=== PATIENT | male | born 1980 | race Asian ===

== ENCOUNTER 2024-08-03 21:37 | Inpatient (IN) | payer MEDICAID, SELFPAY ==
[2024-08-03] VITALS (10 sets, daily range): BP systolic 80–124; BP diastolic 43–69; PULSE 100–130; RESP 16–32; TEMP 37.1; O2SAT 98–100; BMI 24.3
--- NOTE | 2024-08-03 21:47 | EKG_ITS ---
[facility] Test Date: 2024-08-03 Pat Name: LORNA PATINO Department: Room: - Gender: Male Patents Examiner: : 1980 Requested By: Raymundo Steven Order Number: [id number] Reading MD: Raymundo Steven Measurements Intervals [place] Rate: 108 P: 2 NC: 132 QRS: 37 QRSD: 94 T: 29 QT: 362 QTc: 487 Interpretive Statements SINUS TACHYCARDIA NONSPECIFIC T-WAVE ABNORMALITY ABNORMAL RHYTHM ECG No previous ECG available for comparison /store/S0/[id number].pdf
[2024-08-03] MEDS: OCTREOTIDE ACET INJ 1,000 MCG in SODIUM CHLORIDE 0.9% 100 ML 5.1 MCG IV (22:01)
[2024-08-03] MEDS: PANTOPRAZOLE/NS 80MG IV PREMIX 80 MG/100 ML BAG 400 MG IV (22:02)
[2024-08-03] MEDS: OCTREOTIDE ACET INJ 50 mCg/ML VIAL IV (22:02)
[2024-08-03] MEDS: PANTOPRAZOLE/NS 80MG IV PREMIX 80 MG/100 ML BAG 10 MG IV (22:03)
[2024-08-03 22:14] LABS: Basophils # (Auto) 0.1 Thou/mm3 (0.0-0.2); Basophils % (Auto) 1 % (0-2.5); Eosinophils # (Auto) 0.1 Thou/mm3 (0.0-0.5); Eosinophils % (Auto) 1 % (0-10); Immature Granulocytes % (Auto) 0 % (0-0); Immature Granulocytes Auto 0.04 Thou/mm3 (0.00-0.00); Lymphocytes % (Auto) 12 % (10-50); Mean Corpuscular HGB Conc 27.1 g/dl (31.0-37.0); Mean Corpuscular Volume 67 fL (80-100); Monocytes # (Auto) 1.3 Thou/mm3 (0.0-0.8); Monocytes % (Auto) 15 % (0-12); Neutrophils # (Auto) 6.3 Thou/mm3 (1.8-7.7); Neutrophils % (Auto) 71 % (37-80); Nucleated Red Blood Cell # 0.09 Thou/mm3 (0.00-0.00); Nucleated Red Blood Cell % 1 /100 WBC (0); RDW Standard Deviation 63.8 fL (35.1-43.9); Red Blood Count 2.55 Miln/mm3 (4.50-5.90); White Blood Count 8.9 Thou/mm3 (3.8-10.6)
--- NOTE | 2024-08-03 22:15 | PC.NURSE ---
[address]mL vomitted dr bautista aware
[2024-08-03 22:18] LABS: Platelet Count 78 Thou/mm3 (140-440)
[2024-08-03 22:19] LABS: Hemoglobin 4.6 g/dL (13.5-16.0)
[2024-08-03 22:20] LABS: Partial Thromboplastin Time 34.2 Seconds (22.0-36.0); Slide Review Platelets confirmed
[2024-08-03 22:21] LABS: Path Review Blood Smear Sent to Pathologist
[2024-08-03 22:26] LABS: Alanine Aminotransferase 19 U/L (10-49); Albumin, Serum 2.1 gm/dL (3.5-5.0); Albumin/Globulin Ratio 0.4 (1.2-2.2); Alkaline Phosphatase 152 U/L (46-116); Anion Gap 10 (7-16); Aspartate Amino Transferase 74 U/L (0-34); BUN/Creatinine Ratio 11 Ratio (12-20); Bilirubin,Total 9.5 mg/dL (0.3-1.2); Blood Urea Nitrogen 8 mg/dL (9-23); Calcium (Corrected) 8.3 mg/dL (8.5-10.1); Carbon Dioxide 17.5 mMol/L (20.0-31.0); Chloride 103 mMol/L (98-107); Creatinine (Component) 0.7 mg/dL (0.6-1.3); Estimated Creatinine Clearance 124.6 mL/min (>60); Globulin 5.1 gm/dL (2.3-3.5); Glucose 120 mg/dL (74-106); Osmolality,Calculated 260 (275-295); Potassium 3.4 mMol/L (3.4-5.1); Sodium 130 mMol/L (136-145); Total Protein 7.2 gm/dL (5.7-8.2); Troponin I < 0.002 ng/mL (0.0-0.045); eGFR > 60 See Note
[2024-08-03 22:33] LABS: Calcium 6.8 mg/dL (8.3-10.6)
[2024-08-03] MEDS: PHYTONADIONE INJ 10 MG/ML AMP IM (23:06)
--- NOTE | 2024-08-03 23:08 | PD.EDADULT ---
ED General RME/HPI General Chief complaint: GI Bleed Stated complaint: VOMITING BLOOD Time Seen by Provider: 08/03/24 21:42 Source: patient and EMS Arrival date/time: 08/03/24 21:37 Mode of arrival: EMS Limitations: no limitations RME / HPI RME / HPI narrative: Dr. Steven?s Main ED Evaluation: 44-year-old male with a history of alcohol cirrhosis, esophageal varices (last banding 2 years ago) continued alcohol consumption, who presents to the emergency department approximately 2 to 3 days of black tarry stools and now multiple episodes of emesis with bright red blood. He denies chest pain or weakness. Related Data Previous Rx's ?Medication ?Instructions ?Recorded ferrous sulfate 325 mg (65 mg 325 mg PO QDAY 30 days #30 tabs 10/13/22 iron) tablet pantoprazole 40 mg tablet,delayed 40 mg PO QDAY 30 days #30 tabs 10/13/22 release (Protonix) propranolol 10 mg tablet 20 mg (2 x 10 mg) PO BID 30 days 10/13/22 #120 tabs Allergies Allergy/AdvReac Type Severity Reaction Status Date / Time No Known Allergies Allergy Verified 10/13/22 13:45 Review of Systems Review of Systems Systems Reviewed: All systems reviewed, normal except as documented Past Medical History Past Medical History NEUROLOGIC: Negative Neurological Disorders or Seizures CARDIAC: Negative Cardiac Disorders or Congestive Heart Failure RESPIRATORY: Negative Chronic Obstructive Pulmonary Disease (COPD) GASTROINTESTINAL: Positive Cirrhosis, Gastrointestinal Bleed and Esophageal Varices; Negative Gastrointestinal Disorders or Hepatitis GENITOURINARY: Negative Genitourinary Disorders or Renal Disease MUSCULOSKELETAL: Negative Musculoskeletal Disorders ENDOCRINE: Negative Endocrine Disorders, Diabetes Mellitus Type 1 or Diabetes Mellitus Type 2 HEMATOLOGIC: Negative Blood Disorders OTHER HISTORY: Positive Blood Transfusions and Chicken Pox; Negative Hospitalization, Autoimmune Disease, Down Syndrome, Developmental Delay, Falls, Blood Transfusion Reaction, Anesthesia Reactions, MRSA, VRSA, Vancomycin-Resistant Enterococci, Human Immunodeficiency Virus (HIV), Measles, Mumps, Rubella ([place] Measles), Pertussis, Clostridium Difficile or Cancer Family History FAMILY HISTORY: Positive Family Respiratory Disorders and Family Cancer; Negative Family Psychiatric Problems, Family Cardiac Disorders, Family Gastrointestinal Problems, Family Surgery or Family Anesthesia Reaction Surgical History SURGICAL: Positive Abdominal Surgery (banded varices) Social History SMOKING STATUS: Light (< 1 pack/day) ED Exam Narrative Physical exam: GENERAL APPEARANCE: AxOx4, chronically ill-appearing, pale, full body jaundice HEENT: NC, AT. MMM. EOMI, scleral icterus, pallor NECK: Supple without lymphadenopathy. No stiffness or restricted ROM. HEART: Normal rate and regular rhythm, normal S1/S1, no m/r/g LUNGS: CTAB, moving air well. No crackles or wheezes are heard. ABDOMEN: Soft, distended with fluid wave with good bowel sounds heard. BACK: No midline C/T/L spine pain or deformity, No CVAT, no obvious deformity. EXTREMITIES: Without cyanosis, clubbing or edema. MUSCULOSKELETAL: FROM of all major joints, no chest tenderness NEUROLOGICAL: Grossly nonfocal. Alert and oriented, moving all 4 extremities. CN not formally tested but appear grossly intact. Observed to ambulate with normal gait. Skin: Warm and dry without any rash. General Limitations: Present no limitations Course Quality Measures none Orders Category Date Time Status EKG (ED ONLY) *Do not use* NOW Care 08/03/24 21:47 Completed Insert IV NOW Care 08/03/24 21:47 Active Insert NG / OG tube NOW Care 08/03/24 23:23 Active NG / OG Tube to LIS NOW Care 08/03/24 23:23 Active Transfuse,blood/blood products NOW Care 08/03/24 22:41 Active EKG (ED Only) Stat Exams 08/03/24 21:47 Draft CBC Stat Lab 08/03/24 21:57 Completed CMP [Comprehensive Metabolic Panel] Stat Lab 08/03/24 21:57 Completed FFP [Fresh Frozen Plasma] Stat Lab 08/03/24 21:57 Results Partial Thromboplastin Time Stat Lab 08/03/24 21:57 Completed Path Review Blood Smear Stat Lab 08/03/24 21:57 Completed Prothrombin Time with INR Stat Lab 08/03/24 21:57 Completed Troponin I Stat Lab 08/03/24 21:57 Completed Type and Screen Stat Lab 08/03/24 21:57 Results prbc [Red Blood Cells] Stat Lab 08/03/24 21:57 Results Octreotide Acet Inj [SandoSTATIN Inj] Med 08/03/24 21:45 Discontinued 50 mcg IV X1 ONE Pantoprazole/Ns 80Mg IV Premix [Protonix/NS 80mg IV Med 08/03/24 21:46 Active Premix] 80 mg in 100 ml IV X1 Pantoprazole/Ns 80Mg IV Premix [Protonix/NS 80mg IV Med 08/03/24 21:46 Discontinued Premix] 80 mg in 100 ml IV X1 Phytonadione Inj [Vitamin K Inj] Med 08/03/24 22:53 Discontinued 10 mg IM X1 ONE Sodium Chloride 0.9% [Ns] 100 ml Med 08/03/24 21:47 Active Octreotide Acet Inj [SandoSTATIN Inj] 1,000 mcg IV 50 mcg/hr Vital Signs Vital signs: Vital Signs Temperature 98.7 F 08/03/24 21:38 Pulse Rate 118 H 08/03/24 21:38 Respiratory Rate 19 08/03/24 21:38 Blood Pressure 105/63 08/03/24 21:38 Pulse Oximetry (%) 99 08/03/24 21:38 Oxygen Delivery Method Room Air 08/03/24 21:38 SpO2 99% on room air, patient is not hypoxic MDM Patient data External records reviewed:: [facility] previous records and EMS form Clinical information provided by:: patient and spouse Social determinants that could affect healthcare access:: alcohol use Patient has the following chronic illnesses:: Cirrhosis How is presenting disease/condition affected by chronic disease/condition?: caused by Evaluation data The following diagnostics were reviewed and interpreted by me:: lab results, radiology exam(s) and EKG tracing(s) Lab and/or radiology exams considered but not ordered:: None Interpretation Summary: As per narrative Medications Medications considered but not ordered:: None Medication administrations:: Medication Administration History Pantoprazole Sodium (Protonix/Ns 80mg Iv Premix) 80 mg in 100 mls @ 10 mls/hr IV X1 ONE Stop: 08/04/24 07:45 Last Admin: 08/03/24 22:03 Dose: 10 mls/hr Documented By: EF Octreotide Acetate 1,000 mcg/ (Sodium Chloride) 102 mls @ 5.1 mls/hr IV .Q20H ONE; Protocol Stop: 08/04/24 17:46 Last Admin: 08/03/24 22:01 Dose: 50 mcg/hr, 5.1 mls/hr Documented By: EF Discontinued Medications Pantoprazole Sodium (Protonix/Ns 80mg Iv Premix) 80 mg in 100 mls @ 400 mls/hr IV X1 ONE Stop: 08/03/24 22:00 Last Infusion: 08/03/24 22:31 Dose: Infused Documented By: Admin: 08/03/24 22:02 Dose: 400 mls/hr Documented By: EF Octreotide Acetate (Octreotide Acet Inj 50 Mcg/Ml Vial) 50 mcg IV X1 ONE Stop: 08/03/24 21:46 Last Admin: 08/03/24 22:02 Dose: 50 mcg Documented By: EF Phytonadione (Phytonadione Inj 10 Mg/Ml Amp) 10 mg IM X1 ONE Stop: 08/03/24 22:54 Last Admin: 08/03/24 23:06 Dose: 10 mg Documented By: EF Above Consultations Consultation(s) initiated? (list below): Yes Consultation #1 (Physician, Specialty, Details): Gastroenterology, Dr. Orozco, we discussed case at length and agrees with starting IV pantoprazole, octreotide, PRBCs, FFP, and vitamin K. He is requesting NG tube placed on LIS. Plan for EGD tomorrow and possible banding of esophageal varices.. Time: 23:15 Diagnosis Differential Diagnosis ED Complaint MDM: Upper GI bleed, lower GI bleed, cirrhosis Most likely diagnosis given after review of the tests above:: See below Admission Indicated Admission indicated?: indicated Explain why admission is indicated or not indicated:: As per narrative Admission Request Was there a request for admission?: Yes Admission Attestation Admission request attestation: Discussed case with [Dr. Maciel] from Hospitalist service regarding admission. Discussed patients ED course, exam findings, labs, and radiology results. The Hospitalist [agrees] to accept the patient for admission. Disposition Plan Disposition Plan: Admit Medical Decision Making MDM Narrative MDM Narrative: Mr. Moore is a pleasant, [place]isian speaking Laotian gentleman, with a history of cirrhosis and continued alcohol use who presents to the emergency department symptoms consistent with a brisk upper GI bleed. He is at risk for esophageal varices and bleeding from varices as exam is consistent with cirrhosis suggestive of portal hypertension. As a result he was started immediately on arrival on intravenous Protonix and Sandostatin. Vital signs were stable and laboratory testing revealed a critically low hemoglobin at 4.6, thrombocytopenia at 76, and a coagulopathy with an INR of 2.0. He also has an elevation of his bilirubin to 9 (baseline 4-5) with a critically low calcium of 6.4. Given his severe anemia and coagulopathy, he will be transfused packed red blood cells, fresh frozen plasma, and given an IM dose of vitamin K. Case was discussed at length with GI specialist on, Dr. Orozco, and agrees with current management with request for NG tube for intermittent suction and plan for EGD tomorrow morning. I reviewed the case with the hospitalist on and agrees to admit and will monitor NG tube blood output, if significant and volume possibly admit to ICU overnight. Patient is very ill, in guarded condition. Differential Diagnosis Differential Diagnosis: Upper GI bleed, lower GI bleed, cirrhosis Medical Records Medical records reviewed: Yes I reviewed the patient's medical records. Lab Data Lab results reviewed: Yes I reviewed the patient's lab results. 08/03/24 21:57 08/03/24 21:57 Labs: Lab Results 08/03/24 Range/Units 21:57 WBC 8.9 (3.8-10.6) Thou/mm3 RBC 2.55 L (4.50-5.90) Miln/mm3 Hgb 4.6 L* (13.5-16.0) g/dL Hct 17.0 L* (41.0-53.0) % MCV 67 L (80-100) fL MCH 18.0 L (25.0-35.0) pg MCHC 27.1 L (31.0-37.0) g/dl RDW Std Deviation 63.8 H (35.1-43.9) fL Plt Count 78 L (140-440) Thou/mm3 Neut % (Auto) 71 (37-80) % Lymph % (Auto) 12 (10-50) % Isabella % (Auto) 15 H (0-12) % Eos % (Auto) 1 (0-10) % Baso % (Auto) 1 (0-2.5) % Neut # (Auto) 6.3 (1.8-7.7) Thou/mm3 Lymph # (Auto) 1.0 (1.0-4.8) Thou/mm3 Isabella # (Auto) 1.3 H (0.0-0.8) Thou/mm3 Eos # (Auto) 0.1 (0.0-0.5) Thou/mm3 Baso # (Auto) 0.1 (0.0-0.2) Thou/mm3 Immature Gran # (Auto) 0.04 H (0.00-0.00) Thou/mm3 Absolute Nucleated RBC 0.09 H (0.00-0.00) Thou/mm3 Immature Gran % 0 (0-0) % Nucleated RBC % 1 H (0) /100 WBC Smear Path Review Sent to Pathologist PT 21.0 H (9.0-12.2) Seconds INR 2.0 H (0.9-1.3) APTT 34.2 (22.0-36.0) Seconds Sodium 130 L (136-145) mMol/L Potassium 3.4 (3.4-5.1) mMol/L Chloride 103 (98-107) mMol/L Carbon Dioxide 17.5 L (20.0-31.0) mMol/L Anion Gap 10 (7-16) BUN 8 L (9-23) mg/dL Creatinine 0.7 (0.6-1.3) mg/dL Estim Creat Clear Calc 124.6 (>60) mL/min eGFR > 60 (60 - ) See Note BUN/Creatinine Ratio 11 L (12-20) Ratio Glucose 120 H (74-106) mg/dL Calculated Osmolality 260 L (275-295) Calcium 6.8 L* (8.3-10.6) mg/dL Corrected Calcium 8.3 L (8.5-10.1) mg/dL Total Bilirubin 9.5 H (0.3-1.2) mg/dL AST 74 H (0-34) U/L ALT 19 (10-49) U/L Alkaline Phosphatase 152 H (46-116) U/L Troponin I < 0.002 (0.0-0.045) ng/mL Total Protein 7.2 (5.7-8.2) gm/dL Albumin 2.1 L (3.5-5.0) gm/dL Globulin 5.1 H (2.3-3.5) gm/dL Albumin/Globulin Ratio 0.4 L (1.2-2.2) Misc Test Result Platelets confirmed Crossmatch See Detail Blood Bank Wristband ID Yes Critical Care Time Critical Care Time Critical Care Time: Yes Total Critical Care Time (min.): 36 Attestation: Excluding billable procedures for the rep response, analysis, management, deliberation with specialist, treatment, and documentation of at the very possible risk of cardiovascular decompensation and or Discharge Plan Plan Patient Disposition: Admit Acute Care w/in Hospital Prescriptions/Referrals Prescriptions/Med Rec: No Action propranolol 10 mg tablet 20 mg PO BID 30 Days Qty: 120 1RF pantoprazole [Protonix] 40 mg tablet,delayed release (DR/EC) 40 mg PO QDAY 30 Days Qty: 30 3RF ferrous sulfate 325 mg (65 mg iron) tablet 325 mg PO QDAY 30 Days Qty: 30 1RF Referrals: No Primary/Family,Physician [Primary Care Provider] - In 1 week Problem List Clinical Impression: Gastrointestinal bleeding, Cirrhosis, alcoholic, Severe anemia, Thrombocytopenia Patient/Caregiver Discharge Instructions Print Language: Tunisian Stand Alone Forms: [employer]a Award Info., Patient Portal Info Letter
[2024-08-04] VITALS (107 sets, daily range): BP systolic 76–122; BP diastolic 40–79; PULSE 79–118; RESP 12–28; TEMP 36.9–38; O2SAT 17–100; BMI 26.2
--- NOTE | 2024-08-04 00:22 | XR_ITS ---
Examination: CT abdomen and pelvis without contrast. Coronal 3-D reconstructions. Sagittal 2-D reconstructions. Date and time of exam:August 04, 2024 0059 hrs. Indications: Abdominal pain one week, vomiting blood today CTDI: vol (mGy): 7.90 DLP: (mGycm): 440 Technique: Axial images of the abdomen have been obtained, 3 mm slice thickness Intravenous contrast material has not been administered. Low dose protocols were performed. One or more of the following dose reduction techniques were used; automated exposure control, adjustment of the mA and/or KV according to patient size, use of iterative reconstruction technique. Findings: Cirrhosis, liver irregular in contour, hepatomegaly 20 cm Splenomegaly 16 cm Suspicious for esophageal varices Mild ascites Contracted gallbladder, gallbladder wall is thickened, however, again the patient has ascites No pancreatic or adrenal mass Atrophic significantly scarred left kidney, no hydronephrosis Inflamed appendix is not depicted No bowel obstruction Diffuse wall thickening involving the colon and rectum No significant prostatomegaly Urinary bladder wall thickening up to 6 mm Moderate osteopenia Impression: Cirrhosis Hepatosplenomegaly Suspicious for esophageal varices Gallbladder wall is thickened and edematous, however the patient has ascites Atrophic significantly scarred left kidney Hepatic colopathy, proctitis pattern Cystitis pattern
--- NOTE | 2024-08-04 00:54 | PC.NURSE ---
patient taken to CT
--- NOTE | 2024-08-04 01:21 | ESHP_ITS ---
Documentation for date of: 08/04/24 [facility] History of Present Illness History of present illness: Mr. Bakari Moore is a 44 year old gentleman with a past medical history of EtOH abuse, alcoholic cirrhosis, status post variceal banding from a GI bleed (09-21-2022) who presented to the ED of 08/03/2024 with a chief complaint of abdominal pain and hematemesis. The patient states the abdominal pain started approximately 1 week prior to presentation. He describes his abdominal pain as a constant, diffuse, non-radiating, squeezing type pain. He notes the pain is worsened by PO intake, even in small quantities. He did endorse sonsuming 400 mg of Advil twice a day for the last 4-5 days. He also noted associated symptoms of progressive generalized weakness and fatigue. He noted on the morning of presentation, he began to experience hematemesis which was described as dark red blood. He also noted he had been having black stools for some time now although upon review of the patient's home medication's, ferrous sulfate is prescribed. Due to his symptoms not resolving, he presented to the ED. ED course: The patient's vitals on arrival were initially within normal limits except for a heart rate of 118. The patient reportedly vomited approximately 600 cc of bright red blood in the ED. The patient was immediately started on IV Protonix drip and octreotide drip, due to concern for variceal bleeding. Lab studies revealed a low hemoglobin/hematocrit of 4.6/17% respectively, a platelet count of 76 and a coagulopathy with an INR of 2.0. LFTs were notable for a elevated AST of 74 and alkaline phosphatase of 152 and a T. bili of 8.8. Patient was transfused with 2 units of PRBCs, 2 units FFP and a intramuscular dose of vitamin K. GI services were consulted who recommended the patient be admitted and requested an NG tube be placed on LIS with EGD planned in the morning. During this time, the patient became hypotensive with a MAP fluctating below and above 65. Due to the patient's critical status the patient was subsequently admitted to the ICU for continued management and the possible need for pressor support. Review of Systems Review of Systems Systems Reviewed: All systems reviewed, normal except as documented Past Medical History Past Medical History Comments PMH COMMENT: Past Medical History: f EtOH abuse, alcoholic cirrhosis, status post variceal banding from a GI bleed (09-21-2022) Past Surgical History: None Home Medications: None Allergies: NKDA Family History: Father Social History: EtOH usage: Longstanding history of EtOH consumption, states he drank 12 pack of berr and half bottle of cognac per da for many years. Last drink 6 days prior. Smoking History: 1.5 PPD x 33 years = 49.5 pack years Illicit drug usage: Denies any history of illicit drug consumption Exam Vital Signs Temp Pulse Resp BP Pulse Ox O2 Del Method 98.7 F 107 H 21 H 95/45 L 100 Room Air 08/03/24 21:38 08/04/24 00:00 08/04/24 00:00 08/04/24 00:00 08/04/24 00:00 08/04/24 00:00 Narrative Exam General: jaundiced, well nourished, sick appearing, alert and interactive HEENT: NC/AT, B/L scleral icterus, conjunctival pallor present, Lungs: Normal respiratory effort, no wheezing rhonchi or rales, CTAB CVS: Tachycardic, S1, loud S2, No murmurs, rubs or gallops ABD: non-distended, soft, diffuse tenderness to palpation most prominent in the LLQ EXT: No LE edema, radial pulses 2+, dorsalis pedis pulses 2+, warm well perfused, Neuro: GCS 15, alert and oriented, no gross focal neurological deficits Lines: None PIV: Salazar: NO Drips: Octreotide Pantoprazole Results: Labs 08/03/24 21:57 08/04/24 00:50 Labs: Short CBC 08/03/24 Range/Units 21:57 WBC 8.9 (3.8-10.6) Thou/mm3 Hgb 4.6 L* (13.5-16.0) g/dL Hct 17.0 L* (41.0-53.0) % Plt Count 78 L (140-440) Thou/mm3 BMP 08/03/24 21:57 Sodium 130 L Potassium 3.4 Chloride 103 Carbon Dioxide 17.5 L BUN 8 L Creatinine 0.7 Glucose 120 H Calcium 6.8 L* Cardiac Enzymes 08/03/24 Range/Units 21:57 Troponin I < 0.002 (0.0-0.045) ng/mL Liver Function 08/03/24 Range/Units 21:57 Total Bilirubin 9.5 H (0.3-1.2) mg/dL AST 74 H (0-34) U/L ALT 19 (10-49) U/L Alkaline Phosphatase 152 H (46-116) U/L Albumin 2.1 L (3.5-5.0) gm/dL Quality Measures Quality Measures none Medications Home Medications and Allergies Home Medications ?Medication ?Instructions ?Recorded ?Confirmed ?Type No Known Home Medications 08/04/24 08/04/24 History Allergies Allergy/AdvReac Type Severity Reaction Status Date / Time No Known Allergies Allergy Verified 10/13/22 13:45 Visit Medications Acetaminophen (Acetaminophen 325 Mg Tablet) 650 mg PO Q6H PRN PRN Reason: FEVER >101 Stop: 09/03/24 00:24 Acetaminophen (Acetaminophen 325 Mg Tablet) 650 mg PO Q6H PRN PRN Reason: PAIN SCALE 1-3 (mild Stop: 09/03/24 00:24 Pantoprazole Sodium (Protonix/Ns 80mg Iv Premix) 80 mg in 100 mls @ 10 mls/hr IV X1 ONE Stop: 08/04/24 07:45 Last Admin: 08/03/24 22:03 Dose: 10 mls/hr Octreotide Acetate 1,000 mcg/ (Sodium Chloride) 102 mls @ 5.1 mls/hr IV .Q20H ONE; Protocol Stop: 08/04/24 17:46 Last Admin: 08/03/24 22:01 Dose: 50 mcg/hr, 5.1 mls/hr Ceftriaxone Sodium/Dextrose (Rocephin/D5w 1gm Iv Premix) 50 mls @ 100 mls/hr IV DAILY@2100 [facility] Stop: 08/11/24 01:04 Sodium Chloride (Ns) 1,000 mls @ 75 mls/hr IV .[id number] [facility] Stop: 08/05/24 03:48 Ondansetron HCl (Ondansetron Inj 2 Mg/Ml Inj 2 Ml) 4 mg IV Q6H PRN; Protocol PRN Reason: NAUSEA OR VOMITING Stop: 09/03/24 00:24 Pharmacy Consult (Pharmacy Renal Dose Adjustment 1 Ea) 1 each XX QDAY [facility] Stop: 09/03/24 08:59 Discontinued Medications Pantoprazole Sodium (Protonix/Ns 80mg Iv Premix) 80 mg in 100 mls @ 400 mls/hr IV X1 ONE Stop: 08/03/24 22:00 Last Infusion: 08/03/24 22:31 Dose: Infused Octreotide Acetate (Octreotide Acet Inj 50 Mcg/Ml Vial) 50 mcg IV X1 ONE Stop: 08/03/24 21:46 Last Admin: 08/03/24 22:02 Dose: 50 mcg Phytonadione (Phytonadione Inj 10 Mg/Ml Amp) 10 mg IM X1 ONE Stop: 08/03/24 22:54 Last Admin: 08/03/24 23:06 Dose: 10 mg Assessment & Plan Plan Assessment & Plan Neurological No active issues, Alert and oriented to person, place, time and situation. Cardiology Currently the patient is hemodynamically stable with a MAP > 65. However due to borderline blood pressure in the setting of active bleeding and possible impending hemorrhagic shock, will admit to ICU for the possible need for pressor support. Pulmonary No active issues, saturating appropriately in ambient air. Gastrointestinal #GI bleed Patient endorsed multiple episodes of melena and acute onset hematemesis with bright red blood prior to presentation. The patient does have a prior history of bleeding with endoscopy revealing variceal bleeding which was subsequently banded in 2022. Patient is known ti have a long history of EtOH substance abuse with the development of cirrhosis and variceal bleeding. The source of the patient current bleeding is most likely to be variceal in etiology. Patient also endorse NSAID intake over the last several days. Hg/HCT: 4.6/17.0% on admission Differential diagnoses include but are not limited to: peptic ulcer disease (H.Pylori vs NSAID), erosive gastritis, variceal bleeding, Nelida Forde tear, AVM, malignancy. Finesse-Blatchford = 12 points indicating a High Risk GI bleed that is likely to require medical intervention transfusion, endoscopy, or surgery. A higher GBS also correlated with a higher likelihood of needing intervention (scores greater than or equal to 6 are associated with >50% risk of needing intervention) Managment: -GI consulted: Recommends to insert NG tube with request for NG tube for intermittent suction and plan for EGD 08/04/2024 -Patient started on IV pantoprazole drip -Patient started on octreotide gtt -IV fluid resuscitation: NS at 75 cc/h; maintain MAP greater than 65 -Hold NSAIDs, steroids, ASA, chemical DVT PXP -NPO pending EGD -SBO PXP: Ceftriaxone 1 gram QDAY -2 units PRBC's -2 units FFP -2 units Platelets -Continue to trend H/H #Cirrhosis 2/2 chronic EtOH substance use disorder, decompensated #Transaminitis #Ascites Patient with known history of longstanding EtOH substance abuse with cirrhosis as evidenced on CT-A/P. Physical exam notable for jaundice and scleral icterus. LFT: AST 49, ALT 14, Alkaline Phos. 138 - MELD-Na: 27 points - Last EGD 10/04/2022: Normal esophageal mucosa in mid and upper esophagus. Grade 1 esophageal varices in lower third of esophagus. There is an evidence of post banding ulcers in the lower third of esophagus with no evidence of recent bleeding and completely clean-based. Diffuse portal gastropathy. - No evidence of Hepatic Encephalopathy on exam - Ascites as evidenced on CT A/P, however only a small amount - SBP PXP: ceftriaxone 1 gram QD - Esphageal Varices: octreotide gtt, Pantoprazle gtt - Albumin for volume re-expansion Renal/Genitourinary Stable, BUN & Creatinine 11 and 0.9 respectively #Lactic Acidosis Lactic Acid: 4.0 IVF resusitation: NS at 75 cc/hr Endocrine Stable, no active issues, TSH within reference range Hemetology #Acute blood loss anemia #Acute on chronic microcytic anemia #Thrombocytopenia #Coagulopathy H/H on admission: 4.6/17.0%; MCV: 67, Platelets: 78 PT/INR: 21.0/ 2.0 DDX: acute blood loss, hemolysis, chronic inflammation leading to bone marrow supression in setting of chronic EtOH substance abuse Likely acute on chronic due to longstanding EtOH substance use disorder and acute GI bleed EGD 10/04/2022: Normal esophageal mucosa in mid and upper esophagus. Grade 1 esophageal varices in lower third of esophagus. There is an evidence of post banding ulcers in the lower third of esophagus with no evidence of recent bleeding and completely clean-based. Diffuse portal gastropathy. Infectious Disease No signs of active infection. Antibiotic regimen: Ceftiaxone 1 gram QD for SBP PXP Skin #Jaundice -In the setting of liver cirrhosis Fluids Electrolytes Nutrition: NPO, NS at 75 cc/hr Analgesia: N/A Sedation: N/A Thromboprophylaxis: SCD's, no chemical pxp in setting of active GI bleed Head up position: Ulcer prophylaxis: Pantoprazole GTT Glycemic control: N/A Spontaneous breathing trial: N/A Bowel regimen: None Indwelling catheter: N/A CODE STATUS: FULL CODE Disposition: Patient requires admission to ICU for close monitoring for possible need for vasopressors in the setting of active GI bleeding. LPatient's case was discussed with supervising attending physician Dr. Janell Mayfield M.D. Internal Medicine PGY-3 Attending Provider Attestation/Addendum I have examined the patient, reviewed labs and imaging findings, discussed the case with the resident(s), and reviewed entered orders. I agree with the plan of care as outlined in this note, with these additional summaries/recommendations: Patient is a 44-year-old male with a medical history of cirrhosis, esophageal varices, TK and alcohol use disorder who presented to [facility] emergency department on 08/03/2024 with chief complaints of black tarry stools for 2 to 3 days and now severe hematemesis and thus hospitalist team consulted for continuation of care. #GI Bleed (upper) # Symptomatic anemia #Hypotension Previous history of GI bleeds secondary to esophageal varices which were banded approximately 2 years ago. Difficult to determine amount of blood loss at this point but apparently had 600 cc bloody emesis Symptoms include hematemesis and melena with borderline hemodynamic instability Most likely secondary to esophageal varices versus less likely PUD, gastritis, Nelida-Forde tear, AVM GI consulted for endoscopic intervention, recommendations appreciated Finesse-Blatchford Bleeding Score: 11 points indicating high risk GI bleed that is likely to require medical intervention with transfusion, endoscopic, or surgery. N.p.o. 2 large-bore IVs (18-gauge or greater) IVF resuscitation to maintain MAP greater than 65, will start low-dose Levophed if needed Type and screen Transfuse for hemoglobin less than 7, platelet less than 50, INR greater than 1.5 Pantoprazole gtt. Hold NSAIDs, steroids, aspirin Octreotide 50 mcg x 1 then octreotide gtt. Rocephin 1 g daily x 7 days (Cirrhosis) Plan: 2 units PRBCs, 2 units FFP, and vitamin K 10 mg IM x 1 ordered. 2 units platelets ordered from [place] to be placed on hold. Gastroenterology consulted, recommendations appreciated. While evaluating patient in the ED he endorsed lightheadedness, MAP was noted to trend between 63 and 65, and given the severity of hematemesis we will admit patient to the ICU. If needed we will start low-dose Levophed. # Decompensated cirrhosis Secondary to chronic alcohol use with evidence of synthetic liver dysfunction with coagulopathy, hypoalbuminemia, thrombocytopenia, and hyperbilirubinemia MELD NA score: 27 points indicating 27-32% estimated 90-day mortality Child-Hale Score: 10 points-child class C, life expectancy 1 to 3 years, abdominal surgery perioperative mortality rate of approximately 82% Daily LFT, platelet, INR, sodium Volume Management: Will receive blood products and maintenance fluid Ascites: Pending CT abdomen Hepatic encephalopathy: Not present and monitor for now Variceal ppx: Please refer to GI bleed section No more than 2 g Tylenol per day Low-sodium diet #Lactic Acidosis Most likely type A secondary to symptomatic anemia On admission LA 4.0 Plan: Start Blood products and IV fluids. Trend lactic acid #Electrolyte Abnormalities -Plan: Continue to replace as needed #Alcohol Use Disorder Plan: Monitor for now, reports last drink was [address] Maciel
[2024-08-04 01:37] LABS: Alanine Aminotransferase 14 U/L (10-49); Albumin/Globulin Ratio 0.4 (1.2-2.2); Alkaline Phosphatase 138 U/L (46-116); Anion Gap 9 (7-16); Aspartate Amino Transferase 49 U/L (0-34); BUN/Creatinine Ratio 12 Ratio (12-20); Bilirubin,Total 8.8 mg/dL (0.3-1.2); Blood Urea Nitrogen 11 mg/dL (9-23); Calcium (Corrected) 8.4 mg/dL (8.5-10.1); Carbon Dioxide 17.6 mMol/L (20.0-31.0); Chloride 104 mMol/L (98-107); Cholesterol 106 mg/dL (132-200); Creatinine (Component) 0.9 mg/dL (0.6-1.3); Estimated Creatinine Clearance 96.9 mL/min (>60); Globulin 4.6 gm/dL (2.3-3.5); Glucose 111 mg/dL (74-106); HDL Cholesterol < 5 mg/dL (40-60); LDL Cholesterol,Calculated 74 mg/dL (0-130); Magnesium 1.3 mg/dL (1.6-2.6); Osmolality,Calculated 263 (275-295); Potassium 3.8 mMol/L (3.4-5.1); Sodium 131 mMol/L (136-145); Thyroid Stimulating Hormone 1.54 uIU/mL (0.55-4.78); Total Protein 6.6 gm/dL (5.7-8.2); Triglycerides 135 mg/dL (30-150); eGFR > 60 See Note
[2024-08-04 01:45] LABS: Calcium 6.8 mg/dL (8.3-10.6)
[2024-08-04] MEDS: SODIUM CHLORIDE 0.9% 1000 ML 1,000 ML 75 ML IV (01:49)
--- NOTE | 2024-08-04 01:49 | PRELIM_ITS ---
CT scan of the abdomen and pelvis without intravenous contrast (axial sections with sagittal and bry nal reformats) August 04, 2024 at 0046 hoursClinical History: Abdominal pain.Comparison: None.Findin gs:The lung bases are clear.The pancreas, kidneys and adrenals are unremarkable on this noncontrast s tudy.Edematous gallbladder wall.Irregular liver margins.Small ascites.Splenomegaly with anteroposteri or diameter of 16.2 cm.No evidence of bowel obstruction. No evidence of appendicitis. There is no mes enteric or retroperitoneal adenopathy.The urinary bladder is unremarkable. There is no free air.The osseous structures are unremarkable.Impression:1. Cirrhosis associated with ascites and splenomegaly. 2. Edematous gallbladder wall, possibly due to cirrhosis or possibly due to acute cholecystitis. If a cute cholecystitis is clinically suspected consider correlation with right upper quadrant ultrasound. Report Electronically Signed By: Ryan Frey 08/04/2024 1:49:07 AM [EST]
[2024-08-04] MEDS: cefTRIAXone/D5w 1gm IV premix 50 ML IV ×2 (02:08→20:57)
[2024-08-04 04:03] LABS: Reflex Lactate? Y
--- NOTE | 2024-08-04 04:27 | PC.NURSE ---
MD singh stated to hold NG/OG insertion for now and to administer 2nd unit of PRBC and check h&h first
[2024-08-04] MEDS: ALBUMIN HUMAN 5% IVPB 12.5 GM/250 ML BTL IV ×2 (04:34→08:02)
[2024-08-04] MEDS: POTASSIUM CHL 10 mEq IVPB 10 MEQ/100 ML BAG 100 MEQ IV (04:45)
[2024-08-04] MEDS: Magnesium Sulfate 2 GM Ivpb 2 GM/50 ML BAG IV (04:55)
[2024-08-04 06:20] LABS: Lactate (Lactic Acid) 1.5 mMol/L (0.4-2.0)
[2024-08-04 06:33] LABS: Basophils # (Auto) 0.1 Thou/mm3 (0.0-0.2); Basophils % (Auto) 1 % (0-2.5); Eosinophils # (Auto) 0.1 Thou/mm3 (0.0-0.5); Eosinophils % (Auto) 2 % (0-10); Immature Granulocytes % (Auto) 0 % (0-0); Immature Granulocytes Auto 0.03 Thou/mm3 (0.00-0.00); Lymphocytes % (Auto) 14 % (10-50); Mean Corpuscular HGB Conc 30.7 g/dl (31.0-37.0); Mean Corpuscular Volume 72 fL (80-100); Monocytes % (Auto) 14 % (0-12); Neutrophils % (Auto) 69 % (37-80); Nucleated Red Blood Cell # 0.05 Thou/mm3 (0.00-0.00); Nucleated Red Blood Cell % 1 /100 WBC (0); RDW Standard Deviation 69.9 fL (35.1-43.9); Red Blood Count 2.46 Miln/mm3 (4.50-5.90); White Blood Count 7.2 Thou/mm3 (3.8-10.6)
[2024-08-04 06:34] LABS: Platelet Count 61 Thou/mm3 (140-440)
[2024-08-04 06:36] LABS: Hematocrit 17.6 % (41.0-53.0); Hemoglobin 5.4 g/dL (13.5-16.0)
[2024-08-04 06:38] LABS: Slide Review Platelets confirmed
[2024-08-04] MEDS: POTASSIUM CHL 10 mEq IVPB 10 MEQ/100 ML BAG 50 MEQ IV (06:41)
[2024-08-04 06:53] LABS: Alanine Aminotransferase 16 U/L (10-49); Albumin, Serum 2.1 gm/dL (3.5-5.0); Albumin/Globulin Ratio 0.5 (1.2-2.2); Alkaline Phosphatase 119 U/L (46-116); Anion Gap 9 (7-16); Aspartate Amino Transferase 53 U/L (0-34); BUN/Creatinine Ratio 13 Ratio (12-20); Bilirubin,Total 10.8 mg/dL (0.3-1.2); Blood Urea Nitrogen 12 mg/dL (9-23); Calcium (Corrected) 8.3 mg/dL (8.5-10.1); Carbon Dioxide 18.9 mMol/L (20.0-31.0); Chloride 104 mMol/L (98-107); Cholesterol 106 mg/dL (132-200); Creatinine (Component) 0.9 mg/dL (0.6-1.3); Estimated Creatinine Clearance 96.9 mL/min (>60); Globulin 4.1 gm/dL (2.3-3.5); Glucose 117 mg/dL (74-106); HDL Cholesterol < 5 mg/dL (40-60); LDL Cholesterol,Calculated 76 mg/dL (0-130); Magnesium 1.6 mg/dL (1.6-2.6); Osmolality,Calculated 265 (275-295); Potassium 3.5 mMol/L (3.4-5.1); Sodium 132 mMol/L (136-145); Thyroid Stimulating Hormone 0.84 uIU/mL (0.55-4.78); Total Protein 6.2 gm/dL (5.7-8.2); Triglycerides 126 mg/dL (30-150); eGFR > 60 See Note
[2024-08-04 06:54] LABS: Calcium 6.8 mg/dL (8.3-10.6)
[2024-08-04 07:00] LABS: INR 1.9 (0.9-1.3); Prothrombin Time 20.3 Seconds (9.0-12.2)
[2024-08-04] MEDS: PANTOPRAZOLE/NS 80MG IV PREMIX 80 MG/100 ML BAG 10 MG IV ×2 (07:50→17:41)
--- NOTE | 2024-08-04 09:11 | PD.IMCONS ---
HPI Data of Consult Requesting Physician: Suresh Maciel MD Primary Care Provider: Physician No Primary/Family Consult Narrative Reason for consult: Melena, hematemesis, H/H 4.6/17.0 History of present illness: 44-year-old male who has alcohol induced liver disease who continues to drink esophageal band ligation 2 years ago presents with hematemesis and melanotic stools for 2 to 3 days He was somewhat tachycardic but not hypotensive Presenting hemoglobin hematocrit 4.6 and 17.0 Patient was started on octreotide Protonix and given blood transfusion and moved to the ICU cc:: cc: Suresh Maciel MD Review of Systems Review of Systems Systems Reviewed: All systems reviewed, normal except as documented Past Medical History Surgical History OTHER SURGICAL HX: As in the history of present illness Meds Home Medications and Allergies Home Medications ?Medication ?Instructions ?Recorded ?Confirmed ?Type No Known Home Medications 08/04/24 08/04/24 History Allergies Allergy/AdvReac Type Severity Reaction Status Date / Time No Known Allergies Allergy Verified 10/13/22 13:45 Exam Vital Signs Temp Pulse Resp BP Pulse Ox O2 Del Method 99.7 F 94 18 96/64 100 Room Air 08/04/24 07:44 08/04/24 07:44 08/04/24 07:44 08/04/24 07:44 08/04/24 07:30 08/04/24 02:00 Constitutional Comments: Alert oriented Routine Respiratory Exam Comments: Normal to auscultation Routine Abdominal Exam Comments: Soft nontender Results Labs 08/04/24 10:53 08/04/24 06:15 Labs: Short CBC 08/03/24 08/04/24 08/04/24 Range/Units 21:57 00:50 06:15 WBC 8.9 7.2 (3.8-10.6) Thou/mm3 Hgb 4.6 L* Cancelled 5.4 L* (13.5-16.0) g/dL Hct 17.0 L* Cancelled 17.6 L* (41.0-53.0) % Plt Count 78 L 61 L D (140-440) Thou/mm3 BMP 08/03/24 08/04/24 08/04/24 21:57 00:50 06:15 Sodium 130 L 131 L 132 L Potassium 3.4 3.8 3.5 Chloride 103 104 104 Carbon Dioxide 17.5 L 17.6 L 18.9 L BUN 8 L 11 12 Creatinine 0.7 0.9 0.9 Glucose 120 H 111 H 117 H Calcium 6.8 L* 6.8 L* 6.8 L* Cardiac Enzymes 08/03/24 Range/Units 21:57 Troponin I < 0.002 (0.0-0.045) ng/mL Liver Function 08/03/24 08/04/24 08/04/24 Range/Units 21:57 00:50 06:15 Total Bilirubin 9.5 H 8.8 H D 10.8 H D (0.3-1.2) mg/dL AST 74 H 49 H 53 H (0-34) U/L ALT 19 14 16 (10-49) U/L Alkaline Phosphatase 152 H 138 H 119 H (46-116) U/L Albumin 2.1 L 2.0 L 2.1 L (3.5-5.0) gm/dL Assessment and Plan Additional Assessment & Plan Additional Plan: # Melena # Hematemesis in the setting of cirrhotic liver disease due to alcohol most likely source of bleeding is esophageal variceal bleed or hypertensive portal gastropathy leading to mucosal oozing of blood # Thrombocytopenia # Coagulopathy Plan Agree with the current management with octreotide infusion as well as IV Protonix and blood transfusion Serial CBC N.p.o. Consent obtained for fiberoptic esophagogastroduodenoscopy with possible therapeutic intervention under intravenous moderate sedation Thank you once again for the opportunity to participate in the care of this patient
--- NOTE | 2024-08-04 10:02 | ESPR_ITS ---
<Statement entered by Wilfred Wyatt MD - 08/06/24 10:14> TOTAL CC TIME: 45 MIN I saw and evaluated the patient. I reviewed the resident?s note and agree with findings and plan as documented in the resident?s note. Upon my evaluation, this patient had a high probability of imminent or life- threatening deterioration due to acute blood loss anemia, hypotension in setting of cirrhosis and history of esophageal varices, which required my direct attention, intervention, and personal management. This time is exclusive of time spent on procedures, which are documented separately if performed. post transfusions bp improved no current bleeding EGD confirmed E. varices s/p banding cont octreotide/high dose protonix cont ctx keep in ICU until tomorrow and if no complications can transfer to med/surg unfortunately pt continues to drink alcohol -he endorsed drinking beer the day he developed UGIB <Statement entered by Alexys Martinez MD - 08/04/24 21:12> Senior Resident Attestation: I supervised/discussed management plan with internal audit consultant physician Dr. Parks, and was involved in the care of this patient. I personally saw and examined the patient and discussed the assessment and plan with the entire medicine team, including my attending. I agree with the assessment and plan as documented. Patient's care was discussed with attending physician, Dr. Wyatt. Alexys Martinez MD PGY-2. Documentation for date of: 08/04/24 Subjective Subjective Interval history: Mr. Bakari Moore is a 44 year old gentleman with a past medical history of EtOH abuse, alcoholic cirrhosis, status post variceal banding from a GI bleed (09-21-2022) who presented to the ED of 08/03/2024 with a chief complaint of abdominal pain and hematemesis. The patient states the abdominal pain started approximately 1 week prior to presentation. He describes his abdominal pain as a constant, diffuse, non-radiating, squeezing type pain. He notes the pain is worsened by PO intake, even in small quantities. He did endorse sonsuming 400 mg of Advil twice a day for the last 4-5 days. He also noted associated symptoms of progressive generalized weakness and fatigue. He noted on the morning of presentation, he began to experience hematemesis which was described as dark red blood. He also noted he had been having black stools for some time now although upon review of the patient's home medication's, ferrous sulfate is prescribed. Due to his symptoms not resolving, he presented to the ED. ED course: The patient's vitals on arrival were initially within normal limits except for a heart rate of 118. The patient reportedly vomited approximately 600 cc of bright red blood in the ED. The patient was immediately started on IV Protonix drip and octreotide drip, due to concern for variceal bleeding. Lab studies revealed a low hemoglobin/hematocrit of 4.6/17% respectively, a platelet count of 76 and a coagulopathy with an INR of 2.0. LFTs were notable for a elevated AST of 74 and alkaline phosphatase of 152 and a T. bili of 8.8. Patient was transfused with 2 units of PRBCs, 2 units FFP and a intramuscular dose of vitamin K. GI services were consulted who recommended the patient be admitted and requested an NG tube be placed on LIS with EGD planned in the morning. During this time, the patient became hypotensive with a MAP fluctating below and above 65. Due to the patient's critical status the patient was subsequently admitted to the ICU for continued management and the possible need for pressor support. 08/04/24: Patient seen and examined at bedside, has no current complaints, currently being transfused blood. NG tube was not placed, discussed with GI, no NG tube inserted this morning as patient was scheduled for EGD. Hemoglobin 5.7, will transfuse another unit of blood, platelets are more than 50, will not transfuse platelets. Hyperbilirubinemia noted, AST 53/ALT 16, discussed with patient hazards of alcohol use, patient verbalized understanding, currently no symptoms of withdrawal noted. Patient does report drinking beer on a daily basis. Patient got EGD later in the day, had findings of grade II esophageal varices noted in lower third of esophagus, 2 bands successfully placed, gastritis with hemorrhage noted, hemoglobin stable, 7.2. Otherwise will continue to monitor for withdrawal symptoms, otherwise scheduled for EGD today. Hemodynamically stable, mildly hypertensive, otherwise no complaints noted. Will continue to monitor patient's H&H every 12 hours and monitor patient closely. Exam Vital Signs Temp Pulse Resp BP Pulse Ox O2 Del Method 99.7 F 94 18 96/64 100 Room Air 08/04/24 07:44 08/04/24 07:44 08/04/24 07:44 08/04/24 07:44 08/04/24 07:30 08/04/24 02:00 Narrative Exam General: jaundiced, well nourished, sick appearing, alert and interactive HEENT: NC/AT, B/L scleral icterus, conjunctival pallor present, Lungs: Normal respiratory effort, no wheezing rhonchi or rales, CTAB CVS: Tachycardic, S1, loud S2, No murmurs, rubs or gallops ABD: non-distended, soft, diffuse tenderness to palpation most prominent in the LLQ EXT: No LE edema, radial pulses 2+, dorsalis pedis pulses 2+, warm well perfused, Neuro: GCS 15, alert and oriented, no gross focal neurological deficits Objective Labs 08/04/24 10:53 08/04/24 06:15 Labs: Laboratory Results - last 24 hr 08/03/24 08/04/24 08/04/24 21:57 00:50 06:15 WBC 8.9 7.2 RBC 2.55 L 2.46 L Hgb 4.6 L* Cancelled 5.4 L* Hct 17.0 L* Cancelled 17.6 L* MCV 67 L 72 L MCH 18.0 L 22.0 L MCHC 27.1 L 30.7 L RDW Std Deviation 63.8 H 69.9 H Plt Count 78 L 61 L D Neut % (Auto) 71 69 Lymph % (Auto) 12 14 Mcclain % (Auto) 15 H 14 H Eos % (Auto) 1 2 Baso % (Auto) 1 1 Neut # (Auto) 6.3 5.0 Lymph # (Auto) 1.0 1.0 Mcclain # (Auto) 1.3 H 1.0 H Eos # (Auto) 0.1 0.1 Baso # (Auto) 0.1 0.1 Immature Gran # (Auto) 0.04 H 0.03 H Absolute Nucleated RBC 0.09 H 0.05 H Immature Gran % 0 0 Nucleated RBC % 1 H 1 H Smear Path Review Sent to Pathologist PT 21.0 H 20.3 H INR 2.0 H 1.9 H APTT 34.2 40.0 H Sodium 130 L 131 L 132 L Potassium 3.4 3.8 3.5 Chloride 103 104 104 Carbon Dioxide 17.5 L 17.6 L 18.9 L Anion Gap 10 9 9 BUN 8 L 11 12 Creatinine 0.7 0.9 0.9 Estim Creat Clear Calc 124.6 96.9 96.9 eGFR > 60 > 60 > 60 BUN/Creatinine Ratio 11 L 12 13 Glucose 120 H 111 H 117 H Calculated Osmolality 260 L 263 L 265 L Lactic Acid 4.0 H 1.5 Calcium 6.8 L* 6.8 L* 6.8 L* Corrected Calcium 8.3 L 8.4 L 8.3 L Magnesium 1.3 L 1.6 Total Bilirubin 9.5 H 8.8 H D 10.8 H D AST 74 H 49 H 53 H ALT 19 14 16 Alkaline Phosphatase 152 H 138 H 119 H Troponin I < 0.002 Total Protein 7.2 6.6 6.2 Albumin 2.1 L 2.0 L 2.1 L Globulin 5.1 H 4.6 H 4.1 H Albumin/Globulin Ratio 0.4 L 0.4 L 0.5 L Triglycerides 135 126 Cholesterol 106 L 106 L LDL Cholesterol, Calc 74 76 HDL Cholesterol < 5 L < 5 L Cholesterol/HDL Ratio 21.0 H 21.0 H TSH 1.54 0.84 Misc Test Result Platelets confirmed Platelets confirmed Blood Type A Positive Antibody Screen NEGATIVE Crossmatch See Detail Blood Bank Wristband ID Yes Blood Bank Comment PLATP Ready Quality Measures Quality Measures none Assessment & Plan Assessment Current Active Medications: Generic Name Dose Route Start Last Admin Trade Name Freq PRN Reason Stop Dose Admin Octreotide Acetate 1,000 mcg/ 102 mls @ 5.1 mls/hr 08/03/24 21:47 08/03/24 22:01 Sodium Chloride IV 08/04/24 17:46 50 mcg/hr .Q20H ONE 5.1 mls/hr Administration Protocol 50 MCG/HR Ceftriaxone Sodium/Dextrose 50 mls @ 100 mls/hr 08/04/24 01:05 08/04/24 02:43 Rocephin/D5w 1gm Iv Premix IV 08/11/24 01:04 Infused DAILY@2100 CATHY Infusion Pantoprazole Sodium 80 mg in 100 mls @ 10 mls/hr 08/04/24 07:35 08/04/24 07:50 Protonix/Ns 80mg Iv Premix IV 08/07/24 05:34 10 mls/hr Q10H CATHY Administration Octreotide Acetate 1,000 mcg/ 102 mls @ 5.1 mls/hr 08/04/24 17:00 Sodium Chloride IV 08/09/24 16:59 .Q20H CATHY Protocol 50 MCG/HR Ondansetron HCl 4 mg 08/04/24 00:25 Ondansetron Inj 2 Mg/Ml Inj 2 Ml IV 09/03/24 00:24 Q6H PRN NAUSEA OR VOMITING Protocol Pharmacy Consult 1 each 08/04/24 09:00 Pharmacy Renal Dose Adjustment 1 Ea XX 09/03/24 08:59 QDAY PRN protocol Plan Assessment & Plan Neurological No active issues, Alert and oriented to person, place, time and situation. # Alcohol dependence Patient reports drinking alcohol on a daily basis, last drink on 08/03 night. Will continue to monitor for symptoms of withdrawal Plan: -CIWA protocol -Ativan as needed per CIWA protocol -Oral thiamine and folic acid -Referral to pediatric social worker Cardiology Currently the patient is hemodynamically stable with a MAP > 65. However due to borderline blood pressure in the setting of active bleeding and possible impending hemorrhagic shock, patient was admitted to ICU for possible need of pressor support. Pulmonary No active issues, saturating appropriately in ambient air. Gastrointestinal # Upper GI bleed secondary to # Esophageal varices status post banding # Status post EGD 08/04 Patient endorsed multiple episodes of melena and acute onset hematemesis with bright red blood prior to presentation. The patient does have a prior history of bleeding with endoscopy revealing variceal bleeding which was subsequently banded in 2022. Patient is known to have a long history of EtOH substance abuse with the development of cirrhosis and variceal bleeding. The source of the patient current bleeding is most likely to be variceal in etiology. Patient also endorse NSAID intake over the last several days. Hg/HCT: 4.6/17.0% on admission [place] = 12 points indicating a High Risk GI bleed that is likely to require medical intervention transfusion, endoscopy, or surgery. A higher GBS also correlated with a higher likelihood of needing intervention (scores greater than or equal to 6 are associated with >50% risk of needing intervention) Managment: -Status post EGD, two bands placed -Continue IV pantoprazole drip -Continue on octreotide gtt -Hold NSAIDs, steroids, ASA, chemical DVT PXP -Clear liquid diet, low-sodium will advance as tolerated in a.m. -Monitor H&H, transfuse PRBC if hemoglobin less than 7 #Cirrhosis 2/2 chronic EtOH substance use disorder, decompensated #Transaminitis #Ascites Patient with known history of longstanding EtOH substance abuse with cirrhosis as evidenced on CT-A/P. Physical exam notable for jaundice and scleral icterus. LFT: AST 49, ALT 14, Alkaline Phos. 138 - MELD-Na: 27 points - No evidence of Hepatic Encephalopathy on exam - Ascites as evidenced on CT A/P, however only a small amount - SBP PXP: ceftriaxone 1 gram QD - Esphageal Varices: octreotide gtt, Pantoprazle gtt Renal/Genitourinary Stable, BUN & Creatinine 11 and 0.9 respectively #Lactic Acidosis, resolved Lactic Acid: 4.0 IVF resusitation: NS at 75 cc/hr Endocrine Stable, no active issues, TSH within reference range Hemetology #Acute blood loss anemia #Acute on chronic microcytic anemia #Thrombocytopenia #Coagulopathy H/H on admission: 4.6/17.0%; MCV: 67, Platelets: 78 PT/INR: 21.0/ 2.0 DDX: acute blood loss, hemolysis, chronic inflammation leading to bone marrow supression in setting of chronic EtOH substance abuse Likely acute on chronic due to longstanding EtOH substance use disorder and acute GI bleed EGD 10/04/2022: Normal esophageal mucosa in mid and upper esophagus. Grade 1 esophageal varices in lower third of esophagus. There is an evidence of post banding ulcers in the lower third of esophagus with no evidence of recent bleeding and completely clean-based. Diffuse portal gastropathy. Infectious Disease No signs of active infection. Antibiotic regimen: Ceftiaxone 1 gram QD for SBP PXP Skin #Jaundice -In the setting of liver cirrhosis Fluids Electrolytes Nutrition: Clear liquid diet Analgesia: N/A Sedation: N/A Thromboprophylaxis: SCD's, no chemical pxp in setting of active GI bleed Head up position: N/A Ulcer prophylaxis: Pantoprazole GTT Glycemic control: N/A Spontaneous breathing trial: N/A Bowel regimen: None Indwelling catheter: N/A CODE STATUS: FULL CODE Disposition: Patient requires admission to ICU for close monitoring for possible rebleeding, will monitor and H&H. Case discussed with Attending Dr. Wyatt and Dr. Martinez PGY2. Ben Parks PGY1 Disclaimer: This note was dictated by speech recognition. Minor errors in derrickman helper may be present due to voice recognition software.
[2024-08-04 11:17] LABS: Basophils # (Auto) 0.1 Thou/mm3 (0.0-0.2); Basophils % (Auto) 2 % (0-2.5); Eosinophils # (Auto) 0.2 Thou/mm3 (0.0-0.5); Eosinophils % (Auto) 3 % (0-10); Hematocrit 22.8 % (41.0-53.0); Immature Granulocytes % (Auto) 1 % (0-0); Immature Granulocytes Auto 0.05 Thou/mm3 (0.00-0.00); Lymphocytes % (Auto) 15 % (10-50); Mean Corpuscular HGB Conc 31.6 g/dl (31.0-37.0); Mean Corpuscular Hemoglobin 23.4 pg (25.0-35.0); Mean Corpuscular Volume 74 fL (80-100); Monocytes # (Auto) 1.2 Thou/mm3 (0.0-0.8); Monocytes % (Auto) 17 % (0-12); Neutrophils # (Auto) 4.4 Thou/mm3 (1.8-7.7); Neutrophils % (Auto) 64 % (37-80); Nucleated Red Blood Cell # 0.07 Thou/mm3 (0.00-0.00); Nucleated Red Blood Cell % 1 /100 WBC (0); RDW Standard Deviation 65.5 fL (35.1-43.9); Red Blood Count 3.08 Miln/mm3 (4.50-5.90); White Blood Count 6.9 Thou/mm3 (3.8-10.6)
[2024-08-04 11:21] LABS: Hemoglobin 7.2 g/dL (13.5-16.0)
[2024-08-04 11:22] LABS: Platelet Count 67 Thou/mm3 (140-440)
[2024-08-04 11:46] LABS: Slide Review Platelets confirmed
[2024-08-04] MEDS: OCTREOTIDE ACET INJ 1,000 MCG in SODIUM CHLORIDE 0.9% 100 ML 5.1 MCG IV (17:41)
[2024-08-04 17:45] LABS: Basophils % (Auto) 1 % (0-2.5); Eosinophils # (Auto) 0.2 Thou/mm3 (0.0-0.5); Eosinophils % (Auto) 4 % (0-10); Immature Granulocytes % (Auto) 1 % (0-0); Immature Granulocytes Auto 0.03 Thou/mm3 (0.00-0.00); Lymphocytes # (Auto) 0.7 Thou/mm3 (1.0-4.8); Lymphocytes % (Auto) 11 % (10-50); Mean Corpuscular HGB Conc 31.8 g/dl (31.0-37.0); Mean Corpuscular Volume 72 fL (80-100); Monocytes # (Auto) 0.8 Thou/mm3 (0.0-0.8); Monocytes % (Auto) 14 % (0-12); Neutrophils # (Auto) 4.2 Thou/mm3 (1.8-7.7); Neutrophils % (Auto) 70 % (37-80); Nucleated Red Blood Cell # 0.06 Thou/mm3 (0.00-0.00); Nucleated Red Blood Cell % 1 /100 WBC (0); White Blood Count 5.9 Thou/mm3 (3.8-10.6)
[2024-08-04 17:49] LABS: Hematocrit 19.8 % (41.0-53.0)
[2024-08-04 18:10] LABS: Ammonia 85 uMol/L (11-32)
[2024-08-04 18:20] LABS: Hemoglobin 6.3 g/dL (13.5-16.0); Platelet Count 65 Thou/mm3 (140-440); Slide Review Platelets confirmed
[2024-08-04 18:21] LABS: Red Blood Count 2.74 Miln/mm3 (4.50-5.90)
[2024-08-04 22:02] LABS: Hematocrit 24.8 % (41.0-53.0)
[2024-08-04 22:03] LABS: Hemoglobin 7.8 g/dL (13.5-16.0)
[2024-08-05] VITALS (13 sets, daily range): BP systolic 99–118; BP diastolic 56–79; PULSE 77–99; RESP 15–23; TEMP 36.7–37.1; O2SAT 96–99; BMI 25.8
[2024-08-05] MEDS: PANTOPRAZOLE/NS 80MG IV PREMIX 80 MG/100 ML BAG 10 MG IV (03:43)
[2024-08-05 06:06] LABS: Basophils # (Auto) 0.1 Thou/mm3 (0.0-0.2); Basophils % (Auto) 2 % (0-2.5); Eosinophils # (Auto) 0.2 Thou/mm3 (0.0-0.5); Eosinophils % (Auto) 4 % (0-10); Immature Granulocytes % (Auto) 1 % (0-0); Immature Granulocytes Auto 0.03 Thou/mm3 (0.00-0.00); Lymphocytes # (Auto) 0.7 Thou/mm3 (1.0-4.8); Lymphocytes % (Auto) 13 % (10-50); Mean Corpuscular HGB Conc 32.1 g/dl (31.0-37.0); Mean Corpuscular Hemoglobin 23.8 pg (25.0-35.0); Mean Corpuscular Volume 74 fL (80-100); Monocytes # (Auto) 0.8 Thou/mm3 (0.0-0.8); Monocytes % (Auto) 15 % (0-12); Neutrophils # (Auto) 3.4 Thou/mm3 (1.8-7.7); Neutrophils % (Auto) 65 % (37-80); Nucleated Red Blood Cell # 0.05 Thou/mm3 (0.00-0.00); Nucleated Red Blood Cell % 1 /100 WBC (0); Platelet Count 74 Thou/mm3 (140-440); RDW Standard Deviation 61.6 fL (35.1-43.9); Red Blood Count 3.23 Miln/mm3 (4.50-5.90); White Blood Count 5.2 Thou/mm3 (3.8-10.6)
[2024-08-05 06:07] LABS: Hemoglobin 7.7 g/dL (13.5-16.0); Slide Review Platelets confirmed
[2024-08-05 06:18] LABS: INR 1.7 (0.9-1.3); Partial Thromboplastin Time 37.4 Seconds (22.0-36.0); Prothrombin Time 18.4 Seconds (9.0-12.2)
[2024-08-05 06:32] LABS: Alanine Aminotransferase 16 U/L (10-49); Albumin, Serum 2.1 gm/dL (3.5-5.0); Albumin/Globulin Ratio 0.5 (1.2-2.2); Alkaline Phosphatase 111 U/L (46-116); Anion Gap 8 (7-16); Aspartate Amino Transferase 72 U/L (0-34); BUN/Creatinine Ratio 11 Ratio (12-20); Bilirubin,Total 12.8 mg/dL (0.3-1.2); Blood Urea Nitrogen 9 mg/dL (9-23); Calcium 7.2 mg/dL (8.3-10.6); Calcium (Corrected) 8.7 mg/dL (8.5-10.1); Carbon Dioxide 20.4 mMol/L (20.0-31.0); Chloride 106 mMol/L (98-107); Creatinine (Component) 0.8 mg/dL (0.6-1.3); Globulin 4.2 gm/dL (2.3-3.5); Glucose 76 mg/dL (74-106); Magnesium 1.7 mg/dL (1.6-2.6); Osmolality,Calculated 265 (275-295); Phosphorous 1.8 mg/dL (2.4-5.1); Potassium 3.6 mMol/L (3.4-5.1); Sodium 134 mMol/L (136-145); Total Protein 6.3 gm/dL (5.7-8.2); eGFR > 60 See Note
[2024-08-05] MEDS: THIAMINE 100 MG TABLET PO ×2 (08:02→20:13)
[2024-08-05] MEDS: FOLIC ACID 1 MG TABLET PO ×2 (08:02→20:13)
--- NOTE | 2024-08-05 11:28 | ESPR_ITS ---
<Statement entered by Payton Alan DO - 08/05/24 20:34> Senior attestation: Patient was examined and case was reviewed with team including attending physician. Note reviewed, I agree with most of its contents and agree with the patient's care. Patient examined bedside, no overnight events reported, no signs of active alcohol withdrawal or GI bleed at this time. EGD has been completed, 5-day octreotide course advised by GI Dr. Orozco. Patient in stable condition for downgrade to medical floors for 08/06. Payton Alan DO PGY-3 Documentation for date of: 08/05/24 Subjective Subjective Interval history: Mr. Bakari Moore is a 44 year old gentleman with a past medical history of EtOH abuse, alcoholic cirrhosis, status post variceal banding from a GI bleed (09-21-2022) who presented to the ED of 08/03/2024 with a chief complaint of abdominal pain and hematemesis. The patient states the abdominal pain started approximately 1 week prior to presentation. He describes his abdominal pain as a constant, diffuse, non-radiating, squeezing type pain. He notes the pain is worsened by PO intake, even in small quantities. He did endorse sonsuming 400 mg of Advil twice a day for the last 4-5 days. He also noted associated symptoms of progressive generalized weakness and fatigue. He noted on the morning of presentation, he began to experience hematemesis which was described as dark red blood. He also noted he had been having black stools for some time now although upon review of the patient's home medication's, ferrous sulfate is prescribed. Due to his symptoms not resolving, he presented to the ED. ED course: The patient's vitals on arrival were initially within normal limits except for a heart rate of 118. The patient reportedly vomited approximately 600 cc of bright red blood in the ED. The patient was immediately started on IV Protonix drip and octreotide drip, due to concern for variceal bleeding. Lab studies revealed a low hemoglobin/hematocrit of 4.6/17% respectively, a platelet count of 76 and a coagulopathy with an INR of 2.0. LFTs were notable for a elevated AST of 74 and alkaline phosphatase of 152 and a T. bili of 8.8. Patient was transfused with 2 units of PRBCs, 2 units FFP and a intramuscular dose of vitamin K. GI services were consulted who recommended the patient be admitted and requested an NG tube be placed on LIS with EGD planned in the morning. During this time, the patient became hypotensive with a MAP fluctating below and above 65. Due to the patient's critical status the patient was subsequently admitted to the ICU for continued management and the possible need for pressor support. 08/04/24: Patient seen and examined at bedside, has no current complaints, currently being transfused blood. NG tube was not placed, discussed with GI, no NG tube inserted this morning as patient was scheduled for EGD. Hemoglobin 5.7, will transfuse another unit of blood, platelets are more than 50, will not transfuse platelets. Hyperbilirubinemia noted, AST 53/ALT 16, discussed with patient hazards of alcohol use, patient verbalized understanding, currently no symptoms of withdrawal noted. Patient does report drinking beer on a daily basis. Patient got EGD later in the day, had findings of grade II esophageal varices noted in lower third of esophagus, 2 bands successfully placed, gastritis with hemorrhage noted, hemoglobin stable, 7.2. Otherwise will continue to monitor for withdrawal symptoms, otherwise scheduled for EGD today. Hemodynamically stable, mildly hypertensive, otherwise no complaints noted. Will continue to monitor patient's H&H every 12 hours and monitor patient closely. 08/05/24: Patient seen and examined at bedside, no overnight events and no signs of alcohol withdrawal, H&H has been stable, no signs of active bleeding, platelets stable, we will continue to treat patient with IV octreotide and IV Protonix for 5 days, patient stable to be downgraded to floors starting tomorrow to complete octreotide and Protonix treatment. Hospitalist team will resume care in a.m. Consider discharging patient on lactulose p.o., Lasix/spironolactone for ascites, and if patient tolerates propranolol for GI bleeding prophylaxis, recommend low-sodium diet outpatient. Complete SBP prophylaxis with antibiotic therapy for 7 days, consider p.o. antibiotic on discharge. Exam Vital Signs Temp Pulse Resp BP Pulse Ox O2 Del Method O2 Flow Rate 98.8 F 77 16 108/77 99 Room Air 3 08/05/24 04:00 08/05/24 09:00 08/05/24 09:00 08/05/24 09:00 08/05/24 09:00 08/05/24 09:00 08/04/24 11:40 Narrative Exam General: jaundiced, well nourished, sick appearing, alert and interactive HEENT: NC/AT, B/L scleral icterus, conjunctival pallor present, Lungs: Normal respiratory effort, no wheezing rhonchi or rales, CTAB CVS: Tachycardic, S1, loud S2, No murmurs, rubs or gallops ABD: non-distended, soft, diffuse tenderness to palpation most prominent in the LLQ EXT: No LE edema, radial pulses 2+, dorsalis pedis pulses 2+, warm well perfused, Neuro: GCS 15, alert and oriented, no gross focal neurological deficits Objective Labs 08/05/24 05:09 08/05/24 05:09 Labs: Laboratory Results - last 24 hr 08/03/24 08/04/24 08/04/24 21:57 10:53 17:33 WBC 5.9 RBC 2.74 L Hgb 6.3 L* Hct 19.8 L* MCV 72 L MCH 23.0 L MCHC 31.8 RDW Std Deviation 64.0 H Plt Count 65 L Neut % (Auto) 70 Lymph % (Auto) 11 [place] % (Auto) 14 H Eos % (Auto) 4 Baso % (Auto) 1 Neut # (Auto) 4.2 Lymph # (Auto) 0.7 L [place] # (Auto) 0.8 Eos # (Auto) 0.2 Baso # (Auto) 0.0 Immature Gran # (Auto) 0.03 H Absolute Nucleated RBC 0.06 H Immature Gran % 1 H Nucleated RBC % 1 H PT INR APTT Sodium Potassium Chloride Carbon Dioxide Anion Gap BUN Creatinine Estim Creat Clear Calc eGFR BUN/Creatinine Ratio Glucose Calculated Osmolality Calcium Corrected Calcium Phosphorus Magnesium Total Bilirubin AST ALT Alkaline Phosphatase Ammonia 85 H* Total Protein Albumin Globulin Albumin/Globulin Ratio Misc Test Result Platelets confirmed Platelets confirmed Blood Type A Positive Antibody Screen NEGATIVE Crossmatch See Detail Blood Bank Wristband ID Yes Blood Bank Comment PLATP Ready 08/04/24 08/05/24 21:05 05:09 WBC 5.2 RBC 3.23 L Hgb 7.8 L D 7.7 L Hct 24.8 L 24.0 L MCV 74 L MCH 23.8 L MCHC 32.1 RDW Std Deviation 61.6 H Plt Count 74 L Neut % (Auto) 65 Lymph % (Auto) 13 [place] % (Auto) 15 H Eos % (Auto) 4 Baso % (Auto) 2 Neut # (Auto) 3.4 Lymph # (Auto) 0.7 L [place] # (Auto) 0.8 Eos # (Auto) 0.2 Baso # (Auto) 0.1 Immature Gran # (Auto) 0.03 H Absolute Nucleated RBC 0.05 H Immature Gran % 1 H Nucleated RBC % 1 H PT 18.4 H INR 1.7 H APTT 37.4 H Sodium 134 L Potassium 3.6 Chloride 106 Carbon Dioxide 20.4 Anion Gap 8 BUN 9 Creatinine 0.8 Estim Creat Clear Calc 109.0 eGFR > 60 BUN/Creatinine Ratio 11 L Glucose 76 Calculated Osmolality 265 L Calcium 7.2 L Corrected Calcium 8.7 Phosphorus 1.8 L Magnesium 1.7 Total Bilirubin 12.8 H D AST 72 H ALT 16 Alkaline Phosphatase 111 Ammonia Total Protein 6.3 Albumin 2.1 L Globulin 4.2 H Albumin/Globulin Ratio 0.5 L Misc Test Result Platelets confirmed Blood Type Antibody Screen Crossmatch Blood Bank Wristband ID Blood Bank Comment Quality Measures Quality Measures none Assessment & Plan Assessment Current Active Medications: Generic Name Dose Route Start Last Admin Trade Name Freq PRN Reason Stop Dose Admin Folic Acid 1 mg 08/05/24 09:00 08/05/24 08:02 Folic Acid 1 Mg Tablet PO 08/10/24 08:59 1 mg BID CATHY Administration Ceftriaxone Sodium/Dextrose 50 mls @ 100 mls/hr 08/04/24 01:05 08/04/24 21:27 Rocephin/D5w 1gm Iv Premix IV 08/11/24 01:04 Infused DAILY@2100 CATHY Infusion Octreotide Acetate 1,000 mcg/ 102 mls @ 5.1 mls/hr 08/04/24 17:00 08/04/24 17:41 Sodium Chloride IV 08/09/24 16:59 50 mcg/hr .Q20H CATHY 5.1 mls/hr Administration Protocol 50 MCG/HR Lorazepam 0.5 mg 08/04/24 15:23 Lorazepam 0.5 Mg Tablet PO 08/09/24 15:22 Q4HR PRN CIWA Score 2-6 Lorazepam 1 mg 08/04/24 15:23 Lorazepam 0.5 Mg Tablet PO 08/09/24 15:22 Q4HR PRN CIWA SCORE 7-11 Lorazepam 2 mg 08/04/24 15:23 Lorazepam 0.5 Mg Tablet PO 08/09/24 15:22 Q4HR PRN CIWA SCORE 12-15 Lorazepam 1 mg 08/04/24 15:23 Lorazepam 2 Mg/Ml Vial IV X1 PRN Breakthrough Agitation Ondansetron HCl 4 mg 08/04/24 00:25 Ondansetron Inj 2 Mg/Ml Inj 2 Ml IV 09/03/24 00:24 Q6H PRN NAUSEA OR VOMITING Protocol Pharmacy Consult 1 each 08/04/24 09:00 Pharmacy Renal Dose Adjustment 1 Ea XX 09/03/24 08:59 QDAY PRN protocol Thiamine HCl 100 mg 08/05/24 09:00 08/05/24 08:02 Thiamine 100 Mg Tablet PO 08/10/24 08:59 100 mg BID CATHY Administration Plan Assessment & Plan Neurological No active issues, Alert and oriented to person, place, time and situation. # Alcohol dependence Patient reports drinking alcohol on a daily basis, last drink on 08/03 night. Will continue to monitor for symptoms of withdrawal Plan: -CIWA protocol -Ativan as needed per [facility] protocol -Oral thiamine and folic acid -Referral to foster care social worker -Recommend following with Alcoholics Anonymous on discharge, avoid alcohol use. -Follow-up with PCP for possibly obtaining pharmacological options to stain from alcohol Cardiology Currently the patient is hemodynamically stable with a MAP > 65. However due to borderline blood pressure in the setting of active bleeding and possible impending hemorrhagic shock, patient was admitted to ICU for possible need of pressor support. Pulmonary No active issues, saturating appropriately in ambient air. Gastrointestinal # Upper GI bleed secondary to # Esophageal varices status post banding # Status post EGD 08/04 Patient endorsed multiple episodes of melena and acute onset hematemesis with bright red blood prior to presentation. The patient does have a prior history of bleeding with endoscopy revealing variceal bleeding which was subsequently banded in 2022. Patient is known to have a long history of EtOH substance abuse with the development of cirrhosis and variceal bleeding. The source of the patient current bleeding is most likely to be variceal in etiology. Patient also endorse NSAID intake over the last several days. Hg/HCT: 4.6/17.0% on admission Finesse-[place] = 12 points indicating a High Risk GI bleed that is likely to require medical intervention transfusion, endoscopy, or surgery. A higher GBS also correlated with a higher likelihood of needing intervention (scores greater than or equal to 6 are associated with >50% risk of needing intervention) Managment: -Status post EGD, two bands placed -Continue IV pantoprazole -Continue on octreotide gtt -Hold NSAIDs, steroids, ASA, chemical DVT PXP -Clear liquid diet, low-sodium will advance as tolerated in a.m. -Monitor H&H, transfuse PRBC if hemoglobin less than 7 #Cirrhosis 2/2 chronic EtOH substance use disorder, decompensated #Transaminitis #Ascites Patient with known history of longstanding EtOH substance abuse with cirrhosis as evidenced on CT-A/P. Physical exam notable for jaundice and scleral icterus. LFT: AST 49, ALT 14, Alkaline Phos. 138 - MELD-Na: 27 points - No evidence of Hepatic Encephalopathy on exam - Ascites as evidenced on CT A/P, however only a small amount - SBP PXP: ceftriaxone 1 gram QD - Esophageal Varices: octreotide gtt, Pantoprazle gtt Renal/Genitourinary Stable, BUN & Creatinine 11 and 0.9 respectively #Lactic Acidosis, resolved Lactic Acid: 4.0 IVF resusitation: NS at 75 cc/hr Endocrine Stable, no active issues, TSH within reference range Hemetology #Acute blood loss anemia #Acute on chronic microcytic anemia #Thrombocytopenia #Coagulopathy H/H on admission: 4.6/17.0%; MCV: 67, Platelets: 78 PT/INR: 21.0/ 2.0 DDX: acute blood loss, hemolysis, chronic inflammation leading to bone marrow supression in setting of chronic EtOH substance abuse Likely acute on chronic due to longstanding EtOH substance use disorder and acute GI bleed EGD 10/04/2022: Normal esophageal mucosa in mid and upper esophagus. Grade 1 esophageal varices in lower third of esophagus. There is an evidence of post banding ulcers in the lower third of esophagus with no evidence of recent bleeding and completely clean-based. Diffuse portal gastropathy. Infectious Disease No signs of active infection. Antibiotic regimen: Ceftiaxone 1 gram QD for SBP PXP Skin #Jaundice -In the setting of liver cirrhosis Fluids Electrolytes Nutrition: Clear liquid diet, low-sodium Analgesia: N/A Sedation: N/A Thromboprophylaxis: SCD's, no chemical pxp in setting of active GI bleed Head up position: N/A Ulcer prophylaxis: IV Protonix Glycemic control: N/A Spontaneous breathing trial: N/A Bowel regimen: None Indwelling catheter: N/A CODE STATUS: FULL CODE Disposition: Patient requires admission to ICU for close monitoring for possible rebleeding, will monitor and H&H. Case discussed with Attending Dr. Chairez and Dr. Alan PGY3. Ben Parks PGY1 Disclaimer: This note was dictated by speech recognition. Minor errors in structural fitter may be present due to voice recognition software. Attending Provider Attestation/Addendum Patient seen and examined with resident. Agree with above. In brief this is a 44-year-old gentleman with a history of alcohol abuse and cirrhosis who presented to the ER with a GI bleed. He underwent an EGD with banding of varices. He was transfused PRBCs. He is currently hemodynamically stable. He is awake alert and oriented. He is participating with physical exam. He is tolerating a p.o. diet. He appears stable for downgrade Case discussed with ICU team Labs, imaging and records reviewed Approximately 35 minutes required for eval, exam, review, intervention, discussion and formulation of plan of care for this acutely ill patient with GI bleed.
--- NOTE | 2024-08-05 11:36 | PD.RESEVENT ---
Documentation for date of: 08/05/24 Event Note Event Note: Signout received from ICU team In summary this is a 44-year-old male with past medical history of alcohol abuse, alcoholic cirrhosis, status post variceal banding from a GI bleed (09-21-2022) who presented to the ED of 08/03/2024 with a chief complaint of abdominal pain and hematemesis. As patient was actively bleeding and requiring transfusions was admitted to the ICU for concern of shock and possible need of pressors. During ICU stay patient did not require pressors however did require multiple transfusions. GI was consulted had EGD done was found to have esophageal varices grade 2 which were banded, gastritis with hemorrhage. At this time GI recommended completing octreotide drip for 5 days. At this time patient is downgraded to the floors. Hospitalist team made aware and will resume care 08/06/2024. Case discussed with my attending Dr. Martínez Sheets MD PGY-1
[2024-08-05] MEDS: OCTREOTIDE ACET INJ 1,000 MCG in SODIUM CHLORIDE 0.9% 100 ML 5.1 MCG IV (12:00)
--- NOTE | 2024-08-05 20:03 | ESPR_ITS ---
Documentation for date of: 08/05/24 Subjective Subjective Interval history: Patient evaluated hemoglobin hematocrit 7.7 and 24.0 Patient had undergone upper endoscopy with banding of the esophageal varices 2 bands were put on Exam Vital Signs Temp Pulse Resp BP Pulse Ox O2 Del Method O2 Flow Rate 98.4 F 78 17 103/70 98 Room Air 3 08/05/24 16:00 08/05/24 16:00 08/05/24 16:00 08/05/24 16:00 08/05/24 16:00 08/05/24 16:00 08/04/24 11:40 Objective Labs 08/05/24 05:09 08/05/24 05:09 Labs: Laboratory Results - last 24 hr 08/03/24 08/04/24 08/05/24 21:57 21:05 05:09 WBC 5.2 RBC 3.23 L Hgb 7.8 L D 7.7 L Hct 24.8 L 24.0 L MCV 74 L MCH 23.8 L MCHC 32.1 RDW Std Deviation 61.6 H Plt Count 74 L Neut % (Auto) 65 Lymph % (Auto) 13 [place] % (Auto) 15 H Eos % (Auto) 4 Baso % (Auto) 2 Neut # (Auto) 3.4 Lymph # (Auto) 0.7 L [place] # (Auto) 0.8 Eos # (Auto) 0.2 Baso # (Auto) 0.1 Immature Gran # (Auto) 0.03 H Absolute Nucleated RBC 0.05 H Immature Gran % 1 H Nucleated RBC % 1 H PT 18.4 H INR 1.7 H APTT 37.4 H Sodium 134 L Potassium 3.6 Chloride 106 Carbon Dioxide 20.4 Anion Gap 8 BUN 9 Creatinine 0.8 Estim Creat Clear Calc 109.0 eGFR > 60 BUN/Creatinine Ratio 11 L Glucose 76 Calculated Osmolality 265 L Calcium 7.2 L Corrected Calcium 8.7 Phosphorus 1.8 L Magnesium 1.7 Total Bilirubin 12.8 H D AST 72 H ALT 16 Alkaline Phosphatase 111 Total Protein 6.3 Albumin 2.1 L Globulin 4.2 H Albumin/Globulin Ratio 0.5 L Misc Test Result Platelets confirmed Blood Type A Positive Antibody Screen NEGATIVE Crossmatch See Detail Blood Bank Wristband ID Yes Blood Bank Comment PLATP Ready Impressions Impression: # Chronic liver disease secondary to alcohol # esophageal varices requiring band ligation Continue current management Assessment & Plan A&P Narrative # Melena # Hematemesis in the setting of cirrhotic liver disease due to alcohol most likely source of bleeding is esophageal variceal bleed or hypertensive portal gastropathy leading to mucosal oozing of blood # Thrombocytopenia # Coagulopathy Plan Agree with the current management with octreotide infusion as well as IV Protonix and blood transfusion Serial CBC N.p.o. Consent obtained for fiberoptic esophagogastroduodenoscopy with possible therapeutic intervention under intravenous moderate sedation Thank you once again for the opportunity to participate in the care of this patient Time Spent With Patient Time: Total time spent is greater than 50% in coordination of care (as documented) at patient's floor/unit and/or counseling patient:
[2024-08-05] MEDS: PANTOPRAZOLE INJ 40 MG VIAL IVP (20:13)
[2024-08-05] MEDS: cefTRIAXone/D5w 1gm IV premix 50 ML IV (20:13)
[2024-08-06] VITALS (17 sets, daily range): BP systolic 91–109; BP diastolic 58–73; PULSE 78–94; RESP 13–20; TEMP 35.7–36.9; O2SAT 96–100; BMI 26.2; BMI 26.3
[2024-08-06 06:12] LABS: Basophils # (Auto) 0.1 Thou/mm3 (0.0-0.2); Basophils % (Auto) 1 % (0-2.5); Eosinophils # (Auto) 0.2 Thou/mm3 (0.0-0.5); Eosinophils % (Auto) 3 % (0-10); Immature Granulocytes % (Auto) 1 % (0-0); Immature Granulocytes Auto 0.05 Thou/mm3 (0.00-0.00); Lymphocytes # (Auto) 0.9 Thou/mm3 (1.0-4.8); Lymphocytes % (Auto) 14 % (10-50); Mean Corpuscular HGB Conc 31.1 g/dl (31.0-37.0); Mean Corpuscular Hemoglobin 23.4 pg (25.0-35.0); Mean Corpuscular Volume 75 fL (80-100); Monocytes # (Auto) 1.1 Thou/mm3 (0.0-0.8); Monocytes % (Auto) 17 % (0-12); Neutrophils % (Auto) 64 % (37-80); Nucleated Red Blood Cell # 0.02 Thou/mm3 (0.00-0.00); Nucleated Red Blood Cell % 0 /100 WBC (0); Platelet Count 76 Thou/mm3 (140-440); RDW Standard Deviation 65.9 fL (35.1-43.9); Red Blood Count 2.14 Miln/mm3 (4.50-5.90); White Blood Count 6.2 Thou/mm3 (3.8-10.6)
[2024-08-06 06:22] LABS: Hematocrit 16.1 % (41.0-53.0)
[2024-08-06 06:29] LABS: INR 2.1 (0.9-1.3); Partial Thromboplastin Time 39.9 Seconds (22.0-36.0); Prothrombin Time 21.4 Seconds (9.0-12.2)
[2024-08-06 06:30] LABS: Slide Review Platelets confirmed
[2024-08-06 06:57] LABS: Alanine Aminotransferase 16 U/L (10-49); Albumin, Serum 1.7 gm/dL (3.5-5.0); Albumin/Globulin Ratio 0.5 (1.2-2.2); Alkaline Phosphatase 88 U/L (46-116); Anion Gap 6 (7-16); Aspartate Amino Transferase 58 U/L (0-34); BUN/Creatinine Ratio 17 Ratio (12-20); Bilirubin,Total 12.1 mg/dL (0.3-1.2); Blood Urea Nitrogen 12 mg/dL (9-23); Calcium (Corrected) 8.6 mg/dL (8.5-10.1); Carbon Dioxide 21.5 mMol/L (20.0-31.0); Chloride 105 mMol/L (98-107); Creatinine (Component) 0.7 mg/dL (0.6-1.3); Estimated Creatinine Clearance 124.6 mL/min (>60); Globulin 3.5 gm/dL (2.3-3.5); Glucose 110 mg/dL (74-106); Magnesium 1.4 mg/dL (1.6-2.6); Osmolality,Calculated 265 (275-295); Phosphorous 1.8 mg/dL (2.4-5.1); Potassium 4.6 mMol/L (3.4-5.1); Sodium 132 mMol/L (136-145); Total Protein 5.2 gm/dL (5.7-8.2); eGFR > 60 See Note
[2024-08-06 07:11] LABS: Calcium 6.8 mg/dL (8.3-10.6)
[2024-08-06 07:56] LABS: Hematocrit 17.7 % (41.0-53.0); Hemoglobin 5.4 g/dL (13.5-16.0)
[2024-08-06] MEDS: OCTREOTIDE ACET INJ 1,000 MCG in SODIUM CHLORIDE 0.9% 100 ML 5.1 MCG IV (08:20)
[2024-08-06] MEDS: Magnesium Sulfate 4 GM Ivpb 4 GM/50 ML BAG IV (08:23)
[2024-08-06] MEDS: NAPH,KPH MBDB 1 PACKET (1.5 GM) PO (08:24)
[2024-08-06] MEDS: FOLIC ACID 1 MG TABLET PO ×2 (08:24→20:09)
[2024-08-06] MEDS: THIAMINE 100 MG TABLET PO ×2 (08:24→20:09)
[2024-08-06] MEDS: PANTOPRAZOLE INJ 40 MG VIAL IVP ×2 (08:25→20:09)
[2024-08-06] MEDS: LACTULOSE SYRUP 20 GM/30 ML UDC PO (11:21)
--- NOTE | 2024-08-06 12:14 | PD.RESPRO ---
Documentation for date of: 08/06/24 Senior resident attestation: Patient is a 44-year-old male with a past medical history of cirrhosis secondary to alcohol abuse, who presented with hematemesis and abdominal pain, gastroenterology was consulted, Dr. Orozco performed EGD, GI bleed likely variceal status post EV BL of grade 2 varices during this hospitalization. #Esophageal variceal bleed s/p banding?on octreotide gtt. and pantoprazole 40 mg twice daily, status post EGD, Blatchford score 12 points, hemoglobin 4.6 on admission received blood transfusions, repeat hemoglobin more than 7, noted acute drop in hemoglobin This a.m., hemoglobin 5.4, ordered 2 PRBC, 1 FFP transfusion, 2 RBC on hold. Unfortunately we had no gastroenterology coverage today, will attempt to reach elderly caregiver tomorrow if continued downtrend in hemoglobin for possible repeat EGD, concern for band slippage. #Decompensated alcoholic cirrhosis #Acute alcoholic hepatitis?Maddrey's discriminant function score 50, INR more than 2, bilirubin more than 12, will start patient on IV methylprednisone 40 mg daily, as patient is already on GI prophylaxis and EGD showed no gastric ulcers. #Alcohol abuse disorder?on CIWA protocol, received oral thiamine and folic acid. #Acute blood loss anemia?in the setting of variceal bleed, blood transfusions as required keep hemoglobin more than 7. #Thrombocytopenia Patient evaluated and examined at the bedside, plan of care discussed with rest of the team including my attending physician, except as noted. Quresh PGY2 Subjective Subjective Interval history: Patient seen today at the bedside fine awake, alert, oriented x 3. No overnight events reported. Hemodynamically stable at this time. Labs significant for hemoglobin of 5 for which will transfuse 2 PRBCs, 1 FFP. Ordered an additional 2 PRBCs and 1 platelets, will follow-up posttransfusion H&H. Patient has not had a bowel movement since August 04 started patient on lactulose 20 mg 3 times daily. After which patient had 2 episodes of black stools. IV Solu-Medrol ordered. GI specialist Dr. Orozco consulted, appreciate recommendations. Exam Vital Signs Temp Pulse Resp BP Pulse Ox O2 Del Method O2 Flow Rate 98.4 F 88 17 104/62 97 Room Air 3 08/06/24 11:50 08/06/24 11:50 08/06/24 11:50 08/06/24 11:50 08/06/24 11:50 08/06/24 08:00 08/04/24 11:40 Narrative Exam Physical Exam GENERAL: NAD, AAOx3, whole-body jaundice HEENT: Moist mucosa. Scleral icterus CARDIO: Heart RRR, no obvious murmurs PULM: No noted coughing/dyspnea CTA B/L, no R/W/R GI: Abdomen soft, distended, no pain on palpation. BSx4 SKIN/MSK/EXT: no pain on palpation. Pedal pulses present B/L NEURO: AAOx3, no focal neuro deficits, able to move all 4 extremities Objective Labs 08/07/24 05:32 08/07/24 05:32 Labs: Laboratory Results - last 24 hr 08/03/24 08/06/24 08/06/24 21:57 05:07 07:32 WBC 6.2 RBC 2.14 L Hgb 5.0 L* D 5.4 L* Hct 16.1 L* 17.7 L* MCV 75 L MCH 23.4 L MCHC 31.1 RDW Std Deviation 65.9 H Plt Count 76 L Neut % (Auto) 64 Lymph % (Auto) 14 Garrard % (Auto) 17 H Eos % (Auto) 3 Baso % (Auto) 1 Neut # (Auto) 4.0 Lymph # (Auto) 0.9 L Garrard # (Auto) 1.1 H Eos # (Auto) 0.2 Baso # (Auto) 0.1 Immature Gran # (Auto) 0.05 H Absolute Nucleated RBC 0.02 H Immature Gran % 1 H Nucleated RBC % 0 PT 21.4 H D INR 2.1 H APTT 39.9 H Sodium 132 L Potassium 4.6 D Chloride 105 Carbon Dioxide 21.5 Anion Gap 6 L BUN 12 Creatinine 0.7 Estim Creat Clear Calc 124.6 eGFR > 60 BUN/Creatinine Ratio 17 Glucose 110 H Calculated Osmolality 265 L Calcium 6.8 L* Corrected Calcium 8.6 Phosphorus 1.8 L Magnesium 1.4 L Total Bilirubin 12.1 H D AST 58 H ALT 16 Alkaline Phosphatase 88 D Total Protein 5.2 L Albumin 1.7 L Globulin 3.5 Albumin/Globulin Ratio 0.5 L Misc Test Result Platelets confirmed Blood Type A Positive A Positive Antibody Screen NEGATIVE NEGATIVE Crossmatch See Detail See Detail Blood Bank Wristband ID Yes Yes Blood Bank Comment PLATP Ready FFP Ready Quality Measures Quality Measures none Assessment & Plan Assessment Current Active Medications: Generic Name Dose Route Start Last Admin Trade Name Cathleen PRN Reason Stop Dose Admin Folic Acid 1 mg 08/05/24 09:00 08/06/24 08:24 Folic Acid 1 Mg Tablet PO 08/10/24 08:59 1 mg BID CATHY Administration Ceftriaxone Sodium/Dextrose 50 mls @ 100 mls/hr 08/04/24 01:05 08/05/24 20:13 Rocephin/D5w 1gm Iv Premix IV 08/11/24 01:04 100 mls/hr DAILY@2100 CATHY Administration Octreotide Acetate 1,000 mcg/ 102 mls @ 5.1 mls/hr 08/04/24 17:00 08/06/24 08:20 Sodium Chloride IV 08/09/24 16:59 50 mcg/hr .Q20H CATHY 5.1 mls/hr Administration Protocol 50 MCG/HR Magnesium Sulfate 2 gm in 50 mls @ 25 mls/hr 08/06/24 12:00 Magnesium Sulfate Ivpb IV 08/06/24 13:59 X1 ONE Lactulose 20 gm 08/06/24 09:30 08/06/24 11:21 Lactulose Syrup 20 Gm/30 Ml Udc PO 09/05/24 09:29 20 gm TID CATHY Administration Protocol Lorazepam 0.5 mg 08/04/24 15:23 Lorazepam 0.5 Mg Tablet PO 08/09/24 15:22 Q4HR PRN CIWA Score 2-6 Lorazepam 1 mg 08/04/24 15:23 Lorazepam 0.5 Mg Tablet PO 08/09/24 15:22 Q4HR PRN CIWA SCORE 7-11 Lorazepam 2 mg 08/04/24 15:23 Lorazepam 0.5 Mg Tablet PO 08/09/24 15:22 Q4HR PRN CIWA SCORE 12-15 Lorazepam 1 mg 08/04/24 15:23 Lorazepam 2 Mg/Ml Vial IV X1 PRN Breakthrough Agitation Methylprednisolone Sodium Succinate 40 mg 08/06/24 10:15 08/06/24 12:07 Methylprednisolone Sod Succ 40 Mg Vial IVP 08/13/24 10:14 40 mg QDAY CATHY Administration Ondansetron HCl 4 mg 08/04/24 00:25 Ondansetron Inj 2 Mg/Ml Inj 2 Ml IV 09/03/24 00:24 Q6H PRN NAUSEA OR VOMITING Protocol Pantoprazole Sodium 40 mg 08/05/24 21:00 08/06/24 08:25 Pantoprazole Inj 40 Mg Vial IVP 09/04/24 20:59 40 mg BID CATHY Administration Pharmacy Consult 1 each 08/04/24 09:00 Pharmacy Renal Dose Adjustment 1 Ea XX 09/03/24 08:59 QDAY PRN protocol Thiamine HCl 100 mg 08/05/24 09:00 08/06/24 08:24 Thiamine 100 Mg Tablet PO 08/10/24 08:59 100 mg BID CATHY Administration Plan 44-year-old male with past medical history of alcohol abuse, alcoholic cirrhosis, status post variceal banding from a GI bleed (09-21-2022) who presented to the ED of 08/03/2024 with a chief complaint of abdominal pain and hematemesis. As patient was actively bleeding and requiring transfusions was admitted to the ICU for concern of shock and possible need of pressors. During ICU stay patient did not require pressors however did require multiple transfusions. GI was consulted had EGD done was found to have esophageal varices grade 2 which were banded, gastritis with hemorrhage. At this time GI recommended completing octreotide drip for 5 days. At this time patient is downgraded to the floors. # Upper GI bleed secondary to # Esophageal varices status post banding # Status post EGD 08/04 with banding Patient endorsed multiple episodes of melena and acute onset hematemesis with bright red blood prior to presentation. The patient does have a prior history of bleeding with endoscopy revealing variceal bleeding which was subsequently banded in 2022. Patient is known to have a long history of EtOH substance abuse with the development of cirrhosis and variceal bleeding. The source of the patient current bleeding is most likely to be variceal in etiology. Patient also endorse NSAID intake over the last several days. Hg/HCT: 4.6/17.0% on admission Jackson-Blatchford = 12 points indicating a High Risk GI bleed that is likely to require medical intervention transfusion, endoscopy, or surgery. A higher GBS also correlated with a higher likelihood of needing intervention (scores greater than or equal to 6 are associated with >50% risk of needing intervention) Current hemoglobin of 5, will transfuse 2 PRBCs 1 FFP at this time ordered more units in case of further need of transfusion Patient today had 2 black stools -Transfused 2 PRBCs, 1 FFP -Ordered 2 more PRBCs, will transfuse if needed -Continue IV pantoprazole 40 mg twice daily -Continue on octreotide drip -On IV methylprednisolone 40 mg daily -Monitor H&H, transfuse PRBC if hemoglobin less than 7 - GI, Dr. Orozco consulted, appreciate recommendations #Cirrhosis secondary to chronic decompensated alcohol use disorder #Transaminitis #Ascites #Jaundice/scleral icterus Patient with known history of longstanding EtOH substance abuse with cirrhosis as evidenced on CT-A/P. Physical exam notable for jaundice and scleral icterus. LFT: AST 49, ALT 14, Alkaline Phos. 138 MELD-score: 27 points No evidence of Hepatic Encephalopathy on exam Ascites as evidenced on CT A/P, however only a small amount - on ceftriaxone for SBP prophylaxis -Lactulose 20 mg 3 times daily # Alcohol dependence Patient reports drinking alcohol on a daily basis, last drink on 08/03 night. Will continue to monitor for symptoms of withdrawal Patient drinks beer and about a bottle of liquor every day, last drink August 03 -[facility] protocol -Ativan as needed per [facility] protocol -Oral thiamine and folic acid -Referral to director of social media marketing -Recommend following with Alcoholics Anonymous on discharge, avoid alcohol use. -Follow-up with PCP for possibly obtaining pharmacological options to stain from alcohol #Acute blood loss anemia #Acute on chronic microcytic anemia #Thrombocytopenia #Coagulopathy H/H on admission: 4.6/17.0%; MCV: 67, Platelets: 78 PT/INR: 21.0/ 2.0 DDX: acute blood loss, hemolysis, chronic inflammation leading to bone marrow supression in setting of chronic EtOH substance abuse Likely acute on chronic due to longstanding EtOH substance use disorder and acute GI bleed EGD 10/04/2022: Normal esophageal mucosa in mid and upper esophagus. Grade 1 esophageal varices in lower third of esophagus. There is an evidence of post banding ulcers in the lower third of esophagus with no evidence of recent bleeding and completely clean-based. Diffuse portal gastropathy. #Lactic Acidosis-resolved Case discussed with my senior Dr. Conrad PGY-[address] Martínez Sheets MD PGY-1 Disposition: Telemetry Fluids: None Feeding: N.p.o. Thrombo prophylaxis: SCDs Gastric Ulcer prophylaxis: Pantoprazole 40 mg IV twice daily CODE STATUS: Full code Attending Provider Attestation/Addendum Netta Root DO, attest that I was physically present for the cisneros portions of the service and evaluated the patient with the resident and I reviewed and discussed the case with the resident and agree with the resident's findings and plans of care as documented above Patient seen and evaluated this AM. Patient downgraded from ICU for GIB. Hgb of 5.0 this morning, repeat 5.4. Patient states he drinks beer and half a bottle of hard liquor daily. He has had withdrawals in the past, but denies convulsions.INR 2.1, will transfuse one unit of FFP and 2 units of pRBCs, will f/u with posttransfusion H/h. Patient underwent endoscopy on 08/04 and found to have grade II esophageal varices that were banded. Will recall GI. Continue with protonix and octreotide. He endorses 2 episodes of melena this morning.
[2024-08-06] MEDS: Magnesium Sulfate 2 GM Ivpb 2 GM/50 ML BAG IV (13:38)
[2024-08-06 17:52] LABS: Hematocrit 23.5 % (41.0-53.0)
[2024-08-06 18:33] LABS: Hemoglobin 7.5 g/dL (13.5-16.0)
--- NOTE | 2024-08-06 19:45 | PC.NURSE ---
notified Dr. Ronquillo of hg 7.4, no new orders at this time.
[2024-08-06] MEDS: cefTRIAXone/D5w 1gm IV premix 50 ML IV (20:10)
--- NOTE | 2024-08-06 20:16 | PD.IMPROG ---
Documentation for date of: 08/06/24 Subjective Subjective Interval history: Patient evaluated hemoglobin hematocrit dropped to 5.4 and 17.7 requiring blood transfusion is back up to 7.5 and 23.5 No signs of any active bleeding Repeat endoscopy in a.m. n.p.o. midnight tonight Exam Vital Signs Temp Pulse Resp BP Pulse Ox O2 Del Method O2 Flow Rate 96.3 F L 84 16 109/63 99 Room Air 3 08/06/24 17:03 08/06/24 17:03 08/06/24 17:03 08/06/24 17:03 08/06/24 17:03 08/06/24 16:00 08/04/24 11:40 Constitutional Comments: Alert oriented Routine Respiratory Exam Comments: Normal to auscultation Objective Labs 08/09/24 18:09 08/09/24 05:31 Labs: Laboratory Results - last 24 hr 08/03/24 08/06/24 08/06/24 21:57 05:07 07:32 WBC 6.2 RBC 2.14 L Hgb 5.0 L* D 5.4 L* Hct 16.1 L* 17.7 L* MCV 75 L MCH 23.4 L MCHC 31.1 RDW Std Deviation 65.9 H Plt Count 76 L Neut % (Auto) 64 Lymph % (Auto) 14 Marion % (Auto) 17 H Eos % (Auto) 3 Baso % (Auto) 1 Neut # (Auto) 4.0 Lymph # (Auto) 0.9 L Marion # (Auto) 1.1 H Eos # (Auto) 0.2 Baso # (Auto) 0.1 Immature Gran # (Auto) 0.05 H Absolute Nucleated RBC 0.02 H Immature Gran % 1 H Nucleated RBC % 0 PT 21.4 H D INR 2.1 H APTT 39.9 H Sodium 132 L Potassium 4.6 D Chloride 105 Carbon Dioxide 21.5 Anion Gap 6 L BUN 12 Creatinine 0.7 Estim Creat Clear Calc 124.6 eGFR > 60 BUN/Creatinine Ratio 17 Glucose 110 H Calculated Osmolality 265 L Calcium 6.8 L* Corrected Calcium 8.6 Phosphorus 1.8 L Magnesium 1.4 L Total Bilirubin 12.1 H D AST 58 H ALT 16 Alkaline Phosphatase 88 D Total Protein 5.2 L Albumin 1.7 L Globulin 3.5 Albumin/Globulin Ratio 0.5 L Misc Test Result Platelets confirmed Blood Type A Positive A Positive Antibody Screen NEGATIVE NEGATIVE Crossmatch See Detail See Detail Blood Bank Wristband ID Yes Yes Blood Bank Comment PLATP Ready PLATP Ready 08/06/24 17:28 WBC RBC Hgb 7.5 L D Hct 23.5 L MCV MCH MCHC RDW Std Deviation Plt Count Neut % (Auto) Lymph % (Auto) Marion % (Auto) Eos % (Auto) Baso % (Auto) Neut # (Auto) Lymph # (Auto) Marion # (Auto) Eos # (Auto) Baso # (Auto) Immature Gran # (Auto) Absolute Nucleated RBC Immature Gran % Nucleated RBC % PT INR APTT Sodium Potassium Chloride Carbon Dioxide Anion Gap BUN Creatinine Estim Creat Clear Calc eGFR BUN/Creatinine Ratio Glucose Calculated Osmolality Calcium Corrected Calcium Phosphorus Magnesium Total Bilirubin AST ALT Alkaline Phosphatase Total Protein Albumin Globulin Albumin/Globulin Ratio Misc Test Result Blood Type Antibody Screen Crossmatch Blood Bank Wristband ID Blood Bank Comment Impressions Impression: # Ongoing GI bleed with posthemorrhagic anemia Agree with the blood transfusion repeat endoscopy Assessment & Plan A&P Narrative # Melena # Hematemesis in the setting of cirrhotic liver disease due to alcohol most likely source of bleeding is esophageal variceal bleed or hypertensive portal gastropathy leading to mucosal oozing of blood # Thrombocytopenia # Coagulopathy Plan Agree with the current management with octreotide infusion as well as IV Protonix and blood transfusion Serial CBC N.p.o. Consent obtained for fiberoptic esophagogastroduodenoscopy with possible therapeutic intervention under intravenous moderate sedation Thank you once again for the opportunity to participate in the care of this patient Time Spent With Patient Time: Total time spent is greater than 50% in coordination of care (as documented) at patient's floor/unit and/or counseling patient:
[2024-08-07] VITALS (20 sets, daily range): BP systolic 108–123; BP diastolic 64–80; PULSE 65–94; RESP 13–19; TEMP 36–36.9; O2SAT 96–100; BMI 26.0
[2024-08-07] MEDS: LACTULOSE SYRUP 20 GM/30 ML UDC PO ×3 (05:10→21:58)
[2024-08-07 06:16] LABS: Basophils % (Auto) 0 % (0-2.5); Eosinophils % (Auto) 0 % (0-10); Hematocrit 21.8 % (41.0-53.0); Immature Granulocytes % (Auto) 1 % (0-0); Immature Granulocytes Auto 0.05 Thou/mm3 (0.00-0.00); Lymphocytes # (Auto) 0.6 Thou/mm3 (1.0-4.8); Lymphocytes % (Auto) 11 % (10-50); Mean Corpuscular HGB Conc 32.1 g/dl (31.0-37.0); Mean Corpuscular Hemoglobin 24.9 pg (25.0-35.0); Mean Corpuscular Volume 78 fL (80-100); Monocytes # (Auto) 0.3 Thou/mm3 (0.0-0.8); Monocytes % (Auto) 5 % (0-12); Neutrophils # (Auto) 4.5 Thou/mm3 (1.8-7.7); Neutrophils % (Auto) 83 % (37-80); Nucleated Red Blood Cell % 0 /100 WBC (0); Platelet Count 83 Thou/mm3 (140-440); RDW Standard Deviation 61.8 fL (35.1-43.9); Red Blood Count 2.81 Miln/mm3 (4.50-5.90); White Blood Count 5.5 Thou/mm3 (3.8-10.6)
[2024-08-07 06:18] LABS: INR 1.7 (0.9-1.3); Partial Thromboplastin Time 33.2 Seconds (22.0-36.0); Prothrombin Time 17.7 Seconds (9.0-12.2)
[2024-08-07 06:51] LABS: Alanine Aminotransferase 18 U/L (10-49); Albumin, Serum 2.3 gm/dL (3.5-5.0); Albumin/Globulin Ratio 0.6 (1.2-2.2); Alkaline Phosphatase 97 U/L (46-116); Anion Gap 7 (7-16); Aspartate Amino Transferase 26 U/L (0-34); BUN/Creatinine Ratio 19 Ratio (12-20); Bilirubin,Total 15.4 mg/dL (0.3-1.2); Blood Urea Nitrogen 13 mg/dL (9-23); Calcium 7.5 mg/dL (8.3-10.6); Calcium (Corrected) 8.9 mg/dL (8.5-10.1); Carbon Dioxide 19.1 mMol/L (20.0-31.0); Chloride 107 mMol/L (98-107); Creatinine (Component) 0.7 mg/dL (0.6-1.3); Estimated Creatinine Clearance 120.3 mL/min (>60); Globulin 4.1 gm/dL (2.3-3.5); Glucose 126 mg/dL (74-106); Magnesium 2.1 mg/dL (1.6-2.6); Osmolality,Calculated 268 (275-295); Sodium 133 mMol/L (136-145); Total Protein 6.4 gm/dL (5.7-8.2); eGFR > 60 See Note
--- NOTE | 2024-08-07 09:13 | PC.SS ---
Follow up note: EGD today with Dr. Orozco. Pt will return home upon dc.
[2024-08-07] MEDS: FOLIC ACID 1 MG TABLET PO ×2 (10:20→21:58)
[2024-08-07] MEDS: OCTREOTIDE ACET INJ 1,000 MCG in SODIUM CHLORIDE 0.9% 100 ML 5.1 MCG IV (10:20)
[2024-08-07] MEDS: THIAMINE 100 MG TABLET PO ×2 (10:20→21:58)
[2024-08-07] MEDS: PANTOPRAZOLE INJ 40 MG VIAL IVP ×2 (10:20→21:58)
--- NOTE | 2024-08-07 10:27 | PC.SS ---
Late note 08-06-24: SS met with patient regarding his d/c plan. Pt is alert/oriented. Pt was admitted for GI Bleed, Hypotension. Pt confirmed demographic and contact information is correct on facesheet. Pt resides with mom. Pt ambulates independently without assistance or DME. Pt is ok with all ADLs. Patient?s pharmacy of choice is. Pt named his friend, Marianna Ball medical decision maker if he is unable. Patient?s choice is to return home upon d/c. Pt states not diabetic and is not on dialysis. SS offered pt community resources and information for AA meetings. Pt declined community resources. Pt states he has been to many AA meetings in the past (15 years ago). Pt states he has been drinking for 25 years and drinks beer everyday. Pt does not have PCP. SS provided verbal options for PCP and pt is agreeable to the [facility]. D/C plan: Return home Next of Kin: Marianna Ball, friend, phone# [phone] PCP: Establish at the [facility] Address: Correct on facesheet
--- NOTE | 2024-08-07 10:28 | PC.SS ---
SS attempted to setup appointment with the [facility] but they did not answer. SS left voicemail.
--- NOTE | 2024-08-07 12:40 | ESPR_ITS ---
Documentation for date of: 08/07/24 Senior resident attestation: Patient is a 44-year-old male with a past medical history of cirrhosis secondary to alcohol abuse, who presented with hematemesis and abdominal pain, gastroenterology was consulted, Dr. Orozco performed EGD, GI bleed likely variceal status post EV BL of grade 2 varices during this hospitalization. #Esophageal variceal bleed s/p banding?on octreotide gtt. and pantoprazole 40 mg twice daily, status post EGD, Blatch[place] score 12 points, hemoglobin 4.6 on admission , Hemoglobin improved to 8.3, patient has received 7 PRBC transfusion and 2 FFP's till now. repeat EGD showed grade 1 esophageal varices and evidence of previous band ligation, gastritis and erythema, no fresh blood seen in upper GI tract. Patient on GoLytely prep for colonoscopy. #Decompensated alcoholic cirrhosis #Acute alcoholic hepatitis?Maddrey's discriminant function score 50, INR more than 2, bilirubin more than 12, will start patient on IV methylprednisone 40 mg daily, as patient is already on GI prophylaxis and EGD showed no gastric ulcers. #Alcohol abuse disorder?on CIWA protocol, received oral thiamine and folic acid. #Acute blood loss anemia?in the setting of variceal bleed, blood transfusions as required keep hemoglobin more than 7. #Thrombocytopenia Patient evaluated and examined at the bedside, plan of care discussed with rest of the team including my attending physician, except as noted. Quresh PGY2 Subjective Subjective Interval history: Patient seen today at the bedside found awake, alert, orientedx3. No overnight events reported. States continued episodes of black stools, however abdominal distention has improved. Vital signs stable at this time. Labs significant for decreasing Hg, 1 unit of pRBCs ordered. GI plans to do endoscopy to reevaluate variceal banding. Exam Vital Signs Temp Pulse Resp BP Pulse Ox O2 Del Method O2 Flow Rate 97.0 F 78 16 108/66 99 Room Air 3 08/07/24 11:01 08/07/24 11:08/07/24 11:01 08/07/24 11:01 08/07/24 11:08/07/24 08:00 08/04/24 11:40 Narrative Exam Physical Exam GENERAL: NAD, AAOx3, whole-body jaundice HEENT: Moist mucosa. Scleral icterus CARDIO: Heart RRR, no obvious murmurs PULM: No noted coughing/dyspnea CTA B/L, no R/W/R GI: Abdomen soft, distended, no pain on palpation. BSx4 SKIN/MSK/EXT: no pain on palpation. Pedal pulses present B/L NEURO: AAOx3, no focal neuro deficits, able to move all 4 extremities Objective Labs 08/08/24 04:35 08/08/24 04:35 Labs: Laboratory Results - last 24 hr 08/03/24 08/06/24 08/06/24 21:57 07:32 17:28 WBC RBC Hgb 7.5 L D Hct 23.5 L MCV MCH MCHC RDW Std Deviation Plt Count Neut % (Auto) Lymph % (Auto) [place] % (Auto) Eos % (Auto) Baso % (Auto) Neut # (Auto) Lymph # (Auto) [place] # (Auto) Eos # (Auto) Baso # (Auto) Immature Gran # (Auto) Absolute Nucleated RBC Immature Gran % Nucleated RBC % PT INR APTT Sodium Potassium Chloride Carbon Dioxide Anion Gap BUN Creatinine Estim Creat Clear Calc eGFR BUN/Creatinine Ratio Glucose Calculated Osmolality Calcium Corrected Calcium Phosphorus Magnesium Total Bilirubin AST ALT Alkaline Phosphatase Total Protein Albumin Globulin Albumin/Globulin Ratio Blood Type A Positive Antibody Screen NEGATIVE Crossmatch See Detail See Detail Blood Bank Wristband ID Yes Blood Bank Comment PLATP Ready 08/07/24 05:32 WBC 5.5 RBC 2.81 L Hgb 7.0 L Hct 21.8 L* MCV 78 L MCH 24.9 L MCHC 32.1 RDW Std Deviation 61.8 H Plt Count 83 L Neut % (Auto) 83 H Lymph % (Auto) 11 [place] % (Auto) 5 Eos % (Auto) 0 Baso % (Auto) 0 Neut # (Auto) 4.5 Lymph # (Auto) 0.6 L [place] # (Auto) 0.3 Eos # (Auto) 0.0 Baso # (Auto) 0.0 Immature Gran # (Auto) 0.05 H Absolute Nucleated RBC 0.00 Immature Gran % 1 H Nucleated RBC % 0 PT 17.7 H D INR 1.7 H APTT 33.2 Sodium 133 L Potassium 4.0 D Chloride 107 Carbon Dioxide 19.1 L Anion Gap 7 BUN 13 Creatinine 0.7 Estim Creat Clear Calc 120.3 eGFR > 60 BUN/Creatinine Ratio 19 Glucose 126 H Calculated Osmolality 268 L Calcium 7.5 L Corrected Calcium 8.9 Phosphorus 2.0 L Magnesium 2.1 Total Bilirubin 15.4 H D AST 26 ALT 18 Alkaline Phosphatase 97 Total Protein 6.4 Albumin 2.3 L D Globulin 4.1 H Albumin/Globulin Ratio 0.6 L Blood Type Antibody Screen Crossmatch Blood Bank Wristband ID Blood Bank Comment Quality Measures Quality Measures none Assessment & Plan Assessment Current Active Medications: Generic Name Dose Route Start Last Admin Trade Name Freq PRN Reason Stop Dose Admin Folic Acid 1 mg 08/05/24 09:00 08/07/24 10:20 Folic Acid 1 Mg Tablet PO 08/10/24 08:59 1 mg BID CATHY Administration Ceftriaxone Sodium/Dextrose 50 mls @ 100 mls/hr 08/04/24 01:05 08/06/24 21:53 Rocephin/D5w 1gm Iv Premix IV 08/11/24 01:04 Infused DAILY@2100 CATHY Infusion Octreotide Acetate 1,000 mcg/ 102 mls @ 5.1 mls/hr 08/07/24 09:00 08/07/24 10:20 Sodium Chloride IV 08/09/24 16:59 50 mcg/hr .Q20H CATHY 5.1 mls/hr Administration Protocol 50 MCG/HR Lactulose 20 gm 08/06/24 09:30 08/07/24 05:10 Lactulose Syrup 20 Gm/30 Ml Udc PO 09/05/24 09:29 20 gm TID CATHY Administration Protocol Lorazepam 0.5 mg 08/04/24 15:23 Lorazepam 0.5 Mg Tablet PO 08/09/24 15:22 Q4HR PRN CIWA Score 2-6 Lorazepam 1 mg 08/04/24 15:23 Lorazepam 0.5 Mg Tablet PO 08/09/24 15:22 Q4HR PRN CIWA SCORE 7-11 Lorazepam 2 mg 08/04/24 15:23 Lorazepam 0.5 Mg Tablet PO 08/09/24 15:22 Q4HR PRN CIWA SCORE 12-15 Lorazepam 1 mg 08/04/24 15:23 Lorazepam 2 Mg/Ml Vial IV X1 PRN Breakthrough Agitation Methylprednisolone Sodium Succinate 40 mg 08/06/24 10:15 08/06/24 12:07 Methylprednisolone Sod Succ 40 Mg Vial IVP 08/13/24 10:14 40 mg QDAY CATHY Administration Ondansetron HCl 4 mg 08/04/24 00:25 Ondansetron Inj 2 Mg/Ml Inj 2 Ml IV 09/03/24 00:24 Q6H PRN NAUSEA OR VOMITING Protocol Pantoprazole Sodium 40 mg 08/05/24 21:00 08/07/24 10:20 Pantoprazole Inj 40 Mg Vial IVP 09/04/24 20:59 40 mg BID CATHY Administration Pharmacy Consult 1 each 08/04/24 09:00 Pharmacy Renal Dose Adjustment 1 Ea XX 09/03/24 08:59 QDAY PRN protocol Thiamine HCl 100 mg 08/05/24 09:00 08/07/24 10:20 Thiamine 100 Mg Tablet PO 08/10/24 08:59 100 mg BID CATHY Administration Plan 44-year-old male with past medical history of alcohol abuse, alcoholic cirrhosis, status post variceal banding from a GI bleed (09-21-2022) who presented to the ED of 08/03/2024 with a chief complaint of abdominal pain and hematemesis. As patient was actively bleeding and requiring transfusions was admitted to the ICU for concern of shock and possible need of pressors. During ICU stay patient did not require pressors however did require multiple transfusions. GI was consulted had EGD done was found to have esophageal varices grade 2 which were banded, gastritis with hemorrhage. At this time GI recommended completing octreotide drip for 5 days. At this time patient is downgraded to the floors. # Upper GI bleed secondary to # Esophageal varices status post banding # Status post EGD 08/04 with banding Patient endorsed multiple episodes of melena and acute onset hematemesis with bright red blood prior to presentation. The patient does have a prior history of bleeding with endoscopy revealing variceal bleeding which was subsequently banded in 2022. Patient is known to have a long history of EtOH substance abuse with the development of cirrhosis and variceal bleeding. The source of the patient current bleeding is most likely to be variceal in etiology. Patient also endorse NSAID intake over the last several days. Hg/HCT: 4.6/17.0% on admission [place] = 12 points indicating a High Risk GI bleed that is likely to require medical intervention transfusion, endoscopy, or surgery. A higher GBS also correlated with a higher likelihood of needing intervention (scores greater than or equal to 6 are associated with >50% risk of needing intervention) Current hemoglobin of 5, will transfuse 2 PRBCs 1 FFP at this time ordered more units in case of further need of transfusion Patient today had 2 black stools -Transfused 1 pRBCs -EGD today by Dr. Orozco -Continue IV pantoprazole 40 mg twice daily -Continue on octreotide drip -On IV methylprednisolone 40 mg daily -Monitor H&H, transfuse PRBC if hemoglobin less than 7 - GI, Dr. Orozco consulted, appreciate recommendations #Cirrhosis secondary to chronic decompensated alcohol use disorder #Transaminitis #Ascites #Jaundice/scleral icterus Patient with known history of longstanding EtOH substance abuse with cirrhosis as evidenced on CT-A/P. Physical exam notable for jaundice and scleral icterus. LFT: AST 49, ALT 14, Alkaline Phos. 138 MELD-score: 27 points No evidence of Hepatic Encephalopathy on exam Ascites as evidenced on CT A/P, however only a small amount - on ceftriaxone for SBP prophylaxis -Lactulose 20 mg 3 times daily # Alcohol dependence Patient reports drinking alcohol on a daily basis, last drink on 08/03 night. Will continue to monitor for symptoms of withdrawal Patient drinks beer and about a bottle of liquor every day, last drink August 03 -CIWA protocol -Ativan as needed per CIWA protocol -Oral thiamine and folic acid -Referral to social media coordinator -Recommend following with Alcoholics Anonymous on discharge, avoid alcohol use. -Follow-up with PCP for possibly obtaining pharmacological options to stain from alcohol #Acute blood loss anemia #Acute on chronic microcytic anemia #Thrombocytopenia #Coagulopathy H/H on admission: 4.6/17.0%; MCV: 67, Platelets: 78 PT/INR: 21.0/ 2.0 DDX: acute blood loss, hemolysis, chronic inflammation leading to bone marrow supression in setting of chronic EtOH substance abuse Likely acute on chronic due to longstanding EtOH substance use disorder and acute GI bleed EGD 10/04/2022: Normal esophageal mucosa in mid and upper esophagus. Grade 1 esophageal varices in lower third of esophagus. There is an evidence of post banding ulcers in the lower third of esophagus with no evidence of recent bleeding and completely clean-based. Diffuse portal gastropathy. #Lactic Acidosis-resolved Case discussed with my senior Dr. Conrad PGY-[address] Martínez Sheets MD PGY-1 Disposition: Telemetry Fluids: None Feeding: N.p.o. Thrombo prophylaxis: SCDs Gastric Ulcer prophylaxis: Pantoprazole 40 mg IV twice daily CODE STATUS: Full code Attending Provider Attestation/Addendum Netta Root DO, attest that I was physically present for the cisneros portions of the service and evaluated the patient with the resident and I reviewed and discussed the case with the resident and agree with the resident's findings and plans of care as documented above Patient seen and evaluated this AM. Patient reports feeling improved today and abdomen is softer and less distended. Patient continues to have dark stools. Planned for EGD this evening. 1 unit of PRBCs to be given. INR 1.7. Patient denies shortness of breath. Will f/u on EGD results
[2024-08-07 14:23] LABS: Hematocrit 24.6 % (41.0-53.0)
[2024-08-07 15:14] LABS: Hemoglobin 7.9 g/dL (13.5-16.0)
--- NOTE | 2024-08-07 15:41 | PC.SS ---
Follow up note: Pt is on 5 day course of octreotide drip and he is on his 2nd day. SS has called the [facility] and scheduled pt follow up visit with Dr. Huff for Monday08-16-24 at 9:30am. SS has met with pt and provided him with appointment time, date, address, phone#, and Dr. Huff business card.
--- NOTE | 2024-08-07 20:35 | SUR.PHASEI ---
received pt to [facility] . report from nurse yannick. vss. breathing even and unlabored. denies pain and nausea.
--- NOTE | 2024-08-07 21:05 | SUR.PHASEI ---
report called to paige on tele. vss. breathing even and unlabored. denies pain and nausea. transported to room via gurney.
[2024-08-07 21:41] LABS: Hematocrit 26.1 % (41.0-53.0)
[2024-08-07 21:47] LABS: Hemoglobin 8.3 g/dL (13.5-16.0)
[2024-08-07] MEDS: cefTRIAXone/D5w 1gm IV premix 50 ML IV (21:57)
[2024-08-07] MEDS: NA SU/NAHCO3/KC/PEG (Golytely) 4,000 ML BTL 4000 ML PO (21:58)
[2024-08-08] VITALS (15 sets, daily range): BP systolic 102–156; BP diastolic 64–94; PULSE 67–93; RESP 12–28; TEMP 36.4–36.8; O2SAT 92–100; BMI 29.0
[2024-08-08] MEDS: LACTULOSE SYRUP 20 GM/30 ML UDC PO ×3 (06:06→21:16)
[2024-08-08 06:07] LABS: Basophils # (Auto) 0.1 Thou/mm3 (0.0-0.2); Basophils % (Auto) 2 % (0-2.5); Eosinophils # (Auto) 0.1 Thou/mm3 (0.0-0.5); Eosinophils % (Auto) 2 % (0-10); Hematocrit 23.7 % (41.0-53.0); Immature Granulocytes % (Auto) 1 % (0-0); Immature Granulocytes Auto 0.05 Thou/mm3 (0.00-0.00); Lymphocytes # (Auto) 0.8 Thou/mm3 (1.0-4.8); Lymphocytes % (Auto) 15 % (10-50); Mean Corpuscular HGB Conc 31.6 g/dl (31.0-37.0); Mean Corpuscular Hemoglobin 24.8 pg (25.0-35.0); Mean Corpuscular Volume 79 fL (80-100); Monocytes # (Auto) 0.7 Thou/mm3 (0.0-0.8); Monocytes % (Auto) 12 % (0-12); Neutrophils % (Auto) 69 % (37-80); Nucleated Red Blood Cell % 0 /100 WBC (0); Platelet Count 85 Thou/mm3 (140-440); RDW Standard Deviation 62.1 fL (35.1-43.9); Red Blood Count 3.02 Miln/mm3 (4.50-5.90); White Blood Count 5.8 Thou/mm3 (3.8-10.6)
[2024-08-08 06:09] LABS: Hemoglobin 7.5 g/dL (13.5-16.0)
[2024-08-08 06:19] LABS: INR 1.7 (0.9-1.3); Partial Thromboplastin Time 33.6 Seconds (22.0-36.0); Prothrombin Time 18.2 Seconds (9.0-12.2)
[2024-08-08 06:50] LABS: Alanine Aminotransferase 22 U/L (10-49); Albumin, Serum 2.1 gm/dL (3.5-5.0); Albumin/Globulin Ratio 0.6 (1.2-2.2); Alkaline Phosphatase 90 U/L (46-116); Anion Gap 8 (7-16); Aspartate Amino Transferase 67 U/L (0-34); BUN/Creatinine Ratio 17 Ratio (12-20); Bilirubin,Total 13.2 mg/dL (0.3-1.2); Blood Urea Nitrogen 12 mg/dL (9-23); Calcium 7.2 mg/dL (8.3-10.6); Calcium (Corrected) 8.7 mg/dL (8.5-10.1); Carbon Dioxide 20.2 mMol/L (20.0-31.0); Chloride 109 mMol/L (98-107); Creatinine (Component) 0.7 mg/dL (0.6-1.3); Estimated Creatinine Clearance 135.3 mL/min (>60); Globulin 3.7 gm/dL (2.3-3.5); Glucose 65 mg/dL (74-106); Magnesium 1.8 mg/dL (1.6-2.6); Osmolality,Calculated 271 (275-295); Phosphorous 2.9 mg/dL (2.4-5.1); Potassium 3.8 mMol/L (3.4-5.1); Sodium 137 mMol/L (136-145); Total Protein 5.8 gm/dL (5.7-8.2); eGFR > 60 See Note
[2024-08-08] MEDS: FOLIC ACID 1 MG TABLET PO ×2 (08:51→21:15)
[2024-08-08] MEDS: THIAMINE 100 MG TABLET PO ×2 (08:51→21:15)
[2024-08-08] MEDS: PANTOPRAZOLE INJ 40 MG VIAL IVP ×2 (08:51→21:15)
[2024-08-08] MEDS: OCTREOTIDE ACET INJ 1,000 MCG in SODIUM CHLORIDE 0.9% 100 ML 5.1 MCG IV (11:33)
--- NOTE | 2024-08-08 12:04 | PD.RESPRO ---
Documentation for date of: 08/08/24 Senior resident attestation: Patient is a 44-year-old male with a past medical history of cirrhosis secondary to alcohol abuse, who presented with hematemesis and abdominal pain, gastroenterology was consulted, Dr. Orozco performed EGD, GI bleed likely variceal status post EV BL of grade 2 varices during this hospitalization. #Esophageal variceal bleed s/p banding?on octreotide gtt. and pantoprazole 40 mg twice daily, status post EGD, Blatch[place] score 12 points, hemoglobin 4.6 on admission , Hemoglobin improved to 8.3, patient has received 7 PRBC transfusion and 2 FFP's till now. repeat EGD showed grade 1 esophageal varices and evidence of previous band ligation, gastritis and erythema, no fresh blood seen in upper GI tract. Patient on GoLytely prep for colonoscopy. #Decompensated alcoholic cirrhosis #Acute alcoholic hepatitis?Maddrey's discriminant function score 50, INR more than 2, bilirubin more than 12, will start patient on IV methylprednisone 40 mg daily, as patient is already on GI prophylaxis and EGD showed no gastric ulcers. #Alcohol abuse disorder?on CIWA protocol, received oral thiamine and folic acid. #Acute blood loss anemia?in the setting of variceal bleed, blood transfusions as required keep hemoglobin more than 7. #Thrombocytopenia Patient evaluated and examined at the bedside, plan of care discussed with rest of the team including my attending physician, except as noted. Quresh PGY2 Subjective Subjective Interval history: Patient seen today at the bedside fine awake, alert, oriented x 3. No overnight events reported. Vital signs stable at this time. Labs significant for downtrending hemoglobin. EGD was done yesterday esophageal banding, remains intact however this morning patient reports having bright red blood blood per rectum. Currently undergoing GoLytely prep for possible colonoscopy today. Exam Vital Signs Temp Pulse Resp BP Pulse Ox O2 Del Method O2 Flow Rate 98.0 F 79 12 110/67 98 Room Air 3 08/08/24 08:00 08/08/24 08:00 08/08/24 08:00 08/08/24 08:00 08/08/24 08:00 08/08/24 08:00 08/07/24 20:30 Narrative Exam Physical Exam GENERAL: NAD, AAOx3, whole-body jaundice HEENT: Moist mucosa. Scleral icterus CARDIO: Heart RRR, no obvious murmurs PULM: No noted coughing/dyspnea CTA B/L, no R/W/R GI: Abdomen soft, distended, no pain on palpation. BSx4 SKIN/MSK/EXT: no pain on palpation. Pedal pulses present B/L NEURO: AAOx3, no focal neuro deficits, able to move all 4 extremities Objective Labs 08/09/24 05:31 08/09/24 05:31 Labs: Laboratory Results - last 24 hr 08/06/24 08/07/24 08/07/24 07:32 14:01 21:06 WBC RBC Hgb 7.9 L 8.3 L Hct 24.6 L 26.1 L MCV MCH MCHC RDW Std Deviation Plt Count Neut % (Auto) Lymph % (Auto) [place] % (Auto) Eos % (Auto) Baso % (Auto) Neut # (Auto) Lymph # (Auto) [place] # (Auto) Eos # (Auto) Baso # (Auto) Immature Gran # (Auto) Absolute Nucleated RBC Immature Gran % Nucleated RBC % PT INR APTT Sodium Potassium Chloride Carbon Dioxide Anion Gap BUN Creatinine Estim Creat Clear Calc eGFR BUN/Creatinine Ratio Glucose Calculated Osmolality Calcium Corrected Calcium Phosphorus Magnesium Total Bilirubin AST ALT Alkaline Phosphatase Total Protein Albumin Globulin Albumin/Globulin Ratio Blood Type A Positive Antibody Screen NEGATIVE Crossmatch See Detail Blood Bank Wristband ID Yes Blood Bank Comment PLATP Ready 08/08/24 04:35 WBC 5.8 RBC 3.02 L Hgb 7.5 L Hct 23.7 L MCV 79 L MCH 24.8 L MCHC 31.6 RDW Std Deviation 62.1 H Plt Count 85 L Neut % (Auto) 69 Lymph % (Auto) 15 [place] % (Auto) 12 Eos % (Auto) 2 Baso % (Auto) 2 Neut # (Auto) 4.0 Lymph # (Auto) 0.8 L [place] # (Auto) 0.7 Eos # (Auto) 0.1 Baso # (Auto) 0.1 Immature Gran # (Auto) 0.05 H Absolute Nucleated RBC 0.00 Immature Gran % 1 H Nucleated RBC % 0 PT 18.2 H INR 1.7 H APTT 33.6 Sodium 137 Potassium 3.8 Chloride 109 H Carbon Dioxide 20.2 Anion Gap 8 BUN 12 Creatinine 0.7 Estim Creat Clear Calc 135.3 eGFR > 60 BUN/Creatinine Ratio 17 Glucose 65 L D Calculated Osmolality 271 L Calcium 7.2 L Corrected Calcium 8.7 Phosphorus 2.9 Magnesium 1.8 Total Bilirubin 13.2 H D AST 67 H ALT 22 Alkaline Phosphatase 90 Total Protein 5.8 Albumin 2.1 L Globulin 3.7 H Albumin/Globulin Ratio 0.6 L Blood Type Antibody Screen Crossmatch Blood Bank Wristband ID Blood Bank Comment Quality Measures Quality Measures none Assessment & Plan Assessment Current Active Medications: Generic Name Dose Route Start Last Admin Trade Name Freq PRN Reason Stop Dose Admin Folic Acid 1 mg 08/05/24 09:00 08/08/24 08:51 Folic Acid 1 Mg Tablet PO 08/10/24 08:59 1 mg BID CATHY Administration Ceftriaxone Sodium/Dextrose 50 mls @ 100 mls/hr 08/04/24 01:05 08/07/24 21:57 Rocephin/D5w 1gm Iv Premix IV 08/11/24 01:04 100 mls/hr DAILY@2100 CATHY Administration Octreotide Acetate 1,000 mcg/ 102 mls @ 5.1 mls/hr 08/07/24 09:00 08/08/24 11:33 Sodium Chloride IV 08/09/24 16:59 50 mcg/hr .Q20H CATHY 5.1 mls/hr Administration Protocol 50 MCG/HR Lactulose 20 gm 08/06/24 09:30 08/08/24 06:06 Lactulose Syrup 20 Gm/30 Ml Udc PO 09/05/24 09:29 20 gm TID CATHY Administration Protocol Methylprednisolone Sodium Succinate 40 mg 08/06/24 10:15 08/08/24 08:51 Methylprednisolone Sod Succ 40 Mg Vial IVP 08/13/24 10:14 40 mg QDAY CATHY Administration Ondansetron HCl 4 mg 08/04/24 00:25 Ondansetron Inj 2 Mg/Ml Inj 2 Ml IV 09/03/24 00:24 Q6H PRN NAUSEA OR VOMITING Protocol Pantoprazole Sodium 40 mg 08/05/24 21:00 08/08/24 08:51 Pantoprazole Inj 40 Mg Vial IVP 09/04/24 20:59 40 mg BID CATHY Administration Pharmacy Consult 1 each 08/04/24 09:00 Pharmacy Renal Dose Adjustment 1 Ea XX 09/03/24 08:59 QDAY PRN protocol Thiamine HCl 100 mg 08/05/24 09:00 08/08/24 08:51 Thiamine 100 Mg Tablet PO 08/10/24 08:59 100 mg BID CATHY Administration Plan 44-year-old male with past medical history of alcohol abuse, alcoholic cirrhosis, status post variceal banding from a GI bleed (09-21-2022) who presented to the ED of 08/03/2024 with a chief complaint of abdominal pain and hematemesis. As patient was actively bleeding and requiring transfusions was admitted to the ICU for concern of shock and possible need of pressors. During ICU stay patient did not require pressors however did require multiple transfusions. GI was consulted had EGD done was found to have esophageal varices grade 2 which were banded, gastritis with hemorrhage. At this time GI recommended completing octreotide drip for 5 days. At this time patient is downgraded to the floors. # Upper GI bleed secondary to # Esophageal varices status post banding # Status post EGD 08/04 with banding #Bright red blood per rectum Patient endorsed multiple episodes of melena and acute onset hematemesis with bright red blood prior to presentation. The patient does have a prior history of bleeding with endoscopy revealing variceal bleeding which was subsequently banded in 2022. Patient is known to have a long history of EtOH substance abuse with the development of cirrhosis and variceal bleeding. The source of the patient current bleeding is most likely to be variceal in etiology. Patient also endorse NSAID intake over the last several days. Hg/HCT: 4.6/17.0% on admission [place]-Blatch[place] = 12 points indicating a High Risk GI bleed that is likely to require medical intervention transfusion, endoscopy, or surgery. A higher GBS also correlated with a higher likelihood of needing intervention (scores greater than or equal to 6 are associated with >50% risk of needing intervention) Current hemoglobin of 5, will transfuse 2 PRBCs 1 FFP at this time ordered more units in case of further need of transfusion Patient today had 2 black stools EGD showed pain to and esophageal banding Patient will undergo GoLytely prep for colonoscopy today as patient is stating bright red blood per rectum -Pending colonoscopy -Continue IV pantoprazole 40 mg twice daily -Continue on octreotide drip -On IV methylprednisolone 40 mg daily -Monitor H&H, transfuse PRBC if hemoglobin less than 7 - GI, Dr. Orozco consulted, appreciate recommendations #Cirrhosis secondary to chronic decompensated alcohol use disorder #Transaminitis #Ascites #Jaundice/scleral icterus Patient with known history of longstanding EtOH substance abuse with cirrhosis as evidenced on CT-A/P. Physical exam notable for jaundice and scleral icterus. LFT: AST 49, ALT 14, Alkaline Phos. 138 MELD-score: 27 points No evidence of Hepatic Encephalopathy on exam Ascites as evidenced on CT A/P, however only a small amount - on ceftriaxone for SBP prophylaxis -Lactulose 20 mg 3 times daily # Alcohol dependence Patient reports drinking alcohol on a daily basis, last drink on 08/03 night. Will continue to monitor for symptoms of withdrawal Patient drinks beer and about a bottle of liquor every day, last drink August 03 -[facility] protocol -Ativan as needed per [facility] protocol -Oral thiamine and folic acid -Referral to hospital social worker -Recommend following with Alcoholics Anonymous on discharge, avoid alcohol use. -Follow-up with PCP for possibly obtaining pharmacological options to abstain from alcohol #Acute blood loss anemia #Acute on chronic microcytic anemia #Thrombocytopenia #Coagulopathy H/H on admission: 4.6/17.0%; MCV: 67, Platelets: 78 PT/INR: 21.0/ 2.0 DDX: acute blood loss, hemolysis, chronic inflammation leading to bone marrow supression in setting of chronic EtOH substance abuse Likely acute on chronic due to longstanding EtOH substance use disorder and acute GI bleed EGD 10/04/2022: Normal esophageal mucosa in mid and upper esophagus. Grade 1 esophageal varices in lower third of esophagus. There is an evidence of post banding ulcers in the lower third of esophagus with no evidence of recent bleeding and completely clean-based. Diffuse portal gastropathy. #Lactic Acidosis-resolved Case discussed with my senior Dr. Conrad PGY-[address] Martínez Sheets MD PGY-1 Disposition: Telemetry Fluids: None Feeding: N.p.o. Thrombo prophylaxis: SCDs Gastric Ulcer prophylaxis: Pantoprazole 40 mg IV twice daily CODE STATUS: Full code Attending Provider Attestation/Addendum Netta Root DO, attest that I was physically present for the cisneros portions of the service and evaluated the patient with the resident and I reviewed and discussed the case with the resident and agree with the resident's findings and plans of care as documented above Patient seen and evaluated this AM. Patient is resting comfortably. He reported bright red blood per rectum, suspect hemorrhoids. H/H stable and patient remains hemodynamically stable. EGD yesterday showed variceal bands in place, no evidence of bleeing found. Patient is scheduled for colonoscopy this evening. Will f/u with results. Bilirubin downtrending.
[2024-08-08 14:16] LABS: Hematocrit 23.2 % (41.0-53.0)
[2024-08-08 14:54] LABS: Hemoglobin 7.4 g/dL (13.5-16.0)
--- NOTE | 2024-08-08 18:57 | SUR.PHASEI ---
Pt. arrived to recovery via [facility] [place], no c/o pain or nausea at this time, responds to verbal commands, pt. is resting with eyes closed, report received from Ernestina CONWAY.
--- NOTE | 2024-08-08 19:25 | SUR.PHASEI ---
Called and gave report on pt. s/p procedure to Iza CONWAY on telemetry.
--- NOTE | 2024-08-08 19:30 | SUR.PHASEI ---
Pt. transferred to room 278 via tian, pt. AAOx3, no c/o pain or nausea at this time, Iza ALFONSO RN assumed care of pt.
[2024-08-08] MEDS: cefTRIAXone/D5w 1gm IV premix 50 ML IV (21:15)
[2024-08-09] VITALS (11 sets, daily range): BP systolic 115–146; BP diastolic 70–89; PULSE 70–87; RESP 16–23; TEMP 36–36.9; O2SAT 96–100; BMI 26.0
[2024-08-09] MEDS: LACTULOSE SYRUP 20 GM/30 ML UDC PO ×3 (05:12→20:46)
[2024-08-09 06:11] LABS: INR 1.8 (0.9-1.3); Partial Thromboplastin Time 34.2 Seconds (22.0-36.0); Prothrombin Time 19.2 Seconds (9.0-12.2)
[2024-08-09 06:35] LABS: Phosphorous 2.7 mg/dL (2.4-5.1)
[2024-08-09] MEDS: THIAMINE 100 MG TABLET PO ×2 (08:20→20:45)
[2024-08-09] MEDS: PANTOPRAZOLE INJ 40 MG VIAL IVP ×2 (08:20→20:45)
[2024-08-09] MEDS: FOLIC ACID 1 MG TABLET PO ×2 (08:20→20:45)
[2024-08-09 08:31] LABS: Basophils % (Auto) 0 % (0-2.5); Eosinophils % (Auto) 0 % (0-10); Hematocrit 20.3 % (41.0-53.0); Immature Granulocytes % (Auto) 1 % (0-0); Immature Granulocytes Auto 0.03 Thou/mm3 (0.00-0.00); Lymphocytes # (Auto) 0.7 Thou/mm3 (1.0-4.8); Lymphocytes % (Auto) 11 % (10-50); Mean Corpuscular Hemoglobin 25.4 pg (25.0-35.0); Mean Corpuscular Volume 79 fL (80-100); Monocytes # (Auto) 0.5 Thou/mm3 (0.0-0.8); Monocytes % (Auto) 9 % (0-12); Neutrophils # (Auto) 4.8 Thou/mm3 (1.8-7.7); Neutrophils % (Auto) 80 % (37-80); Nucleated Red Blood Cell % 0 /100 WBC (0); Platelet Count 79 Thou/mm3 (140-440); RDW Standard Deviation 63.4 fL (35.1-43.9); Red Blood Count 2.56 Miln/mm3 (4.50-5.90)
[2024-08-09 08:37] LABS: Hemoglobin 6.5 g/dL (13.5-16.0)
--- NOTE | 2024-08-09 08:39 | XR_ITS ---
Examination: AP chest single view Technique one AP portable sitting chest single view Exam date and time: August 09, 2024 at 0854 hours INDICATIONS: Shortness of breath today FINDINGS: Normal heart size Lungs are clear Lungs are well expanded The osseous structures are intact Stable pulmonary nodule right lower lobe compared with September 30, 2022 IMPRESSION: No pneumonia or pulmonary edema Negative for pneumothorax
--- NOTE | 2024-08-09 08:52 | PC.SS ---
Follow up note: Will complete octreotide drip today. Waiting for Dr. Orozco to give ok to dc. Pt will return home upon d.c.
[2024-08-09 09:19] LABS: Alanine Aminotransferase 28 U/L (10-49); Albumin, Serum 2.1 gm/dL (3.5-5.0); Albumin/Globulin Ratio 0.6 (1.2-2.2); Alkaline Phosphatase 88 U/L (46-116); Anion Gap 8 (7-16); Aspartate Amino Transferase 46 U/L (0-34); BUN/Creatinine Ratio 17 Ratio (12-20); Bilirubin,Total 11.4 mg/dL (0.3-1.2); Blood Urea Nitrogen 12 mg/dL (9-23); Calcium 7.1 mg/dL (8.3-10.6); Calcium (Corrected) 8.6 mg/dL (8.5-10.1); Carbon Dioxide 20.2 mMol/L (20.0-31.0); Chloride 107 mMol/L (98-107); Creatinine (Component) 0.7 mg/dL (0.6-1.3); Estimated Creatinine Clearance 120.3 mL/min (>60); Globulin 3.5 gm/dL (2.3-3.5); Glucose 135 mg/dL (74-106); Osmolality,Calculated 271 (275-295); Sodium 135 mMol/L (136-145); Total Protein 5.6 gm/dL (5.7-8.2); eGFR > 60 See Note
[2024-08-09 09:32] LABS: Slide Review Platelets confirmed
--- NOTE | 2024-08-09 11:44 | XR_ITS ---
Examination: CTA abdomen, with intravenous contrast. CTA pelvis, with intravenous contrast. 2-D sagittal and coronal reconstructions. 3-D reconstructions. Date and time of exam: August 09, 2024 1241 hours INDICATIONS: Gastrointestinal bleeding today, alcohol abuse history, abdominal pain 5 days CTDI vol (mgy) 8.16 DLP (MGycm) 545 Technique: Multiple CTA images, 2.0 mm slice thickness, obtained abdomen, pelvis, with the high-resolution 64 slice scanner. 100 cc Isovue-370 is administered intravenously. Sagittal and coronal 2-D reconstructions are obtained. 3-D reconstructions, angiographic images are obtained. 3-D postprocessing, including vascular maximum intensity projections. Low dose protocols were performed. One or more of the following dose reduction techniques were used; automated exposure control, adjustment of the mA and/or KV according to patient size, use of iterative reconstruction technique. Findings: Cirrhosis, liver irregular in contour, no focal liver lesions The gallbladder wall is thickened but the patient has mild ascites Massive splenomegaly Portosystemic collateral vessels medial to the spleen Mucosal thickening diffusely in the stomach No pancreatic mass Aorta normal size Atrophic significantly scarred left kidney Wall thickening diffusely involving the colon, wall thickening involving small bowel There is contrast accumulation in the right colon, axial image 146 No significant prostatomegaly No bladder mass IMPRESSION: Cirrhosis Massive splenomegaly Portosystemic collateral vessels medial to the spleen Thickened and hyperemic gastric mucosa, consider significant gastritis Suspicious for gastrointestinal bleeding in the right colon, coronal image 49 Hepatic colopathy, hepatic enteropathy,
--- NOTE | 2024-08-09 14:06 | PD.RESPRO ---
Documentation for date of: 08/09/24 Subjective Subjective Interval history: Patient seen today at the bedside and awake, alert, oriented x 3. No overnight events reported. Vital signs stable at this time. Lab significant for continued downtrending hemoglobin 1 PRBC was ordered for transfusion. CTA abdomen pelvis ordered found suspicious bleeding in the right colon. Transfer process has started for IR embolization. Exam Vital Signs Temp Pulse Resp BP Pulse Ox O2 Del Method O2 Flow Rate 98.1 F 74 16 128/82 98 Room Air 2 08/09/24 12:00 08/09/24 12:00 08/09/24 12:00 08/09/24 12:08/09/24 12:00 08/09/24 12:00 08/08/24 19:24 Narrative Exam Physical Exam GENERAL: NAD, AAOx3, whole-body jaundice HEENT: Moist mucosa. Scleral icterus CARDIO: Heart RRR, no obvious murmurs PULM: No noted coughing/dyspnea CTA B/L, no R/W/R GI: Abdomen soft, distended, no pain on palpation. BSx4 SKIN/MSK/EXT: no pain on palpation. Pedal pulses present B/L NEURO: AAOx3, no focal neuro deficits, able to move all 4 extremities Objective Labs 08/09/24 05:31 08/09/24 05:31 Labs: Laboratory Results - last 24 hr 08/06/24 08/08/24 08/09/24 07:32 13:50 05:31 WBC 6.0 RBC 2.56 L Hgb 7.4 L 6.5 L* Hct 23.2 L 20.3 L* MCV 79 L MCH 25.4 MCHC 32.0 RDW Std Deviation 63.4 H Plt Count 79 L Neut % (Auto) 80 Lymph % (Auto) 11 Waldo % (Auto) 9 Eos % (Auto) 0 Baso % (Auto) 0 Neut # (Auto) 4.8 Lymph # (Auto) 0.7 L Waldo # (Auto) 0.5 Eos # (Auto) 0.0 Baso # (Auto) 0.0 Immature Gran # (Auto) 0.03 H Absolute Nucleated RBC 0.00 Immature Gran % 1 H Nucleated RBC % 0 PT 19.2 H INR 1.8 H APTT 34.2 Sodium 135 L Potassium 4.0 Chloride 107 Carbon Dioxide 20.2 Anion Gap 8 BUN 12 Creatinine 0.7 Estim Creat Clear Calc 120.3 eGFR > 60 BUN/Creatinine Ratio 17 Glucose 135 H D Calculated Osmolality 271 L Calcium 7.1 L Corrected Calcium 8.6 Phosphorus 2.7 Total Bilirubin 11.4 H D AST 46 H ALT 28 Alkaline Phosphatase 88 Total Protein 5.6 L Albumin 2.1 L Globulin 3.5 Albumin/Globulin Ratio 0.6 L Misc Test Result Platelets confirmed Blood Type Antibody Screen Crossmatch See Detail Blood Bank Wristband ID 08/09/24 11:20 WBC RBC Hgb Hct MCV MCH MCHC RDW Std Deviation Plt Count Neut % (Auto) Lymph % (Auto) Waldo % (Auto) Eos % (Auto) Baso % (Auto) Neut # (Auto) Lymph # (Auto) Waldo # (Auto) Eos # (Auto) Baso # (Auto) Immature Gran # (Auto) Absolute Nucleated RBC Immature Gran % Nucleated RBC % PT INR APTT Sodium Potassium Chloride Carbon Dioxide Anion Gap BUN Creatinine Estim Creat Clear Calc eGFR BUN/Creatinine Ratio Glucose Calculated Osmolality Calcium Corrected Calcium Phosphorus Total Bilirubin AST ALT Alkaline Phosphatase Total Protein Albumin Globulin Albumin/Globulin Ratio Misc Test Result Blood Type A Positive Antibody Screen NEGATIVE Crossmatch See Detail Blood Bank Wristband ID Yes Quality Measures Quality Measures none Assessment & Plan Assessment Current Active Medications: Generic Name Dose Route Start Last Admin Trade Name Cathleen PRN Reason Stop Dose Admin Folic Acid 1 mg 08/05/24 09:00 08/09/24 08:20 Folic Acid 1 Mg Tablet PO 08/10/24 08:59 1 mg BID CATHY Administration Ceftriaxone Sodium/Dextrose 50 mls @ 100 mls/hr 08/04/24 01:05 08/08/24 21:15 Rocephin/D5w 1gm Iv Premix IV 08/11/24 01:04 100 mls/hr DAILY@2100 CATHY Administration Octreotide Acetate 1,000 mcg/ 102 mls @ 5.1 mls/hr 08/07/24 09:00 08/08/24 11:33 Sodium Chloride IV 08/09/24 16:59 50 mcg/hr .Q20H CATHY 5.1 mls/hr Administration Protocol 50 MCG/HR Lactulose 20 gm 08/06/24 09:30 08/09/24 05:12 Lactulose Syrup 20 Gm/30 Ml Udc PO 09/05/24 09:29 20 gm TID CATHY Administration Protocol Methylprednisolone Sodium Succinate 40 mg 08/06/24 10:15 08/09/24 08:20 Methylprednisolone Sod Succ 40 Mg Vial IVP 08/13/24 10:14 40 mg QDAY CATHY Administration Ondansetron HCl 4 mg 08/04/24 00:25 Ondansetron Inj 2 Mg/Ml Inj 2 Ml IV 09/03/24 00:24 Q6H PRN NAUSEA OR VOMITING Protocol Pantoprazole Sodium 40 mg 08/05/24 21:00 08/09/24 08:20 Pantoprazole Inj 40 Mg Vial IVP 09/04/24 20:59 40 mg BID CATHY Administration Pharmacy Consult 1 each 08/04/24 09:00 Pharmacy Renal Dose Adjustment 1 Ea XX 09/03/24 08:59 QDAY PRN protocol Thiamine HCl 100 mg 08/05/24 09:00 08/09/24 08:20 Thiamine 100 Mg Tablet PO 08/10/24 08:59 100 mg BID CATHY Administration Plan 44-year-old male with past medical history of alcohol abuse, alcoholic cirrhosis, status post variceal banding from a GI bleed (09-21-2022) who presented to the ED of 08/03/2024 with a chief complaint of abdominal pain and hematemesis. As patient was actively bleeding and requiring transfusions was admitted to the ICU for concern of shock and possible need of pressors. During ICU stay patient did not require pressors however did require multiple transfusions. GI was consulted had EGD done was found to have esophageal varices grade 2 which were banded, gastritis with hemorrhage. At this time GI recommended completing octreotide drip for 5 days. At this time patient is downgraded to the floors. # Upper GI bleed secondary to # Esophageal varices status post banding # Status post EGD 08/04 with banding #Bright red blood per rectum Patient endorsed multiple episodes of melena and acute onset hematemesis with bright red blood prior to presentation. The patient does have a prior history of bleeding with endoscopy revealing variceal bleeding which was subsequently banded in 2022. Patient is known to have a long history of EtOH substance abuse with the development of cirrhosis and variceal bleeding. The source of the patient current bleeding is most likely to be variceal in etiology. Patient also endorse NSAID intake over the last several days. Hg/HCT: 4.6/17.0% on admission [place] = 12 points indicating a High Risk GI bleed that is likely to require medical intervention transfusion, endoscopy, or surgery. A higher GBS also correlated with a higher likelihood of needing intervention (scores greater than or equal to 6 are associated with >50% risk of needing intervention) Current hemoglobin of 5, will transfuse 2 PRBCs 1 FFP at this time ordered more units in case of further need of transfusion Patient today had 2 black stools EGD showed pain to and esophageal banding Patient will undergo GoLytely prep for colonoscopy today as patient is stating bright red blood per rectum Colonoscopy showed hemorrhoids CTA abdomen pelvis showed suspicious bleed in the right colon, will pursue transfer process. For IR embolization -Transfuse 1 PRBC -Continue IV pantoprazole 40 mg twice daily -Continue on octreotide drip -On IV methylprednisolone 40 mg daily -Monitor H&H, transfuse PRBC if hemoglobin less than 7 - GI, Dr. Orozco consulted, appreciate recommendations #Cirrhosis secondary to chronic decompensated alcohol use disorder #Transaminitis #Ascites #Jaundice/scleral icterus Patient with known history of longstanding EtOH substance abuse with cirrhosis as evidenced on CT-A/P. Physical exam notable for jaundice and scleral icterus. LFT: AST 49, ALT 14, Alkaline Phos. 138 MELD-score: 27 points No evidence of Hepatic Encephalopathy on exam Ascites as evidenced on CT A/P, however only a small amount - on ceftriaxone for SBP prophylaxis -Lactulose 20 mg 3 times daily # Alcohol dependence Patient reports drinking alcohol on a daily basis, last drink on 08/03 night. Will continue to monitor for symptoms of withdrawal Patient drinks beer and about a bottle of liquor every day, last drink August 03 -[place] protocol -Ativan as needed per [facility] protocol -Oral thiamine and folic acid -Referral to social work coordinator -Recommend following with Alcoholics Anonymous on discharge, avoid alcohol use. -Follow-up with PCP for possibly obtaining pharmacological options to abstain from alcohol #Acute blood loss anemia #Acute on chronic microcytic anemia #Thrombocytopenia #Coagulopathy H/H on admission: 4.6/17.0%; MCV: 67, Platelets: 78 PT/INR: 21.0/ 2.0 DDX: acute blood loss, hemolysis, chronic inflammation leading to bone marrow supression in setting of chronic EtOH substance abuse Likely acute on chronic due to longstanding EtOH substance use disorder and acute GI bleed EGD 10/04/2022: Normal esophageal mucosa in mid and upper esophagus. Grade 1 esophageal varices in lower third of esophagus. There is an evidence of post banding ulcers in the lower third of esophagus with no evidence of recent bleeding and completely clean-based. Diffuse portal gastropathy. #Lactic Acidosis-resolved Case discussed with my senior Dr. Conrad PGY-[address] Chaparrita Sheets MD PGY-1 Disposition: Telemetry Fluids: None Feeding: Low sodium Thrombo prophylaxis: SCDs Gastric Ulcer prophylaxis: Pantoprazole 40 mg IV twice daily CODE STATUS: Full code
--- NOTE | 2024-08-09 14:55 | ESDS_ITS ---
Planned Discharge Date 08/09/24 DS: Providers Provider Date of admission: 08/04/24 00:19 Primary care physician: Physician No Primary/Family Admitting Provider: Suresh Maciel MD Attending Provider on Admission: Netta Soliz DO Consults: 08/04/24 00:29 Consult to Gastroenterology Routine Comment: Consulting Provider: Julissa Orozco 08/09/24 14:13 Referral - [employer] Stat Service Needed for Transfer: Interventional Radiology Addl Comments:: Transfer for IR embolization of GI bleeding. Attending Provider on DC: Oneal Cheatham MD Discharging Provider: Rodrigo Sheets MD DS: Diagnosis Problem List Completed Was Problem List Reviewed/Reconciled?: Yes Hospital Course Hospital Course Hospital course: 44-year-old male with past medical history of alcohol abuse, alcoholic cirrhosis, status post variceal banding from a GI bleed (09-21-2022) who presented to the ED of 08/03/2024 with a chief complaint of abdominal pain and hematemesis. As patient was actively bleeding and requiring transfusions was admitted to the ICU for concern of shock and possible need of pressors. During ICU stay patient did not require pressors however did require multiple transfusions. GI was consulted had EGD done was found to have esophageal varices grade 2 which were banded, gastritis with hemorrhage. At this time GI recommended completing octreotide drip for 5 days. At this time patient is downgraded to the floors. During hospital stay patient had multiple transfusions including PRBCs, fresh frozen plasma. With continued hemoglobin and hematocrit monitoring. GI specialist was consulted patient had endoscopy and colonoscopy both found negative for acute bleeding. However patient's hemoglobin continued to downtrend and CTA abdomen pelvis was done which showed Cirrhosis, Massive splenomegaly, Portosystemic collateral vessels medial to the spleen, Thickened and hyperemic gastric mucosa, consider significant gastritis, Suspicious for gas trointestinal bleeding in the right colon, coronal image 49, Hepatic colopathy, hepatic enteropathy. Patient was also provided with IV steroid medication, octreotide drip, pantoprazole 40 mg twice daily. Patient will require IR embolization for GI bleed. Patient has history of cirrhosis with transaminitis ascites and jaundice with scleral icterus SBP prophylaxis managed with ceftriaxone, lactulose was provided as well for bowel movements goal of 3/day. Alcohol use disorder was managed with [facility] protocol with as needed Ativan, IV thiamine and folic acid. At this time patient is stable for transfer. Patient's hemoglobin continues to downtrend despite multiple transfusions. CTA abdomen pelvis was done which showed Thickened and hyperemic gastric mucosa, consider significant gastritis, Suspicious for gastrointestinal bleeding in the right colon. Patient will likely require higher level of care for IR embolization of GI bleed. Problem list: # Upper GI bleed secondary to # Esophageal varices status post banding # Status post EGD 08/04 with banding #Bright red blood per rectum #Cirrhosis secondary to chronic decompensated alcohol use disorder #Transaminitis #Ascites #Jaundice/scleral icterus # Alcohol dependence #Acute blood loss anemia #Acute on chronic microcytic anemia #Thrombocytopenia #Coagulopathy #Lactic Acidosis-resolved Case discussed with my senior Dr. Conard PGY-[address] Chaparrita Sheets MD PGY-1 Senior resident attestation: Patient evaluated and examined at the bedside, plan of care discussed with rest of the team including my attending physician, except as noted. [place] PGY2 Status at Discharge Functional status at discharge: independent ambulation Overall status at discharge: patient is not back to baseline Time Spent with Patient Time attestation: Total time spent providing and/or coordinating discharge services: Time spent: Greater than 30 minutes Exam Vital Signs Temp Pulse Resp BP Pulse Ox O2 Del Method O2 Flow Rate 96.8 F 84 19 131/75 H 97 Room Air 0 08/09/24 14:44 08/09/24 14:44 08/09/24 14:44 08/09/24 14:44 08/09/24 14:44 08/09/24 12:00 08/09/24 14:44 Narrative Exam Physical Exam GENERAL: NAD, AAOx3, whole-body jaundice HEENT: Moist mucosa. Scleral icterus CARDIO: Heart RRR, no obvious murmurs PULM: No noted coughing/dyspnea CTA B/L, no R/W/R GI: Abdomen soft, distended, no pain on palpation. BSx4 SKIN/MSK/EXT: no pain on palpation. Pedal pulses present B/L NEURO: AAOx3, no focal neuro deficits, able to move all 4 extremities Discharge Plan Prescriptions/Referrals Prescriptions/Med Rec: New pantoprazole [Protonix] 40 mg tablet,delayed release (DR/EC) 40 mg PO QDAY Qty: 30 0RF lactulose 10 gram/15 mL (15 mL) solution 10 g PO QDAY PRN (Reason: constipation) Qty: 300 0RF prednisolone sodium phosphate 10 mg tablet,disintegrating 40 mg PO QDAY 26 Days Qty: 104 0RF Rx Instructions: Recommend prednisolone 40 mg/day for 26 more days, will require steroid taper after finishing treatment, follow-up with outpatient doctor within 3 weeks for instructions regarding prednisone taper. Referrals: No Primary/Family,Physician [Primary Care Provider] - Patient/Caregiver Discharge Instructions Other Discharge Activity Instructions:: Follow up appointment with Dr. Huff at [facility] August 16, 2024 at 9:30am phone number is [phone]. Recommend prednisolone 40 mg/day for 26 more days, will require steroid taper after finishing treatment, follow-up with outpatient doctor within 3 weeks for instructions regarding prednisone taper. Print Language: Martiniquais Quality Discharge Quality Measures VTE prophylaxis Attestestation Attestation 44-year-old male with alcohol use disorder with subsequent end-stage liver disease who presented with hematemesis found to have upper GI bleed secondary to esophageal varices status post banding. However, patient started having bright red blood per rectum and underwent CTA which noted right colonic bleeding and thus plan to transfer the patient for IR embolization. Overnight, no acute events and pending transfer. I reviewed above note and agree with findings and plans. I have also personally examined the patient with medicine team and went over assessment and plan with medical team including internet cafe manager and resident physician.
[2024-08-09] MEDS: ONDANSETRON INJ 2 MG/ML INJ 2 ML 4 MG IV (16:48)
--- NOTE | 2024-08-09 17:55 | PC.NURSE ---
Zoila transfer nurse aware of transfer order to [facility].
[2024-08-09 18:47] LABS: Hematocrit 27.8 % (41.0-53.0)
[2024-08-09 19:17] LABS: Hemoglobin 8.7 g/dL (13.5-16.0)
--- NOTE | 2024-08-09 19:21 | PD.IMPROG ---
Documentation for date of: 08/09/24 Subjective Subjective Interval history: 44-year-old male evaluated Case discussed with the internal medicine team Hemoglobin hematocrit did drop down to 6.5 and 20.3 Patient status post band ligation of the internal hemorrhoids Repeat CBC pending Exam Vital Signs Temp Pulse Resp BP Pulse Ox O2 Del Method O2 Flow Rate 96.8 F 86 16 131/70 H 97 Room Air 0 08/09/24 17:30 08/09/24 17:30 08/09/24 17:30 08/09/24 17:30 08/09/24 17:30 08/09/24 16:00 08/09/24 17:30 Objective Labs 08/09/24 18:09 08/09/24 05:31 Labs: Laboratory Results - last 24 hr 08/06/24 08/09/24 08/09/24 07:32 05:31 11:20 WBC 6.0 RBC 2.56 L Hgb 6.5 L* Hct 20.3 L* MCV 79 L MCH 25.4 MCHC 32.0 RDW Std Deviation 63.4 H Plt Count 79 L Neut % (Auto) 80 Lymph % (Auto) 11 [place] % (Auto) 9 Eos % (Auto) 0 Baso % (Auto) 0 Neut # (Auto) 4.8 Lymph # (Auto) 0.7 L [place]att # (Auto) 0.5 Eos # (Auto) 0.0 Baso # (Auto) 0.0 Immature Gran # (Auto) 0.03 H Absolute Nucleated RBC 0.00 Immature Gran % 1 H Nucleated RBC % 0 PT 19.2 H INR 1.8 H APTT 34.2 Sodium 135 L Potassium 4.0 Chloride 107 Carbon Dioxide 20.2 Anion Gap 8 BUN 12 Creatinine 0.7 Estim Creat Clear Calc 120.3 eGFR > 60 BUN/Creatinine Ratio 17 Glucose 135 H D Calculated Osmolality 271 L Calcium 7.1 L Corrected Calcium 8.6 Phosphorus 2.7 Total Bilirubin 11.4 H D AST 46 H ALT 28 Alkaline Phosphatase 88 Total Protein 5.6 L Albumin 2.1 L Globulin 3.5 Albumin/Globulin Ratio 0.6 L Misc Test Result Platelets confirmed Blood Type A Positive Antibody Screen NEGATIVE Crossmatch See Detail See Detail Blood Bank Wristband ID Yes 08/09/24 18:09 WBC RBC Hgb 8.7 L D Hct 27.8 L MCV MCH MCHC RDW Std Deviation Plt Count Neut % (Auto) Lymph % (Auto) [place] % (Auto) Eos % (Auto) Baso % (Auto) Neut # (Auto) Lymph # (Auto) Pratt # (Auto) Eos # (Auto) Baso # (Auto) Immature Gran # (Auto) Absolute Nucleated RBC Immature Gran % Nucleated RBC % PT INR APTT Sodium Potassium Chloride Carbon Dioxide Anion Gap BUN Creatinine Estim Creat Clear Calc eGFR BUN/Creatinine Ratio Glucose Calculated Osmolality Calcium Corrected Calcium Phosphorus Total Bilirubin AST ALT Alkaline Phosphatase Total Protein Albumin Globulin Albumin/Globulin Ratio Misc Test Result Blood Type Antibody Screen Crossmatch Blood Bank Wristband ID Impressions Impression: # Acute posthemorrhagic anemia # Status post band ligation of the large internal hemorrhoids Case discussed with internal medicine team Okay to discharge patient home to be followed by PCP if the hemoglobin hematocrit is stable Assessment & Plan A&P Narrative # Melena # Hematemesis in the setting of cirrhotic liver disease due to alcohol most likely source of bleeding is esophageal variceal bleed or hypertensive portal gastropathy leading to mucosal oozing of blood # Thrombocytopenia # Coagulopathy Plan Agree with the current management with octreotide infusion as well as IV Protonix and blood transfusion Serial CBC N.p.o. Consent obtained for fiberoptic esophagogastroduodenoscopy with possible therapeutic intervention under intravenous moderate sedation Thank you once again for the opportunity to participate in the care of this patient Time Spent With Patient Time: Total time spent is greater than 50% in coordination of care (as documented) at patient's floor/unit and/or counseling patient:
[2024-08-09] MEDS: cefTRIAXone/D5w 1gm IV premix 50 ML IV (20:45)
[2024-08-10] VITALS: BP 122/73; PULSE 78; PULSE 83; RESP 13; TEMP 36.7; O2SAT 97
[2024-08-10 04:00] VITALS: BP 134/75; PULSE 72; PULSE 77; RESP 17; TEMP 36.3; O2SAT 98
[2024-08-10] MEDS: LACTULOSE SYRUP 20 GM/30 ML UDC PO ×2 (05:33→21:19)
[2024-08-10 05:55] LABS: Basophils % (Auto) 0 % (0-2.5); Eosinophils % (Auto) 0 % (0-10); Hematocrit 24.1 % (41.0-53.0); Immature Granulocytes % (Auto) 1 % (0-0); Immature Granulocytes Auto 0.07 Thou/mm3 (0.00-0.00); Lymphocytes % (Auto) 9 % (10-50); Mean Corpuscular Hemoglobin 25.5 pg (25.0-35.0); Mean Corpuscular Volume 80 fL (80-100); Monocytes % (Auto) 9 % (0-12); Neutrophils # (Auto) 8.7 Thou/mm3 (1.8-7.7); Neutrophils % (Auto) 81 % (37-80); Nucleated Red Blood Cell % 0 /100 WBC (0); Platelet Count 114 Thou/mm3 (140-440); RDW Standard Deviation 61.4 fL (35.1-43.9); Red Blood Count 3.02 Miln/mm3 (4.50-5.90); White Blood Count 10.8 Thou/mm3 (3.8-10.6)
[2024-08-10 06:00] VITALS: BMI 26.4
[2024-08-10 06:01] LABS: Hemoglobin 7.7 g/dL (13.5-16.0)
[2024-08-10 06:36] LABS: Alanine Aminotransferase 31 U/L (10-49); Albumin, Serum 2.2 gm/dL (3.5-5.0); Albumin/Globulin Ratio 0.6 (1.2-2.2); Alkaline Phosphatase 87 U/L (46-116); Anion Gap 8 (7-16); Aspartate Amino Transferase 43 U/L (0-34); BUN/Creatinine Ratio 14 Ratio (12-20); Bilirubin,Total 10.8 mg/dL (0.3-1.2); Blood Urea Nitrogen 10 mg/dL (9-23); Calcium 7.5 mg/dL (8.3-10.6); Calcium (Corrected) 8.9 mg/dL (8.5-10.1); Carbon Dioxide 21.6 mMol/L (20.0-31.0); Chloride 105 mMol/L (98-107); Creatinine (Component) 0.7 mg/dL (0.6-1.3); Estimated Creatinine Clearance 120.3 mL/min (>60); Globulin 3.7 gm/dL (2.3-3.5); Glucose 116 mg/dL (74-106); Osmolality,Calculated 270 (275-295); Potassium 4.1 mMol/L (3.4-5.1); Sodium 135 mMol/L (136-145); Total Protein 5.9 gm/dL (5.7-8.2); eGFR > 60 See Note
[2024-08-10 08:00] VITALS: BP 135/80; PULSE 77; PULSE 79; RESP 11; TEMP 36.3; O2SAT 95
[2024-08-10] MEDS: OCTREOTIDE ACET INJ 1,000 MCG in SODIUM CHLORIDE 0.9% 100 ML 5.1 MCG IV (09:19)
[2024-08-10] MEDS: PANTOPRAZOLE INJ 40 MG VIAL IVP ×2 (09:20→20:39)
--- NOTE | 2024-08-10 10:20 | PC.CM ---
Addendum entered by Bharath Morgan RN 08/10/24 18:48: 1848 Called [facility], spoke to Silas and initiated the transfer. Silas stated need prior auth before he even take any information, look for bed or present the case. That's the protocol. It weekend, unable to get auth. Addendum entered by Bharath Morgan RN 08/10/24 18:43: 1843 Due to working on multiple inpatient and ED transfers, unable to work on it until now. Addendum entered by Bharath Morgan RN 08/10/24 10:32: 1023 Called [facility], spoke to Maricruz and initiated the transfer. She stated they are at capacity with [facility] and [facility] have IR but pt would need GI backup and GI is not available until August. That's why transfer request is declined. Addendum entered by Bharath Morgan RN 08/10/24 10:22: [address] Huff pt needs to be transferred for Interventional radiology for embolization of GI bleed. Original Note: 0730 From [facility] transfer center nurse handoff (email) from yesterday I contacted IR adult basic education teacher at [facility] ([facility]) phone # [phone]. She states we will have to have our doctor call and speak to the IR doctor, and they need to speak Dr to to see if they are willing to accept patient. I called [facility] transfer center and I spoke to Nathalie to see if IR was available over the weekend. Nathalie stated they do not have IR available on the weekend. She states we will have to call [facility] on Monday to start the transfer.
[2024-08-10 12:00] VITALS: BP 100/60; PULSE 73; PULSE 84; RESP 13; TEMP 36.4; O2SAT 96
[2024-08-10 12:55] LABS: Hematocrit 26.7 % (41.0-53.0)
[2024-08-10 13:00] LABS: Hemoglobin 8.3 g/dL (13.5-16.0)
--- NOTE | 2024-08-10 13:01 | PD.RESPRO ---
Documentation for date of: 08/10/24 Subjective Subjective Interval history: Patient seen today at the bedside fine awake, alert, oriented x 3. No overnight events reported. States no active complaints at this time. Patient was counseled extensively on the cessation of alcohol. Yesterday afternoon patient had 200 mL hematemesis. Octreotide drip was restarted. Hemoglobin today 7.7 order repeat H&H found to be 8.3 will hold off on transfusions at this time. Patient is still pending transfer to [facility] for IR embolization of GI. Exam Vital Signs Temp Pulse Resp BP Pulse Ox O2 Del Method O2 Flow Rate 97.5 F 84 13 100/60 96 Room Air 0 08/10/24 12:00 08/10/24 12:00 08/10/24 12:00 08/10/24 12:00 08/10/24 12:00 08/10/24 12:00 08/10/24 04:00 Narrative Exam Physical Exam GENERAL: NAD, AAOx3, whole-body jaundice HEENT: Moist mucosa. Scleral icterus CARDIO: Heart RRR, no obvious murmurs PULM: No noted coughing/dyspnea CTA B/L, no R/W/R GI: Abdomen soft, distended, no pain on palpation. BSx4 SKIN/MSK/EXT: no pain on palpation. Pedal pulses present B/L NEURO: AAOx3, no focal neuro deficits, able to move all 4 extremities Objective Labs 08/11/24 06:05 08/11/24 06:05 Labs: Laboratory Results - last 24 hr 08/09/24 08/09/24 08/10/24 11:20 18:09 05:26 WBC 10.8 H D RBC 3.02 L Hgb 8.7 L D 7.7 L Hct 27.8 L 24.1 L MCV 80 MCH 25.5 MCHC 32.0 RDW Std Deviation 61.4 H Plt Count 114 L D Neut % (Auto) 81 H Lymph % (Auto) 9 L [place] % (Auto) 9 Eos % (Auto) 0 Baso % (Auto) 0 Neut # (Auto) 8.7 H Lymph # (Auto) 1.0 [place] # (Auto) 1.0 H Eos # (Auto) 0.0 Baso # (Auto) 0.0 Immature Gran # (Auto) 0.07 H Absolute Nucleated RBC 0.00 Immature Gran % 1 H Nucleated RBC % 0 Sodium 135 L Potassium 4.1 Chloride 105 Carbon Dioxide 21.6 Anion Gap 8 BUN 10 Creatinine 0.7 Estim Creat Clear Calc 120.3 eGFR > 60 BUN/Creatinine Ratio 14 Glucose 116 H Calculated Osmolality 270 L Calcium 7.5 L Corrected Calcium 8.9 Total Bilirubin 10.8 H D AST 43 H ALT 31 Alkaline Phosphatase 87 Total Protein 5.9 Albumin 2.2 L Globulin 3.7 H Albumin/Globulin Ratio 0.6 L Blood Type A Positive Antibody Screen NEGATIVE Crossmatch See Detail Blood Bank Wristband ID Yes 08/10/24 12:30 WBC RBC Hgb 8.3 L Hct 26.7 L MCV MCH MCHC RDW Std Deviation Plt Count Neut % (Auto) Lymph % (Auto) [place] % (Auto) Eos % (Auto) Baso % (Auto) Neut # (Auto) Lymph # (Auto) [place] # (Auto) Eos # (Auto) Baso # (Auto) Immature Gran # (Auto) Absolute Nucleated RBC Immature Gran % Nucleated RBC % Sodium Potassium Chloride Carbon Dioxide Anion Gap BUN Creatinine Estim Creat Clear Calc eGFR BUN/Creatinine Ratio Glucose Calculated Osmolality Calcium Corrected Calcium Total Bilirubin AST ALT Alkaline Phosphatase Total Protein Albumin Globulin Albumin/Globulin Ratio Blood Type Antibody Screen Crossmatch Blood Bank Wristband ID Quality Measures Quality Measures VTE prophylaxis Assessment & Plan Assessment Current Active Medications: Generic Name Dose Route Start Last Admin Trade Name Leightonq PRN Reason Stop Dose Admin Ceftriaxone Sodium/Dextrose 50 mls @ 100 mls/hr 08/04/24 01:05 08/09/24 20:45 Rocephin/D5w 1gm Iv Premix IV 08/11/24 01:04 100 mls/hr DAILY@2100 CATHY Administration Octreotide Acetate 1,000 mcg/ 102 mls @ 5.1 mls/hr 08/10/24 07:48 08/10/24 09:19 Sodium Chloride IV 08/15/24 07:48 50 mcg/hr .Q20H ACTHY 5.1 mls/hr Administration Protocol 50 MCG/HR Lactulose 20 gm 08/06/24 09:30 08/10/24 05:33 Lactulose Syrup 20 Gm/30 Ml Udc PO 09/05/24 09:29 20 gm TID CATHY Administration Protocol Methylprednisolone Sodium Succinate 40 mg 08/06/24 10:15 08/09/24 08:20 Methylprednisolone Sod Succ 40 Mg Vial IVP 08/13/24 10:14 40 mg QDAY CATHY Administration Ondansetron HCl 4 mg 08/04/24 00:25 08/09/24 16:48 Ondansetron Inj 2 Mg/Ml Inj 2 Ml IV 09/03/24 00:24 4 mg Q6H PRN Administration NAUSEA OR VOMITING Protocol Pantoprazole Sodium 40 mg 08/05/24 21:00 08/10/24 09:20 Pantoprazole Inj 40 Mg Vial IVP 09/04/24 20:59 40 mg BID CATHY Administration Pharmacy Consult 1 each 08/04/24 09:00 Pharmacy Renal Dose Adjustment 1 Ea XX 09/03/24 08:59 QDAY PRN protocol Plan 44-year-old male with past medical history of alcohol abuse, alcoholic cirrhosis, status post variceal banding from a GI bleed (09-21-2022) who presented to the ED of 08/03/2024 with a chief complaint of abdominal pain and hematemesis. As patient was actively bleeding and requiring transfusions was admitted to the ICU for concern of shock and possible need of pressors. During ICU stay patient did not require pressors however did require multiple transfusions. GI was consulted had EGD done was found to have esophageal varices grade 2 which were banded, gastritis with hemorrhage. At this time GI recommended completing octreotide drip for 5 days. At this time patient is downgraded to the floors. # Upper GI bleed secondary to # Esophageal varices status post banding # Status post EGD 08/04 with banding #Bright red blood per rectum #Concern for AV malformation Patient endorsed multiple episodes of melena and acute onset hematemesis with bright red blood prior to presentation. The patient does have a prior history of bleeding with endoscopy revealing variceal bleeding which was subsequently banded in 2022. Patient is known to have a long history of EtOH substance abuse with the development of cirrhosis and variceal bleeding. The source of the patient current bleeding is most likely to be variceal in etiology. Patient also endorse NSAID intake over the last several days. Hg/HCT: 4.6/17.0% on admission [place] = 12 points indicating a High Risk GI bleed that is likely to require medical intervention transfusion, endoscopy, or surgery. A higher GBS also correlated with a higher likelihood of needing intervention (scores greater than or equal to 6 are associated with >50% risk of needing intervention) Current hemoglobin of 5, will transfuse 2 PRBCs 1 FFP at this time ordered more units in case of further need of transfusion Patient today had 2 black stools EGD showed pain to and esophageal banding Patient will undergo GoLytely prep for colonoscopy today as patient is stating bright red blood per rectum Colonoscopy showed hemorrhoids nonbleeding CTA showed right colonic bleeding will require transfer for IR embolization -Pending transfer to higher care facility -Continue IV pantoprazole 40 mg twice daily -Continue on octreotide drip -Monitor H&H, transfuse PRBC if hemoglobin less than 7 - GI, Dr. Orozco consulted, appreciate recommendations #Cirrhosis secondary to chronic decompensated alcohol use disorder #Transaminitis #Ascites #Jaundice/scleral icterus Patient with known history of longstanding EtOH substance abuse with cirrhosis as evidenced on CT-A/P. Physical exam notable for jaundice and scleral icterus. LFT: AST 49, ALT 14, Alkaline Phos. 138 MELD-score: 27 points No evidence of Hepatic Encephalopathy on exam Ascites as evidenced on CT A/P, however only a small amount - on ceftriaxone for SBP prophylaxis -Lactulose 20 mg 3 times daily # Alcohol dependence Patient reports drinking alcohol on a daily basis, last drink on 08/03 night. Will continue to monitor for symptoms of withdrawal Patient drinks beer and about a bottle of liquor every day, last drink August 03 -[facility] protocol -Ativan as needed per [facility] protocol -Oral thiamine and folic acid -Referral to social media project manager -Recommend following with Alcoholics Anonymous on discharge, avoid alcohol use. -Follow-up with PCP for possibly obtaining pharmacological options to abstain from alcohol #Acute blood loss anemia #Acute on chronic microcytic anemia #Thrombocytopenia #Coagulopathy H/H on admission: 4.6/17.0%; MCV: 67, Platelets: 78 PT/INR: 21.0/ 2.0 DDX: acute blood loss, hemolysis, chronic inflammation leading to bone marrow supression in setting of chronic EtOH substance abuse Likely acute on chronic due to longstanding EtOH substance use disorder and acute GI bleed EGD 10/04/2022: Normal esophageal mucosa in mid and upper esophagus. Grade 1 esophageal varices in lower third of esophagus. There is an evidence of post banding ulcers in the lower third of esophagus with no evidence of recent bleeding and completely clean-based. Diffuse portal gastropathy. #Lactic Acidosis-resolved Case discussed with my attending Dr. Chaparrita Sheets MD PGY-1 Disposition: Telemetry Fluids: None Feeding: Low-sodium Thrombo prophylaxis: SCDs Gastric Ulcer prophylaxis: Pantoprazole 40 mg IV twice daily CODE STATUS: Full code Attending Provider Attestation/Addendum 44-year-old male with alcohol use disorder with subsequent end-stage liver disease who presented with hematemesis found to have upper GI bleed secondary to esophageal varices status post banding. However, patient started having bright red blood per rectum and underwent CTA which noted right colonic bleeding and thus plan to transfer the patient for IR embolization. Overnight, no acute events and pending transfer. I reviewed above note and agree with findings and plans. I have also personally examined the patient with medicine team and went over assessment and plan with medical team including international travel consultant and resident physician.
[2024-08-10 16:00] VITALS: BP 114/65; PULSE 73; PULSE 80; RESP 15; TEMP 36.4; O2SAT 99
--- NOTE | 2024-08-10 16:03 | ESPR_ITS ---
Documentation for date of: 08/10/24 Subjective Subjective Interval history: Patient evaluated hemoglobin hematocrit 8.3 and 26.7 CTA abdomen and pelvis showed possible bleeding site in the right colon Patient is being transferred at this bed is being worked on for possible embolization of that site Exam Vital Signs Temp Pulse Resp BP Pulse Ox O2 Del Method O2 Flow Rate 97.5 F 84 13 100/60 96 Room Air 0 08/10/24 12:00 08/10/24 12:00 08/10/24 12:00 08/10/24 12:00 08/10/24 12:00 08/10/24 12:00 08/10/24 04:00 Objective Labs 08/10/24 12:30 08/10/24 05:26 Labs: Laboratory Results - last 24 hr 08/09/24 08/09/24 08/10/24 11:20 18:09 05:26 WBC 10.8 H D RBC 3.02 L Hgb 8.7 L D 7.7 L Hct 27.8 L 24.1 L MCV 80 MCH 25.5 MCHC 32.0 RDW Std Deviation 61.4 H Plt Count 114 L D Neut % (Auto) 81 H Lymph % (Auto) 9 L [place] % (Auto) 9 Eos % (Auto) 0 Baso % (Auto) 0 Neut # (Auto) 8.7 H Lymph # (Auto) 1.0 [place] # (Auto) 1.0 H Eos # (Auto) 0.0 Baso # (Auto) 0.0 Immature Gran # (Auto) 0.07 H Absolute Nucleated RBC 0.00 Immature Gran % 1 H Nucleated RBC % 0 Sodium 135 L Potassium 4.1 Chloride 105 Carbon Dioxide 21.6 Anion Gap 8 BUN 10 Creatinine 0.7 Estim Creat Clear Calc 120.3 eGFR > 60 BUN/Creatinine Ratio 14 Glucose 116 H Calculated Osmolality 270 L Calcium 7.5 L Corrected Calcium 8.9 Total Bilirubin 10.8 H D AST 43 H ALT 31 Alkaline Phosphatase 87 Total Protein 5.9 Albumin 2.2 L Globulin 3.7 H Albumin/Globulin Ratio 0.6 L Crossmatch See Detail 08/10/24 12:30 WBC RBC Hgb 8.3 L Hct 26.7 L MCV MCH MCHC RDW Std Deviation Plt Count Neut % (Auto) Lymph % (Auto) [place] % (Auto) Eos % (Auto) Baso % (Auto) Neut # (Auto) Lymph # (Auto) [place] # (Auto) Eos # (Auto) Baso # (Auto) Immature Gran # (Auto) Absolute Nucleated RBC Immature Gran % Nucleated RBC % Sodium Potassium Chloride Carbon Dioxide Anion Gap BUN Creatinine Estim Creat Clear Calc eGFR BUN/Creatinine Ratio Glucose Calculated Osmolality Calcium Corrected Calcium Total Bilirubin AST ALT Alkaline Phosphatase Total Protein Albumin Globulin Albumin/Globulin Ratio Crossmatch Impressions Impression: # GI bleed hemoglobin hematocrit 8.3 26.7 # Abnormal CTA abdomen pelvis showing possible bleed in the right colon Transfer center is working on a transfer for embolization Assessment & Plan A&P Narrative # Melena # Hematemesis in the setting of cirrhotic liver disease due to alcohol most likely source of bleeding is esophageal variceal bleed or hypertensive portal gastropathy leading to mucosal oozing of blood # Thrombocytopenia # Coagulopathy Plan Agree with the current management with octreotide infusion as well as IV Protonix and blood transfusion Serial CBC N.p.o. Consent obtained for fiberoptic esophagogastroduodenoscopy with possible therapeutic intervention under intravenous moderate sedation Thank you once again for the opportunity to participate in the care of this patient Time Spent With Patient Time: Total time spent is greater than 50% in coordination of care (as documented) at patient's floor/unit and/or counseling patient:
[2024-08-10 20:00] VITALS: BP 118/74; PULSE 76; PULSE 83; RESP 18; TEMP 36.4; O2SAT 97
[2024-08-10] MEDS: cefTRIAXone/D5w 1gm IV premix 50 ML IV (20:39)
[2024-08-11] VITALS: BP 125/77; PULSE 60; PULSE 70; RESP 16; TEMP 36.7; O2SAT 98
[2024-08-11 04:00] VITALS: BP 119/76; PULSE 70; PULSE 74; RESP 15; TEMP 36.2; O2SAT 97
[2024-08-11] MEDS: OCTREOTIDE ACET INJ 1,000 MCG in SODIUM CHLORIDE 0.9% 100 ML 5.1 MCG IV (05:07)
[2024-08-11] MEDS: LACTULOSE SYRUP 20 GM/30 ML UDC PO ×3 (05:08→21:54)
[2024-08-11 06:00] VITALS: BMI 26.4
[2024-08-11 06:38] LABS: Basophils # (Auto) 0.1 Thou/mm3 (0.0-0.2); Basophils % (Auto) 1 % (0-2.5); Eosinophils # (Auto) 0.2 Thou/mm3 (0.0-0.5); Eosinophils % (Auto) 2 % (0-10); Hematocrit 26.1 % (41.0-53.0); Immature Granulocytes % (Auto) 1 % (0-0); Immature Granulocytes Auto 0.07 Thou/mm3 (0.00-0.00); Lymphocytes # (Auto) 1.2 Thou/mm3 (1.0-4.8); Lymphocytes % (Auto) 14 % (10-50); Mean Corpuscular HGB Conc 30.7 g/dl (31.0-37.0); Mean Corpuscular Hemoglobin 25.5 pg (25.0-35.0); Mean Corpuscular Volume 83 fL (80-100); Monocytes # (Auto) 0.9 Thou/mm3 (0.0-0.8); Monocytes % (Auto) 11 % (0-12); Neutrophils # (Auto) 5.8 Thou/mm3 (1.8-7.7); Neutrophils % (Auto) 71 % (37-80); Nucleated Red Blood Cell % 0 /100 WBC (0); Platelet Count 110 Thou/mm3 (140-440); RDW Standard Deviation 63.7 fL (35.1-43.9); Red Blood Count 3.14 Miln/mm3 (4.50-5.90); White Blood Count 8.2 Thou/mm3 (3.8-10.6)
[2024-08-11 07:15] LABS: Alanine Aminotransferase 48 U/L (10-49); Albumin, Serum 2.3 gm/dL (3.5-5.0); Albumin/Globulin Ratio 0.6 (1.2-2.2); Alkaline Phosphatase 106 U/L (46-116); Anion Gap 5 (7-16); Aspartate Amino Transferase 82 U/L (0-34); BUN/Creatinine Ratio 13 Ratio (12-20); Bilirubin,Total 12.2 mg/dL (0.3-1.2); Blood Urea Nitrogen 12 mg/dL (9-23); Calcium 7.7 mg/dL (8.3-10.6); Calcium (Corrected) 9.1 mg/dL (8.5-10.1); Carbon Dioxide 23.9 mMol/L (20.0-31.0); Chloride 108 mMol/L (98-107); Creatinine (Component) 0.9 mg/dL (0.6-1.3); Estimated Creatinine Clearance 93.5 mL/min (>60); Globulin 3.9 gm/dL (2.3-3.5); Glucose 106 mg/dL (74-106); Osmolality,Calculated 273 (275-295); Potassium 4.5 mMol/L (3.4-5.1); Sodium 137 mMol/L (136-145); Total Protein 6.2 gm/dL (5.7-8.2); eGFR > 60 See Note
[2024-08-11 08:00] VITALS: BP 107/69; PULSE 80; PULSE 83; RESP 16; RESP 18; TEMP 36.5; O2SAT 96
[2024-08-11] MEDS: PANTOPRAZOLE INJ 40 MG VIAL IVP ×2 (08:44→21:54)
[2024-08-11 12:00] VITALS: BP 107/68; PULSE 78; PULSE 82; RESP 17; TEMP 36.7; O2SAT 95
[2024-08-11 16:00] VITALS: BP 105/63; PULSE 76; PULSE 84; RESP 16; TEMP 36.7; O2SAT 96
--- NOTE | 2024-08-11 16:15 | ESPR_ITS ---
<Statement entered by Oneal Cheatham MD - 08/17/24 13:40> I reviewed above note and agree with findings and plans. I have also personally examined the patient with medicine team and went over assessment and plan with medical team including fall internship and resident physician. Documentation for date of: 08/11/24 Subjective Subjective Interval history: Patient seen today at the bedside fine awake, alert, oriented x 3. No overnight events reported. Hemoglobin stable this a.m., noted slight uptrend in bilirubin, but steroids were withheld due to concern for ongoing GI bleed despite recent banding. Patient is pending transfer for IR embolization of bleeding site in right colon. Reported no active bleeding overnight. Exam Vital Signs Temp Pulse Resp BP Pulse Ox O2 Del Method O2 Flow Rate 98.0 F 78 17 107/68 95 Room Air 0 08/11/24 12:00 08/11/24 12:00 08/11/24 12:00 08/11/24 12:00 08/11/24 12:00 08/11/24 12:00 08/11/24 08:00 Narrative Exam Physical Exam GENERAL: NAD, AAOx3, noted yellow discoloration of the whole body HEENT: Moist mucosa. Scleral icterus CARDIO: Heart RRR, no obvious murmurs PULM: No noted coughing/dyspnea CTA B/L, no R/W/R GI: Abdomen soft, distended, no pain on palpation. BSx4 SKIN/MSK/EXT: no pain on palpation. Pedal pulses present B/L NEURO: AAOx3, no focal neuro deficits, able to move all 4 extremities Objective Labs 08/11/24 06:05 08/11/24 06:05 Labs: Laboratory Results - last 24 hr 08/11/24 06:05 WBC 8.2 RBC 3.14 L Hgb 8.0 L Hct 26.1 L MCV 83 MCH 25.5 MCHC 30.7 L RDW Std Deviation 63.7 H Plt Count 110 L Neut % (Auto) 71 Lymph % (Auto) 14 [place] % (Auto) 11 Eos % (Auto) 2 Baso % (Auto) 1 Neut # (Auto) 5.8 Lymph # (Auto) 1.2 [place] # (Auto) 0.9 H Eos # (Auto) 0.2 Baso # (Auto) 0.1 Immature Gran # (Auto) 0.07 H Absolute Nucleated RBC 0.00 Immature Gran % 1 H Nucleated RBC % 0 Sodium 137 Potassium 4.5 Chloride 108 H Carbon Dioxide 23.9 Anion Gap 5 L BUN 12 Creatinine 0.9 Estim Creat Clear Calc 93.5 eGFR > 60 BUN/Creatinine Ratio 13 Glucose 106 Calculated Osmolality 273 L Calcium 7.7 L Corrected Calcium 9.1 Total Bilirubin 12.2 H D AST 82 H ALT 48 Alkaline Phosphatase 106 D Total Protein 6.2 Albumin 2.3 L Globulin 3.9 H Albumin/Globulin Ratio 0.6 L Quality Measures Quality Measures VTE prophylaxis Assessment & Plan Assessment Current Active Medications: Generic Name Dose Route Start Last Admin Trade Name Freq PRN Reason Stop Dose Admin Octreotide Acetate 1,000 mcg/ 102 mls @ 5.1 mls/hr 08/10/24 07:48 08/11/24 05:07 Sodium Chloride IV 08/15/24 07:48 50 mcg/hr .Q20H CATHY 5.1 mls/hr Administration Protocol 50 MCG/HR Lactulose 20 gm 08/06/24 09:30 08/11/24 13:36 Lactulose Syrup 20 Gm/30 Ml Udc PO 09/05/24 09:29 20 gm TID CATHY Administration Protocol Methylprednisolone Sodium Succinate 40 mg 08/06/24 10:15 08/09/24 08:20 Methylprednisolone Sod Succ 40 Mg Vial IVP 08/13/24 10:14 40 mg QDAY CATHY Administration Ondansetron HCl 4 mg 08/04/24 00:25 08/09/24 16:48 Ondansetron Inj 2 Mg/Ml Inj 2 Ml IV 09/03/24 00:24 4 mg Q6H PRN Administration NAUSEA OR VOMITING Protocol Pantoprazole Sodium 40 mg 08/05/24 21:00 08/11/24 08:44 Pantoprazole Inj 40 Mg Vial IVP 09/04/24 20:59 40 mg BID CATHY Administration Pharmacy Consult 1 each 08/04/24 09:00 Pharmacy Renal Dose Adjustment 1 Ea XX 09/03/24 08:59 QDAY PRN protocol Plan 44-year-old male with past medical history of alcohol abuse, alcoholic cirrhosis, status post variceal banding from a GI bleed (09-21-2022) who presented to the ED of 08/03/2024 with a chief complaint of abdominal pain and hematemesis. As patient was actively bleeding and requiring transfusions was admitted to the ICU for concern of shock and possible need of pressors. During ICU stay patient did not require pressors however did require multiple transfusions. GI was consulted had EGD done was found to have esophageal varices grade 2 which were banded, gastritis with hemorrhage. At this time GI recommended completing octreotide drip for 5 days. At this time patient is downgraded to the floors. # Upper GI bleed secondary to # Esophageal varices status post banding # Status post EGD 08/04 with banding #Bright red blood per rectum #Concern for AV malformation Patient endorsed multiple episodes of melena and acute onset hematemesis with bright red blood prior to presentation. The patient does have a prior history of bleeding with endoscopy revealing variceal bleeding which was subsequently banded in 2022. Patient is known to have a long history of EtOH substance abuse with the development of cirrhosis and variceal bleeding. The source of the patient current bleeding is most likely to be variceal in etiology. Patient also endorse NSAID intake over the last several days. Hg/HCT: 4.6/17.0% on admission [place] = 12 points indicating a High Risk GI bleed that is likely to require medical intervention transfusion, endoscopy, or surgery. A higher GBS also correlated with a higher likelihood of needing intervention (scores greater than or equal to 6 are associated with >50% risk of needing intervention) Current hemoglobin of 5, will transfuse 2 PRBCs 1 FFP at this time ordered more units in case of further need of transfusion Patient today had 2 black stools EGD showed pain to and esophageal banding Patient will undergo GoLytely prep for colonoscopy today as patient is stating bright red blood per rectum Colonoscopy showed hemorrhoids nonbleeding CTA showed right colonic bleeding will require transfer for IR embolization -Pending transfer to higher care facility -Continue IV pantoprazole 40 mg twice daily -Continue on octreotide drip -Monitor H&H, transfuse PRBC if hemoglobin less than 7 - GI, Dr. Orozco consulted, appreciate recommendations #Cirrhosis secondary to chronic decompensated alcohol use disorder #Transaminitis #Ascites #Jaundice/scleral icterus Patient with known history of longstanding EtOH substance abuse with cirrhosis as evidenced on CT-A/P. Physical exam notable for jaundice and scleral icterus. LFT: AST 49, ALT 14, Alkaline Phos. 138 MELD-score: 27 points No evidence of Hepatic Encephalopathy on exam Ascites as evidenced on CT A/P, however only a small amount - on ceftriaxone for SBP prophylaxis -Lactulose 20 mg 3 times daily # Alcohol dependence Patient reports drinking alcohol on a daily basis, last drink on 08/03 night. Will continue to monitor for symptoms of withdrawal Patient drinks beer and about a bottle of liquor every day, last drink August 03 -[facility] protocol -Ativan as needed per [facility] protocol -Oral thiamine and folic acid -Referral to social work job titles -Recommend following with Alcoholics Anonymous on discharge, avoid alcohol use. -Follow-up with PCP for possibly obtaining pharmacological options to abstain from alcohol #Acute blood loss anemia #Acute on chronic microcytic anemia #Thrombocytopenia #Coagulopathy H/H on admission: 4.6/17.0%; MCV: 67, Platelets: 78 PT/INR: 21.0/ 2.0 DDX: acute blood loss, hemolysis, chronic inflammation leading to bone marrow supression in setting of chronic EtOH substance abuse Likely acute on chronic due to longstanding EtOH substance use disorder and acute GI bleed EGD 10/04/2022: Normal esophageal mucosa in mid and upper esophagus. Grade 1 esophageal varices in lower third of esophagus. There is an evidence of post banding ulcers in the lower third of esophagus with no evidence of recent bleeding and completely clean-based. Diffuse portal gastropathy. #Lactic Acidosis-resolved Case discussed with my attending Dr. Chaparrita Conrad [email or web address] Disposition: Telemetry Fluids: None Feeding: Low-sodium Thrombo prophylaxis: SCDs Gastric Ulcer prophylaxis: Pantoprazole 40 mg IV twice daily CODE STATUS: Full code
--- NOTE | 2024-08-11 17:17 | ESPR_ITS ---
Documentation for date of: 08/11/24 Subjective Subjective Interval history: Hemoglobin hematocrit 8.0 and 26.1 Awaiting transfer to tertiary center for possible embolization of the bleed in the right colon Exam Vital Signs Temp Pulse Resp BP Pulse Ox O2 Del Method O2 Flow Rate 98.1 F 76 16 105/63 96 Room Air 0 08/11/24 16:00 08/11/24 16:00 08/11/24 16:00 08/11/24 16:00 08/11/24 16:00 08/11/24 16:00 08/11/24 08:00 Objective Labs 08/11/24 06:05 08/11/24 06:05 Labs: Laboratory Results - last 24 hr 08/11/24 06:05 WBC 8.2 RBC 3.14 L Hgb 8.0 L Hct 26.1 L MCV 83 MCH 25.5 MCHC 30.7 L RDW Std Deviation 63.7 H Plt Count 110 L Neut % (Auto) 71 Lymph % (Auto) 14 [place] % (Auto) 11 Eos % (Auto) 2 Baso % (Auto) 1 Neut # (Auto) 5.8 Lymph # (Auto) 1.2 [place] # (Auto) 0.9 H Eos # (Auto) 0.2 Baso # (Auto) 0.1 Immature Gran # (Auto) 0.07 H Absolute Nucleated RBC 0.00 Immature Gran % 1 H Nucleated RBC % 0 Sodium 137 Potassium 4.5 Chloride 108 H Carbon Dioxide 23.9 Anion Gap 5 L BUN 12 Creatinine 0.9 Estim Creat Clear Calc 93.5 eGFR > 60 BUN/Creatinine Ratio 13 Glucose 106 Calculated Osmolality 273 L Calcium 7.7 L Corrected Calcium 9.1 Total Bilirubin 12.2 H D AST 82 H ALT 48 Alkaline Phosphatase 106 D Total Protein 6.2 Albumin 2.3 L Globulin 3.9 H Albumin/Globulin Ratio 0.6 L Impressions Impression: # Acute posthemorrhagic anemia # Right colonic bleed on a CTA abdomen and pelvis Awaiting transfer Assessment & Plan A&P Narrative # Melena # Hematemesis in the setting of cirrhotic liver disease due to alcohol most likely source of bleeding is esophageal variceal bleed or hypertensive portal gastropathy leading to mucosal oozing of blood # Thrombocytopenia # Coagulopathy Plan Agree with the current management with octreotide infusion as well as IV Protonix and blood transfusion Serial CBC N.p.o. Consent obtained for fiberoptic esophagogastroduodenoscopy with possible therapeutic intervention under intravenous moderate sedation Thank you once again for the opportunity to participate in the care of this patient Time Spent With Patient Time: Total time spent is greater than 50% in coordination of care (as documented) at patient's floor/unit and/or counseling patient:
[2024-08-11 20:00] VITALS: BP 118/80; PULSE 87; PULSE 93; RESP 21; TEMP 36.9; O2SAT 96
[2024-08-12] VITALS (13 sets, daily range): BP systolic 96–135; BP diastolic 56–85; PULSE 76–88; RESP 12–20; TEMP 35.9–37.2; O2SAT 94–99; BMI 26.4
[2024-08-12] MEDS: OCTREOTIDE ACET INJ 1,000 MCG in SODIUM CHLORIDE 0.9% 100 ML 5.1 MCG IV ×2 (00:28→20:11)
[2024-08-12] MEDS: LACTULOSE SYRUP 20 GM/30 ML UDC PO ×3 (05:01→21:29)
[2024-08-12] MEDS: PANTOPRAZOLE INJ 40 MG VIAL IVP ×2 (08:58→21:29)
[2024-08-12 09:25] LABS: Basophils # (Auto) 0.1 Thou/mm3 (0.0-0.2); Basophils % (Auto) 1 % (0-2.5); Eosinophils # (Auto) 0.3 Thou/mm3 (0.0-0.5); Eosinophils % (Auto) 4 % (0-10); Hematocrit 20.7 % (41.0-53.0); Immature Granulocytes % (Auto) 1 % (0-0); Immature Granulocytes Auto 0.09 Thou/mm3 (0.00-0.00); Lymphocytes # (Auto) 1.1 Thou/mm3 (1.0-4.8); Lymphocytes % (Auto) 12 % (10-50); Mean Corpuscular HGB Conc 30.4 g/dl (31.0-37.0); Mean Corpuscular Hemoglobin 25.1 pg (25.0-35.0); Mean Corpuscular Volume 83 fL (80-100); Monocytes # (Auto) 1.1 Thou/mm3 (0.0-0.8); Monocytes % (Auto) 12 % (0-12); Neutrophils # (Auto) 6.1 Thou/mm3 (1.8-7.7); Neutrophils % (Auto) 70 % (37-80); Nucleated Red Blood Cell % 0 /100 WBC (0); Platelet Count 101 Thou/mm3 (140-440); RDW Standard Deviation 63.1 fL (35.1-43.9); Red Blood Count 2.51 Miln/mm3 (4.50-5.90); White Blood Count 8.7 Thou/mm3 (3.8-10.6)
[2024-08-12 09:37] LABS: Anion Gap 7 (7-16); BUN/Creatinine Ratio 15 Ratio (12-20); Blood Urea Nitrogen 12 mg/dL (9-23); Calcium 7.5 mg/dL (8.3-10.6); Carbon Dioxide 22.3 mMol/L (20.0-31.0); Chloride 106 mMol/L (98-107); Creatinine (Component) 0.8 mg/dL (0.6-1.3); Estimated Creatinine Clearance 105.2 mL/min (>60); Glucose 155 mg/dL (74-106); Osmolality,Calculated 272 (275-295); Potassium 3.5 mMol/L (3.4-5.1); Sodium 135 mMol/L (136-145); eGFR > 60 See Note
[2024-08-12 09:46] LABS: Hemoglobin 6.3 g/dL (13.5-16.0)
--- NOTE | 2024-08-12 11:15 | PC.SS ---
Follow up note: Pt is higher level of care transfer
--- NOTE | 2024-08-12 12:04 | PC.CM ---
Addendum entered by Aurelia Woodson RN 08/12/24 18:51: I spoke to [facility] and they stated they will need authorization prior to presenting patient to their doctor. I will be back tomorrow to follow up with insurance auth. Addendum entered by Aurelia Woodson RN 08/12/24 18:09: [facility] is reviewing patient. Packet started and is on transfer nurses desk. Patient was declined by Alissa Matthews [employer], due to capacity. Addendum entered by Aurelia Woodson RN 08/12/24 14:45: 1500 I reached out to [facility] in [place] and I initiated a transfer. I faxed over information. Addendum entered by Aurelia Woodson RN 08/12/24 14:38: 1430 I received a call from Olivia at [facility] and she states patient has been declined due to capacity. Addendum entered by Aurelia Woodson RN 08/12/24 13:12: I received a call back from Mecca with [employer] insurance. Mecca states the Health plan [employer] will be the one to cover cost. I already left a message for Carmelina at [facility]. She has not returned by call. Addendum entered by Aurelia Woodson RN 08/12/24 12:26: I spoke to Shona at [facility]. She also states she would need auth prior to reaching out to a doctor. I let her know I did each out to [facility]/ and [facility]. Shona states they are at capacity and she declined patient due to capacity. Original Note: 1200 I see that patient also has [employer] health Utilization management so I called and left a message for Mecca at [phone]. I asked her to call me back to discuss transfer for this patient. 1010 I reviewed notes and I saw that [facility] was contacted and they want us to get authorization prior to reviewing patient. I contacted Carmelina cope [facility] phone number [phone]. I left a detailed message stating patient needs to be transferred.
[2024-08-12] MEDS: cefTRIAXone/D5w 1gm IV premix 50 ML IV (14:21)
[2024-08-12 14:46] LABS: Hematocrit 22.8 % (41.0-53.0)
[2024-08-12 15:06] LABS: Hemoglobin 7.2 g/dL (13.5-16.0)
--- NOTE | 2024-08-12 21:39 | PD.IMPROG ---
Documentation for date of: 08/12/24 Subjective Subjective Interval history: Hemoglobin hematocrit 6.3 and 20.7 patient had a bloody bowel movement according to him Hemoglobin did drop requiring blood transfusion now back up to 7.2 and 22.8 Transfer center is trying for a transfer to a tertiary center for embolization of the right colonic bleed Exam Vital Signs Temp Pulse Resp BP Pulse Ox O2 Del Method O2 Flow Rate 97.7 F 84 20 110/60 97 Room Air 0 08/12/24 20:00 08/12/24 20:00 08/12/24 20:00 08/12/24 20:00 08/12/24 20:00 08/12/24 20:00 08/12/24 12:58 Objective Labs 08/12/24 14:27 08/12/24 08:53 Labs: Laboratory Results - last 24 hr 08/09/24 08/12/24 08/12/24 11:20 08:53 10:57 WBC 8.7 RBC 2.51 L Hgb 6.3 L* D Hct 20.7 L* MCV 83 MCH 25.1 MCHC 30.4 L RDW Std Deviation 63.1 H Plt Count 101 L Neut % (Auto) 70 Lymph % (Auto) 12 [place] % (Auto) 12 Eos % (Auto) 4 Baso % (Auto) 1 Neut # (Auto) 6.1 Lymph # (Auto) 1.1 [place] # (Auto) 1.1 H Eos # (Auto) 0.3 Baso # (Auto) 0.1 Immature Gran # (Auto) 0.09 H Absolute Nucleated RBC 0.00 Immature Gran % 1 H Nucleated RBC % 0 Sodium 135 L Potassium 3.5 D Chloride 106 Carbon Dioxide 22.3 Anion Gap 7 BUN 12 Creatinine 0.8 Estim Creat Clear Calc 105.2 eGFR > 60 BUN/Creatinine Ratio 15 Glucose 155 H Calculated Osmolality 272 L Calcium 7.5 L Blood Type A Positive A Positive Antibody Screen NEGATIVE POSITIVE Crossmatch See Detail See Detail Blood Bank Wristband ID Yes Yes 08/12/24 14:27 WBC RBC Hgb 7.2 L Hct 22.8 L MCV MCH MCHC RDW Std Deviation Plt Count Neut % (Auto) Lymph % (Auto) [place] % (Auto) Eos % (Auto) Baso % (Auto) Neut # (Auto) Lymph # (Auto) [place] # (Auto) Eos # (Auto) Baso # (Auto) Immature Gran # (Auto) Absolute Nucleated RBC Immature Gran % Nucleated RBC % Sodium Potassium Chloride Carbon Dioxide Anion Gap BUN Creatinine Estim Creat Clear Calc eGFR BUN/Creatinine Ratio Glucose Calculated Osmolality Calcium Blood Type Antibody Screen Crossmatch Blood Bank Wristband ID Impressions Impression: # Right colonic bleed # acute posthemorrhagic anemia requiring blood transfusion Continue current management Keep working on the transfer Assessment & Plan A&P Narrative # Melena # Hematemesis in the setting of cirrhotic liver disease due to alcohol most likely source of bleeding is esophageal variceal bleed or hypertensive portal gastropathy leading to mucosal oozing of blood # Thrombocytopenia # Coagulopathy Plan Agree with the current management with octreotide infusion as well as IV Protonix and blood transfusion Serial CBC N.p.o. Consent obtained for fiberoptic esophagogastroduodenoscopy with possible therapeutic intervention under intravenous moderate sedation Thank you once again for the opportunity to participate in the care of this patient Time Spent With Patient Time: Total time spent is greater than 50% in coordination of care (as documented) at patient's floor/unit and/or counseling patient:
[2024-08-13] VITALS (9 sets, daily range): BP systolic 92–120; BP diastolic 62–73; PULSE 82–97; RESP 13–22; TEMP 36.3–37.1; O2SAT 96–98; BMI 26.4
[2024-08-13 06:28] LABS: Basophils # (Auto) 0.2 Thou/mm3 (0.0-0.2); Basophils % (Auto) 1 % (0-2.5); Eosinophils # (Auto) 0.3 Thou/mm3 (0.0-0.5); Eosinophils % (Auto) 2 % (0-10); Hematocrit 20.4 % (41.0-53.0); Immature Granulocytes % (Auto) 2 % (0-0); Immature Granulocytes Auto 0.29 Thou/mm3 (0.00-0.00); Lymphocytes # (Auto) 1.3 Thou/mm3 (1.0-4.8); Lymphocytes % (Auto) 8 % (10-50); Mean Corpuscular HGB Conc 31.9 g/dl (31.0-37.0); Mean Corpuscular Hemoglobin 26.5 pg (25.0-35.0); Mean Corpuscular Volume 83 fL (80-100); Monocytes % (Auto) 11 % (0-12); Neutrophils # (Auto) 13.6 Thou/mm3 (1.8-7.7); Neutrophils % (Auto) 77 % (37-80); Nucleated Red Blood Cell % 0 /100 WBC (0); Platelet Count 130 Thou/mm3 (140-440); RDW Standard Deviation 60.8 fL (35.1-43.9); Red Blood Count 2.45 Miln/mm3 (4.50-5.90); White Blood Count 17.7 Thou/mm3 (3.8-10.6)
[2024-08-13] MEDS: LACTULOSE SYRUP 20 GM/30 ML UDC PO ×2 (06:45→21:03)
[2024-08-13 06:56] LABS: Hemoglobin 6.5 g/dL (13.5-16.0)
--- NOTE | 2024-08-13 07:22 | ESPR_ITS ---
Documentation for date of: 08/12/24 Subjective Subjective Interval history: Patient evaluated up at bedside, reported bright red bowel movement this a.m., maintaining vitals, currently on octreotide drip, hemoglobin 6.3, ordered 2 PRBCs, unfortunately only 1 PRBC available at this point, second 1 is on order from blood bank [facility], will transfuse as soon as available. H&H post 1 PRBC transfusion 7.2, patient is still pending transfer, transfer insulin updated that she will reach out to, [facility] interventional radiology Exam Vital Signs Temp Pulse Resp BP Pulse Ox O2 Del Method O2 Flow Rate 97.1 F 91 19 112/68 97 Room Air 0 08/12/24 23:56 08/13/24 00:00 08/12/24 23:56 08/12/24 23:56 08/12/24 23:56 08/12/24 23:56 08/12/24 12:58 Narrative Exam Physical Exam GENERAL: NAD, AAOx3, noted yellow discoloration of the whole body HEENT: Moist mucosa. Scleral icterus CARDIO: Heart RRR, no obvious murmurs PULM: No noted coughing/dyspnea CTA B/L, no R/W/R GI: Abdomen soft, distended, no pain on palpation. BSx4 SKIN/MSK/EXT: no pain on palpation. Pedal pulses present B/L NEURO: AAOx3, no focal neuro deficits, able to move all 4 extremities Objective Labs 08/14/24 04:30 08/12/24 08:53 Labs: Laboratory Results - last 24 hr 08/09/24 08/12/24 08/12/24 11:20 08:53 10:57 WBC 8.7 RBC 2.51 L Hgb 6.3 L* D Hct 20.7 L* MCV 83 MCH 25.1 MCHC 30.4 L RDW Std Deviation 63.1 H Plt Count 101 L Neut % (Auto) 70 Lymph % (Auto) 12 [place] % (Auto) 12 Eos % (Auto) 4 Baso % (Auto) 1 Neut # (Auto) 6.1 Lymph # (Auto) 1.1 [place] # (Auto) 1.1 H Eos # (Auto) 0.3 Baso # (Auto) 0.1 Immature Gran # (Auto) 0.09 H Absolute Nucleated RBC 0.00 Immature Gran % 1 H Nucleated RBC % 0 Sodium 135 L Potassium 3.5 D Chloride 106 Carbon Dioxide 22.3 Anion Gap 7 BUN 12 Creatinine 0.8 Estim Creat Clear Calc 105.2 eGFR > 60 BUN/Creatinine Ratio 15 Glucose 155 H Calculated Osmolality 272 L Calcium 7.5 L Blood Type A Positive A Positive Antibody Screen NEGATIVE POSITIVE Crossmatch See Detail See Detail Blood Bank Wristband ID Yes Yes 08/12/24 08/13/24 14:27 04:37 WBC 17.7 H D RBC 2.45 L Hgb 7.2 L 6.5 L* Hct 22.8 L 20.4 L* MCV 83 MCH 26.5 MCHC 31.9 RDW Std Deviation 60.8 H Plt Count 130 L D Neut % (Auto) 77 Lymph % (Auto) 8 L [place] % (Auto) 11 Eos % (Auto) 2 Baso % (Auto) 1 Neut # (Auto) 13.6 H Lymph # (Auto) 1.3 [place] # (Auto) 2.0 H Eos # (Auto) 0.3 Baso # (Auto) 0.2 Immature Gran # (Auto) 0.29 H Absolute Nucleated RBC 0.00 Immature Gran % 2 H Nucleated RBC % 0 Sodium Potassium Chloride Carbon Dioxide Anion Gap BUN Creatinine Estim Creat Clear Calc eGFR BUN/Creatinine Ratio Glucose Calculated Osmolality Calcium Blood Type Antibody Screen Crossmatch Blood Bank Wristband ID Quality Measures Quality Measures VTE prophylaxis Assessment & Plan Assessment Current Active Medications: Generic Name Dose Route Start Last Admin Trade Name Freq PRN Reason Stop Dose Admin Octreotide Acetate 1,000 mcg/ 102 mls @ 5.1 mls/hr 08/10/24 07:48 08/12/24 20:11 Sodium Chloride IV 08/15/24 07:48 50 mcg/hr .Q20H CATHY 5.1 mls/hr Administration Protocol 50 MCG/HR Ceftriaxone Sodium/Dextrose 50 mls @ 100 mls/hr 08/12/24 11:58 08/12/24 14:21 Rocephin/D5w 1gm Iv Premix IV 08/19/24 11:57 100 mls/hr QDAY CATHY Administration Lactulose 20 gm 08/06/24 09:30 08/12/24 21:29 Lactulose Syrup 20 Gm/30 Ml Udc PO 09/05/24 09:29 20 gm TID CATHY Administration Protocol Methylprednisolone Sodium Succinate 40 mg 08/06/24 10:15 08/09/24 08:20 Methylprednisolone Sod Succ 40 Mg Vial IVP 08/13/24 10:14 40 mg QDAY CATHY Administration Ondansetron HCl 4 mg 08/04/24 00:25 08/09/24 16:48 Ondansetron Inj 2 Mg/Ml Inj 2 Ml IV 09/03/24 00:24 4 mg Q6H PRN Administration NAUSEA OR VOMITING Protocol Pantoprazole Sodium 40 mg 08/05/24 21:00 08/12/24 21:29 Pantoprazole Inj 40 Mg Vial IVP 09/04/24 20:59 40 mg BID CATHY Administration Pharmacy Consult 1 each 08/04/24 09:00 Pharmacy Renal Dose Adjustment 1 Ea XX 09/03/24 08:59 QDAY PRN protocol Plan 44-year-old male with past medical history of alcohol abuse, alcoholic cirrhosis, status post variceal banding from a GI bleed (09-21-2022) who presented to the ED of 08/03/2024 with a chief complaint of abdominal pain and hematemesis. As patient was actively bleeding and requiring transfusions was admitted to the ICU for concern of shock and possible need of pressors. During ICU stay patient did not require pressors however did require multiple transfusions. GI was consulted had EGD done was found to have esophageal varices grade 2 which were banded, gastritis with hemorrhage. At this time GI recommended completing octreotide drip for 5 days. At this time patient is downgraded to the floors. # Upper GI bleed secondary to # Esophageal varices status post banding # Status post EGD 08/04 with banding #Bright red blood per rectum #Concern for AV malformation Patient endorsed multiple episodes of melena and acute onset hematemesis with bright red blood prior to presentation. The patient does have a prior history of bleeding with endoscopy revealing variceal bleeding which was subsequently banded in 2022. Patient is known to have a long history of EtOH substance abuse with the development of cirrhosis and variceal bleeding. The source of the patient current bleeding is most likely to be variceal in etiology. Patient also endorse NSAID intake over the last several days. Hg/HCT: 4.6/17.0% on admission Thatcher-[place] = 12 points indicating a High Risk GI bleed that is likely to require medical intervention transfusion, endoscopy, or surgery. A higher GBS also correlated with a higher likelihood of needing intervention (scores greater than or equal to 6 are associated with >50% risk of needing intervention) Current hemoglobin of 5, will transfuse 2 PRBCs 1 FFP at this time ordered more units in case of further need of transfusion Patient today had 2 black stools EGD showed pain to and esophageal banding Patient will undergo GoLytely prep for colonoscopy today as patient is stating bright red blood per rectum Colonoscopy showed hemorrhoids nonbleeding CTA showed right colonic bleeding will require transfer for IR embolization -Pending transfer to higher care facility -Continue IV pantoprazole 40 mg twice daily -Continue on octreotide drip -Monitor H&H, transfuse PRBC if hemoglobin less than 7 - GI, Dr. Orozco consulted, appreciate recommendations #Cirrhosis secondary to chronic decompensated alcohol use disorder #Transaminitis #Ascites #Jaundice/scleral icterus Patient with known history of longstanding EtOH substance abuse with cirrhosis as evidenced on CT-A/P. Physical exam notable for jaundice and scleral icterus. LFT: AST 49, ALT 14, Alkaline Phos. 138 MELD-score: 27 points No evidence of Hepatic Encephalopathy on exam Ascites as evidenced on CT A/P, however only a small amount - on ceftriaxone for SBP prophylaxis -Lactulose 20 mg 3 times daily # Alcohol dependence Patient reports drinking alcohol on a daily basis, last drink on 08/03 night. Will continue to monitor for symptoms of withdrawal Patient drinks beer and about a bottle of liquor every day, last drink August 03 -[facility] protocol -Ativan as needed per CIVA protocol -Oral thiamine and folic acid -Referral to social insurance specialist -Recommend following with Alcoholics Anonymous on discharge, avoid alcohol use. -Follow-up with PCP for possibly obtaining pharmacological options to abstain from alcohol #Acute blood loss anemia #Acute on chronic microcytic anemia #Thrombocytopenia #Coagulopathy H/H on admission: 4.6/17.0%; MCV: 67, Platelets: 78 PT/INR: 21.0/ 2.0 DDX: acute blood loss, hemolysis, chronic inflammation leading to bone marrow supression in setting of chronic EtOH substance abuse Likely acute on chronic due to longstanding EtOH substance use disorder and acute GI bleed EGD 10/04/2022: Normal esophageal mucosa in mid and upper esophagus. Grade 1 esophageal varices in lower third of esophagus. There is an evidence of post banding ulcers in the lower third of esophagus with no evidence of recent bleeding and completely clean-based. Diffuse portal gastropathy. #Lactic Acidosis-resolved Case discussed with my attending Dr. Martínez Conrad [email or web address] Disposition: Telemetry Fluids: None Feeding: Low-sodium Thrombo prophylaxis: SCDs Gastric Ulcer prophylaxis: Pantoprazole 40 mg IV twice daily CODE STATUS: Full code Attending Provider Attestation/Addendum Netta Root, , attest that I was physically present for the cisneros portions of the service and evaluated the patient with the resident and I reviewed and discussed the case with the resident and agree with the resident's findings and plans of care as documented above Patient seen and evaluated this AM. Patient complains of abdominal bloating causing him to feel nauseous. Patient induced himself to vomit and noted some bloody streaks. Patient also continues to have melanotic stools. Hgb dropped again, will transfuse 1 unit of pRBCs. Pending transfer for IR embolization. GI notified regarding persistent acute blood loss anemia. Patient reports improvement of nausea after antiemetic.
[2024-08-13 07:44] LABS: Alanine Aminotransferase 45 U/L (10-49); Albumin, Serum 1.9 gm/dL (3.5-5.0); Alkaline Phosphatase 92 U/L (46-116); Aspartate Amino Transferase 67 U/L (0-34); Bilirubin,Direct 8.7 mg/dL (0.0-0.3); Bilirubin,Total 11.8 mg/dL (0.3-1.2); Total Protein 5.2 gm/dL (5.7-8.2)
[2024-08-13] MEDS: ONDANSETRON INJ 2 MG/ML INJ 2 ML 4 MG IV (07:49)
[2024-08-13] MEDS: cefTRIAXone/D5w 1gm IV premix 50 ML IV (08:19)
[2024-08-13] MEDS: PANTOPRAZOLE INJ 40 MG VIAL IVP ×2 (08:19→20:58)
--- NOTE | 2024-08-13 08:53 | PC.NURSE ---
[facility] 0[facility] 0700.
[2024-08-13] MEDS: PROMETHAZINE INJ 12.5 MG in SODIUM CHLORIDE 0.9% 50 ML 2.5 MG IV (09:13)
--- NOTE | 2024-08-13 13:55 | PC.CM ---
Addendum entered by Aurelia Woodson RN 08/13/24 19:09: Patient needs transfer for IR services for embolization of GI bleed. Patient was declined by Shayna Matthews, and Alissa, due to capacity. [facility] in [place] accepted patient with Dr. Cuco España. Cornel provided me with the information provided below to initiate transfer authorization. Please call Rosamaria [employer] prior auth number at [phone] and provide the information below. ?Transfer packet started with CD and left on transfer nurse desk. ?Packet started and left on transfer nurse desk. ?[facility] NPI is [id number] [facility] Tax ID [id number] [address] [place] [address] [id number]?oRbert Ye MD (IM/HP) Addendum entered by Aurelia Woodson RN 08/13/24 15:35: I received a call back from Cornel at [facility]. She states she tried to call Dr. Conrad to do a peer to peer and he did not answer. I called Dr. Conrad on another line and he answered me. I let him know that Cornel from [facility] was going to be calling him if a bit. I called [facility] and asked them to make a CD for patient. I undated packet. Addendum entered by Aurelia Woodson RN 08/13/24 14:06: I spoke Cornel at [facility] and I faxed over updated information. Original Note: [id number] Carmelina with [employer] called me back and she states she gives auth for patient to [facility] in [place]. I called [facility] and I let them know that I spoke to Carmelina. I provided them with the phone number. [phone] I spoke to [facility] and they asked me to get authorization prior to them reviewing patient. I called and left a message with Carmelina with [facility] phone # [phone].
[2024-08-13 14:29] LABS: Hematocrit 22.3 % (41.0-53.0)
[2024-08-13 14:30] LABS: Hemoglobin 7.4 g/dL (13.5-16.0)
[2024-08-13] MEDS: OCTREOTIDE ACET INJ 1,000 MCG in SODIUM CHLORIDE 0.9% 100 ML 5.1 MCG IV (18:04)
--- NOTE | 2024-08-13 20:06 | PD.IMPROG ---
Documentation for date of: 08/13/24 Subjective Subjective Interval history: Hemoglobin dropped to 6.5 and 20.4 with patient having melanotic stools Exam Vital Signs Temp Pulse Resp BP Pulse Ox O2 Del Method O2 Flow Rate 97.6 F 83 16 110/66 96 Room Air 0 08/13/24 16:00 08/13/24 16:00 08/13/24 16:00 08/13/24 16:00 08/13/24 16:00 08/13/24 16:00 08/13/24 12:01 Objective Labs 08/13/24 13:43 08/12/24 08:53 Labs: Laboratory Results - last 24 hr 08/12/24 08/13/24 08/13/24 10:57 04:37 13:43 WBC 17.7 H D RBC 2.45 L Hgb 6.5 L* 7.4 L Hct 20.4 L* 22.3 L MCV 83 MCH 26.5 MCHC 31.9 RDW Std Deviation 60.8 H Plt Count 130 L D Neut % (Auto) 77 Lymph % (Auto) 8 L [place] % (Auto) 11 Eos % (Auto) 2 Baso % (Auto) 1 Neut # (Auto) 13.6 H Lymph # (Auto) 1.3 [place] # (Auto) 2.0 H Eos # (Auto) 0.3 Baso # (Auto) 0.2 Immature Gran # (Auto) 0.29 H Absolute Nucleated RBC 0.00 Immature Gran % 2 H Nucleated RBC % 0 Total Bilirubin 11.8 H Direct Bilirubin 8.7 H AST 67 H ALT 45 Alkaline Phosphatase 92 Total Protein 5.2 L Albumin 1.9 L Blood Type A Positive Antibody Screen POSITIVE Crossmatch See Detail Blood Bank Wristband ID Yes Impressions Impression: Ongoing GI bleeding. Agree with the blood transfusion IAlthough the CAT scan shows a bleed in the right colon if he continues to bleed I will most likely do a repeat endoscopy tomorrow Assessment & Plan A&P Narrative # Melena # Hematemesis in the setting of cirrhotic liver disease due to alcohol most likely source of bleeding is esophageal variceal bleed or hypertensive portal gastropathy leading to mucosal oozing of blood # Thrombocytopenia # Coagulopathy Plan Agree with the current management with octreotide infusion as well as IV Protonix and blood transfusion Serial CBC N.p.o. Consent obtained for fiberoptic esophagogastroduodenoscopy with possible therapeutic intervention under intravenous moderate sedation Thank you once again for the opportunity to participate in the care of this patient Time Spent With Patient Time: Total time spent is greater than 50% in coordination of care (as documented) at patient's floor/unit and/or counseling patient:
[2024-08-14] VITALS (11 sets, daily range): BP systolic 96–120; BP diastolic 55–75; PULSE 60–81; RESP 15–20; TEMP 36.1–36.5; O2SAT 96–99
[2024-08-14] MEDS: LACTULOSE SYRUP 20 GM/30 ML UDC PO ×3 (05:18→21:07)
[2024-08-14 06:42] LABS: Basophils % (Auto) 0 % (0-2.5); Eosinophils % (Auto) 0 % (0-10); Hematocrit 21.8 % (41.0-53.0); Immature Granulocytes % (Auto) 2 % (0-0); Immature Granulocytes Auto 0.36 Thou/mm3 (0.00-0.00); Lymphocytes # (Auto) 1.1 Thou/mm3 (1.0-4.8); Lymphocytes % (Auto) 6 % (10-50); Mean Corpuscular Hemoglobin 27.5 pg (25.0-35.0); Mean Corpuscular Volume 83 fL (80-100); Monocytes % (Auto) 6 % (0-12); Neutrophils # (Auto) 15.3 Thou/mm3 (1.8-7.7); Neutrophils % (Auto) 86 % (37-80); Nucleated Red Blood Cell % 0 /100 WBC (0); Platelet Count 146 Thou/mm3 (140-440); RDW Standard Deviation 58.4 fL (35.1-43.9); Red Blood Count 2.62 Miln/mm3 (4.50-5.90); White Blood Count 17.8 Thou/mm3 (3.8-10.6)
[2024-08-14 06:43] LABS: Hemoglobin 7.2 g/dL (13.5-16.0)
--- NOTE | 2024-08-14 07:19 | PC.CM ---
Addendum entered by Dennys Lutz RN 08/14/24 07:33: 0730- Call to [facility], spoke with ZORAIDA Phillip and provided authorization number [id number] from [facility], she stated she will review case with the hospitalist team and will notify us if patient is accepted and if they have a bed available. Will wait to hear from [facility]. Original Note: 07- Call to [facility] [phone], spoke to Guido Kiran in the authorization department to request prior authorization and provide them with NPI and Tax ID for [facility] as well as accepting MDs information and NPI. Provided them with Phone number and fax number for [facility]. Case # [id number] to be provided to [facility] and instruct them to fax medial records to [facility]amaria Hall once patient is in their care with case number attatched.
[2024-08-14 07:27] LABS: Alanine Aminotransferase 46 U/L (10-49); Alkaline Phosphatase 92 U/L (46-116); Aspartate Amino Transferase 54 U/L (0-34); Bilirubin,Direct 9.3 mg/dL (0.0-0.3); Bilirubin,Total 12.8 mg/dL (0.3-1.2); Total Protein 5.5 gm/dL (5.7-8.2)
[2024-08-14] MEDS: PANTOPRAZOLE INJ 40 MG VIAL IVP ×2 (09:28→20:35)
[2024-08-14] MEDS: cefTRIAXone/D5w 1gm IV premix 50 ML IV (09:31)
--- NOTE | 2024-08-14 11:46 | PC.SS ---
Follow up note: Pt is waiting for higher level of care transfer. Pt is receiving a unit of blood.
[2024-08-14] MEDS: OCTREOTIDE ACET INJ 1,000 MCG in SODIUM CHLORIDE 0.9% 100 ML 5.1 MCG IV (16:48)
--- NOTE | 2024-08-14 17:18 | ESPR_ITS ---
Documentation for date of: 08/14/24 Subjective Subjective Interval history: Patient seen at bedside today. Still resting comfortably and without complaints. Appears that hematemesis has resolved. We will await Dr. Orozco's recommendation in regards to repeat EGD. Hemoglobin continued to downtrend today at 7.2 and patient received 1 unit PRBCs. Posttransfusion H&H is pending. Awaiting information from [facility] if patient is accepted for transfer. Patient has received over 10 PRBCs during this hospitalization. Exam Vital Signs Temp Pulse Resp BP Pulse Ox O2 Del Method O2 Flow Rate 97.2 F 81 18 115/69 98 Room Air 0 08/14/24 12:17 08/14/24 16:00 08/14/24 12:17 08/14/24 12:17 08/14/24 12:17 08/14/24 12:00 08/14/24 12:17 Narrative Exam Physical Exam GENERAL: NAD, AAOx3, noted yellow discoloration of the whole body HEENT: Moist mucosa. Scleral icterus CARDIO: Heart RRR, no obvious murmurs PULM: No noted coughing/dyspnea CTA B/L, no R/W/R GI: Abdomen soft, distended, no pain on palpation. BSx4 SKIN/MSK/EXT: no pain on palpation. Pedal pulses present B/L NEURO: AAOx3, no focal neuro deficits, able to move all 4 extremities Objective Labs 08/14/24 19:24 08/12/24 08:53 Labs: Laboratory Results - last 24 hr 08/12/24 08/14/24 10:57 04:30 WBC 17.8 H RBC 2.62 L Hgb 7.2 L Hct 21.8 L* MCV 83 MCH 27.5 MCHC 33.0 RDW Std Deviation 58.4 H Plt Count 146 Neut % (Auto) 86 H Lymph % (Auto) 6 L [place] % (Auto) 6 Eos % (Auto) 0 Baso % (Auto) 0 Neut # (Auto) 15.3 H Lymph # (Auto) 1.1 [place] # (Auto) 1.0 H Eos # (Auto) 0.0 Baso # (Auto) 0.0 Immature Gran # (Auto) 0.36 H Absolute Nucleated RBC 0.00 Immature Gran % 2 H Nucleated RBC % 0 Total Bilirubin 12.8 H D Direct Bilirubin 9.3 H AST 54 H ALT 46 Alkaline Phosphatase 92 Total Protein 5.5 L Albumin 2.0 L Blood Type A Positive Antibody Screen POSITIVE Crossmatch See Detail Blood Bank Wristband ID Yes Quality Measures Quality Measures VTE prophylaxis Assessment & Plan Assessment Current Active Medications: Generic Name Dose Route Start Last Admin Trade Name Freq PRN Reason Stop Dose Admin Octreotide Acetate 1,000 mcg/ 102 mls @ 5.1 mls/hr 08/10/24 07:48 08/14/24 16:48 Sodium Chloride IV 08/15/24 07:48 50 mcg/hr .Q20H CATHY 5.1 mls/hr Administration Protocol 50 MCG/HR Ceftriaxone Sodium/Dextrose 50 mls @ 100 mls/hr 08/12/24 11:58 08/14/24 09:31 Rocephin/D5w 1gm Iv Premix IV 08/19/24 11:57 100 mls/hr QDAY CATHY Administration Lactulose 20 gm 08/06/24 09:30 08/14/24 13:44 Lactulose Syrup 20 Gm/30 Ml Udc PO 09/05/24 09:29 20 gm TID CATHY Administration Protocol Ondansetron HCl 4 mg 08/04/24 00:25 08/13/24 07:49 Ondansetron Inj 2 Mg/Ml Inj 2 Ml IV 09/03/24 00:24 4 mg Q6H PRN Administration NAUSEA OR VOMITING Protocol Pantoprazole Sodium 40 mg 08/05/24 21:00 08/14/24 09:28 Pantoprazole Inj 40 Mg Vial IVP 09/04/24 20:59 40 mg BID CATHY Administration Pharmacy Consult 1 each 08/04/24 09:00 Pharmacy Renal Dose Adjustment 1 Ea XX 09/03/24 08:59 QDAY PRN protocol Plan 44-year-old male with past medical history of alcohol abuse, alcoholic cirrhosis, status post variceal banding from a GI bleed (09-21-2022) who presented to the ED of 08/03/2024 with a chief complaint of abdominal pain and hematemesis. As patient was actively bleeding and requiring transfusions was admitted to the ICU for concern of shock and possible need of pressors. During ICU stay patient did not require pressors however did require multiple transfusions. GI was consulted had EGD done was found to have esophageal varices grade 2 which were banded, gastritis with hemorrhage. At this time GI recommended completing octreotide drip for 5 days. At this time patient is downgraded to the floors. # Upper GI bleed secondary to # Esophageal varices status post banding # Status post EGD 08/04 with banding #Bright red blood per rectum #Concern for AV malformation Patient endorsed multiple episodes of melena and acute onset hematemesis with bright red blood prior to presentation. The patient does have a prior history of bleeding with endoscopy revealing variceal bleeding which was subsequently banded in 2022. Patient is known to have a long history of EtOH substance abuse with the development of cirrhosis and variceal bleeding. The source of the patient current bleeding is most likely to be variceal in etiology. Patient also endorse NSAID intake over the last several days. Hg/HCT: 4.6/17.0% on admission [place] = 12 points indicating a High Risk GI bleed that is likely to require medical intervention transfusion, endoscopy, or surgery. A higher GBS also correlated with a higher likelihood of needing intervention (scores greater than or equal to 6 are associated with >50% risk of needing intervention) Current hemoglobin of 5, will transfuse 2 PRBCs 1 FFP at this time ordered more units in case of further need of transfusion Patient today had 2 black stools EGD showed pain to and esophageal banding Patient will undergo GoLytely prep for colonoscopy today as patient is stating bright red blood per rectum Colonoscopy showed hemorrhoids nonbleeding CTA showed right colonic bleeding will require transfer for IR embolization -Pending transfer to higher care facility -Continue IV pantoprazole 40 mg twice daily -Continue on octreotide drip -Monitor H&H, transfuse PRBC if hemoglobin less than 7 - GI, Dr. Orozco consulted, appreciate recommendations, who may consider repeat EGD again due to the right-sided bleed., Currently getting 1 unit PRBCs and will follow-up with H&H. #Cirrhosis secondary to chronic decompensated alcohol use disorder #Transaminitis #Ascites #Jaundice/scleral icterus Patient with known history of longstanding EtOH substance abuse with cirrhosis as evidenced on CT-A/P. Physical exam notable for jaundice and scleral icterus. LFT: AST 49, ALT 14, Alkaline Phos. 138 MELD-score: 27 points No evidence of Hepatic Encephalopathy on exam Ascites as evidenced on CT A/P, however only a small amount - on ceftriaxone for SBP prophylaxis -Lactulose 20 mg 3 times daily # Alcohol dependence Patient reports drinking alcohol on a daily basis, last drink on 08/03 night. Will continue to monitor for symptoms of withdrawal Patient drinks beer and about a bottle of liquor every day, last drink August 03 -[facility] protocol -Ativan as needed per [facility] protocol -Oral thiamine and folic acid -Referral to licensed social worker -Recommend following with Alcoholics Anonymous on discharge, avoid alcohol use. -Follow-up with PCP for possibly obtaining pharmacological options to abstain from alcohol #Acute blood loss anemia #Acute on chronic microcytic anemia #Thrombocytopenia #Coagulopathy H/H on admission: 4.6/17.0%; MCV: 67, Platelets: 78 PT/INR: 21.0/ 2.0 DDX: acute blood loss, hemolysis, chronic inflammation leading to bone marrow supression in setting of chronic EtOH substance abuse Likely acute on chronic due to longstanding EtOH substance use disorder and acute GI bleed EGD 10/04/2022: Normal esophageal mucosa in mid and upper esophagus. Grade 1 esophageal varices in lower third of esophagus. There is an evidence of post banding ulcers in the lower third of esophagus with no evidence of recent bleeding and completely clean-based. Diffuse portal gastropathy. #Lactic Acidosis-resolved Case discussed with my attending Dr. Martínez Ortiz M.D. PGY-3 Disposition: Telemetry Fluids: None Feeding: Low-sodium Thrombo prophylaxis: SCDs Gastric Ulcer prophylaxis: Pantoprazole 40 mg IV twice daily CODE STATUS: Full code Attending Provider Attestation/Addendum Netta Root DO, attest that I was physically present for the cisneros portions of the service and evaluated the patient with the resident and I reviewed and discussed the case with the resident and agree with the resident's findings and plans of care as documented above Patient seen and eval this a.m. No acute events overnight. Patient reports some abdominal bloating, but no further nausea or vomiting of blood. Patient is stable for transfer otherwise. Will give 1 unit of PRBC as his hemoglobin remains around 7.
[2024-08-14 19:41] LABS: Hematocrit 25.4 % (41.0-53.0)
[2024-08-14 19:55] LABS: Hemoglobin 8.2 g/dL (13.5-16.0)
--- NOTE | 2024-08-14 21:55 | PD.IMPROG ---
Documentation for date of: 08/14/24 Subjective Subjective Interval history: Patient evaluated no further hematemesis or melanotic stools according to the patient and his hemoglobin did drop down to 7.2 and hematocrit 21.3 I will hold off doing an endoscopy at this time and advance his diet in the morning If the hemoglobin drops again I will schedule the patient for an upper endoscopy Exam Vital Signs Temp Pulse Resp BP Pulse Ox O2 Del Method O2 Flow Rate 97.4 F 60 18 120/72 98 Room Air 0 08/14/24 16:00 08/14/24 16:00 08/14/24 12:17 08/14/24 16:00 08/14/24 16:00 08/14/24 16:00 08/14/24 12:17 Objective Labs 08/14/24 19:24 08/12/24 08:53 Labs: Laboratory Results - last 24 hr 08/12/24 08/14/24 08/14/24 10:57 04:30 19:24 WBC 17.8 H RBC 2.62 L Hgb 7.2 L 8.2 L Hct 21.8 L* 25.4 L MCV 83 MCH 27.5 MCHC 33.0 RDW Std Deviation 58.4 H Plt Count 146 Neut % (Auto) 86 H Lymph % (Auto) 6 L [place] % (Auto) 6 Eos % (Auto) 0 Baso % (Auto) 0 Neut # (Auto) 15.3 H Lymph # (Auto) 1.1 [place] # (Auto) 1.0 H Eos # (Auto) 0.0 Baso # (Auto) 0.0 Immature Gran # (Auto) 0.36 H Absolute Nucleated RBC 0.00 Immature Gran % 2 H Nucleated RBC % 0 Total Bilirubin 12.8 H D Direct Bilirubin 9.3 H AST 54 H ALT 46 Alkaline Phosphatase 92 Total Protein 5.5 L Albumin 2.0 L Blood Type A Positive Antibody Screen POSITIVE Crossmatch See Detail Blood Bank Wristband ID Yes Impressions Impression: # GI hemorrhage # Acute posthemorrhagic anemia Continue to monitor CBC advance diet Assessment & Plan A&P Narrative # Melena # Hematemesis in the setting of cirrhotic liver disease due to alcohol most likely source of bleeding is esophageal variceal bleed or hypertensive portal gastropathy leading to mucosal oozing of blood # Thrombocytopenia # Coagulopathy Plan Agree with the current management with octreotide infusion as well as IV Protonix and blood transfusion Serial CBC N.p.o. Consent obtained for fiberoptic esophagogastroduodenoscopy with possible therapeutic intervention under intravenous moderate sedation Thank you once again for the opportunity to participate in the care of this patient Time Spent With Patient Time: Total time spent is greater than 50% in coordination of care (as documented) at patient's floor/unit and/or counseling patient:
[2024-08-15] VITALS: BP 115/66; PULSE 69; PULSE 75; RESP 21; TEMP 36.2; O2SAT 99
--- NOTE | 2024-08-15 03:12 | PC.NURSE ---
MD Del Valle called and verified if octreotide can be turned off for EMS transportation to [facility]. said yes, RN notified
--- NOTE | 2024-08-15 03:40 | PC.NURSE ---
facesheet and ambulance transport forms sent to dispatch. contacted and spoke to artemio. set up time is at 0545.
[2024-08-15 04:00] VITALS: BP 122/78; PULSE 64; PULSE 70; RESP 14; TEMP 36.2; O2SAT 99
--- NOTE | 2024-08-15 04:13 | PC.NURSE ---
Report given to David at [phone] at [facility] Rm [id number] Seo. Ambulance picked up pt at 0413. Transfer center notified of eta of 1.5 hours 0545
--- NOTE | 2024-08-15 07:48 | ESDS_ITS ---
<Statement entered by Netta Soliz DO - 08/15/24 08:20> I, Netta Soliz DO, attest that I was physically present for the cisneros portions of the service and evaluated the patient with the resident and I reviewed and discussed the case with the resident and agree with the resident's findings and plans of care as documented above Planned Discharge Date 08/15/24 DS: Providers Provider Date of admission: 08/04/24 00:19 Primary care physician: Physician No Primary/Family Admitting Provider: Suresh Maciel MD Attending Provider on Admission: Netta Soliz DO Consults: 08/04/24 00:29 Consult to Gastroenterology Routine Comment: Consulting Provider: Julissa Orozco 08/09/24 14:13 Referral - Nuclear Officer Stat Service Needed for Transfer: Interventional Radiology Addl Comments:: Transfer for IR embolization of GI bleeding. Attending Provider on DC: Netta Soliz DO Discharging Provider: Rodrigo Sheets MD Anticipated date of discharge: 08/15/24 DS: Diagnosis Problem List Completed Was Problem List Reviewed/Reconciled?: Yes Hospital Course Hospital Course Hospital course: 44-year-old male with past medical history of alcohol abuse, alcoholic cirrhosis, status post variceal banding from a GI bleed (09-21-2022) who presented to the ED of 08/03/2024 with a chief complaint of abdominal pain and hematemesis. As patient was actively bleeding and requiring transfusions was admitted to the ICU for concern of shock and possible need of pressors. During ICU stay patient did not require pressors however did require multiple transfusions. GI was consulted had EGD done was found to have esophageal varices grade 2 which were banded, gastritis with hemorrhage. At this time GI recommended completing octreotide drip for 5 days. At this time patient is downgraded to the floors. During hospital stay patient had multiple transfusions including PRBCs, fresh frozen plasma. With continued hemoglobin and hematocrit monitoring. GI specialist was consulted patient had endoscopy and colonoscopy both found negative for acute bleeding. However patient's hemoglobin continued to downtrend and CTA abdomen pelvis was done which showed Cirrhosis, Massive splenomegaly, Portosystemic collateral vessels medial to the spleen, Thickened and hyperemic gastric mucosa, consider significant gastritis, Suspicious for gastrointestinal bleeding in the right colon, coronal image 49, Hepatic colopathy, hepatic enteropathy. Patient was also provided with IV steroid medication, octreotide drip, pantoprazole 40 mg twice daily. Patient will require IR embolization for GI bleed. Patient has history of cirrhosis with transaminitis ascites and jaundice with scleral icterus SBP prophylaxis managed with ceftriaxone, lactulose was provided as well for bowel movements goal of 3/day. Alcohol use disorder was managed with a [facility] protocol with as needed Ativan, IV thiamine and folic acid. At this time patient is stable for transfer. Patient's hemoglobin continues to downtrend despite multiple transfusions. CTA abdomen pelvis was done which showed Thickened and hyperemic gastric mucosa, consider significant gastritis, Suspicious for gastrointestinal bleeding in the right colon. Patient will likely require higher level of care for IR embolization of GI bleed. Problem list: # Upper GI bleed secondary to # Esophageal varices status post banding # Status post EGD 08/04 with banding #Bright red blood per rectum #Cirrhosis secondary to chronic decompensated alcohol use disorder #Transaminitis #Ascites #Jaundice/scleral icterus # Alcohol dependence #Acute blood loss anemia #Acute on chronic microcytic anemia #Thrombocytopenia #Coagulopathy #Lactic Acidosis-resolved Case discussed with my attending Dr. Martínez Sheets MD PGY-1 Status at Discharge Functional status at discharge: independent ambulation Overall status at discharge: patient is progressing back to baseline Time Spent with Patient Time attestation: Total time spent providing and/or coordinating discharge services: Time spent: Greater than 30 minutes Exam Vital Signs Temp Pulse Resp BP Pulse Ox O2 Del Method O2 Flow Rate 97.1 F 64 14 122/78 99 Room Air 0 08/15/24 04:00 08/15/24 04:00 08/15/24 04:00 08/15/24 04:00 08/15/24 04:00 08/15/24 04:00 08/15/24 04:00 Narrative Exam Physical Exam GENERAL: NAD, AAOx3, noted yellow discoloration of the whole body HEENT: Moist mucosa. Scleral icterus CARDIO: Heart RRR, no obvious murmurs PULM: No noted coughing/dyspnea CTA B/L, no R/W/R GI: Abdomen soft, distended, no pain on palpation. BSx4 SKIN/MSK/EXT: no pain on palpation. Pedal pulses present B/L NEURO: AAOx3, no focal neuro deficits, able to move all 4 extremities Discharge Plan Plan Patient Disposition: [facility] Facility Pt Being Transferred to: [facility] Service Needed for Transfer: Gastroenterology Patient condition on transfer: Stable Prescriptions/Referrals Prescriptions/Med Rec: New pantoprazole [Protonix] 40 mg tablet,delayed release (DR/EC) 40 mg PO QDAY Qty: 30 0RF lactulose 10 gram/15 mL (15 mL) solution 10 g PO QDAY PRN (Reason: constipation) Qty: 300 0RF prednisolone sodium phosphate 10 mg tablet,disintegrating 40 mg PO QDAY 26 Days Qty: 104 0RF Rx Instructions: Recommend prednisolone 40 mg/day for 26 more days, will require steroid taper after finishing treatment, follow-up with outpatient doctor within 3 weeks for instructions regarding prednisone taper. Referrals: No Primary/Family,Physician [Primary Care Provider] - Patient/Caregiver Discharge Instructions Meds to Beds: No Other Discharge Activity Instructions:: Follow up appointment with Dr. Huff at [facility] August 16, 2024 at 9:30am phone number is [phone]. Recommend prednisolone 40 mg/day for 26 more days, will require steroid taper after finishing treatment, follow-up with outpatient doctor within 3 weeks for instructions regarding prednisone taper. Print Language: Lithuanian Stand Alone Forms: [facility]a Award Info., Patient Portal Info Letter Discharge Order Discharge Orders: Discharge (Routine); Ordered 08/15/24 Ordered By: Rodrigo Sheets Quality Discharge Quality Measures VTE prophylaxis
== END 2024-08-15 04:15 | disposition short-term general hospital (02) | DRG 280 ==
LOC: SERX 23:42 → S2SX 08-04 11:02 → SERHOLD 08-05 06:37 → S2SX 08-05 10:15 → S2NX 08-05 12:00
PROVIDERS: Specialist; Student in an Organized Health Care Education/Training Program; Admitting Provider Student in an Organized Health Care Education/Training Program; Emergency Provider Emergency Medicine; Visit Provider Internal Medicine
PROC: (CPT 43239; principal; 2024-08-04 11:00)
PROC: 0DJD8ZZ Inspection of Lower Intestinal Tract, Via Natural or Artificial Opening Endoscopic (ICD-10-PCS; CPT 45378; principal; 2024-08-08 22:00)
DX: K70.31 Alcoholic cirrhosis of liver with ascites (principal); K29.71 Gastritis, unspecified, with bleeding; I85.11 Secondary esophageal varices with bleeding; K31.89 Other diseases of stomach and duodenum; D62 Acute posthemorrhagic anemia; D50.9 Iron deficiency anemia, unspecified; D69.6 Thrombocytopenia, unspecified; F17.210 Nicotine dependence, cigarettes, uncomplicated; F10.20 Alcohol dependence, uncomplicated; K72.10 Chronic hepatic failure without coma; K76.6 Portal hypertension; K64.9 Unspecified hemorrhoids; K56.609 Unspecified intestinal obstruction, unspecified as to partial versus complete obstruction; D68.9 Coagulation defect, unspecified; I95.9 Hypotension, unspecified; E87.20 Acidosis, unspecified
CPT/HCPCS: 36415; 36430; 71045; 74174; 74176; 80048; 80053; 80061; 80076; 82140; 83605; 83735; 84100; 84443; 84484; 85014; 85018; 85025; 85610; 85730; 86850; 86870; 86900; 86901; 86921; 86922; 86927; 86965; 87081; 93005; 96365; 96372; 99291; A4649; J0171; J0696; J1200; J2175; J2250; J2310; J2354; J2405; J2470; J2550; J2919; J3010; J3430; J3475; J3480; J3490; J7030; J7050; P9016; P9045; P9060; Q9967; A9270

== ENCOUNTER 2024-08-26 14:18 | Emergency (ER) | payer MEDICAID, SELFPAY ==
--- NOTE | 2024-08-26 | XR_ITS ---
MRI abdomen, without contrast. MRCP Date and time of exam: August 26, 2024 at 1745 hrs. Indications: Abdominal pain elevated total bilirubin discomfort jaundice today Technique: Multiple axial and coronal images of the abdomen have been obtained with the Siemens 1.5T MRI scanner. Images obtained included T1 weighted transverse images, T2-weighted transverse images, T2-weighted transverse images fat-suppressed, T2 weighted haste fat suppressed transverse images, T1 weighted images, in and out of phase images, T2-weighted coronal images, breath hold, T2 weighted haze coronal images as well as T2 weighted coronal thick slab images, MRCP. Findings: Cirrhosis, liver nodular in contour with moderate ascites Marked splenomegaly, 16 cm Contracted gallbladder with gallstones No extrahepatic biliary tract dilatation The common hepatic common bile duct are poorly visualized Portosystemic collateral vessels medial to the spleen Significantly scarred left kidney, no hydronephrosis Intact osseous structures Impression: Cirrhosis Cholelithiasis, contracted gallbladder No extrahepatic biliary tract dilatation Moderate ascites Significant parenchymal scarring left kidney, no hydronephrosis
[2024-08-26 14:21] VITALS: BMI 29.7
[2024-08-26 14:28] VITALS: BP 116/89; PULSE 98; RESP 18; TEMP 37.3; O2SAT 97
--- NOTE | 2024-08-26 14:41 | XR_ITS ---
Examination: Ultrasound-guided paracentesis Abdominal sonogram limited Date and time of exam: August 26, 2024 1523 hours INDICATIONS: Cirrhosis, increasing ascites and abdominal distention this week Informed consent provided. A timeout was completed verifying correct patient, procedure, site, positioning, and special adequate movement if applicable. Technique: Multiple sonographic images of the abdomen have been obtained. Appropriate area for paracentesis was marked. Local anesthesia is obtained with 1% lidocaine. Yueh catheter is successfully introduced. Findings: Abdominal sonographic images demonstrate sufficient ascitic fluid for paracentesis. After placing the Yueh catheter, 3600 cc of fluid were successfully removed. During and after completion of the procedure the patient appear in satisfactory and stable condition with no complications observed. Estimated blood loss 0 cc Impression: Abdominal ascites Successful ultrasound-guided paracentesis as described above
--- NOTE | 2024-08-26 14:44 | PD.EDRME ---
Rapid Medical Screening Exam RME Arrival date/time: 08/26/24 14:18 44-year-old male presents to the emergency department today with complaints of abdominal pain and distention with yellowing of skin Vital signs: Vital Signs Temperature 99.1 F 08/26/24 14:28 Pulse Rate 98 08/26/24 14:28 Respiratory Rate 18 08/26/24 14:28 Blood Pressure 116/89 H 08/26/24 14:28 Pulse Oximetry (%) 97 08/26/24 14:28 Oxygen Delivery Method Room Air 08/26/24 14:28
[2024-08-26 15:16] LABS: Basophils % (Auto) 0 % (0-2.5); Eosinophils # (Auto) 0.1 Thou/mm3 (0.0-0.5); Eosinophils % (Auto) 1 % (0-10); Hematocrit 26.5 % (41.0-53.0); Immature Granulocytes % (Auto) 1 % (0-0); Immature Granulocytes Auto 0.13 Thou/mm3 (0.00-0.00); Lymphocytes # (Auto) 0.7 Thou/mm3 (1.0-4.8); Lymphocytes % (Auto) 4 % (10-50); Mean Corpuscular HGB Conc 32.1 g/dl (31.0-37.0); Mean Corpuscular Hemoglobin 26.2 pg (25.0-35.0); Mean Corpuscular Volume 82 fL (80-100); Monocytes # (Auto) 1.6 Thou/mm3 (0.0-0.8); Monocytes % (Auto) 8 % (0-12); Neutrophils # (Auto) 16.3 Thou/mm3 (1.8-7.7); Neutrophils % (Auto) 86 % (37-80); Nucleated Red Blood Cell % 0 /100 WBC (0); Platelet Count 133 Thou/mm3 (140-440); RDW Standard Deviation 60.5 fL (35.1-43.9); Red Blood Count 3.25 Miln/mm3 (4.50-5.90); White Blood Count 18.9 Thou/mm3 (3.8-10.6)
[2024-08-26 15:26] LABS: Hemoglobin 8.5 g/dL (13.5-16.0)
[2024-08-26 15:31] LABS: INR 1.6 (0.9-1.3); Partial Thromboplastin Time 31.9 Seconds (22.0-36.0); Prothrombin Time 16.8 Seconds (9.0-12.2)
[2024-08-26 15:46] LABS: Alanine Aminotransferase 129 U/L (10-49); Albumin, Serum 2.3 gm/dL (3.5-5.0); Albumin/Globulin Ratio 0.6 (1.2-2.2); Alkaline Phosphatase 152 U/L (46-116); Anion Gap 10 (7-16); Aspartate Amino Transferase 81 U/L (0-34); BUN/Creatinine Ratio 16 Ratio (12-20); Blood Urea Nitrogen 13 mg/dL (9-23); Calcium 7.2 mg/dL (8.3-10.6); Calcium (Corrected) 8.6 mg/dL (8.5-10.1); Carbon Dioxide 18.1 mMol/L (20.0-31.0); Chloride 107 mMol/L (98-107); Creatinine (Component) 0.8 mg/dL (0.6-1.3); Estimated Creatinine Clearance 122.3 mL/min (>60); Globulin 3.9 gm/dL (2.3-3.5); Glucose 116 mg/dL (74-106); Osmolality,Calculated 271 (275-295); Potassium 3.3 mMol/L (3.4-5.1); Sodium 135 mMol/L (136-145); Total Protein 6.2 gm/dL (5.7-8.2); eGFR > 60 See Note
[2024-08-26 16:19] LABS: Bilirubin,Total 14.7 mg/dL (0.3-1.2)
[2024-08-26] MEDS: LIDOCAINE INJ PF 1% 30 ML VIAL (18:56)
--- NOTE | 2024-08-26 20:57 | EDNOTE_ITS ---
ED Abdominal Pain RME/HPI General Chief Complaint: Abdominal Pain Stated complaint: GENERALIZED SWELLING x 1 MONTH Time seen by provider: 08/26/24 20:50 Arrival date/time: 08/26/24 14:18 Source: patient and family Mode of arrival: ambulatory Limitations: no limitations RME / HPI RME / HPI narrative: 08/26/24 14:18 44-year-old male presents to the emergency department today with complaints of abdominal pain and distention with yellowing of skin. Dr. Bah?s Main ED Evaluation: 44-year-old male, accompanied by his sister, presenting with concerns of generalized swelling for the past month. He reports a history of admission to this facility last month for a gastrointestinal bleed. Since that time, he has abstained from alcohol use. The patient was diagnosed with cirrhosis three years ago but did not pursue medical care or follow-up until now. Today, he underwent his first paracentesis. He has a scheduled follow-up appointment with Dr. Huff at the [facility] [place] on 08/30/2024. His sister states that she will assist him in maintaining proper follow-up care and adherence to his health plan. The patient denies any additional medical complaints or associated symptoms at this time. Related Data Previous Rx's ?Medication ?Instructions ?Recorded lactulose 10 gram/15 mL (15 mL) 10 g (15 mL) PO QDAY P RN 08/09/24 oral solution constipation #300 mL pantoprazole 40 mg tablet,delayed 40 mg PO QDAY #30 ta bs 08/09/24 release (Protonix) prednisolone sodium phosphate 10 40 mg (4 x 10 mg) PO QDAY 26 days 08/09/24 mg disintegrating tablet #104 tabs Allergies Allergy/AdvReac Type Severity Reaction Status Date / Time No Known Allergies Allergy Verified 08/26/24 14:24 Review of Systems Review of Systems Systems Reviewed: All systems reviewed, normal except as documented ED Exam Narrative Physical exam: GENERAL APPEARANCE: alert and oriented x 4, well-developed, well-nourished, no acute distress VITALS: All vitals were reviewed and the pulse ox is 100% on room air, which is normal according to my interpretation. HEENT: Normocephalic, atraumatic; pupils equal, round, reactive to light; EOMI; mucous membranes pink, moist; oropharynx clear NECK: Supple LUNGS: CTABL; no wheezes, no rales, no rhonchi HEART: Regular rate, regular rhythm; normal S1, S2; no murmurs ABDOMEN: distended s/t +ascites; normal BS; soft, no tenderness, no guarding, no rebound; no masses, no organomegaly, no hernia BACK: no CVA tenderness EXTREMITIES: atraumatic; +3 pitting edema without erythema. NEUROLOGIC: awake; alert and oriented x4; cranial nerves II-XII grossly intact; no focal sensory or motor deficits PSYCHIATRIC: appropriate mood and affect SKIN: warm, dry, normal color; no rashes General Limitations: Present no limitations Course Quality Measures none Orders Category Date Time Status MRI Screening NOW Care 08/26/24 14:42 Active MR MRCP Stat Exams 08/26/24 Completed US paracentesis abd w/image Stat Exams 08/26/24 14:41 Completed CBC Stat Lab 08/26/24 14:47 Completed Comprehensive Metabolic Panel Stat Lab 08/26/24 14:47 Completed Partial Thromboplastin Time Stat Lab 08/26/24 14:47 Completed Prothrombin Time with INR Stat Lab 08/26/24 14:47 Completed UA, C/S IF [Urinalysis, C/S if Indicated] Stat Lab 08/26/24 14:41 Ordered Lidocaine 1% Pf 30 ml [Xylocaine 1% Pf 30 ml] Med 08/26/24 15:21 Discontinued 30 ml .ROUTE .STK-MED ONE Vital Signs Vital signs: Vital Signs Temperature 99.1 F 08/26/24 14:28 Pulse Rate 98 08/26/24 14:28 Respiratory Rate 18 08/26/24 14:28 Blood Pressure 116/89 H 08/26/24 14:28 Pulse Oximetry (%) 97 08/26/24 14:28 Oxygen Delivery Method Room Air 08/26/24 14:28 Abdominal Pain MDM MDM Narrative MDM Narrative:: I have spoken with the patient and discussed today?s findings, in addition to providing specific details for the plan of care. Questions are answered and there is an agreement with the plan. Re-assessment at the time of disposition demonstrates that the patient is in no acute distress. The patient has remained stable throughout the entire ED visit and is without objective evidence for acute process requiring urgent intervention or hospitalization. The patient is stable for discharge; counseling is provided and documented as above, discussed symptomatic treatment and specific conditions for return. Scribe Attestation: I, Evette Villegas, am scribing for and in the presence of Dr. Bah. Provider Notation: Although this document has been carefully reviewed, there may still be some phonetic and other typographical errors. These errors are purely grammatical due to imperfections in the software program and should not be construed in any way to compromise the substance of the patient's medical care during this visit. Patient data External records reviewed:: [facility] previous records Clinical information provided by:: patient Social determinants that could affect healthcare access:: alcohol use Patient has the following chronic illnesses:: see PMH How is presenting disease/condition affected by chronic disease/condition?: exacerbated by Evaluation data The following diagnostics were reviewed and interpreted by me:: lab results and radiology exam(s) Lab and/or radiology exams considered but not ordered:: n/a Interpretation Summary: I personally reviewed the radiology data and agree with the radiologist's interpretation. MRI abdomen, without contrast. MRCP Date and time of exam: August 26, 2024 at 1745 hrs. Indications: Abdominal pain elevated total bilirubin discomfort jaundice today Findings: Cirrhosis, liver nodular in contour with moderate ascites Marked splenomegaly, 16 cm Contracted gallbladder with gallstones No extrahepatic biliary tract dilatation The common hepatic common bile duct are poorly visualized Portosystemic collateral vessels medial to the spleen Significantly scarred left kidney, no hydronephrosis Intact osseous structures Impression: Cirrhosis Cholelithiasis, contracted gallbladder No extrahepatic biliary tract dilatation Moderate ascites Significant parenchymal scarring left kidney, no hydronephrosis Examination: Ultrasound-guided paracentesis Abdominal sonogram limited Date and time of exam: August 26, 2024 1523 hours INDICATIONS: Cirrhosis, increasing ascites and abdominal distention this week Informed consent provided. Findings: Abdominal sonographic images demonstrate sufficient ascitic fluid for paracentesis. After placing the Yueh catheter, 3600 cc of fluid were successfully removed. During and after completion of the procedure the patient appear in satisfactory and stable condition with no complications observed. Estimated blood loss 0 cc Impression: Abdominal ascites Successful ultrasound-guided paracentesis as described above Medications / Prescriptions Medications or Prescriptions considered but not ordered:: n/a Medication administrations:: Medication Administration History Discontinued Medications Lidocaine HCl (Lidocaine Inj Pf 1% 30 Ml Vial) Confirm Administered Dose 30 ml .ROUTE .STK-MED ONE Stop: 08/26/24 15:22 Last Admin: 08/26/24 18:56 Dose: 30 ml Documented By: [facility] Comments: used by radiology as above Consultations Consultation(s) initiated? (list below): No Diagnosis Differential diagnosis abdominal pain: other (Alcoholic liver disease, Cirrhosis, Pancreatic ascites) Most likely diagnosis given after review of the tests above:: Ascites, Cirrhosis, Anemia Admission Indicated Admission indicated?: not indicated Admission Request Was there a request for admission?: No Disposition Plan Disposition Plan: Discharge Discharge Attestation Discharge Attestation: The patient and all family members were given an opportunity to ask questions and understood the discharge instructions. Discharge instructions specifically effects, indications for sooner follow up or return to the emergency department, and the expected course of current diagnosis. Patient condition: Stable Discharge Plan Plan Patient Disposition: HOME (Self Care) Disposition Comment: Stable for discharge Patient condition on transfer: Stable Prescriptions/Referrals Prescriptions/Med Rec: No Action pantoprazole [Protonix] 40 mg tablet,delayed release (DR/EC) 40 mg PO QDAY Qty: 30 0RF lactulose 10 gram/15 mL (15 mL) solution 10 g PO QDAY PRN (Reason: constipation) Qty: 300 0RF prednisolone sodium phosphate 10 mg tablet,disintegrating 40 mg PO QDAY 26 Days Qty: 104 0RF Rx Instructions: Recommend prednisolone 40 mg/day for 26 more days, will require steroid taper after finishing treatment, follow-up with outpatient doctor within 3 weeks for instructions regarding prednisone taper. Referrals: Julissa Orozco MD [Physician] - In 1 week No Primary/Family,Physician [Primary Care Provider] - In 1 week Problem List Clinical Impression: Ascites, Cirrhosis, Anemia Patient/Caregiver Discharge Instructions Discharge Activity: activity as tolerated Education Materials: Anemia, Paracentesis Dc, Treating Cirrhosis, Understanding Cirrhosis, ED Ascites, ED Cirrhosis Additional Instructions: It is very important that you follow-up with Dr. Orozco. Dr. Orozco is our garden tractor mechanic who is a specialist with the liver and the intestines. I have included his office information above. You should also follow-up with your primary care doctor within the next several days Please return to the emergency department if you have any worsening or you feel like you are not getting better within the next 48 hours. Print Language: [place]guill[place] Stand Alone Forms: [employer] Award Info., Patient Portal Info Letter
[2024-08-26 20:58] VITALS: BP 138/82; PULSE 91; RESP 19; TEMP 36.9; O2SAT 100
--- NOTE | 2024-08-26 21:32 | PC.NURSE ---
Pt. presents with c/o abdominal pain with alcoholic Chirrosis. Fluid removed today but bilateral lower leg swelling. Provider in ED explains Chirrosis and referrs to physician.
== END 2024-08-26 21:35 | disposition home or self-care (01) ==
PROVIDERS: Nurse Practitioner Primary Care; Emergency Provider Emergency Medicine; PCP Physician Assistant
DX: K74.60 Unspecified cirrhosis of liver (principal); R18.8 Other ascites; D64.9 Anemia, unspecified; K80.20 Calculus of gallbladder without cholecystitis without obstruction; F10.90 Alcohol use, unspecified, uncomplicated
CPT/HCPCS: 49083; 36415; 80053; 81001; 85025; 85610; 85730; 99284; C1729; J3490; S8037; 74181

== ENCOUNTER 2024-08-30 10:47 | Outpatient (AMB) | payer MEDICAID, SELFPAY ==
[2024-08-30 11:08] VITALS: BP 105/72; PULSE 104; RESP 17; TEMP 36.6; O2SAT 98
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
== END 2024-08-30 12:02 | disposition home or self-care (01) ==
LOC: HODAHC 10:47
PROVIDERS: PCP Student in an Organized Health Care Education/Training Program; Referring Provider Student in an Organized Health Care Education/Training Program; Supervising Provider Internal Medicine; Visit Provider Student in an Organized Health Care Education/Training Program
DX: K70.31 Alcoholic cirrhosis of liver with ascites (principal); R06.02 Shortness of breath; R60.0 Localized edema; Z71.6 Tobacco abuse counseling; F17.210 Nicotine dependence, cigarettes, uncomplicated
CPT/HCPCS: 99213; G0463

== ENCOUNTER 2024-08-30 12:37 | Inpatient (IN) | payer MEDICAID, SELFPAY ==
[2024-08-30 13:07] VITALS: BP 112/67; PULSE 102; RESP 20; TEMP 36.7; O2SAT 100; BMI 25.0
--- NOTE | 2024-08-30 13:16 | PD.EDABDPN ---
ED Abdominal Pain RME/HPI General Chief Complaint: Abdominal Pain Stated complaint: Needs fluid aspirated Time seen by provider: 08/30/24 12:40 Arrival date/time: 08/30/24 12:37 RME / HPI RME / HPI narrative: 44-year-old male patient came in requesting paracentesis. Patient has significant history of alcoholic liver cirrhosis, told me that he stopped drinking alcohol a month ago after he got admitted here for upper GI bleed. Patient stayed in the ICU requiring multiple blood transfusion. Patient follow-up with his PCP today and was advised to come to the emergency room for paracentesis. Patient had paracentesis done 4 days ago. Patient is complaining of abdominal pain. Also complaining of worsening jaundice. Also complaining of shortness of breath. Patient denies any fever denies any vomiting denies any vomiting blood or blood in the stool. Sepsis alert was initiated. Related Data Previous Rx's ?Medication ?Instructions ?Recorded lactulose 10 gram/15 mL (15 mL) 10 g (15 mL) PO QDAY PRN 08/09/24 oral solution constipation #300 mL pantoprazole 40 mg tablet,delayed 40 mg PO QDAY #30 tabs 08/09/24 release (Protonix) prednisolone sodium phosphate 10 40 mg (4 x 10 mg) PO QDAY 26 days 08/09/24 mg disintegrating tablet #104 tabs furosemide 20 mg tablet (Lasix) 20 mg PO QAM #30 tabs 08/30/24 spironolactone 25 mg tablet 25 mg PO QDAY #30 tabs 08/30/24 Allergies Allergy/AdvReac Type Severity Reaction Status Date / Time No Known Allergies Allergy Verified 08/30/24 12:42 Review of Systems Review of Systems Narrative Review of Systems: Review of system reviewed and within normal limits except mentioned in HPI ED Exam Narrative Physical exam: VITAL SIGNS: Reviewed. GENERAL APPEARANCE: Alert and interactive, follows commands, no acute distress, HEAD AND FACE: Non-traumatic. ENT: PERRL, icteric conjunctiva eyelid no trauma, Mucous membrane dry NECK: Supple, nontender, no nuchal rigidity. CHEST: No tenderness, no crepitus, no paradoxical movement, no retractions. LUNGS: Clear, well ventilated, symmetric, no rales, no wheezing, no ronchi, no stridor, good breath sounds bilaterally. HEART: Regular rate, regular rhythm, no murmur, no gallops. ABDOMEN: Soft, positive bowel sounds, distended, with multiple spider nevi on the abdomen, + guarding, diffuse tenderness, no rebound, no masses, RECTAL: Deferred. GENITAL: Deferred. NEUROLOGICAL: Gross motor function intact sensory function intact, Appropriate for age. MUSCULOSKELETAL: low back nontender, full range of motion. EXTREMITIES: Nontender, full range of motion. SKIN: Color jaundice, dry, no rash, no lacerations, no abrasions, no contusions. LYMPHATICS: Deferred. Course Quality Measures none Orders Category Date Time Status Admit to Inpatient Status Routine Admission 08/30/24 22:28 Active Patient Condition Routine Admission 08/30/24 22:27 Ordered Aspiration precautions ONCE Care 08/30/24 22:27 Active Bleeding Precautions NOW Care 08/30/24 22:31 Active COVID-19 Screening Questionnaire NOW Care 08/30/24 22:[address] Screening NOW Care 08/30/24 17:31 Active Decision to Admit X1 Care 08/30/24 22:05 Active IV [Insert IV] NOW Care 08/30/24 20:12 Active NPO NOW Care 08/30/24 22:28 Active Notify provider NEEDED Care 08/30/24 22:27 Active Obtain weight NOW Care 08/30/24 22:27 Active Sequential Compression Device QSHIFT Care 08/30/24 22:31 Active Strict Intake and Output Routine Care 08/30/24 22:28 Ordered Consult to Gastroenterology Stat Cons 08/30/24 22:28 Ordered Consult to Gastroenterology Stat Cons 08/30/24 22:34 Ordered Diet NPO (NOW) Diet 08/30/24 22:[address] angio abdomen pelvis Stat Exams 08/30/24 17:31 Completed KUB [XR abdomen 1V] Stat Exams 08/30/24 15:41 Completed US abdomen limited Stat Exams 08/30/24 13:27 Completed XR chest 1V Stat Exams 08/30/24 22:15 Taken ABG [Arterial Blood Gas] Stat Lab 08/30/24 15:41 Ordered Bilirubin,Direct Stat Lab 08/30/24 13:27 Completed Blood Culture (Lab) Stat Lab 08/30/24 22:15 Ordered CBC AM DRAW Lab 08/31/24 05:00 Ordered CBC AM DRAW Lab 09/01/24 05:00 Ordered CBC AM DRAW Lab 09/02/24 05:00 Ordered CBC Stat Lab 08/30/24 22:33 Ordered CBC [CBC] Stat Lab 08/30/24 13:27 Completed CMP [Comprehensive Metabolic Panel] Stat Lab 08/30/24 13:27 Completed Comprehensive Metabolic Panel AM DRAW Lab 08/31/24 05:00 Ordered Comprehensive Metabolic Panel AM DRAW Lab 09/01/24 05:00 Ordered Comprehensive Metabolic Panel AM DRAW Lab 09/02/24 05:00 Ordered Comprehensive Metabolic Panel Stat Lab 08/30/24 22:15 Ordered Lactate (Lactic Acid) Routine Lab 08/31/24 00:00 Ordered Lactate (Lactic Acid) Stat Lab 08/30/24 13:27 Completed Lactic Acid, 3 HR Stat Lab 08/30/24 17:44 Completed MRSA Nasal Screen Stat Lab 08/30/24 22:35 Ordered Magnesium AM DRAW Lab 08/31/24 05:00 Ordered Magnesium AM DRAW Lab 09/01/24 05:00 Ordered Magnesium AM DRAW Lab 09/02/24 05:00 Ordered Magnesium Stat Lab 08/30/24 22:15 Ordered PT [Prothrombin Time with INR] Stat Lab 08/30/24 13:27 Completed PTT [Partial Thromboplastin Time] Stat Lab 08/30/24 13:27 Completed Partial Thromboplastin Time AM DRAW Lab 08/31/24 05:00 Ordered Phosphorous Stat Lab 08/30/24 22:15 Ordered Procalcitonin Stat Lab 08/30/24 22:15 Ordered Prothrombin Time with INR AM DRAW Lab 08/31/24 05:00 Ordered Prothrombin Time with INR AM DRAW Lab 09/01/24 05:00 Ordered Prothrombin Time with INR AM DRAW Lab 09/02/24 05:00 Ordered Type and Screen Stat Lab 08/30/24 13:27 Results Type and Screen Stat Lab 08/30/24 22:35 Ordered prbc [Red Blood Cells] Stat Lab 08/30/24 13:27 Results Acetaminophen Supp [Tylenol Supp] Med 08/30/24 22:31 Active 650 mg DC Q6H PRN Acetaminophen Tab [Tylenol Tab] Med 08/30/24 22:27 Active 650 mg PO Q6H PRN HYDROcodone*/APAP 5/325 [[place] 5/325] Med 08/30/24 22:31 Active 1 tab PO Q4HR PRN Ondansetron Inj [Zofran Inj] Med 08/30/24 22:31 Ordered 4 mg IV Q6H PRN Pantoprazole Inj [Protonix Inj] Med 08/30/24 22:35 Ordered 40 mg IVP Q12HR Piper/Tazo 3.375 gm [Zosyn] Med 08/30/24 22:36 Ordered 3.375 gm in 50 ml IV Q6HR Piper/Tazo 3.375 gm [Zosyn] Med 08/30/24 17:36 Discontinued 3.375 gm in 50 ml IV X1 Senna [Senokot] Med 08/30/24 22:31 Ordered 1 tab PO QDAY PRN Sodium Chloride 0.9% 1000 ml [Ns] 1,000 ml Med 08/30/24 17:32 Discontinued IV 999 mls/hr Sodium Chloride 0.9% 1000 ml [Ns] 1,000 ml Med 08/30/24 18:03 Discontinued IV 999 mls/hr Sodium Chloride 0.9% [Ns] 100 ml Med 08/30/24 22:34 Active Octreotide Acet Inj [SandoSTATIN Inj] 1,000 mcg IV 50 mcg/hr Sodium Chloride 0.9% [Ns] 100 ml Med 08/30/24 22:34 Ordered Octreotide Acet Inj [SandoSTATIN Inj] 1,000 mcg IV 50 mcg/hr Code Status Routine Oth 08/30/24 22:27 Ordered Oxygen Delivery PRN RT 08/30/24 22:27 Active Vital Signs Vital signs: Vital Signs Temperature 98.1 F 08/30/24 13:07 Pulse Rate 102 H 08/30/24 13:07 Respiratory Rate 20 08/30/24 13:07 Blood Pressure 112/67 08/30/24 13:07 Pulse Oximetry (%) 100 08/30/24 13:07 Oxygen Delivery Method Room Air 08/30/24 13:07 Abdominal Pain MDM MDM Narrative MDM Narrative:: 44-year-old male patient came in requesting paracentesis. Patient has significant history of alcoholic liver cirrhosis, told me that he stopped drinking alcohol a month ago after he got admitted here for upper GI bleed. Patient stayed in the ICU requiring multiple blood transfusion. Patient follow-up with his PCP today and was advised to come to the emergency room for paracentesis. Patient had paracentesis done 4 days ago. Patient is complaining of abdominal pain. Also complaining of worsening jaundice. Also complaining of shortness of breath. Patient denies any fever denies any vomiting denies any vomiting blood or blood in the stool. Lactic acid was noted to be 5.9, repeat lactic acid went down to 5.8. Patient's having 16,000 leukocytosis. Carbodec site of 13.8 chloride 108 sodium 132 total bili 15.3 direct bili 19.9 AST 49 ALT 76 alkaline phos of 140. CT scan of the abdomen and pelvis showed Cirrhosis Moderate splenomegaly Moderate ascites Portal hypertension Esophageal perigastric varices Hepatic colopathy, hepatic enteropathy Ultrasound paracentesis was ordered however there is no enough ascitic fluid to aspirate. Rectal exam was done by me, I did not notice any black tarry stool, tested negative for occult blood. Case discussed with hospitalist who admitted the patient. Patient data External records reviewed:: [facility] previous records Clinical information provided by:: patient Social determinants that could affect healthcare access:: none Patient has the following chronic illnesses:: Alcoholic liver cirrhosis, upper GI bleed How is presenting disease/condition affected by chronic disease/condition?: caused by Evaluation data The following diagnostics were reviewed and interpreted by me:: lab results and radiology exam(s) Lab and/or radiology exams considered but not ordered:: None Interpretation Summary: See results in [facility] Medications / Prescriptions Medications or Prescriptions considered but not ordered:: None Medication administrations:: Medication Administration History Acetaminophen (Acetaminophen 325 Mg Tablet) 650 mg PO Q6H PRN PRN Reason: Fever >101.5 Stop: 09/29/24 22:26 Acetaminophen (Acetaminophen Supp 650 Mg Supp) 650 mg DC Q6H PRN PRN Reason: PAIN SCALE 1-3 (mild Stop: 09/29/24 22:30 Hydrocodone Bitart/Acetaminophen (Hydrocodone/Apap 5/325 Tablet) 1 tab PO Q4HR PRN PRN Reason: PAIN SCALE 4-10(Mod-Sev Stop: 09/04/24 22:30 Octreotide Acetate 1,000 mcg/ (Sodium Chloride) 102 mls @ 5.1 mls/hr IV .Q20H CATHY; Protocol Stop: 09/04/24 22:34 Octreotide Acetate 1,000 mcg/ (Sodium Chloride) 102 mls @ 5.1 mls/hr IV .Q20H ONE; Protocol Stop: 08/31/24 18:33 Piperacillin/Tazobactam/Dextrose (Zosyn) 3.375 gm in 50 mls @ 100 mls/hr IV Q6HR CATHY Stop: 09/06/24 22:35 Ondansetron HCl (Ondansetron Inj 2 Mg/Ml Inj 2 Ml) 4 mg IV Q6H PRN; Protocol PRN Reason: NAUSEA OR VOMITING Stop: 09/29/24 22:30 Pantoprazole Sodium (Pantoprazole Inj 40 Mg Vial) 40 mg IVP Q12HR CATHY Stop: 09/29/24 22:34 Sennosides (Senna Tablet) 1 tab PO QDAY PRN; Protocol PRN Reason: constipation Stop: 09/29/24 22:30 Discontinued Medications Sodium Chloride (Ns) 1,000 mls @ 999 mls/hr IV .Q1H1M ONE Stop: 08/30/24 18:32 Last Infusion: 08/30/24 21:19 Dose: Infused Documented By: Admin: 08/30/24 20:14 Dose: 999 mls/hr Documented By: LB Piperacillin/Tazobactam/Dextrose (Zosyn) 3.375 gm in 50 mls @ 100 mls/hr IV X1 ONE Stop: 08/30/24 18:05 Last Infusion: 08/30/24 20:45 Dose: Infused Documented By: Admin: 08/30/24 20:14 Dose: 100 mls/hr Documented By: LB Sodium Chloride (Ns) 1,000 mls @ 999 mls/hr IV .Q1H1M ONE Stop: 08/30/24 19:03 Last Admin: 08/30/24 21:17 Dose: 999 mls/hr Documented By: LB IV fluids IV Zosyn Consultations Consultation(s) initiated? (list below): Yes Consultation #1 (Physician, Specialty, Details): Dr. Orozco was consulted. Diagnosis Differential diagnosis abdominal pain: abdominal pain and other (Spontaneous bacterial peritonitis, sepsis,) Most likely diagnosis given after review of the tests above:: Sepsis, spontaneous bacterial peritonitis, transaminitis, alcoholic liver cirrhosis Admission Indicated Admission indicated?: indicated Admission Request Was there a request for admission?: Yes Admission Attestation Admission request attestation: Discussed case with [] from Hospitalist service regarding admission. Discussed patients ED course, exam findings, labs, and radiology results. The Hospitalist [agrees,declines] to accept the patient for admission. Disposition Plan Disposition Plan: Admit Critical Care Time Critical Care Time Total Critical Care Time (min.): 45 Attestation: Critical Care Time The very real possibility of a deterioration of this patient's condition required the highest level of my preparedness for sudden, emergent intervention for the following systems: Cardiac and Metabolic. I provided critical care services, which included medication orders, frequent re-evaluations of the patient's condition and response to treatment, ordering and reviewing test results, and discussing the case with various consultants including: nursing staff, hospitalist, and more. The critical care time associated with the care of this patient was 45 minutes. Discharge Plan Plan Patient Disposition: Admit Acute Care w/in Hospital Disposition Comment: Guarded Prescriptions/Referrals Prescriptions/Med Rec: No Action spironolactone 25 mg tablet 25 mg PO QDAY Qty: 30 3RF furosemide [Lasix] 20 mg tablet 20 mg PO QAM Qty: 30 3RF pantoprazole [Protonix] 40 mg tablet,delayed release (DR/EC) 40 mg PO QDAY Qty: 30 0RF lactulose 10 gram/15 mL (15 mL) solution 10 g PO QDAY PRN (Reason: constipation) Qty: 300 0RF prednisolone sodium phosphate 10 mg tablet,disintegrating 40 mg PO QDAY 26 Days Qty: 104 0RF Rx Instructions: Recommend prednisolone 40 mg/day for 26 more days, will require steroid taper after finishing treatment, follow-up with outpatient doctor within 3 weeks for instructions regarding prednisone taper. Problem List Clinical Impression: Sepsis, Liver cirrhosis, alcoholic, Spontaneous bacterial peritonitis, Transaminitis, Hyperbilirubinemia Patient/Caregiver Discharge Instructions Education Materials: Paracentesis Dc Print Language: Serbian Stand Alone Forms: [employer]a Award Info., Patient Portal Info Letter
--- NOTE | 2024-08-30 13:27 | XR_ITS ---
Examination: Abdomen sonogram, Limited Date and time of exam: August 30, 2024 1351 hours INDICATIONS: Increasing abdominal pain and distention this week, diagnosis cirrhosis Technique: Real-time machado scale transabdominal sonographic images of the upper abdomen obtained. Findings: Minimal ascitic fluid IMPRESSION: Minimal ascitic fluid
[2024-08-30 13:43] LABS: Lactate (Lactic Acid) 5.9 mMol/L (0.4-2.0)
[2024-08-30 13:48] LABS: Basophils % (Auto) 0 % (0-2.5); Eosinophils # (Auto) 0.1 Thou/mm3 (0.0-0.5); Eosinophils % (Auto) 1 % (0-10); Hematocrit 23.9 % (41.0-53.0); Immature Granulocytes % (Auto) 1 % (0-0); Immature Granulocytes Auto 0.12 Thou/mm3 (0.00-0.00); Lymphocytes # (Auto) 0.6 Thou/mm3 (1.0-4.8); Lymphocytes % (Auto) 4 % (10-50); Mean Corpuscular HGB Conc 31.8 g/dl (31.0-37.0); Mean Corpuscular Hemoglobin 25.9 pg (25.0-35.0); Mean Corpuscular Volume 82 fL (80-100); Monocytes # (Auto) 1.2 Thou/mm3 (0.0-0.8); Monocytes % (Auto) 7 % (0-12); Neutrophils % (Auto) 87 % (37-80); Nucleated Red Blood Cell % 0 /100 WBC (0); Platelet Count 99 Thou/mm3 (140-440); Red Blood Count 2.93 Miln/mm3 (4.50-5.90)
[2024-08-30 14:03] LABS: INR 1.8 (0.9-1.3); Partial Thromboplastin Time 40.4 Seconds (22.0-36.0); Prothrombin Time 18.8 Seconds (9.0-12.2)
[2024-08-30 14:12] LABS: Alanine Aminotransferase 76 U/L (10-49); Albumin/Globulin Ratio 0.5 (1.2-2.2); Alkaline Phosphatase 140 U/L (46-116); Anion Gap 10 (7-16); Aspartate Amino Transferase 46 U/L (0-34); BUN/Creatinine Ratio 17 Ratio (12-20); Bilirubin,Direct 10.9 mg/dL (0.0-0.3); Bilirubin,Total 15.3 mg/dL (0.3-1.2); Blood Urea Nitrogen 17 mg/dL (9-23); Calcium (Corrected) 8.6 mg/dL (8.5-10.1); Chloride 108 mMol/L (98-107); Estimated Creatinine Clearance 87.2 mL/min (>60); Globulin 3.9 gm/dL (2.3-3.5); Glucose 175 mg/dL (74-106); Osmolality,Calculated 270 (275-295); Potassium 3.6 mMol/L (3.4-5.1); Sodium 132 mMol/L (136-145); Total Protein 5.9 gm/dL (5.7-8.2); eGFR > 60 See Note
[2024-08-30 14:41] LABS: Carbon Dioxide 13.8 mMol/L (20.0-31.0)
[2024-08-30 14:57] LABS: Hemoglobin 7.6 g/dL (13.5-16.0)
--- NOTE | 2024-08-30 15:41 | XR_ITS ---
Examination: Abdomen AP single view Technique: AP portable supine abdomen, single view Exam date and time: August 30, 2024 1633 hours INDICATIONS: Abdominal distention one month. FINDINGS: Moderate stool throughout the colon Mild small bowel ileus No free air IMPRESSION: Mild small bowel ileus
[2024-08-30 16:35] LABS: Reflex Lactate? Y
[2024-08-30 17:16] VITALS: BP 123/69; PULSE 104; RESP 12; TEMP 36.6; O2SAT 97
--- NOTE | 2024-08-30 17:31 | XR_ITS ---
Examination: CTA abdomen, with intravenous contrast. CTA pelvis, with intravenous contrast. 2-D sagittal and coronal reconstructions. 3-D reconstructions. Date and time of exam: August 30, 2024 at 2048 hrs. Indications: Abdominal distention and pain today CTDI vol (mgy) 20 DLP (MGycm) 6 Technique: Multiple CTA images, 2.0 mm slice thickness, obtained chest, abdomen, pelvis, with the high-resolution 64 slice scanner. 100 cc Isovue-370 is administered intravenously. Sagittal and coronal 2-D reconstructions are obtained. 3-D reconstructions, angiographic images are obtained. 3-D postprocessing, including vascular maximum intensity projections. Low dose protocols were performed. One or more of the following dose reduction techniques were used; automated exposure control, adjustment of the mA and/or KV according to patient size, use of iterative reconstruction technique. Findings: Small right pleural effusion Cirrhosis, liver nodular in contour Moderate splenomegaly Moderate ascites Portosystemic collateral vessels medial to the spleen Esophageal varices Perigastric varices Contracted gallbladder Aorta normal size Severely scarred left kidney No bowel obstruction 25 mm fat-containing umbilical hernia Colonic wall is diffusely thickened Small bowel loops show wall thickening Marked thickening of the rectal wall No prostatomegaly Urinary bladder intact Impression: Cirrhosis Moderate splenomegaly Moderate ascites Portal hypertension Esophageal perigastric varices Hepatic colopathy, hepatic enteropathy
[2024-08-30 18:37] LABS: Lactic Acid, 3 HR 5.8 mMol/L (0.4-2.0)
[2024-08-30 18:42] VITALS: BP 102/61; PULSE 104; RESP 20; TEMP 36.8; O2SAT 100
[2024-08-30 19:43] VITALS: BP 109/74; PULSE 105; RESP 22; TEMP 37.2; O2SAT 100
--- NOTE | 2024-08-30 20:00 | PC.NURSE ---
Sleepy, but aroused easily. Abd round, distended and tender. Fluid oozing out from rt side of abd from previous paracentisis, couple of days ago per pt/family at bedside. Skin jaundice.
[2024-08-30] MEDS: PIPER/TAZO 3.375 GM 3.375 GM/50 ML BAG IV (20:14)
[2024-08-30] MEDS: SODIUM CHLORIDE 0.9% 1000 ML 1,000 ML 999 ML IV ×2 (20:14→21:17)
--- NOTE | 2024-08-30 20:40 | PC.NURSE ---
To ct-scan via gurney.
[2024-08-30 21:13] VITALS: BP 99/70; PULSE 110; RESP 22; O2SAT 98
--- NOTE | 2024-08-30 22:15 | XR_ITS ---
Examination: AP chest single view Technique one AP portable upright chest single view Exam date and time: August 30, 2024 at 1018 hrs. Indications: Onset sepsis today. Findings: Normal heart size Lungs are clear. The osseous structures are intact Impression: No active disease
--- NOTE | 2024-08-30 22:49 | PD.RESHP ---
Documentation for date of: 08/30/24 [facility] History of Present Illness Chief complaint: Increased abdominal girth and abdominal pain, lower extremity edema, decrea History of present illness: This patient is a 44-year-old male with past medical history of alcohol abuse, alcoholic cirrhosis status post variceal banding from GI bleed performed on 08/07/24 showing grade 1 esophageal varices and colonoscopy performed on 08/08/2024 showing hemorrhoids presented from [facility] seen today by primary care physician presented for follow-up in the clinic. He was found to have increased abdominal girth with swelling of both bilateral lower extremities most likely anasarca, decreased urination and abdominal discomfort with difficulty breathing and was sent to the ED for further evaluation and requirement of paracentesis. While evaluation in the ED patient was found to have severe abdominal discomfort with tenderness on palpation and was having fever and chills. He denies any chest pain, shortness of breath, cough or burning sensation during urination. Patient was AOx3 and reported that he had been passing bowel movements possible associated with blood however he was unsure. Rectal examination only showed loose yellowish bowel movements without blood. Patient did had paracentesis performed on 08/26/2024 and 3.6 L were removed. Today, ultrasound-guided paracentesis could not be performed due to insufficient fluid per IR. Of note patient had a history of IR embolization in the past due to hematemesis and GI bleed in the past with requirement of more than 10 blood transfusions. Orders: In the ED, patient was mildly hypotensive blood pressure 99/70, heart rate 110 bpm, respiratory rate 22 and temp 99. He was saturating well on room air. Labs were significant for leukocytosis 16.0, hemoglobin 7.6, platelet 99. Coagulopathy seen with PT 18.8 and INR 1.8. Chemistry panel was significant for sodium 132 and chloride 108 and non-anion gap metabolic acidosis with bicarb 13.8 and anion gap 10. Kidney function showed BUN 17 and creatinine 1.0 with baseline creatinine 0.8 from 08/26/2024. Blood glucose 175. Lactic acid was elevated at 5.9--> 5.8. Total bilirubin 15.3, direct bilirubin 10.9. Elevated AST and ALTs. Ammonia level pending. Albumin was 2.0. Urinalysis showed bilirubin 1+, WBC with negative leukocyte esterase. U tox pending. Hep panel pending. Imaging: Abdominal ultrasound showed minimal ascites fluid. Abdominal x-ray showed small bowel ileus CT abdominal pelvis showed small right pleural effusion, cirrhosis, splenomegaly, moderate ascites, perigastric varices, 25 mm fat containing umbilical hernia Chest x-ray showed no active disease. In the ED, patient received 2 L bolus of fluids and Zosyn x 1. Patient met 2/4 SIRS criteria with tachycardia, leukocytosis and possible source of infection with elevated lactic acid. PMH: As above PSH: None SH: Current everyday smoker, quit drinking alcohol a month ago. Denies illicit drug use. Patient lives with his mom at home. Allergies: None Home medications: Protonix, lactulose, Lasix 20 mg and spironolactone 25 mg Patient is admitted for further workup and management of sepsis likely due to possible SBP with underlying hx of alcoholic induced liver cirrhosis and anasarca. Review of Systems Review of Systems Systems Reviewed: All systems reviewed, normal except as documented Exam Vital Signs Temp Pulse Resp BP Pulse Ox O2 Del Method 99 F 110 H 22 H 99/70 98 Room Air 08/30/24 19:43 08/30/24 21:13 08/30/24 21:13 08/30/24 21:13 08/30/24 21:13 08/30/24 21:13 Narrative Exam GENERAL APPEARANCE: Patient is somnolent, shaking and saturating well on room air. HEENT: NC, AT. MMM. EOMI, clear conjunctiva, oropharynx clear. Icterus NECK: Supple without lymphadenopathy. No stiffness or restricted ROM. HEART: Sinus tachycardia with regular rhythm, normal S1/S2, no m/r/g LUNGS: CTAB, moving air well. No crackles or wheezes are heard. ABDOMEN: Soft, tenderness increased abdominal girth with active bowel sounds. BACK: No CVAT, no obvious deformity. EXTREMITIES: Bilateral lower extremity pitting edema up to thighs NEUROLOGICAL: Grossly nonfocal. Alert and oriented, moving all 4 extremities. CN not formally tested but appear grossly intact. Skin: Dermatitis seen in both lower extremities Psych: Somnolent however conversation and answering questions Results: Labs 08/30/24 22:42 08/30/24 22:42 Labs: Short CBC 08/30/24 Range/Units 13:27 WBC 16.0 H (3.8-10.6) Thou/mm3 Hgb 7.6 L (13.5-16.0) g/dL Hct 23.9 L (41.0-53.0) % Plt Count 99 L D (140-440) Thou/mm3 BMP 08/30/24 13:27 Sodium 132 L Potassium 3.6 Chloride 108 H Carbon Dioxide 13.8 L* BUN 17 Creatinine 1.0 Glucose 175 H Calcium 7.0 L Liver Function 08/30/24 Range/Units 13:27 Total Bilirubin 15.3 H (0.3-1.2) mg/dL Direct Bilirubin 10.9 H (0.0-0.3) mg/dL AST 46 H (0-34) U/L ALT 76 H (10-49) U/L Alkaline Phosphatase 140 H (46-116) U/L Albumin 2.0 L (3.5-5.0) gm/dL Quality Measures Quality Measures VTE prophylaxis (SCDs) Medications Home Medications and Allergies Allergies Allergy/AdvReac Type Severity Reaction Status Date / Time No Known Allergies Allergy Verified 08/30/24 12:42 Visit Medications Acetaminophen (Acetaminophen 325 Mg Tablet) 650 mg PO Q6H PRN PRN Reason: Fever >101.5 Stop: 09/29/24 22:26 Acetaminophen (Acetaminophen Supp 650 Mg Supp) 650 mg MA Q6H PRN PRN Reason: PAIN SCALE 1-3 (mild Stop: 09/29/24 22:30 Hydrocodone Bitart/Acetaminophen (Hydrocodone/Apap 5/325 Tablet) 1 tab PO Q4HR PRN PRN Reason: PAIN SCALE 4-10(Mod-Sev Stop: 09/04/24 22:30 Octreotide Acetate 1,000 mcg/ (Sodium Chloride) 252 mls @ 12.6 mls/hr IV .Q20H CATHY; Protocol Stop: 09/29/24 22:33 Octreotide Acetate 1,000 mcg/ (Sodium Chloride) 102 mls @ 5.1 mls/hr IV .Q20H ONE; Protocol Stop: 08/31/24 18:33 Piperacillin/Tazobactam/Dextrose (Zosyn) 3.375 gm in 50 mls @ 12.5 mls/hr IV Q8HR CATHY Stop: 09/07/24 05:59 Lactulose (Lactulose Syrup 20 Gm/30 Ml Udc) 10 gm PO TID PRN; Protocol PRN Reason: Constipation Stop: 09/29/24 22:59 Ondansetron HCl (Ondansetron Inj 2 Mg/Ml Inj 2 Ml) 4 mg IV Q6H PRN; Protocol PRN Reason: NAUSEA OR VOMITING Stop: 09/29/24 22:30 Pantoprazole Sodium (Pantoprazole Inj 40 Mg Vial) 40 mg IVP Q12HR CATHY Stop: 09/29/24 22:34 Sennosides (Senna Tablet) 1 tab PO QDAY PRN; Protocol PRN Reason: constipation Stop: 09/29/24 22:30 Discontinued Medications Sodium Chloride (Ns) 1,000 mls @ 999 mls/hr IV .Q1H1M ONE Stop: 08/30/24 18:32 Last Infusion: 08/30/24 21:19 Dose: Infused Piperacillin/Tazobactam/Dextrose (Zosyn) 3.375 gm in 50 mls @ 100 mls/hr IV X1 ONE Stop: 08/30/24 18:05 Last Infusion: 08/30/24 20:45 Dose: Infused Sodium Chloride (Ns) 1,000 mls @ 999 mls/hr IV .Q1H1M ONE Stop: 08/30/24 19:03 Last Admin: 08/30/24 21:17 Dose: 999 mls/hr Assessment & Plan Plan Summary: This patient is a 44-year-old male with past medical history of alcohol abuse, alcoholic cirrhosis status post variceal banding from GI bleed performed on 08/07/24 showing grade 1 esophageal varices and colonoscopy performed on 08/08/2024 showing hemorrhoids presented with abdominal discomfort, possible blood in stool, significant lower extremity edema with difficult urination from couple of days. Patient is admitted for sepsis likely secondary to SBP with underlying history of alcohol induced liver cirrhosis and anasarca. #Sepsis likely secondary to SBP #Alcohol induced decompensated liver cirrhosis and ascites with anasarca #Leukocytosis ?Patient presented from PCP follow-up with increased abdominal girth, decreased urination, abdominal pain and bilateral lower extremity edema. Patient was also found to have fever chills during examination. Patient has quit drinking alcohol a month ago. ? Rectal examination only showed yellowish loose stools. Patient underwent paracentesis on 08/26 with removal of 3.6 L. ? Patient is currently AOx3. ? Labs were significant for leukocytosis white count 16, normocytic anemia hemoglobin 7.6 and elevated LFTs with elevated T. bili and direct bili. ? MELD NA score 25 points 14-15% 90 D Mortality ? MDF score 42.3 point Poor Prognosis ? Child Hale score C 11 points ?In the ED, patient was mildly hypotensive blood pressure 99/70, heart rate 110 bpm, respiratory rate 22 and temp 99. He was saturating well on room air. -Abdominal ultrasound showed minimal ascites fluid.Abdominal x-ray showed small bowel ileus -CT abdominal pelvis showed small right pleural effusion, cirrhosis, splenomegaly, moderate ascites, perigastric varices, 25 mm fat containing umbilical hernia -Chest x-ray showed no active disease. In the ED, patient received 2 L bolus of fluids and Zosyn x 1. Patient met 2/4 SIRS criteria with tachycardia, leukocytosis and possible source of infection with elevated lactic acid. Plan: ? Started IV antibiotics Zosyn 3.375 g Q6 hourly, [08/30? ? Patient will benefit from Lasix and spironolactone tomorrow if blood pressure remains stable ? MA lactulose 10 mg 3 times daily as needed ? Started prednisone 40 mg for 28 days as MDF 42.3 points ? Order diagnostic paracentesis for SBP with fluid analysis ? Albumin scheduled for morning ? GI consulted, appreciate recommendations ? Follow-up on CBC and CMP ? Follow-up on blood cultures and ammonia level ? Replete electrolytes as necessary ? CIWA protocol was not added as pt quit drinking alcohol a month ago #Decreased urination ? Patient reported to have decreasing output. ?Kidney function showed BUN 15 and creatinine 0.9 ? Patient received 2 L bolus of fluid x 1 in the ED Plan: ?Ordered albumin 25 twice daily ? Strict PAXTON's ? Avoid nephrotoxic agents ? Renally dose medications ? Follow-up with renal panel ? Bladder scan as needed ?Follow-up on urine electrolytes and consider nephro consult as necessary #Normocytic anemia #History of GI bleed #History of gastric esophageal versus s/p banding on 08/07/24 #History of hemorrhoids per colonoscopy on 08/08/24 -Labs were significant for hemoglobin 7.6 to 7.8 ?History of IR embolization and massive blood transfusion protocol was given during previous admission Plan ? Started octreotide and Protonix ? GI consulted atul recs ? Ordered 2 unit PRBC in anticipation to drop in hemoglobin ? PRBC if hemoglobin drops below 7 #Non-anion gap metabolic acidosis #Lactic acidosis likely type B ? Related to infection -Chemistry panel was significant for sodium 132 and chloride 108 and non-anion gap metabolic acidosis with bicarb 13.8 and anion gap 10. Kidney function showed BUN 17 and creatinine 1.0 with baseline creatinine 0.8 from 08/26/2024. -Lactic acid was elevated at 5.9--> 3.2 -ABGs showed pH 7.45, pCO2 19, pO2 149, bicarb 14.7 on CHEM panel FiO2 21% ? Most likely Primary Respiratory Alkalosis, Chronic, with: Secondary Metabolic Acidosis and Additional Non-Gap Metabolic Acidosis.NAGMA could be related to RTA Plan: ? Treating underlying infection with IV antibiotics ? 2 ampoule of bicarb given ? Ordered urine electrolyte #Somnolence #Hyperbilirubinemia #Coagulopathy #Thrombocytopenia #Hypoalbuminemia #Transaminitis #Hyperammonemia -Labs were significant for platelet 99. Coagulopathy seen with PT 18.8 and INR 1.8. Albumin was 2.0. -Total bilirubin 15.3, direct bilirubin 10.9. Elevated AST and ALTs. ?Serum ammonia 151 Plan: ?Started MA lactulose 20 mg 3 times daily scheduled ? Ordered vitamin K 10 mg subcu x 1 ? Bleeding precautions ? Trending LFTs ? Avoiding hepatotoxic agents ? Treating underlying infection ? Ordered hep panel and U-Tox Health maintenance Diet: N.p.o. GI prophylaxis: Protonix 40 mg IV daily twice daily, octreotide drip DVT prophylaxis: SCDs CODE STATUS: Full code Disposition: Patient is admitted for further workup and management of sepsis likely secondary to SBP due to underlying history of alcohol induced because of liver cirrhosis and anasarca. Patient was seen and discussed with attending physician, Dr.Macaranas Dr. Fidelia MD, PGY 2 Attending Provider Attestation/Addendum 44-year-old alcoholic male patient with liver cirrhosis, portal hypertension, esophageal varices was admitted for abdominal pain. Initial diagnosis of possible SBP. The patient has ascite He will admitted for administration of IV antibiotics. Check culture results. The patient was seen in the ED. He is alert and oriented. He has stable vital signs
[2024-08-30 23:29] LABS: Alanine Aminotransferase 71 U/L (10-49); Albumin/Globulin Ratio 0.5 (1.2-2.2); Alkaline Phosphatase 138 U/L (46-116); Anion Gap 9 (7-16); Aspartate Amino Transferase 41 U/L (0-34); BUN/Creatinine Ratio 17 Ratio (12-20); Bilirubin,Total 14.7 mg/dL (0.3-1.2); Blood Urea Nitrogen 15 mg/dL (9-23); Calcium 7.2 mg/dL (8.3-10.6); Calcium (Corrected) 8.8 mg/dL (8.5-10.1); Chloride 111 mMol/L (98-107); Creatinine (Component) 0.9 mg/dL (0.6-1.3); Estimated Creatinine Clearance 96.9 mL/min (>60); Globulin 4.1 gm/dL (2.3-3.5); Glucose 93 mg/dL (74-106); Magnesium 1.6 mg/dL (1.6-2.6); Osmolality,Calculated 270 (275-295); Phosphorous 2.3 mg/dL (2.4-5.1); Potassium 3.7 mMol/L (3.4-5.1); Procalcitonin 0.68 ng/ml (0.0-0.49); Sodium 135 mMol/L (136-145); Total Protein 6.1 gm/dL (5.7-8.2); eGFR > 60 See Note
[2024-08-30 23:32] LABS: Carbon Dioxide 14.7 mMol/L (20.0-31.0)
[2024-08-30 23:49] LABS: Ammonia 151 uMol/L (11-32)
[2024-08-31] VITALS (17 sets, daily range): BP systolic 93–127; BP diastolic 58–92; PULSE 94–113; RESP 16–28; TEMP 36.1–37.2; O2SAT 97–100
[2024-08-31 00:19] LABS: Hepatitis A Antibody IgM Non Reactive (Non React); Hepatitis B Core Antibody IgM Non Reactive (Non React); Hepatitis B Surface Antigen Non Reactive (Non React); Hepatitis C Antibody Non Reactive (Non React)
[2024-08-31 00:21] LABS: Basophils # (Auto) 0.1 Thou/mm3 (0.0-0.2); Basophils % (Auto) 0 % (0-2.5); Eosinophils # (Auto) 0.1 Thou/mm3 (0.0-0.5); Eosinophils % (Auto) 1 % (0-10); Hematocrit 23.9 % (41.0-53.0); Immature Granulocytes % (Auto) 1 % (0-0); Immature Granulocytes Auto 0.14 Thou/mm3 (0.00-0.00); Lymphocytes # (Auto) 0.7 Thou/mm3 (1.0-4.8); Lymphocytes % (Auto) 3 % (10-50); Mean Corpuscular HGB Conc 32.6 g/dl (31.0-37.0); Mean Corpuscular Hemoglobin 26.4 pg (25.0-35.0); Mean Corpuscular Volume 81 fL (80-100); Monocytes # (Auto) 1.7 Thou/mm3 (0.0-0.8); Monocytes % (Auto) 9 % (0-12); Neutrophils # (Auto) 17.5 Thou/mm3 (1.8-7.7); Neutrophils % (Auto) 87 % (37-80); Nucleated Red Blood Cell % 0 /100 WBC (0); Platelet Count 105 Thou/mm3 (140-440); RDW Standard Deviation 62.1 fL (35.1-43.9); Red Blood Count 2.96 Miln/mm3 (4.50-5.90); White Blood Count 20.2 Thou/mm3 (3.8-10.6)
[2024-08-31 00:22] LABS: Hemoglobin 7.8 g/dL (13.5-16.0)
[2024-08-31 00:42] LABS: Lactate (Lactic Acid) 3.2 mMol/L (0.4-2.0)
[2024-08-31 00:52] LABS: Base Excess -9 (-3-3); HCO3 14 mEq/L (20-26); Inspired Oxygen, FIO2 21 %; O2 Saturation 101 % (91-98); PCO2 19 mmHg (32.0-48.0); PO2 149 mmHg (83-108); pH, Arterial 7.45 (7.35-7.45)
[2024-08-31] MEDS: PANTOPRAZOLE INJ 40 MG VIAL IVP ×3 (00:54→20:35)
[2024-08-31 00:55] LABS: Allen Test Not Performed; Puncture Site Right Radial
[2024-08-31] MEDS: OCTREOTIDE ACET INJ 1,000 MCG in SODIUM CHLORIDE 0.9% 100 ML 5.1 MCG IV (01:02)
[2024-08-31] MEDS: PHYTONADIONE INJ 10 MG/ML AMP SC (01:20)
--- NOTE | 2024-08-31 01:55 | PC.NURSE ---
Awaiting for meds from [facility] sup.
--- NOTE | 2024-08-31 03:29 | PC.NURSE ---
awaiting for meds from [facility] sup.
[2024-08-31] MEDS: SODIUM BICARB INJ 8.4% 1 mEq/ML VIAL 50 ML 50 MEQ IV ×2 (03:36→03:46)
[2024-08-31 03:39] LABS: Reflex Lactate? Y
[2024-08-31] MEDS: Magnesium Sulfate 4 GM Ivpb 4 GM/50 ML BAG IV (04:00)
[2024-08-31] MEDS: NAPH,KPH MBDB 1 PACKET (1.5 GM) PO (04:00)
[2024-08-31] MEDS: LACTULOSE SYRUP 20 GM/30 ML UDC 200 GM PR (04:01)
[2024-08-31 04:46] LABS: Lactic Acid, 3 HR 3.1 mMol/L (0.4-2.0)
[2024-08-31 05:24] LABS: Basophils # (Auto) 0.1 Thou/mm3 (0.0-0.2); Basophils % (Auto) 0 % (0-2.5); Eosinophils # (Auto) 0.1 Thou/mm3 (0.0-0.5); Eosinophils % (Auto) 0 % (0-10); Hematocrit 22.1 % (41.0-53.0); Immature Granulocytes % (Auto) 1 % (0-0); Immature Granulocytes Auto 0.18 Thou/mm3 (0.00-0.00); Lymphocytes # (Auto) 0.7 Thou/mm3 (1.0-4.8); Lymphocytes % (Auto) 4 % (10-50); Mean Corpuscular HGB Conc 31.7 g/dl (31.0-37.0); Mean Corpuscular Hemoglobin 25.9 pg (25.0-35.0); Mean Corpuscular Volume 82 fL (80-100); Monocytes # (Auto) 1.3 Thou/mm3 (0.0-0.8); Monocytes % (Auto) 7 % (0-12); Neutrophils % (Auto) 88 % (37-80); Nucleated Red Blood Cell % 0 /100 WBC (0); Partial Thromboplastin Time 44.8 Seconds (22.0-36.0); Platelet Count 84 Thou/mm3 (140-440); Prothrombin Time 20.9 Seconds (9.0-12.2); RDW Standard Deviation 63.4 fL (35.1-43.9); White Blood Count 19.3 Thou/mm3 (3.8-10.6)
[2024-08-31] MEDS: PIPER/TAZO 3.375 GM 3.375 GM/50 ML BAG IV ×3 (06:29→21:51)
[2024-08-31 06:48] LABS: Alanine Aminotransferase 68 U/L (10-49); Albumin, Serum 1.8 gm/dL (3.5-5.0); Albumin/Globulin Ratio 0.5 (1.2-2.2); Alkaline Phosphatase 113 U/L (46-116); Anion Gap 12 (7-16); Aspartate Amino Transferase 83 U/L (0-34); BUN/Creatinine Ratio 15 Ratio (12-20); Bilirubin,Total 13.6 mg/dL (0.3-1.2); Blood Urea Nitrogen 17 mg/dL (9-23); Calcium 6.9 mg/dL (8.3-10.6); Calcium (Corrected) 8.7 mg/dL (8.5-10.1); Carbon Dioxide 15.5 mMol/L (20.0-31.0); Chloride 109 mMol/L (98-107); Creatinine (Component) 1.1 mg/dL (0.6-1.3); Estimated Creatinine Clearance 79.3 mL/min (>60); Globulin 3.6 gm/dL (2.3-3.5); Glucose 95 mg/dL (74-106); LDH (Lactate Dehydrogenase) 316 U/L (120-246); Magnesium 1.7 mg/dL (1.6-2.6); Osmolality,Calculated 273 (275-295); Potassium 4.1 mMol/L (3.4-5.1); Sodium 136 mMol/L (136-145); Total Protein 5.4 gm/dL (5.7-8.2); eGFR > 60 See Note
[2024-08-31] MEDS: THIAMINE 100 MG TABLET PO (09:12)
[2024-08-31] MEDS: ALBUMIN HUMAN 25% IVPB 25 GM/100 ML BTL IV ×2 (09:12→20:36)
[2024-08-31] MEDS: FOLIC ACID 1 MG TABLET PO (09:12)
[2024-08-31] MEDS: LACTULOSE SYRUP 20 GM/30 ML UDC PO ×3 (09:12→21:50)
--- NOTE | 2024-08-31 09:27 | XR_ITS ---
Examination: Venous duplex lower extremity sonogram, bilateral. Date and time of exam: August 31, 2024 11:05 AM Indications: Bilateral leg weakness and swelling beginning August 17, 2024 Technique: Multiple sonographic images of the deep venous system have been obtained. B-mode/2-D grayscale imaging of vascular structures and Doppler spectral analysis (waveforms) and color performed Both legs are examined. Findings: Deep venous systems do not demonstrate abnormal echogenicity. All visualized deep veins exhibit compressibility. All visualized deep veins exhibit augmentation. Impression: Negative for deep vein thrombosis
[2024-08-31] MEDS: NICOTINE PATCH 14 MG/24 HR PATCH.TD24 TOP (11:31)
[2024-08-31] MEDS: predniSONE 20 MG TABLET 40 MG PO (11:33)
--- NOTE | 2024-08-31 12:54 | PRELIM_ITS ---
Bilateral lower extremity venous Doppler ultrasound. August 31, 2024 1105 hours Clinical history: Lower extremity edema, erythema and hx of liver cirrhosis Technique: Duplex scan of the bilateral lower extremity deep venous systems was performed utilizing 2D grayscale imaging, Doppler spectral analysis and color flow Doppler and with compression. Comparison: None. Findings: Holbrook scale, color flow and spectral Doppler evaluation of the lower extremity deep veins was performed. Right: The common femoral, superficial femoral and popliteal veins are patent and compressible. Normal respiratory variation and augmentation is noted. There is no evidence of occlusive or nonocclusive thrombus. The great saphenous vein is patent at the level of the saphenofemoral junction. Left: The common femoral, superficial femoral and popliteal veins are patent and compressible. Normal respiratory variation and augmentation is noted. There is no evidence of occlusive or nonocclusive thrombus. The great saphenous vein is patent at the level of the saphenofemoral junction. Impression: No sonographic evidence of deep venous thrombosis in both lower extremities. Report Electronically Signed By: Rajiv Cope 08/31/2024 12:53:20 PM [EST]
--- NOTE | 2024-08-31 14:13 | ESPR_ITS ---
<Statement entered by Nemesio Luna MD - 09/01/24 06:26> I discussed with and supervised the internet database specialist physician involved in the care of this patient. Patient assessment and plan was discussed with entire medicine team, including my attending. I agree with the assessment and plan as documented by internet database specialist doctor. Patient care was discussed with my attending physician Dr. Hamida Luna, PGY-2 Documentation for date of: 08/31/24 Subjective Subjective Interval history: 08/31/2024: Overnight admission for suspected SBP in the setting of end-stage liver disease. Patient will receive 1u of pRBC transfusion; however, will continue to monitor - there is one other pRBC on standby. Will continue to treat and wait for U/S guided diagnostic paracentesis for suspected SBP. Will add 20mg IV Lasix qday for +3 pitting edema as noted in addition to the albumin infusions. Will monitor for urine output (patient has Salazar placed now); if kidney function worsens will consult nephrology for recommendations. Exam Vital Signs Temp Pulse Resp BP Pulse Ox O2 Del Method 97.4 F 101 H 24 H 114/80 100 Room Air 08/31/24 12:32 08/31/24 12:32 08/31/24 12:32 08/31/24 12:32 08/31/24 12:32 08/31/24 12:32 Narrative Exam Physical exam GENERAL: Patient is awake, answering questions appropriately, appears stated age, jaundiced HEENT: PERRLA, EOMI, oropharynx clear. Scleral icterus present HEART: Sinus tachycardia with regular rhythm, normal S1/S2, no m/r/g LUNGS: CTAB. No crackles, rales, rhonchi or wheezing ABDOMEN: Soft, diffusely distended, mild fluid wave noted. Nontender on palpation EXTREMITIES: Bilateral +3 lower extremity pitting edema up to hips, erythema noted on bilateral shins, no pain elicited with dorsiflexion or plantarflexion NEUROLOGICAL: Alert oriented x 3, no focal neurologic deficits, moves extremities x 4 Objective Labs 09/01/24 05:03 09/01/24 05:03 Labs: Laboratory Results - last 24 hr 08/30/24 08/30/24 08/30/24 13:27 17:44 22:42 WBC 16.0 H 20.2 H RBC 2.93 L 2.96 L Hgb 7.6 L 7.8 L Hct 23.9 L 23.9 L MCV 82 81 MCH 25.9 26.4 MCHC 31.8 32.6 RDW Std Deviation 63.0 H 62.1 H Plt Count 99 L D 105 L Neut % (Auto) 87 H 87 H Lymph % (Auto) 4 L 3 L Mclean % (Auto) 7 9 Eos % (Auto) 1 1 Baso % (Auto) 0 0 Neut # (Auto) 14.0 H 17.5 H Lymph # (Auto) 0.6 L 0.7 L Mclean # (Auto) 1.2 H 1.7 H Eos # (Auto) 0.1 0.1 Baso # (Auto) 0.0 0.1 Immature Gran # (Auto) 0.12 H 0.14 H Absolute Nucleated RBC 0.00 0.00 Immature Gran % 1 H 1 H Nucleated RBC % 0 0 PT INR APTT Puncture Site ABG pH ABG pCO2 ABG pO2 ABG HCO3 ABG O2 Saturation ABG Base Excess FiO2 Sodium 132 L 135 L Potassium 3.6 3.7 Chloride 108 H 111 H Carbon Dioxide 13.8 L* 14.7 L* Anion Gap 10 9 BUN 17 15 Creatinine 1.0 0.9 Estim Creat Clear Calc 87.2 96.9 eGFR > 60 > 60 BUN/Creatinine Ratio 17 17 Glucose 175 H 93 D Calculated Osmolality 270 L 270 L Lactic Acid 5.8 H* Calcium 7.0 L 7.2 L Corrected Calcium 8.6 8.8 Phosphorus 2.3 L Magnesium 1.6 Total Bilirubin 15.3 H 14.7 H D Direct Bilirubin 10.9 H AST 46 H 41 H ALT 76 H 71 H Alkaline Phosphatase 140 H 138 H Ammonia Lactate Dehydrogenase Total Protein 5.9 6.1 Albumin 2.0 L 2.0 L Globulin 3.9 H 4.1 H Albumin/Globulin Ratio 0.5 L 0.5 L Procalcitonin 0.68 H Hepatitis A IgM Ab Non Reactive Hep Bs Antigen Non Reactive Hep B Core IgM Ab Non Reactive Hepatitis C Antibody Non Reactive Blood Type A Positive Antibody Screen POSITIVE Antibody Identification Anti-Jka Crossmatch See Detail Blood Bank Wristband ID Yes 08/30/24 08/31/24 08/31/24 22:48 00:36 04:35 WBC 19.3 H RBC 2.70 L Hgb 7.0 L Hct 22.1 L MCV 82 MCH 25.9 MCHC 31.7 RDW Std Deviation 63.4 H Plt Count 84 L Neut % (Auto) 88 H Lymph % (Auto) 4 L Mclean % (Auto) 7 Eos % (Auto) 0 Baso % (Auto) 0 Neut # (Auto) 17.0 H Lymph # (Auto) 0.7 L Mclean # (Auto) 1.3 H Eos # (Auto) 0.1 Baso # (Auto) 0.1 Immature Gran # (Auto) 0.18 H Absolute Nucleated RBC 0.00 Immature Gran % 1 H Nucleated RBC % 0 PT 20.9 H INR 2.0 H APTT 44.8 H Puncture Site Right Radial ABG pH 7.45 ABG pCO2 19 L* ABG pO2 149 H ABG HCO3 14 L ABG O2 Saturation 101 H ABG Base Excess -9 L FiO2 21 Sodium 136 Potassium 4.1 Chloride 109 H Carbon Dioxide 15.5 L Anion Gap 12 BUN 17 Creatinine 1.1 Estim Creat Clear Calc 79.3 eGFR > 60 BUN/Creatinine Ratio 15 Glucose 95 Calculated Osmolality 273 L Lactic Acid 3.2 H 3.1 H Calcium 6.9 L Corrected Calcium 8.7 Phosphorus Magnesium 1.7 Total Bilirubin 13.6 H D Direct Bilirubin AST 83 H ALT 68 H Alkaline Phosphatase 113 D Ammonia 151 H* Lactate Dehydrogenase 316 H Total Protein 5.4 L Albumin 1.8 L Globulin 3.6 H Albumin/Globulin Ratio 0.5 L Procalcitonin Hepatitis A IgM Ab Hep Bs Antigen Hep B Core IgM Ab Hepatitis C Antibody Blood Type Antibody Screen Antibody Identification Crossmatch Blood Bank Wristband ID ABG Interpretation ABG results: 08/31/24 00:36 ABG pH 7.45 ABG pCO2 19 L* ABG pO2 149 H ABG HCO3 14 L ABG O2 Saturation 101 H ABG Base Excess -9 L Quality Measures Quality Measures VTE prophylaxis (SCDs) Assessment & Plan Assessment Current Active Medications: Generic Name Dose Route Start Last Admin Trade Name Freq PRN Reason Stop Dose Admin Acetaminophen 650 mg 08/30/24 22:27 Acetaminophen 325 Mg Tablet PO 09/29/24 22:26 Q6H PRN Fever >101.5 Acetaminophen 650 mg 08/30/24 22:31 Acetaminophen Supp 650 Mg Supp MA 09/29/24 22:30 Q6H PRN PAIN SCALE 1-3 (mild Hydrocodone Bitart/Acetaminophen 1 tab 08/30/24 22:31 Hydrocodone/Apap 5/325 Tablet PO 09/04/24 22:30 Q4HR PRN PAIN SCALE 4-10(Mod-Sev Dextrose 25 ml 08/31/24 02:19 Dextrose 50%-Water Inj 50 Ml Syringe IV 09/30/24 02:18 Q15MIN PRN BG 50-70 responsive npo pt Dextrose 50 ml 08/31/24 02:19 Dextrose 50%-Water Inj 50 Ml Syringe IV 09/30/24 02:18 Q15MIN PRN BG <50 OR BG <70 & pt unresponsive Folic Acid 1 mg 08/31/24 09:00 08/31/24 09:12 Folic Acid 1 Mg Tablet PO 09/30/24 08:59 1 mg QDAY CATHY Administration Furosemide 20 mg 08/31/24 12:15 Furosemide Inj 10 Mg/Ml Vial 2 Ml IVP 09/30/24 12:14 QDAY CATHY Glucagon 1 mg 08/31/24 02:19 Glucagon Inj 1 Mg Vial IM Q15MIN PRN BG <70, and no IV access Octreotide Acetate 1,000 mcg/ 252 mls @ 12.6 mls/hr 08/30/24 22:34 08/31/24 01:15 Sodium Chloride IV 09/29/24 22:33 Not Given .Q20H CATHY Protocol 50 MCG/HR Octreotide Acetate 1,000 mcg/ 102 mls @ 5.1 mls/hr 08/30/24 22:34 08/31/24 01:02 Sodium Chloride IV 08/31/24 18:33 50 mcg/hr .Q20H ONE 5.1 mls/hr Administration Protocol 50 MCG/HR Piperacillin/Tazobactam/Dextrose 3.375 gm in 50 mls @ 12.5 mls/hr 08/31/24 06:00 08/31/24 10:30 Zosyn IV 09/07/24 05:59 Infused Q8HR CATHY Infusion Albumin Human 25 gm in 100 mls @ 100 mls/hr 08/31/24 09:00 08/31/24 10:15 Albuminar-25 Ivpb IV 09/03/24 08:59 Infused BID CATHY Infusion Lactulose 20 gm 08/31/24 09:00 08/31/24 09:12 Lactulose Syrup 20 Gm/30 Ml Udc PO 09/30/24 08:59 20 gm TID CATHY Administration Protocol Midodrine 5 mg 08/31/24 12:01 Midodrine 5 Mg Tablet PO 09/30/24 13:59 TID PRN systolic bp <90 Nicotine 14 mg 08/31/24 09:00 08/31/24 11:31 Nicotine Patch 14 Mg/24 Hr Patch.Td24 TOP 09/30/24 08:59 14 mg QDAY CATHY Administration Ondansetron HCl 4 mg 08/30/24 22:31 Ondansetron Inj 2 Mg/Ml Inj 2 Ml IV 09/29/24 22:30 Q6H PRN NAUSEA OR VOMITING Protocol Pantoprazole Sodium 40 mg 08/30/24 22:35 08/31/24 09:12 Pantoprazole Inj 40 Mg Vial IVP 09/29/24 22:34 40 mg Q12HR CATHY Administration Prednisone 40 mg 08/31/24 09:00 08/31/24 11:33 Prednisone 20 Mg Tablet PO 09/28/24 08:59 40 mg QDAY CATHY Administration Sennosides 1 tab 08/30/24 22:31 Senna Tablet PO 09/29/24 22:30 QDAY PRN constipation Protocol Thiamine HCl 100 mg 08/31/24 09:00 08/31/24 09:12 Thiamine 100 Mg Tablet PO 09/30/24 08:59 100 mg QDAY CATHY Administration Plan 44-year-old male with past medical history of alcohol abuse, alcoholic cirrhosis status post variceal banding from GI bleed performed on 08/07/24 showing grade 1 esophageal varices and colonoscopy performed on 08/08/2024 showing hemorrhoids presented with abdominal discomfort, possible blood in stool, significant lower extremity edema with difficult urination from couple of days. Patient is admitted for sepsis likely secondary to SBP with underlying history of alcohol induced liver cirrhosis and anasarca. #Sepsis likely secondary to SBP #Alcohol induced decompensated liver cirrhosis and ascites with anasarca #Leukocytosis #Hyperbilirubinemia #Coagulopathy #Thrombocytopenia #Hypoalbuminemia #Hyperammonemia Patient presented from PCP follow-up with increased abdominal girth, decreased urination, abdominal pain and bilateral lower extremity edema Patient has quit drinking alcohol a month ago and is currently AOx3. Labs were significant for leukocytosis white count 16, normocytic anemia hemoglobin 7.6 and elevated LFTs with elevated T. bili and direct bili. MDF score 42.3 point Poor Prognosis Child Hale score C 11 points In the ED, patient was mildly hypotensive blood pressure 99/70, heart rate 110 bpm, respiratory rate 22 and temp 99. He was saturating well on room air. Abdominal ultrasound showed minimal ascites fluid. Abdominal x-ray showed small bowel ileus CT abdominal pelvis showed small right pleural effusion, cirrhosis, splenomegaly, moderate ascites, perigastric varices, 25 mm fat containing umbilical hernia Chest x-ray showed no active disease. In the ED, patient received 2 L bolus of fluids and Zosyn x 1. Patient met 2/4 SIRS criteria with tachycardia, leukocytosis and possible source of infection with elevated lactic acid. Plan: Continue IV antibiotics Zosyn 3.375 g Q6 hourly, [08/30? Started IV Lasix 20 mg daily Continue lactulose 10 mg 3 times daily as needed Continue prednisone 40 mg for 28 days as MDF 42.3 points Pending diagnostic paracentesis for SBP with fluid analysis IV albumin 25 mg twice daily GI consulted, appreciate recommendations Replete electrolytes as necessary Ordered vitamin K 10 mg subcu x 1 Bleeding precautions Avoiding hepatotoxic agents #Decreased urination Patient reported to have decreasing output. Kidney function showed BUN 15 and creatinine 0.9 Patient received 2 L bolus of fluid x 1 in the ED per sepsis protocol Plan: Bladder scan ordered, shows 500 cc of urine Salazar catheter in Avoid nephrotoxic agents Renally dose medications #Normocytic anemia #History of GI bleed #History of gastric esophageal versus s/p banding on 08/07/24 #History of hemorrhoids per colonoscopy on 08/08/24 Labs were significant for hemoglobin 7.6 to 7.8 History of IR embolization and massive blood transfusion protocol was given during previous admission 08/31/2024: Hemoglobin did downtrend from 7.8-7.0 Plan: Morning iron panel and ferritin ordered Continue octreotide and Protonix As above, GI consulted atul recs Will transfuse 1 unit PRBC, 1 unit on standby #Non-anion gap metabolic acidosis #Respiratory alkalosis Chemistry panel was significant for sodium 132 and chloride 108 and non-anion gap metabolic acidosis with bicarb 13.8 and anion gap 10. Kidney function showed BUN 17 and creatinine 1.1 with baseline creatinine 0.8 from 08/26/2024. Lactic acid was elevated at 5.9--> 3.2 ABGs showed pH 7.45, pCO2 19, pO2 149, bicarb 14.7 on CHEM panel FiO2 21% Most likely Primary Respiratory Alkalosis, Chronic, with: Secondary Metabolic Acidosis and Additional Non-Gap Metabolic Acidosis. NAGMA could be related to RTA 2 ampoule of bicarb given by admitting team Based on bicarb, expected pCO2 is 29?2; however, pCO2 on ABG shows 19 Delta delta is -8.5 which equates to mixed non-anion gap metabolic acidosis along with respiratory alkalosis Patient's respiratory alkalosis is likely secondary to increased work of breathing Non-anion gap metabolic acidosis could be secondary to an RTA; however, more likely secondary to cirrhosis and/or GI loss from bleed Plan: Treating underlying infection with IV antibiotics to reduce respiratory alkalotic state Pending urine electrolyte Hospital Management: Lines: PIV Diet: N.p.o. Bowel: Lactulose GI prophylaxis: Protonix 40 mg IV daily twice daily, octreotide drip DVT prophylaxis: SCDs Disposition: Pending ultrasound-guided diagnostic paracentesis for likely SBP Code: Full Patient seen and assessed with attending Dr. Benavides and senior resident Dr. Cheryl Schwarz, PGY-1 Attending Provider Attestation/Addendum I attest that I was physically present for the evaluation, physical examination, lab and imaging review of the patient with the residents. I discussed the case with the residents and agree with the findings and plans of care as documented above. Parish Benavides MD
--- NOTE | 2024-08-31 14:20 | PC.NURSE ---
took over care of pt at this time. received report from Dung leiva.
--- NOTE | 2024-08-31 14:50 | PC.NURSE ---
martinez cath placed at this time. 450ml output noted
[2024-08-31] MEDS: FUROSEMIDE INJ 10 MG/ML VIAL 2 ML 20 MG IVP (15:33)
[2024-08-31 16:53] LABS: Base Excess, Venous -12 (-3-3); O2 Saturation, Venous 76 % (96-97); PCO2, Venous 24 mmHg (36-56); PO2, Venous 41 mmHg (15-58); pH, Venous 7.35 (7.33-7.66)
--- NOTE | 2024-08-31 17:42 | PC.NURSE ---
report given to Merlyn on tele floor. pt to go to room 279
--- NOTE | 2024-08-31 18:40 | PD.IMCONS ---
HPI Data of Consult Requesting Physician: Clinton Jensen MD Primary Care Provider: Physician No Primary/Family Consult Narrative Reason for consult: pain abdomen pedal edema in the setting of alcoholic liver disease History of present illness: 44 years old male being asked to evaluate at the request of the internal medicine team for abdominal pain leukocytosis and decompensated liver disease Patient had imaging studies done to do the paracentesis but there was not enough fluid to do so About 4 days ago he had paracentesis requiring removal of 4.6 L of fluid I know this patient well from last admission requiring band ligation of the esophageal varices In the colonoscopy was negative cc:: cc: Clinton Jensen MD Review of Systems Review of Systems Systems Reviewed: All systems reviewed, normal except as documented Past Medical History Surgical History OTHER SURGICAL HX: As in the history of present illness Meds Home Medications and Allergies Allergies Allergy/AdvReac Type Severity Reaction Status Date / Time No Known Allergies Allergy Verified 08/30/24 12:42 Exam Vital Signs Temp Pulse Resp BP Pulse Ox O2 Del Method 98.7 F 102 H 22 H 116/66 100 Room Air 08/31/24 18:04 08/31/24 18:04 08/31/24 18:04 08/31/24 18:04 08/31/24 18:04 08/31/24 18:04 Constitutional Comments: Chronically ill-appearing Routine Respiratory Exam Comments: Decreased breath sounds Routine Abdominal Exam Comments: Positive for ascites Results Labs 08/31/24 04:35 08/31/24 04:35 Labs: Short CBC 08/30/24 08/31/24 Range/Units 22:42 04:35 WBC 20.2 H 19.3 H (3.8-10.6) Thou/mm3 Hgb 7.8 L 7.0 L (13.5-16.0) g/dL Hct 23.9 L 22.1 L (41.0-53.0) % Plt Count 105 L 84 L (140-440) Thou/mm3 BMP 08/30/24 08/31/24 22:42 04:35 Sodium 135 L 136 Potassium 3.7 4.1 Chloride 111 H 109 H Carbon Dioxide 14.7 L* 15.5 L BUN 15 17 Creatinine 0.9 1.1 Glucose 93 D 95 Calcium 7.2 L 6.9 L Liver Function 08/30/24 08/31/24 Range/Units 22:42 04:35 Total Bilirubin 14.7 H D 13.6 H D (0.3-1.2) mg/dL AST 41 H 83 H (0-34) U/L ALT 71 H 68 H (10-49) U/L Alkaline Phosphatase 138 H 113 D (46-116) U/L Albumin 2.0 L 1.8 L (3.5-5.0) gm/dL ABG Interpretation ABG results: 08/31/24 08/31/24 00:36 16:50 ABG pH 7.45 ABG pCO2 19 L* ABG pO2 149 H ABG HCO3 14 L ABG O2 Saturation 101 H ABG Base Excess -9 L VBG pH 7.35 VBG pCO2 24 L VBG pO2 41 VBG Base Excess -12 L Assessment and Plan Additional Assessment & Plan Additional Plan: # Acute decompensation of the chronic liver disease secondary to alcohol MELD score of 32 Patient has stopped drinking since his last admission Continue to monitor LFTs. 1 L p.o. fluid restriction in 24 hours 2 g sodium diet # Possibly SBP broad-spectrum IV antibiotics # Perigastric and esophageal varices Repeat upper endoscopy prior to discharge for further band ligation of the esophageal varices Will follow the patient
[2024-08-31] MEDS: OCTREOTIDE ACET IV (19:39)
[2024-08-31] MEDS: SODIUM CHLORIDE 0.9% IV (19:39)
[2024-08-31 21:53] LABS: Chloride,Urine Random 41.3 mMol/L (55.0-125.0); Creatinine,Random Urine 68 mg/dL (30-125); Potassium,Urine Random 47 mMol/L (12-62); Sodium,Urine Random 15.1 mMol/L (20.0-110.0)
[2024-09-01] VITALS (21 sets, daily range): BP systolic 96–124; BP diastolic 62–83; PULSE 84–105; RESP 13–99; TEMP 36.1–36.8; O2SAT 96–100; BMI 31.2
[2024-09-01 00:58] LABS: OBS Card Lot # 22002; OBS Developer Lot # 28005; OBS Performed By fabil; OBS QC OK? Yes; Occult Blood, Stool Negative (Negative)
[2024-09-01] MEDS: PIPER/TAZO 3.375 GM 3.375 GM/50 ML BAG IV ×3 (05:46→21:46)
[2024-09-01] MEDS: LACTULOSE SYRUP 20 GM/30 ML UDC PO (05:46)
[2024-09-01 05:53] LABS: Basophils % (Auto) 0 % (0-2.5); Eosinophils % (Auto) 0 % (0-10); Hematocrit 22.7 % (41.0-53.0); Immature Granulocytes % (Auto) 1 % (0-0); Immature Granulocytes Auto 0.13 Thou/mm3 (0.00-0.00); Lymphocytes # (Auto) 0.6 Thou/mm3 (1.0-4.8); Lymphocytes % (Auto) 4 % (10-50); Mean Corpuscular HGB Conc 32.6 g/dl (31.0-37.0); Mean Corpuscular Hemoglobin 26.7 pg (25.0-35.0); Mean Corpuscular Volume 82 fL (80-100); Monocytes % (Auto) 7 % (0-12); Neutrophils # (Auto) 12.5 Thou/mm3 (1.8-7.7); Neutrophils % (Auto) 88 % (37-80); Nucleated Red Blood Cell % 0 /100 WBC (0); Platelet Count 74 Thou/mm3 (140-440); Red Blood Count 2.77 Miln/mm3 (4.50-5.90); White Blood Count 14.2 Thou/mm3 (3.8-10.6)
[2024-09-01 05:57] LABS: Hemoglobin 7.4 g/dL (13.5-16.0)
[2024-09-01 06:09] LABS: INR 1.8 (0.9-1.3); Prothrombin Time 18.8 Seconds (9.0-12.2)
[2024-09-01 06:22] LABS: Ferritin 37 ng/mL (10.5-307.3)
[2024-09-01 06:29] LABS: Slide Review Platelets confirmed
[2024-09-01 06:56] LABS: Alanine Aminotransferase 54 U/L (10-49); Albumin, Serum 2.3 gm/dL (3.5-5.0); Albumin/Globulin Ratio 0.7 (1.2-2.2); Alkaline Phosphatase 110 U/L (46-116); Anion Gap 13 (7-16); Aspartate Amino Transferase 37 U/L (0-34); BUN/Creatinine Ratio 19 Ratio (12-20); Bilirubin,Total 16.2 mg/dL (0.3-1.2); Blood Urea Nitrogen 17 mg/dL (9-23); Calcium 7.8 mg/dL (8.3-10.6); Calcium (Corrected) 9.2 mg/dL (8.5-10.1); Carbon Dioxide 16.5 mMol/L (20.0-31.0); Chloride 111 mMol/L (98-107); Creatinine (Component) 0.9 mg/dL (0.6-1.3); Estimated Creatinine Clearance 111.3 mL/min (>60); Globulin 3.4 gm/dL (2.3-3.5); Glucose 110 mg/dL (74-106); Magnesium 2.1 mg/dL (1.6-2.6); Osmolality,Calculated 281 (275-295); Potassium 3.1 mMol/L (3.4-5.1); Sodium 140 mMol/L (136-145); Total Protein 5.7 gm/dL (5.7-8.2); eGFR > 60 See Note
[2024-09-01 08:23] LABS: Phosphorous 2.4 mg/dL (2.4-5.1)
[2024-09-01] MEDS: ALBUMIN HUMAN 25% IVPB 25 GM/100 ML BTL IV ×2 (08:37→21:46)
[2024-09-01] MEDS: PANTOPRAZOLE INJ 40 MG VIAL IVP ×2 (08:37→21:46)
[2024-09-01] MEDS: FUROSEMIDE INJ 10 MG/ML VIAL 2 ML 20 MG IVP (08:37)
[2024-09-01] MEDS: NICOTINE PATCH 14 MG/24 HR PATCH.TD24 TOP (08:37)
[2024-09-01] MEDS: POT PHOS 15 mMol in NS 250 ML 15 MMOL/250 ML BAG 62.5 MMOL IV (10:51)
[2024-09-01 11:57] LABS: Lactate (Lactic Acid) 3.5 mMol/L (0.4-2.0)
--- NOTE | 2024-09-01 13:26 | ESPR_ITS ---
<Statement entered by Nemesio Luna MD - 09/02/24 07:04> I discussed with and supervised the international marketing specialist physician involved in the care of this patient. Patient assessment and plan was discussed with entire medicine team, including my attending. I agree with the assessment and plan as documented by international marketing specialist doctor. Patient care was discussed with my attending physician Dr. Kennedy Luna, PGY-2 Documentation for date of: 09/01/24 Subjective Subjective Interval history: 09/01/2024: No acute overnight events to report. Patient had 1 unit of PRBC transfused and hemoglobin went from 7.0-7.4 on repeat H&H. Patient also had 2 bowel movements and has been eating 100% of meals; patient has a Salazar catheter with 2.2 L of urine output over 24 hours. On examination, patient has some drainage from past paracentesis site/bandaged area seeping yellow fluid. Patient has a scheduled endoscopy procedure with Dr. Orozco this afternoon (09/01). Patient continues to be on IV Zosyn for suspected SBP; however, unable to do diagnostic/therapeutic paracentesis at this time. Received a call with the patient has been having stools with streaks of blood; however, will transfuse remaining 1 unit PRBC and continue monitoring for slightly uptrending lactic acid. Patient symptoms are better controlled and he is on room air. Exam Vital Signs Temp Pulse Resp BP Pulse Ox O2 Del Method 97.8 F 95 20 110/70 99 Room Air 09/01/24 13:08 09/01/24 13:08 09/01/24 13:09/01/24 13:09/01/24 13:09/01/24 12:00 Narrative Exam Physical exam GENERAL: Patient is awake, answering questions appropriately, appears stated age, jaundiced HEENT: PERRLA, EOMI, oropharynx clear. Scleral icterus present HEART: Sinus tachycardia with regular rhythm, normal S1/S2, no m/r/g LUNGS: CTAB. No crackles, rales, rhonchi or wheezing ABDOMEN: Soft, diffusely distended, mild fluid wave noted. Nontender on palpation. Past paracentesis site bandaged and draining yellow fluid. EXTREMITIES: Bilateral +2 lower extremity pitting edema up to hips, erythema noted on bilateral shins, no pain elicited with dorsiflexion or plantarflexion NEUROLOGICAL: Alert oriented x 3, no focal neurologic deficits, moves extremities x 4 Objective Labs 09/03/24 08:36 09/03/24 08:36 Labs: Laboratory Results - last 24 hr 08/30/24 08/31/24 08/31/24 13:27 16:50 20:05 WBC RBC Hgb Hct MCV MCH MCHC RDW Std Deviation Plt Count Neut % (Auto) Lymph % (Auto) [place] % (Auto) Eos % (Auto) Baso % (Auto) Neut # (Auto) Lymph # (Auto) [place] # (Auto) Eos # (Auto) Baso # (Auto) Immature Gran # (Auto) Absolute Nucleated RBC Immature Gran % Nucleated RBC % PT INR VBG pH 7.35 VBG pCO2 24 L VBG pO2 41 VBG O2 Sat ([place]) 76 L VBG Base Excess -12 L Sodium Potassium Chloride Carbon Dioxide Anion Gap BUN Creatinine Estim Creat Clear Calc eGFR BUN/Creatinine Ratio Glucose Calculated Osmolality Lactic Acid Calcium Corrected Calcium Phosphorus Magnesium Ferritin Total Bilirubin AST ALT Alkaline Phosphatase Total Protein Albumin Globulin Albumin/Globulin Ratio Ur Random Creatinine 68 Ur Random Sodium 15.1 L Ur Random Potassium 47 Ur Random Chloride 41.3 L Stool Occult Blood Misc Test Result Blood Type A Positive Antibody Screen POSITIVE Antibody Identification Anti-Jka Crossmatch See Detail Blood Bank Wristband ID Yes 08/31/24 09/01/24 09/01/24 23:30 05:03 11:47 WBC 14.2 H D RBC 2.77 L Hgb 7.4 L Hct 22.7 L MCV 82 MCH 26.7 MCHC 32.6 RDW Std Deviation 60.0 H Plt Count 74 L Neut % (Auto) 88 H Lymph % (Auto) 4 L [place] % (Auto) 7 Eos % (Auto) 0 Baso % (Auto) 0 Neut # (Auto) 12.5 H Lymph # (Auto) 0.6 L [place] # (Auto) 1.0 H Eos # (Auto) 0.0 Baso # (Auto) 0.0 Immature Gran # (Auto) 0.13 H Absolute Nucleated RBC 0.00 Immature Gran % 1 H Nucleated RBC % 0 PT 18.8 H INR 1.8 H VBG pH VBG pCO2 VBG pO2 VBG O2 Sat ([place]) VBG Base Excess Sodium 140 Potassium 3.1 L D Chloride 111 H Carbon Dioxide 16.5 L Anion Gap 13 BUN 17 Creatinine 0.9 Estim Creat Clear Calc 111.3 eGFR > 60 BUN/Creatinine Ratio 19 Glucose 110 H Calculated Osmolality 281 Lactic Acid 3.5 H Calcium 7.8 L Corrected Calcium 9.2 Phosphorus 2.4 Magnesium 2.1 Ferritin 37 Total Bilirubin 16.2 H D AST 37 H ALT 54 H Alkaline Phosphatase 110 Total Protein 5.7 Albumin 2.3 L D Globulin 3.4 Albumin/Globulin Ratio 0.7 L Ur Random Creatinine Ur Random Sodium Ur Random Potassium Ur Random Chloride Stool Occult Blood Negative Misc Test Result Platelets confirmed Blood Type Antibody Screen Antibody Identification Crossmatch Blood Bank Wristband ID ABG Interpretation ABG results: 08/31/24 08/31/24 00:36 16:50 ABG pH 7.45 ABG pCO2 19 L* ABG pO2 149 H ABG HCO3 14 L ABG O2 Saturation 101 H ABG Base Excess -9 L VBG pH 7.35 VBG pCO2 24 L VBG pO2 41 VBG Base Excess -12 L Quality Measures Quality Measures VTE prophylaxis (SCDs) Assessment & Plan Assessment Current Active Medications: Generic Name Dose Route Start Last Admin Trade Name Freq PRN Reason Stop Dose Admin Acetaminophen 650 mg 08/30/24 22:27 Acetaminophen 325 Mg Tablet PO 09/29/24 22:26 Q6H PRN Fever >101.5 Acetaminophen 650 mg 08/30/24 22:31 Acetaminophen Supp 650 Mg Supp WV 09/29/24 22:30 Q6H PRN PAIN SCALE 1-3 (mild Hydrocodone Bitart/Acetaminophen 1 tab 08/30/24 22:31 Hydrocodone/Apap 5/325 Tablet PO 09/04/24 22:30 Q4HR PRN PAIN SCALE 4-10(Mod-Sev Dextrose 25 ml 08/31/24 02:19 Dextrose 50%-Water Inj 50 Ml Syringe IV 09/30/24 02:18 Q15MIN PRN BG 50-70 responsive npo pt Dextrose 50 ml 08/31/24 02:19 Dextrose 50%-Water Inj 50 Ml Syringe IV 09/30/24 02:18 Q15MIN PRN BG <50 OR BG <70 & pt unresponsive Folic Acid 1 mg 08/31/24 09:00 09/01/24 08:27 Folic Acid 1 Mg Tablet PO 09/30/24 08:59 Not Given QDAY CATHY Furosemide 20 mg 08/31/24 12:15 09/01/24 08:37 Furosemide Inj 10 Mg/Ml Vial 2 Ml IVP 09/30/24 12:14 20 mg QDAY CATHY Administration Glucagon 1 mg 08/31/24 02:19 Glucagon Inj 1 Mg Vial IM Q15MIN PRN BG <70, and no IV access Piperacillin/Tazobactam/Dextrose 3.375 gm in 50 mls @ 12.5 mls/hr 08/31/24 06:00 09/01/24 05:46 Zosyn IV 09/07/24 05:59 12.5 mls/hr Q8HR CATHY Administration Albumin Human 25 gm in 100 mls @ 100 mls/hr 08/31/24 09:00 09/01/24 08:37 Albuminar-25 Ivpb IV 09/03/24 08:59 100 mls/hr BID CATHY Administration Octreotide Acetate 1,000 mcg/ 252 mls @ 12.6 mls/hr 08/31/24 19:00 08/31/24 19:39 Sodium Chloride IV 09/30/24 18:59 50 mcg/hr .Q20H CATHY 12.6 mls/hr Administration Protocol 50 MCG/HR Lactulose 30 gm 09/01/24 14:00 Lactulose Syrup 20 Gm/30 Ml Udc PO 10/01/24 13:59 TID CATHY Protocol Midodrine 5 mg 08/31/24 12:01 Midodrine 5 Mg Tablet PO 09/30/24 13:59 TID PRN systolic bp <90 Nicotine 14 mg 08/31/24 09:00 09/01/24 08:37 Nicotine Patch 14 Mg/24 Hr Patch.Td24 TOP 09/30/24 08:59 14 mg QDAY CATHY Administration Ondansetron HCl 4 mg 08/30/24 22:31 Ondansetron Inj 2 Mg/Ml Inj 2 Ml IV 09/29/24 22:30 Q6H PRN NAUSEA OR VOMITING Protocol Pantoprazole Sodium 40 mg 08/30/24 22:35 09/01/24 08:37 Pantoprazole Inj 40 Mg Vial IVP 09/29/24 22:34 40 mg Q12HR CATHY Administration Prednisone 40 mg 08/31/24 09:00 09/01/24 08:27 Prednisone 20 Mg Tablet PO 09/28/24 08:59 Not Given QDAY CATHY Sennosides 1 tab 08/30/24 22:31 Senna Tablet PO 09/29/24 22:30 QDAY PRN constipation Protocol Thiamine HCl 100 mg 08/31/24 09:00 09/01/24 08:27 Thiamine 100 Mg Tablet PO 09/30/24 08:59 Not Given QDAY CATHY Plan 44-year-old male with past medical history of alcohol abuse, alcoholic cirrhosis status post variceal banding from GI bleed performed on 08/07/24 showing grade 1 esophageal varices and colonoscopy performed on 08/08/2024 showing hemorrhoids presented with abdominal discomfort, possible blood in stool, significant lower extremity edema with difficult urination from couple of days. Patient is admitted for sepsis likely secondary to SBP with underlying history of alcohol induced liver cirrhosis and anasarca. #Sepsis likely secondary to SBP #Alcohol induced decompensated liver cirrhosis and ascites with anasarca #Leukocytosis #Hyperbilirubinemia #Coagulopathy #Thrombocytopenia #Hypoalbuminemia #Hyperammonemia Patient presented from PCP follow-up with increased abdominal girth, decreased urination, abdominal pain and bilateral lower extremity edema Patient has quit drinking alcohol a month ago and is currently AOx3. Labs were significant for leukocytosis white count 16, normocytic anemia hemoglobin 7.6 and elevated LFTs with elevated T. bili and direct bili. MDF score 42.3 point Poor Prognosis Child Hale score C 11 points In the ED, patient was mildly hypotensive blood pressure 99/70, heart rate 110 bpm, respiratory rate 22 and temp 99. He was saturating well on room air. Abdominal ultrasound showed minimal ascites fluid. Abdominal x-ray showed small bowel ileus CT abdominal pelvis showed small right pleural effusion, cirrhosis, splenomegaly, moderate ascites, perigastric varices, 25 mm fat containing umbilical hernia Chest x-ray showed no active disease. In the ED, patient received 2 L bolus of fluids and Zosyn x 1. Patient met 2/4 SIRS criteria with tachycardia, leukocytosis and possible source of infection with elevated lactic acid. Plan: Continue IV antibiotics Zosyn 3.375 g Q6 hourly, [08/30? Continue IV Lasix 20 mg daily Increased to lactulose 30 mg 3 times daily as needed Continue prednisone 40 mg for 28 days as MDF 42.3 points Pending diagnostic and therapeutic paracentesis for SBP with fluid analysis IV albumin 25 mg twice daily GI consulted, appreciate recommendations Replete electrolytes as necessary Bleeding precautions Avoiding hepatotoxic agents #Non-anion gap metabolic acidosis #Respiratory alkalosis #Lactic acidosis Chemistry panel was significant for sodium 132 and chloride 108 and non-anion gap metabolic acidosis with bicarb 13.8 and anion gap 10. Kidney function showed BUN 17 and creatinine 1.1 with baseline creatinine 0.8 from 08/26/2024. Lactic acid was elevated at 5.9--> 3.2 ABGs showed pH 7.45, pCO2 19, pO2 149, bicarb 14.7 on CHEM panel FiO2 21% Most likely Primary Respiratory Alkalosis, Chronic, with: Secondary Metabolic Acidosis and Additional Non-Gap Metabolic Acidosis. NAGMA could be related to RTA 2 ampoule of bicarb given by admitting team Based on bicarb, expected pCO2 is 29?2; however, pCO2 on ABG shows 19 Delta delta is -8.5 which equates to mixed non-anion gap metabolic acidosis along with respiratory alkalosis Patient's respiratory alkalosis is likely secondary to increased work of breathing Non-anion gap metabolic acidosis could be secondary to an RTA; however, more likely secondary to cirrhosis and/or GI loss from bleed 21.0?mmol/L Urine anion gap positive Plan: Treating underlying infection with IV antibiotics to reduce respiratory alkalotic state Pending urine electrolyte Will consider consulting nephrology for possible RTA #Normocytic anemia #History of GI bleed #History of gastric esophageal versus s/p banding on 08/07/24 #History of hemorrhoids per colonoscopy on 08/08/24 Labs were significant for hemoglobin 7.6 to 7.8 History of IR embolization and massive blood transfusion protocol was given during previous admission 08/31/2024: Hemoglobin did downtrend from 7.8-7.0 09/01/2024: Hemoglobin uptrending from 7.0-7.4 after 1 unit PRBC Plan: Endoscopy planned for this afternoon 09/01 Morning iron panel ordered Continue octreotide and Protonix Will transfuse 1 unit PRBC Hospital Management: Lines: PIV Diet: N.p.o. Bowel: Lactulose GI prophylaxis: Protonix 40 mg IV daily twice daily, octreotide drip DVT prophylaxis: SCDs Disposition: Pending ultrasound-guided diagnostic paracentesis for likely SBP Code: Full Patient seen and assessed with attending Dr. Benavides and senior resident Dr. Cheryl Schwarz, PGY-1 Attending Provider Attestation/Addendum I attest that I was physically present for the evaluation, physical examination, lab and imaging review of the patient with the residents. I discussed the case with the residents and agree with the findings and plans of care as documented above. Parish Benavides MD
[2024-09-01 14:54] LABS: Reflex Lactate? Y
[2024-09-01 15:27] LABS: Lactic Acid, 3 HR 2.6 mMol/L (0.4-2.0)
[2024-09-01] MEDS: SODIUM CHLORIDE 0.9% IV (15:33)
[2024-09-01] MEDS: OCTREOTIDE ACET IV (15:33)
--- NOTE | 2024-09-01 15:58 | SUR.PREOP ---
PATIENT IN RECOVERY AWAITING TO GO INTO PROCEED, BLOOD IS TRANSFUSING, VITAL SIGNS STABLE, BREATHING UNLABORED, NO S/S OF REACTION, MONITORING PATIENT ON VITAL SIGNS MONITOR
--- NOTE | 2024-09-01 17:05 | SUR.PHASEI ---
pt received from OR in recovery bay 1. pt asleep but responds to voice, breathing unlabored on room air. v/s stable. report received from Aisha CONWAY.
--- NOTE | 2024-09-01 17:39 | SUR.PHASEI ---
pt asleep but responds to voice, breathing unlabored on room air. v/s stable. report called to Rosie CONWAY. pt will be transferred to room at this time.
[2024-09-01] MEDS: POTASSIUM CHLORIDE 10% 20 MEQ/15 ML UDC 40 MEQ PO (17:59)
[2024-09-01 19:54] LABS: Lactate (Lactic Acid) 2.9 mMol/L (0.4-2.0)
[2024-09-01 20:03] LABS: Hematocrit 26.7 % (41.0-53.0); Hemoglobin 9.1 g/dL (13.5-16.0)
[2024-09-01] MEDS: LACTULOSE SYRUP 20 GM/30 ML UDC 30 GM PO (21:47)
[2024-09-01 22:50] LABS: Reflex Lactate? Y
[2024-09-01 23:33] LABS: Lactic Acid, 3 HR 5.5 mMol/L (0.4-2.0)
[2024-09-01] MEDS: RINGERS LACTATED 500 ML 500 ML 999 ML IV (23:45)
[2024-09-02] VITALS (10 sets, daily range): BP systolic 109–127; BP diastolic 72–88; PULSE 81–110; RESP 16–100; TEMP 36.6–37.2; O2SAT 97–100; BMI 31.3; BMI 31.4
[2024-09-02] MEDS: LACTULOSE SYRUP 20 GM/30 ML UDC 30 GM PO ×3 (06:07→21:10)
[2024-09-02] MEDS: PIPER/TAZO 3.375 GM 3.375 GM/50 ML BAG IV (06:07)
[2024-09-02 06:55] LABS: Basophils % (Auto) 0 % (0-2.5); Eosinophils # (Auto) 0.1 Thou/mm3 (0.0-0.5); Eosinophils % (Auto) 1 % (0-10); Immature Granulocytes % (Auto) 1 % (0-0); Immature Granulocytes Auto 0.06 Thou/mm3 (0.00-0.00); Lymphocytes # (Auto) 0.9 Thou/mm3 (1.0-4.8); Lymphocytes % (Auto) 9 % (10-50); Mean Corpuscular HGB Conc 33.2 g/dl (31.0-37.0); Mean Corpuscular Hemoglobin 26.9 pg (25.0-35.0); Mean Corpuscular Volume 81 fL (80-100); Monocytes # (Auto) 0.7 Thou/mm3 (0.0-0.8); Monocytes % (Auto) 7 % (0-12); Neutrophils # (Auto) 8.6 Thou/mm3 (1.8-7.7); Neutrophils % (Auto) 82 % (37-80); Nucleated Red Blood Cell % 0 /100 WBC (0); Platelet Count 71 Thou/mm3 (140-440); RDW Standard Deviation 57.1 fL (35.1-43.9); Red Blood Count 3.09 Miln/mm3 (4.50-5.90); White Blood Count 10.4 Thou/mm3 (3.8-10.6)
[2024-09-02 07:03] LABS: INR 1.7 (0.9-1.3); Prothrombin Time 18.2 Seconds (9.0-12.2)
[2024-09-02 07:06] LABS: Alanine Aminotransferase 55 U/L (10-49); Albumin, Serum 2.4 gm/dL (3.5-5.0); Albumin/Globulin Ratio 0.7 (1.2-2.2); Alkaline Phosphatase 98 U/L (46-116); Anion Gap 10 (7-16); Aspartate Amino Transferase 69 U/L (0-34); BUN/Creatinine Ratio 16 Ratio (12-20); Bilirubin,Total 17.4 mg/dL (0.3-1.2); Blood Urea Nitrogen 13 mg/dL (9-23); Calcium (Corrected) 9.3 mg/dL (8.5-10.1); Carbon Dioxide 19.6 mMol/L (20.0-31.0); Chloride 110 mMol/L (98-107); Creatinine (Component) 0.8 mg/dL (0.6-1.3); Estimated Creatinine Clearance 125.2 mL/min (>60); Globulin 3.3 gm/dL (2.3-3.5); Glucose 98 mg/dL (74-106); Magnesium 1.7 mg/dL (1.6-2.6); Osmolality,Calculated 279 (275-295); Potassium 3.2 mMol/L (3.4-5.1); Sodium 140 mMol/L (136-145); Total Protein 5.7 gm/dL (5.7-8.2); eGFR > 60 See Note
[2024-09-02 07:23] LABS: Hemoglobin 8.3 g/dL (13.5-16.0)
[2024-09-02 07:52] LABS: Slide Review Platelets confirmed
[2024-09-02] MEDS: PANTOPRAZOLE INJ 40 MG VIAL IVP ×2 (08:00→20:53)
[2024-09-02] MEDS: ALBUMIN HUMAN 25% IVPB 25 GM/100 ML BTL IV ×2 (08:01→20:59)
[2024-09-02] MEDS: FUROSEMIDE INJ 10 MG/ML VIAL 2 ML 20 MG IVP (08:01)
[2024-09-02] MEDS: predniSONE 20 MG TABLET 40 MG PO (08:02)
[2024-09-02] MEDS: FOLIC ACID 1 MG TABLET PO (08:02)
[2024-09-02] MEDS: NICOTINE PATCH 14 MG/24 HR PATCH.TD24 TOP (08:02)
[2024-09-02] MEDS: THIAMINE 100 MG TABLET PO (08:02)
[2024-09-02 08:03] LABS: Total Iron Binding Capacity 191 mcg/dL (250-425)
[2024-09-02 08:12] LABS: Iron 34 mcg/dL (65-175); Percent Iron Saturation 17 % (20-55); Unsaturated Iron Binding 157 (225-295)
[2024-09-02] MEDS: POTASSIUM CHLORIDE 20 mEq TABCR 40 MEQ PO (10:13)
[2024-09-02] MEDS: POTASSIUM CHL 10 mEq IVPB 10 MEQ/100 ML BAG 100 MEQ IV (10:14)
[2024-09-02 12:12] LABS: Lactate (Lactic Acid) 4.3 mMol/L (0.4-2.0)
[2024-09-02] MEDS: PIPER/TAZO INJ 3.375 GM in SODIUM CHLORIDE 0.9% (P) 50 ML IV (13:53)
[2024-09-02 14:58] LABS: Reflex Lactate? Y
[2024-09-02] MEDS: OCTREOTIDE ACET IV (16:57)
[2024-09-02] MEDS: SODIUM CHLORIDE 0.9% IV (16:57)
[2024-09-02 17:01] LABS: Lactic Acid, 3 HR 6.2 mMol/L (0.4-2.0)
--- NOTE | 2024-09-02 17:45 | PD.IMPROG ---
Documentation for date of: 09/02/24 Subjective Subjective Interval history: Patient status post band ligation of the esophageal varices Hemoglobin hematocrit 8.3 and 25.0 Exam Vital Signs Temp Pulse Resp BP Pulse Ox O2 Del Method O2 Flow Rate 98.5 F 110 H 22 H 127/80 100 Room Air 3 09/02/24 12:00 09/02/24 16:00 09/02/24 12:00 09/02/24 12:00 09/02/24 12:00 09/02/24 12:00 09/01/24 17:53 Objective Labs 09/02/24 05:52 09/02/24 05:52 Labs: Laboratory Results - last 24 hr 09/01/24 09/01/24 09/02/24 19:35 23:09 05:52 WBC 10.4 RBC 3.09 L Hgb 9.1 L D 8.3 L Hct 26.7 L 25.0 L MCV 81 MCH 26.9 MCHC 33.2 RDW Std Deviation 57.1 H Plt Count 71 L Neut % (Auto) 82 H Lymph % (Auto) 9 L [place] % (Auto) 7 Eos % (Auto) 1 Baso % (Auto) 0 Neut # (Auto) 8.6 H Lymph # (Auto) 0.9 L [place] # (Auto) 0.7 Eos # (Auto) 0.1 Baso # (Auto) 0.0 Immature Gran # (Auto) 0.06 H Absolute Nucleated RBC 0.00 Immature Gran % 1 H Nucleated RBC % 0 PT 18.2 H INR 1.7 H Sodium 140 Potassium 3.2 L Chloride 110 H Carbon Dioxide 19.6 L Anion Gap 10 BUN 13 Creatinine 0.8 Estim Creat Clear Calc 125.2 eGFR > 60 BUN/Creatinine Ratio 16 Glucose 98 Calculated Osmolality 279 Lactic Acid 2.9 H 5.5 H* Calcium 8.0 L Corrected Calcium 9.3 Magnesium 1.7 Iron 34 L TIBC 191 L Iron Saturation 17 L Unsat Iron Binding 157 L Total Bilirubin 17.4 H D AST 69 H ALT 55 H Alkaline Phosphatase 98 Total Protein 5.7 Albumin 2.4 L Globulin 3.3 Albumin/Globulin Ratio 0.7 L Misc Test Result Platelets confirmed 09/02/24 09/02/24 11:45 16:26 WBC RBC Hgb Hct MCV MCH MCHC RDW Std Deviation Plt Count Neut % (Auto) Lymph % (Auto) [place] % (Auto) Eos % (Auto) Baso % (Auto) Neut # (Auto) Lymph # (Auto) [place] # (Auto) Eos # (Auto) Baso # (Auto) Immature Gran # (Auto) Absolute Nucleated RBC Immature Gran % Nucleated RBC % PT INR Sodium Potassium Chloride Carbon Dioxide Anion Gap BUN Creatinine Estim Creat Clear Calc eGFR BUN/Creatinine Ratio Glucose Calculated Osmolality Lactic Acid 4.3 H* 6.2 H* Calcium Corrected Calcium Magnesium Iron TIBC Iron Saturation Unsat Iron Binding Total Bilirubin AST ALT Alkaline Phosphatase Total Protein Albumin Globulin Albumin/Globulin Ratio Misc Test Result Impressions Impression: # Acute upper GI bleed # Status post dilatation of the esophageal varices Continue to monitor CBC Continue octreotide ABG Interpretation ABG results: 08/31/24 08/31/24 00:36 16:50 ABG pH 7.45 ABG pCO2 19 L* ABG pO2 149 H ABG HCO3 14 L ABG O2 Saturation 101 H ABG Base Excess -9 L VBG pH 7.35 VBG pCO2 24 L VBG pO2 41 VBG Base Excess -12 L Assessment & Plan A&P Narrative # Acute decompensation of the chronic liver disease secondary to alcohol MELD score of 32 Patient has stopped drinking since his last admission Continue to monitor LFTs. 1 L p.o. fluid restriction in 24 hours 2 g sodium diet # Possibly SBP broad-spectrum IV antibiotics # Perigastric and esophageal varices Repeat upper endoscopy prior to discharge for further band ligation of the esophageal varices Will follow the patient Time Spent With Patient Time: Total time spent is greater than 50% in coordination of care (as documented) at patient's floor/unit and/or counseling patient:
--- NOTE | 2024-09-02 17:46 | ESPR_ITS ---
Documentation for date of: 09/02/24 Subjective Subjective Interval history: Overnight patient's lactic acid increased to 5.5, night team administered 1 L bolus fluid. Morning hemoglobin at 8.3 compared to 9.3 from yesterday. Patient had 1.4 L urine output within 24 hours, saturating well on room air. Patient started on spironolactone. Ordered CT-guided paracentesis which should be completed by tomorrow. Exam Vital Signs Temp Pulse Resp BP Pulse Ox O2 Del Method O2 Flow Rate 98.5 F 110 H 22 H 127/80 100 Room Air 3 09/02/24 12:00 09/02/24 16:00 09/02/24 12:00 09/02/24 12:00 09/02/24 12:00 09/02/24 12:00 09/01/24 17:53 Narrative Exam Physical exam GENERAL: Patient is awake, answering questions appropriately, appears stated age, jaundiced HEENT: PERRLA, EOMI, oropharynx clear. Scleral icterus present HEART: Sinus tachycardia with regular rhythm, normal S1/S2, no m/r/g LUNGS: CTAB. No crackles, rales, rhonchi or wheezing ABDOMEN: Soft, diffusely distended, mild fluid wave noted. Nontender on palpation. Past paracentesis site bandaged and draining yellow fluid. EXTREMITIES: Bilateral +2 lower extremity pitting edema up to hips, erythema noted on bilateral shins, no pain elicited with dorsiflexion or plantarflexion NEUROLOGICAL: Alert oriented x 3, no focal neurologic deficits, moves extremities x 4 Objective Labs 09/03/24 08:36 09/03/24 08:36 Labs: Laboratory Results - last 24 hr 09/01/24 09/01/24 09/02/24 19:35 23:09 05:52 WBC 10.4 RBC 3.09 L Hgb 9.1 L D 8.3 L Hct 26.7 L 25.0 L MCV 81 MCH 26.9 MCHC 33.2 RDW Std Deviation 57.1 H Plt Count 71 L Neut % (Auto) 82 H Lymph % (Auto) 9 L [place] % (Auto) 7 Eos % (Auto) 1 Baso % (Auto) 0 Neut # (Auto) 8.6 H Lymph # (Auto) 0.9 L [place] # (Auto) 0.7 Eos # (Auto) 0.1 Baso # (Auto) 0.0 Immature Gran # (Auto) 0.06 H Absolute Nucleated RBC 0.00 Immature Gran % 1 H Nucleated RBC % 0 PT 18.2 H INR 1.7 H Sodium 140 Potassium 3.2 L Chloride 110 H Carbon Dioxide 19.6 L Anion Gap 10 BUN 13 Creatinine 0.8 Estim Creat Clear Calc 125.2 eGFR > 60 BUN/Creatinine Ratio 16 Glucose 98 Calculated Osmolality 279 Lactic Acid 2.9 H 5.5 H* Calcium 8.0 L Corrected Calcium 9.3 Magnesium 1.7 Iron 34 L TIBC 191 L Iron Saturation 17 L Unsat Iron Binding 157 L Total Bilirubin 17.4 H D AST 69 H ALT 55 H Alkaline Phosphatase 98 Total Protein 5.7 Albumin 2.4 L Globulin 3.3 Albumin/Globulin Ratio 0.7 L Misc Test Result Platelets confirmed 09/02/24 09/02/24 11:45 16:26 WBC RBC Hgb Hct MCV MCH MCHC RDW Std Deviation Plt Count Neut % (Auto) Lymph % (Auto) [place] % (Auto) Eos % (Auto) Baso % (Auto) Neut # (Auto) Lymph # (Auto) [place] # (Auto) Eos # (Auto) Baso # (Auto) Immature Gran # (Auto) Absolute Nucleated RBC Immature Gran % Nucleated RBC % PT INR Sodium Potassium Chloride Carbon Dioxide Anion Gap BUN Creatinine Estim Creat Clear Calc eGFR BUN/Creatinine Ratio Glucose Calculated Osmolality Lactic Acid 4.3 H* 6.2 H* Calcium Corrected Calcium Magnesium Iron TIBC Iron Saturation Unsat Iron Binding Total Bilirubin AST ALT Alkaline Phosphatase Total Protein Albumin Globulin Albumin/Globulin Ratio Misc Test Result ABG Interpretation ABG results: 08/31/24 08/31/24 00:36 16:50 ABG pH 7.45 ABG pCO2 19 L* ABG pO2 149 H ABG HCO3 14 L ABG O2 Saturation 101 H ABG Base Excess -9 L VBG pH 7.35 VBG pCO2 24 L VBG pO2 41 VBG Base Excess -12 L Quality Measures Quality Measures VTE prophylaxis (SCDs) Assessment & Plan Assessment Current Active Medications: Generic Name Dose Route Start Last Admin Trade Name Freq PRN Reason Stop Dose Admin Acetaminophen 650 mg 08/30/24 22:27 Acetaminophen 325 Mg Tablet PO 09/29/24 22:26 Q6H PRN Fever >101.5 Acetaminophen 650 mg 08/30/24 22:31 Acetaminophen Supp 650 Mg Supp NV 09/29/24 22:30 Q6H PRN PAIN SCALE 1-3 (mild Hydrocodone Bitart/Acetaminophen 1 tab 08/30/24 22:31 Hydrocodone/Apap 5/325 Tablet PO 09/04/24 22:30 Q4HR PRN PAIN SCALE 4-10(Mod-Sev Dextrose 25 ml 08/31/24 02:19 Dextrose 50%-Water Inj 50 Ml Syringe IV 09/30/24 02:18 Q15MIN PRN BG 50-70 responsive npo pt Dextrose 50 ml 08/31/24 02:19 Dextrose 50%-Water Inj 50 Ml Syringe IV 09/30/24 02:18 Q15MIN PRN BG <50 OR BG <70 & pt unresponsive Folic Acid 1 mg 08/31/24 09:00 09/02/24 08:02 Folic Acid 1 Mg Tablet PO 09/30/24 08:59 1 mg QDAY CATHY Administration Furosemide 20 mg 08/31/24 12:15 09/02/24 08:01 Furosemide Inj 10 Mg/Ml Vial 2 Ml IVP 09/30/24 12:14 20 mg QDAY CATHY Administration Glucagon 1 mg 08/31/24 02:19 Glucagon Inj 1 Mg Vial IM Q15MIN PRN BG <70, and no IV access Albumin Human 25 gm in 100 mls @ 100 mls/hr 08/31/24 09:00 09/02/24 08:01 Albuminar-25 Ivpb IV 09/03/24 08:59 100 mls/hr BID CATHY Administration Octreotide Acetate 1,000 mcg/ 252 mls @ 12.6 mls/hr 08/31/24 19:00 09/02/24 16:57 Sodium Chloride IV 09/05/24 18:59 50 mcg/hr .Q20H CATHY 12.6 mls/hr Administration Protocol 50 MCG/HR Piperacillin Sod/Tazobactam 50 mls @ 12.5 mls/hr 09/02/24 14:00 09/02/24 13:53 Sod 3.375 gm/ Sodium Chloride IV 09/07/24 05:59 12.5 mls/hr Q8HR CATHY Administration Lactulose 30 gm 09/01/24 14:00 09/02/24 13:52 Lactulose Syrup 20 Gm/30 Ml Udc PO 10/01/24 13:59 30 gm TID CATHY Administration Protocol Midodrine 5 mg 08/31/24 12:01 Midodrine 5 Mg Tablet PO 09/30/24 13:59 TID PRN systolic bp <90 Nicotine 14 mg 08/31/24 09:00 09/02/24 08:02 Nicotine Patch 14 Mg/24 Hr Patch.Td24 TOP 09/30/24 08:59 14 mg QDAY CATHY Administration Ondansetron HCl 4 mg 08/30/24 22:31 Ondansetron Inj 2 Mg/Ml Inj 2 Ml IV 09/29/24 22:30 Q6H PRN NAUSEA OR VOMITING Protocol Pantoprazole Sodium 40 mg 08/30/24 22:35 09/02/24 08:00 Pantoprazole Inj 40 Mg Vial IVP 09/29/24 22:34 40 mg Q12HR CATHY Administration Prednisone 40 mg 08/31/24 09:00 09/02/24 08:02 Prednisone 20 Mg Tablet PO 09/28/24 08:59 40 mg QDAY CATHY Administration Sennosides 1 tab 08/30/24 22:31 Senna Tablet PO 09/29/24 22:30 QDAY PRN constipation Protocol Spironolactone 12.5 mg 09/02/24 21:00 Spironolactone 25 Mg Tablet PO 10/02/24 20:59 BID CATHY Thiamine HCl 100 mg 08/31/24 09:00 09/02/24 08:02 Thiamine 100 Mg Tablet PO 09/30/24 08:59 100 mg QDAY CATHY Administration Plan 44-year-old male with past medical history of alcohol abuse, alcoholic cirrhosis status post variceal banding from GI bleed performed on 08/07/24 showing grade 1 esophageal varices and colonoscopy performed on 08/08/2024 showing hemorrhoids presented with abdominal discomfort, possible blood in stool, significant lower extremity edema with difficult urination from couple of days. Patient is admitted for sepsis likely secondary to SBP with underlying history of alcohol induced liver cirrhosis and anasarca. #Sepsis likely secondary to SBP #Alcohol induced decompensated liver cirrhosis and ascites with anasarca #Leukocytosis #Hyperbilirubinemia #Coagulopathy #Thrombocytopenia #Hypoalbuminemia #Hyperammonemia Patient presented from PCP follow-up with increased abdominal girth, decreased urination, abdominal pain and bilateral lower extremity edema Patient has quit drinking alcohol a month ago and is currently AOx3. Labs were significant for leukocytosis white count 16, normocytic anemia hemoglobin 7.6 and elevated LFTs with elevated T. bili and direct bili. MDF score 42.3 point Poor Prognosis Child Hale score C 11 points In the ED, patient was mildly hypotensive blood pressure 99/70, heart rate 110 bpm, respiratory rate 22 and temp 99. He was saturating well on room air. Abdominal ultrasound showed minimal ascites fluid. Abdominal x-ray showed small bowel ileus CT abdominal pelvis showed small right pleural effusion, cirrhosis, splenomegaly, moderate ascites, perigastric varices, 25 mm fat containing umbilical hernia Chest x-ray showed no active disease. In the ED, patient received 2 L bolus of fluids and Zosyn x 1. Patient met 2/4 SIRS criteria with tachycardia, leukocytosis and possible source of infection with elevated lactic acid. Plan: Continue IV antibiotics Zosyn 3.375 g Q6 hourly, [08/30? Continue IV Lasix 20 mg daily Increased to lactulose 30 mg 3 times daily as needed Continue prednisone 40 mg for 28 days as MDF 42.3 points Pending diagnostic and therapeutic paracentesis for SBP with fluid analysis IV albumin 25 mg twice daily GI consulted, appreciate recommendations Replete electrolytes as necessary Bleeding precautions Avoiding hepatotoxic agents #Non-anion gap metabolic acidosis #Respiratory alkalosis #Lactic acidosis Chemistry panel was significant for sodium 132 and chloride 108 and non-anion gap metabolic acidosis with bicarb 13.8 and anion gap 10. Kidney function showed BUN 17 and creatinine 1.1 with baseline creatinine 0.8 from 08/26/2024. Lactic acid was elevated at 5.9--> 3.2 ABGs showed pH 7.45, pCO2 19, pO2 149, bicarb 14.7 on CHEM panel FiO2 21% Most likely Primary Respiratory Alkalosis, Chronic, with: Secondary Metabolic Acidosis and Additional Non-Gap Metabolic Acidosis. NAGMA could be related to RTA 2 ampoule of bicarb given by admitting team Based on bicarb, expected pCO2 is 29?2; however, pCO2 on ABG shows 19 Delta delta is -8.5 which equates to mixed non-anion gap metabolic acidosis along with respiratory alkalosis Patient's respiratory alkalosis is likely secondary to increased work of breathing Non-anion gap metabolic acidosis could be secondary to an RTA; however, more likely secondary to cirrhosis and/or GI loss from bleed 21.0?mmol/L Urine anion gap positive Plan: Treating underlying infection with IV antibiotics to reduce respiratory alkalotic state Pending urine electrolyte Will consider consulting nephrology for possible RTA #Normocytic anemia #History of GI bleed #History of gastric esophageal versus s/p banding on 08/07/24 #History of hemorrhoids per colonoscopy on 08/08/24 Labs were significant for hemoglobin 7.6 to 7.8 History of IR embolization and massive blood transfusion protocol was given during previous admission 08/31/2024: Hemoglobin did downtrend from 7.8-7.0 09/01/2024: Hemoglobin uptrending from 7.0-7.4 after 1 unit PRBC Plan: Endoscopy planned for this afternoon 09/01 Morning iron panel ordered Continue octreotide and Protonix Will transfuse 1 unit PRBC Hospital Management: Lines: PIV Diet: N.p.o. Bowel: Lactulose GI prophylaxis: Protonix 40 mg IV daily twice daily, octreotide drip DVT prophylaxis: SCDs Disposition: Pending ultrasound-guided diagnostic paracentesis for likely SBP Code: Full This patient care was discussed with my attending Dr. Kennedy Luna MD PGY-2 Disclaimer: Minor errors in lathe winder may be present since this note was dictated by speech recognition software. Attending Provider Attestation/Addendum I attest that I was physically present for the evaluation, physical examination, lab and imaging review of the patient with the residents. I discussed the case with the residents and agree with the findings and plans of care as documented above. At bedside, patient states his abdominal pain has been better. Complaint of wheezing out of peritoneal fluid from his previous paracentesis site. Dressing has been applied. Awaiting diagnostic and therapeutic paracentesis for SBP. Continues to be on IV Zosyn and Lasix. Receiving IV albumin 25 g twice daily. Continues to be on lactulose and prednisone. Noted to have elevated lactate, received IV hydration overnight, most likely related to his liver failure. Blood cultures have been negative so far. Pending paracentesis and fluid studies. Parish Benaivdes MD
[2024-09-02] MEDS: SPIRONOLACTONE 25 MG TABLET 12.5 MG PO (20:58)
[2024-09-03] VITALS (11 sets, daily range): BP systolic 117–145; BP diastolic 73–99; PULSE 82–119; RESP 17–100; TEMP 35.9–37; O2SAT 96–100; BMI 31.4
[2024-09-03] MEDS: LACTULOSE SYRUP 20 GM/30 ML UDC 30 GM PO ×3 (05:21→21:46)
[2024-09-03] MEDS: PIPER/TAZO 3.375 GM 50 ML IV (05:23)
[2024-09-03] MEDS: TAZO IV (05:25)
[2024-09-03] MEDS: PIPERACILLIN IV (05:25)
[2024-09-03 09:01] LABS: Basophils % (Auto) 0 % (0-2.5); Eosinophils % (Auto) 0 % (0-10); Hematocrit 26.5 % (41.0-53.0); Immature Granulocytes % (Auto) 1 % (0-0); Immature Granulocytes Auto 0.07 Thou/mm3 (0.00-0.00); Lymphocytes # (Auto) 0.8 Thou/mm3 (1.0-4.8); Lymphocytes % (Auto) 7 % (10-50); Mean Corpuscular HGB Conc 32.5 g/dl (31.0-37.0); Mean Corpuscular Hemoglobin 26.8 pg (25.0-35.0); Mean Corpuscular Volume 83 fL (80-100); Monocytes # (Auto) 0.9 Thou/mm3 (0.0-0.8); Monocytes % (Auto) 8 % (0-12); Neutrophils # (Auto) 10.2 Thou/mm3 (1.8-7.7); Neutrophils % (Auto) 85 % (37-80); Nucleated Red Blood Cell % 0 /100 WBC (0); Platelet Count 62 Thou/mm3 (140-440); RDW Standard Deviation 59.8 fL (35.1-43.9); Red Blood Count 3.21 Miln/mm3 (4.50-5.90); White Blood Count 12.1 Thou/mm3 (3.8-10.6)
[2024-09-03 09:04] LABS: Hemoglobin 8.6 g/dL (13.5-16.0)
[2024-09-03] MEDS: NICOTINE PATCH 14 MG/24 HR PATCH.TD24 TOP (09:15)
[2024-09-03] MEDS: PANTOPRAZOLE INJ 40 MG VIAL IVP ×2 (09:15→20:45)
[2024-09-03] MEDS: FUROSEMIDE INJ 10 MG/ML VIAL 2 ML 20 MG IVP (09:15)
[2024-09-03] MEDS: SPIRONOLACTONE 25 MG TABLET 12.5 MG PO ×2 (09:16→20:44)
[2024-09-03] MEDS: FOLIC ACID 1 MG TABLET PO (09:17)
[2024-09-03] MEDS: THIAMINE 100 MG TABLET PO (09:18)
[2024-09-03] MEDS: predniSONE 20 MG TABLET 40 MG PO (09:18)
[2024-09-03 09:31] LABS: Alanine Aminotransferase 56 U/L (10-49); Albumin, Serum 2.8 gm/dL (3.5-5.0); Albumin/Globulin Ratio 0.8 (1.2-2.2); Alkaline Phosphatase 93 U/L (46-116); Anion Gap 11 (7-16); Aspartate Amino Transferase 56 U/L (0-34); BUN/Creatinine Ratio 20 Ratio (12-20); Bilirubin,Total 16.4 mg/dL (0.3-1.2); Blood Urea Nitrogen 12 mg/dL (9-23); Calcium 8.6 mg/dL (8.3-10.6); Calcium (Corrected) 9.6 mg/dL (8.5-10.1); Carbon Dioxide 17.7 mMol/L (20.0-31.0); Chloride 115 mMol/L (98-107); Creatinine (Component) 0.6 mg/dL (0.6-1.3); Estimated Creatinine Clearance 164.2 mL/min (>60); Globulin 3.5 gm/dL (2.3-3.5); Glucose 136 mg/dL (74-106); Magnesium 1.5 mg/dL (1.6-2.6); Osmolality,Calculated 288 (275-295); Potassium 3.4 mMol/L (3.4-5.1); Sodium 144 mMol/L (136-145); Total Protein 6.3 gm/dL (5.7-8.2); eGFR > 60 See Note
[2024-09-03 09:41] LABS: Phosphorous 0.9 mg/dL (2.4-5.1)
[2024-09-03] MEDS: POTASSIUM PHOS 22.5 MMOL in SODIUM CHLORIDE 0.9% 500 ML 500 ML 82.778 MMOL IV (11:01)
[2024-09-03 11:17] LABS: Slide Review Platelets confirmed
--- NOTE | 2024-09-03 12:48 | ESPR_ITS ---
<Statement entered by Nemesio Luna MD - 09/04/24 13:46> I discussed with and supervised the technical support internship physician involved in the care of this patient. Patient assessment and plan was discussed with entire medicine team, including my attending. I agree with the assessment and plan as documented by technical support internship doctor. Patient care was discussed with my attending physician Dr. Kennedy Luna, PGY-2 Documentation for date of: 09/03/24 Subjective Subjective Interval history: 09/03/2024: No acute overnight events to report. Patient seen and examined with no new concerning symptoms. Patient still as oozing from R-abdomen previous paracentesis site. Will speak to surgery regarding need for any intervention at this time. Patient is pending CT-guided paracentesis for ascited secondary to ESLD. Will continue to treat with IV abx, manage intravascular fluid levels and continue IV octreotide while monitoring for any signs of acute bleeding. Exam Vital Signs Temp Pulse Resp BP Pulse Ox O2 Del Method O2 Flow Rate 97.7 F 93 19 122/85 H 100 Room Air 3 09/03/24 12:00 09/03/24 12:00 09/03/24 12:00 09/03/24 12:09/03/24 12:09/03/24 12:00 09/01/24 17:53 Narrative Exam Physical exam GENERAL: Patient is awake, answering questions appropriately, appears stated age HEENT: PERRLA, EOMI, oropharynx clear. Scleral icterus present HEART: Sinus tachycardia with regular rhythm, normal S1/S2, no m/r/g LUNGS: CTAB. No crackles, rales, rhonchi or wheezing ABDOMEN: Soft, diffusely distended, mild fluid wave noted. Nontender on palpation. Past paracentesis site bandaged and draining yellow fluid. EXTREMITIES: Bilateral +2 lower extremity pitting edema up to hips, erythema noted on bilateral shins, no pain elicited with dorsiflexion or plantarflexion NEUROLOGICAL: Alert oriented x 3, no focal neurologic deficits, moves extremities x 4 Objective Labs 09/03/24 08:36 09/03/24 08:36 Labs: Laboratory Results - last 24 hr 09/02/24 09/03/24 16:26 08:36 WBC 12.1 H RBC 3.21 L Hgb 8.6 L Hct 26.5 L MCV 83 MCH 26.8 MCHC 32.5 RDW Std Deviation 59.8 H Plt Count 62 L Neut % (Auto) 85 H Lymph % (Auto) 7 L [place] % (Auto) 8 Eos % (Auto) 0 Baso % (Auto) 0 Neut # (Auto) 10.2 H Lymph # (Auto) 0.8 L [place] # (Auto) 0.9 H Eos # (Auto) 0.0 Baso # (Auto) 0.0 Immature Gran # (Auto) 0.07 H Absolute Nucleated RBC 0.00 Immature Gran % 1 H Nucleated RBC % 0 Sodium 144 Potassium 3.4 Chloride 115 H Carbon Dioxide 17.7 L Anion Gap 11 BUN 12 Creatinine 0.6 Estim Creat Clear Calc 164.2 eGFR > 60 BUN/Creatinine Ratio 20 Glucose 136 H Calculated Osmolality 288 Lactic Acid 6.2 H* Calcium 8.6 Corrected Calcium 9.6 Phosphorus 0.9 L* Magnesium 1.5 L Total Bilirubin 16.4 H D AST 56 H ALT 56 H Alkaline Phosphatase 93 Total Protein 6.3 Albumin 2.8 L Globulin 3.5 Albumin/Globulin Ratio 0.8 L Misc Test Result Platelets confirmed ABG Interpretation ABG results: 08/31/24 08/31/24 00:36 16:50 ABG pH 7.45 ABG pCO2 19 L* ABG pO2 149 H ABG HCO3 14 L ABG O2 Saturation 101 H ABG Base Excess -9 L VBG pH 7.35 VBG pCO2 24 L VBG pO2 41 VBG Base Excess -12 L Quality Measures Quality Measures VTE prophylaxis (SCDs) Assessment & Plan Assessment Current Active Medications: Generic Name Dose Route Start Last Admin Trade Name Cathleen PRN Reason Stop Dose Admin Acetaminophen 650 mg 08/30/24 22:27 Acetaminophen 325 Mg Tablet PO 09/29/24 22:26 Q6H PRN Fever >101.5 Acetaminophen 650 mg 08/30/24 22:31 Acetaminophen Supp 650 Mg Supp IN 09/29/24 22:30 Q6H PRN PAIN SCALE 1-3 (mild Hydrocodone Bitart/Acetaminophen 1 tab 08/30/24 22:31 Hydrocodone/Apap 5/325 Tablet PO 09/04/24 22:30 Q4HR PRN PAIN SCALE 4-10(Mod-Sev Dextrose 25 ml 08/31/24 02:19 Dextrose 50%-Water Inj 50 Ml Syringe IV 09/30/24 02:18 Q15MIN PRN BG 50-70 responsive npo pt Dextrose 50 ml 08/31/24 02:19 Dextrose 50%-Water Inj 50 Ml Syringe IV 09/30/24 02:18 Q15MIN PRN BG <50 OR BG <70 & pt unresponsive Folic Acid 1 mg 08/31/24 09:00 09/03/24 09:17 Folic Acid 1 Mg Tablet PO 09/30/24 08:59 1 mg QDAY CATHY Administration Furosemide 20 mg 08/31/24 12:15 09/03/24 09:15 Furosemide Inj 10 Mg/Ml Vial 2 Ml IVP 09/30/24 12:14 20 mg QDAY CATHY Administration Glucagon 1 mg 08/31/24 02:19 Glucagon Inj 1 Mg Vial IM Q15MIN PRN BG <70, and no IV access Octreotide Acetate 1,000 mcg/ 252 mls @ 12.6 mls/hr 08/31/24 19:00 09/02/24 16:57 Sodium Chloride IV 09/05/24 18:59 50 mcg/hr .Q20H CATHY 12.6 mls/hr Administration Protocol 50 MCG/HR Piperacillin Sod/Tazobactam 50 mls @ 12.5 mls/hr 09/03/24 14:00 Sod 3.375 gm/ Sodium Chloride IV 09/10/24 05:59 Q8HR CATHY Potassium Phosphate 22.5 mmol/ 507.5 mls @ 82.778 mls/hr 09/03/24 09:46 09/03/24 11:01 Sodium Chloride IV 09/03/24 15:53 82.778 mls/hr X1 ONE Administration Lactulose 30 gm 09/01/24 14:00 09/03/24 05:21 Lactulose Syrup 20 Gm/30 Ml Udc PO 10/01/24 13:59 30 gm TID CATHY Administration Protocol Midodrine 5 mg 08/31/24 12:01 Midodrine 5 Mg Tablet PO 09/30/24 13:59 TID PRN systolic bp <90 Nicotine 14 mg 08/31/24 09:00 09/03/24 09:15 Nicotine Patch 14 Mg/24 Hr Patch.Td24 TOP 09/30/24 08:59 14 mg QDAY CATHY Administration Ondansetron HCl 4 mg 08/30/24 22:31 Ondansetron Inj 2 Mg/Ml Inj 2 Ml IV 09/29/24 22:30 Q6H PRN NAUSEA OR VOMITING Protocol Pantoprazole Sodium 40 mg 08/30/24 22:35 09/03/24 09:15 Pantoprazole Inj 40 Mg Vial IVP 09/29/24 22:34 40 mg Q12HR CATHY Administration Prednisone 40 mg 08/31/24 09:00 09/03/24 09:18 Prednisone 20 Mg Tablet PO 09/28/24 08:59 40 mg QDAY CATHY Administration Sennosides 1 tab 08/30/24 22:31 Senna Tablet PO 09/29/24 22:30 QDAY PRN constipation Protocol Spironolactone 12.5 mg 09/02/24 21:00 09/03/24 09:16 Spironolactone 25 Mg Tablet PO 10/02/24 20:59 12.5 mg BID CATHY Administration Thiamine HCl 100 mg 08/31/24 09:00 09/03/24 09:18 Thiamine 100 Mg Tablet PO 09/30/24 08:59 100 mg QDAY CATHY Administration Plan 44-year-old male with past medical history of alcohol abuse, alcoholic cirrhosis status post variceal banding from GI bleed performed on 08/07/24 showing grade 1 esophageal varices and colonoscopy performed on 08/08/2024 showing hemorrhoids presented with abdominal discomfort, possible blood in stool, significant lower extremity edema with difficult urination from couple of days. Patient is admitted for sepsis likely secondary to SBP with underlying history of alcohol induced liver cirrhosis and anasarca. #Sepsis likely secondary to SBP #Alcohol induced decompensated liver cirrhosis and ascites with anasarca #Leukocytosis #Hyperbilirubinemia #Coagulopathy #Thrombocytopenia #Hypoalbuminemia #Hyperammonemia Patient presented from PCP follow-up with increased abdominal girth, decreased urination, abdominal pain and bilateral lower extremity edema Patient has quit drinking alcohol a month ago and is currently AOx3. Labs were significant for leukocytosis white count 16, normocytic anemia hemoglobin 7.6 and elevated LFTs with elevated T. bili and direct bili. MDF score 42.3 point Poor Prognosis Child Hale score C 11 points In the ED, patient was mildly hypotensive blood pressure 99/70, heart rate 110 bpm, respiratory rate 22 and temp 99. He was saturating well on room air. Abdominal ultrasound showed minimal ascites fluid. Abdominal x-ray showed small bowel ileus CT abdominal pelvis showed small right pleural effusion, cirrhosis, splenomegaly, moderate ascites, perigastric varices, 25 mm fat containing umbilical hernia Chest x-ray showed no active disease. In the ED, patient received 2 L bolus of fluids and Zosyn x 1. Patient met 2/4 SIRS criteria with tachycardia, leukocytosis and possible source of infection with elevated lactic acid. Plan: Continue IV antibiotics Zosyn 3.375 g Q6 hourly, [08/30? Continue IV Lasix 20 mg daily Continue lactulose 30 mg 3 times daily as needed Continue prednisone 40 mg for 28 days as MDF 42.3 points Continue Spironolactone 12.5mg bid Pending CT guided paracentesis IV albumin 25 mg twice daily GI consulted, appreciate recommendations Replete electrolytes as necessary Bleeding precautions Avoiding hepatotoxic agents #Non-anion gap metabolic acidosis #Respiratory alkalosis #Lactic acidosis Chemistry panel was significant for sodium 132 and chloride 108 and non-anion gap metabolic acidosis with bicarb 13.8 and anion gap 10. Kidney function showed BUN 17 and creatinine 1.1 with baseline creatinine 0.8 from 08/26/2024. Lactic acid was elevated at 5.9--> 3.2 ABGs showed pH 7.45, pCO2 19, pO2 149, bicarb 14.7 on CHEM panel FiO2 21% Most likely Primary Respiratory Alkalosis, Chronic, with: Secondary Metabolic Acidosis and Additional Non-Gap Metabolic Acidosis. NAGMA could be related to RTA 2 ampoule of bicarb given by admitting team Based on bicarb, expected pCO2 is 29?2; however, pCO2 on ABG shows 19 Delta delta is -8.5 which equates to mixed non-anion gap metabolic acidosis along with respiratory alkalosis Patient's respiratory alkalosis is likely secondary to increased work of breathing Non-anion gap metabolic acidosis could be secondary to an RTA; however, more likely secondary to cirrhosis and/or GI loss from bleed 21.0?mmol/L Urine anion gap positive Plan: Treating underlying infection with IV antibiotics to reduce respiratory alkalotic state Will consider consulting nephrology for possible RTA #Anemia of Chronic Deficiency #History of GI bleed #History of gastric esophageal versus s/p banding on 08/07/24 #History of hemorrhoids per colonoscopy on 08/08/24 Labs were significant for hemoglobin 7.6 to 7.8 History of IR embolization and massive blood transfusion protocol was given during previous admission 08/31/2024: Hemoglobin did downtrend from 7.8-7.0 09/01/2024: Hemoglobin uptrending from 7.0-7.4 after 1 unit PRBC Transfused a total of 2u pRBC Iron panel: iron 34, TIBC 191, Iron saturation 17% and ferritin 37 (low normal) EGD shows Grade 2 esophageal varices, completely eradicated and banded. Gastritis with characteristic erythema, normal second portion of duodenum. Plan: Continue octreotide day 4/5 PUD diet Consider iron supplementation for underlying iron deficiency Hospital Management: Lines: PIV Diet: N.p.o. Bowel: Lactulose GI prophylaxis: Protonix 40 mg IV daily twice daily, octreotide drip DVT prophylaxis: SCDs Disposition: Pending ultrasound-guided diagnostic paracentesis for likely SBP Code: Full Patient seen and examined with attending Dr. Benavides and senior resident Dr. Cheryl Schwarz, PGY-1 Attending Provider Attestation/Addendum I attest that I was physically present for the evaluation, physical examination, lab and imaging review of the patient with the residents. I discussed the case with the residents and agree with the findings and plans of care as documented above. At bedside today, patient continues to complain of leaking of ascitic fluid. Patient's RN stated that he had more than 500 cc output from the presentation side. We will discuss with general surgery regarding the leaking site, were unable to reach them today. Patient is still waiting for paracentesis and fluid evaluation. Continues to be on broad-spectrum antibiotics, blood cultures have been negative so far. Lactic acid continues to be high, likely related to his liver failure. Parish Benavides MD
[2024-09-03] MEDS: PIPER/TAZO INJ 3.375 GM in SODIUM CHLORIDE 0.9% (P) 50 ML IV ×2 (13:59→21:47)
[2024-09-03] MEDS: OCTREOTIDE ACET IV (17:09)
[2024-09-03] MEDS: SODIUM CHLORIDE 0.9% IV (17:09)
--- NOTE | 2024-09-03 21:43 | ESPR_ITS ---
Documentation for date of: 09/03/24 Subjective Subjective Interval history: Patient critically sick with lactic acidosis. Mostly due to SBP and underlying sepsis, hemoglobin hematocrit 8.6 and 26.5 with a platelet count of 62,000 and pro time INR 1.7 Lactic acid is 6.2 total bilirubin 16.4 AST ALT 56 and 56 Exam Vital Signs Temp Pulse Resp BP Pulse Ox O2 Del Method O2 Flow Rate 97.9 F 114 H 18 119/84 100 Room Air 3 09/03/24 20:00 09/03/24 21:37 09/03/24 21:37 09/03/24 20:44 09/03/24 20:00 09/03/24 20:00 09/01/24 17:53 Constitutional Comments: Chronically sick appearing Routine Respiratory Exam Comments: Normal to auscultation Objective Labs 09/03/24 08:36 09/03/24 08:36 Labs: Laboratory Results - last 24 hr 09/03/24 08:36 WBC 12.1 H RBC 3.21 L Hgb 8.6 L Hct 26.5 L MCV 83 MCH 26.8 MCHC 32.5 RDW Std Deviation 59.8 H Plt Count 62 L Neut % (Auto) 85 H Lymph % (Auto) 7 L [place] % (Auto) 8 Eos % (Auto) 0 Baso % (Auto) 0 Neut # (Auto) 10.2 H Lymph # (Auto) 0.8 L [place] # (Auto) 0.9 H Eos # (Auto) 0.0 Baso # (Auto) 0.0 Immature Gran # (Auto) 0.07 H Absolute Nucleated RBC 0.00 Immature Gran % 1 H Nucleated RBC % 0 Sodium 144 Potassium 3.4 Chloride 115 H Carbon Dioxide 17.7 L Anion Gap 11 BUN 12 Creatinine 0.6 Estim Creat Clear Calc 164.2 eGFR > 60 BUN/Creatinine Ratio 20 Glucose 136 H Calculated Osmolality 288 Calcium 8.6 Corrected Calcium 9.6 Phosphorus 0.9 L* Magnesium 1.5 L Total Bilirubin 16.4 H D AST 56 H ALT 56 H Alkaline Phosphatase 93 Total Protein 6.3 Albumin 2.8 L Globulin 3.5 Albumin/Globulin Ratio 0.8 L Misc Test Result Platelets confirmed Impressions Impression: # End-stage liver disease with thrombocytopenia coagulopathy and advanced portal hypertension requiring band location of the esophageal varices # Lactic acidosis due to underlying SBP will speak with case management tomorrow To see what hospital is accompanied by his insurance for him to be evaluated for possibility of liver transplant otherwise his prognosis is very poo as he has stopped drinking as he has stopped drinkingr ABG Interpretation ABG results: 08/31/24 08/31/24 00:36 16:50 ABG pH 7.45 ABG pCO2 19 L* ABG pO2 149 H ABG HCO3 14 L ABG O2 Saturation 101 H ABG Base Excess -9 L VBG pH 7.35 VBG pCO2 24 L VBG pO2 41 VBG Base Excess -12 L Assessment & Plan A&P Narrative # Acute decompensation of the chronic liver disease secondary to alcohol MELD score of 32 Patient has stopped drinking since his last admission Continue to monitor LFTs. 1 L p.o. fluid restriction in 24 hours 2 g sodium diet # Possibly SBP broad-spectrum IV antibiotics # Perigastric and esophageal varices Repeat upper endoscopy prior to discharge for further band ligation of the esophageal varices Will follow the patient Time Spent With Patient Time: Total time spent is greater than 50% in coordination of care (as documented) at patient's floor/unit and/or counseling patient:
[2024-09-04] VITALS (10 sets, daily range): BP systolic 111–127; BP diastolic 76–92; PULSE 90–116; RESP 15–21; TEMP 36.1–37.2; O2SAT 99–100
[2024-09-04] MEDS: LACTULOSE SYRUP 20 GM/30 ML UDC 30 GM PO ×3 (05:19→21:27)
[2024-09-04] MEDS: PIPER/TAZO INJ 3.375 GM in SODIUM CHLORIDE 0.9% (P) 50 ML IV ×3 (05:20→21:27)
[2024-09-04 06:28] LABS: Phosphorous 0.9 mg/dL (2.4-5.1)
[2024-09-04] MEDS: NAPH,KPH MBDB 1 PACKET (1.5 GM) PO (07:48)
[2024-09-04 09:13] LABS: Basophils % (Auto) 0 % (0-2.5); Eosinophils % (Auto) 0 % (0-10); Hematocrit 25.2 % (41.0-53.0); Immature Granulocytes % (Auto) 1 % (0-0); Immature Granulocytes Auto 0.06 Thou/mm3 (0.00-0.00); Lymphocytes # (Auto) 0.6 Thou/mm3 (1.0-4.8); Lymphocytes % (Auto) 5 % (10-50); Mean Corpuscular HGB Conc 31.7 g/dl (31.0-37.0); Mean Corpuscular Volume 85 fL (80-100); Monocytes # (Auto) 0.8 Thou/mm3 (0.0-0.8); Monocytes % (Auto) 7 % (0-12); Neutrophils # (Auto) 10.1 Thou/mm3 (1.8-7.7); Neutrophils % (Auto) 88 % (37-80); Nucleated Red Blood Cell % 0 /100 WBC (0); Platelet Count 52 Thou/mm3 (140-440); RDW Standard Deviation 63.2 fL (35.1-43.9); Red Blood Count 2.96 Miln/mm3 (4.50-5.90); White Blood Count 11.4 Thou/mm3 (3.8-10.6)
[2024-09-04] MEDS: PANTOPRAZOLE INJ 40 MG VIAL IVP ×2 (09:17→20:24)
[2024-09-04] MEDS: FUROSEMIDE INJ 10 MG/ML VIAL 2 ML 20 MG IVP ×2 (09:17→14:42)
[2024-09-04] MEDS: Magnesium Sulfate 4 GM Ivpb 4 GM/50 ML BAG IV (09:18)
[2024-09-04] MEDS: NICOTINE PATCH 14 MG/24 HR PATCH.TD24 TOP (09:18)
[2024-09-04] MEDS: predniSONE 20 MG TABLET 40 MG PO (09:18)
[2024-09-04] MEDS: SPIRONOLACTONE 25 MG TABLET 12.5 MG PO (09:19)
[2024-09-04] MEDS: FOLIC ACID 1 MG TABLET PO (09:19)
[2024-09-04] MEDS: THIAMINE 100 MG TABLET PO (09:19)
[2024-09-04 09:23] LABS: Alanine Aminotransferase 55 U/L (10-49); Albumin, Serum 2.5 gm/dL (3.5-5.0); Albumin/Globulin Ratio 0.8 (1.2-2.2); Alkaline Phosphatase 78 U/L (46-116); Anion Gap 12 (7-16); Aspartate Amino Transferase 49 U/L (0-34); BUN/Creatinine Ratio 19 Ratio (12-20); Bilirubin,Total 14.3 mg/dL (0.3-1.2); Blood Urea Nitrogen 13 mg/dL (9-23); Calcium 7.9 mg/dL (8.3-10.6); Calcium (Corrected) 9.1 mg/dL (8.5-10.1); Carbon Dioxide 16.1 mMol/L (20.0-31.0); Chloride 112 mMol/L (98-107); Creatinine (Component) 0.7 mg/dL (0.6-1.3); Estimated Creatinine Clearance 139.9 mL/min (>60); Globulin 3.2 gm/dL (2.3-3.5); Glucose 158 mg/dL (74-106); Osmolality,Calculated 282 (275-295); Sodium 140 mMol/L (136-145); Total Protein 5.7 gm/dL (5.7-8.2); eGFR > 60 See Note
--- NOTE | 2024-09-04 10:01 | ESPR_ITS ---
Documentation for date of: 09/04/24 Subjective Subjective Interval history: Hemoglobin hematocrit 8.0 and 25.2 Platelet count 52,000 BUN/creatinine 12 and 0.8 Total bilirubin coming down to 14.3 with AST ALT 49 and 55 Exam Vital Signs Temp Pulse Resp BP Pulse Ox O2 Del Method O2 Flow Rate 98.5 F 90 18 114/76 99 Room Air 3 09/04/24 08:00 09/04/24 09:19 09/04/24 08:00 09/04/24 09:19 09/04/24 08:00 09/04/24 08:00 09/01/24 17:53 Objective Labs 09/04/24 05:16 09/04/24 15:30 Labs: Laboratory Results - last 24 hr 09/03/24 09/04/24 08:36 05:16 WBC 11.4 H RBC 2.96 L Hgb 8.0 L Hct 25.2 L MCV 85 MCH 27.0 MCHC 31.7 RDW Std Deviation 63.2 H Plt Count 52 L Neut % (Auto) 88 H Lymph % (Auto) 5 L [place] % (Auto) 7 Eos % (Auto) 0 Baso % (Auto) 0 Neut # (Auto) 10.1 H Lymph # (Auto) 0.6 L [place] # (Auto) 0.8 Eos # (Auto) 0.0 Baso # (Auto) 0.0 Immature Gran # (Auto) 0.06 H Absolute Nucleated RBC 0.00 Immature Gran % 1 H Nucleated RBC % 0 Sodium 140 Potassium 4.0 D Chloride 112 H Carbon Dioxide 16.1 L Anion Gap 12 BUN 13 Creatinine 0.7 Estim Creat Clear Calc 139.9 eGFR > 60 BUN/Creatinine Ratio 19 Glucose 158 H Calculated Osmolality 282 Calcium 7.9 L Corrected Calcium 9.1 Phosphorus 0.9 L* Total Bilirubin 14.3 H D AST 49 H ALT 55 H Alkaline Phosphatase 78 Total Protein 5.7 Albumin 2.5 L Globulin 3.2 Albumin/Globulin Ratio 0.8 L Misc Test Result Platelets confirmed Impressions Impression: # Esophageal variceal bleeding status post band ligation of the esophageal varices # End-stage liver disease patient is abstinent from alcohol Will discuss the case with the internal medicine team patient should be evaluated and the process should be started for a possible liver transplant in the future either an inpatient transfer or an outpatient referral to a transplant center ABG Interpretation ABG results: 08/31/24 08/31/24 00:36 16:50 ABG pH 7.45 ABG pCO2 19 L* ABG pO2 149 H ABG HCO3 14 L ABG O2 Saturation 101 H ABG Base Excess -9 L VBG pH 7.35 VBG pCO2 24 L VBG pO2 41 VBG Base Excess -12 L Assessment & Plan A&P Narrative # Acute decompensation of the chronic liver disease secondary to alcohol MELD score of 32 Patient has stopped drinking since his last admission Continue to monitor LFTs. 1 L p.o. fluid restriction in 24 hours 2 g sodium diet # Possibly SBP broad-spectrum IV antibiotics # Perigastric and esophageal varices Repeat upper endoscopy prior to discharge for further band ligation of the esophageal varices Will follow the patient Time Spent With Patient Time: Total time spent is greater than 50% in coordination of care (as documented) at patient's floor/unit and/or counseling patient:
--- NOTE | 2024-09-04 11:37 | ESPR_ITS ---
<Statement entered by Nemesio Luna MD - 09/04/24 16:36> I discussed with and supervised the graphic design intern physician involved in the care of this patient. Patient assessment and plan was discussed with entire medicine team, including my attending. I agree with the assessment and plan as documented by graphic design intern doctor. Patient care was discussed with my attending physician Dr. Martínez Luna, PGY-2 Documentation for date of: 09/04/24 Subjective Subjective Interval history: 09/04/2024: No acute overnight events to report. Patient seen and examined in hospital bed reports improvement in abdominal pain and distention has largely dissipated. Patient still remains edematous with +3 pitting edema noted bilaterally in up to the hips. Will increase patient's diuretics with IV Lasix 40 mg and spironolactone 25 mg p.o. twice daily. Patient had a scheduled ultrasound-guided paracentesis; however, due to minimal ascites that was canceled. Continue to treat the patient with IV octreotide and will monitor for response to diuretics. Exam Vital Signs Temp Pulse Resp BP Pulse Ox O2 Del Method O2 Flow Rate 98.5 F 90 18 114/76 99 Room Air 3 09/04/24 08:00 09/04/24 09:19 09/04/24 08:00 09/04/24 09:19 09/04/24 08:00 09/04/24 08:00 09/01/24 17:53 Narrative Exam Physical exam GENERAL: Patient is awake, answering questions appropriately, appears stated age HEENT: PERRLA, EOMI, oropharynx clear. Scleral icterus present HEART: Sinus tachycardia with regular rhythm, normal S1/S2, no m/r/g LUNGS: CTAB. No crackles, rales, rhonchi or wheezing ABDOMEN: Soft, diffusely distended, mild fluid wave noted. Nontender on palpation. Past paracentesis site bandaged and draining yellow fluid. EXTREMITIES: Bilateral +2 lower extremity pitting edema up to hips, erythema noted on bilateral shins, no pain elicited with dorsiflexion or plantarflexion NEUROLOGICAL: Alert oriented x 3, no focal neurologic deficits, moves extremities x 4 Objective Labs 09/05/24 06:45 09/05/24 05:05 Labs: Laboratory Results - last 24 hr 09/04/24 05:16 WBC 11.4 H RBC 2.96 L Hgb 8.0 L Hct 25.2 L MCV 85 MCH 27.0 MCHC 31.7 RDW Std Deviation 63.2 H Plt Count 52 L Neut % (Auto) 88 H Lymph % (Auto) 5 L [place] % (Auto) 7 Eos % (Auto) 0 Baso % (Auto) 0 Neut # (Auto) 10.1 H Lymph # (Auto) 0.6 L [place] # (Auto) 0.8 Eos # (Auto) 0.0 Baso # (Auto) 0.0 Immature Gran # (Auto) 0.06 H Absolute Nucleated RBC 0.00 Immature Gran % 1 H Nucleated RBC % 0 Sodium 140 Potassium 4.0 D Chloride 112 H Carbon Dioxide 16.1 L Anion Gap 12 BUN 13 Creatinine 0.7 Estim Creat Clear Calc 139.9 eGFR > 60 BUN/Creatinine Ratio 19 Glucose 158 H Calculated Osmolality 282 Calcium 7.9 L Corrected Calcium 9.1 Phosphorus 0.9 L* Total Bilirubin 14.3 H D AST 49 H ALT 55 H Alkaline Phosphatase 78 Total Protein 5.7 Albumin 2.5 L Globulin 3.2 Albumin/Globulin Ratio 0.8 L ABG Interpretation ABG results: 08/31/24 08/31/24 00:36 16:50 ABG pH 7.45 ABG pCO2 19 L* ABG pO2 149 H ABG HCO3 14 L ABG O2 Saturation 101 H ABG Base Excess -9 L VBG pH 7.35 VBG pCO2 24 L VBG pO2 41 VBG Base Excess -12 L Quality Measures Quality Measures VTE prophylaxis (SCDs) Assessment & Plan Assessment Current Active Medications: Generic Name Dose Route Start Last Admin Trade Name Leightonq PRN Reason Stop Dose Admin Acetaminophen 650 mg 08/30/24 22:27 Acetaminophen 325 Mg Tablet PO 09/29/24 22:26 Q6H PRN Fever >101.5 Acetaminophen 650 mg 08/30/24 22:31 Acetaminophen Supp 650 Mg Supp [place] 09/29/24 22:30 Q6H PRN PAIN SCALE 1-3 (mild Hydrocodone Bitart/Acetaminophen 1 tab 08/30/24 22:31 Hydrocodone/Apap 5/325 Tablet PO 09/04/24 22:30 Q4HR PRN PAIN SCALE 4-10(Mod-Sev Dextrose 25 ml 08/31/24 02:19 Dextrose 50%-Water Inj 50 Ml Syringe IV 09/30/24 02:18 Q15MIN PRN BG 50-70 responsive npo pt Dextrose 50 ml 08/31/24 02:19 Dextrose 50%-Water Inj 50 Ml Syringe IV 09/30/24 02:18 Q15MIN PRN BG <50 OR BG <70 & pt unresponsive Folic Acid 1 mg 08/31/24 09:00 09/04/24 09:19 Folic Acid 1 Mg Tablet PO 09/30/24 08:59 1 mg QDAY CATHY Administration Furosemide 40 mg 09/05/24 09:00 Furosemide Inj 10 Mg/Ml Vial 2 Ml IVP 10/05/24 08:59 QDAY CATHY Glucagon 1 mg 08/31/24 02:19 Glucagon Inj 1 Mg Vial IM Q15MIN PRN BG <70, and no IV access Octreotide Acetate 1,000 mcg/ 252 mls @ 12.6 mls/hr 08/31/24 19:00 09/03/24 17:09 Sodium Chloride IV 09/05/24 18:59 50 mcg/hr .Q20H CATHY 12.6 mls/hr Administration Protocol 50 MCG/HR Piperacillin Sod/Tazobactam 50 mls @ 12.5 mls/hr 09/03/24 14:00 09/04/24 05:20 Sod 3.375 gm/ Sodium Chloride IV 09/10/24 05:59 12.5 mls/hr Q8HR CATHY Administration Magnesium Sulfate 4 gm in 50 mls @ 12.5 mls/hr 09/04/24 08:02 09/04/24 09:18 Magnesium Sulfate Ivpb IV 09/04/24 12:01 12.5 mls/hr X1 ONE Administration Sodium Phosphate 22.5 mmol/ 507.5 mls @ 82.778 mls/hr 09/04/24 15:00 Sodium Chloride IV 09/04/24 21:07 X1 ONE Lactulose 30 gm 09/01/24 14:00 09/04/24 05:19 Lactulose Syrup 20 Gm/30 Ml Udc PO 10/01/24 13:59 30 gm TID CATHY Administration Protocol Midodrine 5 mg 08/31/24 12:01 Midodrine 5 Mg Tablet PO 09/30/24 13:59 TID PRN systolic bp <90 Nicotine 14 mg 08/31/24 09:00 09/04/24 09:18 Nicotine Patch 14 Mg/24 Hr Patch.Td24 TOP 09/30/24 08:59 14 mg QDAY CATHY Administration Ondansetron HCl 4 mg 08/30/24 22:31 Ondansetron Inj 2 Mg/Ml Inj 2 Ml IV 09/29/24 22:30 Q6H PRN NAUSEA OR VOMITING Protocol Pantoprazole Sodium 40 mg 08/30/24 22:35 09/04/24 09:17 Pantoprazole Inj 40 Mg Vial IVP 09/29/24 22:34 40 mg Q12HR CATHY Administration Prednisone 40 mg 08/31/24 09:00 09/04/24 09:18 Prednisone 20 Mg Tablet PO 09/28/24 08:59 40 mg QDAY CATHY Administration Sennosides 1 tab 08/30/24 22:31 Senna Tablet PO 09/29/24 22:30 QDAY PRN constipation Protocol Sodium Bicarbonate 325 mg 09/04/24 21:00 Sodium Bicarbonate 650 Mg Tablet PO 10/04/24 20:59 BID CATHY Spironolactone 25 mg 09/04/24 21:00 Spironolactone 25 Mg Tablet PO 10/04/24 20:59 BID CATHY Thiamine HCl 100 mg 08/31/24 09:00 09/04/24 09:19 Thiamine 100 Mg Tablet PO 09/30/24 08:59 100 mg QDAY CATHY Administration Plan 44-year-old male with past medical history of alcohol abuse, alcoholic cirrhosis status post variceal banding from GI bleed performed on 08/07/24 showing grade 1 esophageal varices and colonoscopy performed on 08/08/2024 showing hemorrhoids presented with abdominal discomfort, possible blood in stool, significant lower extremity edema with difficult urination from couple of days. Patient is admitted for sepsis likely secondary to SBP with underlying history of alcohol induced liver cirrhosis and anasarca. #Sepsis likely secondary to SBP #Alcohol induced decompensated liver cirrhosis and ascites with anasarca #Leukocytosis #Hyperbilirubinemia #Coagulopathy #Thrombocytopenia #Hypoalbuminemia #Hyperammonemia Patient presented from PCP follow-up with increased abdominal girth, decreased urination, abdominal pain and bilateral lower extremity edema Patient has quit drinking alcohol a month ago and is currently AOx3. Labs were significant for leukocytosis white count 16, normocytic anemia hemoglobin 7.6 and elevated LFTs with elevated T. bili and direct bili. MDF score 42.3 point Poor Prognosis Child Hale score C 11 points In the ED, patient was mildly hypotensive blood pressure 99/70, heart rate 110 bpm, respiratory rate 22 and temp 99. He was saturating well on room air. Abdominal ultrasound showed minimal ascites fluid. Abdominal x-ray showed small bowel ileus CT abdominal pelvis showed small right pleural effusion, cirrhosis, splenomegaly, moderate ascites, perigastric varices, 25 mm fat containing umbilical hernia Chest x-ray showed no active disease. In the ED, patient received 2 L bolus of fluids and Zosyn x 1. Patient met 2/4 SIRS criteria with tachycardia, leukocytosis and possible source of infection with elevated lactic acid. Patient remains +3 pitting edema on lower extremity on b/l hips U/S guided paracentesis not completed as there is minimal ascites noted on imaging Plan: Continue IV antibiotics Zosyn 3.375 g Q6 hourly, [08/30? Increased Spironolactone 25 mg bid Increased IV Lasix 40 mg daily Continue lactulose 30 mg 3 times daily as needed Continue prednisone 40 mg for 28 days as MDF 42.3 points GI consulted, appreciate recommendations Replete electrolytes as necessary Bleeding precautions Avoiding hepatotoxic agents #Non-anion gap metabolic acidosis #Respiratory alkalosis #Lactic acidosis #Electrolyte abnormalities Chemistry panel was significant for sodium 132 and chloride 108 and non-anion gap metabolic acidosis with bicarb 13.8 and anion gap 10. Kidney function showed BUN 17 and creatinine 1.1 with baseline creatinine 0.8 from 08/26/2024. Lactic acid was elevated at 5.9--> 3.2 ABGs showed pH 7.45, pCO2 19, pO2 149, bicarb 14.7 on CHEM panel FiO2 21% Most likely Primary Respiratory Alkalosis, Chronic, with: Secondary Metabolic Acidosis and Additional Non-Gap Metabolic Acidosis. NAGMA could be related to RTA 2 ampoule of bicarb given by admitting team Based on bicarb, expected pCO2 is 29?2; however, pCO2 on ABG shows 19 Delta delta is -8.5 which equates to mixed non-anion gap metabolic acidosis along with respiratory alkalosis Patient's respiratory alkalosis is likely secondary to increased work of breathing Non-anion gap metabolic acidosis could be secondary to an RTA; however, more likely secondary to cirrhosis and/or GI loss from bleed 21.0?mmol/L Urine anion gap positive Plan: Sodium bicarb tablets ordered Replete as needed Monitor with morning labs Treating underlying infection with IV antibiotics to reduce respiratory alkalotic state Will consider consulting nephrology for possible RTA #Anemia of Chronic Deficiency #History of GI bleed #History of gastric esophageal versus s/p banding on 08/07/24 #History of hemorrhoids per colonoscopy on 08/08/24 Labs were significant for hemoglobin 7.6 to 7.8 History of IR embolization and massive blood transfusion protocol was given during previous admission 08/31/2024: Hemoglobin did downtrend from 7.8-7.0 09/01/2024: Hemoglobin uptrending from 7.0-7.4 after 1 unit PRBC Transfused a total of 2u pRBC Iron panel: iron 34, TIBC 191, Iron saturation 17% and ferritin 37 (low normal) EGD shows Grade 2 esophageal varices, completely eradicated and banded. Gastritis with characteristic erythema, normal second portion of duodenum. Plan: Continue octreotide day 4/5 PUD diet Consider iron supplementation for underlying iron deficiency Hospital Management: Lines: PIV Diet: N.p.o. Bowel: Lactulose GI prophylaxis: Protonix 40 mg IV daily twice daily, octreotide drip DVT prophylaxis: SCDs Disposition: Pending improvement in peripheral edema, monitoring acidosis and completing octreotide gtt. Code: Full Patient seen and examined with attending Dr. Soliz and senior resident Dr. Cheryl Schwarz, PGY-1 Attending Provider Attestation/Addendum Dk, Netta Soliz, , attest that I was physically present for the cisneros portions of the service and evaluated the patient with the resident and I reviewed and discussed the case with the resident and agree with the resident's findings and plans of care as documented above Gutierreztnet seen and evaluated this AM. Patient states that he is doing well. Abdomen is distended, but minimal ascites. No need for parascentesis at this time. he denies any pain in his abdomen. Patient has 3+ pitting edema in b/l LE. Will increase diuretics to aldactone 25mg PO BID and Lasix 40mg IV BID.
[2024-09-04] MEDS: SODIUM CHLORIDE 0.9% IV (15:04)
[2024-09-04] MEDS: OCTREOTIDE ACET IV (15:04)
[2024-09-04] MEDS: SOD PHOS ADDITIVE 22.5 MMOL in SODIUM CHLORIDE 0.9% 500 ML 500 ML 82.778 MMOL IV (15:15)
--- NOTE | 2024-09-04 15:21 | PC.SS ---
SS met with patient regarding his d/c plan.? Pt is alert/oriented.? Pt was admitted for SBP, Alcoholic Cirrhosis.? Pt confirmed demographic and contact information is correct on facesheet.? Pt resides with mom and .? Pt ambulates independently without assistance or DME.? Pt is ok with all ADLs.? Pt states he has walker at home.? Pt named his friend, Marianna Minparvez medical decision maker if he is unable.? Patient?s choice is to return home upon d/c.? Pt states he has consumed alcohol on Aug 03, 2024.? Pt explained he has been consuming alcohol every day for more than 20 years but has finaly stopped.? Pt is open to community resources.? Pt states he follows Dr. Huff at the [facility]. D/C plan:? Return home Next of Kin:? ?Marianna Ball, friend, phone# [phone] PCP:? Dr. Huff at the [facility] Address:? Correct on facesheet
[2024-09-04 15:23] LABS: Slide Review Platelets confirmed
--- NOTE | 2024-09-04 15:26 | PC.SS ---
Follow up note: Continue IV Octreotide. Pt will complete IV Octreotide tomorrow. Pt will have paracentesis and waiting for surgery recommendations. Pt will return home upon dc.
[2024-09-04 16:10] LABS: Anion Gap 12 (7-16); BUN/Creatinine Ratio 15 Ratio (12-20); Blood Urea Nitrogen 12 mg/dL (9-23); Calcium 7.9 mg/dL (8.3-10.6); Carbon Dioxide 19.5 mMol/L (20.0-31.0); Chloride 111 mMol/L (98-107); Creatinine (Component) 0.8 mg/dL (0.6-1.3); Estimated Creatinine Clearance 122.4 mL/min (>60); Glucose 136 mg/dL (74-106); Osmolality,Calculated 284 (275-295); Phosphorous 1.4 mg/dL (2.4-5.1); Potassium 3.4 mMol/L (3.4-5.1); Sodium 142 mMol/L (136-145); eGFR > 60 See Note
--- NOTE | 2024-09-04 17:15 | XR_ITS ---
Examination: Abdomen sonogram, Limited Date and time of exam: September 04, 2024 1058 hours INDICATIONS: Cirrhosis, increasing ascites and abdominal distention this week Technique: Real-time machado scale transabdominal sonographic images of the upper abdomen obtained. Findings: Minimal ascitic fluid IMPRESSION: Minimal ascitic fluid
[2024-09-04] MEDS: SODIUM BICARBONATE 650 MG TABLET 325 MG PO (20:23)
[2024-09-04] MEDS: SPIRONOLACTONE 25 MG TABLET PO (20:24)
[2024-09-04] MEDS: POTASSIUM PHOS 22.5 MMOL in SODIUM CHLORIDE 0.9% 500 ML 500 ML 82.778 MMOL IV (23:05)
[2024-09-05] VITALS (12 sets, daily range): BP systolic 99–131; BP diastolic 61–89; PULSE 76–124; RESP 14–16; TEMP 36.9–37.5; O2SAT 98–100
[2024-09-05] MEDS: LACTULOSE SYRUP 20 GM/30 ML UDC 30 GM PO ×3 (05:12→21:13)
[2024-09-05] MEDS: PIPER/TAZO INJ 3.375 GM in SODIUM CHLORIDE 0.9% (P) 50 ML IV ×3 (05:12→21:13)
[2024-09-05 05:33] LABS: Basophils % (Auto) 0 % (0-2.5); Eosinophils % (Auto) 0 % (0-10); Immature Granulocytes % (Auto) 1 % (0-0); Lymphocytes # (Auto) 0.7 Thou/mm3 (1.0-4.8); Monocytes % (Auto) 7 % (0-12); Nucleated Red Blood Cell % 0 /100 WBC (0)
[2024-09-05 06:49] LABS: Alanine Aminotransferase 63 U/L (10-49); Albumin, Serum 2.5 gm/dL (3.5-5.0); Albumin/Globulin Ratio 0.7 (1.2-2.2); Alkaline Phosphatase 77 U/L (46-116); Anion Gap 12 (7-16); Aspartate Amino Transferase 57 U/L (0-34); BUN/Creatinine Ratio 20 Ratio (12-20); Bilirubin,Total 14.9 mg/dL (0.3-1.2); Blood Urea Nitrogen 12 mg/dL (9-23); Calcium (Corrected) 9.2 mg/dL (8.5-10.1); Carbon Dioxide 18.6 mMol/L (20.0-31.0); Chloride 111 mMol/L (98-107); Creatinine (Component) 0.6 mg/dL (0.6-1.3); Estimated Creatinine Clearance 162.2 mL/min (>60); Globulin 3.5 gm/dL (2.3-3.5); Glucose 133 mg/dL (74-106); Osmolality,Calculated 284 (275-295); Potassium 3.7 mMol/L (3.4-5.1); Sodium 142 mMol/L (136-145); eGFR > 60 See Note
[2024-09-05 07:14] LABS: Hematocrit 23.4 % (41.0-53.0); Immature Granulocytes Auto 0.07 Thou/mm3 (0.00-0.00); Lymphocytes % (Auto) 5 % (10-50); Mean Corpuscular HGB Conc 32.1 g/dl (31.0-37.0); Mean Corpuscular Hemoglobin 26.9 pg (25.0-35.0); Mean Corpuscular Volume 84 fL (80-100); Monocytes # (Auto) 0.9 Thou/mm3 (0.0-0.8); Neutrophils # (Auto) 11.6 Thou/mm3 (1.8-7.7); Neutrophils % (Auto) 87 % (37-80); Platelet Count 48 Thou/mm3 (140-440); RDW Standard Deviation 63.4 fL (35.1-43.9); Red Blood Count 2.79 Miln/mm3 (4.50-5.90); White Blood Count 13.3 Thou/mm3 (3.8-10.6)
[2024-09-05 07:25] LABS: Hemoglobin 7.5 g/dL (13.5-16.0)
[2024-09-05] MEDS: NICOTINE PATCH 14 MG/24 HR PATCH.TD24 TOP (08:35)
[2024-09-05] MEDS: FUROSEMIDE INJ 10 MG/ML VIAL 2 ML 40 MG IVP (08:36)
[2024-09-05] MEDS: PANTOPRAZOLE INJ 40 MG VIAL IVP ×2 (08:36→20:23)
[2024-09-05] MEDS: FOLIC ACID 1 MG TABLET PO (08:37)
[2024-09-05] MEDS: SPIRONOLACTONE 25 MG TABLET PO ×2 (08:37→20:24)
[2024-09-05] MEDS: SODIUM BICARBONATE 650 MG TABLET 325 MG PO ×2 (08:38→20:24)
[2024-09-05] MEDS: predniSONE 20 MG TABLET 40 MG PO (08:38)
[2024-09-05] MEDS: THIAMINE 100 MG TABLET PO (08:44)
[2024-09-05] MEDS: PROPRANOLOL 10 MG TABLET PO ×2 (10:20→20:23)
[2024-09-05 10:56] LABS: Magnesium 1.5 mg/dL (1.6-2.6); Phosphorous 1.9 mg/dL (2.4-5.1)
--- NOTE | 2024-09-05 11:41 | ESPR_ITS ---
<Statement entered by Nemesio Luna MD - 09/06/24 07:37> I discussed with and supervised the photography intern physician involved in the care of this patient. Patient assessment and plan was discussed with entire medicine team, including my attending. I agree with the assessment and plan as documented by photography intern doctor. Patient care was discussed with my attending physician Dr. Martínez Luna, PGY-2 Documentation for date of: 09/05/24 Subjective Subjective Interval history: 09/06/2024: No acute overnight events to report. Patient seen and examined hospital and remains severely volume overloaded with +3 pitting edema up to bilateral hips. Patient denies having any concerning symptoms at this time and abdominal pain/distention has markedly improved since admission. Patient is completing last day of octreotide drip for upper GI bleeding. Added propranolol 10 mg p.o. twice daily for portal hypertension and cirrhosis; moreover, will continue to monitor for any acute changes. Exam Vital Signs Temp Pulse Resp BP Pulse Ox O2 Del Method O2 Flow Rate 98.8 F 104 H 15 106/69 99 Room Air 3 09/05/24 08:00 09/05/24 10:20 09/05/24 08:00 09/05/24 10:20 09/05/24 08:00 09/05/24 08:00 09/01/24 17:53 Narrative Exam Physical exam GENERAL: Patient is awake, answering questions appropriately, appears stated age HEENT: PERRLA, EOMI, oropharynx clear. Scleral icterus present HEART: Sinus tachycardia with regular rhythm, normal S1/S2, no m/r/g LUNGS: CTAB. No crackles, rales, rhonchi or wheezing ABDOMEN: Soft, diffusely distended, mild fluid wave noted. Nontender on palpation. Past paracentesis site bandaged and draining yellow fluid. EXTREMITIES: Bilateral +2 lower extremity pitting edema up to hips, erythema noted on bilateral shins, no pain elicited with dorsiflexion or plantarflexion NEUROLOGICAL: Alert oriented x 3, no focal neurologic deficits, moves extremities x 4 Objective Labs 09/05/24 06:45 09/05/24 05:05 Labs: Laboratory Results - last 24 hr 09/04/24 09/04/24 09/05/24 05:16 15:30 05:05 WBC RBC Hgb Hct MCV MCH MCHC RDW Std Deviation Plt Count Neut % (Auto) Lymph % (Auto) [place] % (Auto) Eos % (Auto) Baso % (Auto) Neut # (Auto) Lymph # (Auto) [place] # (Auto) Eos # (Auto) Baso # (Auto) Immature Gran # (Auto) Absolute Nucleated RBC Immature Gran % Nucleated RBC % Sodium 142 142 Potassium 3.4 D 3.7 Chloride 111 H 111 H Carbon Dioxide 19.5 L 18.6 L Anion Gap 12 12 BUN 12 12 Creatinine 0.8 0.6 Estim Creat Clear Calc 122.4 162.2 eGFR > 60 > 60 BUN/Creatinine Ratio 15 20 Glucose 136 H 133 H Calculated Osmolality 284 284 Calcium 7.9 L 8.0 L Corrected Calcium 9.2 Phosphorus 1.4 L Magnesium Total Bilirubin 14.9 H D AST 57 H ALT 63 H Alkaline Phosphatase 77 Total Protein 6.0 Albumin 2.5 L Globulin 3.5 Albumin/Globulin Ratio 0.7 L Misc Test Result Platelets confirmed Blood Bank Comment 09/05/24 09/05/24 09/05/24 06:45 08:01 09:25 WBC 13.3 H RBC 2.79 L Hgb 7.5 L Hct 23.4 L MCV 84 MCH 26.9 MCHC 32.1 RDW Std Deviation 63.4 H Plt Count 48 L Neut % (Auto) 87 H Lymph % (Auto) 5 L [place] % (Auto) 7 Eos % (Auto) 0 Baso % (Auto) 0 Neut # (Auto) 11.6 H Lymph # (Auto) 0.7 L [place] # (Auto) 0.9 H Eos # (Auto) 0.0 Baso # (Auto) 0.0 Immature Gran # (Auto) 0.07 H Absolute Nucleated RBC 0.00 Immature Gran % 1 H Nucleated RBC % 0 Sodium Potassium Chloride Carbon Dioxide Anion Gap BUN Creatinine Estim Creat Clear Calc eGFR BUN/Creatinine Ratio Glucose Calculated Osmolality Calcium Corrected Calcium Phosphorus 1.9 L Magnesium 1.5 L Total Bilirubin AST ALT Alkaline Phosphatase Total Protein Albumin Globulin Albumin/Globulin Ratio Misc Test Result Blood Bank Comment PLATP Ready ABG Interpretation ABG results: 08/31/24 08/31/24 00:36 16:50 ABG pH 7.45 ABG pCO2 19 L* ABG pO2 149 H ABG HCO3 14 L ABG O2 Saturation 101 H ABG Base Excess -9 L VBG pH 7.35 VBG pCO2 24 L VBG pO2 41 VBG Base Excess -12 L Quality Measures Quality Measures VTE prophylaxis (SCDs) Assessment & Plan Assessment Current Active Medications: Generic Name Dose Route Start Last Admin Trade Name Freq PRN Reason Stop Dose Admin Acetaminophen 650 mg 08/30/24 22:27 Acetaminophen 325 Mg Tablet PO 09/29/24 22:26 Q6H PRN Fever >101.5 Acetaminophen 650 mg 08/30/24 22:31 Acetaminophen Supp 650 Mg Supp NM 09/29/24 22:30 Q6H PRN PAIN SCALE 1-3 (mild Dextrose 25 ml 08/31/24 02:19 Dextrose 50%-Water Inj 50 Ml Syringe IV 09/30/24 02:18 Q15MIN PRN BG 50-70 responsive npo pt Dextrose 50 ml 08/31/24 02:19 Dextrose 50%-Water Inj 50 Ml Syringe IV 09/30/24 02:18 Q15MIN PRN BG <50 OR BG <70 & pt unresponsive Folic Acid 1 mg 08/31/24 09:00 09/05/24 08:37 Folic Acid 1 Mg Tablet PO 09/30/24 08:59 1 mg QDAY CATHY Administration Furosemide 40 mg 09/05/24 09:00 09/05/24 08:36 Furosemide Inj 10 Mg/Ml Vial 2 Ml IVP 10/05/24 08:59 40 mg QDAY CATHY Administration Glucagon 1 mg 08/31/24 02:19 Glucagon Inj 1 Mg Vial IM Q15MIN PRN BG <70, and no IV access Octreotide Acetate 1,000 mcg/ 252 mls @ 12.6 mls/hr 08/31/24 19:00 09/04/24 15:04 Sodium Chloride IV 09/05/24 18:59 50 mcg/hr .Q20H CTAHY 12.6 mls/hr Administration Protocol 50 MCG/HR Piperacillin Sod/Tazobactam 50 mls @ 12.5 mls/hr 09/03/24 14:00 09/05/24 05:12 Sod 3.375 gm/ Sodium Chloride IV 09/10/24 05:59 12.5 mls/hr Q8HR CATHY Administration Lactulose 30 gm 09/01/24 14:00 09/05/24 05:12 Lactulose Syrup 20 Gm/30 Ml Udc PO 10/01/24 13:59 30 gm TID CATHY Administration Protocol Midodrine 5 mg 08/31/24 12:01 Midodrine 5 Mg Tablet PO 09/30/24 13:59 TID PRN systolic bp <90 Nicotine 14 mg 08/31/24 09:00 09/05/24 08:35 Nicotine Patch 14 Mg/24 Hr Patch.Td24 TOP 09/30/24 08:59 14 mg QDAY CATHY Administration Ondansetron HCl 4 mg 08/30/24 22:31 Ondansetron Inj 2 Mg/Ml Inj 2 Ml IV 09/29/24 22:30 Q6H PRN NAUSEA OR VOMITING Protocol Pantoprazole Sodium 40 mg 08/30/24 22:35 09/05/24 08:36 Pantoprazole Inj 40 Mg Vial IVP 09/29/24 22:34 40 mg Q12HR CATHY Administration Prednisone 40 mg 08/31/24 09:00 09/05/24 08:38 Prednisone 20 Mg Tablet PO 09/28/24 08:59 40 mg QDAY CATHY Administration Propranolol HCl 10 mg 09/05/24 09:45 09/05/24 10:20 Propranolol 10 Mg Tablet PO 10/05/24 09:44 10 mg BID CATHY Administration Sennosides 1 tab 08/30/24 22:31 Senna Tablet PO 09/29/24 22:30 QDAY PRN constipation Protocol Sodium Bicarbonate 325 mg 09/04/24 21:00 09/05/24 08:38 Sodium Bicarbonate 650 Mg Tablet PO 10/04/24 20:59 325 mg BID CATHY Administration Spironolactone 25 mg 09/04/24 21:00 09/05/24 08:37 Spironolactone 25 Mg Tablet PO 10/04/24 20:59 25 mg BID CATHY Administration Thiamine HCl 100 mg 08/31/24 09:00 09/05/24 08:44 Thiamine 100 Mg Tablet PO 09/30/24 08:59 100 mg QDAY CATHY Administration Plan 44-year-old male with past medical history of alcohol abuse, alcoholic cirrhosis status post variceal banding from GI bleed performed on 08/07/24 showing grade 1 esophageal varices and colonoscopy performed on 08/08/2024 showing hemorrhoids presented with abdominal discomfort, possible blood in stool, significant lower extremity edema with difficult urination from couple of days. Patient is admitted for sepsis likely secondary to SBP with underlying history of alcohol induced liver cirrhosis and anasarca. #Sepsis likely secondary to SBP #Alcohol induced decompensated liver cirrhosis and ascites with anasarca #Leukocytosis #Hyperbilirubinemia #Coagulopathy #Thrombocytopenia #Hypoalbuminemia #Hyperammonemia Patient presented from PCP follow-up with increased abdominal girth, decreased urination, abdominal pain and bilateral lower extremity edema Patient has quit drinking alcohol a month ago and is currently AOx3. Labs were significant for leukocytosis white count 16, normocytic anemia hemoglobin 7.6 and elevated LFTs with elevated T. bili and direct bili. MDF score 42.3 point Poor Prognosis Child Hale score C 11 points U/S guided paracentesis not completed as there is minimal ascites noted on imaging Patient remains +3 pitting edema on lower extremity on b/l hips Net negative of 2 L since admission; however, not fairly accurate as the patient has been drinking outside hospital beverages Plan: Started patient on propranolol 10 mg p.o. twice daily Continue IV antibiotics Zosyn 3.375 g Q6 hourly, [08/30? Continue Spironolactone 25 mg bid Continue IV Lasix 40 mg daily Continue lactulose 30 mg 3 times daily as needed Continue prednisone 40 mg for 28 days as MDF 42.3 points GI consulted, appreciate recommendations Replete electrolytes as necessary Bleeding precautions Avoiding hepatotoxic agents #Non-anion gap metabolic acidosis #Respiratory alkalosis #Lactic acidosis #Electrolyte abnormalities Chemistry panel was significant for sodium 132 and chloride 108 and non-anion gap metabolic acidosis with bicarb 13.8 and anion gap 10. Kidney function showed BUN 17 and creatinine 1.1 with baseline creatinine 0.8 from 08/26/2024. Lactic acid was elevated at 5.9--> 3.2 ABGs showed pH 7.45, pCO2 19, pO2 149, bicarb 14.7 on CHEM panel FiO2 21% Most likely Primary Respiratory Alkalosis, Chronic, with: Secondary Metabolic Acidosis and Additional Non-Gap Metabolic Acidosis. NAGMA could be related to RTA 2 ampoule of bicarb given by admitting team Based on bicarb, expected pCO2 is 29?2; however, pCO2 on ABG shows 19 Delta delta is -8.5 which equates to mixed non-anion gap metabolic acidosis along with respiratory alkalosis Patient's respiratory alkalosis is likely secondary to increased work of breathing Non-anion gap metabolic acidosis could be secondary to an RTA; however, more likely secondary to cirrhosis and/or GI loss from bleed 21.0?mmol/L Urine anion gap positive Plan: Sodium bicarb tablets ordered Replete as needed Monitor with morning labs Treating underlying infection with IV antibiotics to reduce respiratory alkalotic state Will consider consulting nephrology for possible RTA #Anemia of Chronic Deficiency #History of GI bleed #History of gastric esophageal versus s/p banding on 08/07/24 #History of hemorrhoids per colonoscopy on 08/08/24 Labs were significant for hemoglobin 7.6 to 7.8 History of IR embolization and massive blood transfusion protocol was given during previous admission 08/31/2024: Hemoglobin did downtrend from 7.8-7.0 09/01/2024: Hemoglobin uptrending from 7.0-7.4 after 1 unit PRBC Transfused a total of 2u pRBC Iron panel: iron 34, TIBC 191, Iron saturation 17% and ferritin 37 (low normal) EGD shows Grade 2 esophageal varices, completely eradicated and banded. Gastritis with characteristic erythema, normal second portion of duodenum. Plan: Continue octreotide day 11/18, completing PUD diet Hospital Management: Lines: PIV Diet: N.p.o. Bowel: Lactulose GI prophylaxis: Protonix 40 mg IV daily twice daily, octreotide drip DVT prophylaxis: SCDs Disposition: Pending improvement in peripheral edema, monitoring acidosis and completing octreotide gtt. Code: Full Patient seen and examined with attending Dr. Soliz and senior resident Dr. Cheryl Schwarz, PGY-1 Attending Provider Attestation/Addendum Netta Root, DO, attest that I was physically present for the cisneros portions of the service and evaluated the patient with the resident and I reviewed and discussed the case with the resident and agree with the resident's findings and plans of care as documented above Patient seen and evaluated this AM. He states he is feeling better. Patient has been drinking coconut water from home that does not appear to have been accounted for with intake. Emphasized to patient that he is on a fluid restriction as he continues to have 3+ b/l LE edema. Continue with IV diuresis. Abdomen appears soft and nontender. Continue to monitor I's and O's. Will start on propranolol due to hx of esophageal varices and tachycardia noted.
[2024-09-05 12:27] LABS: Slide Review Platelets confirmed
[2024-09-05 12:55] LABS: Lactate (Lactic Acid) 4.8 mMol/L (0.4-2.0)
[2024-09-05 12:56] LABS: Reflex Lactate? Y
[2024-09-05 13:23] LABS: Lactic Acid, 3 HR 2.9 mMol/L (0.4-2.0)
[2024-09-05] MEDS: Magnesium Sulfate 4 GM Ivpb 4 GM/50 ML BAG IV (14:22)
[2024-09-05] MEDS: POT PHOS 15 mMol in NS 250 ML 15 MMOL/250 ML BAG 62.5 MMOL IV (14:22)
[2024-09-05] MEDS: OCTREOTIDE ACET IV (15:31)
[2024-09-05] MEDS: SODIUM CHLORIDE 0.9% IV (15:31)
--- NOTE | 2024-09-05 19:34 | PD.IMPROG ---
Documentation for date of: 09/05/24 Subjective Subjective Interval history: Patient evaluated Alert oriented Pro time INR 1.7 platelet count 48,000 Total bilirubin 14.9 Exam Vital Signs Temp Pulse Resp BP Pulse Ox O2 Del Method O2 Flow Rate 99.5 F 82 15 111/72 99 Room Air 3 09/05/24 16:00 09/05/24 16:00 09/05/24 16:00 09/05/24 16:00 09/05/24 16:00 09/05/24 16:00 09/01/24 17:53 Objective Labs 09/05/24 06:45 09/05/24 05:05 Labs: Laboratory Results - last 24 hr 09/05/24 09/05/24 09/05/24 05:05 06:45 08:01 WBC 13.3 H RBC 2.79 L Hgb 7.5 L Hct 23.4 L MCV 84 MCH 26.9 MCHC 32.1 RDW Std Deviation 63.4 H Plt Count 48 L Neut % (Auto) 87 H Lymph % (Auto) 5 L [place] % (Auto) 7 Eos % (Auto) 0 Baso % (Auto) 0 Neut # (Auto) 11.6 H Lymph # (Auto) 0.7 L [place] # (Auto) 0.9 H Eos # (Auto) 0.0 Baso # (Auto) 0.0 Immature Gran # (Auto) 0.07 H Absolute Nucleated RBC 0.00 Immature Gran % 1 H Nucleated RBC % 0 Sodium 142 Potassium 3.7 Chloride 111 H Carbon Dioxide 18.6 L Anion Gap 12 BUN 12 Creatinine 0.6 Estim Creat Clear Calc 162.2 eGFR > 60 BUN/Creatinine Ratio 20 Glucose 133 H Calculated Osmolality 284 Lactic Acid Calcium 8.0 L Corrected Calcium 9.2 Phosphorus Magnesium Total Bilirubin 14.9 H D AST 57 H ALT 63 H Alkaline Phosphatase 77 Total Protein 6.0 Albumin 2.5 L Globulin 3.5 Albumin/Globulin Ratio 0.7 L Misc Test Result Platelets confirmed Blood Bank Comment PLATP Ready 09/05/24 09/05/24 09:25 13:20 WBC RBC Hgb Hct MCV MCH MCHC RDW Std Deviation Plt Count Neut % (Auto) Lymph % (Auto) [place] % (Auto) Eos % (Auto) Baso % (Auto) Neut # (Auto) Lymph # (Auto) [place] # (Auto) Eos # (Auto) Baso # (Auto) Immature Gran # (Auto) Absolute Nucleated RBC Immature Gran % Nucleated RBC % Sodium Potassium Chloride Carbon Dioxide Anion Gap BUN Creatinine Estim Creat Clear Calc eGFR BUN/Creatinine Ratio Glucose Calculated Osmolality Lactic Acid 4.8 H* 2.9 H Calcium Corrected Calcium Phosphorus 1.9 L Magnesium 1.5 L Total Bilirubin AST ALT Alkaline Phosphatase Total Protein Albumin Globulin Albumin/Globulin Ratio Misc Test Result Blood Bank Comment Impressions Impression: # End-stage liver disease with acute decompensation # Thrombocytopenia and coagulopathy Will speak with case management in the morning to identify his insurance coverage for a possible liver transplant evaluation ABG Interpretation ABG results: 08/31/24 08/31/24 00:36 16:50 ABG pH 7.45 ABG pCO2 19 L* ABG pO2 149 H ABG HCO3 14 L ABG O2 Saturation 101 H ABG Base Excess -9 L VBG pH 7.35 VBG pCO2 24 L VBG pO2 41 VBG Base Excess -12 L Assessment & Plan A&P Narrative # Acute decompensation of the chronic liver disease secondary to alcohol MELD score of 32 Patient has stopped drinking since his last admission Continue to monitor LFTs. 1 L p.o. fluid restriction in 24 hours 2 g sodium diet # Possibly SBP broad-spectrum IV antibiotics # Perigastric and esophageal varices Repeat upper endoscopy prior to discharge for further band ligation of the esophageal varices Will follow the patient Time Spent With Patient Time: Total time spent is greater than 50% in coordination of care (as documented) at patient's floor/unit and/or counseling patient:
[2024-09-06] VITALS (10 sets, daily range): BP systolic 105–122; BP diastolic 64–78; PULSE 70–92; RESP 14–20; TEMP 36.6–37.3; O2SAT 97–100; BMI 30.7
[2024-09-06] MEDS: LACTULOSE SYRUP 20 GM/30 ML UDC 30 GM PO ×3 (05:22→21:23)
[2024-09-06] MEDS: PIPER/TAZO INJ 3.375 GM in SODIUM CHLORIDE 0.9% (P) 50 ML IV ×3 (05:22→21:23)
[2024-09-06 05:26] LABS: Basophils % (Auto) 0 % (0-2.5); Eosinophils % (Auto) 0 % (0-10); Hematocrit 23.4 % (41.0-53.0); Immature Granulocytes % (Auto) 1 % (0-0); Lymphocytes # (Auto) 0.8 Thou/mm3 (1.0-4.8); Lymphocytes % (Auto) 6 % (10-50); Mean Corpuscular HGB Conc 32.9 g/dl (31.0-37.0); Mean Corpuscular Hemoglobin 27.2 pg (25.0-35.0); Mean Corpuscular Volume 83 fL (80-100); Monocytes % (Auto) 7 % (0-12); Neutrophils # (Auto) 12.4 Thou/mm3 (1.8-7.7); Neutrophils % (Auto) 87 % (37-80); Nucleated Red Blood Cell % 0 /100 WBC (0); RDW Standard Deviation 65.1 fL (35.1-43.9); Red Blood Count 2.83 Miln/mm3 (4.50-5.90); White Blood Count 14.3 Thou/mm3 (3.8-10.6)
[2024-09-06 05:48] LABS: Hemoglobin 7.7 g/dL (13.5-16.0); Platelet Count 51 Thou/mm3 (140-440)
[2024-09-06 05:49] LABS: Slide Review Platelets confirmed
[2024-09-06 06:14] LABS: Alanine Aminotransferase 60 U/L (10-49); Albumin, Serum 2.3 gm/dL (3.5-5.0); Albumin/Globulin Ratio 0.7 (1.2-2.2); Alkaline Phosphatase 69 U/L (46-116); Anion Gap 8 (7-16); Aspartate Amino Transferase 61 U/L (0-34); BUN/Creatinine Ratio 22 Ratio (12-20); Bilirubin,Total 13.4 mg/dL (0.3-1.2); Blood Urea Nitrogen 13 mg/dL (9-23); Calcium 7.9 mg/dL (8.3-10.6); Calcium (Corrected) 9.3 mg/dL (8.5-10.1); Carbon Dioxide 21.8 mMol/L (20.0-31.0); Chloride 109 mMol/L (98-107); Creatinine (Component) 0.6 mg/dL (0.6-1.3); Estimated Creatinine Clearance 162.2 mL/min (>60); Globulin 3.2 gm/dL (2.3-3.5); Glucose 131 mg/dL (74-106); Osmolality,Calculated 279 (275-295); Potassium 4.1 mMol/L (3.4-5.1); Sodium 139 mMol/L (136-145); Total Protein 5.5 gm/dL (5.7-8.2); eGFR > 60 See Note
[2024-09-06] MEDS: FUROSEMIDE INJ 10 MG/ML VIAL 2 ML 40 MG IVP (08:57)
[2024-09-06] MEDS: PANTOPRAZOLE INJ 40 MG VIAL IVP ×2 (08:58→21:23)
[2024-09-06] MEDS: SPIRONOLACTONE 25 MG TABLET PO ×2 (08:59→21:24)
[2024-09-06] MEDS: SODIUM BICARBONATE 650 MG TABLET 325 MG PO ×2 (08:59→21:23)
[2024-09-06] MEDS: THIAMINE 100 MG TABLET PO (09:00)
[2024-09-06] MEDS: PROPRANOLOL 10 MG TABLET PO ×2 (09:00→21:24)
[2024-09-06] MEDS: FOLIC ACID 1 MG TABLET PO (09:00)
[2024-09-06] MEDS: predniSONE 20 MG TABLET 40 MG PO (09:00)
[2024-09-06] MEDS: NICOTINE PATCH 14 MG/24 HR PATCH.TD24 TOP (09:01)
--- NOTE | 2024-09-06 09:58 | PC.SS ---
Addendum entered by Naima Chaves 09/06/24 15:09: SS also provided pt with AOD, [facility] information and [facility] help line. Original Note: Follow up note: [facility]. Pt is possible d/c home. SS provided pt with [facility] list and AA meetings information.
[2024-09-06] MEDS: ALBUMIN HUMAN 25% IVPB 25 GM/100 ML BTL IV (11:18)
--- NOTE | 2024-09-06 12:58 | PC.PT ---
Attempt to initiate PT evaluation at 1145, Patient states he is I and was ambulating already to the restroom without AD. This is confirmed by HOME DELIVERY DRIVER that patient is I. No further needs at this time. Will cancel PT evaluation. Patient is at his PLOF.
--- NOTE | 2024-09-06 13:05 | ESPR_ITS ---
<Statement entered by Nemesio Luna MD - 09/06/24 15:53> I discussed with and supervised the software intern physician involved in the care of this patient. Patient assessment and plan was discussed with entire medicine team, including my attending. I agree with the assessment and plan as documented by software intern doctor. Patient care was discussed with my attending physician Dr. Martínez Luna, PGY-2 Documentation for date of: 09/06/24 Subjective Subjective Interval history: 09/06/2024: No acute overnight events to report. Patient seen and examined in hospital bed remains volume overloaded with +3 pitting edema, but with some improvement as edema extends up to thighs and not hips as seen previously. Per chart, patient is net 5 L negative since admission; however, patient has been drinking fluids that have not been monitored. Patient is aware of this and has stopped drinking excessively. Will continue treating with IV antibiotics and reassess for improvement in anasarca. Expected disposition within the next 24 to 48 hours upon improvement of peripheral edema with diuretics and IV albumin. Exam Vital Signs Temp Pulse Resp BP Pulse Ox O2 Del Method O2 Flow Rate 98.3 F 83 19 114/78 99 Room Air 3 09/06/24 08:00 09/06/24 09:00 09/06/24 08:00 09/06/24 09:00 09/06/24 08:00 09/06/24 08:00 09/01/24 17:53 Narrative Exam Physical exam GENERAL: Patient is awake, answering questions appropriately, appears stated age, jaundiced HEENT: PERRLA, EOMI, oropharynx clear. Scleral icterus present HEART: Sinus tachycardia with regular rhythm, normal S1/S2, no m/r/g LUNGS: CTAB. No crackles, rales, rhonchi or wheezing ABDOMEN: Soft, marked improvement in distention. Nontender on palpation. Past paracentesis site bandaged EXTREMITIES: Bilateral +2 lower extremity pitting edema up to thighs, no pain elicited with dorsiflexion or plantarflexion NEUROLOGICAL: Alert oriented x 3, no focal neurologic deficits, moves extremities x 4 Objective Labs 09/07/24 06:01 09/07/24 06:01 Labs: Laboratory Results - last 24 hr 09/05/24 09/06/24 13:20 04:55 WBC 14.3 H RBC 2.83 L Hgb 7.7 L Hct 23.4 L MCV 83 MCH 27.2 MCHC 32.9 RDW Std Deviation 65.1 H Plt Count 51 L Neut % (Auto) 87 H Lymph % (Auto) 6 L [place] % (Auto) 7 Eos % (Auto) 0 Baso % (Auto) 0 Neut # (Auto) 12.4 H Lymph # (Auto) 0.8 L [place] # (Auto) 1.0 H Eos # (Auto) 0.0 Baso # (Auto) 0.0 Immature Gran # (Auto) 0.10 H Absolute Nucleated RBC 0.00 Immature Gran % 1 H Nucleated RBC % 0 Sodium 139 Potassium 4.1 Chloride 109 H Carbon Dioxide 21.8 Anion Gap 8 BUN 13 Creatinine 0.6 Estim Creat Clear Calc 162.2 eGFR > 60 BUN/Creatinine Ratio 22 H Glucose 131 H Calculated Osmolality 279 Lactic Acid 2.9 H Calcium 7.9 L Corrected Calcium 9.3 Total Bilirubin 13.4 H D AST 61 H ALT 60 H Alkaline Phosphatase 69 Total Protein 5.5 L Albumin 2.3 L Globulin 3.2 Albumin/Globulin Ratio 0.7 L Misc Test Result Platelets confirmed ABG Interpretation ABG results: 08/31/24 08/31/24 00:36 16:50 ABG pH 7.45 ABG pCO2 19 L* ABG pO2 149 H ABG HCO3 14 L ABG O2 Saturation 101 H ABG Base Excess -9 L VBG pH 7.35 VBG pCO2 24 L VBG pO2 41 VBG Base Excess -12 L Quality Measures Quality Measures VTE prophylaxis (SCDs) Assessment & Plan Assessment Current Active Medications: Generic Name Dose Route Start Last Admin Trade Name Cathleen PRN Reason Stop Dose Admin Acetaminophen 650 mg 08/30/24 22:27 Acetaminophen 325 Mg Tablet PO 09/29/24 22:26 Q6H PRN Fever >101.5 Acetaminophen 650 mg 08/30/24 22:31 Acetaminophen Supp 650 Mg Supp AR 09/29/24 22:30 Q6H PRN PAIN SCALE 1-3 (mild Dextrose 25 ml 08/31/24 02:19 Dextrose 50%-Water Inj 50 Ml Syringe IV 09/30/24 02:18 Q15MIN PRN BG 50-70 responsive npo pt Dextrose 50 ml 08/31/24 02:19 Dextrose 50%-Water Inj 50 Ml Syringe IV 09/30/24 02:18 Q15MIN PRN BG <50 OR BG <70 & pt unresponsive Folic Acid 1 mg 08/31/24 09:00 09/06/24 09:00 Folic Acid 1 Mg Tablet PO 09/30/24 08:59 1 mg QDAY CATHY Administration Furosemide 40 mg 09/05/24 09:00 09/06/24 08:57 Furosemide Inj 10 Mg/Ml Vial 2 Ml IVP 10/05/24 08:59 40 mg QDAY CATHY Administration Glucagon 1 mg 08/31/24 02:19 Glucagon Inj 1 Mg Vial IM Q15MIN PRN BG <70, and no IV access Piperacillin Sod/Tazobactam 50 mls @ 12.5 mls/hr 09/03/24 14:00 09/06/24 05:22 Sod 3.375 gm/ Sodium Chloride IV 09/10/24 05:59 12.5 mls/hr Q8HR CATHY Administration Lactulose 30 gm 09/01/24 14:00 09/06/24 05:22 Lactulose Syrup 20 Gm/30 Ml Udc PO 10/01/24 13:59 30 gm TID CATHY Administration Protocol Midodrine 5 mg 08/31/24 12:01 Midodrine 5 Mg Tablet PO 09/30/24 13:59 TID PRN systolic bp <90 Nicotine 14 mg 08/31/24 09:00 09/06/24 09:01 Nicotine Patch 14 Mg/24 Hr Patch.Td24 TOP 09/30/24 08:59 14 mg QDAY CATHY Administration Ondansetron HCl 4 mg 08/30/24 22:31 Ondansetron Inj 2 Mg/Ml Inj 2 Ml IV 09/29/24 22:30 Q6H PRN NAUSEA OR VOMITING Protocol Pantoprazole Sodium 40 mg 08/30/24 22:35 09/06/24 08:58 Pantoprazole Inj 40 Mg Vial IVP 09/29/24 22:34 40 mg Q12HR CATHY Administration Prednisone 30 mg 09/07/24 09:00 Prednisone 20 Mg Tablet PO 09/14/24 08:59 QDAY CATHY Propranolol HCl 10 mg 09/05/24 09:45 09/06/24 09:00 Propranolol 10 Mg Tablet PO 10/05/24 09:44 10 mg BID CATHY Administration Sennosides 1 tab 08/30/24 22:31 Senna Tablet PO 09/29/24 22:30 QDAY PRN constipation Protocol Sodium Bicarbonate 325 mg 09/04/24 21:00 09/06/24 08:59 Sodium Bicarbonate 650 Mg Tablet PO 10/04/24 20:59 325 mg BID CATHY Administration Spironolactone 25 mg 09/04/24 21:00 09/06/24 08:59 Spironolactone 25 Mg Tablet PO 10/04/24 20:59 25 mg BID CATHY Administration Thiamine HCl 100 mg 08/31/24 09:00 09/06/24 09:00 Thiamine 100 Mg Tablet PO 09/30/24 08:59 100 mg QDAY CATHY Administration Plan 44-year-old male with past medical history of alcohol abuse, alcoholic cirrhosis status post variceal banding from GI bleed performed on 08/07/24 showing grade 1 esophageal varices and colonoscopy performed on 08/08/2024 showing hemorrhoids presented with abdominal discomfort, possible blood in stool, significant lower extremity edema with difficult urination from couple of days. Patient is admitted for sepsis likely secondary to SBP with underlying history of alcohol induced liver cirrhosis and anasarca. #Sepsis likely secondary to SBP #Alcohol induced decompensated liver cirrhosis and ascites with anasarca #Leukocytosis #Hyperbilirubinemia #Coagulopathy #Thrombocytopenia #Hypoalbuminemia #Hyperammonemia Patient presented from PCP follow-up with increased abdominal girth, decreased urination, abdominal pain and bilateral lower extremity edema Patient has quit drinking alcohol a month ago and is currently AOx3. Labs were significant for leukocytosis white count 16, normocytic anemia hemoglobin 7.6 and elevated LFTs with elevated T. bili and direct bili. MDF score 42.3 point Poor Prognosis Child Hale score C 11 points U/S guided paracentesis not completed as there is minimal ascites noted on imaging Patient remains +3 pitting edema on lower extremity on b/l thighs Net negative of 5 L since admission; however, not fairly accurate as the patient has been drinking outside hospital beverages Plan: X 1 IV albumin 25 g Continue propranolol 10 mg p.o. twice daily Continue IV antibiotics Zosyn 3.375 g Q6 hourly, [08/30? Continue Spironolactone 25 mg bid Continue IV Lasix 40 mg daily Continue lactulose 30 mg 3 times daily as needed Tapering prednisone down to 30 mg daily for 1 week, will discharge with prednisone taper GI consulted, appreciate recommendations Replete electrolytes as necessary Bleeding precautions Avoiding hepatotoxic agents #Non-anion gap metabolic acidosis, resolved #Respiratory alkalosis, resolved #Lactic acidosis, improved #Electrolyte abnormalities Chemistry panel was significant for sodium 132 and chloride 108 and non-anion gap metabolic acidosis with bicarb 13.8 and anion gap 10. Kidney function showed BUN 17 and creatinine 1.1 with baseline creatinine 0.8 from 08/26/2024. Lactic acid was elevated at 5.9--> 3.2 ABGs showed pH 7.45, pCO2 19, pO2 149, bicarb 14.7 on CHEM panel FiO2 21% Most likely Primary Respiratory Alkalosis, Chronic, with: Secondary Metabolic Acidosis and Additional Non-Gap Metabolic Acidosis. NAGMA could be related to RTA 2 ampoule of bicarb given by admitting team Based on bicarb, expected pCO2 is 29?2; however, pCO2 on ABG shows 19 Delta delta is -8.5 which equates to mixed non-anion gap metabolic acidosis along with respiratory alkalosis Patient's respiratory alkalosis is likely secondary to increased work of breathing Non-anion gap metabolic acidosis could be secondary to an RTA; however, more likely secondary to cirrhosis and/or GI loss from bleed 21.0?mmol/L Urine anion gap positive Plan: Continue sodium bicarb tablets Replete as needed Monitor with morning labs Will consider consulting nephrology for possible RTA #Anemia of Chronic Deficiency #History of GI bleed #History of gastric esophageal versus s/p banding on 08/07/24 #History of hemorrhoids per colonoscopy on 08/08/24 Labs were significant for hemoglobin 7.6 to 7.8 History of IR embolization and massive blood transfusion protocol was given during previous admission 08/31/2024: Hemoglobin did downtrend from 7.8-7.0 09/01/2024: Hemoglobin uptrending from 7.0-7.4 after 1 unit PRBC Transfused a total of 2u pRBC Iron panel: iron 34, TIBC 191, Iron saturation 17% and ferritin 37 (low normal) EGD shows Grade 2 esophageal varices, completely eradicated and banded. Gastritis with characteristic erythema, normal second portion of duodenum. Plan: PUD diet Hospital Management: Lines: PIV Diet: PUD, bland Bowel: Lactulose GI prophylaxis: Protonix 40 mg IV daily twice daily DVT prophylaxis: SCDs Disposition: Pending improvement in peripheral edema Code: Full Patient seen and examined with attending Dr. Soliz and senior resident Dr. Cheryl Schwarz, PGY-1 Attending Provider Attestation/Addendum I, Netta Soliz, DO, attest that I was physically present for the cisneros portions of the service and evaluated the patient with the resident and I reviewed and discussed the case with the resident and agree with the resident's findings and plans of care as documented above Patient seen and evaluated this AM. He states he is doing well. He continues to have 3+ pitting edema in b/l LE. Patient states he has been ambulating independently in the room. Will continue with IV diuresis.
--- NOTE | 2024-09-06 19:42 | PD.IMPROG ---
Documentation for date of: 09/06/24 Subjective Subjective Interval history: Patient evaluated Hemoglobin hematocrit 7.7 and 23.4 Total bilirubin trending downward from 14.9-13.4 Exam Vital Signs Temp Pulse Resp BP Pulse Ox O2 Del Method O2 Flow Rate 98.2 F 72 20 105/72 98 Room Air 3 09/06/24 16:00 09/06/24 16:00 09/06/24 16:00 09/06/24 16:00 09/06/24 16:00 09/06/24 16:00 09/01/24 17:53 Objective Labs 09/06/24 04:55 09/06/24 04:55 Labs: Laboratory Results - last 24 hr 09/06/24 04:55 WBC 14.3 H RBC 2.83 L Hgb 7.7 L Hct 23.4 L MCV 83 MCH 27.2 MCHC 32.9 RDW Std Deviation 65.1 H Plt Count 51 L Neut % (Auto) 87 H Lymph % (Auto) 6 L [place] % (Auto) 7 Eos % (Auto) 0 Baso % (Auto) 0 Neut # (Auto) 12.4 H Lymph # (Auto) 0.8 L [place] # (Auto) 1.0 H Eos # (Auto) 0.0 Baso # (Auto) 0.0 Immature Gran # (Auto) 0.10 H Absolute Nucleated RBC 0.00 Immature Gran % 1 H Nucleated RBC % 0 Sodium 139 Potassium 4.1 Chloride 109 H Carbon Dioxide 21.8 Anion Gap 8 BUN 13 Creatinine 0.6 Estim Creat Clear Calc 162.2 eGFR > 60 BUN/Creatinine Ratio 22 H Glucose 131 H Calculated Osmolality 279 Calcium 7.9 L Corrected Calcium 9.3 Total Bilirubin 13.4 H D AST 61 H ALT 60 H Alkaline Phosphatase 69 Total Protein 5.5 L Albumin 2.3 L Globulin 3.2 Albumin/Globulin Ratio 0.7 L Misc Test Result Platelets confirmed Impressions Impression: # Acute upper GI bleed secondary to esophageal variceal bleeding requiring band ligation # acutely decompensated liver disease secondary to previous consumption of alcohol Continue current management ABG Interpretation ABG results: 08/31/24 08/31/24 00:36 16:50 ABG pH 7.45 ABG pCO2 19 L* ABG pO2 149 H ABG HCO3 14 L ABG O2 Saturation 101 H ABG Base Excess -9 L VBG pH 7.35 VBG pCO2 24 L VBG pO2 41 VBG Base Excess -12 L Assessment & Plan A&P Narrative # Acute decompensation of the chronic liver disease secondary to alcohol MELD score of 32 Patient has stopped drinking since his last admission Continue to monitor LFTs. 1 L p.o. fluid restriction in 24 hours 2 g sodium diet # Possibly SBP broad-spectrum IV antibiotics # Perigastric and esophageal varices Repeat upper endoscopy prior to discharge for further band ligation of the esophageal varices Will follow the patient Time Spent With Patient Time: Total time spent is greater than 50% in coordination of care (as documented) at patient's floor/unit and/or counseling patient:
[2024-09-07] VITALS (12 sets, daily range): BP systolic 110–127; BP diastolic 69–82; PULSE 67–88; RESP 12–23; TEMP 36.3–37.1; O2SAT 97–100; BMI 30.7
[2024-09-07] MEDS: LACTULOSE SYRUP 20 GM/30 ML UDC 30 GM PO ×3 (05:16→21:02)
[2024-09-07] MEDS: PIPER/TAZO INJ 3.375 GM in SODIUM CHLORIDE 0.9% (P) 50 ML IV (05:16)
[2024-09-07 06:35] LABS: Basophils % (Auto) 0 % (0-2.5); Eosinophils % (Auto) 0 % (0-10); Hematocrit 24.3 % (41.0-53.0); Immature Granulocytes % (Auto) 1 % (0-0); Immature Granulocytes Auto 0.09 Thou/mm3 (0.00-0.00); Lymphocytes # (Auto) 0.9 Thou/mm3 (1.0-4.8); Lymphocytes % (Auto) 6 % (10-50); Mean Corpuscular HGB Conc 33.3 g/dl (31.0-37.0); Mean Corpuscular Hemoglobin 27.4 pg (25.0-35.0); Mean Corpuscular Volume 82 fL (80-100); Monocytes % (Auto) 7 % (0-12); Neutrophils # (Auto) 12.1 Thou/mm3 (1.8-7.7); Neutrophils % (Auto) 86 % (37-80); Nucleated Red Blood Cell % 0 /100 WBC (0); Platelet Count 48 Thou/mm3 (140-440); Red Blood Count 2.96 Miln/mm3 (4.50-5.90)
[2024-09-07 06:46] LABS: Hemoglobin 8.1 g/dL (13.5-16.0)
[2024-09-07 06:59] LABS: Slide Review Platelets confirmed
[2024-09-07 07:18] LABS: Alanine Aminotransferase 64 U/L (10-49); Albumin, Serum 2.4 gm/dL (3.5-5.0); Albumin/Globulin Ratio 0.8 (1.2-2.2); Alkaline Phosphatase 66 U/L (46-116); Anion Gap 6 (7-16); Aspartate Amino Transferase 73 U/L (0-34); BUN/Creatinine Ratio 21 Ratio (12-20); Blood Urea Nitrogen 17 mg/dL (9-23); Calcium 7.9 mg/dL (8.3-10.6); Calcium (Corrected) 9.2 mg/dL (8.5-10.1); Carbon Dioxide 22.8 mMol/L (20.0-31.0); Chloride 108 mMol/L (98-107); Creatinine (Component) 0.8 mg/dL (0.6-1.3); Estimated Creatinine Clearance 121.7 mL/min (>60); Globulin 3.2 gm/dL (2.3-3.5); Glucose 101 mg/dL (74-106); Osmolality,Calculated 275 (275-295); Potassium 4.3 mMol/L (3.4-5.1); Sodium 137 mMol/L (136-145); Total Protein 5.6 gm/dL (5.7-8.2); eGFR > 60 See Note
[2024-09-07] MEDS: PANTOPRAZOLE INJ 40 MG VIAL IVP ×2 (08:58→20:32)
[2024-09-07] MEDS: PROPRANOLOL 10 MG TABLET PO ×2 (08:59→20:31)
[2024-09-07] MEDS: THIAMINE 100 MG TABLET PO (09:00)
[2024-09-07] MEDS: FOLIC ACID 1 MG TABLET PO (09:00)
[2024-09-07] MEDS: FUROSEMIDE INJ 10 MG/ML VIAL 2 ML 40 MG IVP (09:04)
[2024-09-07] MEDS: SODIUM BICARBONATE 650 MG TABLET 325 MG PO ×2 (09:05→20:31)
[2024-09-07] MEDS: SPIRONOLACTONE 25 MG TABLET PO ×2 (09:05→20:32)
[2024-09-07] MEDS: predniSONE 20 MG TABLET 30 MG PO (09:06)
--- NOTE | 2024-09-07 14:58 | PD.RESPRO ---
Documentation for date of: 09/07/24 Subjective Subjective Interval history: Patient with 3.9 mg long output with overall -2.6 total fluid balance in the last 24 hours swelling bowel movement. Physical exam significant for +3 pitting edema of lower extremities up to calf, will increase Lasix to 40 IV twice daily. Exam Vital Signs Temp Pulse Resp BP Pulse Ox O2 Del Method O2 Flow Rate 98.7 F 74 16 110/73 100 Room Air 3 09/07/24 12:00 09/07/24 12:09/07/24 12:09/07/24 12:09/07/24 12:09/07/24 12:09/06/24 20:00 Narrative Exam Physical exam GENERAL: Patient is awake, answering questions appropriately, appears stated age, jaundiced HEENT: PERRLA, EOMI, oropharynx clear. Scleral icterus present HEART: Sinus tachycardia with regular rhythm, normal S1/S2, no m/r/g LUNGS: CTAB. No crackles, rales, rhonchi or wheezing ABDOMEN: Soft, marked improvement in distention. Nontender on palpation. Past paracentesis site bandaged EXTREMITIES: Bilateral +3 lower extremity pitting edema up to calfs, no pain elicited with dorsiflexion or plantarflexion NEUROLOGICAL: Alert oriented x 3, no focal neurologic deficits, moves extremities x 4 Objective Labs 09/08/24 05:31 09/08/24 05:31 Labs: Laboratory Results - last 24 hr 09/05/24 09/07/24 08:01 06:01 WBC 14.0 H RBC 2.96 L Hgb 8.1 L Hct 24.3 L MCV 82 MCH 27.4 MCHC 33.3 RDW Std Deviation 63.0 H Plt Count 48 L Neut % (Auto) 86 H Lymph % (Auto) 6 L [place] % (Auto) 7 Eos % (Auto) 0 Baso % (Auto) 0 Neut # (Auto) 12.1 H Lymph # (Auto) 0.9 L [place] # (Auto) 1.0 H Eos # (Auto) 0.0 Baso # (Auto) 0.0 Immature Gran # (Auto) 0.09 H Absolute Nucleated RBC 0.00 Immature Gran % 1 H Nucleated RBC % 0 Sodium 137 Potassium 4.3 Chloride 108 H Carbon Dioxide 22.8 Anion Gap 6 L BUN 17 Creatinine 0.8 Estim Creat Clear Calc 121.7 eGFR > 60 BUN/Creatinine Ratio 21 H Glucose 101 Calculated Osmolality 275 Calcium 7.9 L Corrected Calcium 9.2 Total Bilirubin 14.0 H D AST 73 H ALT 64 H Alkaline Phosphatase 66 Total Protein 5.6 L Albumin 2.4 L Globulin 3.2 Albumin/Globulin Ratio 0.8 L Misc Test Result Platelets confirmed Blood Bank Comment PLATP Ready ABG Interpretation ABG results: 08/31/24 08/31/24 00:36 16:50 ABG pH 7.45 ABG pCO2 19 L* ABG pO2 149 H ABG HCO3 14 L ABG O2 Saturation 101 H ABG Base Excess -9 L VBG pH 7.35 VBG pCO2 24 L VBG pO2 41 VBG Base Excess -12 L Quality Measures Quality Measures VTE prophylaxis (SCDs) Assessment & Plan Assessment Current Active Medications: Generic Name Dose Route Start Last Admin Trade Name Freq PRN Reason Stop Dose Admin Acetaminophen 650 mg 08/30/24 22:27 Acetaminophen 325 Mg Tablet PO 09/29/24 22:26 Q6H PRN Fever >101.5 Acetaminophen 650 mg 08/30/24 22:31 Acetaminophen Supp 650 Mg Supp NE 09/29/24 22:30 Q6H PRN PAIN SCALE 1-3 (mild Dextrose 25 ml 08/31/24 02:19 Dextrose 50%-Water Inj 50 Ml Syringe IV 09/30/24 02:18 Q15MIN PRN BG 50-70 responsive npo pt Dextrose 50 ml 08/31/24 02:19 Dextrose 50%-Water Inj 50 Ml Syringe IV 09/30/24 02:18 Q15MIN PRN BG <50 OR BG <70 & pt unresponsive Folic Acid 1 mg 08/31/24 09:00 09/07/24 09:00 Folic Acid 1 Mg Tablet PO 09/30/24 08:59 1 mg QDAY CATHY Administration Furosemide 40 mg 09/08/24 09:00 Furosemide Inj 10 Mg/Ml 4ml Vial IVP 10/05/24 08:59 QDAY CATHY Glucagon 1 mg 08/31/24 02:19 Glucagon Inj 1 Mg Vial IM Q15MIN PRN BG <70, and no IV access Lactulose 30 gm 09/01/24 14:00 09/07/24 05:16 Lactulose Syrup 20 Gm/30 Ml Udc PO 10/01/24 13:59 30 gm TID CATHY Administration Protocol Midodrine 5 mg 08/31/24 12:01 Midodrine 5 Mg Tablet PO 09/30/24 13:59 TID PRN systolic bp <90 Nicotine 14 mg 08/31/24 09:00 09/07/24 09:07 Nicotine Patch 14 Mg/24 Hr Patch.Td24 TOP 09/30/24 08:59 Not Given QDAY CATHY Ondansetron HCl 4 mg 08/30/24 22:31 Ondansetron Inj 2 Mg/Ml Inj 2 Ml IV 09/29/24 22:30 Q6H PRN NAUSEA OR VOMITING Protocol Pantoprazole Sodium 40 mg 08/30/24 22:35 09/07/24 08:58 Pantoprazole Inj 40 Mg Vial IVP 09/29/24 22:34 40 mg Q12HR CATHY Administration Prednisone 30 mg 09/07/24 09:00 09/07/24 09:06 Prednisone 20 Mg Tablet PO 09/14/24 08:59 30 mg QDAY CATHY Administration Propranolol HCl 10 mg 09/05/24 09:45 09/07/24 08:59 Propranolol 10 Mg Tablet PO 10/05/24 09:44 10 mg BID CATHY Administration Sennosides 1 tab 08/30/24 22:31 Senna Tablet PO 09/29/24 22:30 QDAY PRN constipation Protocol Sodium Bicarbonate 325 mg 09/04/24 21:00 09/07/24 09:05 Sodium Bicarbonate 650 Mg Tablet PO 10/04/24 20:59 325 mg BID CATHY Administration Spironolactone 25 mg 09/04/24 21:00 09/07/24 09:05 Spironolactone 25 Mg Tablet PO 10/04/24 20:59 25 mg BID CATHY Administration Thiamine HCl 100 mg 08/31/24 09:00 09/07/24 09:00 Thiamine 100 Mg Tablet PO 09/30/24 08:59 100 mg QDAY CATHY Administration Plan 44-year-old male with past medical history of alcohol abuse, alcoholic cirrhosis status post variceal banding from GI bleed performed on 08/07/24 showing grade 1 esophageal varices and colonoscopy performed on 08/08/2024 showing hemorrhoids presented with abdominal discomfort, possible blood in stool, significant lower extremity edema with difficult urination from couple of days. Patient is admitted for sepsis likely secondary to SBP with underlying history of alcohol induced liver cirrhosis and anasarca. #Sepsis likely secondary to SBP #Alcohol induced decompensated liver cirrhosis and ascites with anasarca #Leukocytosis #Hyperbilirubinemia #Coagulopathy #Thrombocytopenia #Hypoalbuminemia #Hyperammonemia Patient presented from PCP follow-up with increased abdominal girth, decreased urination, abdominal pain and bilateral lower extremity edema Patient has quit drinking alcohol a month ago and is currently AOx3. Labs were significant for leukocytosis white count 16, normocytic anemia hemoglobin 7.6 and elevated LFTs with elevated T. bili and direct bili. MDF score 42.3 point Poor Prognosis Child Hale score C 11 points U/S guided paracentesis not completed as there is minimal ascites noted on imaging Patient remains +3 pitting edema on lower extremity on b/l thighs Net negative of 5 L since admission; however, not fairly accurate as the patient has been drinking outside hospital beverages Plan: X 1 IV albumin 25 g Continue propranolol 10 mg p.o. twice daily Continue IV antibiotics Zosyn 3.375 g Q6 hourly, [08/30? Continue Spironolactone 25 mg bid Continue IV Lasix 40 mg daily Continue lactulose 30 mg 3 times daily as needed Tapering prednisone down to 30 mg daily for 1 week, will discharge with prednisone taper GI consulted, appreciate recommendations Replete electrolytes as necessary Bleeding precautions Avoiding hepatotoxic agents #Non-anion gap metabolic acidosis, resolved #Respiratory alkalosis, resolved #Lactic acidosis, improved #Electrolyte abnormalities Chemistry panel was significant for sodium 132 and chloride 108 and non-anion gap metabolic acidosis with bicarb 13.8 and anion gap 10. Kidney function showed BUN 17 and creatinine 1.1 with baseline creatinine 0.8 from 08/26/2024. Lactic acid was elevated at 5.9--> 3.2 ABGs showed pH 7.45, pCO2 19, pO2 149, bicarb 14.7 on CHEM panel FiO2 21% Most likely Primary Respiratory Alkalosis, Chronic, with: Secondary Metabolic Acidosis and Additional Non-Gap Metabolic Acidosis. NAGMA could be related to RTA 2 ampoule of bicarb given by admitting team Based on bicarb, expected pCO2 is 29?2; however, pCO2 on ABG shows 19 Delta delta is -8.5 which equates to mixed non-anion gap metabolic acidosis along with respiratory alkalosis Patient's respiratory alkalosis is likely secondary to increased work of breathing Non-anion gap metabolic acidosis could be secondary to an RTA; however, more likely secondary to cirrhosis and/or GI loss from bleed 21.0?mmol/L Urine anion gap positive Plan: Continue sodium bicarb tablets Replete as needed Monitor with morning labs Will consider consulting nephrology for possible RTA #Anemia of Chronic Deficiency #History of GI bleed #History of gastric esophageal versus s/p banding on 08/07/24 #History of hemorrhoids per colonoscopy on 08/08/24 Labs were significant for hemoglobin 7.6 to 7.8 History of IR embolization and massive blood transfusion protocol was given during previous admission 08/31/2024: Hemoglobin did downtrend from 7.8-7.0 09/01/2024: Hemoglobin uptrending from 7.0-7.4 after 1 unit PRBC Transfused a total of 2u pRBC Iron panel: iron 34, TIBC 191, Iron saturation 17% and ferritin 37 (low normal) EGD shows Grade 2 esophageal varices, completely eradicated and banded. Gastritis with characteristic erythema, normal second portion of duodenum. Plan: PUD diet Hospital Management: Lines: PIV Diet: PUD, bland Bowel: Lactulose GI prophylaxis: Protonix 40 mg IV daily twice daily DVT prophylaxis: SCDs Disposition: Pending improvement in peripheral edema Code: Full This patient care was discussed with my attending Dr. Martínez Luna MD PGY-2 Disclaimer: Minor errors in security officers and guards may be present since this note was dictated by speech recognition software. Attending Provider Attestation/Addendum Dk, Netta Soliz DO, attest that I was physically present for the cisneros portions of the service and evaluated the patient with the resident and I reviewed and discussed the case with the resident and agree with the resident's findings and plans of care as documented above Patient seen and evaluated this AM. He continues to have 3+ pitting edema in b/l le. Will continue with aggressive IV diuresis and increase lasix dose to twice a day. Emphasized to patient to limit PO hydration and salt intake as he appears to have a lot of food from home.
--- NOTE | 2024-09-07 18:27 | PD.IMPROG ---
Documentation for date of: 09/07/24 Subjective Subjective Interval history: Patient evaluated Hemoglobin hematocrit 8.1 and 24.3 BUN/creatinine 17 and 0.8 Total bilirubin 14.0 AST ALT 73 and 64 alk phos 66 Alert and oriented Exam Vital Signs Temp Pulse Resp BP Pulse Ox O2 Del Method O2 Flow Rate 98.8 F 80 18 115/75 99 Room Air 3 09/07/24 16:00 09/07/24 16:00 09/07/24 16:00 09/07/24 16:00 09/07/24 16:00 09/07/24 16:00 09/06/24 20:00 Objective Labs 09/07/24 06:01 09/07/24 06:01 Labs: Laboratory Results - last 24 hr 09/05/24 09/07/24 08:01 06:01 WBC 14.0 H RBC 2.96 L Hgb 8.1 L Hct 24.3 L MCV 82 MCH 27.4 MCHC 33.3 RDW Std Deviation 63.0 H Plt Count 48 L Neut % (Auto) 86 H Lymph % (Auto) 6 L [place] % (Auto) 7 Eos % (Auto) 0 Baso % (Auto) 0 Neut # (Auto) 12.1 H Lymph # (Auto) 0.9 L [place] # (Auto) 1.0 H Eos # (Auto) 0.0 Baso # (Auto) 0.0 Immature Gran # (Auto) 0.09 H Absolute Nucleated RBC 0.00 Immature Gran % 1 H Nucleated RBC % 0 Sodium 137 Potassium 4.3 Chloride 108 H Carbon Dioxide 22.8 Anion Gap 6 L BUN 17 Creatinine 0.8 Estim Creat Clear Calc 121.7 eGFR > 60 BUN/Creatinine Ratio 21 H Glucose 101 Calculated Osmolality 275 Calcium 7.9 L Corrected Calcium 9.2 Total Bilirubin 14.0 H D AST 73 H ALT 64 H Alkaline Phosphatase 66 Total Protein 5.6 L Albumin 2.4 L Globulin 3.2 Albumin/Globulin Ratio 0.8 L Misc Test Result Platelets confirmed Blood Bank Comment PLATP Ready Impressions Impression: # Upper GI bleed status post band ligation of the esophageal varices # Gastric mucosal bleeding # Acutely decompensated chronic liver disease Continue current management ABG Interpretation ABG results: 08/31/24 08/31/24 00:36 16:50 ABG pH 7.45 ABG pCO2 19 L* ABG pO2 149 H ABG HCO3 14 L ABG O2 Saturation 101 H ABG Base Excess -9 L VBG pH 7.35 VBG pCO2 24 L VBG pO2 41 VBG Base Excess -12 L Assessment & Plan A&P Narrative # Acute decompensation of the chronic liver disease secondary to alcohol MELD score of 32 Patient has stopped drinking since his last admission Continue to monitor LFTs. 1 L p.o. fluid restriction in 24 hours 2 g sodium diet # Possibly SBP broad-spectrum IV antibiotics # Perigastric and esophageal varices Repeat upper endoscopy prior to discharge for further band ligation of the esophageal varices Will follow the patient Time Spent With Patient Time: Total time spent is greater than 50% in coordination of care (as documented) at patient's floor/unit and/or counseling patient:
[2024-09-07] MEDS: FUROSEMIDE INJ 10 MG/ML 4ML VIAL 40 MG IVP (18:35)
[2024-09-08] VITALS (12 sets, daily range): BP systolic 114–128; BP diastolic 70–78; PULSE 73–92; RESP 15–20; TEMP 36.7–37.4; O2SAT 99
[2024-09-08] MEDS: FUROSEMIDE INJ 10 MG/ML 4ML VIAL 40 MG IVP ×2 (05:29→18:23)
[2024-09-08] MEDS: LACTULOSE SYRUP 20 GM/30 ML UDC 30 GM PO ×3 (05:29→21:28)
[2024-09-08 05:57] LABS: Basophils % (Auto) 0 % (0-2.5); Eosinophils % (Auto) 0 % (0-10); Hematocrit 25.3 % (41.0-53.0); Immature Granulocytes % (Auto) 1 % (0-0); Immature Granulocytes Auto 0.09 Thou/mm3 (0.00-0.00); Lymphocytes # (Auto) 0.7 Thou/mm3 (1.0-4.8); Lymphocytes % (Auto) 5 % (10-50); Mean Corpuscular HGB Conc 32.4 g/dl (31.0-37.0); Mean Corpuscular Hemoglobin 26.7 pg (25.0-35.0); Mean Corpuscular Volume 82 fL (80-100); Monocytes % (Auto) 7 % (0-12); Neutrophils # (Auto) 12.1 Thou/mm3 (1.8-7.7); Neutrophils % (Auto) 87 % (37-80); Nucleated Red Blood Cell % 0 /100 WBC (0); Platelet Count 50 Thou/mm3 (140-440); RDW Standard Deviation 64.4 fL (35.1-43.9); Red Blood Count 3.07 Miln/mm3 (4.50-5.90); White Blood Count 13.9 Thou/mm3 (3.8-10.6)
[2024-09-08 06:16] LABS: Hemoglobin 8.2 g/dL (13.5-16.0)
[2024-09-08 06:24] LABS: Slide Review Platelets confirmed
[2024-09-08 06:31] LABS: Alanine Aminotransferase 73 U/L (10-49); Albumin, Serum 2.5 gm/dL (3.5-5.0); Albumin/Globulin Ratio 0.8 (1.2-2.2); Alkaline Phosphatase 72 U/L (46-116); Anion Gap 7 (7-16); Aspartate Amino Transferase 81 U/L (0-34); BUN/Creatinine Ratio 27 Ratio (12-20); Blood Urea Nitrogen 19 mg/dL (9-23); Calcium 7.8 mg/dL (8.3-10.6); Chloride 108 mMol/L (98-107); Creatinine (Component) 0.7 mg/dL (0.6-1.3); Globulin 3.3 gm/dL (2.3-3.5); Glucose 106 mg/dL (74-106); Osmolality,Calculated 277 (275-295); Potassium 3.8 mMol/L (3.4-5.1); Sodium 138 mMol/L (136-145); Total Protein 5.8 gm/dL (5.7-8.2); eGFR > 60 See Note
[2024-09-08] MEDS: ALBUMIN HUMAN 25% IVPB 12.5 GM/50 ML BTL IV (08:57)
[2024-09-08] MEDS: FOLIC ACID 1 MG TABLET PO (08:58)
[2024-09-08] MEDS: PANTOPRAZOLE INJ 40 MG VIAL IVP ×2 (08:58→20:20)
[2024-09-08] MEDS: THIAMINE 100 MG TABLET PO (08:59)
[2024-09-08] MEDS: predniSONE 20 MG TABLET 30 MG PO (08:59)
[2024-09-08] MEDS: SODIUM BICARBONATE 650 MG TABLET 325 MG PO ×2 (09:00→20:21)
[2024-09-08] MEDS: SPIRONOLACTONE 25 MG TABLET PO ×2 (09:01→20:20)
[2024-09-08] MEDS: PROPRANOLOL 10 MG TABLET PO ×2 (09:02→20:21)
--- NOTE | 2024-09-08 15:24 | PD.RESPRO ---
Documentation for date of: 09/08/24 Subjective Subjective Interval history: No overnight major events, patient is hemodynamically stable, A and O x 3. Labs are significant for downtrending white blood cells, below normal albumin and normal kidney function, but slightly uptrending liver function tests. During last 24 hours patient has had -5.2 L of fluid output. Subjectively patient bilateral lower extremity edema has improved significantly. Patient was given 12.5 g of albumin x 1 and will continue aggressive diuretic, if edema improves better, patient may be discharged tomorrow to continue treatment in outpatient settings. Exam Vital Signs Temp Pulse Resp BP Pulse Ox O2 Del Method O2 Flow Rate 98.2 F 74 18 124/78 99 Room Air 3 09/08/24 12:00 09/08/24 12:00 09/08/24 12:00 09/08/24 12:00 09/08/24 12:00 09/08/24 12:00 09/06/24 20:00 Narrative Exam Physical exam GENERAL: Patient is awake, answering questions appropriately, appears stated age, jaundiced HEENT: PERRLA, EOMI, oropharynx clear. Scleral icterus present HEART: Sinus tachycardia with regular rhythm, normal S1/S2, no m/r/g LUNGS: CTAB. No crackles, rales, rhonchi or wheezing ABDOMEN: Soft, marked improvement in distention. Nontender on palpation. Past paracentesis site bandaged EXTREMITIES: Bilateral +1?2 lower extremity pitting edema up to calfs, no pain elicited with dorsiflexion or plantarflexion NEUROLOGICAL: Alert oriented x 3, no focal neurologic deficits, moves extremities x 4 Objective Labs 09/08/24 05:31 09/08/24 05:31 Labs: Laboratory Results - last 24 hr 09/08/24 05:31 WBC 13.9 H RBC 3.07 L Hgb 8.2 L Hct 25.3 L MCV 82 MCH 26.7 MCHC 32.4 RDW Std Deviation 64.4 H Plt Count 50 L Neut % (Auto) 87 H Lymph % (Auto) 5 L [place] % (Auto) 7 Eos % (Auto) 0 Baso % (Auto) 0 Neut # (Auto) 12.1 H Lymph # (Auto) 0.7 L [place] # (Auto) 1.0 H Eos # (Auto) 0.0 Baso # (Auto) 0.0 Immature Gran # (Auto) 0.09 H Absolute Nucleated RBC 0.00 Immature Gran % 1 H Nucleated RBC % 0 Sodium 138 Potassium 3.8 D Chloride 108 H Carbon Dioxide 23.0 Anion Gap 7 BUN 19 Creatinine 0.7 Estim Creat Clear Calc 139.0 eGFR > 60 BUN/Creatinine Ratio 27 H Glucose 106 Calculated Osmolality 277 Calcium 7.8 L Corrected Calcium 9.0 Total Bilirubin 15.0 H D AST 81 H ALT 73 H Alkaline Phosphatase 72 Total Protein 5.8 Albumin 2.5 L Globulin 3.3 Albumin/Globulin Ratio 0.8 L Misc Test Result Platelets confirmed ABG Interpretation ABG results: 08/31/24 08/31/24 00:36 16:50 ABG pH 7.45 ABG pCO2 19 L* ABG pO2 149 H ABG HCO3 14 L ABG O2 Saturation 101 H ABG Base Excess -9 L VBG pH 7.35 VBG pCO2 24 L VBG pO2 41 VBG Base Excess -12 L Quality Measures Quality Measures VTE prophylaxis (SCDs) Assessment & Plan Assessment Current Active Medications: Generic Name Dose Route Start Last Admin Trade Name Freq PRN Reason Stop Dose Admin Acetaminophen 650 mg 08/30/24 22:27 Acetaminophen 325 Mg Tablet PO 09/29/24 22:26 Q6H PRN Fever >101.5 Acetaminophen 650 mg 08/30/24 22:31 Acetaminophen Supp 650 Mg Supp MD 09/29/24 22:30 Q6H PRN PAIN SCALE 1-3 (mild Dextrose 25 ml 08/31/24 02:19 Dextrose 50%-Water Inj 50 Ml Syringe IV 09/30/24 02:18 Q15MIN PRN BG 50-70 responsive npo pt Dextrose 50 ml 08/31/24 02:19 Dextrose 50%-Water Inj 50 Ml Syringe IV 09/30/24 02:18 Q15MIN PRN BG <50 OR BG <70 & pt unresponsive Folic Acid 1 mg 08/31/24 09:00 09/08/24 08:58 Folic Acid 1 Mg Tablet PO 09/30/24 08:59 1 mg QDAY CATHY Administration Furosemide 40 mg 09/07/24 18:00 09/08/24 05:29 Furosemide Inj 10 Mg/Ml 4ml Vial IVP 10/07/24 17:59 40 mg BIDD CATHY Administration Glucagon 1 mg 08/31/24 02:19 Glucagon Inj 1 Mg Vial IM Q15MIN PRN BG <70, and no IV access Lactulose 30 gm 09/01/24 14:00 09/08/24 13:48 Lactulose Syrup 20 Gm/30 Ml Udc PO 10/01/24 13:59 30 gm TID CATHY Administration Protocol Midodrine 5 mg 08/31/24 12:01 Midodrine 5 Mg Tablet PO 09/30/24 13:59 TID PRN systolic bp <90 Nicotine 14 mg 08/31/24 09:00 09/08/24 09:02 Nicotine Patch 14 Mg/24 Hr Patch.Td24 TOP 09/30/24 08:59 Not Given QDAY CATHY Ondansetron HCl 4 mg 08/30/24 22:31 Ondansetron Inj 2 Mg/Ml Inj 2 Ml IV 09/29/24 22:30 Q6H PRN NAUSEA OR VOMITING Protocol Pantoprazole Sodium 40 mg 08/30/24 22:35 09/08/24 08:58 Pantoprazole Inj 40 Mg Vial IVP 09/29/24 22:34 40 mg Q12HR CATHY Administration Prednisone 30 mg 09/07/24 09:00 09/08/24 08:59 Prednisone 20 Mg Tablet PO 09/14/24 08:59 30 mg QDAY CATHY Administration Propranolol HCl 10 mg 09/05/24 09:45 09/08/24 09:02 Propranolol 10 Mg Tablet PO 10/05/24 09:44 10 mg BID CATHY Administration Sennosides 1 tab 08/30/24 22:31 Senna Tablet PO 09/29/24 22:30 QDAY PRN constipation Protocol Sodium Bicarbonate 325 mg 09/04/24 21:00 09/08/24 09:00 Sodium Bicarbonate 650 Mg Tablet PO 10/04/24 20:59 325 mg BID CATHY Administration Spironolactone 25 mg 09/04/24 21:00 09/08/24 09:01 Spironolactone 25 Mg Tablet PO 10/04/24 20:59 25 mg BID CATHY Administration Thiamine HCl 100 mg 08/31/24 09:00 09/08/24 08:59 Thiamine 100 Mg Tablet PO 09/30/24 08:59 100 mg QDAY CATHY Administration Plan 44-year-old male with past medical history of alcohol abuse, alcoholic cirrhosis status post variceal banding from GI bleed performed on 08/07/24 showing grade 1 esophageal varices and colonoscopy performed on 08/08/2024 showing hemorrhoids presented with abdominal discomfort, possible blood in stool, significant lower extremity edema with difficult urination from couple of days. Patient is admitted for sepsis likely secondary to SBP with underlying history of alcohol induced liver cirrhosis and anasarca. #Sepsis likely secondary to SBP #Alcohol induced decompensated liver cirrhosis and ascites with anasarca #Leukocytosis #Hyperbilirubinemia #Coagulopathy #Thrombocytopenia #Hypoalbuminemia #Hyperammonemia Patient presented from PCP follow-up with increased abdominal girth, decreased urination, abdominal pain and bilateral lower extremity edema Patient has quit drinking alcohol a month ago and is currently AOx3. Labs were significant for leukocytosis white count 16, normocytic anemia hemoglobin 7.6 and elevated LFTs with elevated T. bili and direct bili. MDF score 42.3 point Poor Prognosis Child Hale score C 11 points U/S guided paracentesis not completed as there is minimal ascites noted on imaging Patient remains 1?2 pitting edema on lower extremity on b/l thighs Net negative of 11.8 L since admission; however, not fairly accurate as the patient has been drinking outside hospital beverages Plan: X 1 IV albumin 25 g Continue propranolol 10 mg p.o. twice daily Continue IV antibiotics Zosyn 3.375 g Q6 hourly, [08/30? Continue Spironolactone 25 mg bid Continue IV Lasix 40 mg daily Continue lactulose 30 mg 3 times daily as needed Tapering prednisone down to 30 mg daily for 1 week, will discharge with prednisone taper GI consulted, appreciate recommendations Replete electrolytes as necessary Bleeding precautions Avoiding hepatotoxic agents #Non-anion gap metabolic acidosis, resolved #Respiratory alkalosis, resolved #Lactic acidosis, improved #Electrolyte abnormalities Chemistry panel was significant for sodium 132 and chloride 108 and non-anion gap metabolic acidosis with bicarb 13.8 and anion gap 10. Kidney function showed BUN 17 and creatinine 1.1 with baseline creatinine 0.8 from 08/26/2024. Lactic acid was elevated at 5.9--> 3.2 ABGs showed pH 7.45, pCO2 19, pO2 149, bicarb 14.7 on CHEM panel FiO2 21% Most likely Primary Respiratory Alkalosis, Chronic, with: Secondary Metabolic Acidosis and Additional Non-Gap Metabolic Acidosis. NAGMA could be related to RTA 2 ampoule of bicarb given by admitting team Based on bicarb, expected pCO2 is 29?2; however, pCO2 on ABG shows 19 Delta delta is -8.5 which equates to mixed non-anion gap metabolic acidosis along with respiratory alkalosis Patient's respiratory alkalosis is likely secondary to increased work of breathing Non-anion gap metabolic acidosis could be secondary to an RTA; however, more likely secondary to cirrhosis and/or GI loss from bleed 21.0?mmol/L Urine anion gap positive Plan: Continue sodium bicarb tablets Replete as needed Monitor with morning labs Will consider consulting nephrology for possible RTA #Anemia of Chronic Deficiency #History of GI bleed #History of gastric esophageal versus s/p banding on 08/07/24 #History of hemorrhoids per colonoscopy on 08/08/24 Labs were significant for hemoglobin 7.6 to 7.8 History of IR embolization and massive blood transfusion protocol was given during previous admission 08/31/2024: Hemoglobin did downtrend from 7.8-7.0 09/01/2024: Hemoglobin uptrending from 7.0-7.4 after 1 unit PRBC Transfused a total of 2u pRBC Iron panel: iron 34, TIBC 191, Iron saturation 17% and ferritin 37 (low normal) EGD shows Grade 2 esophageal varices, completely eradicated and banded. Gastritis with characteristic erythema, normal second portion of duodenum. Plan: PUD diet Hospital Management: Lines: PIV Diet: PUD, bland Bowel: Lactulose GI prophylaxis: Protonix 40 mg IV daily twice daily DVT prophylaxis: SCDs Disposition: Pending improvement in peripheral edema Code: Full IAlex MD PGY 3 reviewed and discussed the case with attending physician Dr. Soliz Attending Provider Attestation/Addendum Netta Root, DO, attest that I was physically present for the cisneros portions of the service and evaluated the patient with the resident and I reviewed and discussed the case with the resident and agree with the resident's findings and plans of care as documented above Patient seen and evaluated this AM. He continues to have 2+ pitting edema with some wrinkling, improved from yesterday. Will continue with aggressive IV diuresis. Patient otherwise has no active complaints.
--- NOTE | 2024-09-08 18:59 | ESPR_ITS ---
Documentation for date of: 09/08/24 Subjective Subjective Interval history: Patient evaluated WBC count of 13.9 Hemoglobin 8.2 and hematocrit 25.3 Total bilirubin 15.0 AST ALT 81 and 73 and alk phos of 72 Exam Vital Signs Temp Pulse Resp BP Pulse Ox O2 Del Method O2 Flow Rate 99.4 F 92 20 114/75 99 Room Air 3 09/08/24 16:00 09/08/24 18:23 09/08/24 16:00 09/08/24 18:23 09/08/24 16:00 09/08/24 16:00 09/06/24 20:00 Constitutional Comments: Alert oriented Routine Respiratory Exam Comments: Normal to auscultation Routine Abdominal Exam Comments: Positive for ascites Objective Labs 09/08/24 05:31 09/08/24 05:31 Labs: Laboratory Results - last 24 hr 09/08/24 05:31 WBC 13.9 H RBC 3.07 L Hgb 8.2 L Hct 25.3 L MCV 82 MCH 26.7 MCHC 32.4 RDW Std Deviation 64.4 H Plt Count 50 L Neut % (Auto) 87 H Lymph % (Auto) 5 L [place] % (Auto) 7 Eos % (Auto) 0 Baso % (Auto) 0 Neut # (Auto) 12.1 H Lymph # (Auto) 0.7 L [place] # (Auto) 1.0 H Eos # (Auto) 0.0 Baso # (Auto) 0.0 Immature Gran # (Auto) 0.09 H Absolute Nucleated RBC 0.00 Immature Gran % 1 H Nucleated RBC % 0 Sodium 138 Potassium 3.8 D Chloride 108 H Carbon Dioxide 23.0 Anion Gap 7 BUN 19 Creatinine 0.7 Estim Creat Clear Calc 139.0 eGFR > 60 BUN/Creatinine Ratio 27 H Glucose 106 Calculated Osmolality 277 Calcium 7.8 L Corrected Calcium 9.0 Total Bilirubin 15.0 H D AST 81 H ALT 73 H Alkaline Phosphatase 72 Total Protein 5.8 Albumin 2.5 L Globulin 3.3 Albumin/Globulin Ratio 0.8 L Misc Test Result Platelets confirmed Impressions Impression: # Acute decompensation of the chronic liver disease # Thrombocytopenia # upper GI bleed secondary to esophageal varices requiring band ligation Continue current management Will speak with case management about the hospital is available to me for the patient to be evaluated for a liver transplant in the future ABG Interpretation ABG results: 08/31/24 08/31/24 00:36 16:50 ABG pH 7.45 ABG pCO2 19 L* ABG pO2 149 H ABG HCO3 14 L ABG O2 Saturation 101 H ABG Base Excess -9 L VBG pH 7.35 VBG pCO2 24 L VBG pO2 41 VBG Base Excess -12 L Assessment & Plan A&P Narrative # Acute decompensation of the chronic liver disease secondary to alcohol MELD score of 32 Patient has stopped drinking since his last admission Continue to monitor LFTs. 1 L p.o. fluid restriction in 24 hours 2 g sodium diet # Possibly SBP broad-spectrum IV antibiotics # Perigastric and esophageal varices Repeat upper endoscopy prior to discharge for further band ligation of the esophageal varices Will follow the patient Time Spent With Patient Time: Total time spent is greater than 50% in coordination of care (as documented) at patient's floor/unit and/or counseling patient:
[2024-09-09] VITALS (11 sets, daily range): BP systolic 105–124; BP diastolic 62–81; PULSE 77–89; RESP 16–25; TEMP 36.8–37.2; O2SAT 90–100; BMI 30.2
[2024-09-09] MEDS: LACTULOSE SYRUP 20 GM/30 ML UDC 30 GM PO ×3 (05:34→21:02)
[2024-09-09] MEDS: FUROSEMIDE INJ 10 MG/ML 4ML VIAL 40 MG IVP (05:36)
[2024-09-09 06:08] LABS: Basophils % (Auto) 0 % (0-2.5); Eosinophils % (Auto) 0 % (0-10); Hematocrit 23.8 % (41.0-53.0); Immature Granulocytes % (Auto) 1 % (0-0); Immature Granulocytes Auto 0.09 Thou/mm3 (0.00-0.00); Lymphocytes # (Auto) 0.7 Thou/mm3 (1.0-4.8); Lymphocytes % (Auto) 6 % (10-50); Mean Corpuscular HGB Conc 31.9 g/dl (31.0-37.0); Mean Corpuscular Hemoglobin 26.8 pg (25.0-35.0); Mean Corpuscular Volume 84 fL (80-100); Monocytes # (Auto) 1.1 Thou/mm3 (0.0-0.8); Monocytes % (Auto) 10 % (0-12); Neutrophils % (Auto) 83 % (37-80); Nucleated Red Blood Cell % 0 /100 WBC (0); RDW Standard Deviation 65.1 fL (35.1-43.9); Red Blood Count 2.84 Miln/mm3 (4.50-5.90)
[2024-09-09 06:13] LABS: Hemoglobin 7.6 g/dL (13.5-16.0); Platelet Count 57 Thou/mm3 (140-440)
[2024-09-09 06:24] LABS: Slide Review Platelets confirmed
[2024-09-09 06:26] LABS: Alanine Aminotransferase 86 U/L (10-49); Albumin, Serum 2.5 gm/dL (3.5-5.0); Albumin/Globulin Ratio 0.8 (1.2-2.2); Alkaline Phosphatase 68 U/L (46-116); Anion Gap 11 (7-16); Aspartate Amino Transferase 98 U/L (0-34); BUN/Creatinine Ratio 27 Ratio (12-20); Bilirubin,Total 14.7 mg/dL (0.3-1.2); Blood Urea Nitrogen 19 mg/dL (9-23); Calcium (Corrected) 9.2 mg/dL (8.5-10.1); Chloride 106 mMol/L (98-107); Creatinine (Component) 0.7 mg/dL (0.6-1.3); Estimated Creatinine Clearance 138.2 mL/min (>60); Globulin 3.2 gm/dL (2.3-3.5); Glucose 99 mg/dL (74-106); Osmolality,Calculated 279 (275-295); Potassium 3.9 mMol/L (3.4-5.1); Sodium 139 mMol/L (136-145); Total Protein 5.7 gm/dL (5.7-8.2); eGFR > 60 See Note
--- NOTE | 2024-09-09 09:17 | PD.RESPRO ---
Documentation for date of: 09/09/24 Subjective Subjective Interval history: 09/09/2024: No acute overnight events to report. Patient seen and examined in hospital bed denies having any concerning symptoms such as chest pain, shortness of breath, abdominal pain or distention. Patient generally appears markedly improved since first being admitted. Anasarca still present but is improving with peripheral edema noted up to bilateral knees. Will continue to aggressively diurese the patient and change IV Lasix to IV Bumex 2 mg x 1 along with a one-time dose of albumin 25 g to increase intravascular volume. If the patient's volume status improves; expecting discharge within the next 24 to 48 hours. Exam Vital Signs Temp Pulse Resp BP Pulse Ox O2 Del Method O2 Flow Rate 98.3 F 88 19 118/77 90 L Room Air 3 09/09/24 08:00 09/09/24 08:00 09/09/24 08:00 09/09/24 08:00 09/09/24 08:00 09/09/24 08:00 09/09/24 00:00 Narrative Exam Physical exam GENERAL: Patient is awake, answering questions appropriately, appears stated age, less jaundiced HEENT: PERRLA, EOMI, oropharynx clear. Scleral icterus present HEART: Sinus tachycardia with regular rhythm, normal S1/S2, no m/r/g LUNGS: CTAB. No crackles, rales, rhonchi or wheezing ABDOMEN: Soft, marked improvement in distention. Nontender on palpation. Past paracentesis site bandaged EXTREMITIES: Bilateral +2 lower extremity pitting edema up to knees, no pain elicited with dorsiflexion or plantarflexion NEUROLOGICAL: Alert oriented x 3, no focal neurologic deficits, moves extremities x 4 Objective Labs 09/09/24 05:26 09/09/24 05:26 Labs: Laboratory Results - last 24 hr 09/09/24 05:26 WBC 12.0 H RBC 2.84 L Hgb 7.6 L Hct 23.8 L MCV 84 MCH 26.8 MCHC 31.9 RDW Std Deviation 65.1 H Plt Count 57 L Neut % (Auto) 83 H Lymph % (Auto) 6 L [place] % (Auto) 10 Eos % (Auto) 0 Baso % (Auto) 0 Neut # (Auto) 10.0 H Lymph # (Auto) 0.7 L [place] # (Auto) 1.1 H Eos # (Auto) 0.0 Baso # (Auto) 0.0 Immature Gran # (Auto) 0.09 H Absolute Nucleated RBC 0.00 Immature Gran % 1 H Nucleated RBC % 0 Sodium 139 Potassium 3.9 Chloride 106 Carbon Dioxide 22.0 Anion Gap 11 BUN 19 Creatinine 0.7 Estim Creat Clear Calc 138.2 eGFR > 60 BUN/Creatinine Ratio 27 H Glucose 99 Calculated Osmolality 279 Calcium 8.0 L Corrected Calcium 9.2 Total Bilirubin 14.7 H AST 98 H ALT 86 H Alkaline Phosphatase 68 Total Protein 5.7 Albumin 2.5 L Globulin 3.2 Albumin/Globulin Ratio 0.8 L Misc Test Result Platelets confirmed ABG Interpretation ABG results: 08/31/24 08/31/24 00:36 16:50 ABG pH 7.45 ABG pCO2 19 L* ABG pO2 149 H ABG HCO3 14 L ABG O2 Saturation 101 H ABG Base Excess -9 L VBG pH 7.35 VBG pCO2 24 L VBG pO2 41 VBG Base Excess -12 L Quality Measures Quality Measures VTE prophylaxis (SCDs) Assessment & Plan Assessment Current Active Medications: Generic Name Dose Route Start Last Admin Trade Name Freq PRN Reason Stop Dose Admin Acetaminophen 650 mg 08/30/24 22:27 Acetaminophen 325 Mg Tablet PO 09/29/24 22:26 Q6H PRN Fever >101.5 Acetaminophen 650 mg 08/30/24 22:31 Acetaminophen Supp 650 Mg Supp AR 09/29/24 22:30 Q6H PRN PAIN SCALE 1-3 (mild Bumetanide 2 mg 09/09/24 21:00 Bumetanide Inj 0.25 Mg/Ml Vial 4 Ml IVP 09/09/24 21:01 X1 ONE Dextrose 25 ml 08/31/24 02:19 Dextrose 50%-Water Inj 50 Ml Syringe IV 09/30/24 02:18 Q15MIN PRN BG 50-70 responsive npo pt Dextrose 50 ml 08/31/24 02:19 Dextrose 50%-Water Inj 50 Ml Syringe IV 09/30/24 02:18 Q15MIN PRN BG <50 OR BG <70 & pt unresponsive Folic Acid 1 mg 08/31/24 09:00 09/08/24 08:58 Folic Acid 1 Mg Tablet PO 09/30/24 08:59 1 mg QDAY CATHY Administration Furosemide 40 mg 09/07/24 18:00 09/09/24 05:36 Furosemide Inj 10 Mg/Ml 4ml Vial IVP 10/07/24 17:59 40 mg BIDD CATHY Administration Glucagon 1 mg 08/31/24 02:19 Glucagon Inj 1 Mg Vial IM Q15MIN PRN BG <70, and no IV access Albumin Human 25 gm in 100 mls @ 100 mls/hr 09/09/24 09:03 Albuminar-25 Ivpb IV 09/09/24 10:02 X1 ONE Lactulose 30 gm 09/01/24 14:00 09/09/24 05:34 Lactulose Syrup 20 Gm/30 Ml Udc PO 10/01/24 13:59 30 gm TID CATHY Administration Protocol Midodrine 5 mg 08/31/24 12:01 Midodrine 5 Mg Tablet PO 09/30/24 13:59 TID PRN systolic bp <90 Nicotine 14 mg 08/31/24 09:00 09/08/24 09:02 Nicotine Patch 14 Mg/24 Hr Patch.Td24 TOP 09/30/24 08:59 Not Given QDAY CATHY Ondansetron HCl 4 mg 08/30/24 22:31 Ondansetron Inj 2 Mg/Ml Inj 2 Ml IV 09/29/24 22:30 Q6H PRN NAUSEA OR VOMITING Protocol Pantoprazole Sodium 40 mg 08/30/24 22:35 09/08/24 20:20 Pantoprazole Inj 40 Mg Vial IVP 09/29/24 22:34 40 mg Q12HR CATHY Administration Prednisone 30 mg 09/07/24 09:00 09/08/24 08:59 Prednisone 20 Mg Tablet PO 09/14/24 08:59 30 mg QDAY CATHY Administration Propranolol HCl 10 mg 09/05/24 09:45 09/08/24 20:21 Propranolol 10 Mg Tablet PO 10/05/24 09:44 10 mg BID CATHY Administration Sennosides 1 tab 08/30/24 22:31 Senna Tablet PO 09/29/24 22:30 QDAY PRN constipation Protocol Sodium Bicarbonate 325 mg 09/04/24 21:00 09/08/24 20:21 Sodium Bicarbonate 650 Mg Tablet PO 10/04/24 20:59 325 mg BID CATHY Administration Spironolactone 25 mg 09/04/24 21:00 09/08/24 20:20 Spironolactone 25 Mg Tablet PO 10/04/24 20:59 25 mg BID CATHY Administration Thiamine HCl 100 mg 08/31/24 09:00 09/08/24 08:59 Thiamine 100 Mg Tablet PO 09/30/24 08:59 100 mg QDAY CATHY Administration Plan 44-year-old male with past medical history of alcohol abuse, alcoholic cirrhosis status post variceal banding from GI bleed performed on 08/07/24 showing grade 1 esophageal varices and colonoscopy performed on 08/08/2024 showing hemorrhoids presented with abdominal discomfort, possible blood in stool, significant lower extremity edema with difficult urination from couple of days. Patient is admitted for sepsis likely secondary to SBP with underlying history of alcohol induced liver cirrhosis and anasarca. #Sepsis likely secondary to SBP #Alcohol induced decompensated liver cirrhosis and ascites with anasarca #Leukocytosis #Hyperbilirubinemia #Coagulopathy #Thrombocytopenia #Hypoalbuminemia #Hyperammonemia Patient presented from PCP follow-up with increased abdominal girth, decreased urination, abdominal pain and bilateral lower extremity edema Patient has quit drinking alcohol a month ago and is currently AOx3. Labs were significant for leukocytosis white count 16, normocytic anemia hemoglobin 7.6 and elevated LFTs with elevated T. bili and direct bili. MDF score 42.3 point Poor Prognosis Child Hale score C 11 points U/S guided paracentesis not completed as there is minimal ascites noted on imaging Patient remains + 2 pitting edema on lower extremity on b/l thighs Net negative of ~16 L since admission; however, not fairly accurate as the patient has been drinking outside hospital beverages Completed IV Zosyn, antibiotic course Plan: X1 IV albumin 25 g X1 1 mg Bumex Continue propranolol 10 mg p.o. twice daily Continue Spironolactone 25 mg bid Continue lactulose 30 mg 3 times daily as needed Tapering prednisone down to 30 mg daily for 1 week, will discharge with prednisone taper GI consulted, appreciate recommendations Replete electrolytes as necessary Bleeding precautions Avoiding hepatotoxic agents #Non-anion gap metabolic acidosis, resolved #Respiratory alkalosis, resolved #Lactic acidosis, improved #Electrolyte abnormalities Chemistry panel was significant for sodium 132 and chloride 108 and non-anion gap metabolic acidosis with bicarb 13.8 and anion gap 10. Kidney function showed BUN 17 and creatinine 1.1 with baseline creatinine 0.8 from 08/26/2024. Lactic acid was elevated at 5.9--> 3.2 ABGs showed pH 7.45, pCO2 19, pO2 149, bicarb 14.7 on CHEM panel FiO2 21% Most likely Primary Respiratory Alkalosis, Chronic, with: Secondary Metabolic Acidosis and Additional Non-Gap Metabolic Acidosis. NAGMA could be related to RTA 2 ampoule of bicarb given by admitting team Based on bicarb, expected pCO2 is 29?2; however, pCO2 on ABG shows 19 Delta delta is -8.5 which equates to mixed non-anion gap metabolic acidosis along with respiratory alkalosis Patient's respiratory alkalosis is likely secondary to increased work of breathing Non-anion gap metabolic acidosis could be secondary to an RTA; however, more likely secondary to cirrhosis and/or GI loss from bleed 21.0?mmol/L Urine anion gap positive Plan: Continue sodium bicarb tablets Replete as needed Monitor with morning labs #Anemia of Chronic Deficiency #History of GI bleed #History of gastric esophageal versus s/p banding on 08/07/24 #History of hemorrhoids per colonoscopy on 08/08/24 Labs were significant for hemoglobin 7.6 to 7.8 History of IR embolization and massive blood transfusion protocol was given during previous admission 08/31/2024: Hemoglobin did downtrend from 7.8-7.0 09/01/2024: Hemoglobin uptrending from 7.0-7.4 after 1 unit PRBC Transfused a total of 2u pRBC Iron panel: iron 34, TIBC 191, Iron saturation 17% and ferritin 37 (low normal) EGD shows Grade 2 esophageal varices, completely eradicated and banded. Gastritis with characteristic erythema, normal second portion of duodenum. Plan: PUD diet Hospital Management: Lines: PIV Diet: PUD, bland Bowel: Lactulose GI prophylaxis: Protonix 40 mg IV daily twice daily DVT prophylaxis: SCDs Disposition: Pending improvement in peripheral edema Code: Full Patient seen and assessed with attending Dr. Martínez Schwarz, PGY-1 Attending Provider Attestation/Addendum Netta Root, , attest that I was physically present for the cisneros portions of the service and evaluated the patient with the resident and I reviewed and discussed the case with the resident and agree with the resident's findings and plans of care as documented above Patient seen and evaluated this AM. He states that he is doing well. However, noted that patient's b/l LE edema appears to have worsened and appears to be dependent. Upon further questioning, patient revealed that he has been walking to the vending machine to buy soda and snacks. Re-emphasized to patient and his at bedside that he is not to consume any fluids or foods that is not provided by the hospital due to slow improvement. Will switch lasix to bumex.
[2024-09-09] MEDS: ALBUMIN HUMAN 25% IVPB 25 GM/100 ML BTL IV (09:47)
[2024-09-09] MEDS: PANTOPRAZOLE INJ 40 MG VIAL IVP ×2 (09:47→21:01)
[2024-09-09] MEDS: NICOTINE PATCH 14 MG/24 HR PATCH.TD24 TOP (09:47)
[2024-09-09] MEDS: SPIRONOLACTONE 25 MG TABLET PO ×2 (09:48→21:01)
[2024-09-09] MEDS: SODIUM BICARBONATE 650 MG TABLET 325 MG PO ×2 (09:48→21:02)
[2024-09-09] MEDS: predniSONE 20 MG TABLET 30 MG PO (09:49)
[2024-09-09] MEDS: PROPRANOLOL 10 MG TABLET PO ×2 (09:50→21:01)
[2024-09-09] MEDS: THIAMINE 100 MG TABLET PO (09:50)
[2024-09-09] MEDS: FOLIC ACID 1 MG TABLET PO (09:50)
--- NOTE | 2024-09-09 20:03 | ESPR_ITS ---
Documentation for date of: 09/09/24 Subjective Subjective Interval history: patient evaluated anasarca improving slowly Hemoglobin hematocrit 7.6 and 23.8 Platelet count 57,000 Total bilirubin 14.7 AST ALT 98 and 86 Exam Vital Signs Temp Pulse Resp BP Pulse Ox O2 Del Method O2 Flow Rate 98.5 F 83 18 124/76 93 L Room Air 3 09/09/24 16:00 09/09/24 16:00 09/09/24 16:00 09/09/24 16:00 09/09/24 16:00 09/09/24 16:00 09/09/24 00:00 Objective Labs 09/09/24 05:26 09/09/24 05:26 Labs: Laboratory Results - last 24 hr 09/09/24 05:26 WBC 12.0 H RBC 2.84 L Hgb 7.6 L Hct 23.8 L MCV 84 MCH 26.8 MCHC 31.9 RDW Std Deviation 65.1 H Plt Count 57 L Neut % (Auto) 83 H Lymph % (Auto) 6 L [place] % (Auto) 10 Eos % (Auto) 0 Baso % (Auto) 0 Neut # (Auto) 10.0 H Lymph # (Auto) 0.7 L [place] # (Auto) 1.1 H Eos # (Auto) 0.0 Baso # (Auto) 0.0 Immature Gran # (Auto) 0.09 H Absolute Nucleated RBC 0.00 Immature Gran % 1 H Nucleated RBC % 0 Sodium 139 Potassium 3.9 Chloride 106 Carbon Dioxide 22.0 Anion Gap 11 BUN 19 Creatinine 0.7 Estim Creat Clear Calc 138.2 eGFR > 60 BUN/Creatinine Ratio 27 H Glucose 99 Calculated Osmolality 279 Calcium 8.0 L Corrected Calcium 9.2 Total Bilirubin 14.7 H AST 98 H ALT 86 H Alkaline Phosphatase 68 Total Protein 5.7 Albumin 2.5 L Globulin 3.2 Albumin/Globulin Ratio 0.8 L Misc Test Result Platelets confirmed Impressions Impression: # Upper GI bleed status post band ligation of esophageal varices # Thrombocytopenia secondary to advanced portal hypertension and chronic liver disease # anasarca improving Continue current management ABG Interpretation ABG results: 08/31/24 08/31/24 00:36 16:50 ABG pH 7.45 ABG pCO2 19 L* ABG pO2 149 H ABG HCO3 14 L ABG O2 Saturation 101 H ABG Base Excess -9 L VBG pH 7.35 VBG pCO2 24 L VBG pO2 41 VBG Base Excess -12 L Assessment & Plan A&P Narrative # Acute decompensation of the chronic liver disease secondary to alcohol MELD score of 32 Patient has stopped drinking since his last admission Continue to monitor LFTs. 1 L p.o. fluid restriction in 24 hours 2 g sodium diet # Possibly SBP broad-spectrum IV antibiotics # Perigastric and esophageal varices Repeat upper endoscopy prior to discharge for further band ligation of the esophageal varices Will follow the patient Time Spent With Patient Time: Total time spent is greater than 50% in coordination of care (as documented) at patient's floor/unit and/or counseling patient:
[2024-09-09] MEDS: BUMETANIDE INJ 0.25 MG/ML VIAL 4 ML 2 MG IVP (21:00)
[2024-09-10] VITALS (11 sets, daily range): BP systolic 99–121; BP diastolic 61–77; PULSE 81–94; RESP 16–26; TEMP -12.7–37.6; O2SAT 95–100; BMI 30.2
[2024-09-10 05:39] LABS: Basophils % (Auto) 0 % (0-2.5); Eosinophils % (Auto) 0 % (0-10); Hematocrit 23.8 % (41.0-53.0); Immature Granulocytes % (Auto) 1 % (0-0); Immature Granulocytes Auto 0.07 Thou/mm3 (0.00-0.00); Lymphocytes # (Auto) 0.7 Thou/mm3 (1.0-4.8); Lymphocytes % (Auto) 5 % (10-50); Mean Corpuscular HGB Conc 31.9 g/dl (31.0-37.0); Mean Corpuscular Hemoglobin 26.9 pg (25.0-35.0); Mean Corpuscular Volume 84 fL (80-100); Monocytes % (Auto) 9 % (0-12); Neutrophils # (Auto) 10.2 Thou/mm3 (1.8-7.7); Neutrophils % (Auto) 85 % (37-80); Nucleated Red Blood Cell % 0 /100 WBC (0); Platelet Count 93 Thou/mm3 (140-440); RDW Standard Deviation 64.4 fL (35.1-43.9); Red Blood Count 2.83 Miln/mm3 (4.50-5.90)
[2024-09-10] MEDS: LACTULOSE SYRUP 20 GM/30 ML UDC 30 GM PO ×3 (05:39→21:22)
[2024-09-10 05:47] LABS: Hemoglobin 7.6 g/dL (13.5-16.0)
[2024-09-10 07:56] LABS: Alanine Aminotransferase 93 U/L (10-49); Albumin, Serum 2.6 gm/dL (3.5-5.0); Albumin/Globulin Ratio 0.8 (1.2-2.2); Anion Gap 9 (7-16); Aspartate Amino Transferase 102 U/L (0-34); BUN/Creatinine Ratio 24 Ratio (12-20); Bilirubin,Total 15.3 mg/dL (0.3-1.2); Blood Urea Nitrogen 19 mg/dL (9-23); Calcium 8.1 mg/dL (8.3-10.6); Calcium (Corrected) 9.2 mg/dL (8.5-10.1); Carbon Dioxide 22.8 mMol/L (20.0-31.0); Chloride 106 mMol/L (98-107); Creatinine (Component) 0.8 mg/dL (0.6-1.3); Estimated Creatinine Clearance 120.9 mL/min (>60); Globulin 3.2 gm/dL (2.3-3.5); Glucose 102 mg/dL (74-106); Osmolality,Calculated 277 (275-295); Potassium 3.9 mMol/L (3.4-5.1); Sodium 138 mMol/L (136-145); Total Protein 5.8 gm/dL (5.7-8.2); eGFR > 60 See Note
[2024-09-10 08:08] LABS: Alkaline Phosphatase 67 U/L (46-116)
[2024-09-10] MEDS: NICOTINE PATCH 14 MG/24 HR PATCH.TD24 TOP (09:13)
[2024-09-10] MEDS: PANTOPRAZOLE INJ 40 MG VIAL IVP ×2 (09:14→21:10)
[2024-09-10] MEDS: SPIRONOLACTONE 25 MG TABLET PO ×2 (09:14→21:11)
[2024-09-10] MEDS: THIAMINE 100 MG TABLET PO (09:14)
[2024-09-10] MEDS: SODIUM BICARBONATE 650 MG TABLET 325 MG PO ×2 (09:14→21:11)
[2024-09-10] MEDS: predniSONE 20 MG TABLET 30 MG PO (09:15)
[2024-09-10] MEDS: PROPRANOLOL 10 MG TABLET PO ×2 (09:16→21:12)
[2024-09-10] MEDS: FOLIC ACID 1 MG TABLET PO (09:16)
--- NOTE | 2024-09-10 13:45 | ESPR_ITS ---
<Statement entered by Nemesio Luna MD - 09/11/24 05:58> I discussed with and supervised the chemistry intern physician involved in the care of this patient. Patient assessment and plan was discussed with entire medicine team, including my attending. I agree with the assessment and plan as documented by chemistry intern doctor. Patient care was discussed with my attending physician Dr. Martínez Luna, PGY-2 Documentation for date of: 09/10/24 Subjective Subjective Interval history: 09/10/2024: No acute overnight events to report. Patient seen and examined in hospital bed with no concerning symptoms and reports no chest pain, shortness of breath or dizziness. Patient still appears to be volume overloaded with roughly +2 pitting edema on b/l extremities up to knees; however, the edema is improving day by day. We will change diuretics from Lasix to Bumex and reassess for peripherl edema. Will continue to monitor for any acute changes. Exam Vital Signs Temp Pulse Resp BP Pulse Ox O2 Del Method O2 Flow Rate 98.5 F 86 18 107/66 99 Room Air 3 09/10/24 12:00 09/10/24 12:00 09/10/24 12:00 09/10/24 12:00 09/10/24 12:00 09/10/24 12:00 09/09/24 00:00 Narrative Exam Physical exam GENERAL: Patient is awake, answering questions appropriately, appears stated age, less jaundiced HEENT: PERRLA, EOMI, oropharynx clear. Scleral icterus present HEART: Sinus tachycardia with regular rhythm, normal S1/S2, no m/r/g LUNGS: CTAB. No crackles, rales, rhonchi or wheezing ABDOMEN: Soft, marked improvement in distention. Nontender on palpation. Past paracentesis site bandaged EXTREMITIES: Bilateral +2 lower extremity pitting edema up to knees, no pain elicited with dorsiflexion or plantarflexion NEUROLOGICAL: Alert oriented x 3, no focal neurologic deficits, moves extremities x 4 Objective Labs 09/10/24 05:20 09/10/24 05:20 Labs: Laboratory Results - last 24 hr 09/10/24 05:20 WBC 12.0 H RBC 2.83 L Hgb 7.6 L Hct 23.8 L MCV 84 MCH 26.9 MCHC 31.9 RDW Std Deviation 64.4 H Plt Count 93 L D Neut % (Auto) 85 H Lymph % (Auto) 5 L [place] % (Auto) 9 Eos % (Auto) 0 Baso % (Auto) 0 Neut # (Auto) 10.2 H Lymph # (Auto) 0.7 L [place] # (Auto) 1.0 H Eos # (Auto) 0.0 Baso # (Auto) 0.0 Immature Gran # (Auto) 0.07 H Absolute Nucleated RBC 0.00 Immature Gran % 1 H Nucleated RBC % 0 Sodium 138 Potassium 3.9 Chloride 106 Carbon Dioxide 22.8 Anion Gap 9 BUN 19 Creatinine 0.8 Estim Creat Clear Calc 120.9 eGFR > 60 BUN/Creatinine Ratio 24 H Glucose 102 Calculated Osmolality 277 Calcium 8.1 L Corrected Calcium 9.2 Total Bilirubin 15.3 H D AST 102 H ALT 93 H Alkaline Phosphatase 67 Total Protein 5.8 Albumin 2.6 L Globulin 3.2 Albumin/Globulin Ratio 0.8 L ABG Interpretation ABG results: 08/31/24 08/31/24 00:36 16:50 ABG pH 7.45 ABG pCO2 19 L* ABG pO2 149 H ABG HCO3 14 L ABG O2 Saturation 101 H ABG Base Excess -9 L VBG pH 7.35 VBG pCO2 24 L VBG pO2 41 VBG Base Excess -12 L Quality Measures Quality Measures VTE prophylaxis (SCDs) Assessment & Plan Assessment Current Active Medications: Generic Name Dose Route Start Last Admin Trade Name Freq PRN Reason Stop Dose Admin Acetaminophen 650 mg 08/30/24 22:27 Acetaminophen 325 Mg Tablet PO 09/29/24 22:26 Q6H PRN Fever >101.5 Acetaminophen 650 mg 08/30/24 22:31 Acetaminophen Supp 650 Mg Supp [place] 09/29/24 22:30 Q6H PRN PAIN SCALE 1-3 (mild Dextrose 25 ml 08/31/24 02:19 Dextrose 50%-Water Inj 50 Ml Syringe IV 09/30/24 02:18 Q15MIN PRN BG 50-70 responsive npo pt Dextrose 50 ml 08/31/24 02:19 Dextrose 50%-Water Inj 50 Ml Syringe IV 09/30/24 02:18 Q15MIN PRN BG <50 OR BG <70 & pt unresponsive Folic Acid 1 mg 08/31/24 09:00 09/10/24 09:16 Folic Acid 1 Mg Tablet PO 09/30/24 08:59 1 mg QDAY CATHY Administration Furosemide 40 mg 09/07/24 18:00 09/09/24 05:36 Furosemide Inj 10 Mg/Ml 4ml Vial IVP 10/07/24 17:59 40 mg BIDD CATHY Administration Glucagon 1 mg 08/31/24 02:19 Glucagon Inj 1 Mg Vial IM Q15MIN PRN BG <70, and no IV access Lactulose 30 gm 09/01/24 14:00 09/10/24 05:39 Lactulose Syrup 20 Gm/30 Ml Udc PO 10/01/24 13:59 30 gm TID CATHY Administration Protocol Midodrine 5 mg 08/31/24 12:01 Midodrine 5 Mg Tablet PO 09/30/24 13:59 TID PRN systolic bp <90 Nicotine 14 mg 08/31/24 09:00 09/10/24 09:13 Nicotine Patch 14 Mg/24 Hr Patch.Td24 TOP 09/30/24 08:59 14 mg QDAY CATHY Administration Ondansetron HCl 4 mg 08/30/24 22:31 Ondansetron Inj 2 Mg/Ml Inj 2 Ml IV 09/29/24 22:30 Q6H PRN NAUSEA OR VOMITING Protocol Pantoprazole Sodium 40 mg 08/30/24 22:35 09/10/24 09:14 Pantoprazole Inj 40 Mg Vial IVP 09/29/24 22:34 40 mg Q12HR CATHY Administration Prednisone 30 mg 09/07/24 09:00 09/10/24 09:15 Prednisone 20 Mg Tablet PO 09/14/24 08:59 30 mg QDAY CATHY Administration Propranolol HCl 10 mg 09/05/24 09:45 09/10/24 09:16 Propranolol 10 Mg Tablet PO 10/05/24 09:44 10 mg BID CATHY Administration Sennosides 1 tab 08/30/24 22:31 Senna Tablet PO 09/29/24 22:30 QDAY PRN constipation Protocol Sodium Bicarbonate 325 mg 09/04/24 21:00 09/10/24 09:14 Sodium Bicarbonate 650 Mg Tablet PO 10/04/24 20:59 325 mg BID CATHY Administration Spironolactone 25 mg 09/04/24 21:00 09/10/24 09:14 Spironolactone 25 Mg Tablet PO 10/04/24 20:59 25 mg BID CATHY Administration Thiamine HCl 100 mg 08/31/24 09:00 09/10/24 09:14 Thiamine 100 Mg Tablet PO 09/30/24 08:59 100 mg QDAY CATHY Administration Plan 44-year-old male with past medical history of alcohol abuse, alcoholic cirrhosis status post variceal banding from GI bleed performed on 08/07/24 showing grade 1 esophageal varices and colonoscopy performed on 08/08/2024 showing hemorrhoids presented with abdominal discomfort, possible blood in stool, significant lower extremity edema with difficult urination from couple of days. Patient is admitted for sepsis likely secondary to SBP with underlying history of alcohol induced liver cirrhosis and anasarca. #Sepsis likely secondary to SBP, resolved #Alcohol induced decompensated liver cirrhosis and ascites with anasarca #Leukocytosis #Hyperbilirubinemia #Coagulopathy #Thrombocytopenia #Hypoalbuminemia #Hyperammonemia Patient presented from PCP follow-up with increased abdominal girth, decreased urination, abdominal pain and bilateral lower extremity edema Patient has quit drinking alcohol a month ago and is currently AOx3. Labs were significant for leukocytosis white count 16, normocytic anemia hemoglobin 7.6 and elevated LFTs with elevated T. bili and direct bili. MDF score 42.3 point Poor Prognosis Child Hale score C 11 points U/S guided paracentesis not completed as there is minimal ascites noted on imaging Patient remains + 2 pitting edema on lower extremity on b/l thighs Net negative of ~17 L since admission; however, not fairly accurate as the patient has been drinking outside hospital beverages Completed IV Zosyn, antibiotic course Plan: Starting Bumex 2mg daily - sriram reassess level of edema on 09/11 Continue propranolol 10 mg p.o. twice daily Continue Spironolactone 25 mg bid Continue lactulose 30 mg 3 times daily as needed Tapering prednisone down to 30 mg daily for 1 week, will discharge with prednisone taper GI consulted, appreciate recommendations Replete electrolytes as necessary Bleeding precautions Avoiding hepatotoxic agents #Non-anion gap metabolic acidosis, resolved #Respiratory alkalosis, resolved #Lactic acidosis, improved #Electrolyte abnormalities Chemistry panel was significant for sodium 132 and chloride 108 and non-anion gap metabolic acidosis with bicarb 13.8 and anion gap 10. Kidney function showed BUN 17 and creatinine 1.1 with baseline creatinine 0.8 from 08/26/2024. Lactic acid was elevated at 5.9--> 3.2 ABGs showed pH 7.45, pCO2 19, pO2 149, bicarb 14.7 on CHEM panel FiO2 21% Most likely Primary Respiratory Alkalosis, Chronic, with: Secondary Metabolic Acidosis and Additional Non-Gap Metabolic Acidosis. NAGMA could be related to RTA 2 ampoule of bicarb given by admitting team Based on bicarb, expected pCO2 is 29?2; however, pCO2 on ABG shows 19 Delta delta is -8.5 which equates to mixed non-anion gap metabolic acidosis along with respiratory alkalosis Patient's respiratory alkalosis is likely secondary to increased work of breathing Non-anion gap metabolic acidosis could be secondary to an RTA; however, more likely secondary to cirrhosis and/or GI loss from bleed 21.0?mmol/L Urine anion gap positive Plan: Continue sodium bicarb tablets Replete as needed Monitor with morning labs #Anemia of Chronic Deficiency #History of GI bleed #History of gastric esophageal versus s/p banding on 08/07/24 #History of hemorrhoids per colonoscopy on 08/08/24 Labs were significant for hemoglobin 7.6 to 7.8 History of IR embolization and massive blood transfusion protocol was given during previous admission 08/31/2024: Hemoglobin did downtrend from 7.8-7.0 09/01/2024: Hemoglobin uptrending from 7.0-7.4 after 1 unit PRBC Transfused a total of 2u pRBC Iron panel: iron 34, TIBC 191, Iron saturation 17% and ferritin 37 (low normal) EGD shows Grade 2 esophageal varices, completely eradicated and banded. Gastritis with characteristic erythema, normal second portion of duodenum. Plan: PUD diet Hospital Management: Lines: PIV Diet: PUD, bland Bowel: Lactulose GI prophylaxis: Protonix 40 mg IV daily twice daily DVT prophylaxis: SCDs Disposition: Pending improvement in peripheral edema Code: Full Patient seen and assessed with attending Dr. Soliz and senior resident Dr. Cheryl Schwarz, PGY-1 Attending Provider Attestation/Addendum Dk, Netta Soliz, , attest that I was physically present for the cisneros portions of the service and evaluated the patient with the resident and I reviewed and discussed the case with the resident and agree with the resident's findings and plans of care as documented above Patient seen and evaluated this AM. B/l LE edema appears much improved,, about 1+ pitting edema. Patient continues to have lots of snacks at bedside. Counselled patient on maintaining low sodium diet and fluid restriction due to anasarca. He otherwise reports no abdominal pain. Edema improved with extra dose of bumex yesterday. Will switch lasix to bumex 2mg IV BID. Anticipate DC within next 24h if edema continues to improve. Patient denies any shortness of breath.
--- NOTE | 2024-09-10 20:05 | PD.IMPROG ---
Documentation for date of: 09/10/24 Subjective Subjective Interval history: Patient evaluated Hemoglobin hematocrit 7.6 and 23.8 Total bilirubin 15.3 AST ALT 102/93 and alk phos 67 Exam Vital Signs Temp Pulse Resp BP Pulse Ox O2 Del Method O2 Flow Rate 97.5 F 83 26 H 114/71 99 Room Air 3 09/10/24 16:00 09/10/24 16:00 09/10/24 16:00 09/10/24 16:00 09/10/24 16:00 09/10/24 16:00 09/09/24 00:00 Objective Labs 09/10/24 05:20 09/10/24 05:20 Labs: Laboratory Results - last 24 hr 09/10/24 05:20 WBC 12.0 H RBC 2.83 L Hgb 7.6 L Hct 23.8 L MCV 84 MCH 26.9 MCHC 31.9 RDW Std Deviation 64.4 H Plt Count 93 L D Neut % (Auto) 85 H Lymph % (Auto) 5 L [place] % (Auto) 9 Eos % (Auto) 0 Baso % (Auto) 0 Neut # (Auto) 10.2 H Lymph # (Auto) 0.7 L [place] # (Auto) 1.0 H Eos # (Auto) 0.0 Baso # (Auto) 0.0 Immature Gran # (Auto) 0.07 H Absolute Nucleated RBC 0.00 Immature Gran % 1 H Nucleated RBC % 0 Sodium 138 Potassium 3.9 Chloride 106 Carbon Dioxide 22.8 Anion Gap 9 BUN 19 Creatinine 0.8 Estim Creat Clear Calc 120.9 eGFR > 60 BUN/Creatinine Ratio 24 H Glucose 102 Calculated Osmolality 277 Calcium 8.1 L Corrected Calcium 9.2 Total Bilirubin 15.3 H D AST 102 H ALT 93 H Alkaline Phosphatase 67 Total Protein 5.8 Albumin 2.6 L Globulin 3.2 Albumin/Globulin Ratio 0.8 L Impressions Impression: # Upper GI bleeding secondary to esophageal varices requiring band ligation # Chronic liver disease secondary to alcohol Continue current ABG Interpretation ABG results: 08/31/24 08/31/24 00:36 16:50 ABG pH 7.45 ABG pCO2 19 L* ABG pO2 149 H ABG HCO3 14 L ABG O2 Saturation 101 H ABG Base Excess -9 L VBG pH 7.35 VBG pCO2 24 L VBG pO2 41 VBG Base Excess -12 L Assessment & Plan A&P Narrative # Acute decompensation of the chronic liver disease secondary to alcohol MELD score of 32 Patient has stopped drinking since his last admission Continue to monitor LFTs. 1 L p.o. fluid restriction in 24 hours 2 g sodium diet # Possibly SBP broad-spectrum IV antibiotics # Perigastric and esophageal varices Repeat upper endoscopy prior to discharge for further band ligation of the esophageal varices Will follow the patient Time Spent With Patient Time: Total time spent is greater than 50% in coordination of care (as documented) at patient's floor/unit and/or counseling patient:
[2024-09-10] MEDS: BUMETANIDE INJ 0.25 MG/ML VIAL 4 ML 2 MG IVP (21:10)
[2024-09-11] VITALS (9 sets, daily range): BP systolic 104–115; BP diastolic 63–73; PULSE 72–84; RESP 15–24; TEMP 36.7–37.1; O2SAT 98–99; BMI 26.7
[2024-09-11 05:51] LABS: Basophils % (Auto) 0 % (0-2.5); Eosinophils % (Auto) 0 % (0-10); Hematocrit 23.8 % (41.0-53.0); Immature Granulocytes % (Auto) 1 % (0-0); Immature Granulocytes Auto 0.08 Thou/mm3 (0.00-0.00); Lymphocytes # (Auto) 0.8 Thou/mm3 (1.0-4.8); Lymphocytes % (Auto) 6 % (10-50); Mean Corpuscular HGB Conc 32.4 g/dl (31.0-37.0); Mean Corpuscular Hemoglobin 26.9 pg (25.0-35.0); Mean Corpuscular Volume 83 fL (80-100); Monocytes % (Auto) 7 % (0-12); Neutrophils # (Auto) 11.4 Thou/mm3 (1.8-7.7); Neutrophils % (Auto) 86 % (37-80); Nucleated Red Blood Cell % 0 /100 WBC (0); Platelet Count 190 Thou/mm3 (140-440); RDW Standard Deviation 64.4 fL (35.1-43.9); Red Blood Count 2.86 Miln/mm3 (4.50-5.90); White Blood Count 13.2 Thou/mm3 (3.8-10.6)
[2024-09-11 05:57] LABS: Hemoglobin 7.7 g/dL (13.5-16.0)
[2024-09-11] MEDS: LACTULOSE SYRUP 20 GM/30 ML UDC 30 GM PO ×2 (06:18→14:01)
[2024-09-11 06:22] LABS: Alanine Aminotransferase 107 U/L (10-49); Albumin, Serum 2.5 gm/dL (3.5-5.0); Albumin/Globulin Ratio 0.7 (1.2-2.2); Alkaline Phosphatase 69 U/L (46-116); Anion Gap 10 (7-16); Aspartate Amino Transferase 109 U/L (0-34); BUN/Creatinine Ratio 35 Ratio (12-20); Bilirubin,Total 16.3 mg/dL (0.3-1.2); Blood Urea Nitrogen 21 mg/dL (9-23); Calcium 8.5 mg/dL (8.3-10.6); Calcium (Corrected) 9.7 mg/dL (8.5-10.1); Carbon Dioxide 22.5 mMol/L (20.0-31.0); Chloride 109 mMol/L (98-107); Creatinine (Component) 0.6 mg/dL (0.6-1.3); Estimated Creatinine Clearance 152.1 mL/min (>60); Globulin 3.6 gm/dL (2.3-3.5); Glucose 100 mg/dL (74-106); Osmolality,Calculated 284 (275-295); Potassium 4.4 mMol/L (3.4-5.1); Sodium 141 mMol/L (136-145); Total Protein 6.1 gm/dL (5.7-8.2); eGFR > 60 See Note
[2024-09-11] MEDS: BUMETANIDE INJ 0.25 MG/ML VIAL 4 ML 2 MG IVP (09:23)
[2024-09-11] MEDS: NICOTINE PATCH 14 MG/24 HR PATCH.TD24 TOP (09:24)
[2024-09-11] MEDS: PANTOPRAZOLE INJ 40 MG VIAL IVP (09:24)
[2024-09-11] MEDS: SODIUM BICARBONATE 650 MG TABLET 325 MG PO (09:25)
[2024-09-11] MEDS: PROPRANOLOL 10 MG TABLET PO (09:25)
[2024-09-11] MEDS: THIAMINE 100 MG TABLET PO (09:25)
[2024-09-11] MEDS: FOLIC ACID 1 MG TABLET PO (09:26)
[2024-09-11] MEDS: SPIRONOLACTONE 25 MG TABLET PO (09:26)
[2024-09-11] MEDS: predniSONE 20 MG TABLET 30 MG PO (09:27)
[2024-09-11 09:34] LABS: Magnesium 1.6 mg/dL (1.6-2.6); Phosphorous 3.1 mg/dL (2.4-5.1)
--- NOTE | 2024-09-11 09:55 | PC.SS ---
Follow up note: On IV diuresis. Pt will return home upon dc.
[2024-09-11] MEDS: Magnesium Sulfate 4 GM Ivpb 4 GM/50 ML BAG IV (10:11)
--- NOTE | 2024-09-11 11:06 | ESDS_ITS ---
<Statement entered by Nemesio Luna MD - 09/11/24 18:44> I discussed with and supervised the it intern physician involved in the care of this patient. Patient assessment and plan was discussed with entire medicine team, including my attending. I agree with the assessment and plan as documented by it intern doctor. Patient care was discussed with my attending physician Dr. Anita Luna, PGY-2 Planned Discharge Date 09/11/24 DS: Providers Provider Date of admission: 08/30/24 22:27 Primary care physician: Physician Brianda Primary/Family Admitting Provider: Clinton Jensen MD Attending Provider on Admission: Ajay Howard MD Consults: 08/30/24 22:28 Consult to Gastroenterology Stat Comment: Suspect spontaneous bacterial peritonitis Consulting Provider: Julissa Orozco 08/30/24 22:34 Consult to Gastroenterology Stat Comment: Consulting Provider: Julissa Orozco 09/01/24 00:12 Referral Registered Dietitian Routine Comment: wound protocol 09/01/24 00:13 Referral Wound Care Routine Comment: left foot Attending Provider on DC: Osmany Schwarz MD Discharging Provider: Osmany Schwarz MD DS: Diagnosis Problem List Completed Was Problem List Reviewed/Reconciled?: Yes Hospital Course Hospital Course Hospital course: 44-year-old male with past medical history of alcohol use disorder, alcoholic cirrhosis status post variceal banding presented to the ED on 08/30 with abdominal pain and distention. In the ED, patient was moderately hypotensive and tachycardic but saturating well on room air. Labs were significant for leukocytosis, non-anion gap metabolic acidosis with elevated lactic acid, total bilirubin. Abdominal ultrasound showed minimal ascites, abdominal x-ray showed small bowel ileus, CT abdomen pelvis showed small right pleural effusion, cirrhosis, splenomegaly, moderate ascites; moreover, the patient was admitted for treatment of suspected SBP and possible need for ultrasound-guided paracentesis. Gastroenterology was consulted for suspicion of GI bleed likely secondary to esophageal varices; moreover, the patient had a EGD completed which showed grade 2 esophageal varices which were completely eradicated and banded. Patient was started on octreotide drip and there was close monitoring with laboratory analysis. Patient did develop anasarca secondary to end-stage liver disease with +3 pitting edema noted up to bilateral hips and was started on IV diuretics. Patient's medications for cirrhosis were adjusted including the ones listed below with instructions. Patient made progressive improvement in anasarca and will be discharged with the following strict instructions. Please start taking Furosemide 40mg qday, lactulose 30mg three times a day, protonix 40mg twice a day, propranolol 10mg twice a day, spironolactone 25mg twice a day If your blood pressure is less than 100/60, take midodrine 5mg up to three times a day Continue taking Prednisone taper as directed Use Nictotine patch as needed, avoid smoking cigarettes Stop drinking alcohol as you will need to be sober for at least 6 months in order to be put on the transplant list Follow-up with your PCP within 1-2 weeks; ask to be referred to Gastroenterology for ESLD, cirrhosis If your symptoms worsen or if you develop new chest pain, shortness breath, abdominal pain/distension or bleeding - please come back to the ED immediately Hospital Diagnosis: #Sepsis likely secondary to SBP, resolved #Alcohol induced decompensated liver cirrhosis and ascites with anasarca #Leukocytosis #Hyperbilirubinemia #Coagulopathy #Thrombocytopenia #Hypoalbuminemia #Hyperammonemia #Non-anion gap metabolic acidosis, resolved #Respiratory alkalosis, resolved #Lactic acidosis, improved #Electrolyte abnormalities #Anemia of Chronic Deficiency #History of GI bleed #History of gastric esophageal versus s/p banding on 08/07/24 #History of hemorrhoids per colonoscopy on 08/08/24 Osmany Schwarz, PGY-1 Status at Discharge Overall status at discharge: patient is progressing back to baseline Time Spent with Patient Time attestation: Total time spent providing and/or coordinating discharge services: 45 minutes Time spent: Greater than 30 minutes Exam Vital Signs Temp Pulse Resp BP Pulse Ox O2 Del Method O2 Flow Rate 98.7 F 75 17 104/64 99 Room Air 3 09/11/24 07:58 09/11/24 09:26 09/11/24 07:58 09/11/24 09:26 09/11/24 07:58 09/11/24 07:58 09/09/24 00:00 Narrative Exam Physical exam GENERAL: Patient is awake, answering questions appropriately, appears stated age, less jaundiced HEENT: PERRLA, EOMI, oropharynx clear. Scleral icterus present HEART: Sinus tachycardia with regular rhythm, normal S1/S2, no m/r/g LUNGS: CTAB. No crackles, rales, rhonchi or wheezing ABDOMEN: Soft, marked improvement in distention. Nontender on palpation. Past paracentesis site bandaged EXTREMITIES: Bilateral +1 lower extremity pitting edema up to knees, no pain elicited with dorsiflexion or plantarflexion NEUROLOGICAL: Alert oriented x 3, no focal neurologic deficits, moves extremities x 4 Discharge Plan Plan Patient Disposition: HOME (Self Care) Disposition Comment: Guarded Patient condition on transfer: Stable Care Plan Goals: Please start taking Furosemide 40mg qday, lactulose 30mg three times a day, protonix 40mg twice a day, propranolol 10mg twice a day, spironolactone 25mg twice a day If your blood pressure is less than 100/60, take midodrine 5mg up to three times a day Continue taking Prednisone taper as directed Use Nictotine patch as needed, avoid smoking cigarettes Stop drinking alcohol as you will need to be sober for at least 6 months in order to be put on the transplant list Follow-up with Dr. Huff on Monday09/13/2024 at 10:30am; ask to be referred to Gastroenterology for ESLD, cirrhosis If your symptoms worsen or if you develop new chest pain, shortness breath, abdominal pain/distension or bleeding - please come back to the ED immediately Prescriptions/Referrals Prescriptions/Med Rec: New lactulose 20 gram/30 mL Solution 30 g PO TID 30 Days Qty: 4050 0RF midodrine 5 mg Tablet 5 mg PO TID PRN (Reason: if blood pressure is less than 100/60) 30 Days Qty: 90 0RF nicotine 14 mg/24 hr Patch 24 Hour 14 mg top QDAY Qty: 14 0RF prednisone 20 mg Tablet 10 mg PO QDAY Qty: 27 0RF Taper: Prednisone Taper 30 mg DAILY for 2 Days and 0 Hour 20 mg DAILY for 7 Days and 0 Hour 10 mg DAILY for 7 Days and 0 Hour spironolactone 25 mg Tablet 25 mg PO BID 30 Days Qty: 60 0RF propranolol 10 mg Tablet 10 mg PO BID 30 Days Qty: 60 0RF furosemide 40 mg tablet 40 mg PO QDAY 30 Days Qty: 30 0RF pantoprazole [Protonix] 40 mg tablet,delayed release (DR/EC) 40 mg PO BID 30 Days Qty: 60 0RF Discontinued spironolactone 25 mg tablet 25 mg PO QDAY Qty: 30 3RF furosemide [Lasix] 20 mg tablet 20 mg PO QAM Qty: 30 3RF pantoprazole [Protonix] 40 mg tablet,delayed release (DR/EC) 40 mg PO QDAY Qty: 30 0RF methylprednisolone 4 mg tablet 32 mg PO DAILY Patient Comments: TAKE EIGHT TABLETS BY MOUTH WITH FOOD ONCE DAILY FOR 5 DAYS lactulose 10 gram/15 mL solution 30 ml PO TID Patient Comments: GIVE 30 ML BY MOUTH THREE TIMES DAILY FOR FOURTEEN DAYS NEEDED FOR CONSTIPATION Referrals: No Primary/Family,Physician [Primary Care Provider] - Patient/Caregiver Discharge Instructions Discharge Activity: activity as tolerated Education Materials: Treating Cirrhosis, Understanding Cirrhosis, Taking a Diuretic, Alcoholism: Getting Help, Coping with Smoking Withdrawal, Discharge Instructions for ... Print Language: Maltese Stand Alone Forms: Ella Award Info., Patient Portal Info Letter Discharge Order Discharge Orders: Discharge (Routine); Ordered 09/11/24 Ordered By: Osmany Schwarz Quality Discharge Quality Measures VTE prophylaxis MD Attestestation MD Attestation I reviewed labs, imaging, EKG, home medications and prior available records. Face to face evaluation was performed by me. I have personally examined the patient and discussed assessment and plan with the IM team. I reviewed the resident note and agree with the plan with exceptions as below. Alcoholic cirrhosis SBP Abdominal ascites Lower extremity edema Alcoholic hepatitis Counseled the patient regarding the importance of alcohol cessation Finished antibiotic treatment for SBP Continue p.o. Bumex and p.o. spironolactone In case of worsening abdominal distention, will need scheduled paracentesis 2 g sodium diet restriction daily Continue lactulose Outpatient follow-up with GI/liver transplant Time spent is 40 minutes. More than 50% of the time was spent on patient education and coordination of care.
--- NOTE | 2024-09-11 15:14 | PC.SS ---
Follow up note: Pt will d/c home today.
== END 2024-09-11 17:13 | disposition home or self-care (01) | DRG 720 ==
LOC: SERX 22:11 → SERHOLD 23:04 → S2NX 08-31 18:39
PROVIDERS: Nurse Practitioner Family; Specialist; Student in an Organized Health Care Education/Training Program; Admitting Provider Internal Medicine; Emergency Provider Internal Medicine; Visit Provider Student in an Organized Health Care Education/Training Program
PROC: (CPT 43239; principal; 2024-09-01 15:30)
DX: A41.9 Sepsis, unspecified organism (principal); K70.31 Alcoholic cirrhosis of liver with ascites; F10.10 Alcohol abuse, uncomplicated; K65.2 Spontaneous bacterial peritonitis; E87.4 Mixed disorder of acid-base balance; D68.9 Coagulation defect, unspecified; E88.09 Other disorders of plasma-protein metabolism, not elsewhere classified; K64.9 Unspecified hemorrhoids; K29.70 Gastritis, unspecified, without bleeding; K76.6 Portal hypertension; D62 Acute posthemorrhagic anemia; R16.1 Splenomegaly, not elsewhere classified; I85.11 Secondary esophageal varices with bleeding; R19.5 Other fecal abnormalities; K42.9 Umbilical hernia without obstruction or gangrene; K56.7 Ileus, unspecified; D69.59 Other secondary thrombocytopenia; K72.10 Chronic hepatic failure without coma; E87.70 Fluid overload, unspecified; Z87.891 Personal history of nicotine dependence; Z79.899 Other long term (current) drug therapy; R60.0 Localized edema
CPT/HCPCS: 36415; 36430; 36600; 71045; 74018; 74174; 76705; 80048; 80053; 80074; 82140; 82248; 82270; 82436; 82570; 82728; 82803; 83540; 83550; 83605; 83615; 83735; 84100; 84133; 84145; 84300; 85014; 85018; 85025; 85610; 85730; 86850; 86870; 86900; 86901; 86921; 86922; 86965; 87040; 87081; 93970; 96361; 96365; 96366; 96372; 96375; 99291; A4649; J1200; J1940; J2250; J2354; J2470; J2543; J3010; J3430; J3475; J3480; J3490; J7030; J7040; J7050; J7120; J7512; J7999; P9016; P9047; Q9967; A9270

== ENCOUNTER 2024-09-13 10:51 | Outpatient (AMB) | payer MEDICAID, SELFPAY ==
[2024-09-13 10:54] VITALS: BP 108/68; PULSE 78; RESP 16; TEMP 36.8; O2SAT 97; BMI 25.4
--- NOTE | 2024-09-13 10:54 | PD.RESCLINIC ---
Vital Signs 09/13/24 10:54 Height 1.7 m Height Method Stated Weight 73.595 kg Weight Measurement Method Standing Scale BMI 25.4 BP 108/68 Blood Pressure Source Automatic Cuff Blood Pressure Location Left Upper Arm Position Sitting Respiration 16 Pulse 78 Pulse Source Monitor Temp 98.3 F Temp Source Temporal Artery Scan Pulse Oximetry (%) 97 Oxygen Delivery Method Room Air Allergies/Meds Allergies & Medications Allergies No Known Allergies Allergy (Verified 09/13/24 10:55) Medication Reconciliation furosemide 40 mg tablet 40 mg PO QDAY 1 month #30 tabs 09/11/24 [Rx Confirmed 09/13/24] lactulose 20 gram/30 mL oral solution 30 g (45 mL) PO TID 1 month #4,050 mL 09/11/24 [Rx Confirmed 09/13/24] midodrine 5 mg tablet 5 mg PO TID PRN if blood pressure is less than 100/60 1 month #90 tabs 09/11/24 [Rx Confirmed 09/13/24] nicotine 14 mg/24 hr daily transdermal patch 14 mg top QDAY #14 ea 09/11/24 [Rx Confirmed 09/13/24] pantoprazole 40 mg tablet,delayed release (Protonix) 40 mg PO BID 1 month #60 tabs 09/11/24 [Rx Confirmed 09/13/24] prednisone 20 mg tablet 10 mg PO QDAY #27 tabs 09/11/24 [Rx Confirmed 09/13/24] propranolol 10 mg tablet 10 mg PO BID 1 month #60 tabs 09/11/24 [Rx Confirmed 09/13/24] spironolactone 25 mg tablet 25 mg PO BID 1 month #60 tabs 09/11/24 [Rx Confirmed 09/13/24] MA Intake Visit Data Collection New Patient or Established: Established Patient (seen at [facility] within 3 years) Seen by Clinical Staff ONLY (RN/MA): No Pain Present Currently: No Pain Scale Used: [employer] Required: No PCP or OBGYN visit in last 3 months: Yes Hx Now: No Do You Feel Safe at Home: Yes Authorities Contacted: N/A Smoking Status Smoking Status: Former smoker Immunization / Flu Flu Vaccine in the Last 12 Months: No Flu Vaccine Exclusion Criteria: No Exclusion Criteria Past Medical History Past Medical History NEUROLOGIC: Negative Neurological Disorders or Seizures CARDIAC: Negative Cardiac Disorders or Congestive Heart Failure RESPIRATORY: Negative Chronic Obstructive Pulmonary Disease (COPD) or Asthma GASTROINTESTINAL: Positive Cirrhosis, Gastrointestinal Bleed and Esophageal Varices; Negative Gastrointestinal Disorders or Hepatitis GENITOURINARY: Negative Genitourinary Disorders or Renal Disease ENDOCRINE: Negative Endocrine Disorders, Diabetes Mellitus Type 1 or Diabetes Mellitus Type 2 HEMATOLOGIC: Positive Anemia; Negative Blood Disorders or Sickle Cell Disease OTHER HISTORY: Positive Hospitalization, Blood Transfusions and Chicken Pox; Negative Autoimmune Disease, Down Syndrome, Developmental Delay, Falls, Blood Transfusion Reaction, Anesthesia Reactions, MRSA, VRSA, Vancomycin-Resistant Enterococci, Human Immunodeficiency Virus (HIV), Measles, Mumps, Rubella (Thai Measles), Pertussis, Clostridium Difficile or Cancer Family History FAMILY HISTORY: Positive Family Respiratory Disorders and Family Cancer; Negative Family Psychiatric Problems, Family Cardiac Disorders, Family Gastrointestinal Problems, Family Surgery or Family Anesthesia Reaction Surgical History SURGICAL: Positive Abdominal Surgery Social History SMOKING STATUS: Smoking status: Former smoker ALCOHOL: Alcohol Intake: Former ALCOHOL FREQUENCY: Alcohol Intake Frequency: 3 or More Drinks per Day HOUSING: Housing: House LIVES WITH: Lives With: Family and Spouse Patient Portal Questionaires Social History Living Situation History Housing: House Housing Other:: Pt lives with mom and Tobacco History Smoking Status: Former smoker Alcohol History Alcohol Intake: Former Alcohol Intake Frequency: 3 or More Drinks per Day Alcohol Intake Frequency Other:: LAST MONTH Domestic Abuse History Do You Feel Safe at Home: Yes Review of Systems Report any current symptoms Only answer those that you have currently: Past Medical History Past Medical History Have you ever been diagnosed with any of the following: Neurological Problems Seizures: No Cardiology Problems Congestive Heart Failure: No Respiratory Problems Chronic Obstructive Pulmonary Disease (COPD): No Asthma: No Stomache/Intestinal Problems Hepatitis: No Cirrhosis: Yes Gastrointestinal Bleed: Yes Esophageal Varices: Yes Genital/Urinary Problems Renal Disease: No Endocrine Problems Diabetes Mellitus Type 1: No Diabetes Mellitus Type 2: No Blood Problems Anemia: Yes Sickle Cell Disease: No Other Problems Hospitalization: Yes Autoimmune Disease: No Down Syndrome: No Developmental Delay: No Falls: No Blood Transfusions: Yes Blood Transfusion Reaction: No Anesthesia Reactions: No MRSA: No VRSA: No Vancomycin-Resistant Enterococci: No Human Immunodeficiency Virus (HIV): No Chicken Pox: Yes Measles: No Mumps: No Rubella (Thai Measles): No Pertussis: No Clostridium Difficile: No Cancer: No History of Present Illness HPI Narrative 44 y/o M with PMHx of alcohol abuse, alcoholic cirrhosis, status post variceal banding from a GI bleed (09-21-2022) came to the [facility] for hospital follow up. Patient was recently admitted to [facility] for hematemesis and active GI bleed requiring >10 transfusions. Eventually patient was transferred to another institution for possible IR embolization. 08/30/2024: Patient here for follow-up. Patient had recent ED visit (08/26/2024) and had paracentesis with removal of 3.6L of fluid. Patient states having continued increase in abdominal girth as well as swelling of the bilateral lower extremities causing him pain, despite having paracentesis 4 days ago. Additionally patient reports having shortness of breath which he attributes to not being able to move around. He also reports having barely any urine production in the recent days. When asked patient states abdominal distention at first improved with paracentesis however patient today states ascites has continued to worsen. Patient was instructed to go to the ER for possible paracentesis. 09/13/2024: Patient evaluated for follow-up, Recently discharged from hospital on 09/11/2024, patient was admitted for sepsis likely secondary to SBP, decompensated liver disease cirrhosis with ascites and anasarca, received IV diuresis, started on nonselective beta-luli and spironolactone. Patient was discharged on prednisone taper, for alcoholic hepatitis leading to hyperbilirubinemia. Patient reports improvement in symptoms and abdominal distention. Denied dark stools or abdominal pain or fever. Recommended increasing propranolol to 20 mg twice daily, with caution regarding low blood pressure, dizziness vertigo, and increasing spironolactone from 50 mg to 100 mg/day after a few days, continuing same dose of diuretics. 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 Counseled regarding continuing alcohol abstinence, patient demonstrated understanding. Review of Systems Review of Systems Systems Reviewed: All systems reviewed, normal except as documented Objective/Exam Narrative Physical exam: Physical Exam GENERAL: NAD, AAOx3, jaundiced, improving anasarca, HEENT: Moist mucosa. Eyes open, symmetrical, scleral icterus CARDIO: Heart RRR, no obvious murmurs PULM: No noted coughing/dyspnea CTA B/L, no R/W/R GI: Abdomen distended, non tender to palpation SKIN/MSK/EXT: bilateral lower extremity edema +2. Pedal pulses present B/L NEURO: AAOx3, no focal neuro deficits, able to move all 4 extremities Assessment & Plan Diagnosis / Problem List (1) Cirrhosis, alcoholic: Status: Acute Qualifiers: Ascites presence: with ascites Qualified Code(s): K70.31 - Alcoholic cirrhosis of liver with ascites Assessment & Plan: Recently discharged from hospital on 09/11/2024, patient was admitted for sepsis likely secondary to SBP, decompensated liver disease cirrhosis with ascites and anasarca, received IV diuresis, started on nonselective beta-luli and spironolactone. Patient was discharged on prednisone taper, for alcoholic hepatitis leading to hyperbilirubinemia. Patient reports improvement in symptoms and abdominal distention. Denied dark stools or abdominal pain or fever. Plan: Recommended increasing propranolol to 20 mg twice daily, with caution regarding low blood pressure, dizziness vertigo, and increasing spironolactone from 50 mg to 100 mg/day after a few days, continuing same dose of diuretics. 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 Counseled regarding continuing alcohol abstinence, patient demonstrated understanding. (2) Pulmonary nodule: Status: Acute Assessment & Plan: Chest x-ray showed an incidental 4 mm pulmonary nodule in the right lung base which was done in September 2022. Repeat chest x-ray during previous hospitalization 08/30/2024 shows Stable pulmonary nodule right lower lobe compared with September 30, 2022 Plan: Stable pulmonary nodule, repeat chest imaging in 6 months. (3) Gastrointestinal bleeding: Status: Acute Qualifiers: GI bleed type/associated pathology: melena Qualified Code(s): K92.1 - Melena Assessment & Plan: History of GI bleed, secondary to cirrhosis, endoscopic band ligation was done during previous hospitalization. Hemoglobin 7.7 on discharge. Plan: Continue with Protonix and nonselective beta-luli therapy to reduce portal hypertension. Ideally patient should be on maximally tolerated beta-luli therapy, increase dose to 20 mg propranolol twice daily, will advise regarding monitoring for bradycardia and hypotension. Office Procedures [facility] Level of Care Nursing/Assessment Patient Status: Established Patient Nursing Assessment/Reassessment: Medication Reconciliation, Update PMH in EMR and Vital Signs Coordination of Care: Complex Care and Chronic Disease 1-5, Consent,records obtained, informed consent, Education Simp Pt/Fam and Staff clarify orders Established Patient Charge Established Patient Point Assignment: 85 Established Patient Point Charge: EP Level 3 (80-115)
== END 2024-09-13 11:54 | disposition home or self-care (01) ==
LOC: HODAHC 10:51
PROVIDERS: Supervising Provider Internal Medicine; Visit Provider Student in an Organized Health Care Education/Training Program
DX: K70.31 Alcoholic cirrhosis of liver with ascites (principal); K70.11 Alcoholic hepatitis with ascites; R91.1 Solitary pulmonary nodule; K92.1 Melena; K76.6 Portal hypertension
CPT/HCPCS: 99213; G0463

== ENCOUNTER 2024-09-18 09:49 | Inpatient (IN) | payer MEDICAID, SELFPAY ==
[2024-09-18] VITALS (8 sets, daily range): BP systolic 111–128; BP diastolic 60–82; PULSE 62–72; RESP 13–19; TEMP 35.9–36.6; O2SAT 99–100; BMI 25.0
--- NOTE | 2024-09-18 10:06 | PD.EDAMS ---
Altered Mental Status RME/HPI General Chief Complaint: Altered Mental Status Stated Complaint: AMS Time Seen by Provider: 09/18/24 10:11 Arrival date/time: 09/18/24 09:49 RME / HPI RME / HPI narrative: DR. RINALDI MAIN ED EVALUATION: This section includes all my notes and documentations, including HPI, PE, and ED course.? Fortino Rinaldi MD HPI: 44 year old male with past medical history significant for alcoholic liver cirrhosis presents to the Emergency Department [facility] with complaint of altered mental status onset 2 days, according to EMS. No other complaints reported. Per EMS, blood glucose was 145, blood pressure 124/82, and heart rate in the 70's. ROS: All negative except as documented in HPI. Physical Exam: General:? Alert and oriented.? No acute distress when remaining still.? Eyes:? Conjunctivae and lids clear. ENT:? No nasal congestion.? ? Neck:? Supple. Heart:? RRR. Lungs:? No respiratory distress.? Good air movement.? No rhonchi, wheezing, rales.? Abdomen:? Soft and nontender.? Legs:? No clubbing, cyanosis, edema. Skin:? Warm and dry.? Neuro:? Alert and oriented X 3.? I reviewed all diagnostic test results. My interpretation of the EKG is?Sinus rhythm (55 bpm) with nonspecific ST-T changes. My interpretation of the chest x-ray is My review of the CT report is?negative for acute hemorrhage, mass effect or midline shift Blood tests and urine tests At this point, diagnoses include Hepatic encephalopathy Treatment here included Diphenhydramine HCl 50 mg IV, Haloperidol Lactate 5 mg IV, Chloride, Lactulose 40 gm total, Rifaximin 550 mg PO Significant improvement I discussed the case with our hospitalist.? About the presentation and exam and diagnostics and treatments here.? And need of further care in the hospital. Will accept the patient. Fortino Rinaldi MD Related Data Previous Rx's ?Medication ?Instructions ?Recorded furosemide 40 mg tablet 40 mg PO QDAY 1 month #30 tabs 09/11/24 lactulose 20 gram/30 mL oral 30 g (45 mL) PO TID 1 month #4,050 09/11/24 solution mL midodrine 5 mg tablet 5 mg PO TID PRN if blood pressure 09/11/24 is less than 100/60 1 month #90 tabs nicotine 14 mg/24 hr daily 14 mg top QDAY #14 ea 09/11/24 transdermal patch pantoprazole 40 mg tablet,delayed 40 mg PO BID 1 month #60 tabs 09/11/24 release (Protonix) prednisone 20 mg tablet 10 mg PO QDAY #27 tabs 09/11/24 propranolol 10 mg tablet 10 mg PO BID 1 month #60 tabs 09/11/24 spironolactone 25 mg tablet 25 mg PO BID 1 month #60 tabs 09/11/24 Allergies Allergy/AdvReac Type Severity Reaction Status Date / Time No Known Allergies Allergy Verified 09/13/24 10:55 Course Quality Measures none Orders Category Date Time Status Bedside COVID-19 Antigen Test NOW Care 09/18/24 10:27 Active Bedside Influenza A&B Antigen Test NOW Care 09/18/24 10:27 Active COVID-19 Screening Questionnaire NOW Care 09/18/24 15:03 Active Decision to Admit X1 Care 09/18/24 15:03 Active EKG (ED ONLY) *Do not use* NOW Care 09/18/24 10:28 Completed [place] to [place] Routine Care 09/18/24 10:27 Ordered Saline [Insert IV] NOW Care 09/18/24 10:27 Active Consult to Gastroenterology Stat Cons 09/18/24 14:[address] chest abdomen pelvis wo Stat Exams 09/18/24 10:[address] head/brain wo con Stat Exams 09/18/24 10:28 Completed EKG (ED Only) Stat Exams 09/18/24 10:28 Ordered XR chest 1V portable Stat Exams 09/18/24 10:28 Completed ABG [Arterial Blood Gas] Stat Lab 09/18/24 10:28 Ordered Alcohol, Blood Medical Stat Lab 09/18/24 11:00 Completed Ammonia Stat Lab 09/18/24 11:00 Completed Amylase Stat Lab 09/18/24 11:00 Completed BMP [Basic Metabolic Panel] Stat Lab 09/18/24 11:00 Completed BNP [B-Type Natriuretic Peptide] Stat Lab 09/18/24 11:00 Completed Blood Culture (Lab) Stat Lab 09/18/24 10:54 Received CBC Stat Lab 09/18/24 11:00 Completed CK [Creatine Kinase] Stat Lab 09/18/24 11:00 Completed CRP [C-Reactive Protein] Stat Lab 09/18/24 11:00 Completed Drug Screen,Urine Stat Lab 09/18/24 14:10 Received ESR [Sed Rate (ESR)] Stat Lab 09/18/24 11:00 Completed Free T4 (Free Thyroxine) Stat Lab 09/18/24 11:00 Completed Lactate (Lactic Acid) Stat Lab 09/18/24 11:00 Completed Lactic Acid, 3 HR Stat Lab 09/18/24 14:24 Completed Lipase Stat Lab 09/18/24 11:00 Completed Liver Panel Stat Lab 09/18/24 11:00 Completed Magnesium Stat Lab 09/18/24 11:00 Completed PT [Prothrombin Time with INR] Stat Lab 09/18/24 11:00 Completed PTT [Partial Thromboplastin Time] Stat Lab 09/18/24 11:00 Completed Procalcitonin Stat Lab 09/18/24 11:00 Completed RSV [Respiratory Syncytial Virus Ag] Stat Lab 09/18/24 10:29 Ordered TSH [Thyroid Stimulating Hormone] Stat Lab 09/18/24 11:00 Completed Troponin I Stat Lab 09/18/24 11:00 Completed UA, C/S IF [Urinalysis, C/S if Indicated] Stat Lab 09/18/24 14:10 Received DiphenhydrAMINE INJ [Benadryl Inj] Med 09/18/24 10:19 Discontinued 50 mg IV X1 STA Haloperidol Lactate [Haldol Inj] Med 09/18/24 10:19 Discontinued 5 mg IV X1 ONE LORazepam [Ativan Inj] Med 09/18/24 11:31 Discontinued 2 mg IVP X1 ONE Lactulose Syrup [Enulose Syrup] Med 09/18/24 12:34 Discontinued 20 gm PO X1 ONE Lactulose Syrup [Enulose Syrup] Med 09/18/24 13:22 Discontinued 20 gm TX X1 ONE Thiamine Inj [Vitamin B-1 Inj] 100 mg Med 09/18/24 11:05 Discontinued Sodium Chloride 0.9% [Ns] 100 ml IV X1 rifaximin [Xifaxan] Med 09/18/24 14:59 Discontinued 550 mg PO X1 ONE Vital Signs Vital signs: Vital Signs Temperature 96.8 F 09/18/24 10:01 Pulse Rate 71 09/18/24 10:01 Respiratory Rate 19 09/18/24 10:01 Blood Pressure 124/68 09/18/24 10:01 Pulse Oximetry (%) 100 09/18/24 10:01 Altered Mental Status MDM Narrative MDM Narrative:: I, Karolyn Pena am scribing for and in the presence of Dr. Rinaldi. Patient data External records reviewed:: [facility] previous records (Reviewed last admission discharge dated 09/11/24, patient admitted for the following: Hyperbilirubinemia) and EMS form Clinical information provided by:: patient and EMS Social determinants that could affect healthcare access:: alcohol use Patient has the following chronic illnesses:: alcoholic liver cirrhosis How is presenting disease/condition affected by chronic disease/condition?: exacerbated by Evaluation data The following diagnostics were reviewed and interpreted by me:: lab results, radiology exam(s) and EKG tracing(s) (My interpretation of the EKG is: Sinus rhythm (55 bpm) with nonspecific ST-T changes. Fortino Rinaldi MD) Lab and/or radiology exams considered but not ordered:: none Interpretation Summary: Hepatic encephalopathy Medications / Prescriptions Medications or Prescriptions considered but not ordered:: none Medication administrations:: Medication Administration History Discontinued Medications Diphenhydramine HCl (Diphenhydramine Inj 50 Mg/Ml Vial) 50 mg IV X1 STA Stop: 09/18/24 10:20 Last Admin: 09/18/24 10:22 Dose: 50 mg Documented By: NABILA Haloperidol Lactate (Haloperidol Lact Inj 5 Mg/Ml Vial) 5 mg IV X1 ONE Stop: 09/18/24 10:20 Last Admin: 09/18/24 10:23 Dose: 5 mg Documented By: NABILA Comments: PRE DEVYN CHAU TO BE GIVEN IV Thiamine HCl 100 mg/ Sodium (Chloride) 101 mls @ 202 mls/hr IV X1 ONE Stop: 09/18/24 11:34 Last Infusion: 09/18/24 12:55 Dose: Infused Documented By: Admin: 09/18/24 12:06 Dose: 202 mls/hr Documented By: NABILA Lactulose (Lactulose Syrup 20 Gm/30 Ml Udc) 20 gm PO X1 ONE; Protocol Stop: 09/18/24 12:35 Last Admin: 09/18/24 13:25 Dose: Not Given Documented By: NABILA Non-Admin Reason: Cancelled by Provider Lactulose (Lactulose Syrup 20 Gm/30 Ml Udc) 20 gm TX X1 ONE; Protocol Stop: 09/18/24 13:23 Last Admin: 09/18/24 13:52 Dose: 20 gm Documented By: TONE Lorazepam (Lorazepam 2 Mg/Ml Vial) 2 mg IVP X1 ONE Stop: 09/18/24 11:32 Last Admin: 09/18/24 11:54 Dose: 2 mg Documented By: NABILA Rifaximin (Rifaximin 550 Mg Tablet) 550 mg PO X1 ONE Stop: 09/18/24 15:00 Diphenhydramine HCl 50 mg IV, Haloperidol Lactate 5 mg IV, Chloride, Lactulose 40 gm total, Rifaximin 550 mg PO Consultations Consultation(s) initiated? (list below): Yes Diagnosis Differential diagnosis altered mental status: altered mental status, dementia, hypoglycemia and subarachnoid hemorrhage Most likely diagnosis given after review of the tests above:: Hepatic encephalopathy Admission Indicated Admission indicated?: indicated Admission Request Was there a request for admission?: Yes Admission Attestation Admission request attestation: Discussed case with [] from Hospitalist service regarding admission. Discussed patients ED course, exam findings, labs, and radiology results. The Hospitalist [agrees,declines] to accept the patient for admission. Disposition Plan Disposition Plan: Admit Discharge Plan Plan Patient Disposition: Admit Acute Care w/in Hospital Prescriptions/Referrals Prescriptions/Med Rec: No Action lactulose 20 gram/30 mL Solution 30 g PO TID 30 Days Qty: 4050 0RF midodrine 5 mg Tablet 5 mg PO TID PRN (Reason: if blood pressure is less than 100/60) 30 Days Qty: 90 0RF nicotine 14 mg/24 hr Patch 24 Hour 14 mg top QDAY Qty: 14 0RF prednisone 20 mg Tablet 10 mg PO QDAY Qty: 27 0RF Taper: Prednisone Taper 30 mg DAILY for 2 Days and 0 Hour 20 mg DAILY for 7 Days and 0 Hour 10 mg DAILY for 7 Days and 0 Hour spironolactone 25 mg Tablet 25 mg PO BID 30 Days Qty: 60 0RF propranolol 10 mg Tablet 10 mg PO BID 30 Days Qty: 60 0RF furosemide 40 mg tablet 40 mg PO QDAY 30 Days Qty: 30 0RF pantoprazole [Protonix] 40 mg tablet,delayed release (DR/EC) 40 mg PO BID 30 Days Qty: 60 0RF Referrals: No Primary/Family,Physician [Primary Care Provider] - In 1 week Problem List Clinical Impression: Hepatic encephalopathy Patient/Caregiver Discharge Instructions Print Language: Armenian Stand Alone Forms: Ella Award Info., Patient Portal Info Letter
[2024-09-18] MEDS: DiphenhydrAMINE INJ 50 MG/ML VIAL IV (10:22)
[2024-09-18] MEDS: HALOPERIDOL LACT INJ 5 MG/ML VIAL IV (10:23)
--- NOTE | 2024-09-18 10:27 | XR_ITS ---
Examination: CT chest, without intravenous contrast. CT abdomen, without intravenous contrast. CT pelvis, without intravenous contrast. 2-D sagittal and coronal reconstructions. 3-D reconstructions. Date and time of exam:September 18, 2024 1249 hours Comparison August 30, 2024 INDICATIONS: Onset chest abdominal pain today, cirrhosis, ascites, portal hypertension esophageal varices on CT abdomen pelvis August 30, 2024 CTDI vol (mgy) 13.4 DLP (MGycm)1034 Technique: Multiple CT images, 3.0 mm slice thickness, obtained chest, abdomen, pelvis, with the high-resolution 64 slice scanner.. Sagittal and coronal 2-D reconstructions are obtained. 3-D reconstructions Low dose protocols were performed. One or more of the following dose reduction techniques were used; automated exposure control, adjustment of the mA and/or KV according to patient size, use of iterative reconstruction technique. Findings: Mild to moderate enlargement cardiac contour No thoracic aneurysm dilatation Pulmonary artery segments are not enlarged No paratracheal tracheobronchial or bronchopulmonary adenopathy Calcified 10 mm granuloma in the right middle lobe Prominent vascular congestion, no lobar pneumonia Cirrhosis, liver nodular in contour Mild to moderate ascites Splenomegaly 15 cm Esophageal varices Perigastric varices Portosystemic collateral vessels medial to the spleen No pancreatic mass Significant scarring and atrophy left kidney with mild left hydronephrosis No renal or ureteral calculi Aorta normal size Diffuse wall thickening of the colon and small bowel No bowel obstruction No diverticulitis Distended urinary bladder No prostatomegaly Moderate osteopenia IMPRESSION: Prominent vascular congestion, no edgar pulmonary edema Negative for pneumonia Cirrhosis Esophageal and perigastric varices Significant splenomegaly Mild to moderate ascites Significant scarring and atrophy left kidney with mild left hydronephrosis No renal or ureteral calculi Hepatic colopathy enteropathy pattern
--- NOTE | 2024-09-18 10:28 | XR_ITS ---
Examination: CT brain head without contrast. 2-D sagittal coronal reconstructions Date and time of exam:September 18, 2024 12:48 PM INDICATIONS: Altered mental status today CTDI: vol (mGy):52.9 DLP: (mGycm):1090 Technique: Multiple CT axial sections of the brain have been obtained, 5 mm slice thickness. Contrast has not been administered. 2-D sagittal, coronal reconstructions have been obtained Low dose protocols were performed. One or more of the following dose reduction techniques were used; automated exposure control, adjustment of the mA and/or KV according to patient size, use of iterative reconstruction technique. Findings: No significant ventricular enlargement. 4 mm calcification posterior right parietal lobe Intra-axial or extra-axial hemorrhage density is not seen. No mass effect or midline shift Basal cisterns are not remarkable. Fourth ventricle is midline. Cranial vault intact. Impression: Negative for acute hemorrhage, mass effect or midline shift If symptoms persist, consider brain MRI follow-up
--- NOTE | 2024-09-18 10:28 | EKG_ITS ---
[facility] Test Date: 2024-09-18 Pat Name: LORNA PATINO Department: Room: - Gender: Male Central Processing Tech: : 1980 Requested By: Fortino Angel Order Number: [id number] Reading MD: Fortino Angel Measurements Intervals [place] Rate: 57 P: 60 [place]: 140 QRS: 50 QRSD: 109 T: 39 QT: 520 QTc: 509 Interpretive Statements SINUS BRADYCARDIA PROLONGED QT INTERVAL CRITICAL TEST RESULT Compared to ECG 08/03/2024 22:03:39 Prolonged QT interval now present Sinus tachycardia no longer present T-wave abnormality no longer present /store/S0/[id number]/ecg/[id number].pdf
--- NOTE | 2024-09-18 10:28 | XR_ITS ---
Examination: AP chest single view Technique one AP portable upright chest single view Exam date and time: September 18, 2024 1032 hours Comparison August 30, 2024 INDICATIONS: Shortness of breath today. FINDINGS: Poor inspiratory effort No lobar pneumonia The osseous structures are intact IMPRESSION: Poor inspiratory effort chest x-ray
[2024-09-18 11:08] LABS: Lactate (Lactic Acid) 3.5 mMol/L (0.4-2.0)
[2024-09-18 11:12] LABS: Basophils % (Auto) 0 % (0-2.5); Eosinophils % (Auto) 0 % (0-10); Hematocrit 26.9 % (41.0-53.0); Immature Granulocytes % (Auto) 1 % (0-0); Immature Granulocytes Auto 0.17 Thou/mm3 (0.00-0.00); Lymphocytes # (Auto) 0.4 Thou/mm3 (1.0-4.8); Lymphocytes % (Auto) 3 % (10-50); Mean Corpuscular HGB Conc 32.3 g/dl (31.0-37.0); Mean Corpuscular Hemoglobin 27.5 pg (25.0-35.0); Mean Corpuscular Volume 85 fL (80-100); Monocytes # (Auto) 0.3 Thou/mm3 (0.0-0.8); Monocytes % (Auto) 2 % (0-12); Neutrophils # (Auto) 13.6 Thou/mm3 (1.8-7.7); Neutrophils % (Auto) 94 % (37-80); Nucleated Red Blood Cell % 0 /100 WBC (0); Platelet Count 122 Thou/mm3 (140-440); RDW Standard Deviation 79.2 fL (35.1-43.9); Red Blood Count 3.16 Miln/mm3 (4.50-5.90); White Blood Count 14.5 Thou/mm3 (3.8-10.6)
[2024-09-18 11:25] LABS: Partial Thromboplastin Time 40.3 Seconds (22.0-36.0); Prothrombin Time 20.9 Seconds (9.0-12.2)
[2024-09-18 11:29] LABS: Ammonia 126 uMol/L (11-32)
[2024-09-18 11:34] LABS: Sed Rate (ESR) 12 mm/hr (0-15)
[2024-09-18 11:49] LABS: Alanine Aminotransferase 134 U/L (10-49); Albumin, Serum 2.8 gm/dL (3.5-5.0); Alcohol, Blood Medical < 3.0 mg/dL (0-10.0); Alkaline Phosphatase 104 U/L (46-116); Amylase 61 U/L (30-118); Anion Gap 13 (7-16); Aspartate Amino Transferase 98 U/L (0-34); BUN/Creatinine Ratio 36 Ratio (12-20); Bilirubin,Direct > 15.0 mg/dL (0.0-0.3); Blood Urea Nitrogen 36 mg/dL (9-23); C-Reactive Protein 1.6 mg/dL (0.0-0.9); Calcium 8.1 mg/dL (8.3-10.6); Carbon Dioxide 19.3 mMol/L (20.0-31.0); Chloride 109 mMol/L (98-107); Creatine Kinase 54 U/L (34-171); Estimated Creatinine Clearance 81.1 mL/min (>60); Glucose 136 mg/dL (74-106); Hemoglobin 8.7 g/dL (13.5-16.0); Lipase 45 U/L (12-53); Magnesium 2.1 mg/dL (1.6-2.6); Osmolality,Calculated 291 (275-295); Potassium 3.6 mMol/L (3.4-5.1); Procalcitonin 1.13 ng/ml (0.0-0.49); Sodium 141 mMol/L (136-145); Thyroid Stimulating Hormone 0.12 uIU/mL (0.55-4.78); Total Protein 6.7 gm/dL (5.7-8.2); Troponin I < 0.020 ng/mL (0.0-0.045); eGFR > 60 See Note
[2024-09-18] MEDS: LORazepam 2 MG/ML VIAL IVP (11:54)
[2024-09-18 12:04] LABS: B-Type Natriuretic Peptide 274 pg/mL (0-100)
[2024-09-18] MEDS: THIAMINE INJ 100 MG in SODIUM CHLORIDE 0.9% 100 ML 202 MG IV (12:06)
[2024-09-18 12:42] LABS: Bilirubin,Total 24.9 mg/dL (0.3-1.2)
[2024-09-18] MEDS: LACTULOSE SYRUP 20 GM/30 ML UDC PR (13:52)
[2024-09-18 14:05] LABS: Reflex Lactate? Y
[2024-09-18 14:44] LABS: Collection Type, Urine Clean Catch
[2024-09-18 14:52] LABS: Free T4 (Free Thyroxine) 0.97 ng/dL (0.89-1.76)
[2024-09-18 15:21] LABS: Amphetamine/Methamp Scrn,U Negative (Negative); Barbiturate Screen,Urine Negative (Negative); Benzodiazepines Screen,Urine Negative (Negative); Benzoylecgonine Screen, Ur Negative (Negative); Fentanyl Screen,Urine Negative (Negative); Opiate Screen,Urine Negative (Negative); THC Screen,Urine Negative (Negative)
[2024-09-18 15:24] LABS: Bacteria,Urine Rare; Bilirubin,Urine 2+ (Negative); Blood,Urine 1+ (Negative); Clarity,Urine Clear (Clear/Hazy); Color,Urine Drk-Yellow (Lt Yel-Yel); Culture Indicated,Urine Not Indicated; Glucose, Urine Negative (Negative); Ketones,Urine Negative (Negative); Leukocyte Esterase,Urine Negative (Negative); Nitrite,Urine Negative (Negative); Protein,Urine Negative (Neg - Trace); RBC,Urine 8 /hpf (0-3); Specific Gravity,Urine 1.011 (1.001-1.035); Squamous Epithelial Cell,Urine < 1 /hpf (0-5); Transitional Epi Cells,Urine < 1 /hpf (0-5); Urobilinogen,Urine Negative mg/dL (0.0-1.0); WBC,Urine 2 /hpf (0-5)
--- NOTE | 2024-09-18 16:16 | PC.CC ---
SUPPLY AIDE student attempted to complete initial assessment patient was asleep.
--- NOTE | 2024-09-18 16:28 | ESHP_ITS ---
<Statement entered by Hattie Goins MD - 09/18/24 17:44> I discussed with and supervised the commercial intern physician who took care of this patient. I personally saw and examined the patient and discussed the assessment and plan with the entire medicine team, including my attending Dr. Soliz I agree with the assessment and plan as documented below Patient seen and examined at bedside today. Labs and imaging reviewed. 44-year-old man with past medical history of cirrhosis secondary to alcohol use disorder, esophageal varices status post banding, who came to the ED brought by ambulance due to altered mental status. Per patient family member sister at the bedside he stated that patient was altered at home being aggressive, delusional for which she decided to bring him to the hospital. On admission labs were significant for leukocytosis 14.5 hemoglobin of 8.7, lactic acid 4.0 INR 2.0, T. bili 24.9 transaminitis and hyperammonemia 126. CT chest abdomen pelvis showed cirrhosis with esophageal varices and perigastric varices, splenomegaly and mild to moderate ascites and 10 mm calcified granuloma. At the ED patient received Haldol, Ativan, Benadryl. Patient will be admitted for further treatment and management of acute metabolic encephalopathy most likely secondary to hyperammonemia in alcohol induced cirrhosis. Hattie Goins MD PGY-3 Disclaimer: Despite multiple revisions, due to the dictation software being used, the document bellow may not be free of grammatical errors including phonetic/typographic errors. However, this does not deter from our commitment to providing health care in the patient's best interest in mind. Documentation for date of: 09/18/24 HPI History of Present Illness Chief complaint: AMS, agitation History of present illness: 44 y/o M with PMHx significant for cirrhosis, history of variceal bleeding s/p banding presents to ED with chief complaint of agitation and altered mental status. Patient attended home exam, history taken from chart review and sister at bedside. Patient was in his usual state of health until yesterday morning, became increasingly agitated. Per sister at bedside, patient began hallucinating, throwing morning after he failed to improve overnight. He is also had increasing jaundice during this time. No reports of patient having nausea, vomiting, fever, chills, abdominal pain. ED COURSE: Labs significant for: WBC 14.5, hemoglobin 8.7, platelets 122. BUN 36, creatinine 1.0, EGFR greater than 60. Lactic acid 4.0. INR 2.0. Alcohol levels negative. U tox negative. T. bili 24.9, AST 98, ALT 134, ALP 104, albumin 2.8. Ammonia 126. Imaging significant for: Chest x-ray and CT head unremarkable. CT C/A/P: Vascular congestion, cirrhosis with esophageal and perigastric varices, splenomegaly, mild to moderate ascites. 10 mm calcified granuloma. Patient received lactulose 20 g x 1, thiamine, Haldol, Ativan, diphenhydramine in the ED. Patient was extremely agitated prior to Haldol, Ativan, diphenhydramine, afterwards was obtunded. PMH: Alcoholic cirrhosis, variceal bleeding s/p banding PSH: None. SH: Alcohol use. Active smoker per family. Allergies:?None. Medications: Lasix, lactulose, midodrine, Protonix, prednisone, propranolol, spironolactone Review of Systems Review of Systems ROS Unobtainable: other (Sedation) Past Medical History Past Medical History Comments PMH COMMENT: PMH: Alcoholic cirrhosis, variceal bleeding s/p banding PSH: None. SH: Alcohol use. Active smoker per family. Allergies:?None. Medications: Lasix, lactulose, midodrine, Protonix, prednisone, propranolol, spironolactone Exam Vital Signs Temp Pulse Resp BP Pulse Ox O2 Del Method 97.0 F 62 13 117/75 100 Room Air 09/18/24 14:18 09/18/24 14:18 09/18/24 14:18 09/18/24 14:18 09/18/24 14:18 09/18/24 14:18 Narrative Exam PE: Gen: Well-developed and well-nourished. Jaundiced. HEENT: NCAT, PERRLA, EOMI, MMM. Scleral icterus. CVS: normal S1 and S2. RRR. No M/R/G. Resp: CTA B/L. No rhonchi, rales, crackles or wheezing. Abd: soft, non-tender. Abdominal distention, positive fluid wave. MSK: Good ROM in BUE & BLE. No rash. Trace edema BLE. Neuro: Obtunded due to sedation. Results: Labs 09/19/24 04:53 09/19/24 04:53 Labs: Short CBC 09/18/24 Range/Units 11:00 WBC 14.5 H (3.8-10.6) Thou/mm3 Hgb 8.7 L (13.5-16.0) g/dL Hct 26.9 L (41.0-53.0) % Plt Count 122 L D (140-440) Thou/mm3 BMP 09/18/24 11:00 Sodium 141 Potassium 3.6 Chloride 109 H Carbon Dioxide 19.3 L BUN 36 H Creatinine 1.0 Glucose 136 H Calcium 8.1 L Cardiac Enzymes 09/18/24 Range/Units 11:00 Total Creatine Kinase 54 (34-171) U/L Troponin I < 0.020 (0.0-0.045) ng/mL Liver Function 09/18/24 Range/Units 11:00 Total Bilirubin 24.9 H* (0.3-1.2) mg/dL Direct Bilirubin > 15.0 H (0.0-0.3) mg/dL AST 98 H (0-34) U/L ALT 134 H (10-49) U/L Alkaline Phosphatase 104 (46-116) U/L Albumin 2.8 L (3.5-5.0) gm/dL Urine 09/18/24 Range/Units 14:10 Urine Color Drk-Yellow A (Lt Yel-Yel) Urine Clarity Clear (Clear/Hazy) Urine pH 7.0 (5.0-7.0) Ur Specific [place] 1.011 (1.001-1.035) Urine Protein Negative (Neg - Trace) Urine Glucose (UA) Negative (Negative) Quality Measures Quality Measures VTE prophylaxis Medications Home Medications and Allergies Allergies Allergy/AdvReac Type Severity Reaction Status Date / Time No Known Allergies Allergy Verified 09/13/24 10:55 Visit Medications Acetaminophen (Acetaminophen Supp 650 Mg Supp) 650 mg TN Q6HR PRN PRN Reason: Fever > 100.4 or pain Stop: 10/18/24 16:01 Ceftriaxone Sodium 1,000 mg/ (Sodium Chloride) 50 mls @ 100 mls/hr IV QDAY CATHY Stop: 09/25/24 16:11 Lactated Ringer's (Lactated Ringers) 1,000 mls @ 999 mls/hr IV .Q1H1M ONE Stop: 09/18/24 17:13 Lactulose (Lactulose Syrup 10 Gm/15 Ml) 200 gm TN Q8HR CATHY Stop: 10/18/24 16:14 Lorazepam (Lorazepam 2 Mg/Ml Vial) 0.5 mg IVP Q4H PRN PRN Reason: CIWA score 2-6 Stop: 09/23/24 16:06 Lorazepam (Lorazepam 2 Mg/Ml Vial) 1 mg IVP Q4H PRN PRN Reason: CIWA score 7-11 Stop: 09/23/24 16:06 Lorazepam (Lorazepam 2 Mg/Ml Vial) 2 mg IVP Q4H PRN PRN Reason: CIWA score 12-15 Stop: 09/23/24 16:06 Ondansetron HCl (Ondansetron Inj 2 Mg/Ml Inj 2 Ml) 4 mg IV Q6H PRN; Protocol PRN Reason: NAUSEA OR VOMITING Stop: 10/18/24 16:01 Pantoprazole Sodium (Pantoprazole Inj 40 Mg Vial) 40 mg IVP Q12HR CATHY Stop: 10/18/24 20:59 Rifaximin (Rifaximin 550 Mg Tablet) 550 mg PO BID CATHY Stop: 09/26/24 08:59 Discontinued Medications Diphenhydramine HCl (Diphenhydramine Inj 50 Mg/Ml Vial) 50 mg IV X1 STA Stop: 09/18/24 10:20 Last Admin: 09/18/24 10:22 Dose: 50 mg Haloperidol Lactate (Haloperidol Lact Inj 5 Mg/Ml Vial) 5 mg IV X1 ONE Stop: 09/18/24 10:20 Last Admin: 09/18/24 10:23 Dose: 5 mg Thiamine HCl 100 mg/ Sodium (Chloride) 101 mls @ 202 mls/hr IV X1 ONE Stop: 09/18/24 11:34 Last Infusion: 09/18/24 12:55 Dose: Infused Lactulose (Lactulose Syrup 20 Gm/30 Ml Udc) 20 gm PO X1 ONE; Protocol Stop: 09/18/24 12:35 Last Admin: 09/18/24 13:25 Dose: Not Given Lactulose (Lactulose Syrup 20 Gm/30 Ml Udc) 20 gm TN X1 ONE; Protocol Stop: 09/18/24 13:23 Last Admin: 09/18/24 13:52 Dose: 20 gm Lorazepam (Lorazepam 2 Mg/Ml Vial) 2 mg IVP X1 ONE Stop: 09/18/24 11:32 Last Admin: 09/18/24 11:54 Dose: 2 mg Rifaximin (Rifaximin 550 Mg Tablet) 550 mg PO X1 ONE Stop: 09/18/24 15:00 Assessment & Plan Plan 44 y/o M with PMHx significant for cirrhosis, history of variceal bleeding s/p banding presents to ED with chief complaint of agitation and altered mental status, admitted for acute hepatic encephalopathy. #Acute hepatic encephalopathy #Alcoholic cirrhosis #Esophageal varices s/p banding Patient presented with complaints of altered mental status and agitation x 1 day. Patient is history of hepatic cephalopathy in the past, per family taking medications as prescribed. On admission, patient labs significant for ammonia 126, bilirubin 24.9, lactic acid 4.0, INR 2.0, albumin 2.8. U tox negative, alcohol levels negative. CT C/A/P showed signs of vascular congestion, cirrhosis with varices and splenomegaly, mild to moderate ascites. In the ED patient received Ativan, Haldol, diphenhydramine due to agitation. Patient currently obtunded due to sedation. Patient currently on steroids at home, will begin taper. -Lactulose enema -Will start rifaximin when not n.p.o. -Telemetry -Will give 1 L bolus LR, recheck lactate. -GI consulted, appreciate recommendations -Will consider resuming home meds as appropriate -Solu-Medrol 1 mg IV daily -Consider paracentesis eval tomorrow #Granuloma incidental finding CT showed incidental finding of 10 mm calcified granuloma. No previous CT on file to compare to. Notes indicate nodule monitored on chest x-ray outpatient. -Cocci tests ordered, follow-up -Follow-up outpatient DVT prophylaxis: SCDs GI prophylaxis: Protonix IV twice daily Diet: N.p.o. Lines: Peripheral IV Code status: Full code Plan of care discussed with senior resident Dr. Goins PGY?[address] Soliz. Scott Munguia MD PGY?1 Attending Provider Attestation/Addendum Netta Root, DO, attest that I was physically present for the cisneros portions of the service and evaluated the patient with the resident and I reviewed and discussed the case with the resident and agree with the resident's findings and plans of care as documented above Patient is a 44-year-old female with past medical history of alcoholic cirrhosis and variceal bleeding who was brought to the ED due to worsening mental status. Patient has been more confused and agitated. Upon evaluation in the ED, patient was noted to have an ammonia level of 126. Per family, patient has been compliant with his medications. Patient was recently discharged from the hospital for anasarca requiring IV diuresis. Patient had apparently started exhibiting unusual behavior this morning. Patient was agitated, but drowsy due to medications as he received Benadryl, Haldol and Ativan in the ED. Patient appears to have facial edema and 2+ pitting edema bilateral lower extremities. Abdomen is distended, but not tender to palpation or firm. History was limited due to patient's mental status. is at bedside and unable to provide much of history. Will admit patient to telemetry and start on lactulose TN due to hepatic encephalopathy. GI was also consulted from ED. Increase liver enzymes likely due to chronic liver dysfunction. Will start tapering prednisone as well as patient has been on prednisone since his first admission earlier in the year. Will transition to p.o. meds once patient is more alert. Will hold off on NG tube at this time as CT abdomen and pelvis shows prominent vascular congestion, esophageal and perigastric varices, significant splenomegaly, mild to moderate ascites and hepatic colopathy. Will give patient 1 dose of IV Lasix as well due to hypervolemia. Will also place on rocephin for SBP prophylaxis.
[2024-09-18] MEDS: cefTRIAXone 1,000 MG in SODIUM CHLORIDE 0.9% (Popper) 50 ML 100 MG IV (16:47)
[2024-09-18] MEDS: RINGERS LACTATED 1000 ML 1,000 ML 999 ML IV (17:23)
[2024-09-18 17:29] LABS: Lactate (Lactic Acid) 2.9 mMol/L (0.4-2.0)
[2024-09-18] MEDS: LACTULOSE SYRUP 10 GM/15 ML 200 GM PR ×2 (18:18→21:25)
[2024-09-18 20:24] LABS: Reflex Lactate? Y
[2024-09-18] MEDS: PANTOPRAZOLE INJ 40 MG VIAL IVP (20:45)
[2024-09-18] MEDS: FUROSEMIDE INJ 10 MG/ML 4ML VIAL 40 MG IVP (20:45)
[2024-09-18 21:48] LABS: Lactic Acid, 3 HR 2.4 mMol/L (0.4-2.0)
--- NOTE | 2024-09-18 22:29 | PD.IMCONS ---
HPI Data of Consult Requesting Physician: Netta Soliz DO Primary Care Provider: Physician No Primary/Family Consult Narrative Reason for consult: Altered mental status History of present illness: 44 years old male evaluated request of the ER physician with altered mental status and abnormal liver function test Ammonia level is 108 Total bilirubin 24.9 with AST ALT 15 and [address] scan of the chest abdomen pelvis shows perigastric varices and esophageal varices with cirrhosis of the liver alcohol induced No history is obtainable from the patient Patient does have a history of band ligation of the esophageal varices cc:: cc: Netta Soliz DO Review of Systems Review of Systems ROS Unobtainable: unobtainable due to medical condition Past Medical History Surgical History OTHER SURGICAL HX: As in the history of present illness Meds Home Medications and Allergies Allergies Allergy/AdvReac Type Severity Reaction Status Date / Time No Known Allergies Allergy Verified 09/13/24 10:55 Exam Vital Signs Temp Pulse Resp BP Pulse Ox O2 Del Method 96.7 F L 70 18 111/60 100 Room Air 09/18/24 20:00 09/18/24 20:45 09/18/24 20:00 09/18/24 20:45 09/18/24 20:00 09/18/24 20:00 Constitutional Comments: Chronically ill-appearing Routine Respiratory Exam Comments: Normal to auscultation Routine Abdominal Exam Comments: Positive for ascites Results Labs 09/18/24 11:00 09/18/24 11:00 Labs: Short CBC 09/18/24 Range/Units 11:00 WBC 14.5 H (3.8-10.6) Thou/mm3 Hgb 8.7 L (13.5-16.0) g/dL Hct 26.9 L (41.0-53.0) % Plt Count 122 L D (140-440) Thou/mm3 BMP 09/18/24 11:00 Sodium 141 Potassium 3.6 Chloride 109 H Carbon Dioxide 19.3 L BUN 36 H Creatinine 1.0 Glucose 136 H Calcium 8.1 L Cardiac Enzymes 09/18/24 Range/Units 11:00 Total Creatine Kinase 54 (34-171) U/L Troponin I < 0.020 (0.0-0.045) ng/mL Liver Function 09/18/24 Range/Units 11:00 Total Bilirubin 24.9 H* (0.3-1.2) mg/dL Direct Bilirubin > 15.0 H (0.0-0.3) mg/dL AST 98 H (0-34) U/L ALT 134 H (10-49) U/L Alkaline Phosphatase 104 (46-116) U/L Albumin 2.8 L (3.5-5.0) gm/dL Urine 09/18/24 Range/Units 14:10 Urine Color Drk-Yellow A (Lt Yel-Yel) Urine Clarity Clear (Clear/Hazy) Urine pH 7.0 (5.0-7.0) Ur Specific [place] 1.011 (1.001-1.035) Urine Protein Negative (Neg - Trace) Urine Glucose (UA) Negative (Negative) Assessment and Plan Additional Assessment & Plan Additional Plan: # Acute hepatic encephalopathy trial of lactulose and Xifaxan # Esophageal and perigastric varices Last admission patient had a EGD with band ligation of the esophageal varices Before discharge patient should have another endoscopy for further band ligation of the esophageal varices as evidenced by the CT scan findings of the chest abdomen and pelvis # Cirrhotic liver disease Will speak with case management about hospitalist under his insurance are available for him to be evaluated for a possible liver transplant My particular interest would be [facility] or [facility] to see if they are covered under his insurance then I will make those phone calls to get in there Prognosis guarded thank you for the opportunity to participate in the care of this patient
[2024-09-19] VITALS (10 sets, daily range): BP systolic 94–123; BP diastolic 60–80; PULSE 55–87; RESP 14–21; TEMP 35.9–36.8; O2SAT 98–100; BMI 26.5
[2024-09-19 02:33] LABS: Respiratory Syncytial Virus Ag Negative (Negative)
[2024-09-19 05:57] LABS: Basophils % (Auto) 0 % (0-2.5); Eosinophils % (Auto) 0 % (0-10); Hematocrit 26.6 % (41.0-53.0); Immature Granulocytes % (Auto) 1 % (0-0); Lymphocytes # (Auto) 0.5 Thou/mm3 (1.0-4.8); Lymphocytes % (Auto) 3 % (10-50); Mean Corpuscular HGB Conc 32.7 g/dl (31.0-37.0); Mean Corpuscular Hemoglobin 27.8 pg (25.0-35.0); Mean Corpuscular Volume 85 fL (80-100); Monocytes # (Auto) 0.7 Thou/mm3 (0.0-0.8); Monocytes % (Auto) 5 % (0-12); Neutrophils # (Auto) 13.3 Thou/mm3 (1.8-7.7); Neutrophils % (Auto) 91 % (37-80); Nucleated Red Blood Cell % 0 /100 WBC (0); Platelet Count 125 Thou/mm3 (140-440); RDW Standard Deviation 80.6 fL (35.1-43.9); Red Blood Count 3.13 Miln/mm3 (4.50-5.90); White Blood Count 14.6 Thou/mm3 (3.8-10.6)
[2024-09-19 06:09] LABS: Hemoglobin 8.7 g/dL (13.5-16.0)
[2024-09-19 06:34] LABS: Alanine Aminotransferase 121 U/L (10-49); Albumin, Serum 2.3 gm/dL (3.5-5.0); Albumin/Globulin Ratio 0.7 (1.2-2.2); Alkaline Phosphatase 93 U/L (46-116); Anion Gap 12 (7-16); Aspartate Amino Transferase 94 U/L (0-34); BUN/Creatinine Ratio 37 Ratio (12-20); Blood Urea Nitrogen 37 mg/dL (9-23); Calcium (Corrected) 9.4 mg/dL (8.5-10.1); Carbon Dioxide 20.4 mMol/L (20.0-31.0); Chloride 110 mMol/L (98-107); Cholesterol 108 mg/dL (132-200); Estimated Creatinine Clearance 81.1 mL/min (>60); Globulin 3.5 gm/dL (2.3-3.5); Glucose 124 mg/dL (74-106); HDL Cholesterol < 5 mg/dL (40-60); LDL Cholesterol,Calculated 78 mg/dL (0-130); Magnesium 2.3 mg/dL (1.6-2.6); Osmolality,Calculated 292 (275-295); Phosphorous 5.4 mg/dL (2.4-5.1); Potassium 3.3 mMol/L (3.4-5.1); Sodium 142 mMol/L (136-145); Total Protein 5.8 gm/dL (5.7-8.2); Triglycerides 125 mg/dL (30-150); eGFR > 60 See Note
[2024-09-19] MEDS: LACTULOSE SYRUP 10 GM/15 ML 200 GM PR (06:47)
[2024-09-19 06:56] LABS: Bilirubin,Total 21.6 mg/dL (0.3-1.2)
[2024-09-19] MEDS: cefTRIAXone 1,000 MG in SODIUM CHLORIDE 0.9% (Popper) 50 ML 100 MG IV (08:38)
[2024-09-19] MEDS: PANTOPRAZOLE INJ 40 MG VIAL IVP ×2 (08:39→20:22)
[2024-09-19] MEDS: rifaximin 550 MG TABLET PO ×2 (08:40→20:27)
[2024-09-19] MEDS: MIDODRINE 5 MG TABLET PO ×3 (09:52→22:36)
--- NOTE | 2024-09-19 11:21 | PC.SS ---
SS spoke to patient's sister, Marianna re: patient history. Patient is altered. Admitted for hepatic encephalopathy. Patient is from home and resides with mother and girlfriend. Patient has a long history with alcohol abuse. Patient's sister states her brother is weak at home and uses a walker. His girlfriend assists him and all his ADL's. Patient's sister, Marianna, states patient did not have a PCP. He was seeing Dr. Orozco for o/p services. Sister thought the last time he was drinking alcohol may have been in July. SS inquired if patient was previously at any alcohol rehab program and he was not. She wants resources for AA, out patient rehab and in patient rehab services. SS will provide to patient and family. Patient has been in our hospital for numerous visits. Sister was hopeful that patient would be referred to [facility] or [facility] for further workup for liver disease. SS will provide a list of resources. Sister also asked about in patient rehab for PT. Patient will need a PT eval. Patient's insurance will require authorization. SS will provide a list of transportation resources as well. Sister will remain the alt medical decision maker.
--- NOTE | 2024-09-19 11:52 | XR_ITS ---
Examination: Abdomen sonogram, Limited Date and time of exam: September 19, 2024 1250 hrs. Indications: Abdominal distention this week, clinical diagnosis ascites Technique: Real-time machado scale transabdominal sonographic images of the upper abdomen obtained. Findings: Mild ascites Impression: Mild ascites
[2024-09-19 12:59] LABS: Cocci Serology, IgM Positive (Negative)
[2024-09-19 13:01] LABS: Cocid Sro, CF/ID (UCD) NO CHG* See Sep Rpt
[2024-09-19] MEDS: OCTREOTIDE ACET INJ 1,000 MCG in SODIUM CHLORIDE 0.9% 100 ML 5.1 MCG IV (13:04)
[2024-09-19] MEDS: LACTULOSE SYRUP 20 GM/30 ML UDC 30 GM PO ×2 (14:16→22:38)
[2024-09-19] MEDS: FUROSEMIDE INJ 10 MG/ML VIAL 2 ML 20 MG IVP (14:49)
--- NOTE | 2024-09-19 15:17 | PC.SS ---
Rounding: Continue Lactulose, pending ID consult
--- NOTE | 2024-09-19 15:46 | ESPR_ITS ---
<Statement entered by Hattie Goins MD - 09/19/24 17:12> I discussed with and supervised the procurement internship physician who took care of this patient. I personally saw and examined the patient and discussed the assessment and plan with the entire medicine team, including my attending Dr. Soliz, I agree with the assessment and plan as documented below Patient seen and examined at bedside today. Labs and imaging reviewed. No overnight events This morning at the bedside patient is AO x 3, mentation baseline, endorse that he is feeling well, denying any acute complaints at the moment, we will start lactulose 30 g 4 times daily p.o., IV octreotide, and per gastroenterology recommendations will have EGD for previous history of esophageal varices, ultrasound-guided paracentesis was ordered otherwise was not any fluid to drain. Physical therapy was ordered as well as midodrine 5 mg 3 times daily and we will start IV Lasix 20 mg daily and in case blood pressure does not tolerate we will increase the dose of midodrine to 10 mg p.o. 3 times daily. IgM cocci serology was positive for which we will start fluconazole 400 mg p.o. daily and we will continue to monitor closely liver enzymes. Case management is following up the case. Hattie Goins MD PGY-3 Disclaimer: Despite multiple revisions, due to the dictation software being used, the document bellow may not be free of grammatical errors including phonetic/typographic errors. However, this does not deter from our commitment to providing health care in the patient's best interest in mind. Documentation for date of: 09/19/24 Subjective Subjective Interval history: No overnight events. Patient seen and examined at bedside, significantly proved. Patient alert and appropriately responsive. Patient states she has poor memory of events leading to admission, recalls feeling angry and very hungry. Patient had 1 bowel movement. Switch to p.o. lactulose. Add octreotide and fluid restriction. Add midodrine. GI following, planning EGD at some point. Patient cocci positive, fluconazole initiated. Exam Vital Signs Temp Pulse Resp BP Pulse Ox O2 Del Method 96.9 F 56 L 18 120/80 100 Room Air 09/19/24 12:00 09/19/24 14:49 09/19/24 12:00 09/19/24 14:49 09/19/24 12:00 09/19/24 12:00 Narrative Exam PE: Gen: Well-developed and well-nourished. Jaundiced. HEENT: NCAT, PERRLA, EOMI, MMM. Scleral icterus. CVS: normal S1 and S2. RRR. No M/R/G. Resp: CTA B/L. No rhonchi, rales, crackles or wheezing. Abd: soft, non-tender. Abdominal distention, positive fluid wave. MSK: Good ROM in BUE & BLE. No rash. Trace edema BLE. Neuro: A&O x 3. No gross neurological deficit. Objective Labs 09/20/24 04:15 09/20/24 04:15 Labs: Laboratory Results - last 24 hr 09/18/24 09/18/24 09/19/24 17:22 21:15 00:50 WBC RBC Hgb Hct MCV MCH MCHC RDW Std Deviation Plt Count Neut % (Auto) Lymph % (Auto) [place] % (Auto) Eos % (Auto) Baso % (Auto) Neut # (Auto) Lymph # (Auto) [place] # (Auto) Eos # (Auto) Baso # (Auto) Immature Gran # (Auto) Absolute Nucleated RBC Immature Gran % Nucleated RBC % Sodium Potassium Chloride Carbon Dioxide Anion Gap BUN Creatinine Estim Creat Clear Calc eGFR BUN/Creatinine Ratio Glucose Calculated Osmolality Lactic Acid 2.9 H 2.4 H Calcium Corrected Calcium Phosphorus Magnesium Total Bilirubin AST ALT Alkaline Phosphatase Total Protein Albumin Globulin Albumin/Globulin Ratio Triglycerides Cholesterol LDL Cholesterol, Calc HDL Cholesterol Cholesterol/HDL Ratio Coccidioides IgM Ab Positive A RSV Rapid Negative 09/19/24 04:53 WBC 14.6 H RBC 3.13 L Hgb 8.7 L Hct 26.6 L MCV 85 MCH 27.8 MCHC 32.7 RDW Std Deviation 80.6 H Plt Count 125 L Neut % (Auto) 91 H Lymph % (Auto) 3 L [place] % (Auto) 5 Eos % (Auto) 0 Baso % (Auto) 0 Neut # (Auto) 13.3 H Lymph # (Auto) 0.5 L [place] # (Auto) 0.7 Eos # (Auto) 0.0 Baso # (Auto) 0.0 Immature Gran # (Auto) 0.10 H Absolute Nucleated RBC 0.00 Immature Gran % 1 H Nucleated RBC % 0 Sodium 142 Potassium 3.3 L Chloride 110 H Carbon Dioxide 20.4 Anion Gap 12 BUN 37 H Creatinine 1.0 Estim Creat Clear Calc 81.1 eGFR > 60 BUN/Creatinine Ratio 37 H Glucose 124 H Calculated Osmolality 292 Lactic Acid Calcium 8.0 L Corrected Calcium 9.4 Phosphorus 5.4 H Magnesium 2.3 Total Bilirubin 21.6 H* D AST 94 H ALT 121 H Alkaline Phosphatase 93 Total Protein 5.8 Albumin 2.3 L D Globulin 3.5 Albumin/Globulin Ratio 0.7 L Triglycerides 125 Cholesterol 108 L LDL Cholesterol, Calc 78 HDL Cholesterol < 5 L Cholesterol/HDL Ratio 21.0 H Coccidioides IgM Ab RSV Rapid Quality Measures Quality Measures VTE prophylaxis Assessment & Plan Assessment Current Active Medications: Generic Name Dose Route Start Last Admin Trade Name Freq PRN Reason Stop Dose Admin Acetaminophen 650 mg 09/18/24 16:02 Acetaminophen Supp 650 Mg Supp SC 10/18/24 16:01 Q6HR PRN Fever > 100.4 or pain Fluconazole 200 mg 09/19/24 21:00 Fluconazole Susp 40 Mg/Ml Ml PO 09/26/24 20:59 BID CATHY Furosemide 20 mg 09/19/24 14:45 09/19/24 14:49 Furosemide Inj 10 Mg/Ml Vial 2 Ml IVP 10/19/24 14:44 20 mg QDAY CATHY Administration Ceftriaxone Sodium 1,000 mg/ 50 mls @ 100 mls/hr 09/18/24 16:12 09/19/24 08:38 Sodium Chloride IV 09/25/24 16:11 100 mls/hr QDAY CATHY Administration Octreotide Acetate 1,000 mcg/ 102 mls @ 5.1 mls/hr 09/19/24 11:50 09/19/24 13:04 Sodium Chloride IV 09/24/24 11:50 50 mcg/hr .Q20H CATHY 5.1 mls/hr Administration Protocol 50 MCG/HR Lactulose 30 gm 09/19/24 14:00 09/19/24 14:16 Lactulose Syrup 20 Gm/30 Ml Udc PO 10/19/24 13:59 30 gm TID CATHY Administration Protocol Lorazepam 0.5 mg 09/18/24 16:07 Lorazepam 2 Mg/Ml Vial IVP 09/23/24 16:06 Q4H PRN CIWA score 2-6 Lorazepam 1 mg 09/18/24 16:07 Lorazepam 2 Mg/Ml Vial IVP 09/23/24 16:06 Q4H PRN CIWA score 7-11 Lorazepam 2 mg 09/18/24 16:07 Lorazepam 2 Mg/Ml Vial IVP 09/23/24 16:06 Q4H PRN CIWA score 12-15 Midodrine 5 mg 09/19/24 09:45 09/19/24 14:17 Midodrine 5 Mg Tablet PO 10/19/24 09:44 5 mg TID CATHY Administration Ondansetron HCl 4 mg 09/18/24 16:02 Ondansetron Inj 2 Mg/Ml Inj 2 Ml IV 10/18/24 16:01 Q6H PRN NAUSEA OR VOMITING Protocol Pantoprazole Sodium 40 mg 09/18/24 21:00 09/19/24 08:39 Pantoprazole Inj 40 Mg Vial IVP 10/18/24 20:59 40 mg Q12HR CATHY Administration Prednisone 10 mg 09/20/24 09:00 Prednisone 20 Mg Tablet PO 10/20/24 08:59 QDAY CATHY Rifaximin 550 mg 09/19/24 09:00 09/19/24 08:40 Rifaximin 550 Mg Tablet PO 09/26/24 08:59 550 mg BID CATHY Administration Plan 44 y/o M with PMHx significant for cirrhosis, history of variceal bleeding s/p banding presents to ED with chief complaint of agitation and altered mental status, admitted for acute hepatic encephalopathy. #Acute hepatic encephalopathy #Acute decompensated Alcoholic cirrhosis Patient presented with complaints of altered mental status and agitation x 1 day. Patient is history of hepatic cephalopathy in the past, per family taking medications as prescribed. On admission, patient labs significant for ammonia 126, bilirubin 24.9, lactic acid 4.0, INR 2.0, albumin 2.8. U tox negative, alcohol levels negative. CT C/A/P showed signs of vascular congestion, cirrhosis with varices and splenomegaly, mild to moderate ascites. In the ED patient received Ativan, Haldol, diphenhydramine due to agitation. Patient currently obtunded due to sedation. Patient currently on steroids at home, will begin taper. Patient awake, alert and oriented today. Switch meds to p.o. formulation. Added midodrine for BP support and Lasix for increased diuresis. Patient evaluated for possible paracentesis, not enough fluid for tap. Lactate trending down. -Lactulose 20 mg p.o. 3 times daily -Rifaximin 550 mg p.o. daily -Ceftriaxone 1 g IV daily for SBP prophylaxis -Telemetry -Will consider resuming home meds as appropriate -Prednisone 10 mg p.o. daily taper for alcoholic hepatitis from home regimen -Lasix 20 mg IV daily -Midodrine 5 mg p.o. 3 times daily #Esophageal varices s/p banding -GI consulted, appreciate recommendations -Octreotide drip initiated - will need repeat EGD prior to discharge - H/h stable, will continue to monitor #Granuloma incidental finding #[place] fever CT showed incidental finding of 10 mm calcified granuloma. No previous CT on file to compare to. Notes indicate nodule monitored on chest x-ray outpatient. Cocci IgM positive, IgG reflex pending. -Fluconazole 200 mg p.o. twice daily -Follow LFTs closely -Follow-up IgG results. -Follow-up outpatient DVT prophylaxis: SCDs GI prophylaxis: Protonix IV twice daily Diet: Fluid restricted low-sodium diet. Lines: Peripheral IV Code status: Full code Plan of care discussed with senior resident Dr. Goins PGY?[address] Soliz. Scott Munguia MD PGY?1 Attending Provider Attestation/Addendum I, Netta Soliz, DO, attest that I was physically present for the cisneros portions of the service and evaluated the patient with the resident and I reviewed and discussed the case with the resident and agree with the resident's findings and plans of care as documented above Patient seen and evaluated this AM. Patient is much more alert this AM. He states that he is able to have at least 4 BMs a day. BP has been borderline low, will schedule midodrine. Due to varices noted on imaging, will add octreotide. Patient evaluated by GI and plans for EGD prior to discharge. Will switch meds to PO meds at this time as patient is much more alert. Patient states his last drink was 08/03. Patient had been discharged with steroid taper on previous admission, will continue with taper as well. Patient noted to have cocci IgM positive, will start on fluconazole and monitor liver enzymes closely. Will order PT
--- NOTE | 2024-09-19 16:44 | PC.PT ---
PT eval only. Patient is I with transfers and ambulation. Patient can ambulate with staff or family in the hallway.
[2024-09-19] MEDS: INSULIN LISPRO (AdmeLOG) 1 UNIT/0.01 ML UNIT SC (17:32)
--- NOTE | 2024-09-19 20:44 | ESPR_ITS ---
Documentation for date of: 09/19/24 Subjective Subjective Interval history: 44 years old male evaluated He is more alert More oriented WBC count 14.6 hemoglobin hematocrit 8.7 and 26.6 with a platelet count of 125,000 Total bilirubin now up to 21.6 AST ALT at 94 and 121 and alk phos of 93 Exam Vital Signs Temp Pulse Resp BP Pulse Ox O2 Del Method 98.2 F 70 17 103/63 100 Room Air 09/19/24 16:00 09/19/24 16:00 09/19/24 16:00 09/19/24 16:00 09/19/24 16:00 09/19/24 16:00 Objective Labs 09/19/24 04:53 09/19/24 04:53 Labs: Laboratory Results - last 24 hr 09/18/24 09/19/24 09/19/24 21:15 00:50 04:53 WBC 14.6 H RBC 3.13 L Hgb 8.7 L Hct 26.6 L MCV 85 MCH 27.8 MCHC 32.7 RDW Std Deviation 80.6 H Plt Count 125 L Neut % (Auto) 91 H Lymph % (Auto) 3 L [place] % (Auto) 5 Eos % (Auto) 0 Baso % (Auto) 0 Neut # (Auto) 13.3 H Lymph # (Auto) 0.5 L [place] # (Auto) 0.7 Eos # (Auto) 0.0 Baso # (Auto) 0.0 Immature Gran # (Auto) 0.10 H Absolute Nucleated RBC 0.00 Immature Gran % 1 H Nucleated RBC % 0 Sodium 142 Potassium 3.3 L Chloride 110 H Carbon Dioxide 20.4 Anion Gap 12 BUN 37 H Creatinine 1.0 Estim Creat Clear Calc 81.1 eGFR > 60 BUN/Creatinine Ratio 37 H Glucose 124 H Calculated Osmolality 292 Lactic Acid 2.4 H Calcium 8.0 L Corrected Calcium 9.4 Phosphorus 5.4 H Magnesium 2.3 Total Bilirubin 21.6 H* D AST 94 H ALT 121 H Alkaline Phosphatase 93 Total Protein 5.8 Albumin 2.3 L D Globulin 3.5 Albumin/Globulin Ratio 0.7 L Triglycerides 125 Cholesterol 108 L LDL Cholesterol, Calc 78 HDL Cholesterol < 5 L Cholesterol/HDL Ratio 21.0 H Coccidioides IgM Ab Positive A RSV Rapid Negative Impressions Impression: Chronic liver disease secondary to alcohol Hepatic encephalopathy improving Recurrent GI bleed Continue current management Assessment & Plan A&P Narrative # Acute hepatic encephalopathy trial of lactulose and Xifaxan # Esophageal and perigastric varices Last admission patient had a EGD with band ligation of the esophageal varices Before discharge patient should have another endoscopy for further band ligation of the esophageal varices as evidenced by the CT scan findings of the chest abdomen and pelvis # Cirrhotic liver disease Will speak with case management about hospitalist under his insurance are available for him to be evaluated for a possible liver transplant My particular interest would be [facility] or [facility] to see if they are covered under his insurance then I will make those phone calls to get in there Prognosis guarded thank you for the opportunity to participate in the care of this patient Time Spent With Patient Time: Total time spent is greater than 50% in coordination of care (as documented) at patient's floor/unit and/or counseling patient:
[2024-09-19] MEDS: FLUCONAZOLE SUSP 40 MG/ML ML 200 MG PO (22:37)
[2024-09-20] VITALS (11 sets, daily range): BP systolic 106–125; BP diastolic 59–88; PULSE 74–92; RESP 14–24; TEMP 36.8–37.4; O2SAT 98–100; BMI 26.9
[2024-09-20] MEDS: INSULIN LISPRO (AdmeLOG) 1 UNIT/0.01 ML UNIT SC ×3 (00:09→11:49)
[2024-09-20 05:27] LABS: Basophils % (Auto) 0 % (0-2.5); Eosinophils % (Auto) 0 % (0-10); Hematocrit 24.3 % (41.0-53.0); Immature Granulocytes % (Auto) 1 % (0-0); Immature Granulocytes Auto 0.19 Thou/mm3 (0.00-0.00); Lymphocytes % (Auto) 6 % (10-50); Mean Corpuscular HGB Conc 32.9 g/dl (31.0-37.0); Mean Corpuscular Hemoglobin 27.8 pg (25.0-35.0); Mean Corpuscular Volume 84 fL (80-100); Monocytes # (Auto) 1.1 Thou/mm3 (0.0-0.8); Monocytes % (Auto) 6 % (0-12); Neutrophils # (Auto) 14.6 Thou/mm3 (1.8-7.7); Neutrophils % (Auto) 87 % (37-80); Nucleated Red Blood Cell % 0 /100 WBC (0); Platelet Count 119 Thou/mm3 (140-440); RDW Standard Deviation 79.7 fL (35.1-43.9); Red Blood Count 2.88 Miln/mm3 (4.50-5.90); White Blood Count 16.9 Thou/mm3 (3.8-10.6)
[2024-09-20 06:03] LABS: Alanine Aminotransferase 124 U/L (10-49); Albumin, Serum 2.1 gm/dL (3.5-5.0); Albumin/Globulin Ratio 0.6 (1.2-2.2); Alkaline Phosphatase 87 U/L (46-116); Anion Gap 8 (7-16); Aspartate Amino Transferase 105 U/L (0-34); BUN/Creatinine Ratio 32 Ratio (12-20); Blood Urea Nitrogen 32 mg/dL (9-23); Calcium 7.3 mg/dL (8.3-10.6); Calcium (Corrected) 8.8 mg/dL (8.5-10.1); Carbon Dioxide 22.1 mMol/L (20.0-31.0); Chloride 107 mMol/L (98-107); Estimated Creatinine Clearance 81.1 mL/min (>60); Globulin 3.5 gm/dL (2.3-3.5); Glucose 134 mg/dL (74-106); Osmolality,Calculated 282 (275-295); Phosphorous 2.2 mg/dL (2.4-5.1); Potassium 4.2 mMol/L (3.4-5.1); Sodium 137 mMol/L (136-145); Total Protein 5.6 gm/dL (5.7-8.2); eGFR > 60 See Note
[2024-09-20 06:08] LABS: Bilirubin,Total 20.3 mg/dL (0.3-1.2)
[2024-09-20] MEDS: MIDODRINE 5 MG TABLET PO (06:13)
[2024-09-20] MEDS: FUROSEMIDE INJ 10 MG/ML VIAL 2 ML 20 MG IVP (08:53)
[2024-09-20] MEDS: OCTREOTIDE ACET INJ 1,000 MCG in SODIUM CHLORIDE 0.9% 100 ML 5.1 MCG IV (08:53)
[2024-09-20] MEDS: PANTOPRAZOLE INJ 40 MG VIAL IVP ×2 (08:55→21:28)
[2024-09-20] MEDS: rifaximin 550 MG TABLET PO ×2 (08:55→21:28)
[2024-09-20] MEDS: MIDODRINE 5 MG TABLET 10 MG PO ×3 (08:57→21:29)
[2024-09-20] MEDS: predniSONE 20 MG TABLET 10 MG PO (08:57)
[2024-09-20] MEDS: cefTRIAXone 1,000 MG in SODIUM CHLORIDE 0.9% (Popper) 50 ML 100 MG IV (09:00)
[2024-09-20] MEDS: FLUCONAZOLE SUSP 40 MG/ML ML 400 MG PO (11:24)
--- NOTE | 2024-09-20 14:30 | PC.SS ---
Rounding: Plan for EGD, DC plan home with HH 1-2 days
--- NOTE | 2024-09-20 14:31 | ESPR_ITS ---
<Statement entered by Hattie Goins MD - 09/20/24 16:18> I discussed with and supervised the international affairs vice president physician who took care of this patient. I personally saw and examined the patient and discussed the assessment and plan with the entire medicine team, including my attending Dr. Soliz, I agree with the assessment and plan as documented below Patient seen and examined at bedside today. Labs and imaging reviewed. No overnight acute events This morning bedside patient stated feeling well, denied any acute complaints. T. bili downtrending, per gastroenterology recommendations patient is going to have EGD tomorrow, midodrine was increased to 10 mg 3 times daily, and Lasix IV 20 mg daily. Case management is following up the case, we will continue to monitor closely. Hattie Goins MD PGY-3 Disclaimer: Despite multiple revisions, due to the dictation software being used, the document bellow may not be free of grammatical errors including phonetic/typographic errors. However, this does not deter from our commitment to providing health care in the patient's best interest in mind. Documentation for date of: 09/20/24 Subjective Subjective Interval history: No overnight events. Patient seen and examined at bedside. Resting comfortably. Patient alert and oriented, feels well. Reports working with physical therapy and doing well. Had several bowel movements overnight. Denies fevers, chills, shortness of breath, abdominal pain, nausea, vomiting. Plan for EGD tomorrow morning. Continue current medical management. Exam Vital Signs Temp Pulse Resp BP Pulse Ox O2 Del Method 99.3 F 92 24 H 117/77 100 Room Air 09/20/24 12:09/20/24 14:09/20/24 12:00 09/20/24 14:09/20/24 12:09/20/24 12:00 Narrative Exam PE: Gen: Well-developed and well-nourished. Jaundiced. HEENT: NCAT, PERRLA, EOMI, MMM. Scleral icterus. CVS: normal S1 and S2. RRR. No M/R/G. Resp: CTA B/L. No rhonchi, rales, crackles or wheezing. Abd: soft, non-tender. Abdominal distention, positive fluid wave. MSK: Good ROM in BUE & BLE. No rash. Trace edema BLE. Neuro: A&O x 3. No gross neurological deficit. Objective Labs 09/21/24 05:12 09/21/24 05:12 Labs: Laboratory Results - last 24 hr 09/20/24 04:15 WBC 16.9 H RBC 2.88 L Hgb 8.0 L Hct 24.3 L MCV 84 MCH 27.8 MCHC 32.9 RDW Std Deviation 79.7 H Plt Count 119 L Neut % (Auto) 87 H Lymph % (Auto) 6 L [place] % (Auto) 6 Eos % (Auto) 0 Baso % (Auto) 0 Neut # (Auto) 14.6 H Lymph # (Auto) 1.0 [place] # (Auto) 1.1 H Eos # (Auto) 0.0 Baso # (Auto) 0.0 Immature Gran # (Auto) 0.19 H Absolute Nucleated RBC 0.00 Immature Gran % 1 H Nucleated RBC % 0 Sodium 137 Potassium 4.2 D Chloride 107 Carbon Dioxide 22.1 Anion Gap 8 BUN 32 H Creatinine 1.0 Estim Creat Clear Calc 81.1 eGFR > 60 BUN/Creatinine Ratio 32 H Glucose 134 H Calculated Osmolality 282 Calcium 7.3 L Corrected Calcium 8.8 Phosphorus 2.2 L Magnesium 2.0 Total Bilirubin 20.3 H* D AST 105 H ALT 124 H Alkaline Phosphatase 87 Total Protein 5.6 L Albumin 2.1 L Globulin 3.5 Albumin/Globulin Ratio 0.6 L Quality Measures Quality Measures VTE prophylaxis Assessment & Plan Assessment Current Active Medications: Generic Name Dose Route Start Last Admin Trade Name Freq PRN Reason Stop Dose Admin Acetaminophen 650 mg 09/18/24 16:02 Acetaminophen Supp 650 Mg Supp OR 10/18/24 16:01 Q6HR PRN Fever > 100.4 or pain Dextrose 25 ml 09/19/24 16:29 Dextrose 50%-Water Inj 50 Ml Syringe IV 10/19/24 16:28 Q15MIN PRN BG 50-70 responsive npo pt Dextrose 50 ml 09/19/24 16:29 Dextrose 50%-Water Inj 50 Ml Syringe IV 10/19/24 16:28 Q15MIN PRN BG <50 OR BG <70 & pt unresponsive Fluconazole 400 mg 09/20/24 09:45 09/20/24 11:24 Fluconazole Susp 40 Mg/Ml Ml PO 09/27/24 09:44 400 mg QDAY CATHY Administration Furosemide 20 mg 09/19/24 14:45 09/20/24 08:53 Furosemide Inj 10 Mg/Ml Vial 2 Ml IVP 10/19/24 14:44 20 mg QDAY CATHY Administration Glucagon 1 mg 09/19/24 16:29 Glucagon Inj 1 Mg Vial IM Q15MIN PRN BG <70, and no IV access Ceftriaxone Sodium 1,000 mg/ 50 mls @ 100 mls/hr 09/18/24 16:12 09/20/24 09:00 Sodium Chloride IV 09/25/24 16:11 100 mls/hr QDAY CATHY Administration Octreotide Acetate 1,000 mcg/ 102 mls @ 5.1 mls/hr 09/19/24 11:50 09/20/24 08:53 Sodium Chloride IV 09/24/24 11:50 50 mcg/hr .Q20H CATHY 5.1 mls/hr Administration Protocol 50 MCG/HR Insulin Human Lispro 0 unit 09/19/24 18:00 09/20/24 11:49 Insulin Lispro (Admelog) 1 Unit/0.01 Ml Unit SC 10/19/24 17:59 1 unit Q6HR CATHY Administration Protocol Lactulose 30 gm 09/19/24 14:00 09/20/24 14:14 Lactulose Syrup 20 Gm/30 Ml Udc PO 10/19/24 13:59 Not Given TID CATHY Protocol Lorazepam 0.5 mg 09/18/24 16:07 Lorazepam 2 Mg/Ml Vial IVP 09/23/24 16:06 Q4H PRN CIWA score 2-6 Lorazepam 1 mg 09/18/24 16:07 Lorazepam 2 Mg/Ml Vial IVP 09/23/24 16:06 Q4H PRN CIWA score 7-11 Lorazepam 2 mg 09/18/24 16:07 Lorazepam 2 Mg/Ml Vial IVP 09/23/24 16:06 Q4H PRN CIWA score 12-15 Midodrine 10 mg 09/20/24 09:45 09/20/24 14:01 Midodrine 5 Mg Tablet PO 10/20/24 09:44 10 mg TID CATHY Administration Ondansetron HCl 4 mg 09/18/24 16:02 Ondansetron Inj 2 Mg/Ml Inj 2 Ml IV 10/18/24 16:01 Q6H PRN NAUSEA OR VOMITING Protocol Pantoprazole Sodium 40 mg 09/18/24 21:00 09/20/24 08:55 Pantoprazole Inj 40 Mg Vial IVP 10/18/24 20:59 40 mg Q12HR CATHY Administration Prednisone 10 mg 09/20/24 09:00 09/20/24 08:57 Prednisone 20 Mg Tablet PO 10/20/24 08:59 10 mg QDAY CATHY Administration Rifaximin 550 mg 09/19/24 09:00 09/20/24 08:55 Rifaximin 550 Mg Tablet PO 09/26/24 08:59 550 mg BID CATHY Administration Plan 44 y/o M with PMHx significant for cirrhosis, history of variceal bleeding s/p banding presents to ED with chief complaint of agitation and altered mental status, admitted for acute hepatic encephalopathy. #Acute hepatic encephalopathy, improving #Acute decompensated Alcoholic cirrhosis Patient presented with complaints of altered mental status and agitation x 1 day. Patient is history of hepatic cephalopathy in the past, per family taking medications as prescribed. On admission, patient labs significant for ammonia 126, bilirubin 24.9, lactic acid 4.0, INR 2.0, albumin 2.8. U tox negative, alcohol levels negative. CT C/A/P showed signs of vascular congestion, cirrhosis with varices and splenomegaly, mild to moderate ascites. In the ED patient received Ativan, Haldol, diphenhydramine due to agitation. Patient currently obtunded due to sedation. Patient currently on steroids at home, will begin taper. Patient awake, alert and oriented today. Switch meds to p.o. formulation. Added midodrine for BP support and Lasix for increased diuresis. Patient evaluated for possible paracentesis, not enough fluid for tap. Lactate trending down. -Lactulose 20 mg p.o. 3 times daily -Rifaximin 550 mg p.o. daily -Ceftriaxone 1 g IV daily for SBP prophylaxis -Telemetry -Will consider resuming home meds as appropriate -Prednisone 10 mg p.o. daily taper for alcoholic hepatitis from home regimen, will decrease to 5 mg daily x 7 days on discharge -Lasix 20 mg IV daily -Midodrine 5 mg p.o. 3 times daily #Esophageal varices s/p banding -GI consulted, appreciate recommendations -Octreotide drip initiated -will need repeat EGD prior to discharge, scheduled for tomorrow morning -H/h stable, will continue to monitor #Granuloma incidental finding #[place] fever CT showed incidental finding of 10 mm calcified granuloma. No previous CT on file to compare to. Notes indicate nodule monitored on chest x-ray outpatient. Cocci IgM positive, IgG reflex pending. -Fluconazole 400 mg p.o. daily -Follow LFTs closely -Follow-up IgG results. -Follow-up outpatient DVT prophylaxis: SCDs GI prophylaxis: Protonix IV twice daily Diet: Fluid restricted low-sodium diet. Lines: Peripheral IV Code status: Full code Plan of care discussed with senior resident Dr. Goins PGY?[address] Soliz. Scott Munguia MD PGY?1 Attending Provider Attestation/Addendum [place], DO, attest that I was physically present for the cisneros portions of the service and evaluated the patient with the resident and I reviewed and discussed the case with the resident and agree with the resident's findings and plans of care as documented above Patient seen eval this a.m. He states that he is feeling well. Edema in bilateral lower extremities much improved and now 1+. Mental status at baseline at this time. Patient had 6 bowel movements overnight. Will continue current lactulose management. Patient was able to ambulate with assistance of physical therapy. Will order home health on discharge. Due to esophageal varices, GI plans for endoscopy. Will follow-up with GI recommendations otherwise. No active bleeding as hemoglobin is stable. Will give patient 1 dose of Lasix 20 mg IV push.
--- NOTE | 2024-09-20 17:11 | PD.IMPROG ---
Documentation for date of: 09/20/24 Subjective Subjective Interval history: Patient evaluated pro time INR is 2.0 WBC count going up at 16.9 hemoglobin hematocrit 8.0 and 22.9 Total bilirubin 20.3 AST ALT 105 and 124 and alk phos of 87 Exam Vital Signs Temp Pulse Resp BP Pulse Ox O2 Del Method 98.9 F 86 19 122/75 99 Room Air 09/20/24 16:00 09/20/24 16:00 09/20/24 16:00 09/20/24 16:00 09/20/24 16:00 09/20/24 16:00 Objective Labs 09/20/24 04:15 09/20/24 04:15 Labs: Laboratory Results - last 24 hr 09/20/24 04:15 WBC 16.9 H RBC 2.88 L Hgb 8.0 L Hct 24.3 L MCV 84 MCH 27.8 MCHC 32.9 RDW Std Deviation 79.7 H Plt Count 119 L Neut % (Auto) 87 H Lymph % (Auto) 6 L [place] % (Auto) 6 Eos % (Auto) 0 Baso % (Auto) 0 Neut # (Auto) 14.6 H Lymph # (Auto) 1.0 [place] # (Auto) 1.1 H Eos # (Auto) 0.0 Baso # (Auto) 0.0 Immature Gran # (Auto) 0.19 H Absolute Nucleated RBC 0.00 Immature Gran % 1 H Nucleated RBC % 0 Sodium 137 Potassium 4.2 D Chloride 107 Carbon Dioxide 22.1 Anion Gap 8 BUN 32 H Creatinine 1.0 Estim Creat Clear Calc 81.1 eGFR > 60 BUN/Creatinine Ratio 32 H Glucose 134 H Calculated Osmolality 282 Calcium 7.3 L Corrected Calcium 8.8 Phosphorus 2.2 L Magnesium 2.0 Total Bilirubin 20.3 H* D AST 105 H ALT 124 H Alkaline Phosphatase 87 Total Protein 5.6 L Albumin 2.1 L Globulin 3.5 Albumin/Globulin Ratio 0.6 L Impressions Impression: Chronic liver disease secondary to alcohol decompensated Thrombocytopenia with coagulopathy GI bleed with band ligation of the esophageal varices Repeat endoscopy in the morning for further band ligation of the esophageal varices Assessment & Plan A&P Narrative # Acute hepatic encephalopathy trial of lactulose and Xifaxan # Esophageal and perigastric varices Last admission patient had a EGD with band ligation of the esophageal varices Before discharge patient should have another endoscopy for further band ligation of the esophageal varices as evidenced by the CT scan findings of the chest abdomen and pelvis # Cirrhotic liver disease Will speak with case management about hospitalist under his insurance are available for him to be evaluated for a possible liver transplant My particular interest would be [facility] or [facility] to see if they are covered under his insurance then I will make those phone calls to get in there Prognosis guarded thank you for the opportunity to participate in the care of this patient Time Spent With Patient Time: Total time spent is greater than 50% in coordination of care (as documented) at patient's floor/unit and/or counseling patient:
[2024-09-20] MEDS: LACTULOSE SYRUP 20 GM/30 ML UDC 30 GM PO (21:29)
[2024-09-21] VITALS (15 sets, daily range): BP systolic 98–116; BP diastolic 61–84; PULSE 61–88; RESP 14–19; TEMP 36.3–37.4; O2SAT 96–100; BMI 26.9
[2024-09-21] MEDS: LACTULOSE SYRUP 20 GM/30 ML UDC 30 GM PO ×2 (05:20→16:49)
[2024-09-21] MEDS: ACETAMINOPHEN 325 MG TABLET 650 MG PO (05:20)
[2024-09-21] MEDS: MIDODRINE 5 MG TABLET 10 MG PO ×2 (05:21→09:46)
[2024-09-21] MEDS: OCTREOTIDE ACET INJ 1,000 MCG in SODIUM CHLORIDE 0.9% 100 ML 5.1 MCG IV (05:24)
[2024-09-21 05:54] LABS: Basophils % (Auto) 0 % (0-2.5); Eosinophils # (Auto) 0.1 Thou/mm3 (0.0-0.5); Eosinophils % (Auto) 1 % (0-10); Hematocrit 23.9 % (41.0-53.0); Immature Granulocytes % (Auto) 2 % (0-0); Immature Granulocytes Auto 0.33 Thou/mm3 (0.00-0.00); Lymphocytes # (Auto) 1.4 Thou/mm3 (1.0-4.8); Lymphocytes % (Auto) 9 % (10-50); Mean Corpuscular HGB Conc 32.2 g/dl (31.0-37.0); Mean Corpuscular Volume 87 fL (80-100); Monocytes # (Auto) 1.1 Thou/mm3 (0.0-0.8); Monocytes % (Auto) 7 % (0-12); Neutrophils # (Auto) 11.9 Thou/mm3 (1.8-7.7); Neutrophils % (Auto) 81 % (37-80); Nucleated Red Blood Cell % 0 /100 WBC (0); Platelet Count 84 Thou/mm3 (140-440); RDW Standard Deviation 83.5 fL (35.1-43.9); Red Blood Count 2.75 Miln/mm3 (4.50-5.90); White Blood Count 14.8 Thou/mm3 (3.8-10.6)
[2024-09-21 05:56] LABS: Hemoglobin 7.7 g/dL (13.5-16.0)
[2024-09-21 06:35] LABS: Alanine Aminotransferase 130 U/L (10-49); Albumin, Serum 2.1 gm/dL (3.5-5.0); Albumin/Globulin Ratio 0.6 (1.2-2.2); Alkaline Phosphatase 83 U/L (46-116); Anion Gap 7 (7-16); Aspartate Amino Transferase 126 U/L (0-34); BUN/Creatinine Ratio 30 Ratio (12-20); Blood Urea Nitrogen 24 mg/dL (9-23); Calcium 7.1 mg/dL (8.3-10.6); Calcium (Corrected) 8.6 mg/dL (8.5-10.1); Carbon Dioxide 21.3 mMol/L (20.0-31.0); Chloride 111 mMol/L (98-107); Creatinine (Component) 0.8 mg/dL (0.6-1.3); Globulin 3.3 gm/dL (2.3-3.5); Glucose 100 mg/dL (74-106); Magnesium 1.9 mg/dL (1.6-2.6); Osmolality,Calculated 281 (275-295); Phosphorous 1.7 mg/dL (2.4-5.1); Potassium 4.7 mMol/L (3.4-5.1); Sodium 139 mMol/L (136-145); Total Protein 5.4 gm/dL (5.7-8.2); eGFR > 60 See Note
[2024-09-21 06:47] LABS: Bilirubin,Total 21.5 mg/dL (0.3-1.2)
--- NOTE | 2024-09-21 07:23 | PD.RESPRO ---
Documentation for date of: 09/21/24 Exam Vital Signs Temp Pulse Resp BP Pulse Ox O2 Del Method 99.4 F 77 16 98/61 99 Room Air 09/21/24 04:00 09/21/24 05:21 09/21/24 04:00 09/21/24 05:21 09/21/24 04:00 09/21/24 04:00 Objective Labs 09/21/24 05:12 09/21/24 05:12 Labs: Laboratory Results - last 24 hr 09/21/24 05:12 WBC 14.8 H RBC 2.75 L Hgb 7.7 L Hct 23.9 L MCV 87 MCH 28.0 MCHC 32.2 RDW Std Deviation 83.5 H Plt Count 84 L D Neut % (Auto) 81 H Lymph % (Auto) 9 L [place] % (Auto) 7 Eos % (Auto) 1 Baso % (Auto) 0 Neut # (Auto) 11.9 H Lymph # (Auto) 1.4 [place] # (Auto) 1.1 H Eos # (Auto) 0.1 Baso # (Auto) 0.0 Immature Gran # (Auto) 0.33 H Absolute Nucleated RBC 0.00 Immature Gran % 2 H Nucleated RBC % 0 Sodium 139 Potassium 4.7 D Chloride 111 H Carbon Dioxide 21.3 Anion Gap 7 BUN 24 H Creatinine 0.8 Estim Creat Clear Calc 107.0 eGFR > 60 BUN/Creatinine Ratio 30 H Glucose 100 Calculated Osmolality 281 Calcium 7.1 L Corrected Calcium 8.6 Phosphorus 1.7 L Magnesium 1.9 Total Bilirubin 21.5 H* D AST 126 H ALT 130 H Alkaline Phosphatase 83 Total Protein 5.4 L Albumin 2.1 L Globulin 3.3 Albumin/Globulin Ratio 0.6 L Quality Measures Quality Measures VTE prophylaxis Assessment & Plan Assessment Current Active Medications: Generic Name Dose Route Start Last Admin Trade Name Freq PRN Reason Stop Dose Admin Acetaminophen 650 mg 09/21/24 04:55 09/21/24 05:20 Acetaminophen 325 Mg Tablet PO 10/21/24 04:54 650 mg Q6HR PRN Administration Fever >100 or pain 1-3 Dextrose 25 ml 09/19/24 16:29 Dextrose 50%-Water Inj 50 Ml Syringe IV 10/19/24 16:28 Q15MIN PRN BG 50-70 responsive npo pt Dextrose 50 ml 09/19/24 16:29 Dextrose 50%-Water Inj 50 Ml Syringe IV 10/19/24 16:28 Q15MIN PRN BG <50 OR BG <70 & pt unresponsive Fluconazole 400 mg 09/20/24 09:45 09/20/24 11:24 Fluconazole Susp 40 Mg/Ml Ml PO 09/27/24 09:44 400 mg QDAY CATHY Administration Furosemide 20 mg 09/19/24 14:45 09/20/24 08:53 Furosemide Inj 10 Mg/Ml Vial 2 Ml IVP 10/19/24 14:44 20 mg QDAY CATHY Administration Glucagon 1 mg 09/19/24 16:29 Glucagon Inj 1 Mg Vial IM Q15MIN PRN BG <70, and no IV access Ceftriaxone Sodium 1,000 mg/ 50 mls @ 100 mls/hr 09/18/24 16:12 09/20/24 09:00 Sodium Chloride IV 09/25/24 16:11 100 mls/hr QDAY CATHY Administration Octreotide Acetate 1,000 mcg/ 102 mls @ 5.1 mls/hr 09/19/24 11:50 09/21/24 05:24 Sodium Chloride IV 09/24/24 11:50 50 mcg/hr .Q20H CATHY 5.1 mls/hr Administration Protocol 50 MCG/HR Insulin Human Lispro 0 unit 09/19/24 18:00 09/21/24 05:22 Insulin Lispro (Admelog) 1 Unit/0.01 Ml Unit SC 10/19/24 17:59 Not Given Q6HR CATHY Protocol Lactulose 30 gm 09/19/24 14:00 09/21/24 05:20 Lactulose Syrup 20 Gm/30 Ml Udc PO 10/19/24 13:59 30 gm TID CATHY Administration Protocol Lorazepam 0.5 mg 09/18/24 16:07 Lorazepam 2 Mg/Ml Vial IVP 09/23/24 16:06 Q4H PRN CIWA score 2-6 Lorazepam 1 mg 09/18/24 16:07 Lorazepam 2 Mg/Ml Vial IVP 09/23/24 16:06 Q4H PRN CIWA score 7-11 Lorazepam 2 mg 09/18/24 16:07 Lorazepam 2 Mg/Ml Vial IVP 09/23/24 16:06 Q4H PRN CIWA score 12-15 Midodrine 10 mg 09/20/24 09:45 09/21/24 05:21 Midodrine 5 Mg Tablet PO 10/20/24 09:44 10 mg TID CATHY Administration Ondansetron HCl 4 mg 09/18/24 16:02 Ondansetron Inj 2 Mg/Ml Inj 2 Ml IV 10/18/24 16:01 Q6H PRN NAUSEA OR VOMITING Protocol Pantoprazole Sodium 40 mg 09/18/24 21:00 09/20/24 21:28 Pantoprazole Inj 40 Mg Vial IVP 10/18/24 20:59 40 mg Q12HR CATHY Administration Prednisone 10 mg 09/20/24 09:00 09/20/24 08:57 Prednisone 20 Mg Tablet PO 10/20/24 08:59 10 mg QDAY CATHY Administration Rifaximin 550 mg 09/19/24 09:00 09/20/24 21:28 Rifaximin 550 Mg Tablet PO 09/26/24 08:59 550 mg BID CATHY Administration
[2024-09-21] MEDS: FUROSEMIDE INJ 10 MG/ML VIAL 2 ML 20 MG IVP (09:46)
[2024-09-21] MEDS: NAPH,KPH MBDB 1 PACKET (1.5 GM) PO (09:46)
[2024-09-21] MEDS: rifaximin 550 MG TABLET PO (09:46)
[2024-09-21] MEDS: PANTOPRAZOLE INJ 40 MG VIAL IVP (09:46)
[2024-09-21] MEDS: predniSONE 20 MG TABLET 10 MG PO (09:47)
[2024-09-21] MEDS: cefTRIAXone 1,000 MG in SODIUM CHLORIDE 0.9% (Popper) 50 ML 100 MG IV (09:47)
[2024-09-21] MEDS: FLUCONAZOLE SUSP 40 MG/ML ML 400 MG PO (09:47)
--- NOTE | 2024-09-21 14:37 | ESDS_ITS ---
<Statement entered by Netta Soliz DO - 09/22/24 13:32> I, Netta Soliz DO, attest that I was physically present for the cisneros portions of the service and evaluated the patient with the resident and I reviewed and discussed the case with the resident and agree with the resident's findings and plans of care as documented above Planned Discharge Date 09/21/24 DS: Providers Provider Date of admission: 09/18/24 16:02 Primary care physician: Physician No Primary/Family Admitting Provider: Netta Soliz DO Attending Provider on Admission: Netta Soliz DO Consults: 09/18/24 14:59 Consult to Gastroenterology Stat Comment: Hepatic encephalopathy Consulting Provider: Julissa Orozco 09/19/24 11:25 Referral Physical Therapy Routine Comment: Physician Instructions: Attending Provider on DC: Hattie Goins MD Discharging Provider: Hattie Goins MD DS: Diagnosis Problem List Completed Was Problem List Reviewed/Reconciled?: Yes Hospital Course Hospital Course Hospital course: 44-year-old man with past medical history of cirrhosis secondary to alcohol use disorder, esophageal varices status post banding, who came to the ED brought by ambulance due to altered mental status. Per patient family member sister at the bedside he stated that patient was altered at home being aggressive, delusional for which she decided to bring him to the hospital. On admission labs were significant for leukocytosis 14.5 hemoglobin of 8.7, lactic acid 4.0 INR 2.0, T. bili 24.9 transaminitis and hyperammonemia 126. CT head was negative for acute bleed midline shift or mass effect. CT chest abdomen pelvis showed cirrhosis with esophageal varices and perigastric varices, splenomegaly and mild to moderate ascites and 10 mm calcified granuloma. At the ED patient received Haldol, Ativan, Benadryl. Patient was admitted further treatment and management of acute metabolic encephalopathy most likely secondary to hyperammonemia in alcohol induced cirrhosis. During hospital course patient went to mentation baseline after multiple bowel movements induced by lactulose, WBCs downtrend, IgM cocci was positive for which patient was started on fluconazole p.o., he remained afebrile, hemoglobin was stable without any signs of active bleeding, per gastroenterology recommendations patient underwent EGD that showed esophageal varices grade 1 with erythematous mucosa at previous site of band ligation no evidence of active bleeding at this moment per gastroenterology recommendations patient could be discharged home. Today at the bedside patient is AOx4, mentation baseline, responding questions properly, tolerating p.o. afebrile, saturating well on room air denied any acute complaints at this moment he stated he wants to go home due to patient is safe and stable for discharge patient will be discharged home with home health. All questions were answered recommendation were given to come at the ED at any time if he is not feeling well Patient only to follow-up with PCP 3 to 5 days after discharge Patient will be discharged home with ? Continue lactulose 30 g p.o. 4 times daily ? Midodrine 10 mg p.o. 3 times daily ? Continue prednisone 5 mg p.o. for 7 more days ? Xifaxan 550 mg p.o. twice daily until follow-up with PCP ? Continue Lasix 40 mg p.o. daily ? Continue Protonix 40 mg p.o. twice daily ? Continue fluconazole 400 p.o. daily ? Stop propranolol until follow-up with PCP ? Hold spironolactone at this time until f/u with PCP due to bordeline low blood pressure ? Sodium restriction of 2 g daily ? Fluid restriction 1.2 L/day ? If develop bright blood per rectum, dark tarry stools or melena's as well as altered mental status come back to the ED at any time. #Acute hepatic encephalopathy, resolved #Acute decompensated Alcoholic cirrhosis #Esophageal varices s/p banding #Granuloma incidental finding #Valley fever #History of portal hypertension #History of alcohol use disorder Patient discussed with attending Dr Martínez Goins MD PGY-3 Disclaimer: Despite multiple revisions, due to the dictation software being used, the document bellow may not be free of grammatical errors including ph onetic/typographic errors. However, this does not deter from our commitment to providing health care in the patient's best interest in mind. Time Spent with Patient Time attestation: Total time spent providing and/or coordinating discharge services: Time spent: Greater than 30 minutes Exam Vital Signs Temp Pulse Resp BP Pulse Ox O2 Del Method O2 Flow Rate 97.5 F 64 14 106/69 98 Room Air 3 09/21/24 14:35 09/21/24 14:35 09/21/24 14:35 09/21/24 14:35 09/21/24 14:35 09/21/24 12:00 09/21/24 14:05 Narrative Exam General: No acute distress, chronically ill-appearing, alert, interactive, icteric, AOx4 HEENT: NC/AT, PERRL, EOMI, Good conjugate gaze, moist mucous membranes, oropharynx clear, icteric sclera Neck: Supple, No masses, No adenopathy, carotid pulse 2+ bilaterally without bruits, No JVD, normal range of motion. Chest: Symmetrical, atraumatic, and with equal expansion , Nontender on palpation no deformity and no crepitus. CVS: S1 and S2 present, Regular rate and rhythm, No murmurs, rubs or gallops perceived during auscultation. Lungs: Normal respiratory effort, CTAB, no wheezing, rhonchi or rales perceived during auscultation, No intercostal or subcostal retraction. Abdomen : Soft, increased abdominal girth no tenderness to palpation, no guarding ,no rebound, +BS, no organomegaly. Extremities: Bilateral 1+ edema, warm well perfused, normal tone and ROM, strength and sensation intact, cap refill less than 2, +2 dp equal bilaterally, able to move all 4 extremities spontaneously. Skin: jaundice noted Neuro: AOx4, cranial nerves II through XII intact, reflex symmetric and sensation normal, no focal neurologic deficits noted, GCS 15 Psych: Appropriate mood and affect. Discharge Plan Plan Patient Disposition: Home w/HOME HEALTH Patient condition on transfer: Stable Care Plan Goals: All questions were answered recommendation were given to come at the ED at any time if he is not feeling well Patient only to follow-up with PCP 3 to 5 days after discharge Patient will be discharged home with ? Continue lactulose 30 g p.o. 4 times daily ? Midodrine 10 mg p.o. 3 times daily ? Continue prednisone 5 mg p.o. for 7 more days ? Xifaxan 550 mg p.o. twice daily until follow-up with PCP ? Continue Lasix 40 mg p.o. daily ? Continue Protonix 40 mg p.o. twice daily ? Continue fluconazole 400 p.o. daily ? Stop propranolol until follow-up with PCP ? Hold spironolactone at this time until f/u with PCP due to bordeline low blood pressure ? Sodium restriction of 2 g daily ? Fluid restriction 1.2 L/day ? If develop bright blood per rectum, dark tarry stools or melena's as well as altered mental status come back to the ED at any time. Prescriptions/Referrals Prescriptions/Med Rec: New midodrine 5 mg Tablet 10 mg PO TID 30 Days Qty: 180 0RF Xifaxan 550 mg Tablet 550 mg PO BID 30 Days Qty: 60 0RF prednisone 5 mg tablet 5 mg PO QDAY 7 Days Qty: 7 0RF Taper: Prednisone Taper 5 mg DAILY for 7 Days and 0 Hour lactulose [Constulose] 10 gram/15 mL solution 30 g PO QID 30 Days Qty: 5400 3RF fluconazole [Diflucan] 200 mg tablet 400 mg PO QDAY 30 Days Qty: 60 0RF furosemide 40 mg tablet 40 mg PO QDAY Qty: 30 0RF lactulose 10 gram/15 mL solution 30 g PO QID Qty: 3785 0RF pantoprazole 40 mg tablet,delayed release (DR/EC) 40 mg PO BID Qty: 60 0RF Continued nicotine 14 mg/24 hr Patch 24 Hour 14 mg top QDAY Qty: 14 0RF Held spironolactone 25 mg Tablet 25 mg PO BID 30 Days Qty: 60 0RF Hold Instructions: f/u with PCP due to hypotension Discontinued lactulose 20 gram/30 mL Solution 30 g PO TID 30 Days Qty: 4050 0RF midodrine 5 mg Tablet 5 mg PO TID PRN (Reason: if blood pressure is less than 100/60) 30 Days Qty: 90 0RF prednisone 20 mg Tablet 10 mg PO QDAY Qty: 27 0RF Taper: Prednisone Taper 30 mg DAILY for 2 Days and 0 Hour 20 mg DAILY for 7 Days and 0 Hour 10 mg DAILY for 7 Days and 0 Hour propranolol 10 mg Tablet 10 mg PO BID 30 Days Qty: 60 0RF furosemide 40 mg tablet 40 mg PO QDAY 30 Days Qty: 30 0RF pantoprazole [Protonix] 40 mg tablet,delayed release (DR/EC) 40 mg PO BID 30 Days Qty: 60 0RF Referrals: No Primary/Family,Physician [Primary Care Provider] - Patient/Caregiver Discharge Instructions Meds to Beds: No Discharge Activity: activity as tolerated Education Materials: Paracentesis Dc Print Language: Maori Stand Alone Forms: [facility]a Award Info., Patient Portal Info Letter Discharge Order Discharge Orders: Discharge (Routine); Ordered 09/21/24 Ordered By: Hattie Goins Quality Discharge Quality Measures VTE prophylaxis
--- NOTE | 2024-09-21 15:00 | SUR.PHASEI ---
pt asleep but responds to voice, breathing unlabored on room air. v/s stable. report called to Erin CONWAY. pt will be transferred to room at this time.
--- NOTE | 2024-09-21 17:03 | PC.SS ---
SS provided community resources for pt and family
--- NOTE | 2024-09-22 10:12 | PC.CC ---
Addendum entered by Bharath Morgan RN 09/22/24 11:42: [facility] accepted the pt. Start of care date is 09/25/24. Addendum entered by Bharath Morgan RN 09/22/24 10:53: HH referral sent on [facility]. Awaiting responses. Pending Start of care date. Original Note: Per SS notes, Patient's sister, Marianna, states patient did not have a PCP. He sees Dr. Orozco for o/p services.'' Spoke to SS and found Dr. Orozco will be following for HH needs.
--- NOTE | 2024-09-26 14:47 | PC.SS ---
Follow up note: SS phoned patient's sister, Marianna @ [phone] to provide new appt. at [facility]. Provided new appt for: 10-04-24 @ 9.m. with Dr. Refugio Sheets. SS spoke to staff at clinic who confirmed they did speak with daughter prior and she was requesting a paracentesis but was told she needs to schedule an appt. first. Daughter was to speak with family and call back. Staff indicated that she never called back. Daughter was fine with new appt. time/date. SS provided transportation assistance information. Contact number for [employer] was provided.
== END 2024-09-21 17:55 | disposition home health service (06) | DRG 280 ==
LOC: SERX 15:03 → SERHOLD 17:11 → S2NX 19:30
PROVIDERS: Specialist; Admitting Provider Internal Medicine; Emergency Provider Emergency Medicine; Visit Provider Internal Medicine
PROC: 0DJ08ZZ Inspection of Upper Intestinal Tract, Via Natural or Artificial Opening Endoscopic (ICD-10-PCS; CPT 43239; principal; 2024-09-21 13:45)
DX: K76.82 Hepatic encephalopathy (principal); K70.31 Alcoholic cirrhosis of liver with ascites; F17.200 Nicotine dependence, unspecified, uncomplicated; J98.4 Other disorders of lung; I85.10 Secondary esophageal varices without bleeding; B38.0 Acute pulmonary coccidioidomycosis; D68.9 Coagulation defect, unspecified; D69.6 Thrombocytopenia, unspecified; G93.41 Metabolic encephalopathy; R16.1 Splenomegaly, not elsewhere classified; E87.70 Fluid overload, unspecified; F10.10 Alcohol abuse, uncomplicated; R44.3 Hallucinations, unspecified; K70.11 Alcoholic hepatitis with ascites; K76.6 Portal hypertension; Z79.899 Other long term (current) drug therapy
CPT/HCPCS: 36415; 36600; 70450; 71045; 71250; 74176; 76705; 80048; 80053; 80061; 80076; 80307; 80320; 81001; 82140; 82150; 82550; 82803; 83605; 83690; 83735; 83880; 84100; 84145; 84439; 84443; 84484; 85025; 85610; 85652; 85730; 86140; 86635; 87040; 87081; 87400; 87634; 87811; 93005; 96361; 96365; 96367; 96375; 97162; 99285; J0696; J1200; J1630; J1815; J1940; J2060; J2250; J2354; J2470; J2919; J3010; J3411; J7050; J7120; J7512; A9270; G0480

== ENCOUNTER 2024-09-29 17:33 | Inpatient (IN) | payer MEDICAID, SELFPAY ==
[2024-09-29] VITALS (10 sets, daily range): BP systolic 116–134; BP diastolic 64–90; PULSE 100–115; RESP 16–25; TEMP 37.1–37.9; O2SAT 97–100; BMI 25.0
--- NOTE | 2024-09-29 18:50 | EDNOTE_ITS ---
Altered Mental Status RME/HPI General Chief Complaint: Altered Mental Status Stated Complaint: MENTAL STATUS Time Seen by Provider: 09/29/24 18:27 Source: patient and EMS Arrival date/time: 09/29/24 17:33 Mode of arrival: EMS Limitations: no limitations RME / HPI RME / HPI narrative: Dr. Bah?s Main ED Evaluation: 44-year-old man with a past medical history of cirrhosis secondary to alcohol use disorder and esophageal varices status post banding presented to the ED via ambulance due to altered mental status. His sister, who was at his bedside, reported that she found him at home more confused than the usual, and medication non-compliance. His mother informed her he has been exhibiting aggressive behavior, and delusions since his discharge from the hospital on September 21, 2024. Concerned about his worsening condition, his sister decided to bring him to the hospital. He denies any pain at this time. His sister reports he no longer consumes alcohol. A review of his medical record reveals multiple recent hospitalizations for similar presentations: August 03?, August 30?, and September 18?. During his most recent admission, he was treated for acute metabolic encephalopathy, likely secondary to hyperammonemia in the setting of alcohol-induced cirrhosis. Per gastroenterology recommendations, he underwent an EGD, which demonstrated grade 1 esophageal varices with erythematous mucosa at the prior band ligation site, without active bleeding. Related Data Previous Rx's ?Medication ?Instructions ?Recorded nicotine 14 mg/24 hr daily 14 mg top QDAY #14 ea 09/11 transdermal patch spironolactone 25 mg tablet 25 mg PO BID 1 month #60 t abs 09/11/24 Held on 09/21/24. Instructions: f/u with PCP due to hypotension fluconazole 200 mg tablet 400 mg (2 x 200 mg) PO QDAY 1 09/21/24 (Diflucan) month #60 tabs furosemide 40 mg tablet 40 mg PO QDAY #30 tabs 09/21 lactulose 10 gram/15 mL oral 30 g (45 mL) PO QID #3,78 5 mL 09/21/24 solution lactulose 10 gram/15 mL oral 30 g (45 mL) PO QID 1 mon #5,400 09/21/24 solution (Constulose) mL midodrine 5 mg tablet 10 mg (2 x 5 mg) PO TID 1 mo nth 09/21/24 #180 tabs pantoprazole 40 mg tablet,delayed 40 mg PO BID #60 tab s 09/21/24 release rifaximin 550 mg tablet (Xifaxan) 550 mg PO BID 1 lyssa h #60 tabs 09/21/24 Allergies Allergy/AdvReac Type Severity Reaction Status Date / Time No Known Allergies Allergy Verified 09/13/24 10:55 Review of Systems Review of Systems Systems Reviewed: All systems reviewed, normal except as documented Past Medical History Past Medical History NEUROLOGIC: Negative Neurological Disorders or Seizures CARDIAC: Negative Cardiac Disorders or Congestive Heart Failure RESPIRATORY: Positive Respiratory Disorders and Pneumonia; Negative Chronic Obstructive Pulmonary Disease (COPD) or Asthma GASTROINTESTINAL: Positive Cirrhosis, Gastrointestinal Bleed and Esophageal Varices; Negative Gastrointestinal Disorders or Hepatitis GENITOURINARY: Negative Genitourinary Disorders or Renal Disease MUSCULOSKELETAL: Negative Musculoskeletal Disorders ENDOCRINE: Negative Endocrine Disorders, Diabetes Mellitus Type 1 or Diabetes Mellitus Type 2 HEMATOLOGIC: Positive Anemia; Negative Blood Disorders or Sickle Cell Disease OTHER HISTORY: Positive Hospitalization, Blood Transfusions and Chicken Pox; Negative Autoimmune Disease, Down Syndrome, Developmental Delay, Falls, Blood Transfusion Reaction, Anesthesia Reactions, MRSA, VRSA, Vancomycin-Resistant Enterococci, Human Immunodeficiency Virus (HIV), Measles, Mumps, Rubella (Danish Measles), Pertussis, Clostridium Difficile or Cancer Family History FAMILY HISTORY: Positive Family Respiratory Disorders and Family Cancer; Negative Family Psychiatric Problems, Family Cardiac Disorders, Family Gastrointestinal Problems, Family Surgery or Family Anesthesia Reaction Surgical History SURGICAL: Positive Abdominal Surgery Social History SMOKING STATUS: Unknown if ever smoked ED Exam General Limitations: Present no limitations General appearance: Present alert, in no apparent distress and other (Somnolent but easily arousable to voice. Responds with 1-2 word answers. ) Head Head exam: Present atraumatic Eye Eye exam: Present normal appearance, PERRL, EOMI and scleral icterus ENT ENT exam: Present normal exam, normal oropharynx and mucous membranes moist Neck Neck exam: Present normal inspection, full ROM and trachea midline Chest Chest inspection: Present normal inspection and symmetric chest wall rise Respiratory Respiratory exam: Present normal lung sounds bilaterally Cardiovascular Cardiovascular exam: Present regular rate, normal rhythm and normal heart sounds Abdominal Exam Abdominal exam: Present soft and normal bowel sounds Extremities Exam Extremities exam: Present normal inspection and full ROM Back Exam Back exam: Present normal inspection and full ROM Neurological Exam Neurological exam: Present alert, oriented X3 and CN II-XII intact Psychiatric Psychiatric exam: Present normal affect and normal mood Skin Skin exam: Present warm, dry, intact, normal color and other (jaundiced) Course Course Course Narrative: 1948 Sepsis alert initiated. Orders made at this time are congruent with ED Adult Sepsis Order List. Re-evaluation is to be completed. 2229 Sepsis reassessment performed consisting of lab review, vitals, physical exam including auscultation of heart, lungs, and visual evaluation of capillary refills, mucosal membranes and extremities. Quality Measures Current suspected stage: sepsis Possible source: GI tract/intra-abdominal Blood cultures ordered: yes Antibiotic ordered: Yes Pertinent labs: 09/29/24 09/29/24 00:04 19:55 Lactic Acid 2.8 H mMol/L 3.4 H mMol/L (0.4-2.0) (0.4-2.0) Procalcitonin 1.86 H ng/ml (0.0-0.49) sepsis Orders Category Date Time Status Bedside Blood Glucose NOW Care 09/29/24 19:00 Active Bin Packer NOW Care 09/29/24 19:00 Active Continuous Pulse Oximetry NOW Care 09/29/24 19:00 Active EKG (ED ONLY) *Do not use* NOW Care 09/29/24 19:00 Completed In and Out Catheter X1 Care 09/29/24 19:00 Active In and Out Catheter X1PRN Care 09/29/24 19:03 Active Insert IV NOW Care 09/29/24 19:00 Active Miscellaneous Nursing Order NOW Care 09/29/24 18:32 Active Urinary Catheter NOW Care 09/29/24 19:[address] head/brain wo con Stat Exams 09/29/24 19:01 Completed EKG (ED Only) Stat Exams 09/29/24 19:00 Ordered XR chest 1V portable Stat Exams 09/29/24 19:49 Completed Alcohol, Blood Medical Stat Lab 09/29/24 19:55 Completed Ammonia Stat Lab 09/29/24 20:56 Completed Arterial Blood Gas Stat Lab 09/29/24 19:27 Completed B-Type Natriuretic Peptide Stat Lab 09/29/24 19:55 Completed Blood Culture (Lab) Stat Lab 09/29/24 20:37 Received CBC Stat Lab 09/29/24 19:55 Completed Comprehensive Metabolic Panel Stat Lab 09/29/24 19:55 Completed Drug Screen,Urine Stat Lab 09/30/24 01:54 Completed Free T4 (Free Thyroxine) Stat Lab 09/29/24 19:55 Completed LDH (Lactate Dehydrogenase) Stat Lab 09/29/24 19:55 Completed Lactate (Lactic Acid) Stat Lab 09/29/24 19:55 Completed Lactic Acid, 3 HR Stat Lab 09/29/24 00:04 Completed Lipase Stat Lab 09/29/24 19:55 Completed Magnesium Stat Lab 09/29/24 19:55 Completed Partial Thromboplastin Time Stat Lab 09/29/24 19:55 Completed Phosphorous Stat Lab 09/29/24 19:55 Completed Procalcitonin Stat Lab 09/29/24 19:55 Completed Prothrombin Time with INR Stat Lab 09/29/24 19:55 Completed Thyroid Stimulating Hormone Stat Lab 09/29/24 19:55 Completed Troponin I Stat Lab 09/29/24 19:55 Completed Urinalysis Stat Lab 09/30/24 01:54 Completed Urine Culture Stat Lab 09/30/24 01:54 Received DILTIAZEM in D5W 125 MG Med 09/30/24 01:39 Discontinued 125 mg in 125 ml IV 5 mg/hr Doxycycline Inj [Vibramycin Inj] 100 mg Med 09/29/24 19:04 Discontinued Sodium Chloride 0.9% (Pop) [NS 0.9% mini bag] 100 ml IV X1 Magnesium Sulfate 2 GM Ivpb [Magnesium Sulfate Ivpb] Med 09/29/24 23:11 Discontinued 2 gm in 50 ml IV X1 POTASSIUM CHL 10 mEq IVPB [Kcl Ivpb] Med 09/29/24 23:11 Discontinued 10 meq in 100 ml IV Q1H Piper/Tazo Inj [Zosyn Inj] 4.5 gm Med 09/29/24 19:04 Discontinued Sodium Chloride 0.9% (Pop) [NS 0.9% mini bag] 100 ml IV X1 Sodium Chloride 0.9% 1000 ml [Ns] 1,000 ml Med 09/29/24 19:00 Discontinued IV 1,000 mls/hr Vital Signs Vital signs: Vital Signs Temperature 98.8 F 09/29/24 17:49 Pulse Rate 112 H 09/29/24 17:49 Respiratory Rate 16 09/29/24 17:49 Blood Pressure 120/71 09/29/24 17:49 Pulse Oximetry (%) 98 09/29/24 17:49 Oxygen Delivery Method Room Air 09/29/24 17:49 Procedures -ED Procedure Comment According to my interpretation, the EKG at 19:44 shows sinus tachycardia at a rate of 105 bpm with a normal axis, no ectopy, and no signs of acute ischemia or STEMI. Altered Mental Status MDM Narrative MDM Narrative:: 44-year-old man with a history of cirrhosis secondary to alcohol use disorder and esophageal varices status post banding, presenting with altered mental status. Per his sister, he has been more confused than usual with medication non-compliance and was noted by his mother to exhibit aggressive behavior and delusions since his hospital discharge on September 21, 2024. He denies any pain, and his sister reports that he is no longer consuming alcohol. He has had multiple recent hospitalizations (August 03?, August 30?, and September 18?) for acute metabolic encephalopathy, likely secondary to hype rammonemia from alcohol-induced cirrhosis. 192 ABG shows a pO2 of 48. Workup and Management: Cardiac monitoring initiated. CT head/brain without contrast ordered. EKG and chest X-ray (CXR) ordered. Sepsis workup including blood cultures, lactate, CBC, CMP, and procalcitonin initiated. Ammonia level ordered to assess for hyperammonemia. Alcohol blood level obtained to rule out alcohol intoxication or withdrawal. IV fluids initiated at 1900 for supportive care. Antibiotics with doxycycline and zosyn started. Differential Diagnosis: -Hepatic encephalopathy -Sepsis -Meningitis -Encephalitis Scribe Attestation: I, Evette Villegas, am scribing for and in the presence of Dr. Bah. Provider Notation: Although this document has been carefully reviewed, there may still be some phonetic and other typographical errors. These errors are purely grammatical due to imperfections in the software program and should not be construed in any way to compromise the substance of the patient's medical care during this visit. Patient data External records reviewed:: [facility] previous records and EMS form Clinical information provided by:: patient, EMS and family Social determinants that could affect healthcare access:: none Patient has the following chronic illnesses:: see PMH How is presenting disease/condition affected by chronic disease/condition?: exacerbated by Evaluation data The following diagnostics were reviewed and interpreted by me:: lab results, radiology exam(s) and EKG tracing(s) Lab and/or radiology exams considered but not ordered:: n/a Interpretation Summary: I personally reviewed the radiology data and agree with the radiologist's interpretation. Examination: AP chest single view Technique: AP portable sitting chest single view Exam date and time: September 29, 2024 at 1858 hrs. Comparison September 18, 2024 Indications: Chest pain sepsis today. Findings: Diffuse bilateral lung opacity consistent with pneumonia No significant cardiac enlargement taking into account AP portable technique Intact osseous structures Impression: Significant bilateral pneumonia Dictated By: Luke Huertas MD Examination: CT brain head without contrast. Date and time of exam:September 29, 2024, 1913 hrs. Indications: Altered mental status today Findings: No significant ventricular enlargement. 7 mm calcified nodule posterior right parietal convexity, image 16 2 mm probable calcification posterior left temporal lobe Intra-axial or extra-axial hemorrhage density is not seen. No mass effect or midline shift Basal cisterns are not remarkable. Fourth ventricle is midline. Cranial vault intact. Impression: Negative for acute hemorrhage, mass effect or midline shift Given the patient's presentation, recommend brain MRI follow-up pre and postcontrast to confirm 7 mm right posterior parietal convexity meningioma and best assess for demyelinating disease, acute ischemic change Dictated By: Luke Huertas MD Medications / Prescriptions Medications or Prescriptions considered but not ordered:: n/a Medication administrations:: Medication Administration History Acetaminophen (Acetaminophen 325 Mg Tablet) 650 mg PO Q8H PRN PRN Reason: Fever >101.5 Stop: 10/30/24 01:40 Fluconazole (Fluconazole 100 Mg Tablet) 400 mg PO QDAY [facility] Stop: 10/07/24 08:59 Piperacillin Sod/Tazobactam (Sod 4.5 gm/ Sodium Chloride) 100 mls @ 200 mls/hr IV Q6HR CATHY Stop: 10/07/24 02:34 Albumin Human (Albuminar-25 Ivpb) 25 gm in 100 mls @ 100 mls/hr IV TID CATHY Stop: 10/01/24 05:59 Lactulose (Lactulose Syrup 20 Gm/30 Ml Udc) 20 gm PO QID CATHY; Protocol Stop: 10/30/24 02:44 Last Admin: 09/30/24 03:00 Dose: 20 gm Documented By: SEBAS Ondansetron HCl (Ondansetron Inj 2 Mg/Ml Inj 2 Ml) 4 mg IV Q6H PRN; Protocol PRN Reason: NAUSEA OR VOMITING Stop: 10/30/24 01:49 Pantoprazole Sodium (Pantoprazole Inj 40 Mg Vial) 40 mg IVP QDAY [facility] Stop: 10/30/24 08:59 Pharmacy Consult (Pharmacy Renal Dose Adjustment 1 Ea) 1 each XX PRN PRN PRN Reason: CONSULT Stop: 10/30/24 02:30 Phytonadione (Phytonadione Inj 10 Mg/Ml Amp) 10 mg SC QDAY [facility] Stop: 10/03/24 08:59 Rifaximin (Rifaximin 550 Mg Tablet) 550 mg PO BID [facility] Stop: 10/07/24 02:44 Last Admin: 09/30/24 02:59 Dose: 550 mg Documented By: SEBAS Discontinued Medications Sodium Chloride (Ns) 1,000 mls @ 1,000 mls/hr IV .Q1H ONE Stop: 09/29/24 19:59 Last Infusion: 09/29/24 21:06 Dose: Infused Documented By: Admin: 09/29/24 20:04 Dose: 1,000 mls/hr Documented By: SEBAS Piperacillin Sod/Tazobactam (Sod 4.5 gm/ Sodium Chloride) 100 mls @ 200 mls/hr IV X1 ONE Stop: 09/29/24 19:33 Last Infusion: 09/29/24 21:04 Dose: Infused Documented By: Admin: 09/29/24 20:04 Dose: 200 mls/hr Documented By: SEBAS Doxycycline Hyclate 100 mg/ (Sodium Chloride) 100 mls @ 100 mls/hr IV X1 ONE Stop: 09/29/24 20:03 Last Infusion: 09/29/24 21:04 Dose: Infused Documented By: Admin: 09/29/24 20:02 Dose: 100 mls/hr Documented By: SEBAS Magnesium Sulfate (Magnesium Sulfate Ivpb) 2 gm in 50 mls @ 25 mls/hr IV X1 ONE Stop: 09/30/24 01:10 Last Infusion: 09/30/24 01:45 Dose: Infused Documented By: Admin: 09/29/24 23:43 Dose: 25 mls/hr Documented By: BASSAM Potassium Chloride (Kcl Ivpb) 10 meq in 100 mls @ 100 mls/hr IV Q1H CATHY Stop: 09/30/24 01:10 Last Infusion: 09/30/24 04:50 Dose: Infused Documented By: Admin: 09/30/24 01:53 Dose: 60 mls/hr Documented By: Infusion: 09/30/24 00:45 Dose: Infused Documented By: Admin: 09/29/24 23:43 Dose: 100 mls/hr Documented By: BASSAM Diltiazem HCl (Diltiazem In D5w 125 Mg) 125 mg in 125 mls @ 5 mls/hr IV .Q24H CATHY Stop: 10/30/24 01:38 Piperacillin Sod/Tazobactam (Sod 4.5 gm/ Sodium Chloride) 100 mls @ 200 mls/hr IV X1 ONE Stop: 09/30/24 03:14 Last Infusion: 09/30/24 03:45 Dose: Infused Documented By: Admin: 09/30/24 03:01 Dose: 200 mls/hr Documented By: SEBAS as above, if any Consultations Consultation(s) initiated? (list below): Yes Consultation #1 (Physician, Specialty, Details): see narrative Diagnosis Differential diagnosis altered mental status: other (Hepatic encephalopathy, sepsis, meningitis, and encephalitis) Most likely diagnosis given after review of the tests above:: Hepatic encephalopathy, Sepsis, Pneumonia, Anemia, Alcoholic cirrhosis of liver with ascites, Hepatic failure, Hypoxia Admission Indicated Admission indicated?: indicated Admission Request Was there a request for admission?: Yes Admission Attestation Admission request attestation: Discussed case with [] from Hospitalist service regarding admission. Discussed patients ED course, exam findings, labs, and radiology results. The Hospitalist [agrees,declines] to accept the patient for admission. Disposition Plan Disposition Plan: Admit Critical Care Time Critical Care Time Critical Care Time: Yes Total Critical Care Time (min.): 45 Attestation: The high probability of sudden, clinically significant deterioration in the patient?s condition required the highest level of my preparedness to intervene urgently. ? The services I provided to this patient were to treat and/or prevent clinically significant deterioration. Services included the following: chart data review, reviewing nursing notes and/or old charts, documentation time, surgical consultant collaboration regarding findings and treatment options, medication orders and management, direct patient care, vital sign assessments and ordering, interpreting and reviewing diagnostic studies and lab tests. ? Aggregate critical care time includes only time during which I was engaged in work directly related to the patient?s care, as described above, whether at bedside or elsewhere in the Emergency Department. It did not include time spent performing other reported procedures or the services of residents, students, nurses or physician assistants. Discharge Plan Plan Patient Disposition: Admit Acute Care w/in Hospital Problem List Clinical Impression: Hepatic encephalopathy, Sepsis, Pneumonia, Anemia, Alcoholic cirrhosis of liver with ascites, Hepatic failure, Hypoxia
--- NOTE | 2024-09-29 19:01 | XR_ITS ---
Examination: CT brain head without contrast. 2-D sagittal coronal reconstructions Date and time of exam:September 29, 2024, 1913 hrs. Indications: Altered mental status today CTDI: vol (mGy):53 DLP: (mGycm):1131 Technique: Multiple CT axial sections of the brain have been obtained, 5 mm slice thickness. Contrast has not been administered. 2-D sagittal, coronal reconstructions have been obtained Low dose protocols were performed. One or more of the following dose reduction techniques were used; automated exposure control, adjustment of the mA and/or KV according to patient size, use of iterative reconstruction technique. Findings: No significant ventricular enlargement. 7 mm calcified nodule posterior right parietal convexity, image 16 2 mm probable calcification posterior left temporal lobe Intra-axial or extra-axial hemorrhage density is not seen. No mass effect or midline shift Basal cisterns are not remarkable. Fourth ventricle is midline. Cranial vault intact. Impression: Negative for acute hemorrhage, mass effect or midline shift Given the patient's presentation, recommend brain MRI follow-up pre and postcontrast to confirm 7 mm right posterior parietal convexity meningioma and best assess for demyelinating disease, acute ischemic change
[2024-09-29 19:33] LABS: Base Excess -8 (-3-3); HCO3 15 mEq/L (20-26); Inspired Oxygen, FIO2 21 %; O2 Saturation 92 % (91-98); PCO2 24 mmHg (32.0-48.0); pH, Arterial 7.41 (7.35-7.45)
[2024-09-29 19:35] LABS: Allen Test Performed/OK; PO2 58 mmHg (83-108); Puncture Site Right Radial
--- NOTE | 2024-09-29 19:49 | XR_ITS ---
Examination: AP chest single view Technique: AP portable sitting chest single view Exam date and time: September 29, 2024 at 1858 hrs. Comparison September 18, 2024 Indications: Chest pain sepsis today. Findings: Diffuse bilateral lung opacity consistent with pneumonia No significant cardiac enlargement taking into account AP portable technique Intact osseous structures Impression: Significant bilateral pneumonia
[2024-09-29] MEDS: DOXYCYCLINE INJ 100 MG in SODIUM CHLORIDE 0.9% (POP) 100 ML IV (20:02)
[2024-09-29] MEDS: PIPER/TAZO INJ 4.5 GM in SODIUM CHLORIDE 0.9% (POP) 100 ML IV (20:04)
[2024-09-29] MEDS: SODIUM CHLORIDE 0.9% 1000 ML 1,000 ML IV (20:04)
[2024-09-29 20:32] LABS: Basophils # (Auto) 0.1 Thou/mm3 (0.0-0.2); Basophils % (Auto) 1 % (0-2.5); Eosinophils # (Auto) 0.1 Thou/mm3 (0.0-0.5); Eosinophils % (Auto) 1 % (0-10); Hematocrit 27.1 % (41.0-53.0); Immature Granulocytes % (Auto) 1 % (0-0); Immature Granulocytes Auto 0.07 Thou/mm3 (0.00-0.00); Lactate (Lactic Acid) 3.4 mMol/L (0.4-2.0); Lymphocytes # (Auto) 1.2 Thou/mm3 (1.0-4.8); Lymphocytes % (Auto) 10 % (10-50); Mean Corpuscular HGB Conc 32.1 g/dl (31.0-37.0); Mean Corpuscular Hemoglobin 27.9 pg (25.0-35.0); Mean Corpuscular Volume 87 fL (80-100); Monocytes # (Auto) 0.9 Thou/mm3 (0.0-0.8); Monocytes % (Auto) 8 % (0-12); Neutrophils # (Auto) 9.8 Thou/mm3 (1.8-7.7); Neutrophils % (Auto) 81 % (37-80); Nucleated Red Blood Cell % 0 /100 WBC (0); Platelet Count 261 Thou/mm3 (140-440); Red Blood Count 3.12 Miln/mm3 (4.50-5.90); White Blood Count 12.1 Thou/mm3 (3.8-10.6)
[2024-09-29 20:34] LABS: Hemoglobin 8.7 g/dL (13.5-16.0)
[2024-09-29 20:55] LABS: B-Type Natriuretic Peptide 42 pg/mL (0-100)
[2024-09-29 21:02] LABS: INR 2.1 (0.9-1.3); Partial Thromboplastin Time 49.7 Seconds (22.0-36.0); Prothrombin Time 21.4 Seconds (9.0-12.2)
[2024-09-29 21:52] LABS: Alanine Aminotransferase 46 U/L (10-49); Albumin, Serum 2.1 gm/dL (3.5-5.0); Albumin/Globulin Ratio 0.5 (1.2-2.2); Alkaline Phosphatase 90 U/L (46-116); Anion Gap 12 (7-16); Aspartate Amino Transferase 68 U/L (0-34); BUN/Creatinine Ratio 20 Ratio (12-20); Blood Urea Nitrogen 24 mg/dL (9-23); Calcium 7.4 mg/dL (8.3-10.6); Calcium (Corrected) 8.9 mg/dL (8.5-10.1); Chloride 111 mMol/L (98-107); Creatinine (Component) 1.2 mg/dL (0.6-1.3); Estimated Creatinine Clearance 67.6 mL/min (>60); Free T4 (Free Thyroxine) 0.88 ng/dL (0.89-1.76); Globulin 4.1 gm/dL (2.3-3.5); Glucose 98 mg/dL (74-106); LDH (Lactate Dehydrogenase) 224 U/L (120-246); Lipase 44 U/L (12-53); Magnesium 1.5 mg/dL (1.6-2.6); Osmolality,Calculated 279 (275-295); Phosphorous 2.5 mg/dL (2.4-5.1); Potassium 3.6 mMol/L (3.4-5.1); Procalcitonin 1.86 ng/ml (0.0-0.49); Sodium 138 mMol/L (136-145); Thyroid Stimulating Hormone 0.48 uIU/mL (0.55-4.78); Total Protein 6.2 gm/dL (5.7-8.2); Troponin I < 0.002 ng/mL (0.0-0.045); eGFR > 60 See Note
[2024-09-29 21:54] LABS: Bilirubin,Total 25.1 mg/dL (0.3-1.2)
[2024-09-29 22:00] LABS: Ammonia 46 uMol/L (11-32)
[2024-09-29 22:02] LABS: Alcohol, Blood Medical < 3.0 mg/dL (0-10.0)
[2024-09-29 23:21] LABS: Reflex Lactate? Y
[2024-09-29] MEDS: POTASSIUM CHL 10 mEq IVPB 10 MEQ/100 ML BAG 100 MEQ IV (23:43)
[2024-09-29] MEDS: Magnesium Sulfate 2 GM Ivpb 2 GM/50 ML BAG IV (23:43)
[2024-09-30] VITALS (20 sets, daily range): BP systolic 118–139; BP diastolic 72–92; PULSE 100–116; RESP 18–29; TEMP 36.3–39.2; O2SAT 94–100; BMI 57.1
[2024-09-30 00:13] LABS: Lactic Acid, 3 HR 2.8 mMol/L (0.4-2.0)
--- NOTE | 2024-09-30 01:52 | ESHP_ITS ---
<Statement entered by Oneal Cheatham MD - 10/01/24 23:26> 44-year-old male with end-stage liver disease with multiple complication including esophageal varices status post banding and multiple admissions for hepatic encephalopathy who presented again with altered mentation. In the ER, patient underwent CT head which was acute for any acute intracranial abnormality and patient will be admitted for acute hepatic encephopathy and decompensated liver disease. I reviewed above note and agree with findings and plans. I have also personally examined the patient with medicine team and went over assessment and plan with medical team including internal medicine physician and resident physician. 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 She reported that he is noncompliant. Upon my evaluation for the patient patient was conscious oriented x 3 however he was somnolent, he mentions that he believes he lost his consciousness however he denied any fall. Reportedly he is compliant with his medication even though his sister when she was talking with the ED physician mentioned that he is noncompliant. Patient reported that he has been taking his lactulose daily and he had 4-5 bowel movements per day. He mentions that he recently started to have some cough and chills, and also mentioned that he has been taking excessive amount of proteins in the form of milkshakes. His brain CT was negative for any hemorrhage or mass effect. Patient denied any upper or lower GI bleed, denied any nausea or vomiting. Patient was too lethargic to continue answering questions. On review of the patient's chart it was noted that the patient was recently discharged from the hospital because of hepatic encephalopathy. Last EGD was in September 2024, showed grade 1 esophageal varices, esophageal ulcers. No band ligation was done at that time. Home medications: Pending med reconciliation ED course: Upon presentation patient was lethargic and confused, his vitals were normal except pulse rate of 112, CBC was only significant for 12.1 WBCs which is downtrending from last visit on 21 September in which it was 14.8, his hemoglobin stable at 8.7, platelets surprisingly is 261 although his baseline range between 84 and 125 which most likely secondary to hemoconcentration at this time. Coagulation panel showed prolonged PTT of 21.4, INR of 2.1, PTT 49.7, however there was no signs of active bleeding. His pH was normal at 7.41, pCO2 of 24, O2 58, HCO3 of 15 O2 saturation 92 which may indicate hyperventilation of early sepsis. His sodium level was normal, potassium 3.6, chloride 111, BUN of 24, creatinine of 1.2 which indicate SMILEY as his last serum creatinine 1 week ago was 0.8, however the patient was noticed to have lower extremity edema +3, lactic acid is 3.4, total bilirubin 25.1, magnesium 1.5, total bilirubin of 25.1, AST 68, ALT 46 with a ratio of 2:1 which possibly indicate exogenous hepatic consult such as alcohol or drugs. Ammonia level of 46, Pro-Adin 1.86, TSH 0.48, free T4 0.88 which indicate most likely acute illness hypothyroidism. PMH: Multiple admissions secondary to hepatic and cephalopathy Social hx: Alcohol:Remote history of severe alcohol abuse disorder Upon review of patient's chart Allergies: No known allergies Review of Systems Review of Systems ROS Unobtainable: unobtainable due to mental status Exam Vital Signs Temp Pulse Resp BP Pulse Ox O2 Del Method 100.2 F 115 H 20 123/64 99 Room Air 09/29/24 19:45 09/29/24 19:45 09/29/24 19:45 09/29/24 19:45 09/29/24 19:45 09/29/24 19:45 Narrative Exam GEN: AOx3, somnolent, drowsy, able to answer some questions, severely icteric HEENT: NC/AC,, oral mucosa moist, neck supple CVS: RRR, increased sounds of S1-S2 present, no murmurs appreciated RESP: Fine crepitations on the right side, good air entry bilaterally GI: soft, abdominal distention, positive fluid thrill, mild discomfort on palpation, NBS MSK: able to move all 4 limbs, no lower extremity edema SKIN: warm and dry PSYCHOLOGICAL EXAMINER: Unable to assess due to his severe lethargy, however patient was able to move all 4 limbs, and there was mouth deviation Results: Labs 09/29/24 19:55 09/29/24 19:55 Labs: Short CBC 09/29/24 Range/Units 19:55 WBC 12.1 H (3.8-10.6) Thou/mm3 Hgb 8.7 L (13.5-16.0) g/dL Hct 27.1 L (41.0-53.0) % Plt Count 261 D (140-440) Thou/mm3 BMP 09/29/24 19:55 Sodium 138 Potassium 3.6 Chloride 111 H Carbon Dioxide 15.0 L BUN 24 H Creatinine 1.2 Glucose 98 Calcium 7.4 L Cardiac Enzymes 09/29/24 Range/Units 19:55 Troponin I < 0.002 (0.0-0.045) ng/mL Liver Function 09/29/24 Range/Units 19:55 Total Bilirubin 25.1 H* (0.3-1.2) mg/dL AST 68 H (0-34) U/L ALT 46 (10-49) U/L Alkaline Phosphatase 90 (46-116) U/L Albumin 2.1 L (3.5-5.0) gm/dL ABG Interpretation ABG results: 09/29/24 19:27 ABG pH 7.41 ABG pCO2 24 L ABG pO2 58 L* ABG HCO3 15 L ABG O2 Saturation 92 ABG Base Excess -8 L Quality Measures Quality Measures sepsis Current suspected stage: sepsis Possible source: GI tract/intra-abdominal Blood cultures ordered: yes Antibiotic ordered: Yes Medications Home Medications and Allergies Allergies Allergy/AdvReac Type Severity Reaction Status Date / Time No Known Allergies Allergy Verified 09/13/24 10:55 Visit Medications Discontinued Medications Sodium Chloride (Ns) 1,000 mls @ 1,000 mls/hr IV .Q1H ONE Stop: 09/29/24 19:59 Last Infusion: 09/29/24 21:06 Dose: Infused Piperacillin Sod/Tazobactam (Sod 4.5 gm/ Sodium Chloride) 100 mls @ 200 mls/hr IV X1 ONE Stop: 09/29/24 19:33 Last Infusion: 09/29/24 21:04 Dose: Infused Doxycycline Hyclate 100 mg/ (Sodium Chloride) 100 mls @ 100 mls/hr IV X1 ONE Stop: 09/29/24 20:03 Last Infusion: 09/29/24 21:04 Dose: Infused Magnesium Sulfate (Magnesium Sulfate Ivpb) 2 gm in 50 mls @ 25 mls/hr IV X1 ONE Stop: 09/30/24 01:10 Last Admin: 09/29/24 23:43 Dose: 25 mls/hr Potassium Chloride (Kcl Ivpb) 10 meq in 100 mls @ 100 mls/hr IV Q1H CATHY Stop: 09/30/24 01:10 Last Admin: 09/29/24 23:43 Dose: 100 mls/hr Diltiazem HCl (Diltiazem In D5w 125 Mg) 125 mg in 125 mls @ 5 mls/hr IV .Q24H CATHY Stop: 10/30/24 01:38 Assessment & Plan Plan Summary:A 44-year-old male patient with past medical history of 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 Patient was admitted for management of acute metabolic and encephalopathy. Assessment and plan #Acute metabolic encephalopathy #Most likely hepatic encephalopathy #Hyperbilirubinemia #End-stage liver disease #Hypercoagulopathy #Ascites #History of esophageal varices #SMILEY most likely prerenal less likely to be hepatorenal syndrome his hemoglobin stable at 8.7, platelets surprisingly is 261 although his baseline range between 84 and 125 which most likely secondary to hemoconcentration at this time. Coagulation panel showed prolonged PTT of 21.4, INR of 2.1, PTT 49.7, however there was no signs of active bleeding. His sodium level was normal, potassium 3.6, chloride 111, BUN of 24, creatinine of 1.2 which indicate SMILEY as his last serum creatinine 1 week ago was 0.8, however the patient was noticed to have lower extremity edema total bilirubin 25.1, magnesium 1.5, total bilirubin of 25.1, AST 68, ALT 46 with a ratio of 2:1 which possibly indicate exogenous hepatic consult such as alcohol or drugs. Ammonia level of 46, Pro-Adin 1.86, TSH 0.48, free T4 0.88 which indicate most likely acute illness hypothyroidism. Plan ? Admit patient to medicine ? Start the patient on lactulose 20 g IV 3 times daily to achieve 3 bowel movements per day ? Neurochecks every 4 hours ? Seizures precautions ? Bedside swallow eval ? Rifaximin p.o. twice daily after the patient passes swallow eval ? Start the patient on vitamin K 10 mg subcu 3 times daily ? Start the patient on albumin 25 g for 1 day 3 times daily challenge ? Avoid sedatives ? Ultrasound-guided paracentesis ?Patient already started on antibiotics as below that can cover pneumonia and SBP ?Consider start the patient on spironolactone and Lasix for his ascites and edema as soon as his kidney function improves #Sepsis secondary to hospital-acquired pneumonia #Hospital-acquired pneumonia #Lactic acidosis #History of coccidiomycosis Patient was recently discharged from the hospital 1 week ago when he was admitted for treatment of hepatic encephalopathy. Today patient is complaining of chills and productive cough. Met sepsis criteria with tachycardia, elevated WBCs, and positive chest x-ray for lobar infiltrate His pH was normal at 7.41, pCO2 of 24, O2 58, HCO3 of 15 O2 saturation 92 which may indicate hyperventilation of early sepsis. Upon presentation patient was lethargic and confused, his vitals were normal except pulse rate of 112, CBC was only significant for 12.1 WBCs which is downtrending from last visit on 21 September in which it was 14.8 +3, lactic acid is 3.4 Plan ? Follow-up on the blood cultures and urine cultures ? Start the patient on Zosyn 4.5 g IV 4 times daily pharmacy to dose ? Oxygen as needed ?Follow-up on MRSA screening, Legionella test ?Continue home medication fluconazole 400 mg p.o. daily. Hospital Maintenance: FEN: Cardiac diet with frequent meals DVT ppx: SCDs GI ppx: Protonix IV lines: PIV Salazar: None Code status: Full code Dispo: Med/tele - Patient's plan and care discussed with my attending, Dr.Obad Roebrt Dobson MD Internal Medicine PGY-2
[2024-09-30] MEDS: POTASSIUM CHL 10 mEq IVPB 10 MEQ/100 ML BAG 60 MEQ IV (01:53)
[2024-09-30 02:06] LABS: Collection Type, Urine Catheter
[2024-09-30 02:15] LABS: Bacteria,Urine Rare; Bilirubin,Urine 4+ (Negative); Blood,Urine Negative (Negative); Clarity,Urine Turbid (Clear/Hazy); Color,Urine Drk-Yellow (Lt Yel-Yel); Glucose, Urine Negative (Negative); Ketones,Urine Negative (Negative); Leukocyte Esterase,Urine Negative (Negative); Nitrite,Urine Negative (Negative); Protein,Urine Trace (Neg - Trace); RBC,Urine 4 /hpf (0-3); Squamous Epithelial Cell,Urine 1 /hpf (0-5); Urobilinogen,Urine Negative mg/dL (0.0-1.0); WBC,Urine 5 /hpf (0-5)
[2024-09-30 02:36] LABS: Amphetamine/Methamp Scrn,U Negative (Negative); Barbiturate Screen,Urine Negative (Negative); Benzodiazepines Screen,Urine Negative (Negative); Benzoylecgonine Screen, Ur Negative (Negative); Fentanyl Screen,Urine Negative (Negative); Opiate Screen,Urine Negative (Negative); THC Screen,Urine Positive (Negative)
--- NOTE | 2024-09-30 02:36 | XR_ITS ---
Examination: Abdomen sonogram, Limited Date and time of exam: September 30, 2024 1357 hours INDICATIONS: Increasing abdominal distention this week Technique: Real-time machado scale transabdominal sonographic images of the upper abdomen obtained. Findings: Minimal ascitic fluid IMPRESSION: Minimal ascitic fluid
[2024-09-30] MEDS: rifaximin 550 MG TABLET PO ×3 (02:59→21:18)
[2024-09-30] MEDS: LACTULOSE SYRUP 20 GM/30 ML UDC PO ×4 (03:00→21:17)
[2024-09-30] MEDS: PIPER/TAZO INJ 4.5 GM in SODIUM CHLORIDE 0.9% (POP) 100 ML IV (03:01)
[2024-09-30 04:00] LABS: Alcohol, Blood Medical < 3.0 mg/dL (0-10.0)
[2024-09-30 04:25] LABS: Respiratory Syncytial Virus Ag Negative (Negative)
[2024-09-30 05:55] LABS: Basophils # (Auto) 0.1 Thou/mm3 (0.0-0.2); Basophils % (Auto) 1 % (0-2.5); Eosinophils # (Auto) 0.1 Thou/mm3 (0.0-0.5); Eosinophils % (Auto) 1 % (0-10); Hematocrit 28.2 % (41.0-53.0); Immature Granulocytes % (Auto) 1 % (0-0); Immature Granulocytes Auto 0.09 Thou/mm3 (0.00-0.00); Lymphocytes # (Auto) 0.9 Thou/mm3 (1.0-4.8); Lymphocytes % (Auto) 7 % (10-50); Mean Corpuscular HGB Conc 31.9 g/dl (31.0-37.0); Mean Corpuscular Hemoglobin 28.3 pg (25.0-35.0); Mean Corpuscular Volume 89 fL (80-100); Monocytes # (Auto) 0.9 Thou/mm3 (0.0-0.8); Monocytes % (Auto) 7 % (0-12); Neutrophils # (Auto) 11.2 Thou/mm3 (1.8-7.7); Neutrophils % (Auto) 85 % (37-80); Nucleated Red Blood Cell % 0 /100 WBC (0); Platelet Count 139 Thou/mm3 (140-440); RDW Standard Deviation 81.9 fL (35.1-43.9); Red Blood Count 3.18 Miln/mm3 (4.50-5.90); White Blood Count 13.2 Thou/mm3 (3.8-10.6)
--- NOTE | 2024-09-30 05:57 | PC.NURSE ---
report was called and pt jalen to rm 365m by myself.
[2024-09-30] MEDS: ALBUMIN HUMAN 25% IVPB 25 GM/100 ML BTL IV ×3 (06:09→21:19)
[2024-09-30 06:25] LABS: Alanine Aminotransferase 61 U/L (10-49); Albumin, Serum 2.1 gm/dL (3.5-5.0); Albumin/Globulin Ratio 0.5 (1.2-2.2); Alkaline Phosphatase 94 U/L (46-116); Anion Gap 13 (7-16); Aspartate Amino Transferase 66 U/L (0-34); BUN/Creatinine Ratio 18 Ratio (12-20); Blood Urea Nitrogen 23 mg/dL (9-23); Calcium 7.5 mg/dL (8.3-10.6); Chloride 108 mMol/L (98-107); Creatinine (Component) 1.3 mg/dL (0.6-1.3); Estimated Creatinine Clearance 107.4 mL/min (>60); Globulin 4.3 gm/dL (2.3-3.5); Glucose 101 mg/dL (74-106); Osmolality,Calculated 271 (275-295); Potassium 3.9 mMol/L (3.4-5.1); Sodium 134 mMol/L (136-145); Total Protein 6.4 gm/dL (5.7-8.2); eGFR > 60 See Note
[2024-09-30 06:50] LABS: Bilirubin,Total 25.4 mg/dL (0.3-1.2); Carbon Dioxide 13.2 mMol/L (20.0-31.0)
[2024-09-30] MEDS: FLUCONAZOLE 100 MG TABLET 400 MG PO (08:52)
[2024-09-30] MEDS: PANTOPRAZOLE INJ 40 MG VIAL IVP (08:52)
[2024-09-30] MEDS: PHYTONADIONE INJ 10 MG/ML AMP SC (08:53)
[2024-09-30 10:01] LABS: Lactate (Lactic Acid) 3.8 mMol/L (0.4-2.0)
[2024-09-30] MEDS: FUROSEMIDE INJ 10 MG/ML VIAL 2 ML 20 MG IVP (11:53)
[2024-09-30] MEDS: SPIRONOLACTONE 25 MG TABLET 12.5 MG PO ×2 (12:03→21:18)
[2024-09-30] MEDS: CITRIC ACID/SODIUM CITR 15 ML UDC (BICITRA) 30 ML PO ×2 (12:04→21:19)
[2024-09-30 12:58] LABS: Reflex Lactate? Y
--- NOTE | 2024-09-30 13:36 | ESPR_ITS ---
<Statement entered by Sade Alvarez MD - 09/30/24 15:53> I discussed with and supervised the pharmacist intern physician who took care of this patient. I personally saw and examined the patient and discussed the assessment and plan with the entire medicine team, including my attending Dr. Benavides, I agree with most of the assessment and plan as documented below Sade Alvarez M.D. PGY-2 Documentation for date of: 09/30/24 Subjective Subjective Interval history: No overnight events. Patient seen examined at bedside, resting comfortably. Denies abdominal pain, chest pain, shortness of breath, fever, chills, nausea, vomiting. Patient went ultrasound, not enough fluid for paracentesis. Started Lasix and spironolactone, started Bicitra. Exam Vital Signs Temp Pulse Resp BP Pulse Ox O2 Del Method 98.0 F 109 H 29 H 124/77 98 Room Air 09/30/24 08:00 09/30/24 12:03 09/30/24 08:00 09/30/24 12:03 09/30/24 08:00 09/30/24 08:00 Narrative Exam PE: Gen: Well-developed and well-nourished. Jaundiced. HEENT: NCAT, PERRLA, EOMI, MMM. Scleral icterus. CVS: normal S1 and S2. RRR. No M/R/G. Resp: CTA B/L. No rhonchi, rales, crackles or wheezing. Abd: soft, non-tender. Abdominal distention, positive fluid wave. MSK: Good ROM in BUE & BLE. No rash. Trace edema BLE. Neuro: A&O x 3. No gross neurological deficit. Objective Labs 09/30/24 05:03 09/30/24 05:03 Labs: Laboratory Results - last 24 hr 09/29/24 09/29/24 09/29/24 00:04 19:27 19:55 WBC 12.1 H RBC 3.12 L Hgb 8.7 L Hct 27.1 L MCV 87 MCH 27.9 MCHC 32.1 RDW Std Deviation 79.0 H Plt Count 261 D Neut % (Auto) 81 H Lymph % (Auto) 10 [place] % (Auto) 8 Eos % (Auto) 1 Baso % (Auto) 1 Neut # (Auto) 9.8 H Lymph # (Auto) 1.2 [place] # (Auto) 0.9 H Eos # (Auto) 0.1 Baso # (Auto) 0.1 Immature Gran # (Auto) 0.07 H Absolute Nucleated RBC 0.00 Immature Gran % 1 H Nucleated RBC % 0 PT 21.4 H INR 2.1 H APTT 49.7 H Puncture Site Right Radial ABG pH 7.41 ABG pCO2 24 L ABG pO2 58 L* ABG HCO3 15 L ABG O2 Saturation 92 ABG Base Excess -8 L FiO2 21 Sodium 138 Potassium 3.6 Chloride 111 H Carbon Dioxide 15.0 L Anion Gap 12 BUN 24 H Creatinine 1.2 Estim Creat Clear Calc 67.6 eGFR > 60 BUN/Creatinine Ratio 20 Glucose 98 Calculated Osmolality 279 Lactic Acid 2.8 H 3.4 H Calcium 7.4 L Corrected Calcium 8.9 Phosphorus 2.5 Magnesium 1.5 L Total Bilirubin 25.1 H* AST 68 H ALT 46 Alkaline Phosphatase 90 Ammonia Lactate Dehydrogenase 224 Troponin I < 0.002 B-Natriuretic Peptide 42 Total Protein 6.2 Albumin 2.1 L Globulin 4.1 H Albumin/Globulin Ratio 0.5 L Lipase 44 Procalcitonin 1.86 H TSH 0.48 L Free T4 0.88 L Ur Collection Type Urine Color Urine Clarity Urine pH Ur Specific [place] Urine Protein Urine Glucose (UA) Urine Ketones Urine Blood Urine Nitrite Urine Bilirubin Urine Urobilinogen (Auto) Ur Leukocyte Esterase Urine RBC Urine WBC Ur Squamous Epith Cells Urine Bacteria Urine Opiates Screen Urine Fentanyl Screen Ur Barbiturates Screen U Amphetamin/Meth Scrn U Benzodiazepines Scrn U Cocaine Metab Screen U Marijuana (THC) Screen Ethyl Alcohol < 3.0 RSV Rapid 09/29/24 09/30/24 09/30/24 20:56 00:04 01:54 WBC RBC Hgb Hct MCV MCH MCHC RDW Std Deviation Plt Count Neut % (Auto) Lymph % (Auto) [place] % (Auto) Eos % (Auto) Baso % (Auto) Neut # (Auto) Lymph # (Auto) [place] # (Auto) Eos # (Auto) Baso # (Auto) Immature Gran # (Auto) Absolute Nucleated RBC Immature Gran % Nucleated RBC % PT INR APTT Puncture Site ABG pH ABG pCO2 ABG pO2 ABG HCO3 ABG O2 Saturation ABG Base Excess FiO2 Sodium Potassium Chloride Carbon Dioxide Anion Gap BUN Creatinine Estim Creat Clear Calc eGFR BUN/Creatinine Ratio Glucose Calculated Osmolality Lactic Acid Calcium Corrected Calcium Phosphorus Magnesium Total Bilirubin AST ALT Alkaline Phosphatase Ammonia 46 H Lactate Dehydrogenase Troponin I B-Natriuretic Peptide Total Protein Albumin Globulin Albumin/Globulin Ratio Lipase Procalcitonin TSH Free T4 Ur Collection Type Catheter Urine Color Drk-Yellow A Urine Clarity Turbid A Urine pH 6.0 Ur Specific [place] 1.020 Urine Protein Trace Urine Glucose (UA) Negative Urine Ketones Negative Urine Blood Negative Urine Nitrite Negative Urine Bilirubin 4+ A Urine Urobilinogen (Auto) Negative Ur Leukocyte Esterase Negative Urine RBC 4 H Urine WBC 5 Ur Squamous Epith Cells 1 Urine Bacteria Rare Urine Opiates Screen Negative Urine Fentanyl Screen Negative Ur Barbiturates Screen Negative U Amphetamin/Meth Scrn Negative U Benzodiazepines Scrn Negative U Cocaine Metab Screen Negative U Marijuana (THC) Screen Positive A Ethyl Alcohol < 3.0 RSV Rapid 09/30/24 09/30/24 09/30/24 03:30 05:03 09:22 WBC 13.2 H RBC 3.18 L Hgb 9.0 L Hct 28.2 L MCV 89 MCH 28.3 MCHC 31.9 RDW Std Deviation 81.9 H Plt Count 139 L D Neut % (Auto) 85 H Lymph % (Auto) 7 L [place] % (Auto) 7 Eos % (Auto) 1 Baso % (Auto) 1 Neut # (Auto) 11.2 H Lymph # (Auto) 0.9 L [place] # (Auto) 0.9 H Eos # (Auto) 0.1 Baso # (Auto) 0.1 Immature Gran # (Auto) 0.09 H Absolute Nucleated RBC 0.00 Immature Gran % 1 H Nucleated RBC % 0 PT INR APTT Puncture Site ABG pH ABG pCO2 ABG pO2 ABG HCO3 ABG O2 Saturation ABG Base Excess FiO2 Sodium 134 L Potassium 3.9 Chloride 108 H Carbon Dioxide 13.2 L* Anion Gap 13 BUN 23 Creatinine 1.3 Estim Creat Clear Calc 107.4 eGFR > 60 BUN/Creatinine Ratio 18 Glucose 101 Calculated Osmolality 271 L Lactic Acid 3.8 H Calcium 7.5 L Corrected Calcium 9.0 Phosphorus Magnesium 2.0 Total Bilirubin 25.4 H* AST 66 H ALT 61 H Alkaline Phosphatase 94 Ammonia Lactate Dehydrogenase Troponin I B-Natriuretic Peptide Total Protein 6.4 Albumin 2.1 L Globulin 4.3 H Albumin/Globulin Ratio 0.5 L Lipase Procalcitonin TSH Free T4 Ur Collection Type Urine Color Urine Clarity Urine pH Ur Specific [place] Urine Protein Urine Glucose (UA) Urine Ketones Urine Blood Urine Nitrite Urine Bilirubin Urine Urobilinogen (Auto) Ur Leukocyte Esterase Urine RBC Urine WBC Ur Squamous Epith Cells Urine Bacteria Urine Opiates Screen Urine Fentanyl Screen Ur Barbiturates Screen U Amphetamin/Meth Scrn U Benzodiazepines Scrn U Cocaine Metab Screen U Marijuana (THC) Screen Ethyl Alcohol RSV Rapid Negative ABG Interpretation ABG results: 09/29/24 19:27 ABG pH 7.41 ABG pCO2 24 L ABG pO2 58 L* ABG HCO3 15 L ABG O2 Saturation 92 ABG Base Excess -8 L Quality Measures Quality Measures sepsis Current suspected stage: sepsis Possible source: GI tract/intra-abdominal Blood cultures ordered: yes Antibiotic ordered: Yes Assessment & Plan Assessment Current Active Medications: Generic Name Dose Route Start Last Admin Trade Name Freq PRN Reason Stop Dose Admin Acetaminophen 650 mg 09/30/24 01:41 Acetaminophen 325 Mg Tablet PO 10/30/24 01:40 Q8H PRN Fever >101.5 Citric Acid/Sodium Citrate 30 ml 09/30/24 11:30 09/30/24 12:04 Citric Acid/Sodium Citr 15 Ml Udc (Bicitra) PO 10/30/24 11:29 30 ml BID CATHY Administration Fluconazole 400 mg 09/30/24 09:00 09/30/24 08:52 Fluconazole 100 Mg Tablet PO 10/07/24 08:59 400 mg QDAY CATHY Administration Furosemide 20 mg 10/01/24 09:00 Furosemide Inj 10 Mg/Ml Vial 2 Ml IVP 10/31/24 08:59 QDAY CATHY Albumin Human 25 gm in 100 mls @ 100 mls/hr 09/30/24 06:00 09/30/24 13:15 Albuminar-25 Ivpb IV 10/01/24 05:59 100 mls/hr TID CATHY Administration Piperacillin/Tazobactam/Dextrose 3.375 gm in 50 mls @ 12.5 mls/hr 09/30/24 14:00 Zosyn IV 10/07/24 13:59 Q8HR CATHY Protocol Lactulose 20 gm 09/30/24 02:45 09/30/24 12:04 Lactulose Syrup 20 Gm/30 Ml Udc PO 10/30/24 02:44 20 gm QID CATHY Administration Protocol Midodrine 10 mg 09/30/24 14:00 Midodrine 5 Mg Tablet PO 10/30/24 13:59 TID CATHY Ondansetron HCl 4 mg 09/30/24 01:50 Ondansetron Inj 2 Mg/Ml Inj 2 Ml IV 10/30/24 01:49 Q6H PRN NAUSEA OR VOMITING Protocol Pantoprazole Sodium 40 mg 09/30/24 09:00 09/30/24 08:52 Pantoprazole Inj 40 Mg Vial IVP 10/30/24 08:59 40 mg QDAY CATHY Administration Pharmacy Consult 1 each 09/30/24 02:31 Pharmacy Renal Dose Adjustment 1 Ea XX 10/30/24 02:30 PRN PRN CONSULT Phytonadione 10 mg 09/30/24 09:00 09/30/24 08:53 Phytonadione Inj 10 Mg/Ml Amp SC 10/03/24 08:59 10 mg QDAY CATHY Administration Rifaximin 550 mg 09/30/24 02:45 09/30/24 08:52 Rifaximin 550 Mg Tablet PO 10/07/24 02:44 550 mg BID CATHY Administration Spironolactone 12.5 mg 09/30/24 11:30 09/30/24 12:03 Spironolactone 25 Mg Tablet PO 10/30/24 11:29 12.5 mg BID CATHY Administration Plan 44-year-old male patient with past medical history of 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 Patient was admitted for management of acute metabolic and encephalopathy. #Sepsis secondary to hospital-acquired pneumonia #Lactic acidosis #History of coccidiomycosis Patient was recently discharged from the hospital 1 week ago when he was admitted for treatment of hepatic encephalopathy. Today patient is complaining of chills and productive cough. Met sepsis criteria with tachycardia, elevated WBCs, and positive chest x-ray for lobar infiltrate. His pH was normal at 7.41, pCO2 of 24, O2 58, HCO3 of 15 O2 saturation 92. Upon presentation patient was lethargic and confused, his vitals were normal except pulse rate of 112, CBC was only significant for 12.1 WBCs. Lactic acid was 3.4, trended to 3.8. -Follow-up on the blood cultures and urine cultures -Zosyn 3.375 g IV every 8 hours -Oxygen as needed -Follow-up on MRSA screening, Legionella test -Continue home medication fluconazole 400 mg p.o. daily. #Acute metabolic encephalopathy, most likely hepatic encephalopathy, resolved #Hyperbilirubinemia #End-stage liver disease #Ascites #History of esophageal varices s/p banding On admission his hemoglobin stable at 8.7. Coagulation panel showed prolonged PTT of 21.4, INR of 2.1, PTT 49.7, however there was no signs of active bleeding. Total bilirubin 25.1, magnesium 1.5, total bilirubin of 25.1, AST 68, ALT 46 with a ratio of 2:1 which possibly indicate exogenous hepatic consult such as alcohol or drugs. Ammonia level of 46, Pro-Adin 1.86. Patient has history of recurrent hepatic encephalopathy despite compliance to medications. Patient passed bedside swallow screen. Patient was sent to ultrasound-guided paracentesis, however there is not enough ascitic fluid for drainage. Patient is ascitic, lactic acid elevated at 3.8, serum bicarb 13.2. -Lactulose 20 g IV 3 times daily to achieve 3 bowel movements per day -Neurochecks every 4 hours -Seizures precautions -Rifaximin p.o. twice daily -Vitamin K 10 mg subcu 3 times daily -Start the patient on albumin 25 g for 1 day 3 times daily challenge -Avoid sedatives -Antibiotics as above -Lasix 20 mg IV daily -Spironolactone 12.5 mg p.o. twice daily -Bicitra 30 mL p.o. twice daily -Midodrine 10 mg p.o. 3 times daily as needed to maintain BP #SMILEY prerenal vs hepatorenal syndrome BUN of 24, creatinine of 1.2 which indicate SMILEY as his last serum creatinine 1 week ago was 0.8. -Monitor daily labs -Renally dose meds -Avoid nephrotoxins DVT prophylaxis: SCDs GI prophylaxis: Protonix Diet: Regular, low-sodium Lines: Peripheral IV Code status: Full code Plan of care discussed with senior resident Dr. Alvarez PGY?[address] Benav[address]. Scott Munguia MD PGY?1 Attending Provider Attestation/Addendum I attest that I was physically present for the evaluation, physical examination, lab and imaging review of the patient with the residents. I discussed the case with the residents and agree with the findings and plans of care as documented above. At bedside today, patient complains of shortness of breath. Denied abdominal pain, nausea, vomiting. Patient underwent abdominal ultrasound but did not have been ordered fluid for paracentesis. We will start him on IV Lasix and spironolactone. Also started Bicitra for low bicarbonate. Added midodrine as needed if blood pressure starts to go low. Patient had a rapid response called in the evening followed by a sepsis alert due to a fever spike of 102.5. He also had tachycardia and tachypnea. Patient was already on Zosyn, we will add vancomycin. Another set of blood work including cultures were obtained. Patient is also on fluconazole, awaiting final results from [facility]. Continues to be on lactulose, rifaximin, vitamin K, albumin. Parish Benavides MD
[2024-09-30] MEDS: PIPER/TAZO 3.375 GM PREMIX 3.375 GM/50 ML BAG IV ×2 (14:44→21:19)
[2024-09-30] MEDS: ACETAMINOPHEN 325 MG TABLET 650 MG PO ×2 (15:05→16:30)
[2024-09-30 15:44] LABS: Lactic Acid, 3 HR 3.9 mMol/L (0.4-2.0)
--- NOTE | 2024-09-30 16:24 | XR_ITS ---
Examination: AP chest single view Technique one AP portable semiupright chest single view Exam date and time: September 30, 2024 1542 hrs. Comparison September 29, 2024 Indications: Sepsis protocol. Findings: Significant bilateral pneumonia Normal heart size No pneumothorax Impression: Significant bilateral pneumonia
--- NOTE | 2024-09-30 16:24 | EKG_ITS ---
[facility] Test Date: 2024-09-30 Pat Name: LORNA PATINO [facility] Underwear Welter: [facility] : 1980 Requested By: Rodrigo Sheets Order Number: [id number] Reading MD: Rodrigo Sheets Measurements Intervals [place] Rate: 108 P: OK: QRS: 43 QRSD: 82 T: 17 QT: 402 QTc: 539 Interpretive Statements SUPRAVENTRICULAR TACHYCARDIA LEFT VENTRICULAR HYPERTROPHY AND ST-T CHANGE Compared to ECG 09/18/2024 12:28:10 Left ventricular hypertrophy now present ST (T wave) deviation now present Sinus bradycardia no longer present Intraventricular conduction delay no longer present Prolonged QT interval no longer present /store/S0/[id number].pdf
--- NOTE | 2024-09-30 16:25 | PC.SS ---
Patient is alert/oriented. Patient confirmed demographics. Patient's sisters were present. Patient needs assistance with ADL's. He resides with his and family. Patient was recently here and discharged home with home health services. Patient confirmed he was seen by [facility]. He wants to continue with this. Patient states he has a walker and a wheelchair at home. Patient states he was following up with [facility]. SS provided patient and family with local resources including [facility]/transportation/ services. Patient's sister, Andrea was present and took information. Andrea, sister, . Patient and family state the other sister, Marianna, will be primary alt medical decision maker and then if she's not available the next famiy member will be Andrea. Tentative d/c plan will be to return home. Pharmacy: [facility]. Family to transport patient to appointments. SS will continue to follow up with any further d/c needs.
[2024-09-30] MEDS: Vancomycin Inj 1,500 MG in SODIUM CHLORIDE 0.9% 500 ML 500 ML 120 MG IV (16:48)
--- NOTE | 2024-09-30 16:50 | PD.RESEVENT ---
Documentation for date of: 09/30/24 Event Note Event Note: Rapid response was called at approximately 4:30 PM due to sepsis alert. Patient spiked fever 102.4, improved with Tylenol. Patient is tachycardic, has elevated leukocytes.: Measures were initiated, patient received Tylenol, vancomycin added, repeat blood cultures and labs drawn. Chest x-ray ordered. Patient stable, fever downtrending, rapid response was ended. Scott Munguia MD PGY?1
[2024-09-30 17:09] LABS: Lactate (Lactic Acid) 3.6 mMol/L (0.4-2.0)
[2024-09-30 17:16] LABS: Basophils # (Auto) 0.1 Thou/mm3 (0.0-0.2); Basophils % (Auto) 0 % (0-2.5); Eosinophils # (Auto) 0.1 Thou/mm3 (0.0-0.5); Eosinophils % (Auto) 1 % (0-10); Hematocrit 22.8 % (41.0-53.0); Immature Granulocytes % (Auto) 1 % (0-0); Immature Granulocytes Auto 0.08 Thou/mm3 (0.00-0.00); Lymphocytes # (Auto) 0.7 Thou/mm3 (1.0-4.8); Lymphocytes % (Auto) 6 % (10-50); Mean Corpuscular HGB Conc 32.9 g/dl (31.0-37.0); Mean Corpuscular Hemoglobin 28.4 pg (25.0-35.0); Mean Corpuscular Volume 86 fL (80-100); Monocytes # (Auto) 0.7 Thou/mm3 (0.0-0.8); Monocytes % (Auto) 6 % (0-12); Neutrophils # (Auto) 10.6 Thou/mm3 (1.8-7.7); Neutrophils % (Auto) 87 % (37-80); Nucleated Red Blood Cell % 0 /100 WBC (0); Platelet Count 92 Thou/mm3 (140-440); RDW Standard Deviation 80.6 fL (35.1-43.9); Red Blood Count 2.64 Miln/mm3 (4.50-5.90); White Blood Count 12.3 Thou/mm3 (3.8-10.6)
[2024-09-30 17:18] LABS: Hemoglobin 7.5 g/dL (13.5-16.0)
[2024-09-30 17:35] LABS: Alanine Aminotransferase 29 U/L (10-49); Albumin, Serum 2.4 gm/dL (3.5-5.0); Albumin/Globulin Ratio 0.7 (1.2-2.2); Alkaline Phosphatase 74 U/L (46-116); Anion Gap 13 (7-16); Aspartate Amino Transferase 60 U/L (0-34); BUN/Creatinine Ratio 20 Ratio (12-20); Blood Urea Nitrogen 24 mg/dL (9-23); Calcium 7.3 mg/dL (8.3-10.6); Calcium (Corrected) 8.6 mg/dL (8.5-10.1); Chloride 109 mMol/L (98-107); Creatinine (Component) 1.2 mg/dL (0.6-1.3); Estimated Creatinine Clearance 116.4 mL/min (>60); Globulin 3.6 gm/dL (2.3-3.5); Glucose 140 mg/dL (74-106); Osmolality,Calculated 276 (275-295); Potassium 3.7 mMol/L (3.4-5.1); Sodium 135 mMol/L (136-145); eGFR > 60 See Note
[2024-09-30 17:42] LABS: INR 2.2 (0.9-1.3); Partial Thromboplastin Time 61.8 Seconds (22.0-36.0); Prothrombin Time 22.7 Seconds (9.0-12.2)
[2024-09-30 17:53] LABS: Bilirubin,Total 24.4 mg/dL (0.3-1.2)
[2024-09-30 18:26] LABS: Procalcitonin 2.21 ng/ml (0.0-0.49)
[2024-09-30 18:52] LABS: Collection Type, Urine Clean Catch
[2024-09-30 19:10] LABS: Bacteria,Urine 2+; Bilirubin,Urine 4+ (Negative); Blood,Urine 2+ (Negative); Clarity,Urine Turbid (Clear/Hazy); Color,Urine Drk-Yellow (Lt Yel-Yel); Glucose, Urine Negative (Negative); Hyaline Casts,Urine < 1 /hpf (0-1); Ketones,Urine Negative (Negative); Leukocyte Esterase,Urine Negative (Negative); Nitrite,Urine Negative (Negative); PH,Urine 5.5 (5.0-7.0); Protein,Urine Trace (Neg - Trace); RBC,Urine 15 /hpf (0-3); Specific Gravity,Urine 1.019 (1.001-1.035); Squamous Epithelial Cell,Urine 1 /hpf (0-5); Urobilinogen,Urine Negative mg/dL (0.0-1.0); WBC,Urine 8 /hpf (0-5)
[2024-09-30 19:58] LABS: Reflex Lactate? Y
[2024-09-30 20:25] LABS: Lactic Acid, 3 HR 2.8 mMol/L (0.4-2.0)
[2024-09-30] MEDS: MIDODRINE 5 MG TABLET 10 MG PO (21:18)
[2024-10-01] VITALS (20 sets, daily range): BP systolic 117–135; BP diastolic 64–89; PULSE 100–123; RESP 16–97; TEMP 36.9–38.7; O2SAT 90–97; BMI 26.2
[2024-10-01] MEDS: PIPER/TAZO 3.375 GM PREMIX 3.375 GM/50 ML BAG IV ×3 (05:48→21:35)
[2024-10-01] MEDS: LACTULOSE SYRUP 20 GM/30 ML UDC PO ×2 (05:48→21:33)
[2024-10-01 05:59] LABS: Lactate (Lactic Acid) 3.2 mMol/L (0.4-2.0)
[2024-10-01 06:13] LABS: Basophils # (Auto) 0.1 Thou/mm3 (0.0-0.2); Basophils % (Auto) 1 % (0-2.5); Eosinophils # (Auto) 0.2 Thou/mm3 (0.0-0.5); Eosinophils % (Auto) 1 % (0-10); Hematocrit 25.1 % (41.0-53.0); Immature Granulocytes % (Auto) 1 % (0-0); Lymphocytes # (Auto) 0.7 Thou/mm3 (1.0-4.8); Lymphocytes % (Auto) 6 % (10-50); Mean Corpuscular HGB Conc 32.3 g/dl (31.0-37.0); Mean Corpuscular Hemoglobin 28.1 pg (25.0-35.0); Mean Corpuscular Volume 87 fL (80-100); Monocytes # (Auto) 0.6 Thou/mm3 (0.0-0.8); Monocytes % (Auto) 5 % (0-12); Neutrophils # (Auto) 10.1 Thou/mm3 (1.8-7.7); Neutrophils % (Auto) 86 % (37-80); Nucleated Red Blood Cell % 0 /100 WBC (0); Platelet Count 158 Thou/mm3 (140-440); RDW Standard Deviation 78.4 fL (35.1-43.9); Red Blood Count 2.88 Miln/mm3 (4.50-5.90); White Blood Count 11.8 Thou/mm3 (3.8-10.6)
[2024-10-01 06:20] LABS: Hemoglobin 8.1 g/dL (13.5-16.0)
[2024-10-01 06:47] LABS: Alanine Aminotransferase 39 U/L (10-49); Albumin, Serum 2.6 gm/dL (3.5-5.0); Albumin/Globulin Ratio 0.7 (1.2-2.2); Alkaline Phosphatase 76 U/L (46-116); Anion Gap 14 (7-16); Aspartate Amino Transferase 56 U/L (0-34); BUN/Creatinine Ratio 19 Ratio (12-20); Blood Urea Nitrogen 28 mg/dL (9-23); Calcium 7.7 mg/dL (8.3-10.6); Calcium (Corrected) 8.8 mg/dL (8.5-10.1); Chloride 109 mMol/L (98-107); Creatinine (Component) 1.5 mg/dL (0.6-1.3); Estimated Creatinine Clearance 93.1 mL/min (>60); Globulin 3.6 gm/dL (2.3-3.5); Glucose 125 mg/dL (74-106); Magnesium 1.9 mg/dL (1.6-2.6); Osmolality,Calculated 280 (275-295); Phosphorous 2.8 mg/dL (2.4-5.1); Potassium 3.4 mMol/L (3.4-5.1); Sodium 137 mMol/L (136-145); Thyroid Stimulating Hormone 0.68 uIU/mL (0.55-4.78); Total Protein 6.2 gm/dL (5.7-8.2); eGFR 58 See Note
[2024-10-01 06:48] LABS: Carbon Dioxide 14.1 mMol/L (20.0-31.0)
[2024-10-01 06:49] LABS: Bilirubin,Total 24.9 mg/dL (0.3-1.2)
[2024-10-01] MEDS: PHYTONADIONE INJ 10 MG/ML AMP SC (08:49)
[2024-10-01] MEDS: FLUCONAZOLE 100 MG TABLET 400 MG PO (08:50)
[2024-10-01] MEDS: SPIRONOLACTONE 25 MG TABLET 12.5 MG PO ×2 (08:50→21:34)
[2024-10-01] MEDS: rifaximin 550 MG TABLET PO ×2 (08:50→21:34)
[2024-10-01] MEDS: CITRIC ACID/SODIUM CITR 15 ML UDC (BICITRA) 30 ML PO ×2 (08:51→21:33)
[2024-10-01] MEDS: FUROSEMIDE INJ 10 MG/ML VIAL 2 ML 20 MG IVP (08:51)
[2024-10-01] MEDS: PANTOPRAZOLE INJ 40 MG VIAL IVP (08:51)
[2024-10-01 08:59] LABS: Reflex Lactate? Y
[2024-10-01 09:57] LABS: Lactic Acid, 3 HR 3.7 mMol/L (0.4-2.0)
--- NOTE | 2024-10-01 10:37 | XR_ITS ---
Examination: CT abdomen and pelvis without contrast. Coronal 3-D reconstructions. Sagittal 2-D reconstructions. Date and time of exam:October 01, 2024 11:[address] chest abdomen pelvis September 18, 2024 INDICATIONS: Onset mid abdominal pain beginning 2 months ago CTDI: vol (mGy): 8.47 DLP: (mGycm): 507 Technique: Axial images of the abdomen have been obtained, 3 mm slice thickness Intravenous contrast material has not been administered. Low dose protocols were performed. One or more of the following dose reduction techniques were used; automated exposure control, adjustment of the mA and/or KV according to patient size, use of iterative reconstruction technique. Findings: Significant opacity left base consistent with pneumonia Cirrhosis, liver lobular in contour Prominent splenomegaly Esophageal varices Moderate ascites No pancreatic mass Atrophic left kidney with wall thickening of the left pelvicalyceal system No bowel obstruction Considerable patient motion Diffuse wall thickening involving the colon Urinary bladder wall thickening up to 9 mm Urinary Salazar catheter Moderate osteopenia IMPRESSION: Significant left base pneumonia Cirrhosis Prominent splenomegaly Moderate ascites Esophageal varices Significant hypertrophy left kidney Hepatic colopathy
[2024-10-01] MEDS: VANCOMYCIN/D5W 1,250 MG IVPB 250 ML 120 MG IV ×2 (10:47→22:38)
[2024-10-01] MEDS: ACETAMINOPHEN 325 MG TABLET 650 MG PO ×2 (13:19→21:46)
--- NOTE | 2024-10-01 15:23 | PC.SS ---
Follow up note: Patient had rapid response late yesterday. Patient is on i.v. antibiotics. SS returned patient's sister's call. Marianna is listed as the alt medical decision maker and was concerned about how patient is doing medically. She is currently [place] of [place] and wants the physician team to update her on how her brother is doing. She feels like he's getting worse and wants to know the medical plan. SS updated physician team and they will be contacting her today.
--- NOTE | 2024-10-01 15:34 | ESPR_ITS ---
<Statement entered by Sade Alvarez MD - 10/02/24 06:03> I discussed with and supervised the internal review and audit compliance physician who took care of this patient. I personally saw and examined the patient and discussed the assessment and plan with the entire medicine team, including my attending Dr. Benavides, I agree with most of the assessment and plan as documented below Sade Alvarez M.D. PGY-2 Documentation for date of: 10/01/24 Subjective Subjective Interval history: No overnight events. Patient seen examined at bedside, appears in mild distress. Patient has tachypnea but denies shortness of breath, fever, chills, chest pain, abdominal pain. Reports feeling well overall. Will attempt diagnostic paracentesis CT-guided. Follow up on cultures. Confirmatory cocci IgG testing negative, fluconazole discontinued. Exam Vital Signs Temp Pulse Resp BP Pulse Ox O2 Del Method 99 F 120 H 16 126/71 95 Room Air 10/01/24 14:35 10/01/24 13:17 10/01/24 12:47 10/01/24 13:17 10/01/24 08:00 10/01/24 08:00 Narrative Exam PE: Gen: Well-developed and well-nourished. Jaundiced. HEENT: NCAT, PERRLA, EOMI, MMM. Scleral icterus. CVS: normal S1 and S2. RRR. No M/R/G. Resp: CTA B/L. No rhonchi, rales, crackles or wheezing. Abd: soft, non-tender. Abdominal distention, positive fluid wave. MSK: Good ROM in BUE & BLE. No rash. Trace edema BLE. Neuro: A&O x 3. No gross neurological deficit. Objective Labs 10/01/24 05:30 10/01/24 05:30 Labs: Laboratory Results - last 24 hr 09/30/24 09/30/24 09/30/24 15:25 16:54 17:30 WBC 12.3 H RBC 2.64 L Hgb 7.5 L Hct 22.8 L MCV 86 MCH 28.4 MCHC 32.9 RDW Std Deviation 80.6 H Plt Count 92 L D Neut % (Auto) 87 H Lymph % (Auto) 6 L Douglas % (Auto) 6 Eos % (Auto) 1 Baso % (Auto) 0 Neut # (Auto) 10.6 H Lymph # (Auto) 0.7 L Douglas # (Auto) 0.7 Eos # (Auto) 0.1 Baso # (Auto) 0.1 Immature Gran # (Auto) 0.08 H Absolute Nucleated RBC 0.00 Immature Gran % 1 H Nucleated RBC % 0 PT 22.7 H INR 2.2 H APTT 61.8 H D Sodium 135 L Potassium 3.7 Chloride 109 H Carbon Dioxide 13.0 L* Anion Gap 13 BUN 24 H Creatinine 1.2 Estim Creat Clear Calc 116.4 eGFR > 60 BUN/Creatinine Ratio 20 Glucose 140 H Calculated Osmolality 276 Lactic Acid 3.9 H 3.6 H Calcium 7.3 L Corrected Calcium 8.6 Phosphorus Magnesium Total Bilirubin 24.4 H* D AST 60 H ALT 29 Alkaline Phosphatase 74 D Total Protein 6.0 Albumin 2.4 L Globulin 3.6 H Albumin/Globulin Ratio 0.7 L Procalcitonin 2.21 H TSH Ur Collection Type Clean Catch Urine Color Drk-Yellow A Urine Clarity Turbid A Urine pH 5.5 Ur Specific [place] 1.019 Urine Protein Trace Urine Glucose (UA) Negative Urine Ketones Negative Urine Blood 2+ A Urine Nitrite Negative Urine Bilirubin 4+ A Urine Urobilinogen (Auto) Negative Ur Leukocyte Esterase Negative Urine RBC 15 H Urine WBC 8 H Ur Squamous Epith Cells 1 Urine Bacteria 2+ A Hyaline Casts < 1 09/30/24 10/01/24 10/01/24 20:17 05:30 09:32 WBC 11.8 H RBC 2.88 L Hgb 8.1 L Hct 25.1 L MCV 87 MCH 28.1 MCHC 32.3 RDW Std Deviation 78.4 H Plt Count 158 D Neut % (Auto) 86 H Lymph % (Auto) 6 L Douglas % (Auto) 5 Eos % (Auto) 1 Baso % (Auto) 1 Neut # (Auto) 10.1 H Lymph # (Auto) 0.7 L Douglas # (Auto) 0.6 Eos # (Auto) 0.2 Baso # (Auto) 0.1 Immature Gran # (Auto) 0.10 H Absolute Nucleated RBC 0.00 Immature Gran % 1 H Nucleated RBC % 0 PT INR APTT Sodium 137 Potassium 3.4 Chloride 109 H Carbon Dioxide 14.1 L* Anion Gap 14 BUN 28 H Creatinine 1.5 H Estim Creat Clear Calc 93.1 eGFR 58 L BUN/Creatinine Ratio 19 Glucose 125 H Calculated Osmolality 280 Lactic Acid 2.8 H 3.2 H 3.7 H Calcium 7.7 L Corrected Calcium 8.8 Phosphorus 2.8 Magnesium 1.9 Total Bilirubin 24.9 H* D AST 56 H ALT 39 Alkaline Phosphatase 76 Total Protein 6.2 Albumin 2.6 L Globulin 3.6 H Albumin/Globulin Ratio 0.7 L Procalcitonin TSH 0.68 Ur Collection Type Urine Color Urine Clarity Urine pH Ur Specific [place] Urine Protein Urine Glucose (UA) Urine Ketones Urine Blood Urine Nitrite Urine Bilirubin Urine Urobilinogen (Auto) Ur Leukocyte Esterase Urine RBC Urine WBC Ur Squamous Epith Cells Urine Bacteria Hyaline Casts ABG Interpretation ABG results: 09/29/24 19:27 ABG pH 7.41 ABG pCO2 24 L ABG pO2 58 L* ABG HCO3 15 L ABG O2 Saturation 92 ABG Base Excess -8 L Quality Measures Quality Measures sepsis Current suspected stage: sepsis Possible source: GI tract/intra-abdominal Blood cultures ordered: yes Antibiotic ordered: Yes Assessment & Plan Assessment Current Active Medications: Generic Name Dose Route Start Last Admin Trade Name Freq PRN Reason Stop Dose Admin Acetaminophen 650 mg 09/30/24 01:41 10/01/24 13:19 Acetaminophen 325 Mg Tablet PO 10/30/24 01:40 650 mg Q8H PRN Administration Fever >101.5 Citric Acid/Sodium Citrate 30 ml 09/30/24 11:30 10/01/24 08:51 Citric Acid/Sodium Citr 15 Ml Udc (Bicitra) PO 10/30/24 11:29 30 ml BID CATHY Administration Furosemide 20 mg 10/01/24 09:00 10/01/24 08:51 Furosemide Inj 10 Mg/Ml Vial 2 Ml IVP 10/31/24 08:59 20 mg QDAY CATHY Administration Piperacillin/Tazobactam/Dextrose 3.375 gm in 50 mls @ 12.5 mls/hr 09/30/24 14:00 10/01/24 13:20 Zosyn IV 10/07/24 13:59 12.5 mls/hr Q8HR CATHY Administration Protocol Vancomycin HCl/Dextrose 250 mls @ 120 mls/hr 10/01/24 10:00 10/01/24 10:47 Vancomycin/D5w 1,250 Mg Ivpb IV 10/08/24 09:59 120 mls/hr Q12H CATHY Administration Protocol Lactulose 20 gm 09/30/24 02:45 10/01/24 12:46 Lactulose Syrup 20 Gm/30 Ml Udc PO 10/30/24 02:44 Not Given QID CATHY Protocol Midodrine 10 mg 09/30/24 14:00 10/01/24 13:17 Midodrine 5 Mg Tablet PO 10/30/24 13:59 Not Given TID CATHY Ondansetron HCl 4 mg 09/30/24 01:50 Ondansetron Inj 2 Mg/Ml Inj 2 Ml IV 10/30/24 01:49 Q6H PRN NAUSEA OR VOMITING Protocol Pantoprazole Sodium 40 mg 09/30/24 09:00 10/01/24 08:51 Pantoprazole Inj 40 Mg Vial IVP 10/30/24 08:59 40 mg QDAY CATHY Administration Pharmacy Consult 1 each 09/30/24 02:31 Pharmacy Renal Dose Adjustment 1 Ea XX 10/30/24 02:30 PRN PRN CONSULT Pharmacy Consult 1 each 09/30/24 16:30 Vancomycin Pharmacy To Dose 1 Each Each IV 10/30/24 16:29 QDAY PRN CONSULT Phytonadione 10 mg 09/30/24 09:00 10/01/24 08:49 Phytonadione Inj 10 Mg/Ml Amp SC 10/03/24 08:59 10 mg QDAY CATHY Administration Rifaximin 550 mg 09/30/24 02:45 10/01/24 08:50 Rifaximin 550 Mg Tablet PO 10/07/24 02:44 550 mg BID CATHY Administration Spironolactone 12.5 mg 09/30/24 11:30 10/01/24 08:50 Spironolactone 25 Mg Tablet PO 10/30/24 11:29 12.5 mg BID CATHY Administration Plan 44-year-old male patient with past medical history of 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 Patient was admitted for management of acute metabolic and encephalopathy. #Sepsis secondary to hospital-acquired pneumonia #Lactic acidosis # Coccidiomycosis ruled out Patient was recently discharged from the hospital 1 week ago when he was admitted for treatment of hepatic encephalopathy. Today patient is complaining of chills and productive cough. Met sepsis criteria with tachycardia, elevated WBCs, and positive chest x-ray for lobar infiltrate. His pH was normal at 7.41, pCO2 of 24, O2 58, HCO3 of 15 O2 saturation 92. Upon presentation patient was lethargic and confused, his vitals were normal except pulse rate of 112, CBC was only significant for 12.1 WBCs. Lactic acid was 3.4, trended to 3.8. Confirmatory IgG cocci testing was negative, fluconazole discontinued. -Follow-up on the blood cultures and urine cultures -Zosyn 3.375 g IV every 8 hours -Oxygen as needed -Follow-up on MRSA screening, Legionella test -CT guided diagnostic paracentesis to eval for SBP #Acute metabolic encephalopathy, most likely hepatic encephalopathy, resolved #Hyperbilirubinemia #End-stage liver disease #Ascites #History of esophageal varices s/p banding On admission his hemoglobin stable at 8.7. Coagulation panel showed prolonged PTT of 21.4, INR of 2.1, PTT 49.7, however there was no signs of active bleeding. Total bilirubin 25.1, magnesium 1.5, total bilirubin of 25.1, AST 68, ALT 46 with a ratio of 2:1 which possibly indicate exogenous hepatic consult such as alcohol or drugs. Ammonia level of 46, Pro-Adin 1.86. Patient has history of recurrent hepatic encephalopathy despite compliance to medications. Patient passed bedside swallow screen. Patient was sent to ultrasound-guided paracentesis, however there is not enough ascitic fluid for drainage. Patient is ascitic, lactic acid elevated at 3.8, serum bicarb 13.2. -Lactulose 20 g IV 3 times daily to achieve 3 bowel movements per day -Neurochecks every 4 hours -Seizures precautions -Rifaximin p.o. twice daily -Vitamin K 10 mg subcu 3 times daily -Start the patient on albumin 25 g for 1 day 3 times daily challenge -Avoid sedatives -Antibiotics as above -Lasix 20 mg IV daily -Spironolactone 12.5 mg p.o. twice daily -Bicitra 30 mL p.o. twice daily -Midodrine 10 mg p.o. 3 times daily as needed to maintain BP -Diagnostic paracentesis as above #SMILEY prerenal vs hepatorenal syndrome BUN of 24, creatinine of 1.2 which indicate SMILEY as his last serum creatinine 1 week ago was 0.8. -Monitor daily labs -Renally dose meds -Avoid nephrotoxins DVT prophylaxis: SCDs GI prophylaxis: Protonix Diet: Regular, low-sodium Lines: Peripheral IV Code status: Full code Plan of care discussed with senior resident Dr. Alvarez PGY?[address] Benav[address]. Scott Munguia MD PGY?1 Attending Provider Attestation/Addendum I attest that I was physically present for the evaluation, physical examination, lab and imaging review of the patient with the residents. I discussed the case with the residents and agree with the findings and plans of care as documented above. At bedside today, patient complains of chills, appears to be in mild distress. Lab results are stable except for tachycardia. Has distended abdomen on examination. Abdomen/pelvis CT was obtained, which shows left base pneumonia, cirrhosis, moderate ascites, prominent splenomegaly, esophageal varices, significant hypertrophy of left kidney and hepatic colopathy. Discussed with radiology, ordered CT-guided paracentesis for diagnostic/therapeutic tap. Continues to be on IV Zosyn for possible pneumonia/SBP. Confirmatory test from [facility] was negative for coccidioidomycosis, we will discontinue fluconazole. Continues to be on lactulose, rifaximin, vitamin K, Lasix, spironolactone, Bicitra. Parish Benavides MD
[2024-10-01] MEDS: ONDANSETRON INJ 2 MG/ML INJ 2 ML 4 MG IV (18:18)
--- NOTE | 2024-10-01 23:36 | PC.RT ---
called Dr. watson for pt due to pt RR, wheezing, per he will come assess pt.
--- NOTE | 2024-10-01 23:50 | PC.NURSE ---
Dr. Dobson in to see patient, pt has been having more shortness of breath, O2 sats 86% placed on 2LNC O2 sats 93%, new order for CXR, CMP, and Lactic acid, will continue to monitor.
--- NOTE | 2024-10-01 23:52 | XR_ITS ---
Examination: AP chest single view Technique: AP upright portable chest single view Exam date and time: 11:00 PM Comparison September 30, 2024 Indications: SOB today. Findings: Interval extensive bilateral lung opacity Normal heart size No pneumothorax Osseous structures are intact Impression: Interval diffuse bilateral pneumonia
[2024-10-02] VITALS (83 sets, daily range): BP systolic 46–198; BP diastolic 32–90; PULSE 101–137; RESP 16–100; TEMP 36.2–38.1; O2SAT 83–100
[2024-10-02 01:02] LABS: Lactate (Lactic Acid) 2.8 mMol/L (0.4-2.0)
[2024-10-02] MEDS: FUROSEMIDE INJ 10 MG/ML 4ML VIAL 40 MG IVP (01:32)
[2024-10-02 01:56] LABS: Alanine Aminotransferase 44 U/L (10-49); Albumin, Serum 2.3 gm/dL (3.5-5.0); Albumin/Globulin Ratio 0.6 (1.2-2.2); Alkaline Phosphatase 69 U/L (46-116); Anion Gap 13 (7-16); Aspartate Amino Transferase 76 U/L (0-34); BUN/Creatinine Ratio 25 Ratio (12-20); Blood Urea Nitrogen 30 mg/dL (9-23); Calcium 7.7 mg/dL (8.3-10.6); Calcium (Corrected) 9.1 mg/dL (8.5-10.1); Chloride 110 mMol/L (98-107); Creatinine (Component) 1.2 mg/dL (0.6-1.3); Estimated Creatinine Clearance 72.7 mL/min (>60); Globulin 3.7 gm/dL (2.3-3.5); Glucose 141 mg/dL (74-106); Osmolality,Calculated 282 (275-295); Potassium 2.9 mMol/L (3.4-5.1); Sodium 137 mMol/L (136-145); eGFR > 60 See Note
[2024-10-02 02:18] LABS: Bilirubin,Total 21.7 mg/dL (0.3-1.2)
[2024-10-02 03:58] LABS: Reflex Lactate? Y
[2024-10-02 05:38] LABS: Lactic Acid, 3 HR 2.6 mMol/L (0.4-2.0)
[2024-10-02 06:03] LABS: Basophils # (Auto) 0.1 Thou/mm3 (0.0-0.2); Basophils % (Auto) 1 % (0-2.5); Eosinophils # (Auto) 0.1 Thou/mm3 (0.0-0.5); Eosinophils % (Auto) 1 % (0-10); Hematocrit 25.2 % (41.0-53.0); Immature Granulocytes % (Auto) 1 % (0-0); Immature Granulocytes Auto 0.11 Thou/mm3 (0.00-0.00); Lymphocytes # (Auto) 0.9 Thou/mm3 (1.0-4.8); Lymphocytes % (Auto) 7 % (10-50); Mean Corpuscular HGB Conc 32.5 g/dl (31.0-37.0); Mean Corpuscular Hemoglobin 28.2 pg (25.0-35.0); Mean Corpuscular Volume 87 fL (80-100); Monocytes # (Auto) 0.5 Thou/mm3 (0.0-0.8); Monocytes % (Auto) 4 % (0-12); Neutrophils # (Auto) 12.3 Thou/mm3 (1.8-7.7); Neutrophils % (Auto) 88 % (37-80); Nucleated Red Blood Cell % 0 /100 WBC (0); Platelet Count 147 Thou/mm3 (140-440); RDW Standard Deviation 76.6 fL (35.1-43.9); Red Blood Count 2.91 Miln/mm3 (4.50-5.90)
[2024-10-02 06:09] LABS: Hemoglobin 8.2 g/dL (13.5-16.0)
[2024-10-02 06:22] LABS: Alanine Aminotransferase 44 U/L (10-49); Albumin, Serum 2.3 gm/dL (3.5-5.0); Albumin/Globulin Ratio 0.6 (1.2-2.2); Alkaline Phosphatase 68 U/L (46-116); Anion Gap 13 (7-16); Aspartate Amino Transferase 80 U/L (0-34); BUN/Creatinine Ratio 24 Ratio (12-20); Blood Urea Nitrogen 29 mg/dL (9-23); Calcium 7.3 mg/dL (8.3-10.6); Calcium (Corrected) 8.7 mg/dL (8.5-10.1); Carbon Dioxide 16.2 mMol/L (20.0-31.0); Chloride 106 mMol/L (98-107); Creatinine (Component) 1.2 mg/dL (0.6-1.3); Estimated Creatinine Clearance 72.7 mL/min (>60); Globulin 3.7 gm/dL (2.3-3.5); Glucose 122 mg/dL (74-106); Magnesium 1.6 mg/dL (1.6-2.6); Osmolality,Calculated 276 (275-295); Phosphorous 2.7 mg/dL (2.4-5.1); Potassium 3.2 mMol/L (3.4-5.1); Sodium 135 mMol/L (136-145); eGFR > 60 See Note
[2024-10-02] MEDS: MIDODRINE 5 MG TABLET 10 MG PO ×2 (06:36→22:05)
[2024-10-02] MEDS: LACTULOSE SYRUP 20 GM/30 ML UDC PO ×3 (06:36→21:55)
[2024-10-02] MEDS: PIPER/TAZO 3.375 GM PREMIX 3.375 GM/50 ML BAG IV ×2 (06:36→22:05)
[2024-10-02 06:57] LABS: Bilirubin,Total 23.5 mg/dL (0.3-1.2)
[2024-10-02] MEDS: PANTOPRAZOLE INJ 40 MG VIAL IVP ×2 (08:17→21:56)
[2024-10-02] MEDS: SPIRONOLACTONE 25 MG TABLET 12.5 MG PO (08:18)
[2024-10-02] MEDS: CITRIC ACID/SODIUM CITR 15 ML UDC (BICITRA) 30 ML PO ×2 (08:18→21:56)
[2024-10-02] MEDS: rifaximin 550 MG TABLET PO ×2 (08:18→21:56)
[2024-10-02] MEDS: PHYTONADIONE INJ 10 MG/ML AMP SC (08:18)
[2024-10-02] MEDS: FUROSEMIDE INJ 10 MG/ML VIAL 2 ML 20 MG IVP (08:19)
--- NOTE | 2024-10-02 09:56 | PC.NURSE ---
notified cony leiva that eneida will do the paracentesis under ultrasound guide and order need to be change.
--- NOTE | 2024-10-02 10:01 | XR_ITS ---
Examination: Abdomen sonogram, Limited Date and time of exam: October 02, 2024 1136 hours INDICATIONS: Abdominal distention this week Technique: Real-time machado scale transabdominal sonographic images of the upper abdomen obtained. Findings: Mild ascitic fluid IMPRESSION: Mild ascitic fluid
[2024-10-02 10:08] LABS: Vancomycin,Trough 24.3 mcg/mL (5.0-10.0)
[2024-10-02] MEDS: Magnesium Sulfate 4 GM Ivpb 4 GM/50 ML BAG IV (11:10)
[2024-10-02] MEDS: POTASSIUM CHLORIDE 20 mEq TABCR 40 MEQ PO (11:10)
--- NOTE | 2024-10-02 11:50 | PC.NURSE ---
Dr. Brito notified of pt RR in the 50's, high flow O2 initiated at this time.
[2024-10-02 12:08] LABS: Base Excess -10 (-3-3); HCO3 14 mEq/L (20-26); Inspired Oxygen, FIO2 100 %; O2 Saturation 99 % (91-98); PCO2 24 mmHg (32.0-48.0); PO2 108 mmHg (83-108); pH, Arterial 7.39 (7.35-7.45)
[2024-10-02 12:14] LABS: Allen Test Not Performed; Puncture Site Right Radial
--- NOTE | 2024-10-02 13:40 | ESPR_ITS ---
<Statement entered by Sade Alvarez MD - 10/03/24 05:41> Patient seen and examined at bedside. Overnight, RT noticed patient started requiring increased oxygen requirements. Night team ordered chest x-ray which showed worsening bilateral infiltrates diffusely. Patient progressively worsened, requiring high flow nasal cannula. Patient was on a trial of BiPAP however patient was unable to tolerate due to high work of breathing and continued tachypnea and tachycardia. Based on patient's current O2 requirements and FiO2, patient meets criteria for moderate ARDS. ICU was consulted and transfered due to worsening respiratory status most likely requiring intubation. Patient agreed with intubation if patient needed intervention, as well as his POC, Marianna, one of his sisters, reachable by phone. I discussed with and supervised the international travel consultant physician who took care of this patient. I personally saw and examined the patient and discussed the assessment and plan with the entire medicine team, including my attending , I agree with most of the assessment and plan as documented below Sade Alvarez M.D. PGY-2 Disclaimer: Despite multiple revisions, due to the dictation software being used, the document bellow may not be free of grammatical errors including phonetic/typographic errors. However, this does not deter from our commitment to providing health care in the patient's best interest in mind. <Statement entered by Hattie Goins MD - 10/02/24 19:44> I discussed with and supervised the international travel consultant physician who took care of this patient. I personally saw and examined the patient and discussed the assessment and plan with the entire medicine team, including my attending Dr. Maciel, I agree with the assessment and plan as documented below Patient seen and examined at bedside today. Labs and imaging reviewed. This morning the bedside patient continued to present increased work of breathing tachypneic, last night x-ray showed worsening bilateral opacities, for which patient was placed initially on high flow nasal cannula, later patient was transition to BiPAP that he did not tolerate and became more tachypneic with increased work of breathing for which ICU was consulted and patient was transferred to the ICU for intubation. Hattie Goins MD PGY-3 Disclaimer: Despite multiple revisions, due to the dictation software being used, the document bellow may not be free of grammatical errors including phonetic/typographic errors. However, this does not deter from our commitment to providing health care in the patient's best interest in mind. Documentation for date of: 10/02/24 Subjective Subjective Interval history: Overnight: Patient had worsening shortness of breath, repeat chest x-ray was taken additional 40 mg IV Lasix given. Repeat chest x-ray showed diffuse patchy infiltrates worse than previous, concerning for ARDS. Patient seen examined at bedside. Patient appears moderately distressed, tachypneic, complaining of shortness of breath and fatigue. Denies fevers, chills, chest pain, abdominal pain. Patient was upgraded to ICU for worsening respiratory status, likely intubation. Exam Vital Signs Temp Pulse Resp BP Pulse Ox O2 Del Method O2 Flow Rate 97.2 F 115 H 32 H 127/80 90 L Nasal Cannula 30 10/02/24 08:00 10/02/24 13:05 10/02/24 13:05 10/02/24 08:19 10/02/24 08:00 10/02/24 08:00 10/02/24 13:05 FiO2 100 10/02/24 13:05 Narrative Exam PE: Gen: Well-developed and well-nourished. Jaundiced. Moderately distressed, increased work of breathing. HEENT: NCAT, PERRLA, EOMI, MMM. Scleral icterus. CVS: normal S1 and S2. RRR. No M/R/G. Resp: CTA B/L. No rhonchi, rales, crackles or wheezing. Tachypneic. Abd: soft, non-tender. Abdominal distention, positive fluid wave. MSK: Good ROM in BUE & BLE. No rash. Trace edema BLE. Neuro: A&O x 3. No gross neurological deficit. Objective Labs 10/03/24 04:20 10/03/24 04:20 Labs: Laboratory Results - last 24 hr 10/02/24 10/02/24 10/02/24 00:23 05:08 09:30 WBC 14.0 H RBC 2.91 L Hgb 8.2 L Hct 25.2 L MCV 87 MCH 28.2 MCHC 32.5 RDW Std Deviation 76.6 H Plt Count 147 Neut % (Auto) 88 H Lymph % (Auto) 7 L [place] % (Auto) 4 Eos % (Auto) 1 Baso % (Auto) 1 Neut # (Auto) 12.3 H Lymph # (Auto) 0.9 L [place] # (Auto) 0.5 Eos # (Auto) 0.1 Baso # (Auto) 0.1 Immature Gran # (Auto) 0.11 H Absolute Nucleated RBC 0.00 Immature Gran % 1 H Nucleated RBC % 0 Puncture Site ABG pH ABG pCO2 ABG pO2 ABG HCO3 ABG O2 Saturation ABG Base Excess FiO2 Sodium 137 135 L Potassium 2.9 L D 3.2 L Chloride 110 H 106 Carbon Dioxide 14.0 L* 16.2 L Anion Gap 13 13 BUN 30 H 29 H Creatinine 1.2 1.2 Estim Creat Clear Calc 72.7 72.7 eGFR > 60 > 60 BUN/Creatinine Ratio 25 H 24 H Glucose 141 H 122 H Calculated Osmolality 282 276 Lactic Acid 2.8 H 2.6 H Calcium 7.7 L 7.3 L Corrected Calcium 9.1 8.7 Phosphorus 2.7 Magnesium 1.6 Total Bilirubin 21.7 H* D 23.5 H* D AST 76 H 80 H ALT 44 44 Alkaline Phosphatase 69 68 Total Protein 6.0 6.0 Albumin 2.3 L 2.3 L Globulin 3.7 H 3.7 H Albumin/Globulin Ratio 0.6 L 0.6 L Vancomycin Trough 24.3 H* 10/02/24 11:59 WBC RBC Hgb Hct MCV MCH MCHC RDW Std Deviation Plt Count Neut % (Auto) Lymph % (Auto) [place] % (Auto) Eos % (Auto) Baso % (Auto) Neut # (Auto) Lymph # (Auto) [place] # (Auto) Eos # (Auto) Baso # (Auto) Immature Gran # (Auto) Absolute Nucleated RBC Immature Gran % Nucleated RBC % Puncture Site Right Radial ABG pH 7.39 ABG pCO2 24 L ABG pO2 108 D ABG HCO3 14 L ABG O2 Saturation 99 H ABG Base Excess -10 L FiO2 100 Sodium Potassium Chloride Carbon Dioxide Anion Gap BUN Creatinine Estim Creat Clear Calc eGFR BUN/Creatinine Ratio Glucose Calculated Osmolality Lactic Acid Calcium Corrected Calcium Phosphorus Magnesium Total Bilirubin AST ALT Alkaline Phosphatase Total Protein Albumin Globulin Albumin/Globulin Ratio Vancomycin Trough ABG Interpretation ABG results: 09/29/24 10/02/24 19:27 11:59 ABG pH 7.41 7.39 ABG pCO2 24 L 24 L ABG pO2 58 L* 108 D ABG HCO3 15 L 14 L ABG O2 Saturation 92 99 H ABG Base Excess -8 L -10 L Quality Measures Quality Measures sepsis Current suspected stage: sepsis Possible source: GI tract/intra-abdominal Blood cultures ordered: yes Antibiotic ordered: Yes Assessment & Plan Assessment Current Active Medications: Generic Name Dose Route Start Last Admin Trade Name Freq PRN Reason Stop Dose Admin Acetaminophen 650 mg 09/30/24 01:41 10/01/24 21:46 Acetaminophen 325 Mg Tablet PO 10/30/24 01:40 650 mg Q8H PRN Administration Fever >101.5 Citric Acid/Sodium Citrate 30 ml 09/30/24 11:30 10/02/24 08:18 Citric Acid/Sodium Citr 15 Ml Udc (Bicitra) PO 10/30/24 11:29 30 ml BID CATHY Administration Furosemide 20 mg 10/01/24 09:00 10/02/24 08:19 Furosemide Inj 10 Mg/Ml Vial 2 Ml IVP 10/31/24 08:59 20 mg QDAY CATHY Administration Piperacillin/Tazobactam/Dextrose 3.375 gm in 50 mls @ 12.5 mls/hr 09/30/24 14:00 10/02/24 06:36 Zosyn IV 10/07/24 13:59 12.5 mls/hr Q8HR CATHY Administration Protocol Vancomycin HCl/Dextrose 250 mls @ 120 mls/hr 10/01/24 10:00 10/02/24 10:30 Vancomycin/D5w 1,250 Mg Ivpb IV 10/08/24 09:59 Not Given Q12H CATHY Protocol Lactulose 20 gm 09/30/24 02:45 10/02/24 06:36 Lactulose Syrup 20 Gm/30 Ml Udc PO 10/30/24 02:44 20 gm QID CATHY Administration Protocol Midodrine 10 mg 09/30/24 14:00 10/02/24 06:36 Midodrine 5 Mg Tablet PO 10/30/24 13:59 10 mg TID CATHY Administration Ondansetron HCl 4 mg 09/30/24 01:50 10/01/24 18:18 Ondansetron Inj 2 Mg/Ml Inj 2 Ml IV 10/30/24 01:49 4 mg Q6H PRN Administration NAUSEA OR VOMITING Protocol Pantoprazole Sodium 40 mg 09/30/24 09:00 10/02/24 08:17 Pantoprazole Inj 40 Mg Vial IVP 10/30/24 08:59 40 mg QDAY CATHY Administration Pharmacy Consult 1 each 09/30/24 02:31 Pharmacy Renal Dose Adjustment 1 Ea XX 10/30/24 02:30 PRN PRN CONSULT Pharmacy Consult 1 each 09/30/24 16:30 Vancomycin Pharmacy To Dose 1 Each Each IV 10/30/24 16:29 QDAY PRN CONSULT Phytonadione 10 mg 09/30/24 09:00 10/02/24 08:18 Phytonadione Inj 10 Mg/Ml Amp SC 10/03/24 08:59 10 mg QDAY CATHY Administration Rifaximin 550 mg 09/30/24 02:45 10/02/24 08:18 Rifaximin 550 Mg Tablet PO 10/07/24 02:44 550 mg BID CATHY Administration Spironolactone 12.5 mg 09/30/24 11:30 10/02/24 08:18 Spironolactone 25 Mg Tablet PO 10/30/24 11:29 12.5 mg BID CATHY Administration Plan 44-year-old male patient with past medical history of 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 Patient was admitted for management of acute metabolic and encephalopathy. #Sepsis secondary to hospital-acquired pneumonia #Lactic acidosis #Coccidiomycosis ruled out #Acute hypoxic respiratory failure, insufficient respiratory compensation for metabolic acidosis #Moderate ARDS Patient was recently discharged from the hospital 1 week ago when he was admitted for treatment of hepatic encephalopathy. Today patient is complaining of chills and productive cough. Met sepsis criteria with tachycardia, elevated WBCs, and positive chest x-ray for lobar infiltrate. His pH was normal at 7.41, pCO2 of 24, O2 58, HCO3 of 15 O2 saturation 92. Upon presentation patient was lethargic and confused, his vitals were normal except pulse rate of 112, CBC was only significant for 12.1 WBCs. Lactic acid was 3.4, trended to 3.8. Confirmatory IgG cocci testing was negative, fluconazole discontinued. Patient developed worsening respiratory distress with tachypnea and increased work of breathing, ABGs showed failure of compensation for metabolic acidosis. Patient was upgraded to ICU, likely to be intubated. Patient sister (point contact) was updated regarding patient's status. Moderate ARDS based on SpO2 and FiO2, as well as diffuse patchy infiltrates on chest x-ray. -Follow-up on the blood cultures and urine cultures -Zosyn 3.375 g IV every 8 hours -Vancomycin pharmacy dosing -Oxygen as needed, BiPAP -Follow-up on MRSA screening, Legionella test -US guided diagnostic paracentesis to eval for SBP -Lung protective strategies -Upgrade to ICU #Acute metabolic encephalopathy, most likely hepatic encephalopathy, resolved #Hyperbilirubinemia #End-stage liver disease #Ascites #History of esophageal varices s/p banding On admission his hemoglobin stable at 8.7. Coagulation panel showed prolonged PTT of 21.4, INR of 2.1, PTT 49.7, however there was no signs of active bleeding. Total bilirubin 25.1, magnesium 1.5, total bilirubin of 25.1, AST 68, ALT 46 with a ratio of 2:1 which possibly indicate exogenous hepatic consult such as alcohol or drugs. Ammonia level of 46, Pro-Adin 1.86. Patient has history of recurrent hepatic encephalopathy despite compliance to medications. Patient passed bedside swallow screen. Patient was sent to ultrasound-guided paracentesis, however there is not enough ascitic fluid for drainage. Patient is ascitic, lactic acid elevated at 3.8, serum bicarb 13.2. -Lactulose 20 g IV 3 times daily to achieve 3 bowel movements per day -Neurochecks every 4 hours -Seizures precautions -Rifaximin p.o. twice daily -Vitamin K 10 mg subcu 3 times daily -Start the patient on albumin 25 g for 1 day 3 times daily challenge -Avoid sedatives -Antibiotics as above -Lasix 20 mg IV daily -Spironolactone 12.5 mg p.o. twice daily -Bicitra 30 mL p.o. twice daily -Midodrine 10 mg p.o. 3 times daily as needed to maintain BP -Diagnostic paracentesis as above #SMILEY prerenal vs hepatorenal syndrome BUN of 24, creatinine of 1.2 which indicate SMILEY as his last serum creatinine 1 week ago was 0.8. -Monitor daily labs -Renally dose meds -Avoid nephrotoxins DVT prophylaxis: SCDs GI prophylaxis: Protonix Diet: Regular, low-sodium Lines: Peripheral IV Code status: Full code Plan of care discussed with senior resident Dr. Alvarez PGY?[address] Goins PGY?3, and attending Dr. Maciel. Scott Munguia MD PGY?1 Attending Provider Attestation/Addendum I have examined the patient, reviewed labs and imaging findings, discussed the case with the resident(s), and reviewed entered orders. I agree with the plan of care as outlined in this note, with these additional summaries/recommendations: Patient seen at bedside. Patient noted to be using accessory muscles and has hypoxia at bedside. Will place patient on high flow nasal cannula and possibly BiPAP if needed. Chest x-ray shows interval diffuse bilateral pneumonia. We will continue IV antibiotics and keep patient dry with daily Lasix. ABG shows pO2 108 and pH 7.39. 09/30 blood cultures show no growth at 24 hours. We will obtain CTA chest to rule out pulmonary embolism as cause of tachycardia, hypoxia, and recurrent fever. Patient will also be evaluated for paracentesis to rule out bacterial peritonitis although suspicion is low at this time. Patient was found to have altered mental status on admission secondary to hepatic encephalopathy which has now resolved. We will continue lactulose titrated to 2-3 bowel movements a day and rifaximin. Patient has underlying decompensated cirrhosis and prognosis is guarded. Patient has signs of synthetic liver dysfunction with coagulopathy, hypoalbuminemia, and hyperbilirubinemia. Patient and sister counseled on the importance of following outpatient for liver transplant evaluation. Lactic acidosis present and most likely type B secondary to liver disease and decreased clearance. Mild hypokalemia present and replacement given. Patient was previously on fluconazole for cocci although titers returned negative and discontinued. Acute kidney injury present on admission has resolved. Monitor. Continue midodrine for chronic hypotension. Patient and sister updated on the plan and in agreement. Repeat hematology and chemistry panel in AM. Dr. Janell MD
--- NOTE | 2024-10-02 14:40 | PC.SS ---
Follow up note: Patient currently on high flow 02. SS spoke to patient's daughter Marianna who states she needs more communication and an update. She has questions about [facility] and a possible transfer. SS updated physician team to contact her.
[2024-10-02 17:19] LABS: Base Excess -10 (-3-3); HCO3 15 mEq/L (20-26); Inspired Oxygen, FIO2 60 %; O2 Saturation 97 % (91-98); PCO2 32 mmHg (32.0-48.0); PO2 86 mmHg (83-108); pH, Arterial 7.29 (7.35-7.45)
[2024-10-02 17:20] LABS: Allen Test Performed/OK; Puncture Site Right Radial
--- NOTE | 2024-10-02 17:26 | XR_ITS ---
Examination: AP chest single view TECHNIQUE: AP portable supine single view Examination time: October 02, 2024 1654 hours Comparison October 01, 2024 INDICATIONS: Hypoxic respiratory failure today, severe pneumonia on chest film October 01, 2024 FINDINGS: More severe dense opacification throughout the lungs Cardiac contour mildly prominent Endotracheal tube tip 3.5 cm above [place]. No pneumothorax IMPRESSION: Worsening severe bilateral pneumonia ARDS pattern Endotracheal tube tip 3.5 cm above [place]
[2024-10-02] MEDS: ETOMIDATE INJ 2 MG/ML VIAL 10 ML 15 MG IVP (17:46)
[2024-10-02] MEDS: SUCCINYLCHOLINE INJ 20 MG/ML VIAL 10 ML 100 MG IV (17:46)
[2024-10-02] MEDS: fentaNYL 2,500 MCG/250 ML BAG 2,500 MCG/250 ML BAG 15 MCG IV (17:55)
[2024-10-02] MEDS: PROPOFOL 1,000 MG IVPB 1,000 MG/100 ML VIAL 2.273 MG IV (18:05)
--- NOTE | 2024-10-02 18:05 | ESCONSULT_ITS ---
<Statement entered by Tierney Capps MD - 10/02/24 19:49> The patient, a 44-year-old male with a history of end-stage liver disease and alcoholic cirrhosis (status post esophageal varices banding), presented to the emergency department (ED) with acute shortness of breath. Upon further evaluation, he was diagnosed with sepsis secondary to pneumonia (PNA) and subsequently admitted for treatment. Initially, the patient was placed on telemetry monitoring. However, his clinical condition deteriorated as he became progressively tachypneic and tachycardic. Despite the initiation of nasal cannula oxygen, and later high-flow oxygen, his work of breathing increased significantly. ABG revealed a pH of 7.29 and a pCO2 of 32, suggesting the presence of metabolic acidosis with compensatory respiratory alkalosis. In an effort to reduce his work of breathing, the patient was placed on BiPAP. However, despite this intervention, he continued to be tachypneic and had difficulty tolerating the BiPAP. Due to persistent respiratory distress and clinical worsening, an ICU consultation was obtained. Chest X-ray demonstrated worsening bilateral pneumonia with an ARDS pattern, leading to the decision to transfer the patient to the ICU for further management. Mechanical ventilation was initiated following intubation to manage his respiratory failure more effectively. I personally saw and examined the patient and discussed the assessment and plan with the entire medicine team, including my attending Dr Chairez. , Tierney Capps M.D. PGY-2 Disclaimer: Despite multiple revisions, due to the dictation software being used, the document bellow may not be free of grammatical errors including phonetic/typographic errors. However, this does not deter from our commitment to providing health care in the patient's best interest in mind. HPI Data of Consult Consult date: 10/02/24 Requesting Physician: Suresh Maciel MD Admitting Provider: Oneal Cheatham MD Attending Provider: Suresh Maciel MD Primary Care Provider: Physician No Primary/Family Consult Narrative History of present illness: The patient is a 44-year-old male with a past medical history of end-stage liver disease, alcoholic liver cirrhosis with esophageal varices status post banding who presented to the ED on 09/30/2024, brought in by sister due to altered mental status that was noticed about a day prior to presentation. On examination in the ED, patient was AAOx3, however was somnolent. The patient reports that he has been alcohol free for the last 2 months, has been compliant with all medications including lactulose, titrating for 4-5 bowel movements a day. He additionally reported cough and chills about 3 days prior to presentation, but no nausea or vomiting, hematemesis or hematochezia. Patient has previously been admitted to the hospital multiple times for acute encephalopathy. Last endoscopy done about 2 weeks ago showed grade 1 esophageal varices as well as portal gastropathy. Initial labs in the ED significant for leukocytosis of 12.1, anemia with stable hemoglobin of 8.7. Coag panel showed prolonged PTT 21.4, INR 1. Chemistry panel significant for hypokalemia, creatinine 1.2, lactic acidosis, hyperbilirubinemia and slightly elevated transaminases. Patient was admitted for acute encephalopathy. Chest x-ray was done which showed lobar infiltrates as patient met 2/4 SIRS criteria with possible source, he was started on antibiotics for sepsis secondary to pneumonia. Cultures have been negative except for yeast and blood. The patient was initially hypoxic, started on nasal cannula as well as high flow and in early hours of today was put on BiPAP. Last ABG done showed a pH of 7.29 with pCO2 of 32 and bicarb of 15. The patient continued to be tachypneic and tachycardic, with increased work of breathing and was admitted to the ICU for intubation. cc:: cc: Suresh Maciel MD Review of Systems Review of Systems ROS Unobtainable: unobtainable due to medical condition Exam Vital Signs Temp Pulse Resp BP Pulse Ox O2 Del Method O2 Flow Rate 97.4 F 130 H 39 H 131/88 H 96 High Flow Nasal Cannula 30 10/02/24 16:00 10/02/24 16:20 10/02/24 16:20 10/02/24 16:00 10/02/24 16:20 10/02/24 12:00 10/02/24 13:05 FiO2 60 10/02/24 16:20 Narrative Exam GENERAL: AAOX3, BiPAP on and respiratory distress NEURO: [employer] grossly intact, moves extremities x4 HEENT: Dry mucosa. Icteric sclera CARDIO: No chest pain on palpation. Heart RRR, no obvious murmurs PULM: Crackles bilaterally. GI: Abdomen firm, distended, positive fluid wave. 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 SKIN/MSK/EXT: Icteric skin. Bilateral pitting edema. Results Labs 10/03/24 04:20 10/03/24 04:20 Labs: Short CBC 10/02/24 Range/Units 05:08 WBC 14.0 H (3.8-10.6) Thou/mm3 Hgb 8.2 L (13.5-16.0) g/dL Hct 25.2 L (41.0-53.0) % Plt Count 147 (140-440) Thou/mm3 BMP 10/02/24 10/02/24 00:23 05:08 Sodium 137 135 L Potassium 2.9 L D 3.2 L Chloride 110 H 106 Carbon Dioxide 14.0 L* 16.2 L BUN 30 H 29 H Creatinine 1.2 1.2 Glucose 141 H 122 H Calcium 7.7 L 7.3 L Liver Function 10/02/24 10/02/24 Range/Units 00:23 05:08 Total Bilirubin 21.7 H* D 23.5 H* D (0.3-1.2) mg/dL AST 76 H 80 H (0-34) U/L ALT 44 44 (10-49) U/L Alkaline Phosphatase 69 68 (46-116) U/L Albumin 2.3 L 2.3 L (3.5-5.0) gm/dL ABG Interpretation ABG results: 09/29/24 10/02/24 10/02/24 19:27 11:59 17:09 ABG pH 7.41 7.39 7.29 L D ABG pCO2 24 L 24 L 32 ABG pO2 58 L* 108 D 86 D ABG HCO3 15 L 14 L 15 L ABG O2 Saturation 92 99 H 97 ABG Base Excess -8 L -10 L -10 L Quality Measures Quality Measures sepsis Current suspected stage: sepsis Possible source: GI tract/intra-abdominal Blood cultures ordered: yes Antibiotic ordered: Yes Medications Home Medications and Allergies Home Medications ?Medication ?Instructions ?Recorded ?Confirmed ?Type prednisone 20 mg tablet 20 mg PO DAILY 09/30/2409/14 History Allergies Allergy/AdvReac Type Severity Reaction Status Date / Time No Known Allergies Allergy Verified 09/13/24 10:55 Visit Medications Acetaminophen (Acetaminophen 325 Mg Tablet) 650 mg PO Q8H PRN PRN Reason: Fever >101.5 Stop: 10/30/24 01:40 Last Admin: 10/01/24 21:46 Dose: 650 mg Citric Acid/Sodium Citrate (Citric Acid/Sodium Citr 15 Ml Udc (Bicitra)) 30 ml PO BID [facility] Stop: 10/30/24 11:29 Last Admin: 10/02/24 08:18 Dose: 30 ml Furosemide (Furosemide Inj 10 Mg/Ml Vial 2 Ml) 20 mg IVP QDAY [facility] Stop: 10/31/24 08:59 Last Admin: 10/02/24 08:19 Dose: 20 mg Piperacillin/Tazobactam/Dextrose (Zosyn) 3.375 gm in 50 mls @ 12.5 mls/hr IV Q8HR [facility]; Protocol Stop: 10/07/24 13:59 Last Admin: 10/02/24 06:36 Dose: 12.5 mls/hr Vancomycin HCl/Dextrose (Vancomycin/D5w 1,250 Mg Ivpb) 250 mls @ 120 mls/hr IV Q12H [facility]; Protocol Stop: 10/08/24 09:59 Last Admin: 10/02/24 10:30 Dose: Not Given Lactated Ringer's (Lactated Ringers) 1,000 mls @ 999 mls/hr IV .Q1H1M ONE Stop: 10/02/24 18:21 Norepinephrine Bitartrate (Levophed In Ns 16mg/250ml) 16 mg in 250 mls @ 3.551 mls/hr IV .Q24H PRN; Protocol PRN Reason: PER PROTOCOL Stop: 11/01/24 17:21 Fentanyl Citrate (Sublimaze Inj 2,500 Mcg/250 Ml Bag) 2,500 mcg in 250 mls @ 2.5 mls/hr IV .Q24H PRN; Protocol PRN Reason: PER PROTOCOL Stop: 10/07/24 17:22 Lactulose (Lactulose Syrup 20 Gm/30 Ml Udc) 20 gm PO QID [facility]; Protocol Stop: 10/30/24 02:44 Last Admin: 10/02/24 06:36 Dose: 20 gm Midodrine (Midodrine 5 Mg Tablet) 10 mg PO TID [facility] Stop: 10/30/24 13:59 Last Admin: 10/02/24 06:36 Dose: 10 mg Ondansetron HCl (Ondansetron Inj 2 Mg/Ml Inj 2 Ml) 4 mg IV Q6H PRN; Protocol PRN Reason: NAUSEA OR VOMITING Stop: 10/30/24 01:49 Last Admin: 10/01/24 18:18 Dose: 4 mg Pantoprazole Sodium (Pantoprazole Inj 40 Mg Vial) 40 mg IVP QDAY [facility] Stop: 10/30/24 08:59 Last Admin: 10/02/24 08:17 Dose: 40 mg Pharmacy Consult (Pharmacy Renal Dose Adjustment 1 Ea) 1 each XX PRN PRN PRN Reason: CONSULT Stop: 10/30/24 02:30 Pharmacy Consult (Vancomycin Pharmacy To Dose 1 Each Each) 1 each IV QDAY PRN PRN Reason: CONSULT Stop: 10/30/24 16:29 Phytonadione (Phytonadione Inj 10 Mg/Ml Amp) 10 mg SC QDAY [facility] Stop: 10/03/24 08:59 Last Admin: 10/02/24 08:18 Dose: 10 mg Rifaximin (Rifaximin 550 Mg Tablet) 550 mg PO BID [facility] Stop: 10/07/24 02:44 Last Admin: 10/02/24 08:18 Dose: 550 mg Spironolactone (Spironolactone 25 Mg Tablet) 12.5 mg PO BID [facility] Stop: 10/30/24 11:29 Last Admin: 10/02/24 08:18 Dose: 12.5 mg Discontinued Medications Acetaminophen (Acetaminophen 325 Mg Tablet) 650 mg PO X1 ONE Stop: 09/30/24 14:58 Last Admin: 09/30/24 15:05 Dose: 650 mg Acetaminophen (Acetaminophen 325 Mg Tablet) 650 mg PO X1 ONE Stop: 09/30/24 16:25 Last Admin: 09/30/24 16:30 Dose: 650 mg Etomidate (Etomidate Inj 2 Mg/Ml Vial 10 Ml) 15 mg IVP X1 ONE Stop: 10/02/24 17:21 Fluconazole (Fluconazole 100 Mg Tablet) 400 mg PO QDAY [facility] Stop: 10/07/24 08:59 Last Admin: 10/01/24 08:50 Dose: 400 mg Furosemide (Furosemide Inj 10 Mg/Ml Vial 2 Ml) 20 mg IVP X1 ONE Stop: 09/30/24 11:19 Last Admin: 09/30/24 11:53 Dose: 20 mg Furosemide (Furosemide Inj 10 Mg/Ml 4ml Vial) 40 mg IVP X1 ONE Stop: 10/02/24 01:18 Last Admin: 10/02/24 01:32 Dose: 40 mg Sodium Chloride (Ns) 1,000 mls @ 1,000 mls/hr IV .Q1H ONE Stop: 09/29/24 19:59 Last Infusion: 09/29/24 21:06 Dose: Infused Piperacillin Sod/Tazobactam (Sod 4.5 gm/ Sodium Chloride) 100 mls @ 200 mls/hr IV X1 ONE Stop: 09/29/24 19:33 Last Infusion: 09/29/24 21:04 Dose: Infused Doxycycline Hyclate 100 mg/ (Sodium Chloride) 100 mls @ 100 mls/hr IV X1 ONE Stop: 09/29/24 20:03 Last Infusion: 09/29/24 21:04 Dose: Infused Magnesium Sulfate (Magnesium Sulfate Ivpb) 2 gm in 50 mls @ 25 mls/hr IV X1 ONE Stop: 09/30/24 01:10 Last Infusion: 09/30/24 01:45 Dose: Infused Potassium Chloride (Kcl Ivpb) 10 meq in 100 mls @ 100 mls/hr IV Q1H [facility] Stop: 09/30/24 01:10 Last Infusion: 09/30/24 04:50 Dose: Infused Diltiazem HCl (Diltiazem In D5w 125 Mg) 125 mg in 125 mls @ 5 mls/hr IV .Q24H [facility] Stop: 10/30/24 01:38 Piperacillin Sod/Tazobactam (Sod 3.375 gm/ Sodium Chloride) 50 mls @ 12.5 mls/hr IV Q8HR [facility] Stop: 10/07/24 13:59 Piperacillin Sod/Tazobactam (Sod 4.5 gm/ Sodium Chloride) 100 mls @ 200 mls/hr IV X1 ONE Stop: 09/30/24 03:14 Last Infusion: 09/30/24 03:45 Dose: Infused Albumin Human (Albuminar-25 Ivpb) 25 gm in 100 mls @ 100 mls/hr IV TID [facility] Stop: 10/01/24 05:59 Last Admin: 09/30/24 21:19 Dose: 100 mls/hr Vancomycin HCl 1,500 mg/ (Sodium Chloride) 500 mls @ 120 mls/hr IV X1 ONE Stop: 09/30/24 20:39 Last Admin: 09/30/24 16:48 Dose: 120 mls/hr Vancomycin HCl (Vancomycin/Water 1250 Mg Ivpb) 250 mls @ 120 mls/hr IV Q12H [facility]; Protocol Stop: 10/08/24 09:59 Magnesium Sulfate (Magnesium Sulfate Ivpb) 4 gm in 50 mls @ 12.5 mls/hr IV X1 ONE Stop: 10/02/24 11:59 Last Admin: 10/02/24 11:10 Dose: 12.5 mls/hr Potassium Chloride (Potassium Chloride 20 Meq Tabcr) 40 meq PO X1 ONE Stop: 10/02/24 08:01 Last Admin: 10/02/24 11:10 Dose: 40 meq Succinylcholine Chloride (Succinylcholine Inj 20 Mg/Ml Vial 10 Ml) 100 mg IV X1 ONE Stop: 10/02/24 17:21 Assessment & Plan Plan Summary: The patient is a 44-year-old male with a past medical history of end- stage liver disease, alcoholic liver cirrhosis with esophageal varices status post banding who presented to the ED on 09/30/2024, brought in by sister due to altered mental status that was noticed about a day prior to presentation. Admitted to the ICU for intubation and airway support. Neuro Acute hepatic encephalopathy-resolved Cardiovascular No active conditions Respiratory #Acute hypoxic respiratory failure #Moderate ARDS #Pneumonia The patient presented with chills and productive cough. ED, meds SIRS criteria with tachycardia and elevated WBCs. Chest x-ray was positive for lobar infiltrate. At the time, pH six 7.41 with pCO2 of 24 and bicarb of 15. Labs significant for leukocytosis and lactic acidosis. Patient was started on IV Zosyn for pneumonia, likely hospital-acquired based on recent discharge from hospital. MRSA nares negative. The patient developed worsening respiratory distress with tachypnea and increased work of breathing. Was placed on BiPAP and continued to be in respiratory distress. He was upgraded to the ICU for intubation. Plan: -Lung protective- Ventilator settings for ARDS with low tidal volume, PEEP of 5. Aim to keep minute ventilation between 8 and 9. -Follow-up on cultures -Continue IV Zosyn and vancomycin GI #End-stage liver disease #Hyperbilirubinemia #Ascites #History of esophageal varices s/p banding On admission his hemoglobin stable at 8.7. Coagulation panel showed prolonged PTT of 21.4, INR of 2.1, PTT 49.7, however there was no signs of active bleeding. Total bilirubin 25.1, magnesium 1.5, total bilirubin of 25.1, AST 68, ALT 46 with a ratio of 2:1 which possibly indicate exogenous hepatic consult such as alcohol or drugs. Ammonia level of 46, Pro-Adin 1.86. Patient has history of recurrent hepatic encephalopathy despite compliance to medications. Patient was sent to ultrasound-guided paracentesis, however there is not enough ascitic fluid for drainage. MELD score-29, 19.6 %/month mortality Plan: -Continue lactulose per OG tube, 20 3 times daily -Continue rifaximin -Continue to monitor H&H for signs of GI bleed -Consider paracentesis if enough fluid for drainage Renal #Acute kidney injury-resolved On admission, the patient had a creatinine of 1.2. Creatinine about a week prior was 0.8. On date of admission, increased to 1.5. Today, creatinine still at 1.2 Plan: -Avoid nephrotoxic medications -Renally dose medications #Non-anion gap metabolic acidosis Anion gap of 11 with bicarb of 15 Likely due to increased bowel movements from lactulose administration Heme #Leukocytosis #Anemia In the setting of end-stage liver disease with esophageal varices status post banding. Patient also found to have sepsis. ID #Sepsis secondary to pneumonia On IV Zosyn and vancomycin, see resp above Health maintenance: Dispo: ICU for acute hypoxic respiratory failure with moderate ARDS Diet: N.p.o. GI: Pantoprazole 40 mg twice daily DVT: SC heparin Lines: Peripheral, right IJ Code: Full Case was discussed with Dr Capps PGY-2 and attending physician, Dr Contreras Olmedo MD PGY-1 Disclaimer: This note was dictated by speech recognition. Minor errors in still operator gin may be present due to voice recognition software.
[2024-10-02] MEDS: ROCURONIUM INJ 10 MG/ML VIAL 10 ML 70 MG IVP (18:15)
--- NOTE | 2024-10-02 18:25 | PD.RESEVENT ---
Documentation for date of: 10/02/24 Event Note Event Note: Rapid response called approximately 5:00 due to patient's worsening status. Patient tachycardic and tachypneic, placed on BiPAP earlier in the day. Patient was unable to tolerate BiPAP, repeat ABG showed failure of respiratory compensation for metabolic acidosis. Conversation was held with patient and family, patient agreed to potential intubation if deemed necessary. Given patient's anxiety and worsening respiratory status, patient was upgraded to ICU for further management, likely intubation. Scott Munguia MD PGY?1
[2024-10-02 18:49] LABS: Lactate (Lactic Acid) 2.3 mMol/L (0.4-2.0)
[2024-10-02 19:00] LABS: Basophils # (Auto) 0.1 Thou/mm3 (0.0-0.2); Basophils % (Auto) 0 % (0-2.5); Eosinophils % (Auto) 0 % (0-10); Hematocrit 27.9 % (41.0-53.0); Immature Granulocytes % (Auto) 2 % (0-0); Immature Granulocytes Auto 0.41 Thou/mm3 (0.00-0.00); Lymphocytes # (Auto) 1.7 Thou/mm3 (1.0-4.8); Lymphocytes % (Auto) 6 % (10-50); Mean Corpuscular HGB Conc 32.3 g/dl (31.0-37.0); Mean Corpuscular Hemoglobin 28.1 pg (25.0-35.0); Mean Corpuscular Volume 87 fL (80-100); Monocytes # (Auto) 1.1 Thou/mm3 (0.0-0.8); Monocytes % (Auto) 4 % (0-12); Neutrophils # (Auto) 23.6 Thou/mm3 (1.8-7.7); Neutrophils % (Auto) 88 % (37-80); Nucleated Red Blood Cell % 0 /100 WBC (0); Platelet Count 111 Thou/mm3 (140-440); RDW Standard Deviation 76.5 fL (35.1-43.9)
--- NOTE | 2024-10-02 19:03 | XR_ITS ---
Examination: AP chest single view TECHNIQUE: AP portable upright chest single view Examination date and time:: October 02, 2024 1832 hours Comparison October 02, 2024 1705 hours INDICATIONS: Interval insertion central line FINDINGS: Severe bilateral pneumonia ARDS Endotracheal tube tip 6.4 cm above the wesley Normal heart size Interval right internal jugular central line tip satisfactory position SVC No pneumothorax IMPRESSION: Interval right internal jugular central line, tip satisfactory position, no pneumothorax
[2024-10-02 19:19] LABS: Alanine Aminotransferase 47 U/L (10-49); Albumin, Serum 2.6 gm/dL (3.5-5.0); Albumin/Globulin Ratio 0.6 (1.2-2.2); Alkaline Phosphatase 78 U/L (46-116); Anion Gap 11 (7-16); Aspartate Amino Transferase 105 U/L (0-34); BUN/Creatinine Ratio 26 Ratio (12-20); Blood Urea Nitrogen 31 mg/dL (9-23); Calcium 7.8 mg/dL (8.3-10.6); Calcium (Corrected) 8.9 mg/dL (8.5-10.1); Chloride 111 mMol/L (98-107); Creatinine (Component) 1.2 mg/dL (0.6-1.3); Estimated Creatinine Clearance 72.7 mL/min (>60); Globulin 4.2 gm/dL (2.3-3.5); Glucose 130 mg/dL (74-106); Magnesium 2.2 mg/dL (1.6-2.6); Osmolality,Calculated 282 (275-295); Phosphorous 3.2 mg/dL (2.4-5.1); Potassium 3.5 mMol/L (3.4-5.1); Sodium 137 mMol/L (136-145); Total Protein 6.8 gm/dL (5.7-8.2); eGFR > 60 See Note
[2024-10-02 19:35] LABS: Bilirubin,Total 24.2 mg/dL (0.3-1.2)
[2024-10-02 19:58] LABS: Base Excess -12 (-3-3); HCO3 17 mEq/L (20-26); Inspired Oxygen, FIO2 100 %; O2 Saturation 101 % (91-98); PCO2 51 mmHg (32.0-48.0); PO2 334 mmHg (83-108)
[2024-10-02 19:59] LABS: pH, Arterial 7.12 (7.35-7.45)
[2024-10-02 20:00] LABS: Allen Test Performed/OK; Puncture Site Right Radial
--- NOTE | 2024-10-02 20:12 | XR_ITS ---
Examination: AP chest single view NEB 1 AP portable semiupright chest single view Exam date and time: 2024 1946 hours Comparison October 02, 2024 1832 hours INDICATIONS: Postop orogastric tube placement Findings: Orogastric tube in the stomach, the tip is below the level of the film Severe bilateral pneumonia and RDS pattern Right internal jugular central line tip satisfactory position, no pneumothorax Tracheal tube tip 5.4 cm above Naila IMPRESSION: Severe bilateral pneumonia ARDS pattern Interval orogastric tube placement in the stomach, the tip is below the level of the film
[2024-10-02] MEDS: CISATRACURIUM INJ 200 MG in SODIUM CHLORIDE 0.9% 500 ML 500 ML 11.817 MG IV (20:49)
[2024-10-02] MEDS: RINGERS LACTATED 1000 ML 1,000 ML 999 ML IV (21:08)
[2024-10-02 21:48] LABS: Reflex Lactate? Y
[2024-10-02 21:49] LABS: Base Excess -11 (-3-3); HCO3 16 mEq/L (20-26); Inspired Oxygen, FIO2 21 %; O2 Saturation 84 % (91-98); PCO2 41 mmHg (32.0-48.0); pH, Arterial 7.21 (7.35-7.45)
[2024-10-02 21:54] LABS: Allen Test Performed/OK; Puncture Site Right Radial
[2024-10-02 21:56] LABS: PO2 54 mmHg (83-108)
[2024-10-02] MEDS: HEPARIN SOD INJ 5000 UNIT/ML VIAL SC (22:06)
[2024-10-02] MEDS: Norepinephrine/NS 16mg/250ml 16 MG/250 ML BAG 3.551 MG IV (22:30)
[2024-10-02 22:43] LABS: Base Excess -12 (-3-3); HCO3 14 mEq/L (20-26); Inspired Oxygen, FIO2 70 %; O2 Saturation 101 % (91-98); PCO2 33 mmHg (32.0-48.0); PO2 233 mmHg (83-108); pH, Arterial 7.25 (7.35-7.45)
[2024-10-02 22:53] LABS: Allen Test Performed/OK; Puncture Site Right Radial
[2024-10-02 23:00] LABS: Lactic Acid, 3 HR 3.6 mMol/L (0.4-2.0)
[2024-10-03] VITALS (108 sets, daily range): BP systolic 84–132; BP diastolic 33–71; PULSE 98–133; RESP 31–35; TEMP 36.3–38; O2SAT 91–99; BMI 26.0
[2024-10-03] MEDS: ALBUMIN HUMAN 25% IVPB 25 GM/100 ML BTL IV (01:25)
[2024-10-03 05:25] LABS: Basophils # (Auto) 0.1 Thou/mm3 (0.0-0.2); Basophils % (Auto) 0 % (0-2.5); Eosinophils # (Auto) 0.1 Thou/mm3 (0.0-0.5); Eosinophils % (Auto) 0 % (0-10); Hematocrit 25.7 % (41.0-53.0); Immature Granulocytes % (Auto) 1 % (0-0); Lymphocytes # (Auto) 1.7 Thou/mm3 (1.0-4.8); Lymphocytes % (Auto) 7 % (10-50); Mean Corpuscular HGB Conc 31.1 g/dl (31.0-37.0); Mean Corpuscular Hemoglobin 27.6 pg (25.0-35.0); Mean Corpuscular Volume 89 fL (80-100); Monocytes # (Auto) 0.8 Thou/mm3 (0.0-0.8); Monocytes % (Auto) 3 % (0-12); Neutrophils # (Auto) 19.8 Thou/mm3 (1.8-7.7); Neutrophils % (Auto) 88 % (37-80); Nucleated Red Blood Cell % 0 /100 WBC (0); Platelet Count 121 Thou/mm3 (140-440); RDW Standard Deviation 78.1 fL (35.1-43.9); White Blood Count 22.6 Thou/mm3 (3.8-10.6)
[2024-10-03] MEDS: MIDODRINE 5 MG TABLET 10 MG PO ×2 (05:25→13:19)
[2024-10-03] MEDS: LACTULOSE SYRUP 20 GM/30 ML UDC PO ×4 (05:27→20:28)
[2024-10-03] MEDS: PIPER/TAZO 3.375 GM PREMIX 3.375 GM/50 ML BAG IV ×3 (05:27→21:12)
[2024-10-03] MEDS: HEPARIN SOD INJ 5000 UNIT/ML VIAL SC ×3 (05:27→21:12)
--- NOTE | 2024-10-03 06:03 | XR_ITS ---
Examination: AP chest single view Technique AP portable semiupright chest single view Exam date: October 03, 2024 at 0511 hours Comparison October 02, 2024 1945 hours INDICATIONS: Hypoxia, respiratory failure, postintubation FINDINGS: Extensive bilateral pneumonia ARDS pattern Endotracheal tube tip 5.1 cm above Naila Right internal jugular central line tip SVC satisfactory position, no pneumothorax. Orogastric tube is in the stomach, the tip is below the level of the film Normal heart size. IMPRESSION: Severe bilateral pneumonia ARDS pattern
[2024-10-03 06:04] LABS: Alanine Aminotransferase 22 U/L (10-49); Albumin, Serum 2.5 gm/dL (3.5-5.0); Albumin/Globulin Ratio 0.7 (1.2-2.2); Alkaline Phosphatase 75 U/L (46-116); Anion Gap 17 (7-16); Aspartate Amino Transferase 80 U/L (0-34); BUN/Creatinine Ratio 15 Ratio (12-20); Blood Urea Nitrogen 35 mg/dL (9-23); Calcium (Corrected) 9.2 mg/dL (8.5-10.1); Chloride 108 mMol/L (98-107); Creatinine (Component) 2.3 mg/dL (0.6-1.3); Estimated Creatinine Clearance 37.9 mL/min (>60); Globulin 3.6 gm/dL (2.3-3.5); Glucose 66 mg/dL (74-106); Magnesium 2.3 mg/dL (1.6-2.6); Osmolality,Calculated 281 (275-295); Phosphorous 4.9 mg/dL (2.4-5.1); Potassium 2.9 mMol/L (3.4-5.1); Sodium 138 mMol/L (136-145); Total Protein 6.1 gm/dL (5.7-8.2); Vancomycin,Random 15.4 mcg/mL; eGFR 35 See Note
[2024-10-03 06:08] LABS: Carbon Dioxide 13.3 mMol/L (20.0-31.0)
[2024-10-03] MEDS: PROPOFOL 1,000 MG IVPB 1,000 MG/100 ML VIAL 9.09 MG IV (06:11)
[2024-10-03] MEDS: fentaNYL 2,500 MCG/250 ML BAG 2,500 MCG/250 ML BAG 20 MCG IV ×2 (06:17→19:27)
[2024-10-03] MEDS: POTASSIUM CHLORIDE 10% 20 MEQ/15 ML UDC 40 MEQ GT (06:40)
[2024-10-03 06:50] LABS: Base Excess -14 (-3-3); HCO3 14 mEq/L (20-26); Inspired Oxygen, FIO2 40 %; O2 Saturation 96 % (91-98); PCO2 37 mmHg (32.0-48.0); PO2 85 mmHg (83-108)
[2024-10-03 06:54] LABS: Allen Test Performed/OK; Puncture Site Right Radial; pH, Arterial 7.17 (7.35-7.45)
[2024-10-03 06:55] LABS: Bilirubin,Total 23.3 mg/dL (0.3-1.2)
[2024-10-03] MEDS: MIDAZOLAM/NS 100 MG IVPB 100 MG/100 ML BAG IV (07:12)
[2024-10-03] MEDS: VASOPRESSIN IN NS IVPB 20 UNIT/100 ML BAG 9 UNIT IV ×2 (07:41→16:56)
[2024-10-03 08:15] LABS: Reflex Lactate? Y
[2024-10-03] MEDS: POTASSIUM CHL 20 mEq IVPB 20 MEQ/100 ML BAG 50 MEQ IV ×2 (08:17→11:20)
[2024-10-03] MEDS: POTASSIUM CHLORIDE 10% 20 MEQ/15 ML UDC GT (08:18)
[2024-10-03] MEDS: PANTOPRAZOLE INJ 40 MG VIAL IVP ×2 (09:07→20:29)
[2024-10-03 09:28] LABS: INR 2.2 (0.9-1.3); Partial Thromboplastin Time 68.1 Seconds (22.0-36.0); Prothrombin Time 22.5 Seconds (9.0-12.2)
--- NOTE | 2024-10-03 10:03 | ECHO_ITS ---
Transthoracic Echo Report Ht (in): 67 Wt (lb): 165 Exam Location: Portable Status: Inpatient Dressage Instructor: BECKA Aquino^^^^ Indications: Procedure Performed: BP: 96 / 46 HR: 107 Technical Quality: Fair MEASUREMENTS (Male / Female) Normal Values 2D ECHO LV Diastolic Diameter PLAX 4.9 cm 4.2 - 5.9 / 3.9 - 5.3 cm LV Systolic Diameter PLAX 3.4 cm IVS Diastolic Thickness 0.7 cm 0.6 - 1.0 / 0.6 - 0.9 cm LVPW Diastolic Thickness 0.7 cm 0.6 - 1.0 / 0.6 - 0.9 cm LV Relative Wall Thickness 0.3 LVOT Diameter 1.7 cm Aortic Root Diameter 2.9 cm LA Systolic Diameter LX 3.5 cm 3.0 - 4.0 / 2.7 - 3.8 cm LV Ejection Fraction MOD 4C 65.9 % LV Cardiac Index MOD 4C 3526.5 cm?/min?m? LV Ejection Fraction 4C AL 67.4 % LV Cardiac Index 4C AL 3785.8 cm?/min?m? LA Volume Index 32.2 cm?/m? 16 - 28 cm?/m? Ascending Aorta Diameter 2.4 cm DOPPLER AV Peak Velocity 208.3 cm/s AV Peak Gradient 17.4 mmHg AV Mean Gradient 9.0 mmHg AV Velocity Time Integral 36.8 cm LVOT Peak Velocity 188.0 cm/s LVOT Peak Gradient 14.1 mmHg LVOT Velocity Time Integral 44.0 cm LVOT Cardiac Index 5644.2 cm?/min?m? AV Area Cont Eq vti 2.7 cm? AV Area Cont Eq pk 2.0 cm? MV Area PHT 3.1 cm? Mitral E Point Velocity 84.9 cm/s Mitral A Point Velocity 83.2 cm/s Mitral E to A Ratio 1.0 LV E' Lateral Velocity 12.2 cm/s Mitral E to LV E' Lateral Ratio 7.0 LV E' Septal Velocity 9.8 cm/s Mitral E to LV E' Septal Ratio 8.7 TR Peak Velocity 321.8 cm/s TR Peak Gradient 41.4 mmHg PV Peak Velocity 138.0 cm/s PV Peak Gradient 7.6 mmHg RVOT Peak Velocity 76.1 cm/s FINDINGS Left Ventricle Normal left ventricular size, wall thickness, systolic function with no obvious regional wall motion abnormalities. Normal left ventricular diastolic filling pattern for age. The ejection fraction is visually estimated at 65-70 %. Right Ventricle The right ventricle is normal in size and systolic function. The estimated right ventricular systolic pressure, 49 mmHg. Left Atrium The left atrium is normal by two-dimensional, color flow and Doppler imaging with no structural abnormalities, no thrombus formation present. Right Atrium The right atrium is normal by two-dimensional imaging, color flow and Doppler imaging with no structural abnormalities, no thrombus formation present. Atrial Septum The interatrial septum appears normal with no evidence of a shunt. Aorta The aorta is normal by two-dimensional, color flow and Doppler interrogation. Mitral Valve Mild mitral annular calcification. Mild mitral regurgitation. Aortic Valve The aortic valve is trileaflet and normal to two-dimensional, color flow and Doppler interrogation. Tricuspid Valve There is moderate tricuspid regurgitation. Pulmonic Valve Trivial pulmonic valve regurgitation. Vessels The pulmonary artery appears normal. The inferior vena cava pulmonary and hepatic veins appear normal. Pericardium The pericardium is normal by two-dimensional imaging. There is no significant pericardial effusion. CONCLUSIONS indication: shock The transthoracic study is normal by two-dimensional, color flow imaging and Doppler interrogation. Normal left ventricular size and function. Approximate ejection fraction is 65-70%. Trace mitral and trace tricuspid regurgitation No wall motion abnormalities seen Rahel Atkins (Electronically Signed) Final Date: 03 October 2024 14:56
[2024-10-03 10:09] LABS: Base Excess -17 (-3-3); HCO3 11 mEq/L (20-26); Inspired Oxygen, FIO2 40 %; O2 Saturation 95 % (91-98); PCO2 36 mmHg (32.0-48.0); PO2 83 mmHg (83-108)
[2024-10-03 10:12] LABS: Allen Test Not Performed; Puncture Site Arterial Line
--- NOTE | 2024-10-03 10:53 | ESPR_ITS ---
<Statement entered by Tierney Capps MD - 10/03/24 13:24> The patient was examined at the bedside, and overnight, blood pressure dropped despite receiving 1 L of fluid. The patient entered shock, with MAP below 65, prompting the initiation of Levophed and vasopressin. Lactic acidosis worsened from 5.3 to 7.0. The patient is sedated and paralyzed, receiving propofol, fentanyl, and Nimbex. Physical exam revealed right upper extremity edema more pronounced than the left. A Doppler ultrasound will be obtained to rule out DVT. Hemodynamic parameters will be assessed using Cheetah monitoring to help differentiate shock etiology Given the ARDS, permissive hypertension is being allowed to maintain lung- protective parameters. The delta gap is 0.8, suggesting combination with NAGMA and AGMA. ABGs will be closely monitored for any changes. Patient blood sugar is not well-maintained, patient will be started on D10 30 cc/h. Patient care was discussed with attending physician Dr. Contreras Capps MD PGY-2 Documentation for date of: 10/03/24 Subjective Subjective Interval history: Patient seen and examined at bedside. Overnight, patient had a temperature of 100.5. Additionally, blood pressure was soft, he received 1 L of fluids and was still hypotensive. Pressors-Levophed and vasopressin which started. Lactic acid this morning at 5.3, repeat at 7.0 At bedside today, patient is sedated and paralyzed on propofol, fentanyl and Nimbex. ABG ths morning- pH-7.17, CO2-36, HCO3- 13.3. Vent settings adjusted, increased TV , RR already at 34, PEEP at 12. On examination, icteric with ascitic abdomen, also has right upper extremity edema which will follow-up with a Doppler ultrasound to rule out DVT. Labs reviewed, downtrending WBCs, stable anemia, hypokalemia, acute kidney injury with creatinine of 2.3, hyperglycemia. T. bili at 23.3, mild transaminitis and hypoalbuminemia. Will add on Versed as patient is currently paralyzed, will repeat all cultures. Will also put on a Cheetah to evaluate hemodynamic parameters for etiology of shock and continue lung protective strategies for ARDS. In the interim, continue antibiotics, repeat ABGs as Vent settings adjusted for respiratory compensation of metabolic acidosis, as well as obtain urine lytes to evaluate urine anion gap and causes of NAGMA. Exam Vital Signs Temp Pulse Resp BP Pulse Ox O2 Del Method O2 Flow Rate 99.6 F 106 H 16 101/46 L 97 Mechanical Ventilation 30 10/03/24 05:30 10/03/24 07:15 10/02/24 17:56 10/03/24 07:15 10/03/24 07:15 10/03/24 05:30 10/02/24 13:05 FiO2 40 10/03/24 06:18 Narrative Exam GENERAL:Sedated and paralyzed, intubated ad on MV NEURO: Unable to assess as patient is sedated and paralyzed HEENT: Dry mucosa. Icteric sclera CARDIO: No chest pain on palpation. Tachycardic, regular rhythm, no murmurs PULM: Crackles bilaterally. GI: Abdomen firm, distended, positive fluid wave. URO/SALES/MARKETING:: No further abnormalities noted. SKIN/MSK/EXT: Icteric skin. Bilateral trace pitting edema in lower extremities. Upper extremities edema R>L Objective Labs 10/03/24 04:20 10/03/24 04:20 Labs: Laboratory Results - last 24 hr 10/02/24 10/02/24 10/02/24 11:59 17:09 18:38 WBC 27.0 H D RBC 3.20 L Hgb 9.0 L Hct 27.9 L MCV 87 MCH 28.1 MCHC 32.3 RDW Std Deviation 76.5 H Plt Count 111 L D Neut % (Auto) 88 H Lymph % (Auto) 6 L [place] % (Auto) 4 Eos % (Auto) 0 Baso % (Auto) 0 Neut # (Auto) 23.6 H Lymph # (Auto) 1.7 [place] # (Auto) 1.1 H Eos # (Auto) 0.0 Baso # (Auto) 0.1 Immature Gran # (Auto) 0.41 H Absolute Nucleated RBC 0.00 Immature Gran % 2 H Nucleated RBC % 0 PT INR APTT Puncture Site Right Radial Right Radial ABG pH 7.39 7.29 L D ABG pCO2 24 L 32 ABG pO2 108 D 86 D ABG HCO3 14 L 15 L ABG O2 Saturation 99 H 97 ABG Base Excess -10 L -10 L FiO2 100 60 Sodium 137 Potassium 3.5 Chloride 111 H Carbon Dioxide 15.0 L Anion Gap 11 BUN 31 H Creatinine 1.2 Estim Creat Clear Calc 72.7 eGFR > 60 BUN/Creatinine Ratio 26 H Glucose 130 H Calculated Osmolality 282 Lactic Acid 2.3 H Calcium 7.8 L Corrected Calcium 8.9 Phosphorus 3.2 Magnesium 2.2 Total Bilirubin 24.2 H* D AST 105 H ALT 47 Alkaline Phosphatase 78 Total Protein 6.8 Albumin 2.6 L Globulin 4.2 H Albumin/Globulin Ratio 0.6 L Random Vancomycin 10/02/24 10/02/24 10/02/24 19:42 21:33 22:35 WBC RBC Hgb Hct MCV MCH MCHC RDW Std Deviation Plt Count Neut % (Auto) Lymph % (Auto) [place] % (Auto) Eos % (Auto) Baso % (Auto) Neut # (Auto) Lymph # (Auto) [place] # (Auto) Eos # (Auto) Baso # (Auto) Immature Gran # (Auto) Absolute Nucleated RBC Immature Gran % Nucleated RBC % PT INR APTT Puncture Site Right Radial Right Radial Right Radial ABG pH 7.12 L* D 7.21 L 7.25 L ABG pCO2 51 H D 41 D 33 ABG pO2 334 H D 54 L* D 233 H D ABG HCO3 17 L 16 L 14 L ABG O2 Saturation 101 H 84 L 101 H ABG Base Excess -12 L -11 L -12 L FiO2 100 21 70 Sodium Potassium Chloride Carbon Dioxide Anion Gap BUN Creatinine Estim Creat Clear Calc eGFR BUN/Creatinine Ratio Glucose Calculated Osmolality Lactic Acid Calcium Corrected Calcium Phosphorus Magnesium Total Bilirubin AST ALT Alkaline Phosphatase Total Protein Albumin Globulin Albumin/Globulin Ratio Random Vancomycin 10/02/24 10/03/24 10/03/24 22:47 04:20 04:30 WBC 22.6 H RBC 2.90 L Hgb 8.0 L Hct 25.7 L MCV 89 MCH 27.6 MCHC 31.1 RDW Std Deviation 78.1 H Plt Count 121 L Neut % (Auto) 88 H Lymph % (Auto) 7 L [place] % (Auto) 3 Eos % (Auto) 0 Baso % (Auto) 0 Neut # (Auto) 19.8 H Lymph # (Auto) 1.7 [place] # (Auto) 0.8 Eos # (Auto) 0.1 Baso # (Auto) 0.1 Immature Gran # (Auto) 0.20 H Absolute Nucleated RBC 0.00 Immature Gran % 1 H Nucleated RBC % 0 PT 22.5 H INR 2.2 H APTT 68.1 H Puncture Site ABG pH ABG pCO2 ABG pO2 ABG HCO3 ABG O2 Saturation ABG Base Excess FiO2 Sodium 138 Potassium 2.9 L D Chloride 108 H Carbon Dioxide 13.3 L* Anion Gap 17 H BUN 35 H Creatinine 2.3 H D Estim Creat Clear Calc 37.9 L eGFR 35 L BUN/Creatinine Ratio 15 Glucose 66 L D Calculated Osmolality 281 Lactic Acid 3.6 H 5.0 H* Calcium 8.0 L Corrected Calcium 9.2 Phosphorus 4.9 Magnesium 2.3 Total Bilirubin 23.3 H* D AST 80 H ALT 22 Alkaline Phosphatase 75 Total Protein 6.1 Albumin 2.5 L Globulin 3.6 H Albumin/Globulin Ratio 0.7 L Random Vancomycin 15.4 10/03/24 10/03/24 10/03/24 06:49 09:49 09:59 WBC RBC Hgb Hct MCV MCH MCHC RDW Std Deviation Plt Count Neut % (Auto) Lymph % (Auto) [place] % (Auto) Eos % (Auto) Baso % (Auto) Neut # (Auto) Lymph # (Auto) [place] # (Auto) Eos # (Auto) Baso # (Auto) Immature Gran # (Auto) Absolute Nucleated RBC Immature Gran % Nucleated RBC % PT INR APTT Puncture Site Right Radial Arterial Line ABG pH 7.17 L* 7.10 L* ABG pCO2 37 36 ABG pO2 85 D 83 ABG HCO3 14 L 11 L ABG O2 Saturation 96 95 ABG Base Excess -14 L -17 L FiO2 40 40 Sodium Potassium Chloride Carbon Dioxide Anion Gap BUN Creatinine Estim Creat Clear Calc eGFR BUN/Creatinine Ratio Glucose Calculated Osmolality Lactic Acid 7.0 H* Calcium Corrected Calcium Phosphorus Magnesium Total Bilirubin AST ALT Alkaline Phosphatase Total Protein Albumin Globulin Albumin/Globulin Ratio Random Vancomycin ABG Interpretation ABG results: 09/29/24 10/02/24 10/02/24 19:27 11:59 17:09 ABG pH 7.41 7.39 7.29 L D ABG pCO2 24 L 24 L 32 ABG pO2 58 L* 108 D 86 D ABG HCO3 15 L 14 L 15 L ABG O2 Saturation 92 99 H 97 ABG Base Excess -8 L -10 L -10 L 10/02/24 10/02/24 10/02/24 19:42 21:33 22:35 ABG pH 7.12 L* D 7.21 L 7.25 L ABG pCO2 51 H D 41 D 33 ABG pO2 334 H D 54 L* D 233 H D ABG HCO3 17 L 16 L 14 L ABG O2 Saturation 101 H 84 L 101 H ABG Base Excess -12 L -11 L -12 L 10/03/24 10/03/24 06:49 09:59 ABG pH 7.17 L* 7.10 L* ABG pCO2 37 36 ABG pO2 85 D 83 ABG HCO3 14 L 11 L ABG O2 Saturation 96 95 ABG Base Excess -14 L -17 L Quality Measures Quality Measures sepsis Current suspected stage: sepsis Possible source: GI tract/intra-abdominal Blood cultures ordered: yes Antibiotic ordered: Yes Assessment & Plan Assessment Current Active Medications: Generic Name Dose Route Start Last Admin Trade Name Freq PRN Reason Stop Dose Admin Acetaminophen 650 mg 09/30/24 01:41 10/01/24 21:46 Acetaminophen 325 Mg Tablet PO 10/30/24 01:40 650 mg Q8H PRN Administration Fever >101.5 Citric Acid/Sodium Citrate 30 ml 09/30/24 11:30 10/02/24 21:56 Citric Acid/Sodium Citr 15 Ml Udc (Bicitra) PO 10/30/24 11:29 30 ml BID CATHY Administration Furosemide 20 mg 10/01/24 09:00 10/02/24 08:19 Furosemide Inj 10 Mg/Ml Vial 2 Ml IVP 10/31/24 08:59 20 mg QDAY CATHY Administration Heparin Sodium (Porcine) 5,000 unit 10/02/24 22:00 10/03/24 05:27 Heparin Sod Inj 5000 Unit/Ml Vial SC 10/16/24 21:59 5,000 unit Q8HR CATHY Administration Piperacillin/Tazobactam/Dextrose 3.375 gm in 50 mls @ 12.5 mls/hr 09/30/24 14:00 10/03/24 05:27 Zosyn IV 10/07/24 13:59 12.5 mls/hr Q8HR CATHY Administration Protocol Norepinephrine Bitartrate 16 mg in 250 mls @ 3.551 mls/hr 10/02/24 17:22 10/03/24 09:30 Levophed In Ns 16mg/250ml IV 11/01/24 17:21 0.4 mcg/kg/min .Q24H PRN 28.406 mls/hr PER PROTOCOL Titration Protocol 0.05 MCG/KG/MIN Fentanyl Citrate 2,500 mcg in 250 mls @ 2.5 mls/hr 10/02/24 18:31 10/03/24 09:00 Sublimaze Inj 2,500 Mcg/250 Ml Bag IV 10/07/24 17:22 200 mcg/hr .Q24H PRN 20 mls/hr PER PROTOCOL Titration Protocol 25 MCG/HR Cisatracurium Besylate 200 mg/ 520 mls @ 11.817 mls/hr 10/02/24 20:14 10/03/24 09:00 Sodium Chloride IV 11/01/24 20:13 1.5 mcg/kg/min .Q24H PRN 17.726 mls/hr Per Protocol Titration Protocol 1 MCG/KG/MIN Vancomycin/Sodium Chloride 750 mg in 150 mls @ 120 mls/hr 10/03/24 10:00 Vancomycin/Ns 750 Mg Ivpb IV 10/10/24 09:59 QDAY@1000 CATHY Protocol Potassium Chloride 20 meq in 100 mls @ 50 mls/hr 10/03/24 07:12 10/03/24 08:17 Kcl Ivpb IV 10/03/24 11:11 50 mls/hr Q2H CATHY Administration Midazolam HCl 100 mg in 100 mls @ 1 mls/hr 10/03/24 07:41 10/03/24 09:00 Versed Pf Inj In Ns Premix IV 10/08/24 07:40 2 mg/hr .Q24H PRN 2 mls/hr PER PROTOCOL Titration Protocol 1 MG/HR Propofol 1,000 mg in 100 mls @ 2.256 mls/hr 10/03/24 08:09 Diprivan Ivpb IV 11/01/24 18:04 .Q24H PRN PER PROTOCOL Protocol 5 MCG/KG/MIN Vasopressin/Sodium Chloride 20 unit in 100 mls @ 9 mls/hr 10/03/24 07:42 10/03/24 07:41 Vasostrict/Ns Ivpb IV 11/02/24 07:41 0.03 unit/min .Q11H7M PRN 9 mls/hr PER PROTOCOL Administration Protocol 0.03 UNIT/MIN Lactulose 20 gm 09/30/24 02:45 10/03/24 05:27 Lactulose Syrup 20 Gm/30 Ml Udc PO 10/30/24 02:44 20 gm QID CATHY Administration Protocol Midodrine 10 mg 09/30/24 14:00 10/03/24 05:25 Midodrine 5 Mg Tablet PO 10/30/24 13:59 10 mg TID CATHY Administration Ondansetron HCl 4 mg 09/30/24 01:50 10/01/24 18:18 Ondansetron Inj 2 Mg/Ml Inj 2 Ml IV 10/30/24 01:49 4 mg Q6H PRN Administration NAUSEA OR VOMITING Protocol Pantoprazole Sodium 40 mg 10/02/24 20:00 10/03/24 09:07 Pantoprazole Inj 40 Mg Vial IVP 11/01/24 19:59 40 mg BID CATHY Administration Pharmacy Consult 1 each 09/30/24 02:31 Pharmacy Renal Dose Adjustment 1 Ea XX 10/30/24 02:30 PRN PRN CONSULT Pharmacy Consult 1 each 09/30/24 16:30 Vancomycin Pharmacy To Dose 1 Each Each IV 10/30/24 16:29 QDAY PRN CONSULT Rifaximin 550 mg 09/30/24 02:45 10/02/24 21:56 Rifaximin 550 Mg Tablet PO 10/07/24 02:44 550 mg BID CATHY Administration Spironolactone 12.5 mg 09/30/24 11:30 10/02/24 21:58 Spironolactone 25 Mg Tablet PO 10/30/24 11:29 Not Given BID CATHY Plan Summary: The patient is a 44-year-old male with a past medical history of end- stage liver disease, alcoholic liver cirrhosis with esophageal varices status post banding who presented to the ED on 09/30/2024, brought in by sister due to altered mental status that was noticed about a day prior to presentation. Admitted to the ICU for intubation and airway support. Neuro Acute hepatic encephalopathy-resolved Sedated, paralyzed and intubated- On fentanyl, propofol and Nimbex Cardiovascular #Shock, unknown etiology #Likely distributive from end stage liver disease vs sepsis Patient does have pneumonia, community vs acquired based on recent discharge. Started on broad spectrum antibiotics. Overnight, had a temperature of 100.5. Additionally, blood pressure was soft, he received 1 L of fluids and was still hypotensive. Pressors-Levophed and vasopressin which started. Note that per chart review, lactic acid has been chronically elevated in past admissions. More significant elevation this time indicate an additional etiology Lactic acid this morning at 5.3, repeat at 7.0 Currently on Levophed and Vasopresin Plan: -Continue Broad spectrum antibiotics -Bedside US to evaluate contractility and r/o cardiogenic etiology as well as obstructive -[place]et[place] to evaluate other hemodynamic parameters and other shock etiologies -Continue pressor support, titrating for MAP >60 Respiratory #Acute hypoxic respiratory failure #Moderate ARDS #Pneumonia The patient presented with chills and productive cough. ED, meds SIRS criteria with tachycardia and elevated WBCs. Chest x-ray was positive for lobar infiltrate. At the time, pH six 7.41 with pCO2 of 24 and bicarb of 15. Labs significant for leukocytosis and lactic acidosis. Patient was started on IV Zosyn for pneumonia, likely hospital-acquired based on recent discharge from hospital. MRSA nares negative. The patient developed worsening respiratory distress with tachypnea and increased work of breathing. Was placed on BiPAP and continued to be in respiratory distress. He was upgraded to the ICU for AHRF and consequent intubation. 10/04/2023- At bedside today, patient is sedated and paralyzed on propofol, fentanyl and Nimbex. ABG ths morning- pH-7.17, CO2-36, HCO3- 13.3. Vent settings adjusted, increased TV , RR already at 34, PEEP at Plan: -Lung protective strategies- Ventilator settings for ARDS with low tidal volume (6cc/kg), plateau pressure <30 permissive hypercapnia. -Follow-up on cultures -Continue IV Zosyn and vancomycin GI #End-stage liver disease #Hyperbilirubinemia #Ascites #History of esophageal varices s/p banding On admission his hemoglobin stable at 8.7. Coagulation panel showed prolonged PTT of 21.4, INR of 2.1, PTT 49.7, however there was no signs of active bleeding. Total bilirubin 25.1, magnesium 1.5, total bilirubin of 25.1, AST 68, ALT 46 with a ratio of 2:1 which possibly indicate exogenous hepatic consult such as alcohol or drugs. Ammonia level of 46, Pro-Adin 1.86. Patient has history of recurrent hepatic encephalopathy despite compliance to medications. Patient was sent to ultrasound-guided paracentesis, however there is not enough ascitic fluid for drainage. MELD score-29, 19.6 %/month mortality, child Hale class C Plan: -Continue lactulose per OG tube, 20 3 times daily -Continue rifaximin -Continue to monitor H&H for signs of GI bleed -Consider paracentesis if enough fluid for drainage Renal #Acute kidney injury-resolved On admission, the patient had a creatinine of 1.2. Creatinine about a week prior was 0.8. On date of admission, increased to 1.5. Today, creatinine still at 1.2 10/04/2023-creatinine this morning elevated at 2.3, likely as a result of shock. Will give IV fluids if patient is fluid responsive and repeat renal panel. Urine output 160 cc overnight. Plan: -Avoid nephrotoxic medications -Renally dose medications # Metabolic acidosis #AGMA + NAGMA Anion gap of 11 with bicarb of 15 Likely due to increased bowel movements from lactulose administration 10/03/2024: Initial pH this morning significant for acidosis with bicarb of 13.3. Lactic acid of 5.3. Normal BHB Delta delta gap-0.85. Will obtain urine lytes evaluate urine anion gap and for etiology of NAGMA. Next Plan: -Random urine electrolytes Heme #Leukocytosis #Anemia In the setting of end-stage liver disease with esophageal varices status post banding. Patient also found to have sepsis. 10/03/2024-leukocytosis with downtrending WBC, Anemia with hemoglobin of 8, stable for patient. Endo #Hypoglycemia Blood glucose this morning is 66, repeat at 64. Patient started on D10 drip at 30 cc/h. Continue blood glucose checks every 4 hours. ID #Sepsis secondary to pneumonia On IV Zosyn and vancomycin, see resp above Health maintenance: Dispo: ICU for acute hypoxic respiratory failure with moderate ARDS Diet: N.p.o. GI: Pantoprazole 40 mg twice daily DVT: SC heparin Lines: Peripheral, right IJ Code: Full Case was discussed with Dr Capps PGY 2 and attending physician, Dr Contreras Olmedo MD PGY-1 Disclaimer: This note was dictated by speech recognition. Minor errors in aerospace physiological technician may be present due to voice recognition software. Attending Provider Attestation/Addendum pt seen and examined, d/w resident team. In brief this is a 44yo M admitted to the ICU for acute hypoxic resp failure 2/2 ARDS. pt has a h/o ETOH cirrhosis and ESLD. He initially presented to the hospital with CAP. Yesterday he was on 100% FiO2 and required intubation and NMB with sedation. Today he is intubated, sedated and on paralytic. He is jaundiced and icteric with coarse breath sounds and crackles throughout. HRRR and tachy, abd soft and distended with fluid shift noted. Edema of b/l UE with R>L, pulses palp, no mottling, no clubbing. Acute hypoxic resp failure 2/2 ARDS- on LTVV@6cc/kg/IBW , PPlat <30, permissive hypercapnea, NMB with 2/4 twitches -> deep sedation AGMA- 2/2 LA and shock-> felt to be distributive in nature, echo with adequate contractility, no evidence of obstructive etiology, has received volume and there is no evidence of hemorrhage. on broad spectrum abx and cx have been sent. currently on 2 vasopressors and started on hydrocortisone for refractory septic shock SMILEY- with minimal UOP and virtually anuric today, pt is fluid responsive with an elevated SVV therefore will give additional volume, if pt cont to be anuric then may require HD and nephrology eval. Cirrhosis with ESLD- > pt has a h/o ETOH abuse , on lactulose and rifaximine case d/w ICU team labs, imaging, records reviewed ~55ccmin required for eval, exam, review, intervention, discussion and formulation of POC for this critically ill pt with ARDS and acute resp failure on MV at high risk for further and ongoing decompensation
[2024-10-03] MEDS: Norepinephrine/NS 16mg/250ml 16 MG/250 ML BAG 31.247 MG IV (11:05)
[2024-10-03] MEDS: DEXTROSE 10%-WATER 500 ML 30 ML IV (11:07)
--- NOTE | 2024-10-03 11:17 | XR_ITS ---
Examination: Duplex scan of the upper extremity, unilateral right Date and time of exam: October 03, 2024 1146 hours INDICATIONS: Onset right arm swelling today Technique: Duplex scan of the extremity veins using B-mode/grayscale imaging and Doppler spectral analysis and color flow Attention is directed to internal echogenicity, compression and augmentation involving these veins, color flow assessment, spectral analysis Findings: Major deep venous structures in the extremity demonstrate normal course and caliber. There is no evidence of deep vein thrombosis. Normal color flow and spectral analysis Impression: Negative for DVT.. Positive for thrombus in the superficial cephalic vein
[2024-10-03 11:29] LABS: Beta Hydroxybutyrate 0.1 mmol/L (<0.6)
[2024-10-03 11:42] LABS: Base Excess -18 (-3-3); HCO3 10 mEq/L (20-26); Inspired Oxygen, FIO2 40 %; O2 Saturation 97 % (91-98); PCO2 33 mmHg (32.0-48.0); PO2 92 mmHg (83-108)
[2024-10-03 11:44] LABS: Allen Test Not Performed; Puncture Site Arterial Line
--- NOTE | 2024-10-03 11:59 | PC.DIETICIAN ---
If EN is initiated, consider: Trophic feeds of Vital 1.2 at 20 ml/hr via OG tube. Water flushes of 30 ml every 4 hrs (or per MD). Once more stable, advance 10 ml every 8 hrs to goal rate of 55ml/hr x 24hrs. *EN goal rate to be adjusted as needed while pt is on propofol.
[2024-10-03] MEDS: rifaximin 550 MG TABLET PO ×2 (12:22→20:28)
[2024-10-03] MEDS: SODIUM CHLORIDE 0.9% 250 ML 250 ML 999 ML IV (12:51)
[2024-10-03] MEDS: VANCOMYCIN/NS 750 MG IVPB 750 MG/150 ML BAG 120 MG IV (12:57)
[2024-10-03] MEDS: PROPOFOL 1,000 MG IVPB 1,000 MG/100 ML VIAL 13.536 MG IV ×2 (13:19→21:03)
--- NOTE | 2024-10-03 13:43 | PD.RESPROC ---
Procedures Procedure Date / Time 10/03/24 7757 Intubation Indication(s): acute Resp Failure Informed consent obtained: from patient Time out done, and the following verified: correct patient, procedure, patient position and implants and/or equipment Sedative: etomidate Paralytic: succinylcholine Laryngoscope: other (glidescope) ET tube size: 8 Tube secured location: lips Tube placement confirmation: visualized tube passing through cords, equal breath sounds bilaterally, no breath sounds over epigastrium and confirmation by capnometry Patient tolerated procedure: well Intubation complications: none
--- NOTE | 2024-10-03 13:45 | ESOP_ITS ---
Procedures Procedure Date / Time 10/03/24 1345 Central Line Placement Right IJ: Indication(s): poor, or inadequate peripheral venous access Informed consent obtained: procedure done urgently Time out done, and the following verified: correct patient, side and site, procedure, patient position and implants and/or equipment Patient placed on monitor/pulse ox: Yes Hand Hygiene: scrub and alcohol-based hand rub Max Sterile Barrier Techniques used: cap, mask, sterile gown, sterile gloves and sterile full body drape Central line prep: Povidone-Iodine 1%, Chlorhexidine scrub and sterile drapes applied Local anesthesia used: lidocaine 1% Ultrasound used for placement: Yes Sterile Technique if Ultrasound used, including sterile gel: yes Central line lumen inserted: triple Post procedure: sutured in place, good blood return, all ports aspirated, flushed, capped and sterile dressing applied Post procedure x-ray: tip of catheter in good position and no pneumothorax seen Patient tolerated procedure: well EBL(ml): 20 Complications: none Procedure comment: Initial IJ evaluation done. Placement sites clean with chlorhexidine prep. Sterile drape applied to the right jugular region. Ultrasound with probe cover used to reevaluate site of insertion. Lidocaine infiltration and then, needle inserted into the right internal jugular vein. Needle advanced and aspiration with venous blood and feeling upper chamber, syringe detached from needle and guidewire introduced into the syringe, continuously advanced. Needle removed over guidewire, ultrasound used to confirm placement and vein. Scalpel was used over a wire to slightly large insertion site, dilator introduced and subsequently, triple vein catheter, guidewire removed and catheter advanced into the vessel. All ports of triple-lumen catheter aspirated and flushed and then capped. Catheter sutured in place with Biopatch and Tegaderm over. Postprocedure chest x-ray shows tip of catheter in satisfactory position, no pneumothorax. Proceure done under supervision of attending physician, Dr Contreras Olmedo MD PGY-1 Disclaimer: This note was dictated by speech recognition. Minor errors in evidence specialist may be present due to voice recognition software. Attending note: I directly supervised this procedure
[2024-10-03] MEDS: RINGERS LACTATED 1000 ML 1,000 ML 999 ML IV ×2 (15:45→19:17)
--- NOTE | 2024-10-03 16:20 | PC.SS ---
Update: Patient is intubated/sedated. Patient receiving pressor support. Patient on IV antibiotics. OG tube in place. Feedings on hold.
--- NOTE | 2024-10-03 16:54 | ESOP_ITS ---
Procedures Procedure Date / Time 10/03/24 5344 Arterial Line Indication(s): frequent arterial line sampling and inability to monitor non- invasive BP Informed consent obtained: implied and procedure done urgently Time out done, and the following verified: correct patient, side and site, procedure and patient position Technique used: guide wire technique Post-Procedure: dry sterile dressing placed Patient tolerated procedure: well and no complications EBL(ml): 10 Complications: none Site: left and radial
[2024-10-03] MEDS: HYDROCORTISONE SOD SUCC INJ 100 MG VIAL 50 MG IV ×2 (17:13→23:30)
[2024-10-03] MEDS: DEXTROSE 50%-WATER INJ 50 ML SYRINGE IV (17:59)
[2024-10-03] MEDS: DEXTROSE 10%-WATER 500 ML 50 ML IV (18:00)
[2024-10-03] MEDS: Norepinephrine/NS 16mg/250ml 16 MG/250 ML BAG 38.348 MG IV (18:36)
[2024-10-03 19:03] LABS: Lactate (Lactic Acid) 9.8 mMol/L (0.4-2.0)
[2024-10-03 19:08] LABS: Reflex Lactate? Y
[2024-10-03 21:58] LABS: Reflex Lactate? Y
[2024-10-03 23:08] LABS: Lactic Acid, 3 HR 10.3 mMol/L (0.4-2.0)
[2024-10-04] VITALS (108 sets, daily range): BP systolic 64–132; BP diastolic 23–75; PULSE 90–119; RESP 0–36; TEMP 36.3–36.8; O2SAT 87–108
[2024-10-04] MEDS: Norepinephrine/NS 16mg/250ml 16 MG/250 ML BAG 39.769 MG IV (01:20)
[2024-10-04] MEDS: ALBUMIN HUMAN 25% IVPB 25 GM/100 ML BTL IV ×2 (04:10→11:50)
[2024-10-04] MEDS: HEPARIN SOD INJ 5000 UNIT/ML VIAL SC (05:20)
[2024-10-04] MEDS: LACTULOSE SYRUP 20 GM/30 ML UDC PO ×2 (05:21→11:51)
[2024-10-04] MEDS: HYDROCORTISONE SOD SUCC INJ 100 MG VIAL 50 MG IV ×3 (05:21→17:48)
[2024-10-04] MEDS: PIPER/TAZO 3.375 GM PREMIX 3.375 GM/50 ML BAG IV ×3 (05:21→22:07)
[2024-10-04] MEDS: DEXTROSE 5%-LACTATED RINGERS 1,000 ML 100 ML IV (06:00)
[2024-10-04 06:09] LABS: Lactate (Lactic Acid) 11.8 mMol/L (0.4-2.0)
--- NOTE | 2024-10-04 06:12 | PC.NURSE ---
VBG drawn with CVP, 14 was baseline and moved to 15 during draw. post draw, went back to 14
[2024-10-04 06:17] LABS: Basophils % (Auto) 0 % (0-2.5); Eosinophils % (Auto) 0 % (0-10); Hematocrit 28.7 % (41.0-53.0); Immature Granulocytes % (Auto) 2 % (0-0); Immature Granulocytes Auto 0.52 Thou/mm3 (0.00-0.00); Lymphocytes # (Auto) 1.9 Thou/mm3 (1.0-4.8); Lymphocytes % (Auto) 7 % (10-50); Mean Corpuscular HGB Conc 29.3 g/dl (31.0-37.0); Mean Corpuscular Hemoglobin 27.5 pg (25.0-35.0); Mean Corpuscular Volume 94 fL (80-100); Monocytes # (Auto) 1.4 Thou/mm3 (0.0-0.8); Monocytes % (Auto) 5 % (0-12); Neutrophils # (Auto) 22.8 Thou/mm3 (1.8-7.7); Neutrophils % (Auto) 85 % (37-80); Nucleated Red Blood Cell # 0.13 Thou/mm3 (0.00-0.00); Nucleated Red Blood Cell % 1 /100 WBC (0); Platelet Count 209 Thou/mm3 (140-440); Red Blood Count 3.06 Miln/mm3 (4.50-5.90); White Blood Count 26.7 Thou/mm3 (3.8-10.6)
[2024-10-04 06:19] LABS: Hemoglobin 8.4 g/dL (13.5-16.0)
[2024-10-04 06:32] LABS: Base Excess, Venous -26 (-3-3); O2 Saturation, Venous 96 % (96-97); PCO2, Venous 29 mmHg (36-56); PO2, Venous 95 mmHg (15-58); pH, Venous 6.88 (7.33-7.66)
[2024-10-04 06:33] LABS: Legionella Ag, EIA, Urine* NOT DETECTED
[2024-10-04] MEDS: PROPOFOL 1,000 MG IVPB 1,000 MG/100 ML VIAL 13.536 MG IV ×2 (06:33→06:34)
[2024-10-04 06:50] LABS: Base Excess -27 (-3-3); HCO3 5 mEq/L (20-26); O2 Saturation 96 % (91-98); PCO2 29 mmHg (32.0-48.0); PO2 100 mmHg (83-108)
[2024-10-04 06:52] LABS: Allen Test Not Performed; Inspired Oxygen, FIO2 40 %; Puncture Site Arterial Line; pH, Arterial 6.87 (7.35-7.45)
[2024-10-04 07:08] LABS: Alanine Aminotransferase 232 U/L (10-49); Albumin, Serum 2.7 gm/dL (3.5-5.0); Albumin/Globulin Ratio 0.8 (1.2-2.2); Alkaline Phosphatase 92 U/L (46-116); Anion Gap 17 (7-16); BUN/Creatinine Ratio 10 Ratio (12-20); Blood Urea Nitrogen 43 mg/dL (9-23); Calcium 8.2 mg/dL (8.3-10.6); Calcium (Corrected) 9.2 mg/dL (8.5-10.1); Chloride 107 mMol/L (98-107); Creatinine (Component) 4.1 mg/dL (0.6-1.3); Globulin 3.6 gm/dL (2.3-3.5); Glucose 93 mg/dL (74-106); Osmolality,Calculated 279 (275-295); Potassium 5.6 mMol/L (3.4-5.1); Sodium 134 mMol/L (136-145); Total Protein 6.3 gm/dL (5.7-8.2); eGFR 17 See Note
[2024-10-04 07:17] LABS: Aspartate Amino Transferase 1391 U/L (0-34)
[2024-10-04 07:23] LABS: Bilirubin,Total 22.7 mg/dL (0.3-1.2); Carbon Dioxide < 10.0 mMol/L (20.0-31.0)
[2024-10-04] MEDS: Norepinephrine/NS 16mg/250ml 16 MG/250 ML BAG 49.711 MG IV (07:32)
[2024-10-04] MEDS: Sodium Bicarb Inj 8.4% SYR 50 ML SYRINGE IV ×4 (07:36→11:48)
[2024-10-04] MEDS: METHYLENE BLUE IV (08:34)
[2024-10-04] MEDS: WATER IV (08:34)
[2024-10-04] MEDS: DEXTROSE 5% IV (08:34)
[2024-10-04] MEDS: fentaNYL 2,500 MCG/250 ML BAG 2,500 MCG/250 ML BAG 20 MCG IV (08:35)
[2024-10-04 08:57] LABS: Vancomycin,Random 22.6 mcg/mL
--- NOTE | 2024-10-04 08:59 | XR_ITS ---
Examination: AP chest single view TECHNIQUE: AP portable semiupright chest single view Exam date and time: October 04, 2024 0821 hours Comparison October 03, 2024 INDICATIONS: Hypoxic respiratory failure difficulty breathing this week, severe pneumonia ARDS pattern on earlier chest imaging this week FINDINGS: Severe bilateral pneumonia/ARDS Endotracheal tube tip 3.3 cm above [place]. Right internal jugular central line tip right atrium No pneumothorax The orogastric tube is in the stomach IMPRESSION: Again noted extensive bilateral pneumonia ARDS pattern
[2024-10-04 09:04] LABS: Reflex Lactate? Y
[2024-10-04 09:33] LABS: Lactic Acid, 3 HR 13.6 mMol/L (0.4-2.0)
[2024-10-04 09:42] LABS: Basophils # (Auto) 0.1 Thou/mm3 (0.0-0.2); Basophils % (Auto) 0 % (0-2.5); Eosinophils % (Auto) 0 % (0-10); Hematocrit 28.2 % (41.0-53.0); Hemoglobin 8.4 g/dL (13.5-16.0); Immature Granulocytes % (Auto) 2 % (0-0); Immature Granulocytes Auto 0.41 Thou/mm3 (0.00-0.00); Lymphocytes # (Auto) 1.9 Thou/mm3 (1.0-4.8); Lymphocytes % (Auto) 7 % (10-50); Mean Corpuscular HGB Conc 29.8 g/dl (31.0-37.0); Mean Corpuscular Volume 94 fL (80-100); Monocytes # (Auto) 1.6 Thou/mm3 (0.0-0.8); Monocytes % (Auto) 6 % (0-12); Neutrophils # (Auto) 21.9 Thou/mm3 (1.8-7.7); Neutrophils % (Auto) 85 % (37-80); Nucleated Red Blood Cell # 0.19 Thou/mm3 (0.00-0.00); Nucleated Red Blood Cell % 1 /100 WBC (0); Platelet Count 210 Thou/mm3 (140-440); RDW Standard Deviation 83.8 fL (35.1-43.9); White Blood Count 25.9 Thou/mm3 (3.8-10.6)
[2024-10-04 10:00] LABS: D-Dimer 3710 ng/mL (<600)
[2024-10-04 10:02] LABS: Albumin, Serum 2.5 gm/dL (3.5-5.0); Anion Gap 19 (7-16); BUN/Creatinine Ratio 10 Ratio (12-20); Blood Urea Nitrogen 43 mg/dL (9-23); Calcium (Corrected) 9.2 mg/dL (8.5-10.1); Chloride 107 mMol/L (98-107); Creatinine (Component) 4.2 mg/dL (0.6-1.3); Estimated Creatinine Clearance 22.5 mL/min (>60); Glucose 95 mg/dL (74-106); Osmolality,Calculated 282 (275-295); Potassium 5.4 mMol/L (3.4-5.1); Sodium 136 mMol/L (136-145); eGFR 17 See Note
[2024-10-04 10:05] LABS: Carbon Dioxide < 10.0 mMol/L (20.0-31.0); Fibrinogen 153 mg/dL (175-375)
[2024-10-04 10:06] LABS: Phosphorous 10.3 mg/dL (2.4-5.1); Prothrombin Time 30.2 Seconds (9.0-12.2)
[2024-10-04 10:08] LABS: Partial Thromboplastin Time 110.8 Seconds (22.0-36.0)
[2024-10-04] MEDS: HEPARIN SOD INJ 1000 UNIT/ML VIAL 10 ML 9500 UNIT IV (10:58)
--- NOTE | 2024-10-04 11:01 | PD.INTPROG ---
Documentation for date of: 10/04/24 Subjective Subjective Interval history: This is a 44yo M admitted on 09/30 for ETOH cirrhosis , AMS, sepsis and CAP. Pts resp status declined during his stay. He developed ARDS with increased WOB and required bipap. ICU was consulted on 10/02 for acute resp failure. He was brought to the ICU and intubated on 10/02 in the evening. He was hypoxic with s/f ratio <100. Decision was made to start on NMB and vent adustments made and PEEP increased. LA was elevated and he was fluid responsive and given fluid bolus. OVernight his vasopressor needs increased. He is anuric. SvO2 was noted to be in the 90s. Critical Care Note Critical care time (min.): 48 Exam Vital Signs Temp Pulse Resp BP Pulse Ox O2 Del Method O2 Flow Rate 97.3 F 101 H 32 H 119/49 L 94 L Mechanical Ventilation 30 10/04/24 10:47 10/04/24 10:47 10/04/24 10:47 10/04/24 10:47 10/04/24 10:47 10/03/24 05:30 10/02/24 13:05 FiO2 40 10/04/24 10:36 Narrative Exam Gen- intubated, sedated, ill appearing, jaundice HEENT- NC/AT, mucosa dry, sclera icteric, pupils reactive , ETT/OGT in place Chest- coarse, few crackles, HRRR, tachycardic Abd- distended, fluid shift +, no rebound , no guarding, no palp organomegaly Ext- edema, pulses palp, no clubbing, some mottling, no withdrawal Vent AC VC Drips octreotide levo vaso prop fent Physical Exam Completion Physical Exam Complete?: Yes Objective - Lumber Scaler Labs 10/04/24 09:10 10/04/24 09:10 Labs: Laboratory Results - last 24 hr 09/30/24 10/03/24 10/03/24 17:30 11:07 11:35 WBC RBC Hgb Hct MCV MCH MCHC RDW Std Deviation Plt Count Neut % (Auto) Lymph % (Auto) Benson % (Auto) Eos % (Auto) Baso % (Auto) Neut # (Auto) Lymph # (Auto) Benson # (Auto) Eos # (Auto) Baso # (Auto) Immature Gran # (Auto) Absolute Nucleated RBC Immature Gran % Nucleated RBC % PT INR APTT Fibrinogen D-Dimer Puncture Site Arterial Line ABG pH 7.10 L* ABG pCO2 33 ABG pO2 92 ABG HCO3 10 L ABG O2 Saturation 97 ABG Base Excess -18 L VBG pH VBG pCO2 VBG pO2 VBG O2 Sat (Francisca) VBG Base Excess FiO2 40 Sodium Potassium Chloride Carbon Dioxide Anion Gap BUN Creatinine Estim Creat Clear Calc eGFR BUN/Creatinine Ratio Glucose Calculated Osmolality Lactic Acid Calcium Corrected Calcium Phosphorus Total Bilirubin AST ALT Alkaline Phosphatase Total Protein Albumin Globulin Albumin/Globulin Ratio Beta-Hydroxybutyrate/Acetoacetate 0.1 Random Vancomycin Urine Legionella Ag NOT DETECTED 10/03/24 10/03/24 10/03/24 16:00 18:51 22:41 WBC RBC Hgb Hct MCV MCH MCHC RDW Std Deviation Plt Count Neut % (Auto) Lymph % (Auto) Benson % (Auto) Eos % (Auto) Baso % (Auto) Neut # (Auto) Lymph # (Auto) Benson # (Auto) Eos # (Auto) Baso # (Auto) Immature Gran # (Auto) Absolute Nucleated RBC Immature Gran % Nucleated RBC % PT INR APTT Fibrinogen D-Dimer Puncture Site ABG pH ABG pCO2 ABG pO2 ABG HCO3 ABG O2 Saturation ABG Base Excess VBG pH VBG pCO2 VBG pO2 VBG O2 Sat (Francisca) VBG Base Excess FiO2 Sodium Potassium Chloride Carbon Dioxide Anion Gap BUN Creatinine Estim Creat Clear Calc eGFR BUN/Creatinine Ratio Glucose Calculated Osmolality Lactic Acid 9.0 H* 9.8 H* 10.3 H* Calcium Corrected Calcium Phosphorus Total Bilirubin AST ALT Alkaline Phosphatase Total Protein Albumin Globulin Albumin/Globulin Ratio Beta-Hydroxybutyrate/Acetoacetate Random Vancomycin Urine Legionella Ag 10/04/24 10/04/24 10/04/24 06:00 06:44 09:10 WBC 26.7 H 25.9 H RBC 3.06 L 3.00 L Hgb 8.4 L 8.4 L Hct 28.7 L 28.2 L MCV 94 94 MCH 27.5 28.0 MCHC 29.3 L 29.8 L RDW Std Deviation 85.0 H 83.8 H Plt Count 209 D 210 Neut % (Auto) 85 H 85 H Lymph % (Auto) 7 L 7 L Benson % (Auto) 5 6 Eos % (Auto) 0 0 Baso % (Auto) 0 0 Neut # (Auto) 22.8 H 21.9 H Lymph # (Auto) 1.9 1.9 Benson # (Auto) 1.4 H 1.6 H Eos # (Auto) 0.0 0.0 Baso # (Auto) 0.0 0.1 Immature Gran # (Auto) 0.52 H 0.41 H Absolute Nucleated RBC 0.13 H 0.19 H Immature Gran % 2 H 2 H Nucleated RBC % 1 H 1 H PT 30.2 H* D INR 3.0 H APTT 110.8 H* D Fibrinogen 153 L D-Dimer 3710 H Puncture Site Arterial Line ABG pH 6.87 L* D ABG pCO2 29 L ABG pO2 100 ABG HCO3 5 L* ABG O2 Saturation 96 ABG Base Excess -27 L VBG pH 6.88 L VBG pCO2 29 L VBG pO2 95 H VBG O2 Sat (Francisca) 96 VBG Base Excess -26 L FiO2 40 Sodium 134 L 136 Potassium 5.6 H D 5.4 H Chloride 107 107 Carbon Dioxide < 10.0 L* < 10.0 L* Anion Gap 17 H 19 H BUN 43 H 43 H Creatinine 4.1 H* D 4.2 H* Estim Creat Clear Calc 23.0 L 22.5 L eGFR 17 L 17 L BUN/Creatinine Ratio 10 L 10 L Glucose 93 95 Calculated Osmolality 279 282 Lactic Acid 11.8 H* 13.6 H* Calcium 8.2 L 8.0 L Corrected Calcium 9.2 9.2 Phosphorus 10.3 H Total Bilirubin 22.7 H* D AST 1391 H* ALT 232 H Alkaline Phosphatase 92 D Total Protein 6.3 Albumin 2.7 L 2.5 L Globulin 3.6 H Albumin/Globulin Ratio 0.8 L Beta-Hydroxybutyrate/Acetoacetate Random Vancomycin 22.6 Urine Legionella Ag Assessment & Plan Additional Plan Additional Plan: In summary this is a 44yo M admitted to the ICU with acute resp failure and shock a/p [employer] Encephalopathy- 2/2 sepsis and hepatic -> on lactulose and abx. on sedation h/o ATOH abuse CV Shock- cheetah placed for hemodynamics, CVP, SVO2, bedside echo checked, pt has a distributive shock likely due to sepsis. on abx, cx pending. started on steroids for refractory septic shock. give a 1x dose methylene blue today. vasopressor needs increasing, will do diagnostic para for cx Resp Acute Resp Failure- currently intubated and on sedation, fu with ABG and CXR , on MV ARDS- on LTVV as tolerated 6cc/kg/IBW - Pplat <30 - permissive hypercapnea - required NMB for ~24hrs -> nimbex held yesterday evening along with versed - improved FiO2 needs and down on PEEP and FiO2 CAP- on abx, cx pending Renal SMILEY- minimal UOP and virtually anuric - monitor i/os - avoid nephrotoxins - nephrology consulted for profound acidosis and ? need for emergency HD - HD line placed and for CRRT today Acidosis- LA increasing, pt with a triple disorder including AGMA/NAGMA and respiratory acidosis HyperK- pt will undergo CRRT GI Cirrhosis- on lactulose and rifaximin, aldactone on hold Ischemic hepatitis- 2/2 profound shock, on vasopressors GI proph- PPI Endo Hypoglycemia- on [id number] Heme Anemia- at baseline, no active bleeding noted DVT proph- heparin 5000 Leukocytosis- 2/2 sepsis and infectious process Coagulopathy- due to liver cirrhosis and ischemic insult, no active bleeding noted Thrombophlebitis- conservative measures, ID Sepsis- on vanc/zosyn, bcx, sputum cx, Ucx sent. 1/2 bottles GPC from 09/29 case d/w ICU team code status d/w family labs, imaging, records reviewed ~48ccmin required for eval, exam, review, intervention, discussion and formulation of POC for this critically ill pt with resp failure and shock at high risk for further and ongoing decompensation Provider Notation Provider Notation: Although this document has been carefully reviewed, there may still be some phonetic and other typographical errors. These errors are purely grammatical due to imperfections in the software program and should not be construed in any way to compromise the substance of the patient's medical care during this visit. Thank you for the opportunity and privilege in assisting you with this patient's care and management.
--- NOTE | 2024-10-04 11:26 | PD.RESPROC ---
Procedures Procedure Date / Time 10/04/24 1126 Central Line Placement Right Femoral: Indication(s): other Informed consent obtained: obtained from surrogate decision maker Time out done, and the following verified: correct patient, side and site, procedure, patient position and implants and/or equipment Patient placed on monitor/pulse ox: Yes Hand Hygiene: scrub Max Sterile Barrier Techniques used: cap, mask, sterile gown, sterile gloves and sterile full body drape Central line prep: Povidone-Iodine 1%, Chlorhexidine scrub and sterile drapes applied Ultrasound used for placement: Yes Sterile Technique if Ultrasound used, including sterile gel: yes Central line lumen inserted: triple Post procedure: sutured in place, good blood return, all ports aspirated, flushed, capped and sterile dressing applied Patient tolerated procedure: well EBL(ml): 10 Procedure comment: Initial femoral vein evaluation done. Placement sites clean with chlorhexidine prep. Sterile drape applied to the right femoral region. Ultrasound with probe cover used to reevaluate site of insertion. Lidocaine infiltration and then, needle inserted into the right internal jugular vein. Needle advanced and aspiration with venous blood and filling chamber, syringe detached from needle and guidewire introduced into the syringe, continuously advanced. Needle removed over guidewire, ultrasound used to confirm placement and vein. Scalpel was used over a wire to slightly enlarge insertion site, dilator introduced and subsequently, Tri-radha HD catheter, guidewire removed and catheter advanced into the vessel. All ports of triple-lumen catheter aspirated and flushed and then capped. Catheter sutured in place with Biopatch and Tegaderm over. Proceure done under supervision of attending physician, Dr Contreras Olmedo MD PGY-1
--- NOTE | 2024-10-04 11:36 | ESPR_ITS ---
<Statement entered by Tierney Capps MD - 10/04/24 12:56> The patient, was seen and examined at the bedside today. He was placed on Cheetah monitor yesterday and has shown some responsiveness to fluids. A 1- liter bolus and albumin were administered. However, his lactic acid levels continue to rise. The patient has developed a severe mixed acidotic disorder, with a pH of 6.87 and a delta/delta gap below 1, indicative of underlying NAGMA and AGMA. Multiple doses of bicarbonate were given overnight. The patient also had four large bowel movements, likely related to lactulose 20 mg four times daily, which is being used for hyperammonemia that may be secondary to hepatic encephalopathy. The patient is currently on safe ventilatory parameters to avoid barotrauma, with permissive hypercapnia allowed. Nephrology is closely following the case, as the patient's urine output remains significantly impaired. In the last 24 hours, only 10 cc of urine was produced. Creatinine levels continue to rise, currently at 4.1, and potassium is elevated at 5.6. Hyperphosphatemia was also noted. Based on these findings,(refractory acidosis, anuria, electrolyte disbalance, encephalopathy,) the decision was made to initiate CRRT. The patient's vasopressor requirements have significantly increased. To address this, hydrocortisone has been added to reduce both the need for vasopressors and the inflammatory response associated with sepsis. We will continue to closely monitor renal function through frequent renal panels and ABGs . Additionally, a diagnostic paracentesis will be performed to help rule out or confirm spontaneous bacterial peritonitisas as the potential source of the sepsis. The patient is currently receiving Zosyn and vancomycin for broad-spectrum antibiotic coverage. The patient's sister, who is the point of contact, was updated on the current situation, including the guarded prognosis and progressively worsening multiorgan system dysfunction. She has decided to keep the patient full code and intends to visit tomorrow. Patient care was discussed with attending physician Dr. Contreras Capps MD PGY-2 Documentation for date of: 10/04/24 Subjective Subjective Interval history: Patient seen and examined at bedside. Overnight, continue to be in high pressors demand. Levophed at 0.7 with vaso at 0.03, continues to be on fentanyl and propofol. IV hydrocortisone added to attempt to reduce pressor requirements. Patient received another liter of IV fluids overnight as well as albumin. Lactic acid continues to be elevated, currently at 13.6. Patient has continued to be anuric, with only able to 10 cc urine output overnight. His CO2 in the 90s. Other labs evaluated, creatinine elevated to 4.1, potassium of 5.6, elevated transaminases within the values of ischemic hepatitis and uptrending WBCs. Nephrology consulted for emergent dialysis, consent obtained from family for CRRT. Bicarb pushes also given Will continue renal panel as well as ABGs every 6 hours Additionally, will do a diagnostic paracentesis to exclude SBP as additional source of sepsis. Family has been contacted and updated, patient remains to be full code, will have a goals of care discussion once all concerned parties are available Exam Vital Signs Temp Pulse Resp BP Pulse Ox O2 Del Method O2 Flow Rate 97.3 F 104 H 32 H 80/43 L 92 L Mechanical Ventilation 30 10/04/24 10:47 10/04/24 11:30 10/04/24 10:47 10/04/24 11:30 10/04/24 11:00 10/03/24 05:30 10/02/24 13:05 FiO2 40 10/04/24 10:36 Narrative Exam GENERAL: GCS-3T, on propofol and fentanyl sedation holiday NEURO: Unable to assess, GCS-3T HEENT: Dry mucosa. Icteric sclera CARDIO: No chest pain on palpation. Tachycardic, regular rhythm, no murmurs PULM: Crackles bilaterally. GI: Abdomen firm, distended, positive fluid wave. URO/FLAKER TENDER:: No further abnormalities noted. SKIN/MSK/EXT: Icteric skin. Bilateral trace pitting edema in lower extremities. Upper extremities edema R>L Objective Labs 10/04/24 09:10 10/04/24 09:10 Labs: Laboratory Results - last 24 hr 09/30/24 10/03/24 10/03/24 17:30 11:35 16:00 WBC RBC Hgb Hct MCV MCH MCHC RDW Std Deviation Plt Count Neut % (Auto) Lymph % (Auto) Jackson % (Auto) Eos % (Auto) Baso % (Auto) Neut # (Auto) Lymph # (Auto) Jackson # (Auto) Eos # (Auto) Baso # (Auto) Immature Gran # (Auto) Absolute Nucleated RBC Immature Gran % Nucleated RBC % PT INR APTT Fibrinogen D-Dimer Puncture Site Arterial Line ABG pH 7.10 L* ABG pCO2 33 ABG pO2 92 ABG HCO3 10 L ABG O2 Saturation 97 ABG Base Excess -18 L VBG pH VBG pCO2 VBG pO2 VBG O2 Sat (Francisca) VBG Base Excess FiO2 40 Sodium Potassium Chloride Carbon Dioxide Anion Gap BUN Creatinine Estim Creat Clear Calc eGFR BUN/Creatinine Ratio Glucose Calculated Osmolality Lactic Acid 9.0 H* Calcium Corrected Calcium Phosphorus Total Bilirubin AST ALT Alkaline Phosphatase Total Protein Albumin Globulin Albumin/Globulin Ratio Random Vancomycin Urine Legionella Ag NOT DETECTED 10/03/24 10/03/24 10/04/24 18:51 22:41 06:00 WBC 26.7 H RBC 3.06 L Hgb 8.4 L Hct 28.7 L MCV 94 MCH 27.5 MCHC 29.3 L RDW Std Deviation 85.0 H Plt Count 209 D Neut % (Auto) 85 H Lymph % (Auto) 7 L Jackson % (Auto) 5 Eos % (Auto) 0 Baso % (Auto) 0 Neut # (Auto) 22.8 H Lymph # (Auto) 1.9 Jackson # (Auto) 1.4 H Eos # (Auto) 0.0 Baso # (Auto) 0.0 Immature Gran # (Auto) 0.52 H Absolute Nucleated RBC 0.13 H Immature Gran % 2 H Nucleated RBC % 1 H PT INR APTT Fibrinogen D-Dimer Puncture Site ABG pH ABG pCO2 ABG pO2 ABG HCO3 ABG O2 Saturation ABG Base Excess VBG pH 6.88 L VBG pCO2 29 L VBG pO2 95 H VBG O2 Sat (Francisca) 96 VBG Base Excess -26 L FiO2 Sodium 134 L Potassium 5.6 H D Chloride 107 Carbon Dioxide < 10.0 L* Anion Gap 17 H BUN 43 H Creatinine 4.1 H* D Estim Creat Clear Calc 23.0 L eGFR 17 L BUN/Creatinine Ratio 10 L Glucose 93 Calculated Osmolality 279 Lactic Acid 9.8 H* 10.3 H* 11.8 H* Calcium 8.2 L Corrected Calcium 9.2 Phosphorus Total Bilirubin 22.7 H* D AST 1391 H* ALT 232 H Alkaline Phosphatase 92 D Total Protein 6.3 Albumin 2.7 L Globulin 3.6 H Albumin/Globulin Ratio 0.8 L Random Vancomycin 22.6 Urine Legionella Ag 10/04/24 10/04/24 06:44 09:10 WBC 25.9 H RBC 3.00 L Hgb 8.4 L Hct 28.2 L MCV 94 MCH 28.0 MCHC 29.8 L RDW Std Deviation 83.8 H Plt Count 210 Neut % (Auto) 85 H Lymph % (Auto) 7 L Jackson % (Auto) 6 Eos % (Auto) 0 Baso % (Auto) 0 Neut # (Auto) 21.9 H Lymph # (Auto) 1.9 Jackson # (Auto) 1.6 H Eos # (Auto) 0.0 Baso # (Auto) 0.1 Immature Gran # (Auto) 0.41 H Absolute Nucleated RBC 0.19 H Immature Gran % 2 H Nucleated RBC % 1 H PT 30.2 H* D INR 3.0 H APTT 110.8 H* D Fibrinogen 153 L D-Dimer 3710 H Puncture Site Arterial Line ABG pH 6.87 L* D ABG pCO2 29 L ABG pO2 100 ABG HCO3 5 L* ABG O2 Saturation 96 ABG Base Excess -27 L VBG pH VBG pCO2 VBG pO2 VBG O2 Sat (Francisca) VBG Base Excess FiO2 40 Sodium 136 Potassium 5.4 H Chloride 107 Carbon Dioxide < 10.0 L* Anion Gap 19 H BUN 43 H Creatinine 4.2 H* Estim Creat Clear Calc 22.5 L eGFR 17 L BUN/Creatinine Ratio 10 L Glucose 95 Calculated Osmolality 282 Lactic Acid 13.6 H* Calcium 8.0 L Corrected Calcium 9.2 Phosphorus 10.3 H Total Bilirubin AST ALT Alkaline Phosphatase Total Protein Albumin 2.5 L Globulin Albumin/Globulin Ratio Random Vancomycin Urine Legionella Ag ABG Interpretation ABG results: 09/29/24 10/02/24 10/02/24 19:27 11:59 17:09 ABG pH 7.41 7.39 7.29 L D ABG pCO2 24 L 24 L 32 ABG pO2 58 L* 108 D 86 D ABG HCO3 15 L 14 L 15 L ABG O2 Saturation 92 99 H 97 ABG Base Excess -8 L -10 L -10 L VBG pH VBG pCO2 VBG pO2 VBG Base Excess 10/02/24 10/02/24 10/02/24 19:42 21:33 22:35 ABG pH 7.12 L* D 7.21 L 7.25 L ABG pCO2 51 H D 41 D 33 ABG pO2 334 H D 54 L* D 233 H D ABG HCO3 17 L 16 L 14 L ABG O2 Saturation 101 H 84 L 101 H ABG Base Excess -12 L -11 L -12 L VBG pH VBG pCO2 VBG pO2 VBG Base Excess 10/03/24 10/03/24 10/03/24 06:49 09:59 11:35 ABG pH 7.17 L* 7.10 L* 7.10 L* ABG pCO2 37 36 33 ABG pO2 85 D 83 92 ABG HCO3 14 L 11 L 10 L ABG O2 Saturation 96 95 97 ABG Base Excess -14 L -17 L -18 L VBG pH VBG pCO2 VBG pO2 VBG Base Excess 10/04/24 10/04/24 06:00 06:44 ABG pH 6.87 L* D ABG pCO2 29 L ABG pO2 100 ABG HCO3 5 L* ABG O2 Saturation 96 ABG Base Excess -27 L VBG pH 6.88 L VBG pCO2 29 L VBG pO2 95 H VBG Base Excess -26 L Quality Measures Quality Measures sepsis Current suspected stage: sepsis Possible source: GI tract/intra-abdominal Blood cultures ordered: yes Antibiotic ordered: Yes Assessment & Plan Assessment Current Active Medications: Generic Name Dose Route Start Last Admin Trade Name Freq PRN Reason Stop Dose Admin Acetaminophen 650 mg 09/30/24 01:41 10/01/24 21:46 Acetaminophen 325 Mg Tablet PO 10/30/24 01:40 650 mg Q8H PRN Administration Fever >101.5 Citric Acid/Sodium Citrate 30 ml 09/30/24 11:30 10/03/24 12:54 Citric Acid/Sodium Citr 15 Ml Udc (Bicitra) PO 10/30/24 11:29 Not Given BID CATHY Furosemide 20 mg 10/01/24 09:00 10/03/24 12:54 Furosemide Inj 10 Mg/Ml Vial 2 Ml IVP 10/31/24 08:59 Not Given QDAY CATHY Heparin Sodium (Porcine) 5,000 unit 10/02/24 22:00 10/04/24 05:20 Heparin Sod Inj 5000 Unit/Ml Vial SC 10/16/24 21:59 5,000 unit Q8HR CATHY Administration Hydrocortisone Sodium Succinate 50 mg 10/03/24 18:00 10/04/24 05:21 Hydrocortisone Sod Succ Inj 100 Mg Vial IV 11/02/24 17:59 50 mg Q6HR CATHY Administration Piperacillin/Tazobactam/Dextrose 3.375 gm in 50 mls @ 12.5 mls/hr 09/30/24 14:00 10/04/24 05:21 Zosyn IV 10/07/24 13:59 12.5 mls/hr Q8HR CATHY Administration Protocol Norepinephrine Bitartrate 16 mg in 250 mls @ 3.551 mls/hr 10/02/24 17:22 10/04/24 07:32 Levophed In Ns 16mg/250ml IV 11/01/24 17:21 0.7 mcg/kg/min .Q24H PRN 49.711 mls/hr PER PROTOCOL Administration Protocol 0.05 MCG/KG/MIN Fentanyl Citrate 2,500 mcg in 250 mls @ 2.5 mls/hr 10/02/24 18:31 10/03/24 20:00 Sublimaze Inj 2,500 Mcg/250 Ml Bag IV 10/07/24 17:22 200 mcg/hr .Q24H PRN 20 mls/hr PER PROTOCOL Titration Protocol 25 MCG/HR Cisatracurium Besylate 200 mg/ 520 mls @ 11.817 mls/hr 10/02/24 20:14 10/03/24 15:45 Sodium Chloride IV 11/01/24 20:13 0 mcg/kg/min .Q24H PRN 0 mls/hr Per Protocol Titration Protocol 1 MCG/KG/MIN Midazolam HCl 100 mg in 100 mls @ 1 mls/hr 10/03/24 07:41 10/03/24 16:45 Versed Pf Inj In Ns Premix IV 10/08/24 07:40 0 mg/hr .Q24H PRN 0 mls/hr PER PROTOCOL Titration Protocol 1 MG/HR Propofol 1,000 mg in 100 mls @ 2.256 mls/hr 10/03/24 08:09 10/04/24 06:34 Diprivan Ivpb IV 11/01/24 18:04 30 mcg/kg/min .Q24H PRN 13.536 mls/hr PER PROTOCOL Administration Protocol 5 MCG/KG/MIN Vasopressin/Sodium Chloride 20 unit in 100 mls @ 9 mls/hr 10/03/24 07:42 10/03/24 16:56 Vasostrict/Ns Ivpb IV 11/02/24 07:41 0.03 unit/min .Q11H7M PRN 9 mls/hr PER PROTOCOL Administration Protocol 0.03 UNIT/MIN Albumin Human 25 gm in 100 mls @ 100 mls/hr 10/04/24 03:31 10/04/24 04:10 Albuminar-25 Ivpb IV 10/07/24 03:30 100 mls/hr QDAY CATHY Administration Dextrose/Lactated Ringer's 1,000 mls @ 100 mls/hr 10/04/24 05:45 10/04/24 06:00 D5-Lr IV 11/03/24 05:44 100 mls/hr .Q10H CATHY Administration Vancomycin/Sodium Chloride 200 mls @ 120 mls/hr 10/04/24 10:00 Vancomycin/Ns 1 Gm Ivpb IV 10/04/24 11:39 X1 ONE Lactulose 20 gm 09/30/24 02:45 10/04/24 05:21 Lactulose Syrup 20 Gm/30 Ml Udc PO 10/30/24 02:44 20 gm QID CATHY Administration Protocol Ondansetron HCl 4 mg 09/30/24 01:50 10/01/24 18:18 Ondansetron Inj 2 Mg/Ml Inj 2 Ml IV 10/30/24 01:49 4 mg Q6H PRN Administration NAUSEA OR VOMITING Protocol Pantoprazole Sodium 40 mg 10/02/24 20:00 10/03/24 20:29 Pantoprazole Inj 40 Mg Vial IVP 11/01/24 19:59 40 mg BID CATHY Administration Pharmacy Consult 1 each 09/30/24 02:31 Pharmacy Renal Dose Adjustment 1 Ea XX 10/30/24 02:30 PRN PRN CONSULT Pharmacy Consult 1 each 09/30/24 16:30 Vancomycin Pharmacy To Dose 1 Each Each IV 10/30/24 16:29 QDAY PRN CONSULT Pharmacy Consult 1 each 10/04/24 09:45 Vancomycin Pharmacy To Dose 1 Each Each IV 11/03/24 09:44 QDAY PRN CONSULT Rifaximin 550 mg 09/30/24 02:45 10/03/24 20:28 Rifaximin 550 Mg Tablet PO 10/07/24 02:44 550 mg BID CATHY Administration Spironolactone 12.5 mg 09/30/24 11:30 10/03/24 12:54 Spironolactone 25 Mg Tablet PO 10/30/24 11:29 Not Given BID CATHY Plan Summary: The patient is a 44-year-old male with a past medical history of end- stage liver disease, alcoholic liver cirrhosis with esophageal varices status post banding who presented to the ED on 09/30/2024, brought in by sister due to altered mental status that was noticed about a day prior to presentation. Admitted to the ICU for intubation and airway support. Neuro Acute hepatic encephalopathy-resolved Sedated- On Propofol and fentanyl Will turn off sedation and give vacation, re-assess patient Cardiovascular #Shock, unknown etiology #Likely distributive from end stage liver disease vs sepsis Patient does have pneumonia, community vs acquired based on recent discharge. Started on broad spectrum antibiotics. Overnight, had a temperature of 100.5. Additionally, blood pressure was soft, he received 1 L of fluids and was still hypotensive. Pressors-Levophed and vasopressin which started. Note that per chart review, lactic acid has been chronically elevated in past admissions. More significant elevation this time indicate an additional etiology Lactic acid this morning at 5.3, repeat at 7.0 Currently on Levophed and Vasopresin IV Hydrcortisone added Plan: -Continue Broad spectrum antibiotics -Continue pressor support, titrating for MAP >60 or SBP>90 -IV hydrocortisone Respiratory #Acute hypoxic respiratory failure #Moderate ARDS #Pneumonia The patient presented with chills and productive cough. ED, meds SIRS criteria with tachycardia and elevated WBCs. Chest x-ray was positive for lobar infiltrate. At the time, pH six 7.41 with pCO2 of 24 and bicarb of 15. Labs significant for leukocytosis and lactic acidosis. Patient was started on IV Zosyn for pneumonia, likely hospital-acquired based on recent discharge from hospital. MRSA nares negative. The patient developed worsening respiratory distress with tachypnea and increased work of breathing. Was placed on BiPAP and continued to be in respiratory distress. He was upgraded to the ICU for AHRF and consequent intubation. 10/03/2024- At bedside today, patient is sedated and paralyzed on propofol, fentanyl and Nimbex. ABG ths morning- pH-7.17, CO2-36, HCO3- 13.3. Vent settings adjusted, increased TV , RR already at 34 10/04/2024- Permissive hypercapnia allowed for ARDS. pH this morning showed- 6.87, CO2- 29, HCO3- 5. While still attempting to maintaining lung protective strategies, adjusting the tidal volume and RR. Plan: -Lung protective strategies- Ventilator settings for ARDS with low tidal volume (6cc/kg), plateau pressure <30 permissive hypercapnia. -Follow-up on cultures, new still pending -Continue IV Zosyn and vancomycin GI #End-stage liver disease #Hyperbilirubinemia #Ascites #History of esophageal varices s/p banding On admission his hemoglobin stable at 8.7. Coagulation panel showed prolonged PTT of 21.4, INR of 2.1, PTT 49.7, however there was no signs of active bleeding. Total bilirubin 25.1, magnesium 1.5, total bilirubin of 25.1, AST 68, ALT 46 with a ratio of 2:1 which possibly indicate exogenous hepatic consult such as alcohol or drugs. Ammonia level of 46, Pro-Adin 1.86. Patient has history of recurrent hepatic encephalopathy despite compliance to medications. Patient was sent to ultrasound-guided paracentesis, however there is not enough ascitic fluid for drainage. MELD score-29, 19.6 %/month mortality, child Hale class C 10/04/2024- Diagnostic paracentesis done, follow up culture, stain and cytology Plan: -Continue lactulose per OG tube, 20 3 times daily -Continue rifaximin -Continue to monitor H&H for signs of GI bleed -Follow up culture, stain and cytology of peritoneal fluid analysis Renal #Acute kidney injury-resolved On admission, the patient had a creatinine of 1.2. Creatinine about a week prior was 0.8. On date of admission, increased to 1.5. Today, creatinine still at 1.2 10/04/2023-creatinine this morning elevated at 2.3, likely as a result of shock. Will give IV fluids if patient is fluid responsive and repeat renal panel. Urine output 160 cc overnight. 10/05/2023- Creatinine at 4.1 today, urine output [id number] only overnight. Patient continues to be in acidosis. Nephrology consulted, hemodialysis/CRRT initiated. Plan: -Avoid nephrotoxic medications -Renally dose medications -Repeat panel every 6hrs # Metabolic acidosis #AGMA + NAGMA Anion gap of 11 with bicarb of 15 Likely due to increased bowel movements from lactulose administration 10/03/2024: Initial pH this morning significant for acidosis with bicarb of 13.3. Lactic acid of 5.3. Normal BHB Delta delta gap-0.85. Will obtain urine lytes evaluate urine anion gap and for etiology of NAGMA. 10/04/2024- Patient still has AGMA and NAGMA today. Bicarb this morning at 5, received 2 amps of bicarb. Patient has only made about 20ccs of urine in total. Plan: -Random urine electrolytes -ABG Q6H Heme #Leukocytosis #Anemia #Coagulopathy In the setting of end-stage liver disease with esophageal varices status post banding. Patient also found to have sepsis. 10/03/2024-leukocytosis with downtrending WBC, Anemia with hemoglobin of 8, stable for patient. 10/04/2024- Uptrending WBC today. Anemia but stable hemoglobin. Elevated PT, PTT and low fibrinogen Endo #Hypoglycemia Blood glucose this morning is 66, repeat at 64. Patient started on D10 drip at 30 cc/h. Continue blood glucose checks every 4 hours. 10/04/2024- Blood glucose overight was low on D10 at 50cc/hr, received DS-LR. Blood glcose this morning at 93. Will continue glucose checks Q4h and start on D10 drip if hypoglycemic. Plan: -Bedside glucose check every 4hrs ID #Sepsis secondary to pneumonia On IV Zosyn and vancomycin, see resp above 10/04/2024- Vancomycin trough elevated on 10/02/2024. Pharmacy dosing, medication was held. MSK #Upper extremity edema Bilateral upper extremity edema, R>L. Doppler US done yesterday was negative for DVT but was positive for thrombus in the superficial cephalic vein Health maintenance: Dispo: ICU for acute hypoxic respiratory failure with moderate ARDS Diet: N.p.o. GI: Pantoprazole 40 mg twice daily DVT: SC heparin Lines: Peripheral, right IJ, right HD Cath Code: Full Case was discussed with Dr Capps PGY-2 and attending physician, Dr Contreras Olmedo MD PGY-1 Disclaimer: This note was dictated by speech recognition. Minor errors in thermoplastic technician may be present due to voice recognition software.
[2024-10-04 11:37] LABS: Base Excess -22 (-3-3); HCO3 8 mEq/L (20-26); Inspired Oxygen, FIO2 40 %; O2 Saturation 87 % (91-98); PCO2 34 mmHg (32.0-48.0); PO2 62 mmHg (83-108)
[2024-10-04 11:40] LABS: Allen Test Not Performed; Puncture Site Arterial Line; pH, Arterial 6.99 (7.35-7.45)
--- NOTE | 2024-10-04 11:41 | PC.SS ---
SS update: patient's sister Marianna reached out requesting an overnight sitter for the patient. Provided Marianna's contact number to ICU charge nurse to discuss the matter with patient's sister.
[2024-10-04] MEDS: Norepinephrine/NS 16mg/250ml 16 MG/250 ML BAG 116.719 MG IV (11:48)
[2024-10-04] MEDS: PANTOPRAZOLE INJ 40 MG VIAL IVP ×2 (11:51→22:07)
[2024-10-04] MEDS: VANCOMYCIN/NS 1 GM IVPB 200 ML IV (11:54)
[2024-10-04] MEDS: rifaximin 550 MG TABLET PO ×2 (11:54→22:07)
[2024-10-04] MEDS: DEXTROSE 50%-WATER INJ 50 ML SYRINGE IV (14:08)
[2024-10-04] MEDS: DEXTROSE 10%-WATER 500 ML 40 ML IV (14:18)
--- NOTE | 2024-10-04 14:28 | PD.RESPROC ---
Procedures Procedure Date / Time 10/04/24 1426 Paracentesis Indication: Ascites Informed consent obtained: obtained from surrogate decision maker Time out done, and the following verified: correct patient, side and site, procedure, patient position and implants and/or equipment Procedure: diagnostic paracentesis Location: [facility] Local anesthetic used: lidocaine 1% Bedside ultrasound used: yes, Ascites confirmed and location marked Preparation: sterile prep and drape Fluid: clear EBL(ml): 1 Post procedure exam: other (Slightly tachycardic, hypotensive on pressors) Patient tolerated procedure: well Complications: none Procedure comment: Initial evaluation done by ultrasound, best pocket visualized in LLQ with about 5cm of fluid. Sterile drapes and scrub applied. Lidocaine used in infiltrating chosen site. 10cc syringe with needle advanced in peritoneal cavity while aspirating, peritoneal fluid aspirated- clear and non bloody. Band aid applied to site of aspiration. Sample sent for analysis Procedure done under supervision of attending physician, Dr Contreras Olmedo MD PGY-1 Disclaimer: This note was dictated by speech recognition. Minor errors in furnace charging machine operator may be present due to voice recognition software.
[2024-10-04] MEDS: VASOPRESSIN IN NS IVPB 20 UNIT/100 ML BAG 9 UNIT IV (14:39)
[2024-10-04] MEDS: Norepinephrine/NS 16mg/250ml 16 MG/250 ML BAG 94.931 MG IV (14:49)
[2024-10-04 15:13] LABS: Peritoneal Fluid WBC 85 /cmm
[2024-10-04 15:14] LABS: Peritoneal Fluid Appearance Clear; Peritoneal Fluid Color Yellow
[2024-10-04 15:15] LABS: Peritoneal Fluid Mononuclear 55 %; Peritoneal Fluid Polynuclear 45 %; RBC,Peritoneal Fluid 1000 /cmm
[2024-10-04 15:34] LABS: Amylase,Peritoneal Fluid 25 IU/L; Glucose,Peritoneal Fluid 80 mg/dL; LDH,Peritoneal Fluid 69 IU/L; Protein Total,Peritoneal Fluid < 2 g/dL
--- NOTE | 2024-10-04 15:39 | PC.SS ---
SS update: pending nephrology consultation.
[2024-10-04 16:13] LABS: Allen Test Not Performed; Base Excess -14 (-3-3); HCO3 13 mEq/L (20-26); Inspired Oxygen, FIO2 40 %; O2 Saturation 88 % (91-98); PCO2 32 mmHg (32.0-48.0); Puncture Site Arterial Line; pH, Arterial 7.22 (7.35-7.45)
[2024-10-04 16:14] LABS: PO2 58 mmHg (83-108)
[2024-10-04 16:41] LABS: Albumin, Serum 2.7 gm/dL (3.5-5.0); Anion Gap 24 (7-16); BUN/Creatinine Ratio 12 Ratio (12-20); Blood Urea Nitrogen 25 mg/dL (9-23); Calcium 7.4 mg/dL (8.3-10.6); Calcium (Corrected) 8.4 mg/dL (8.5-10.1); Chloride 99 mMol/L (98-107); Creatinine (Component) 2.1 mg/dL (0.6-1.3); Estimated Creatinine Clearance 44.9 mL/min (>60); Glucose 104 mg/dL (74-106); Osmolality,Calculated 276 (275-295); Phosphorous 5.1 mg/dL (2.4-5.1); Sodium 136 mMol/L (136-145); eGFR 39 See Note
[2024-10-04] MEDS: Norepinephrine/NS 16mg/250ml 16 MG/250 ML BAG 104.269 MG IV (17:50)
--- NOTE | 2024-10-04 18:03 | PD.RESCONSUL ---
HPI Data of Consult Consult date: 10/04/24 Requesting Physician: Vicki Chairez MD Admitting Provider: Oneal Cheatham MD Attending Provider: Vicki Chairez MD Primary Care Provider: Physician No Primary/Family Consult Narrative Reason for consult: Acute Renal failure History of present illness: Patient is sedated and mechanically ventilated, most of the history is taken from chart review Mr. Villegas is a 44-year-old male patient with past medical history of end-stage liver disease secondary to alcohol use disorder, esophageal varices s/p banding came to the hospital with complaints of altered mental status on 09/30/2024. Compliant with all his medications and is using lactulose. Last EGD was done in September 2024 that showed grade 1 esophageal varices, ulcers. Patient was admitted to the hospital for acute metabolic encephalopathy, likely due to hepatic encephalopathy from decompensated liver disease. Initially patient was admitted to floors and patient was found to have acute renal failure initially which resolved eventually but on 10/02/2024 patient was upgraded to the ICU as patient is tachypneic, tachycardic and was unable to tolerate BiPAP and intubated in ICU for acute respiratory failure. Nephrology was consulted in view of acute renal failure Labs as of 10/04/2024 showed WBC 26.7, Hb 8.4, platelets 209, sodium 134, potassium 5.6, bicarb <10, anion gap 17, BUN 43, creatinine 4.1, lactate 11.8, total bilirubin 22.7, AST 1391, ALT 232, albumin 2.7 At the time of examination, patient was intubated and sedated Patient was getting triflow catheter for CRRT On physical examination, patient appears icteric with swollen bilateral upper extremities and easy bruisability Will continue CRRT for 10 hours in view of electrolyte imbalance, severe metabolic acidosis, lactic acidosis cc:: cc: Vicki Chairez MD Review of Systems Review of Systems ROS Unobtainable: unobtainable due to mental status, unobtainable due to medical condition and due to endotracheal tube Past Medical History Past Medical History NEUROLOGIC: Negative Neurological Disorders or Seizures CARDIAC: Negative Cardiac Disorders or Congestive Heart Failure RESPIRATORY: Positive Respiratory Disorders and Pneumonia; Negative Chronic Obstructive Pulmonary Disease (COPD) or Asthma GASTROINTESTINAL: Positive Cirrhosis, Gastrointestinal Bleed and Esophageal Varices; Negative Gastrointestinal Disorders or Hepatitis GENITOURINARY: Negative Genitourinary Disorders or Renal Disease MUSCULOSKELETAL: Negative Musculoskeletal Disorders ENDOCRINE: Negative Endocrine Disorders, Diabetes Mellitus Type 1 or Diabetes Mellitus Type 2 HEMATOLOGIC: Positive Anemia; Negative Blood Disorders or Sickle Cell Disease OTHER HISTORY: Positive Hospitalization, Blood Transfusions and Chicken Pox; Negative Autoimmune Disease, Down Syndrome, Developmental Delay, Falls, Blood Transfusion Reaction, Anesthesia Reactions, MRSA, VRSA, Vancomycin-Resistant Enterococci, Human Immunodeficiency Virus (HIV), Measles, Mumps, Rubella ([place] Measles), Pertussis, Clostridium Difficile or Cancer Family History FAMILY HISTORY: Positive Family Respiratory Disorders and Family Cancer; Negative Family Psychiatric Problems, Family Cardiac Disorders, Family Gastrointestinal Problems, Family Surgery or Family Anesthesia Reaction Surgical History SURGICAL: Positive Abdominal Surgery Social History SMOKING STATUS: Unknown if ever smoked Exam Vital Signs Temp Pulse Resp BP Pulse Ox O2 Del Method O2 Flow Rate 98.1 F 112 H 32 H 94/39 L 92 L Mechanical Ventilation 30 10/04/24 16:00 10/04/24 18:00 10/04/24 10:47 10/04/24 18:00 10/04/24 17:00 10/03/24 05:30 10/02/24 13:05 FiO2 40 10/04/24 16:00 Narrative Exam General: Sedated and intubated-in ICU. HEENT: Normocephalic, atraumatic, mucous membranes moist.icteric Heart: Regular rate and rhythm, no murmurs. Lungs: Clear to auscultation with no wheezing or crackles. Abdomen: Soft, nondistended, nontender, positive bowel sounds. ?No guarding or rebound tenderness. Neurologic: Sedated, cannot assess neurological function Extremities: No edema in the lower extremities and edematous bilateral upper extremities Skin: Easy bruisability noted at the site of IV access Results Labs 10/06/24 07:30 10/06/24 03:25 Labs: Short CBC 10/04/24 10/04/24 Range/Units 06:00 09:10 WBC 26.7 H 25.9 H (3.8-10.6) Thou/mm3 Hgb 8.4 L 8.4 L (13.5-16.0) g/dL Hct 28.7 L 28.2 L (41.0-53.0) % Plt Count 209 D 210 (140-440) Thou/mm3 BMP 10/04/24 10/04/24 06:00 09:10 Sodium 134 L 136 Potassium 5.6 H D 5.4 H Chloride 107 107 Carbon Dioxide < 10.0 L* < 10.0 L* BUN 43 H 43 H Creatinine 4.1 H* D 4.2 H* Glucose 93 95 Calcium 8.2 L 8.0 L Liver Function 10/04/24 10/04/24 Range/Units 06:00 09:10 Total Bilirubin 22.7 H* D (0.3-1.2) mg/dL AST 1391 H* (0-34) U/L ALT 232 H (10-49) U/L Alkaline Phosphatase 92 D (46-116) U/L Albumin 2.7 L 2.5 L (3.5-5.0) gm/dL ABG Interpretation ABG results: 09/29/24 10/02/24 10/02/24 19:27 11:59 17:09 ABG pH 7.41 7.39 7.29 L D ABG pCO2 24 L 24 L 32 ABG pO2 58 L* 108 D 86 D ABG HCO3 15 L 14 L 15 L ABG O2 Saturation 92 99 H 97 ABG Base Excess -8 L -10 L -10 L VBG pH VBG pCO2 VBG pO2 VBG Base Excess 10/02/24 10/02/24 10/02/24 19:42 21:33 22:35 ABG pH 7.12 L* D 7.21 L 7.25 L ABG pCO2 51 H D 41 D 33 ABG pO2 334 H D 54 L* D 233 H D ABG HCO3 17 L 16 L 14 L ABG O2 Saturation 101 H 84 L 101 H ABG Base Excess -12 L -11 L -12 L VBG pH VBG pCO2 VBG pO2 VBG Base Excess 10/03/24 10/03/24 10/03/24 06:49 09:59 11:35 ABG pH 7.17 L* 7.10 L* 7.10 L* ABG pCO2 37 36 33 ABG pO2 85 D 83 92 ABG HCO3 14 L 11 L 10 L ABG O2 Saturation 96 95 97 ABG Base Excess -14 L -17 L -18 L VBG pH VBG pCO2 VBG pO2 VBG Base Excess 10/04/24 10/04/24 10/04/24 06:00 06:44 11:26 ABG pH 6.87 L* D 6.99 L* D ABG pCO2 29 L 34 ABG pO2 100 62 L D ABG HCO3 5 L* 8 L* ABG O2 Saturation 96 87 L ABG Base Excess -27 L -22 L VBG pH 6.88 L VBG pCO2 29 L VBG pO2 95 H VBG Base Excess -26 L 10/04/24 16:02 ABG pH 7.22 L D ABG pCO2 32 ABG pO2 58 L* ABG HCO3 13 L ABG O2 Saturation 88 L ABG Base Excess -14 L VBG pH VBG pCO2 VBG pO2 VBG Base Excess Quality Measures Quality Measures sepsis Current suspected stage: ruled out Possible source: GI tract/intra-abdominal Blood cultures ordered: yes Antibiotic ordered: Yes Medications Home Medications and Allergies Home Medications ?Medication ?Instructions ?Recorded ?Confirmed ?Type prednisone 20 mg tablet 20 mg PO DAILY 09/30/24 09/30/24 History Allergies Allergy/AdvReac Type Severity Reaction Status Date / Time No Known Allergies Allergy Verified 09/13/24 10:55 Visit Medications Acetaminophen (Acetaminophen 325 Mg Tablet) 650 mg PO Q8H PRN PRN Reason: Fever >101.5 Stop: 10/30/24 01:40 Last Admin: 10/01/24 21:46 Dose: 650 mg Citric Acid/Sodium Citrate (Citric Acid/Sodium Citr 15 Ml Udc (Bicitra)) 30 ml PO BID [facility] Stop: 10/30/24 11:29 Last Admin: 10/03/24 12:54 Dose: Not Given Furosemide (Furosemide Inj 10 Mg/Ml Vial 2 Ml) 20 mg IVP QDAY [facility] Stop: 10/31/24 08:59 Last Admin: 10/03/24 12:54 Dose: Not Given Heparin Sodium (Porcine) (Heparin Sod Inj 5000 Unit/Ml Vial) 5,000 unit SC Q8HR [facility] Stop: 10/16/24 21:59 Last Admin: 10/04/24 13:23 Dose: Not Given Hydrocortisone Sodium Succinate (Hydrocortisone Sod Succ Inj 100 Mg Vial) 50 mg IV Q6HR [facility] Stop: 11/02/24 17:59 Last Admin: 10/04/24 17:48 Dose: 50 mg Piperacillin/Tazobactam/Dextrose (Zosyn) 3.375 gm in 50 mls @ 12.5 mls/hr IV Q8HR [facility]; Protocol Stop: 10/07/24 13:59 Last Admin: 10/04/24 14:38 Dose: 12.5 mls/hr Fentanyl Citrate (Sublimaze Inj 2,500 Mcg/250 Ml Bag) 2,500 mcg in 250 mls @ 2.5 mls/hr IV .Q24H PRN; Protocol PRN Reason: PER PROTOCOL Stop: 10/07/24 17:22 Last Titration: 10/04/24 09:00 Dose: 0 mcg/hr, 0 mls/hr Cisatracurium Besylate 200 mg/ (Sodium Chloride) 520 mls @ 11.817 mls/hr IV .Q24H PRN; Protocol PRN Reason: Per Protocol Stop: 11/01/24 20:13 Last Titration: 10/03/24 15:45 Dose: 0 mcg/kg/min, 0 mls/hr Midazolam HCl (Versed Pf Inj In Ns Premix) 100 mg in 100 mls @ 1 mls/hr IV .Q24H PRN; Protocol PRN Reason: PER PROTOCOL Stop: 10/08/24 07:40 Last Titration: 10/03/24 16:45 Dose: 0 mg/hr, 0 mls/hr Propofol (Diprivan Ivpb) 1,000 mg in 100 mls @ 2.256 mls/hr IV .Q24H PRN; Protocol PRN Reason: PER PROTOCOL Stop: 11/01/24 18:04 Last Titration: 10/04/24 09:15 Dose: 0 mcg/kg/min, 0 mls/hr Vasopressin/Sodium Chloride (Vasostrict/Ns Ivpb) 20 unit in 100 mls @ 9 mls/hr IV .Q11H7M PRN; Protocol PRN Reason: PER PROTOCOL Stop: 11/02/24 07:41 Last Admin: 10/04/24 14:39 Dose: 0.03 unit/min, 9 mls/hr Albumin Human (Albuminar-25 Ivpb) 25 gm in 100 mls @ 100 mls/hr IV QDAY [facility] Stop: 10/07/24 03:30 Last Admin: 10/04/24 11:50 Dose: 100 mls/hr Epinephrine/Sodium Chloride (Adrenalin/Ns 4 Mg Ivpb) 4 mg in 250 mls @ 15.563 mls/hr IV .Q16H4M PRN; Protocol PRN Reason: per protocol Stop: 11/03/24 11:39 Norepinephrine Bitartrate (Levophed In Ns 16mg/250ml) 16 mg in 250 mls @ 3.891 mls/hr IV .Q24H PRN; Protocol PRN Reason: PER PROTOCOL Stop: 11/01/24 17:21 Last Admin: 10/04/24 17:50 Dose: 1.34 mcg/kg/min, 104.269 mls/hr Dextrose (D10w) 500 mls @ 40 mls/hr IV .[id number] [facility] Stop: 11/03/24 14:29 Last Admin: 10/04/24 14:18 Dose: 40 mls/hr Lactulose (Lactulose Syrup 20 Gm/30 Ml Udc) 20 gm PO QID [facility]; Protocol Stop: 10/30/24 02:44 Last Admin: 10/04/24 17:48 Dose: 20 gm Ondansetron HCl (Ondansetron Inj 2 Mg/Ml Inj 2 Ml) 4 mg IV Q6H PRN; Protocol PRN Reason: NAUSEA OR VOMITING Stop: 10/30/24 01:49 Last Admin: 10/01/24 18:18 Dose: 4 mg Pantoprazole Sodium (Pantoprazole Inj 40 Mg Vial) 40 mg IVP BID [facility] Stop: 11/01/24 19:59 Last Admin: 10/04/24 11:51 Dose: 40 mg Pharmacy Consult (Pharmacy Renal Dose Adjustment 1 Ea) 1 each XX PRN PRN PRN Reason: CONSULT Stop: 10/30/24 02:30 Pharmacy Consult (Vancomycin Pharmacy To Dose 1 Each Each) 1 each IV QDAY PRN PRN Reason: CONSULT Stop: 11/03/24 09:44 Rifaximin (Rifaximin 550 Mg Tablet) 550 mg PO BID [facility] Stop: 10/07/24 02:44 Last Admin: 10/04/24 11:54 Dose: 550 mg Spironolactone (Spironolactone 25 Mg Tablet) 12.5 mg PO BID [facility] Stop: 10/30/24 11:29 Last Admin: 10/03/24 12:54 Dose: Not Given Discontinued Medications Acetaminophen (Acetaminophen 325 Mg Tablet) 650 mg PO X1 ONE Stop: 09/30/24 14:58 Last Admin: 09/30/24 15:05 Dose: 650 mg Acetaminophen (Acetaminophen 325 Mg Tablet) 650 mg PO X1 ONE Stop: 09/30/24 16:25 Last Admin: 09/30/24 16:30 Dose: 650 mg Dextrose (Dextrose 50%-Water Inj 50 Ml Syringe) 50 ml IV X1 ONE Stop: 10/03/24 17:48 Last Admin: 10/03/24 17:59 Dose: 50 ml Dextrose (Dextrose 50%-Water Inj 50 Ml Syringe) 50 ml IV X1 ONE Stop: 10/03/24 17:49 Last Admin: 10/03/24 17:50 Dose: Not Given Dextrose (Dextrose 50%-Water Inj 50 Ml Syringe) 50 ml IV X1 ONE Stop: 10/04/24 14:07 Last Admin: 10/04/24 14:08 Dose: 50 ml Etomidate (Etomidate Inj 2 Mg/Ml Vial 10 Ml) 15 mg IVP X1 ONE Stop: 10/02/24 17:21 Last Admin: 10/02/24 17:46 Dose: 15 mg Fluconazole (Fluconazole 100 Mg Tablet) 400 mg PO QDAY [facility] Stop: 10/07/24 08:59 Last Admin: 10/01/24 08:50 Dose: 400 mg Furosemide (Furosemide Inj 10 Mg/Ml Vial 2 Ml) 20 mg IVP X1 ONE Stop: 09/30/24 11:19 Last Admin: 09/30/24 11:53 Dose: 20 mg Furosemide (Furosemide Inj 10 Mg/Ml 4ml Vial) 40 mg IVP X1 ONE Stop: 10/02/24 01:18 Last Admin: 10/02/24 01:32 Dose: 40 mg Heparin Sodium (Porcine) (Heparin Sod Inj 1000 Unit/Ml Vial 10 Ml) 9,500 unit IV X1 ONE Stop: 10/04/24 08:26 Last Admin: 10/04/24 10:58 Dose: 9,500 unit Heparin Sodium (Porcine) (Heparin Sod Inj 5000 Unit/Ml Vial) 5,000 unit INDWELLCAT X1 ONE Stop: 10/04/24 08:31 Last Admin: 10/04/24 12:14 Dose: Not Given Sodium Chloride (Ns) 1,000 mls @ 1,000 mls/hr IV .Q1H ONE Stop: 09/29/24 19:59 Last Infusion: 09/29/24 21:06 Dose: Infused Piperacillin Sod/Tazobactam (Sod 4.5 gm/ Sodium Chloride) 100 mls @ 200 mls/hr IV X1 ONE Stop: 09/29/24 19:33 Last Infusion: 09/29/24 21:04 Dose: Infused Doxycycline Hyclate 100 mg/ (Sodium Chloride) 100 mls @ 100 mls/hr IV X1 ONE Stop: 09/29/24 20:03 Last Infusion: 09/29/24 21:04 Dose: Infused Magnesium Sulfate (Magnesium Sulfate Ivpb) 2 gm in 50 mls @ 25 mls/hr IV X1 ONE Stop: 09/30/24 01:10 Last Infusion: 09/30/24 01:45 Dose: Infused Potassium Chloride (Kcl Ivpb) 10 meq in 100 mls @ 100 mls/hr IV Q1H [facility] Stop: 09/30/24 01:10 Last Infusion: 09/30/24 04:50 Dose: Infused Diltiazem HCl (Diltiazem In D5w 125 Mg) 125 mg in 125 mls @ 5 mls/hr IV .Q24H [facility] Stop: 10/30/24 01:38 Piperacillin Sod/Tazobactam (Sod 3.375 gm/ Sodium Chloride) 50 mls @ 12.5 mls/hr IV Q8HR [facility] Stop: 10/07/24 13:59 Piperacillin Sod/Tazobactam (Sod 4.5 gm/ Sodium Chloride) 100 mls @ 200 mls/hr IV X1 ONE Stop: 09/30/24 03:14 Last Infusion: 09/30/24 03:45 Dose: Infused Albumin Human (Albuminar-25 Ivpb) 25 gm in 100 mls @ 100 mls/hr IV TID [facility] Stop: 10/01/24 05:59 Last Admin: 09/30/24 21:19 Dose: 100 mls/hr Vancomycin HCl 1,500 mg/ (Sodium Chloride) 500 mls @ 120 mls/hr IV X1 ONE Stop: 09/30/24 20:39 Last Admin: 09/30/24 16:48 Dose: 120 mls/hr Vancomycin HCl (Vancomycin/Water 1250 Mg Ivpb) 250 mls @ 120 mls/hr IV Q12H [facility]; Protocol Stop: 10/08/24 09:59 Vancomycin HCl/Dextrose (Vancomycin/D5w 1,250 Mg Ivpb) 250 mls @ 120 mls/hr IV Q12H [facility]; Protocol Stop: 10/08/24 09:59 Last Admin: 10/02/24 10:30 Dose: Not Given Magnesium Sulfate (Magnesium Sulfate Ivpb) 4 gm in 50 mls @ 12.5 mls/hr IV X1 ONE Stop: 10/02/24 11:59 Last Admin: 10/02/24 11:10 Dose: 12.5 mls/hr Lactated Ringer's (Lactated Ringers) 1,000 mls @ 999 mls/hr IV .Q1H1M ONE Stop: 10/02/24 18:21 Last Admin: 10/02/24 19:31 Dose: Not Given Norepinephrine Bitartrate (Levophed In Ns 16mg/250ml) 16 mg in 250 mls @ 3.551 mls/hr IV .Q24H PRN; Protocol PRN Reason: PER PROTOCOL Stop: 11/01/24 17:21 Last Titration: 10/04/24 11:40 Dose: 2 mcg/kg/min, 142.031 mls/hr Fentanyl Citrate (Sublimaze Inj 2,500 Mcg/250 Ml Bag) 2,500 mcg in 250 mls @ 2.5 mls/hr IV .Q24H PRN; Protocol PRN Reason: PER PROTOCOL Stop: 10/07/24 17:22 Propofol (Diprivan Ivpb) 1,000 mg in 100 mls @ 2.273 mls/hr IV .Q24H PRN; Protocol PRN Reason: PER PROTOCOL Stop: 11/01/24 18:04 Last Titration: 10/03/24 13:00 Dose: 30 mcg/kg/min, 13.635 mls/hr Lactated Ringer's (Lactated Ringers) 1,000 mls @ 999 mls/hr IV .Q1H1M ONE Stop: 10/02/24 22:00 Last Infusion: 10/02/24 22:12 Dose: Infused Albumin Human (Albuminar-25 Ivpb) 25 gm in 100 mls @ 100 mls/hr IV X1 ONE Stop: 10/03/24 02:16 Last Infusion: 10/03/24 03:00 Dose: Infused Vancomycin/Sodium Chloride (Vancomycin/Ns 750 Mg Ivpb) 750 mg in 150 mls @ 120 mls/hr IV QDAY@1000 [facility]; Protocol Stop: 10/10/24 09:59 Last Admin: 10/03/24 12:57 Dose: 120 mls/hr Potassium Chloride (Kcl Ivpb) 20 meq in 100 mls @ 50 mls/hr IV Q2H [facility] Stop: 10/03/24 11:11 Last Admin: 10/03/24 11:20 Dose: 50 mls/hr Dextrose (D10w 1000 Ml) 1,000 mls @ 30 mls/hr IV .Q24H [facility] Stop: 10/04/24 11:06 Last Admin: 10/03/24 13:58 Dose: Not Given Sodium Chloride (Ns) 250 mls @ 999 mls/hr IV .Q16M ONE Stop: 10/03/24 13:06 Last Admin: 10/03/24 12:51 Dose: 999 mls/hr Dextrose (D10w) 500 mls @ 30 mls/hr IV .[id number] [facility] Stop: 10/04/24 06:24 Last Admin: 10/03/24 11:07 Dose: 30 mls/hr Lactated Ringer's (Lactated Ringers) 1,000 mls @ 999 mls/hr IV .Q1H1M ONE Stop: 10/03/24 16:45 Last Admin: 10/03/24 15:45 Dose: 999 mls/hr Dextrose (D10w) 500 mls @ 50 mls/hr IV .Q10H [facility] Stop: 10/04/24 03:46 Last Admin: 10/03/24 18:00 Dose: 50 mls/hr Lactated Ringer's (Lactated Ringers) 1,000 mls @ 999 mls/hr IV .Q1H1M ONE Stop: 10/03/24 20:09 Last Admin: 10/03/24 19:17 Dose: 999 mls/hr Dextrose/Lactated Ringer's (D5-Lr) 1,000 mls @ 100 mls/hr IV .Q10H [facility] Stop: 11/03/24 05:44 Last Admin: 10/04/24 06:00 Dose: 100 mls/hr Methylene Blue 50 mg/ Dextrose 60 mls @ 120 mls/hr IV X1 ONE Stop: 10/04/24 08:44 Last Admin: 10/04/24 08:34 Dose: 120 mls/hr Vancomycin/Sodium Chloride (Vancomycin/Ns 1 Gm Ivpb) 200 mls @ 120 mls/hr IV X1 ONE Stop: 10/04/24 11:39 Last Infusion: 10/04/24 12:50 Dose: 0 mls/hr Midodrine (Midodrine 5 Mg Tablet) 10 mg PO TID [facility] Stop: 10/30/24 13:59 Last Admin: 10/03/24 13:19 Dose: 10 mg Pantoprazole Sodium (Pantoprazole Inj 40 Mg Vial) 40 mg IVP QDAY [facility] Stop: 10/30/24 08:59 Last Admin: 10/02/24 08:17 Dose: 40 mg Pharmacy Consult (Vancomycin Pharmacy To Dose 1 Each Each) 1 each IV QDAY PRN PRN Reason: CONSULT Stop: 10/30/24 16:29 Phytonadione (Phytonadione Inj 10 Mg/Ml Amp) 10 mg SC QDAY [facility] Stop: 10/03/24 08:59 Last Admin: 10/02/24 08:18 Dose: 10 mg Potassium Chloride (Potassium Chloride 20 Meq Tabcr) 40 meq PO X1 ONE Stop: 10/02/24 08:01 Last Admin: 10/02/24 11:10 Dose: 40 meq Potassium Chloride (Potassium Chloride 10% 20 Meq/15 Ml Udc) 40 meq GT X1 ONE Stop: 10/03/24 06:31 Last Admin: 10/03/24 06:40 Dose: 40 meq Potassium Chloride (Potassium Chloride 10% 20 Meq/15 Ml Udc) 20 meq GT X1 ONE Stop: 10/03/24 07:31 Last Admin: 10/03/24 08:18 Dose: 20 meq Potassium Chloride (Potassium Chloride 10% 20 Meq/15 Ml Udc) 40 meq NG X1 ONE Stop: 10/03/24 07:13 Last Admin: 10/03/24 07:26 Dose: Not Given Rocuronium [place] (Rocuronium Inj 10 Mg/Ml Vial 10 Ml) 70 mg IVP X1 ONE Stop: 10/02/24 18:16 Last Admin: 10/02/24 18:15 Dose: 70 mg Sodium Bicarbonate (Sodium Bicarb Inj 8.4% Syr 50 Ml Syringe) 50 ml IV X1 ONE Stop: 10/04/24 07:14 Last Admin: 10/04/24 07:36 Dose: 50 ml Sodium Bicarbonate (Sodium Bicarb Inj 8.4% Syr 50 Ml Syringe) 50 ml IV X1 ONE Stop: 10/04/24 07:09 Last Admin: 10/04/24 07:36 Dose: 50 ml Sodium Bicarbonate (Sodium Bicarb Inj 8.4% Syr 50 Ml Syringe) 50 ml IV X1 ONE Stop: 10/04/24 12:01 Last Admin: 10/04/24 11:48 Dose: 50 ml Sodium Bicarbonate (Sodium Bicarb Inj 8.4% Syr 50 Ml Syringe) 50 ml IV X1 ONE Stop: 10/04/24 12:01 Last Admin: 10/04/24 11:48 Dose: 50 ml Sodium Chloride (Sodium Chloride Rt 10% 15 Ml Nebu) 5 ml INH X1 ONE Stop: 10/03/24 10:04 Last Admin: 10/04/24 12:14 Dose: Not Given Succinylcholine Chloride (Succinylcholine Inj 20 Mg/Ml Vial 10 Ml) 100 mg IV X1 ONE Stop: 10/02/24 17:21 Last Admin: 10/02/24 17:46 Dose: 100 mg Assessment & Plan Plan A 44-year-old male patient with past medical history of end-stage liver disease secondary to alcohol use disorder, esophageal varices s/p banding came to the hospital with complaints of altered mental status on 09/30/2024 and consulted for acute renal failure and electrolyte imbalance # Acute renal failure Hepatorenal syndrome in the setting of decompensated liver failure versus prerenal SMILEY versus ATN -Creatinine at the time of admission is 1.2, increased to 1.5 next day and again came back to 1.2 -Patient was upgraded to ICU on 10/02/2024 for acute respiratory failure and acute encephalopathy -CT abdomen done during this visit showed Cirrhosis, liver lobular in contour, Prominent splenomegaly Atrophic left kidney with wall thickening of the left pelvicalyceal system -Since then creatinine is uptrending and as of 10/04/2024, creatinine is 4.2 -Patient is found to be anuric Plan -Recommended to give 1 g/kg albumin to the patient, increase the dose of albumin to 25 g 3 times daily -Continue vasopressors -Will do CRRT for 10 hours with potassium bath of 2K, calcium bath of 2.5, sodium 138, bicarb 40 -Recommended to continue to monitor renal function and electrolytes -Despite CRRT, patient likely to have poor prognosis in the setting of end-stage liver disease with severe acidosis # Severe metabolic acidosis # Lactic acidosis -On 10/04/2024, patient is found to have lactate of 11.8, bicarb 5 -Delta ratio is 0.26 plan -Will continue to do CRRT -Continue vasopressors #Shock, unknown etiology #Likely distributive from end stage liver disease vs sepsis #Acute hypoxic respiratory failure #Moderate ARDS #Pneumonia #End-stage liver disease-alcoholic liver cirrhosis #Hyperbilirubinemia #Ascites #Leukocytosis #Anemia #Coagulopathy #Hypoglycemia #Sepsis secondary to pneumonia #Upper extremity edema -Rest of the medical conditions to be treated as per ICU team Thank you for allowing us to involved in the care of the patient Patient plan of care was discussed with the attending physician, Dr. Corina Leonard, PGY1 Attending Provider Attestation/Addendum Patient seen and examined with resident physician Dr. Lyle. Note reviewed, agree with findings and recommendations. Patient with multiple system organ failure-acute respiratory failure needing ventilator, acute liver failure, acute renal failure with abdominal urinary output, coagulopathy, sepsis, hypotension needing pressors. Decided to proceed with CRRT. Continues dialysis for 10 hours, blood flow 100-200, dialysate flow 100, Citrasate, heparin 500 bolus/100 units/h maintenance, no UF, bicarbonate 39, saline flush 50 mL/h Ordered. Plan of care discussed with ICU and dialysis nurse. Prognosis remains guarded. Last drink was in July. Not a candidate for liver transplant at this point. Family aware. Critical care time spent more than 40 minutes regarding plan of care and disease management. Thank you Vicki for allowing me to participate in the care of Mr. Villegas.
[2024-10-04 18:27] LABS: Carbon Dioxide 12.8 mMol/L (20.0-31.0)
[2024-10-04 18:50] LABS: Base Excess -10 (-3-3); HCO3 15 mEq/L (20-26); Inspired Oxygen, FIO2 55 %; O2 Saturation 98 % (91-98); PCO2 32 mmHg (32.0-48.0); PO2 93 mmHg (83-108); pH, Arterial 7.29 (7.35-7.45)
[2024-10-04 18:51] LABS: Allen Test Not Performed; Puncture Site Arterial Line
[2024-10-04] MEDS: Norepinephrine/NS 16mg/250ml 16 MG/250 ML BAG 107.381 MG IV (20:19)
[2024-10-04 22:34] LABS: Lactate (Lactic Acid) 11.9 mMol/L (0.4-2.0)
[2024-10-04] MEDS: Norepinephrine/NS 16mg/250ml 16 MG/250 ML BAG 112.05 MG IV (22:53)
[2024-10-04 23:03] LABS: Albumin, Serum 2.6 gm/dL (3.5-5.0); Anion Gap 22 (7-16); BUN/Creatinine Ratio 12 Ratio (12-20); Blood Urea Nitrogen 17 mg/dL (9-23); Calcium 7.4 mg/dL (8.3-10.6); Calcium (Corrected) 8.5 mg/dL (8.5-10.1); Carbon Dioxide 17.4 mMol/L (20.0-31.0); Chloride 96 mMol/L (98-107); Creatinine (Component) 1.4 mg/dL (0.6-1.3); Estimated Creatinine Clearance 67.4 mL/min (>60); Glucose 83 mg/dL (74-106); Osmolality,Calculated 270 (275-295); Phosphorous 3.2 mg/dL (2.4-5.1); Potassium 3.3 mMol/L (3.4-5.1); Sodium 135 mMol/L (136-145); eGFR > 60 See Note
[2024-10-04] MEDS: HEPARIN SOD INJ 1000 UNIT/ML VIAL 10 ML 3000 UNIT INDWELLCAT (23:05)
[2024-10-05] VITALS (123 sets, daily range): BP systolic 56–155; BP diastolic 23–80; PULSE 85–119; RESP 25–39; TEMP 36.6–37.3; O2SAT 89–99; BMI 30.1
[2024-10-05] MEDS: HYDROCORTISONE SOD SUCC INJ 100 MG VIAL 50 MG IV ×4 (00:30→18:34)
[2024-10-05] MEDS: VASOPRESSIN IN NS IVPB 20 UNIT/100 ML BAG 9 UNIT IV ×2 (01:05→14:43)
[2024-10-05] MEDS: Norepinephrine/NS 16mg/250ml 16 MG/250 ML BAG 110.494 MG IV (01:07)
[2024-10-05 01:31] LABS: Reflex Lactate? Y
[2024-10-05] MEDS: DEXTROSE 10%-WATER 500 ML 40 ML IV ×2 (03:21→16:15)
[2024-10-05 03:54] LABS: Basophils % (Auto) 0 % (0-2.5); Eosinophils % (Auto) 0 % (0-10); Hematocrit 24.9 % (41.0-53.0); Immature Granulocytes % (Auto) 1 % (0-0); Immature Granulocytes Auto 0.29 Thou/mm3 (0.00-0.00); Lymphocytes # (Auto) 1.6 Thou/mm3 (1.0-4.8); Lymphocytes % (Auto) 8 % (10-50); Mean Corpuscular HGB Conc 32.9 g/dl (31.0-37.0); Mean Corpuscular Hemoglobin 27.8 pg (25.0-35.0); Mean Corpuscular Volume 84 fL (80-100); Monocytes # (Auto) 1.3 Thou/mm3 (0.0-0.8); Monocytes % (Auto) 6 % (0-12); Neutrophils # (Auto) 17.8 Thou/mm3 (1.8-7.7); Neutrophils % (Auto) 85 % (37-80); Nucleated Red Blood Cell # 0.64 Thou/mm3 (0.00-0.00); Nucleated Red Blood Cell % 3 /100 WBC (0); Platelet Count 121 Thou/mm3 (140-440); RDW Standard Deviation 74.3 fL (35.1-43.9); Red Blood Count 2.95 Miln/mm3 (4.50-5.90); White Blood Count 20.9 Thou/mm3 (3.8-10.6)
[2024-10-05 04:11] LABS: Lactate (Lactic Acid) 14.8 mMol/L (0.4-2.0)
[2024-10-05] MEDS: Norepinephrine/NS 16mg/250ml 16 MG/250 ML BAG 101.156 MG IV (04:23)
[2024-10-05] MEDS: HEPARIN SOD INJ 5000 UNIT/ML VIAL SC (05:05)
[2024-10-05] MEDS: LACTULOSE SYRUP 20 GM/30 ML UDC PO ×4 (05:05→22:01)
[2024-10-05] MEDS: PIPER/TAZO 3.375 GM PREMIX 3.375 GM/50 ML BAG IV ×2 (05:05→22:01)
[2024-10-05 05:19] LABS: Alanine Aminotransferase 665 U/L (10-49); Albumin, Serum 2.5 gm/dL (3.5-5.0); Albumin/Globulin Ratio 0.8 (1.2-2.2); Alkaline Phosphatase 261 U/L (46-116); Anion Gap 23 (7-16); Aspartate Amino Transferase 3701 U/L (0-34); BUN/Creatinine Ratio 11 Ratio (12-20); Blood Urea Nitrogen 21 mg/dL (9-23); Calcium 7.3 mg/dL (8.3-10.6); Calcium (Corrected) 8.5 mg/dL (8.5-10.1); Chloride 95 mMol/L (98-107); Creatinine (Component) 1.9 mg/dL (0.6-1.3); Estimated Creatinine Clearance 49.6 mL/min (>60); Globulin 3.3 gm/dL (2.3-3.5); Glucose 78 mg/dL (74-106); Osmolality,Calculated 268 (275-295); Potassium 3.8 mMol/L (3.4-5.1); Sodium 133 mMol/L (136-145); Total Protein 5.8 gm/dL (5.7-8.2); Vancomycin,Random 16.7 mcg/mL; eGFR 44 See Note
[2024-10-05 05:38] LABS: Carbon Dioxide 14.9 mMol/L (20.0-31.0)
[2024-10-05 05:41] LABS: Bilirubin,Total 24.5 mg/dL (0.3-1.2)
[2024-10-05 06:12] LABS: Hemoglobin 8.2 g/dL (13.5-16.0)
[2024-10-05 06:35] LABS: Base Excess -11 (-3-3); HCO3 14 mEq/L (20-26); Inspired Oxygen, FIO2 55 %; O2 Saturation 97 % (91-98); PCO2 30 mmHg (32.0-48.0); PO2 82 mmHg (83-108); pH, Arterial 7.28 (7.35-7.45)
[2024-10-05 06:37] LABS: Allen Test Not Performed; Puncture Site Arterial Line
[2024-10-05 06:39] LABS: Reflex Lactate? Y
[2024-10-05 06:44] LABS: Lactic Acid, 3 HR 14.6 mMol/L (0.4-2.0)
--- NOTE | 2024-10-05 07:08 | XR_ITS ---
Examination: AP chest single view TECHNIQUE: AP portable semiupright chest single view. Examination time: October 05, 2024 at 0633 hours Comparison October 04, 2024 INDICATIONS: Hypoxic respiratory failure, severe pneumonia ARDS on earlier imaging this week FINDINGS: Prominent bilateral lung opacity Endotracheal tube tip 4.5 cm above Naila. Orogastric tube in the stomach, tip is below the level of the film Right internal jugular central line tip right atrium, no pneumothorax Adequate bone density IMPRESSION: Severe bilateral pneumonia/ARDS remains
[2024-10-05] MEDS: Norepinephrine/NS 16mg/250ml 16 MG/250 ML BAG 99.6 MG IV (07:22)
[2024-10-05 07:37] LABS: Basophils % (Auto) 0 % (0-2.5); Eosinophils # (Auto) 3.1 Thou/mm3 (0.0-0.5); Eosinophils % (Auto) 16 % (0-10); Hematocrit 24.9 % (41.0-53.0); Immature Granulocytes % (Auto) 2 % (0-0); Immature Granulocytes Auto 0.29 Thou/mm3 (0.00-0.00); Lymphocytes # (Auto) 1.6 Thou/mm3 (1.0-4.8); Lymphocytes % (Auto) 8 % (10-50); Mean Corpuscular HGB Conc 32.5 g/dl (31.0-37.0); Mean Corpuscular Hemoglobin 27.7 pg (25.0-35.0); Mean Corpuscular Volume 85 fL (80-100); Monocytes # (Auto) 1.4 Thou/mm3 (0.0-0.8); Monocytes % (Auto) 7 % (0-12); Neutrophils % (Auto) 67 % (37-80); Nucleated Red Blood Cell # 0.66 Thou/mm3 (0.00-0.00); Nucleated Red Blood Cell % 3 /100 WBC (0); Platelet Count 119 Thou/mm3 (140-440); RDW Standard Deviation 78.2 fL (35.1-43.9); Red Blood Count 2.92 Miln/mm3 (4.50-5.90); White Blood Count 19.4 Thou/mm3 (3.8-10.6)
[2024-10-05 07:41] LABS: Hemoglobin 8.1 g/dL (13.5-16.0)
[2024-10-05 07:42] LABS: Path Review Blood Smear Sent to Pathologist
[2024-10-05 07:46] LABS: Albumin, Serum 2.5 gm/dL (3.5-5.0); Anion Gap 22 (7-16); BUN/Creatinine Ratio 11 Ratio (12-20); Blood Urea Nitrogen 21 mg/dL (9-23); Calcium 7.4 mg/dL (8.3-10.6); Calcium (Corrected) 8.6 mg/dL (8.5-10.1); Chloride 95 mMol/L (98-107); Creatinine (Component) 1.9 mg/dL (0.6-1.3); Estimated Creatinine Clearance 50.8 mL/min (>60); Glucose 87 mg/dL (74-106); Osmolality,Calculated 264 (275-295); Phosphorous 5.3 mg/dL (2.4-5.1); Potassium 4.8 mMol/L (3.4-5.1); Sodium 131 mMol/L (136-145); eGFR 44 See Note
[2024-10-05 07:47] LABS: Carbon Dioxide 14.5 mMol/L (20.0-31.0)
[2024-10-05 08:10] LABS: D-Dimer > 3820 ng/mL (<600)
[2024-10-05 09:07] LABS: Fibrinogen 108 mg/dL (175-375)
[2024-10-05 09:09] LABS: INR 3.7 (0.9-1.3)
[2024-10-05 09:11] LABS: Partial Thromboplastin Time 126.1 Seconds (22.0-36.0)
[2024-10-05] MEDS: HEPARIN SOD INJ 1000 UNIT/ML VIAL 10 ML 1400 UNIT INDWELLCAT (09:15)
[2024-10-05] MEDS: ALBUMIN HUMAN 25% IVPB 25 GM/100 ML BTL IV (09:16)
[2024-10-05] MEDS: PANTOPRAZOLE INJ 40 MG VIAL IVP ×2 (09:16→22:02)
[2024-10-05] MEDS: VANCOMYCIN/NS 750 MG IVPB 750 MG/150 ML BAG 120 MG IV (10:00)
[2024-10-05] MEDS: Norepinephrine/NS 16mg/250ml 16 MG/250 ML BAG 105.825 MG IV (10:13)
[2024-10-05] MEDS: rifaximin 550 MG TABLET PO ×2 (12:12→22:03)
--- NOTE | 2024-10-05 12:12 | ESPR_ITS ---
<Statement entered by Wilfred Wyatt MD - 10/06/24 09:03> TOTAL CC TIME: 90 MIN I saw and evaluated the patient. I reviewed the resident?s note and agree with findings and plan as documented in the resident?s note. Upon my evaluation, this patient had a high probability of imminent or life- threatening deterioration due to multisystem organ failure and septic shock which required my direct attention, intervention, and personal management. This time is exclusive of time spent on procedures, which are documented separately if performed. off sedation and not arousable - minimal response keep off sedation multifactorial due to septic shock, hepatic encephalopathy, prolonged effects of sedation shock complicated by cirrhosis/renal failure vasodilated physiology and septic. cultures remains negative - pneumonia confirmed based off classic pneumonic infiltrates clearly ID'd at base of lungs on ct abd/pelv cont's to require CVC for pressors and CRRT. NICOM SVI response to straight leg raise inconsistent w/ fluid responsive state LA clearance improved on CRRT - cont as tolerated - able to remove fluids with acute ischemic hepatitis on chronic severe cirrhosis - prognosis is quite poor. GOC discussion completed between myself/residents and many family members, consisting of sisters, nephews, nieces, brothers. Patient has no children of his own. Family appreciative of current medical care - requested change in code status to DNR. <Statement entered by Royal Elliott MD - 10/05/24 18:07> patient was examined bedside this morning, he continues to be in levophed and vasso. he is been off sedation since yesterday morning, with minimum urine output less than 10 cc and GCS of 3T . He is getting CRRT today, lactic acid trending up .Had a goals of care discussion with the family regarding prognosis and code status. he was not fluid responsive with Cheetah. later family decided to change him to DNR . His prognosis is gaurded. I discussed with and supervised my co-resident involved in the care of this patient. I agree with the assessment and plan as documented above. Royal Elliott,PGY-3 Disclaimer: Despite multiple revisions, due to the dictation software being used, the document below may not be free of grammatical errors including phonetic/typographic errors. However, this does not deter from our commitment to providing health care in the patient's best interest in mind. Documentation for date of: 10/05/24 Subjective Subjective Interval history: 10/04/2024- Patient seen and examined at bedside. Overnight, continue to be in high pressors demand. Levophed at 0.7 with vaso at 0.03, continues to be on fentanyl and propofol. IV hydrocortisone added to attempt to reduce pressor requirements. Patient received another liter of IV fluids overnight as well as albumin. Lactic acid continues to be elevated, currently at 13.6. Patient has continued to be anuric, with only able to 10 cc urine output overnight. His CO2 in the 90s. Other labs evaluated, creatinine elevated to 4.1, potassium of 5.6, elevated transaminases within the values of ischemic hepatitis and uptrending WBCs. Nephrology consulted for emergent dialysis, consent obtained from family for CRRT. Bicarb pushes also given Will continue renal panel as well as ABGs every 6 hours Additionally, will do a diagnostic paracentesis to exclude SBP as additional source of sepsis. Family has been contacted and updated, patient remains to be full code, will have a goals of care discussion once all concerned parties are available 10/05/2024- Patient seen and examined at bedside. Overnight, continued to have very minimal urine output, 10 cc only, lactates continue to be elevated up to 14. Levophed requirements initially uptrending up to 1.44. All sedation turned off in the early hours of yesterday. At bedside today, GCS is 3T. Pupil reflex very minimal and sluggish, no corneal or oculocephalic reflex. pH this morning 7.28 with CO2 of 30 and bicarb of 14. Lactic acid at 14.6, had CRRT yesterday for about 12 hours. Per nephrology, will have another session today. Other labs reviewed, significant elevated transaminases and bilirubin, downtrending leukocytosis, stable hemoglobin at 8.3. Blood cultures returned for micrococcus in 1 bottle, likely to be contamination. Cheetah put on evaluate for fluid responsiveness, patient is not fluid responsive. Will continue to down titrate pressors as tolerated. Goals of care discussion had with family today, will follow-up on decision as regarding CODE STATUS. Exam Vital Signs Temp Pulse Resp BP Pulse Ox O2 Del Method O2 Flow Rate 98.8 F 91 35 H 118/45 L 96 Mechanical Ventilation 30 10/05/24 11:00 10/05/24 12:00 10/05/24 09:00 10/05/24 12:00 10/05/24 11:15 10/05/24 11:00 10/02/24 13:05 FiO2 55 10/05/24 12:00 Narrative Exam GENERAL: GCS-3T, no sedation NEURO: GCS-3T, minimal and sluggish pupillary reflexes, no corneal or oculocephalic HEENT: Dry mucosa. Icteric sclera CARDIO: No chest pain on palpation. Tachycardic, regular rhythm, no murmurs PULM: Crackles and rhonchi bilaterally. GI: Abdomen firm, distended, positive fluid wave. 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 SKIN/MSK/EXT: Icteric skin. Bilateral trace pitting edema in lower extremities. Upper extremities edema R>L Objective Labs 10/05/24 07:12 10/05/24 15:39 Labs: Laboratory Results - last 24 hr 10/04/24 10/04/24 10/04/24 14:00 16:02 16:05 WBC RBC Hgb Hct MCV MCH MCHC RDW Std Deviation Plt Count Neut % (Auto) Lymph % (Auto) Jerome % (Auto) Eos % (Auto) Baso % (Auto) Neut # (Auto) Lymph # (Auto) Jerome # (Auto) Eos # (Auto) Baso # (Auto) Immature Gran # (Auto) Absolute Nucleated RBC Immature Gran % Nucleated RBC % Smear Path Review PT INR APTT Fibrinogen D-Dimer Puncture Site Arterial Line ABG pH 7.22 L D ABG pCO2 32 ABG pO2 58 L* ABG HCO3 13 L ABG O2 Saturation 88 L ABG Base Excess -14 L FiO2 40 Sodium 136 Potassium 4.0 D Chloride 99 Carbon Dioxide 12.8 L* Anion Gap 24 H BUN 25 H Creatinine 2.1 H D Estim Creat Clear Calc 44.9 L eGFR 39 L BUN/Creatinine Ratio 12 Glucose 104 Calculated Osmolality 276 Lactic Acid Calcium 7.4 L Corrected Calcium 8.4 L Phosphorus 5.1 Total Bilirubin AST ALT Alkaline Phosphatase Total Protein Albumin 2.7 L Globulin Albumin/Globulin Ratio Peritoneal Color Yellow Peritoneal Appearance Clear Peritoneal WBC 85 Peritoneal RBC 1000 Periton Polynucl WBCs 45 Periton Mononucl WBCs 55 Peritoneal Tot Protein < 2 Peritoneal LDH 69 Peritoneal Glucose 80 Peritoneal Amylase 25 Random Vancomycin 10/04/24 10/04/24 10/05/24 18:33 22:16 03:23 WBC 20.9 H D RBC 2.95 L Hgb 8.2 L Hct 24.9 L MCV 84 MCH 27.8 MCHC 32.9 RDW Std Deviation 74.3 H Plt Count 121 L D Neut % (Auto) 85 H Lymph % (Auto) 8 L Jerome % (Auto) 6 Eos % (Auto) 0 Baso % (Auto) 0 Neut # (Auto) 17.8 H Lymph # (Auto) 1.6 Jerome # (Auto) 1.3 H Eos # (Auto) 0.0 Baso # (Auto) 0.0 Immature Gran # (Auto) 0.29 H Absolute Nucleated RBC 0.64 H Immature Gran % 1 H Nucleated RBC % 3 H Smear Path Review Sent to Pathologist PT INR APTT Fibrinogen D-Dimer Puncture Site Arterial Line ABG pH 7.29 L ABG pCO2 32 ABG pO2 93 D ABG HCO3 15 L ABG O2 Saturation 98 ABG Base Excess -10 L FiO2 55 Sodium 135 L 133 L Potassium 3.3 L D 3.8 D Chloride 96 L 95 L Carbon Dioxide 17.4 L 14.9 L* Anion Gap 22 H 23 H BUN 17 21 Creatinine 1.4 H D 1.9 H D Estim Creat Clear Calc 67.4 49.6 L eGFR > 60 44 L BUN/Creatinine Ratio 12 11 L Glucose 83 78 Calculated Osmolality 270 L 268 L Lactic Acid 11.9 H* 14.8 H* Calcium 7.4 L 7.3 L Corrected Calcium 8.5 8.5 Phosphorus 3.2 Total Bilirubin 24.5 H* D AST 3701 H* ALT 665 H* Alkaline Phosphatase 261 H D Total Protein 5.8 Albumin 2.6 L 2.5 L Globulin 3.3 Albumin/Globulin Ratio 0.8 L Peritoneal Color Peritoneal Appearance Peritoneal WBC Peritoneal RBC Periton Polynucl WBCs Periton Mononucl WBCs Peritoneal Tot Protein Peritoneal LDH Peritoneal Glucose Peritoneal Amylase Random Vancomycin 16.7 10/05/24 10/05/24 06:27 07:12 WBC 19.4 H RBC 2.92 L Hgb 8.1 L Hct 24.9 L MCV 85 MCH 27.7 MCHC 32.5 RDW Std Deviation 78.2 H Plt Count 119 L Neut % (Auto) 67 Lymph % (Auto) 8 L Jerome % (Auto) 7 Eos % (Auto) 16 H Baso % (Auto) 0 Neut # (Auto) 13.0 H Lymph # (Auto) 1.6 Jerome # (Auto) 1.4 H Eos # (Auto) 3.1 H Baso # (Auto) 0.0 Immature Gran # (Auto) 0.29 H Absolute Nucleated RBC 0.66 H Immature Gran % 2 H Nucleated RBC % 3 H Smear Path Review PT 37.0 H* D INR 3.7 H APTT 126.1 H* D Fibrinogen 108 L D-Dimer > 3820 H Puncture Site Arterial Line ABG pH 7.28 L ABG pCO2 30 L ABG pO2 82 L ABG HCO3 14 L ABG O2 Saturation 97 ABG Base Excess -11 L FiO2 55 Sodium 131 L Potassium 4.8 D Chloride 95 L Carbon Dioxide 14.5 L* Anion Gap 22 H BUN 21 Creatinine 1.9 H Estim Creat Clear Calc 50.8 L eGFR 44 L BUN/Creatinine Ratio 11 L Glucose 87 Calculated Osmolality 264 L Lactic Acid 14.6 H* Calcium 7.4 L Corrected Calcium 8.6 Phosphorus 5.3 H Total Bilirubin AST ALT Alkaline Phosphatase Total Protein Albumin 2.5 L Globulin Albumin/Globulin Ratio Peritoneal Color Peritoneal Appearance Peritoneal WBC Peritoneal RBC Periton Polynucl WBCs Periton Mononucl WBCs Peritoneal Tot Protein Peritoneal LDH Peritoneal Glucose Peritoneal Amylase Random Vancomycin ABG Interpretation ABG results: 09/29/24 10/02/24 10/02/24 19:27 11:59 17:09 ABG pH 7.41 7.39 7.29 L D ABG pCO2 24 L 24 L 32 ABG pO2 58 L* 108 D 86 D ABG HCO3 15 L 14 L 15 L ABG O2 Saturation 92 99 H 97 ABG Base Excess -8 L -10 L -10 L VBG pH VBG pCO2 VBG pO2 VBG Base Excess 10/02/24 10/02/24 10/02/24 19:42 21:33 22:35 ABG pH 7.12 L* D 7.21 L 7.25 L ABG pCO2 51 H D 41 D 33 ABG pO2 334 H D 54 L* D 233 H D ABG HCO3 17 L 16 L 14 L ABG O2 Saturation 101 H 84 L 101 H ABG Base Excess -12 L -11 L -12 L VBG pH VBG pCO2 VBG pO2 VBG Base Excess 10/03/24 10/03/24 10/03/24 06:49 09:59 11:35 ABG pH 7.17 L* 7.10 L* 7.10 L* ABG pCO2 37 36 33 ABG pO2 85 D 83 92 ABG HCO3 14 L 11 L 10 L ABG O2 Saturation 96 95 97 ABG Base Excess -14 L -17 L -18 L VBG pH VBG pCO2 VBG pO2 VBG Base Excess 10/04/24 10/04/24 10/04/24 06:00 06:44 11:26 ABG pH 6.87 L* D 6.99 L* D ABG pCO2 29 L 34 ABG pO2 100 62 L D ABG HCO3 5 L* 8 L* ABG O2 Saturation 96 87 L ABG Base Excess -27 L -22 L VBG pH 6.88 L VBG pCO2 29 L VBG pO2 95 H VBG Base Excess -26 L 10/04/24 10/04/24 10/05/24 16:02 18:33 06:27 ABG pH 7.22 L D 7.29 L 7.28 L ABG pCO2 32 32 30 L ABG pO2 58 L* 93 D 82 L ABG HCO3 13 L 15 L 14 L ABG O2 Saturation 88 L 98 97 ABG Base Excess -14 L -10 L -11 L VBG pH VBG pCO2 VBG pO2 VBG Base Excess Quality Measures Quality Measures sepsis Current suspected stage: septic shock (LA >4 and/or hypotension) Sepsis reassessment completed at (date): 10/05/24 Sepsis reassessment completed at (time): 09:00 Possible source: GI tract/intra-abdominal Blood cultures ordered: yes Antibiotic ordered: Yes Assessment & Plan Assessment Current Active Medications: Generic Name Dose Route Start Last Admin Trade Name Freq PRN Reason Stop Dose Admin Acetaminophen 650 mg 09/30/24 01:41 10/01/24 21:46 Acetaminophen 325 Mg Tablet PO 10/30/24 01:40 650 mg Q8H PRN Administration Fever >101.5 Citric Acid/Sodium Citrate 30 ml 09/30/24 11:30 10/03/24 12:54 Citric Acid/Sodium Citr 15 Ml Udc (Bicitra) PO 10/30/24 11:29 Not Given BID CATHY Furosemide 20 mg 10/01/24 09:00 10/03/24 12:54 Furosemide Inj 10 Mg/Ml Vial 2 Ml IVP 10/31/24 08:59 Not Given QDAY CATHY Heparin Sodium (Porcine) 5,000 unit 10/02/24 22:00 10/05/24 05:05 Heparin Sod Inj 5000 Unit/Ml Vial SC 10/16/24 21:59 5,000 unit Q8HR CATHY Administration Hydrocortisone Sodium Succinate 50 mg 10/03/24 18:00 10/05/24 05:05 Hydrocortisone Sod Succ Inj 100 Mg Vial IV 11/02/24 17:59 50 mg Q6HR CATHY Administration Piperacillin/Tazobactam/Dextrose 3.375 gm in 50 mls @ 12.5 mls/hr 09/30/24 14:00 10/05/24 05:05 Zosyn IV 10/07/24 13:59 12.5 mls/hr Q8HR CATHY Administration Protocol Fentanyl Citrate 2,500 mcg in 250 mls @ 2.5 mls/hr 10/02/24 18:31 10/04/24 09:00 Sublimaze Inj 2,500 Mcg/250 Ml Bag IV 10/07/24 17:22 0 mcg/hr .Q24H PRN 0 mls/hr PER PROTOCOL Titration Protocol 25 MCG/HR Cisatracurium Besylate 200 mg/ 520 mls @ 11.817 mls/hr 10/02/24 20:14 10/03/24 15:45 Sodium Chloride IV 11/01/24 20:13 0 mcg/kg/min .Q24H PRN 0 mls/hr Per Protocol Titration Protocol 1 MCG/KG/MIN Propofol 1,000 mg in 100 mls @ 2.256 mls/hr 10/03/24 08:09 10/04/24 09:15 Diprivan Ivpb IV 11/01/24 18:04 0 mcg/kg/min .Q24H PRN 0 mls/hr PER PROTOCOL Titration Protocol 5 MCG/KG/MIN Vasopressin/Sodium Chloride 20 unit in 100 mls @ 9 mls/hr 10/03/24 07:42 10/05/24 01:05 Vasostrict/Ns Ivpb IV 11/02/24 07:41 0.03 unit/min .Q11H7M PRN 9 mls/hr PER PROTOCOL Administration Protocol 0.03 UNIT/MIN Albumin Human 25 gm in 100 mls @ 100 mls/hr 10/04/24 03:31 10/05/24 09:16 Albuminar-25 Ivpb IV 10/07/24 03:30 100 mls/hr QDAY CATHY Administration Epinephrine/Sodium Chloride 4 mg in 250 mls @ 15.563 mls/hr 10/04/24 11:40 Adrenalin/Ns 4 Mg Ivpb IV 11/03/24 11:39 .Q16H4M PRN per protocol Protocol 0.05 MCG/KG/MIN Norepinephrine Bitartrate 16 mg in 250 mls @ 3.891 mls/hr 10/04/24 11:43 10/05/24 11:15 Levophed In Ns 16mg/250ml IV 11/01/24 17:21 1.24 mcg/kg/min .Q24H PRN 96.488 mls/hr PER PROTOCOL Titration Protocol 0.05 MCG/KG/MIN Dextrose 500 mls @ 40 mls/hr 10/04/24 14:30 10/05/24 03:21 D10w IV 11/03/24 14:29 40 mls/hr .[id number] CATHY Administration Vancomycin/Sodium Chloride 750 mg in 150 mls @ 120 mls/hr 10/05/24 10:00 Vancomycin/Ns 750 Mg Ivpb IV 10/12/24 09:59 QDAY@1000 CATHY Protocol Lactulose 20 gm 09/30/24 02:45 10/05/24 05:05 Lactulose Syrup 20 Gm/30 Ml Udc PO 10/30/24 02:44 20 gm QID CATHY Administration Protocol Ondansetron HCl 4 mg 09/30/24 01:50 10/01/24 18:18 Ondansetron Inj 2 Mg/Ml Inj 2 Ml IV 10/30/24 01:49 4 mg Q6H PRN Administration NAUSEA OR VOMITING Protocol Pantoprazole Sodium 40 mg 10/02/24 20:00 10/05/24 09:16 Pantoprazole Inj 40 Mg Vial IVP 11/01/24 19:59 40 mg BID CATHY Administration Pharmacy Consult 1 each 09/30/24 02:31 Pharmacy Renal Dose Adjustment 1 Ea XX 10/30/24 02:30 PRN PRN CONSULT Pharmacy Consult 1 each 10/04/24 09:45 Vancomycin Pharmacy To Dose 1 Each Each IV 11/03/24 09:44 QDAY PRN CONSULT Rifaximin 550 mg 09/30/24 02:45 10/04/24 22:07 Rifaximin 550 Mg Tablet PO 10/07/24 02:44 550 mg BID FORMERLY [facility], [facility]–1983 Administration Plan Summary: The patient is a 44-year-old male with a past medical history of end- stage liver disease, alcoholic liver cirrhosis with esophageal varices status post banding who presented to the ED on 09/30/2024, brought in by sister due to altered mental status that was noticed about a day prior to presentation. Admitted to the ICU for intubation and airway support. Neuro Acute hepatic encephalopathy-resolved Sedation free for more than 24 hours Cardiovascular # Septic shock Patient does have pneumonia, community vs acquired based on recent discharge. Started on broad spectrum antibiotics. Overnight, had a temperature of 100.5. Additionally, blood pressure was soft, he received 1 L of fluids and was still hypotensive. Pressors-Levophed and vasopressin which started. Note that per chart review, lactic acid has been chronically elevated in past admissions. More significant elevation this time indicate an additional etiology Lactic acid this morning at 5.3, repeat at 7.0 Currently on Levophed and Vasopresin IV Hydrcortisone added 10/05/2024-patient continues to be in high demand of pressors, Levophed currently at 1.28 and vasopressin at 0.03, still on IV hydrocortisone 20 mg every 6 hours. Hemodynamic parameters evaluated with cheetah today, patient is not fluid responsive. Plan: -Continue Broad spectrum antibiotics -Continue pressor support, titrating for MAP >60 or SBP>90 -IV hydrocortisone Respiratory #Acute hypoxic respiratory failure #Moderate ARDS #Pneumonia The patient presented with chills and productive cough. ED, meds SIRS criteria with tachycardia and elevated WBCs. Chest x-ray was positive for lobar infiltrate. At the time, pH six 7.41 with pCO2 of 24 and bicarb of 15. Labs significant for leukocytosis and lactic acidosis. Patient was started on IV Zosyn for pneumonia, likely hospital-acquired based on recent discharge from hospital. MRSA nares negative. The patient developed worsening respiratory distress with tachypnea and increased work of breathing. Was placed on BiPAP and continued to be in respiratory distress. He was upgraded to the ICU for AHRF and consequent intubation. 10/03/2024- At bedside today, patient is sedated and paralyzed on propofol, fentanyl and Nimbex. ABG ths morning- pH-7.17, CO2-36, HCO3- 13.3. Vent settings adjusted, increased TV , RR already at 34 10/04/2024- Permissive hypercapnia allowed for ARDS. pH this morning showed- 6.87, CO2- 29, HCO3- 5. While still attempting to maintaining lung protective strategies, adjusting the tidal volume and RR. 10/05/2024-intubated and on MV. Tidal volumes of 450 with respiratory rate in the 30s and PEEP of 10 to compensate for metabolic acidosis. pH this morning 7.28, CO2 37 bicarb 14 Plan: -Lung protective strategies- Ventilator settings for ARDS with low tidal volume (6cc/kg), plateau pressure <30 permissive hypercapnia if tolerable, otherwise, compensate for metabolic acidosis. -GPC was both returned positive for micrococcus, likely contamination. New blood cultures negative. -Continue IV Zosyn and vancomycin GI #End-stage liver disease #Hyperbilirubinemia #Ascites #History of esophageal varices s/p banding On admission his hemoglobin stable at 8.7. Coagulation panel showed prolonged PTT of 21.4, INR of 2.1, PTT 49.7, however there was no signs of active bleeding. Total bilirubin 25.1, magnesium 1.5, total bilirubin of 25.1, AST 68, ALT 46 with a ratio of 2:1 which possibly indicate exogenous hepatic consult such as alcohol or drugs. Ammonia level of 46, Pro-Adin 1.86. Patient has history of recurrent hepatic encephalopathy despite compliance to medications. Patient was sent to ultrasound-guided paracentesis, however there is not enough ascitic fluid for drainage. MELD score-29, 19.6 %/month mortality, child Hale class C 10/04/2024- Diagnostic paracentesis done, follow up culture, stain and cytology Plan: -Continue lactulose per OG tube, 20 3 times daily -Continue rifaximin -Continue to monitor H&H for signs of GI bleed -Follow up culture, stain and cytology of peritoneal fluid analysis Renal #Acute kidney injury-resolved On admission, the patient had a creatinine of 1.2. Creatinine about a week prior was 0.8. On date of admission, increased to 1.5. Today, creatinine still at 1.2 10/03/2024-creatinine this morning elevated at 2.3, likely as a result of shock. Will give IV fluids if patient is fluid responsive and repeat renal panel. Urine output 160 cc overnight. 10/04/2024- Creatinine at 4.1 today, urine output [id number] only overnight. Patient continues to be in acidosis. Nephrology consulted, hemodialysis/CRRT initiated. 10/06/2024: Post CRRT yesterday, creatinine 1.9. Still anuric with 10 cc overnight. Another session of CRRT to be had today. Continue strict urine output per nephrology every 6 hours. Plan: -Avoid nephrotoxic medications -Renally dose medications -Repeat panel every 6hrs # Metabolic acidosis # Anion gap metabolic acidosis Anion gap of 11 with bicarb of 15 Likely due to increased bowel movements from lactulose administration 10/03/2024: Initial pH this morning significant for acidosis with bicarb of 13.3. Lactic acid of 5.3. Normal BHB Delta delta gap-0.85. Will obtain urine lytes evaluate urine anion gap and for etiology of NAGMA. 10/04/2024- Patient still has AGMA and NAGMA today. Bicarb this morning at 5, received 2 amps of bicarb. Patient has only made about 20ccs of urine in total. 10/05/2024: Lactic acid today at 14.6, bicarb of 14. Delta delta gap and 1.45, pure AGMA Plan: -Continue to monitor end-tidal CO2 and ABG in AM. Heme #Leukocytosis #Anemia #Coagulopathy In the setting of end-stage liver disease with esophageal varices status post banding. Patient also found to have sepsis. 10/03/2024-leukocytosis with downtrending WBC, Anemia with hemoglobin of 8, stable for patient. 10/04/2024- Uptrending WBC today. Anemia but stable hemoglobin. Elevated PT, PTT and low fibrinogen 10/05/2024-significant elevated PT, INR and APTT with fibrinogen of 108. Will continue to monitor coagulation profile and and give cryo/FFP as required. Endo #Hypoglycemia Blood glucose this morning is 66, repeat at 64. Patient started on D10 drip at 30 cc/h. Continue blood glucose checks every 4 hours. 10/04/2024- Blood glucose overight was low on D10 at 50cc/hr, received DS-LR. Blood glcose this morning at 93. Will continue glucose checks Q4h and start on D10 drip if hypoglycemic. 10/05/2024: Blood glucose this morning at 78, patient continues to be on D10 drip. Plan: -Bedside glucose check every 4hrs ID #Sepsis secondary to pneumonia On IV Zosyn and vancomycin, see resp above 10/04/2024- Vancomycin trough elevated on 10/02/2024. Pharmacy dosing, medication was held. 10/05/2024-continue IV Zosyn and vancomycin MSK #Upper extremity edema Bilateral upper extremity edema, R>L. Doppler US done yesterday was negative for DVT but was positive for thrombus in the superficial cephalic vein Health maintenance: Dispo: ICU for acute hypoxic respiratory failure with ARDS Diet: N.p.o. GI: Pantoprazole 40 mg twice daily DVT: SC heparin Lines: Peripheral, right IJ, right HD Cath Code: Full Case was discussed with Dr Elliott PGY-3 and attending physician, Dr Yoselin Olmedo MD PGY-1 Disclaimer: This note was dictated by speech recognition. Minor errors in patternmaker pressure cast may be present due to voice recognition software.
[2024-10-05] MEDS: Norepinephrine/NS 16mg/250ml 16 MG/250 ML BAG 93.375 MG IV ×2 (12:34→18:33)
--- NOTE | 2024-10-05 13:01 | EVENTNT_ITS ---
<Statement entered by Wilfred Wyatt MD - 10/06/24 09:45> I saw and evaluated the patient. I reviewed the resident?s note and agree with findings and plan as documented in the resident?s note. see attending PN Documentation for date of: 10/05/24 Event Note Event Note: Goals of care discussion had with multiple members of family today led by supervisor commercial fish hatchery Dr. Wyatt Family inquired about the prognosis and as to whether or not patient will r ecover enough to receive a liver/kidney transplant. Medical team extensively explained to family about the declining and deterioration of patient's condition including escalating need for Persistent acidotic conditions and acute renal failure. Patient's family changed CODE STATUS to DNR. Case was discussed with attending physician, Dr Yoselin Olmedo MD PGY-1 Disclaimer: This note was dictated by speech recognition. Minor errors in chinchilla farmer may be present due to voice recognition software.
--- NOTE | 2024-10-05 13:01 | PD.RESEVENT ---
Documentation for date of: 10/05/24 Event Note Event Note: Goals of care discussion had with multiple members of family today led by care administrative tech Dr. Wyatt Family inquired about the prognosis and as to whether or not patient will recover enough to receive a liver/kidney transplant. Medical team extensively explained to family about the declining and deterioration of patient's condition including escalating need for Persistent acidotic conditions and acute renal failure. Patient's family changed CODE STATUS to DNR. Case was discussed with attending physician, Dr Yoselin Olmedo MD PGY-1 Disclaimer: This note was dictated by speech recognition. Minor errors in application developer may be present due to voice recognition software.
--- NOTE | 2024-10-05 13:21 | ESPR_ITS ---
Documentation for date of: 10/05/24 Subjective Subjective Interval history: The largestA 44-year-old male patient with past medical history of end-stage liver disease secondary to alcohol use disorder, esophageal varices s/p banding came to the hospital with complaints of altered mental status on 09/30/2024. Compliant with all his medications and is using lactulose. Last EGD was done in September 2024 that showed grade 1 esophageal varices, ulcers. Patient was admitted to the hospital for acute metabolic encephalopathy, likely due to hepatic encephalopathy from decompensated liver disease. Initially patient was admitted to floors and patient was found to have acute renal failure initially which resolved eventually but on 10/02/2024 patient was upgraded to the ICU as patient is tachypneic, tachycardic and was unable to tolerate BiPAP and intubated in ICU for acute respiratory failure. Nephrology was consulted in view of acute renal failure Labs as of 10/04/2024 showed WBC 26.7, Hb 8.4, platelets 209, sodium 134, potassium 5.6, bicarb <10, anion gap 17, BUN 43, creatinine 4.1, lactate 11.8, total bilirubin 22.7, AST 1391, ALT 232, albumin 2.7 At the time of examination, patient was intubated and sedated Patient was getting triflow catheter for CRRT On physical examination, patient appears icteric with swollen bilateral upper extremities and easy bruisability Will continue CRRT for 10 hours in view of electrolyte imbalance, severe metabolic acidosis, lactic acidosis 10/05/2024 Patient is seen and examined with his family at bedside in the ICU Vitals are stable with vasopressors physical examination remains unchanged Labs chest WBC 19.4, sodium 131, potassium 4.8, chloride 95, bicarb 14.5, BUN 21, creatinine 1.9, lactate 14.6 Patient is still anuric Will do HD today But the patient prognosis still remains poor. Exam Vital Signs Temp Pulse Resp BP Pulse Ox O2 Del Method O2 Flow Rate 98.6 F 89 35 H 102/46 L 92 L Mechanical Ventilation 30 10/05/24 12:00 10/05/24 13:16 10/05/24 09:00 10/05/24 13:16 10/05/24 13:16 10/05/24 11:00 10/02/24 13:05 FiO2 55 10/05/24 12:00 Narrative Exam General: Comatose and intubated-in ICU. On CRRT. HEENT: Normocephalic, atraumatic, mucous membranes moist. icteric Heart: Regular rate and rhythm, no murmurs. Lungs: Clear to auscultation with no wheezing or crackles. Abdomen: Soft, severely distended, nontender, positive bowel sounds. ?No guarding or rebound tenderness. Neurologic: Sedated, cannot assess neurological function Extremities: No edema in the lower extremities and edematous bilateral upper extremities Skin: Easy bruisability noted at the site of IV access Objective Labs 10/06/24 07:30 10/06/24 03:25 Labs: Laboratory Results - last 24 hr 10/04/24 10/04/24 10/04/24 14:00 16:02 16:05 WBC RBC Hgb Hct MCV MCH MCHC RDW Std Deviation Plt Count Neut % (Auto) Lymph % (Auto) [place] % (Auto) Eos % (Auto) Baso % (Auto) Neut # (Auto) Lymph # (Auto) [place] # (Auto) Eos # (Auto) Baso # (Auto) Immature Gran # (Auto) Absolute Nucleated RBC Immature Gran % Nucleated RBC % Smear Path Review PT INR APTT Fibrinogen D-Dimer Puncture Site Arterial Line ABG pH 7.22 L D ABG pCO2 32 ABG pO2 58 L* ABG HCO3 13 L ABG O2 Saturation 88 L ABG Base Excess -14 L FiO2 40 Sodium 136 Potassium 4.0 D Chloride 99 Carbon Dioxide 12.8 L* Anion Gap 24 H BUN 25 H Creatinine 2.1 H D Estim Creat Clear Calc 44.9 L eGFR 39 L BUN/Creatinine Ratio 12 Glucose 104 Calculated Osmolality 276 Lactic Acid Calcium 7.4 L Corrected Calcium 8.4 L Phosphorus 5.1 Total Bilirubin AST ALT Alkaline Phosphatase Total Protein Albumin 2.7 L Globulin Albumin/Globulin Ratio Peritoneal Color Yellow Peritoneal Appearance Clear Peritoneal WBC 85 Peritoneal RBC 1000 Periton Polynucl WBCs 45 Periton Mononucl WBCs 55 Peritoneal Tot Protein < 2 Peritoneal LDH 69 Peritoneal Glucose 80 Peritoneal Amylase 25 Random Vancomycin 10/04/24 10/04/24 10/05/24 18:33 22:16 03:23 WBC 20.9 H D RBC 2.95 L Hgb 8.2 L Hct 24.9 L MCV 84 MCH 27.8 MCHC 32.9 RDW Std Deviation 74.3 H Plt Count 121 L D Neut % (Auto) 85 H Lymph % (Auto) 8 L [place]ois % (Auto) 6 Eos % (Auto) 0 Baso % (Auto) 0 Neut # (Auto) 17.8 H Lymph # (Auto) 1.6 [place] # (Auto) 1.3 H Eos # (Auto) 0.0 Baso # (Auto) 0.0 Immature Gran # (Auto) 0.29 H Absolute Nucleated RBC 0.64 H Immature Gran % 1 H Nucleated RBC % 3 H Smear Path Review Sent to Pathologist PT INR APTT Fibrinogen D-Dimer Puncture Site Arterial Line ABG pH 7.29 L ABG pCO2 32 ABG pO2 93 D ABG HCO3 15 L ABG O2 Saturation 98 ABG Base Excess -10 L FiO2 55 Sodium 135 L 133 L Potassium 3.3 L D 3.8 D Chloride 96 L 95 L Carbon Dioxide 17.4 L 14.9 L* Anion Gap 22 H 23 H BUN 17 21 Creatinine 1.4 H D 1.9 H D Estim Creat Clear Calc 67.4 49.6 L eGFR > 60 44 L BUN/Creatinine Ratio 12 11 L Glucose 83 78 Calculated Osmolality 270 L 268 L Lactic Acid 11.9 H* 14.8 H* Calcium 7.4 L 7.3 L Corrected Calcium 8.5 8.5 Phosphorus 3.2 Total Bilirubin 24.5 H* D AST 3701 H* ALT 665 H* Alkaline Phosphatase 261 H D Total Protein 5.8 Albumin 2.6 L 2.5 L Globulin 3.3 Albumin/Globulin Ratio 0.8 L Peritoneal Color Peritoneal Appearance Peritoneal WBC Peritoneal RBC Periton Polynucl WBCs Periton Mononucl WBCs Peritoneal Tot Protein Peritoneal LDH Peritoneal Glucose Peritoneal Amylase Random Vancomycin 16.7 10/05/24 10/05/24 06:27 07:12 WBC 19.4 H RBC 2.92 L Hgb 8.1 L Hct 24.9 L MCV 85 MCH 27.7 MCHC 32.5 RDW Std Deviation 78.2 H Plt Count 119 L Neut % (Auto) 67 Lymph % (Auto) 8 L [place]ois % (Auto) 7 Eos % (Auto) 16 H Baso % (Auto) 0 Neut # (Auto) 13.0 H Lymph # (Auto) 1.6 [place] # (Auto) 1.4 H Eos # (Auto) 3.1 H Baso # (Auto) 0.0 Immature Gran # (Auto) 0.29 H Absolute Nucleated RBC 0.66 H Immature Gran % 2 H Nucleated RBC % 3 H Smear Path Review PT 37.0 H* D INR 3.7 H APTT 126.1 H* D Fibrinogen 108 L D-Dimer > 3820 H Puncture Site Arterial Line ABG pH 7.28 L ABG pCO2 30 L ABG pO2 82 L ABG HCO3 14 L ABG O2 Saturation 97 ABG Base Excess -11 L FiO2 55 Sodium 131 L Potassium 4.8 D Chloride 95 L Carbon Dioxide 14.5 L* Anion Gap 22 H BUN 21 Creatinine 1.9 H Estim Creat Clear Calc 50.8 L eGFR 44 L BUN/Creatinine Ratio 11 L Glucose 87 Calculated Osmolality 264 L Lactic Acid 14.6 H* Calcium 7.4 L Corrected Calcium 8.6 Phosphorus 5.3 H Total Bilirubin AST ALT Alkaline Phosphatase Total Protein Albumin 2.5 L Globulin Albumin/Globulin Ratio Peritoneal Color Peritoneal Appearance Peritoneal WBC Peritoneal RBC Periton Polynucl WBCs Periton Mononucl WBCs Peritoneal Tot Protein Peritoneal LDH Peritoneal Glucose Peritoneal Amylase Random Vancomycin ABG Interpretation ABG results: 09/29/24 10/02/24 10/02/24 19:27 11:59 17:09 ABG pH 7.41 7.39 7.29 L D ABG pCO2 24 L 24 L 32 ABG pO2 58 L* 108 D 86 D ABG HCO3 15 L 14 L 15 L ABG O2 Saturation 92 99 H 97 ABG Base Excess -8 L -10 L -10 L VBG pH VBG pCO2 VBG pO2 VBG Base Excess 10/02/24 10/02/24 10/02/24 19:42 21:33 22:35 ABG pH 7.12 L* D 7.21 L 7.25 L ABG pCO2 51 H D 41 D 33 ABG pO2 334 H D 54 L* D 233 H D ABG HCO3 17 L 16 L 14 L ABG O2 Saturation 101 H 84 L 101 H ABG Base Excess -12 L -11 L -12 L VBG pH VBG pCO2 VBG pO2 VBG Base Excess 10/03/24 10/03/24 10/03/24 06:49 09:59 11:35 ABG pH 7.17 L* 7.10 L* 7.10 L* ABG pCO2 37 36 33 ABG pO2 85 D 83 92 ABG HCO3 14 L 11 L 10 L ABG O2 Saturation 96 95 97 ABG Base Excess -14 L -17 L -18 L VBG pH VBG pCO2 VBG pO2 VBG Base Excess 10/04/24 10/04/24 10/04/24 06:00 06:44 11:26 ABG pH 6.87 L* D 6.99 L* D ABG pCO2 29 L 34 ABG pO2 100 62 L D ABG HCO3 5 L* 8 L* ABG O2 Saturation 96 87 L ABG Base Excess -27 L -22 L VBG pH 6.88 L VBG pCO2 29 L VBG pO2 95 H VBG Base Excess -26 L 10/04/24 10/04/24 10/05/24 16:02 18:33 06:27 ABG pH 7.22 L D 7.29 L 7.28 L ABG pCO2 32 32 30 L ABG pO2 58 L* 93 D 82 L ABG HCO3 13 L 15 L 14 L ABG O2 Saturation 88 L 98 97 ABG Base Excess -14 L -10 L -11 L VBG pH VBG pCO2 VBG pO2 VBG Base Excess Quality Measures Quality Measures sepsis Current suspected stage: septic shock (LA >4 and/or hypotension) Sepsis reassessment completed at (date): 10/05/24 Sepsis reassessment completed at (time): 09:00 Possible source: GI tract/intra-abdominal Blood cultures ordered: yes Antibiotic ordered: Yes Assessment & Plan Assessment Current Active Medications: Generic Name Dose Route Start Last Admin Trade Name Freq PRN Reason Stop Dose Admin Acetaminophen 650 mg 09/30/24 01:41 10/01/24 21:46 Acetaminophen 325 Mg Tablet PO 10/30/24 01:40 650 mg Q8H PRN Administration Fever >101.5 Citric Acid/Sodium Citrate 30 ml 09/30/24 11:30 10/03/24 12:54 Citric Acid/Sodium Citr 15 Ml Udc (Bicitra) PO 10/30/24 11:29 Not Given BID CATHY Furosemide 20 mg 10/01/24 09:00 10/03/24 12:54 Furosemide Inj 10 Mg/Ml Vial 2 Ml IVP 10/31/24 08:59 Not Given QDAY CATHY Heparin Sodium (Porcine) 5,000 unit 10/02/24 22:00 10/05/24 05:05 Heparin Sod Inj 5000 Unit/Ml Vial SC 10/16/24 21:59 5,000 unit Q8HR CATHY Administration Hydrocortisone Sodium Succinate 50 mg 10/03/24 18:00 10/05/24 12:12 Hydrocortisone Sod Succ Inj 100 Mg Vial IV 11/02/24 17:59 50 mg Q6HR CATHY Administration Piperacillin/Tazobactam/Dextrose 3.375 gm in 50 mls @ 12.5 mls/hr 09/30/24 14:00 10/05/24 05:05 Zosyn IV 10/07/24 13:59 12.5 mls/hr Q8HR CATHY Administration Protocol Fentanyl Citrate 2,500 mcg in 250 mls @ 2.5 mls/hr 10/02/24 18:31 10/04/24 09:00 Sublimaze Inj 2,500 Mcg/250 Ml Bag IV 10/07/24 17:22 0 mcg/hr .Q24H PRN 0 mls/hr PER PROTOCOL Titration Protocol 25 MCG/HR Cisatracurium Besylate 200 mg/ 520 mls @ 11.817 mls/hr 10/02/24 20:14 10/03/24 15:45 Sodium Chloride IV 11/01/24 20:13 0 mcg/kg/min .Q24H PRN 0 mls/hr Per Protocol Titration Protocol 1 MCG/KG/MIN Propofol 1,000 mg in 100 mls @ 2.256 mls/hr 10/03/24 08:09 10/04/24 09:15 Diprivan Ivpb IV 11/01/24 18:04 0 mcg/kg/min .Q24H PRN 0 mls/hr PER PROTOCOL Titration Protocol 5 MCG/KG/MIN Vasopressin/Sodium Chloride 20 unit in 100 mls @ 9 mls/hr 10/03/24 07:42 10/05/24 01:05 Vasostrict/Ns Ivpb IV 11/02/24 07:41 0.03 unit/min .Q11H7M PRN 9 mls/hr PER PROTOCOL Administration Protocol 0.03 UNIT/MIN Albumin Human 25 gm in 100 mls @ 100 mls/hr 10/04/24 03:31 10/05/24 09:16 Albuminar-25 Ivpb IV 10/07/24 03:30 100 mls/hr QDAY CATHY Administration Epinephrine/Sodium Chloride 4 mg in 250 mls @ 15.563 mls/hr 10/04/24 11:40 Adrenalin/Ns 4 Mg Ivpb IV 11/03/24 11:39 .Q16H4M PRN per protocol Protocol 0.05 MCG/KG/MIN Norepinephrine Bitartrate 16 mg in 250 mls @ 3.891 mls/hr 10/04/24 11:43 10/05/24 13:16 Levophed In Ns 16mg/250ml IV 11/01/24 17:21 1.18 mcg/kg/min .Q24H PRN 91.819 mls/hr PER PROTOCOL Titration Protocol 0.05 MCG/KG/MIN Dextrose 500 mls @ 40 mls/hr 10/04/24 14:30 10/05/24 03:21 D10w IV 11/03/24 14:29 40 mls/hr .[id number] CATHY Administration Vancomycin/Sodium Chloride 750 mg in 150 mls @ 120 mls/hr 10/05/24 10:00 10/05/24 10:00 Vancomycin/Ns 750 Mg Ivpb IV 10/12/24 09:59 120 mls/hr QDAY@1000 CATHY Administration Protocol Lactulose 20 gm 09/30/24 02:45 10/05/24 12:12 Lactulose Syrup 20 Gm/30 Ml Udc PO 10/30/24 02:44 20 gm QID CATHY Administration Protocol Ondansetron HCl 4 mg 09/30/24 01:50 10/01/24 18:18 Ondansetron Inj 2 Mg/Ml Inj 2 Ml IV 10/30/24 01:49 4 mg Q6H PRN Administration NAUSEA OR VOMITING Protocol Pantoprazole Sodium 40 mg 10/02/24 20:00 10/05/24 09:16 Pantoprazole Inj 40 Mg Vial IVP 11/01/24 19:59 40 mg BID CATHY Administration Pharmacy Consult 1 each 09/30/24 02:31 Pharmacy Renal Dose Adjustment 1 Ea XX 10/30/24 02:30 PRN PRN CONSULT Pharmacy Consult 1 each 10/04/24 09:45 Vancomycin Pharmacy To Dose 1 Each Each IV 11/03/24 09:44 QDAY PRN CONSULT Rifaximin 550 mg 09/30/24 02:45 10/05/24 12:12 Rifaximin 550 Mg Tablet PO 10/07/24 02:44 550 mg BID CATHY Administration Plan Acute this is a provideA 44-year-old male patient with past medical history of end-stage liver disease secondary to alcohol use disorder, esophageal varices s/p banding came to the hospital with complaints of altered mental status on 09/30/2024 and consulted for acute renal failure and electrolyte imbalance # Acute renal failure Hepatorenal syndrome in the setting of decompensated liver failure versus ATN -Creatinine at the time of admission is 1.2, increased to 1.5 next day and again came back to 1.2 -Patient was upgraded to ICU on 10/02/2024 for acute respiratory failure and acute encephalopathy -CT abdomen done during this visit showed Cirrhosis, liver lobular in contour, Prominent splenomegaly Atrophic left kidney with wall thickening of the left pelvicalyceal system -Since then creatinine is uptrending and as of 10/04/2024, creatinine is 4.2 >10/05, Cr 1.9 -Patient is found to be anuric Plan -Recommended to give 1 g/kg albumin to the patient, increase the dose of albumin to 25 g 3 times daily -Continue vasopressors -CRRT for 10 hours with potassium bath of 2K, calcium bath of 2.5, sodium 138, bicarb 40 done on 10/04 -Will do HD today as patient is still anuric -Recommended to continue to monitor renal function and electrolytes -Despite CRRT, patient likely to have poor prognosis in the setting of end-stage liver disease with severe acidosis # Severe metabolic acidosis # Lactic acidosis -On 09/15/2024, patient is found to have lactate of 14.6, bicarb 14.5 -Delta ratio is 1.06 plan -Will do HD today -Continue vasopressors #Shock, unknown etiology #Likely distributive from end stage liver disease vs sepsis #Acute hypoxic respiratory failure #Moderate ARDS #Pneumonia #End-stage liver disease #Hyperbilirubinemia #Ascites #Leukocytosis #Anemia #Coagulopathy #Hypoglycemia #Sepsis secondary to pneumonia #Upper extremity edema -Rest of the medical conditions to be treated as per ICU team Thank you for allowing us to involved in the care of the patient Patient plan of care was discussed with the attending physician, Dr. Corina Leonard, PGY1 Attending Provider Attestation/Addendum Patient seen and examined with resident physician Dr. Lyle. Note reviewed, agree with findings and recommendations. Patient with multiple system organ failure-acute respiratory failure needing ventilator, acute liver failure, acute renal failure with abdominal urinary output, coagulopathy, sepsis, hypotension needing pressors. Decided to proceed with CRRT. Continuous dialysis for 10 hours, blood flow 100-200, dialysate flow 100, Citrasate, heparin 500 bolus/100 units/h maintenance, no UF, bicarbonate 39, saline flush 50 mL/h Ordered. Plan of care discussed with ICU and dialysis nurse. Prognosis remains guarded. Last drink was in July. Not a candidate for liver transplant at this point. Family aware. Sister at bedside and had several questions. Explained that his prognosis overall is poor. Family meeting today regarding CODE STATUS. Critical care time spent more than 40 minutes regarding plan of care and disease management. Thank you Gilberto for allowing me to participate in the care of Mr. Villegas.
[2024-10-05] MEDS: Norepinephrine/NS 16mg/250ml 16 MG/250 ML BAG 88.706 MG IV (15:45)
[2024-10-05 15:56] LABS: Lactate (Lactic Acid) 6.8 mMol/L (0.4-2.0)
[2024-10-05 16:15] LABS: Albumin, Serum 2.7 gm/dL (3.5-5.0); Anion Gap 13 (7-16); BUN/Creatinine Ratio 11 Ratio (12-20); Blood Urea Nitrogen 11 mg/dL (9-23); Calcium 8.7 mg/dL (8.3-10.6); Calcium (Corrected) 9.7 mg/dL (8.5-10.1); Carbon Dioxide 21.9 mMol/L (20.0-31.0); Chloride 97 mMol/L (98-107); Estimated Creatinine Clearance 96.4 mL/min (>60); Glucose 93 mg/dL (74-106); Osmolality,Calculated 263 (275-295); Phosphorous 2.3 mg/dL (2.4-5.1); Potassium 4.2 mMol/L (3.4-5.1); Sodium 132 mMol/L (136-145); eGFR > 60 See Note
[2024-10-05 17:39] LABS: Band Neutrophils (Manual) 9 % (0-6); Lymphocytes (Manual) 4 % (20-44); Monocytes (Manual) 6 % (2-9); Neutrophils (Manual) 81 % (50-70)
[2024-10-05 18:45] LABS: Reflex Lactate? Y
[2024-10-05 19:09] LABS: Lactic Acid, 3 HR 2.2 mMol/L (0.4-2.0)
[2024-10-05] MEDS: HEPARIN SOD LOCK SYR 100 UNIT/ML 500 UNIT IV (20:20)
[2024-10-05] MEDS: Norepinephrine/NS 16mg/250ml 16 MG/250 ML BAG 91.819 MG IV (21:15)
[2024-10-05 23:28] LABS: Albumin, Serum 2.5 gm/dL (3.5-5.0); Anion Gap 14 (7-16); BUN/Creatinine Ratio 8 Ratio (12-20); Blood Urea Nitrogen 9 mg/dL (9-23); Calcium 9.1 mg/dL (8.3-10.6); Calcium (Corrected) 10.3 mg/dL (8.5-10.1); Carbon Dioxide 22.5 mMol/L (20.0-31.0); Chloride 98 mMol/L (98-107); Creatinine (Component) 1.1 mg/dL (0.6-1.3); Estimated Creatinine Clearance 87.7 mL/min (>60); Glucose 79 mg/dL (74-106); Osmolality,Calculated 265 (275-295); Phosphorous 2.2 mg/dL (2.4-5.1); Potassium 3.6 mMol/L (3.4-5.1); Sodium 134 mMol/L (136-145); eGFR > 60 See Note
[2024-10-06] VITALS (108 sets, daily range): BP systolic 26–141; BP diastolic 12–135; PULSE 73–128; RESP 23–43; TEMP 37.8–38; O2SAT 72–99; BMI 30.2
[2024-10-06] MEDS: Norepinephrine/NS 16mg/250ml 16 MG/250 ML BAG 88.706 MG IV ×2 (00:15→02:42)
[2024-10-06] MEDS: VASOPRESSIN IN NS IVPB 20 UNIT/100 ML BAG 9 UNIT IV (00:15)
[2024-10-06 01:10] LABS: Reflex Lactate? Y
[2024-10-06 03:33] LABS: Basophils % (Auto) 0 % (0-2.5); Eosinophils % (Auto) 0 % (0-10); Hematocrit 21.3 % (41.0-53.0); Immature Granulocytes % (Auto) 1 % (0-0); Immature Granulocytes Auto 0.19 Thou/mm3 (0.00-0.00); Lactate (Lactic Acid) 8.5 mMol/L (0.4-2.0); Lymphocytes # (Auto) 1.3 Thou/mm3 (1.0-4.8); Lymphocytes % (Auto) 9 % (10-50); Mean Corpuscular HGB Conc 34.3 g/dl (31.0-37.0); Mean Corpuscular Hemoglobin 27.7 pg (25.0-35.0); Mean Corpuscular Volume 81 fL (80-100); Monocytes # (Auto) 0.9 Thou/mm3 (0.0-0.8); Monocytes % (Auto) 6 % (0-12); Neutrophils # (Auto) 11.9 Thou/mm3 (1.8-7.7); Neutrophils % (Auto) 84 % (37-80); Nucleated Red Blood Cell % 4 /100 WBC (0); Platelet Count 68 Thou/mm3 (140-440); RDW Standard Deviation 71.6 fL (35.1-43.9); Red Blood Count 2.64 Miln/mm3 (4.50-5.90); White Blood Count 14.2 Thou/mm3 (3.8-10.6)
[2024-10-06 04:08] LABS: Hemoglobin 7.3 g/dL (13.5-16.0)
[2024-10-06 04:09] LABS: Slide Review Platelets confirmed
[2024-10-06 04:11] LABS: Alanine Aminotransferase 471 U/L (10-49); Albumin, Serum 2.4 gm/dL (3.5-5.0); Albumin/Globulin Ratio 0.7 (1.2-2.2); Alkaline Phosphatase 265 U/L (46-116); Anion Gap 15 (7-16); Aspartate Amino Transferase 1497 U/L (0-34); BUN/Creatinine Ratio 8 Ratio (12-20); Blood Urea Nitrogen 11 mg/dL (9-23); Calcium 9.1 mg/dL (8.3-10.6); Calcium (Corrected) 10.4 mg/dL (8.5-10.1); Carbon Dioxide 21.1 mMol/L (20.0-31.0); Chloride 98 mMol/L (98-107); Creatinine (Component) 1.4 mg/dL (0.6-1.3); Estimated Creatinine Clearance 68.9 mL/min (>60); Globulin 3.3 gm/dL (2.3-3.5); Glucose 79 mg/dL (74-106); Osmolality,Calculated 266 (275-295); Phosphorous 2.3 mg/dL (2.4-5.1); Potassium 3.6 mMol/L (3.4-5.1); Sodium 134 mMol/L (136-145); Total Protein 5.7 gm/dL (5.7-8.2); eGFR > 60 See Note
[2024-10-06] MEDS: DEXTROSE 10%-WATER 500 ML 40 ML IV (04:33)
--- NOTE | 2024-10-06 05:00 | XR_ITS ---
Examination: AP chest single view TECHNIQUE: AP portable semiupright chest single view Exam date and time: October 06, 2024 at 0325 hours Comparison October 05, 2024 INDICATIONS: Hypoxic respiratory failure, pneumonia or ARDS on chest imaging this week, post intubation FINDINGS: Extensive bilateral lung opacity Right internal jugular central line tip SVC satisfactory position Tracheal tube tip 5.5 cm above wesley. The orogastric tube is in the stomach, the tip is below the level of the film. Normal heart size. Mild osteopenia. IMPRESSION:. Extensive bilateral pneumonia, ARDS pattern
[2024-10-06 05:11] LABS: Bilirubin,Total 21.9 mg/dL (0.3-1.2)
[2024-10-06] MEDS: HYDROCORTISONE SOD SUCC INJ 100 MG VIAL 50 MG IV ×2 (05:31)
[2024-10-06] MEDS: LACTULOSE SYRUP 20 GM/30 ML UDC PO (05:32)
[2024-10-06] MEDS: PIPER/TAZO 3.375 GM PREMIX 3.375 GM/50 ML BAG IV (05:33)
[2024-10-06] MEDS: Norepinephrine/NS 16mg/250ml 16 MG/250 ML BAG 94.931 MG IV (06:19)
[2024-10-06 06:29] LABS: Base Excess -4 (-3-3); HCO3 20 mEq/L (20-26); Inspired Oxygen, FIO2 55 %; O2 Saturation 95 % (91-98); PCO2 30 mmHg (32.0-48.0); PO2 72 mmHg (83-108); pH, Arterial 7.45 (7.35-7.45)
[2024-10-06 06:29] LABS: Reflex Lactate? Y
[2024-10-06 06:31] LABS: Allen Test Not Performed; Puncture Site Arterial Line
[2024-10-06 07:47] LABS: Lactic Acid, 3 HR 10.8 mMol/L (0.4-2.0)
--- NOTE | 2024-10-06 07:53 | ESPR_ITS ---
<Statement entered by Wilfred Wyatt MD - 10/06/24 09:52> TOTAL CC TIME: 90 MIN I saw and evaluated the patient. I reviewed the resident?s note and agree with findings and plan as documented in the resident?s note. Upon my evaluation, this patient had a high probability of imminent or life- threatening deterioration due to multiorgan failure/septic shock/liver failure, renal failure, which required my direct attention, intervention, and personal management. This time is exclusive of time spent on procedures, which are documented separately if performed. remains unresponsive off sedation ammonia >100 lactulose held due to drop in H/H ?GIB - high risk 200ml Saline OGT lavage planned if + for edgar blood/CGE will start octreotide h/h dropping and plts transfuse 2uprbc + 3u FFP -->may not be effective given severe liver failure SVI response 10.8% c/w fluid responsive state albumin 25g also given HOLD CRRT - too unstable - pressor doses increasing LA clearance on CRRT initially improved but then worse again prognosis grim DNR. Documentation for date of: 10/06/24 Subjective Subjective Interval history: 10/04/2024- Patient seen and examined at bedside. Overnight, continue to be in high pressors demand. Levophed at 0.7 with vaso at 0.03, continues to be on fentanyl and propofol. IV hydrocortisone added to attempt to reduce pressor requirements. Patient received another liter of IV fluids overnight as well as albumin. Lactic acid continues to be elevated, currently at 13.6. Patient has continued to be anuric, with only able to 10 cc urine output overnight. His CO2 in the 90s. Other labs evaluated, creatinine elevated to 4.1, potassium of 5.6, elevated transaminases within the values of ischemic hepatitis and uptrending WBCs. Nephrology consulted for emergent dialysis, consent obtained from family for CRRT. Bicarb pushes also given Will continue renal panel as well as ABGs every 6 hours Additionally, will do a diagnostic paracentesis to exclude SBP as additional source of sepsis. Family has been contacted and updated, patient remains to be full code, will have a goals of care discussion once all concerned parties are available 10/05/2024- Patient seen and examined at bedside. Overnight, continued to have very minimal urine output, 10 cc only, lactates continue to be elevated up to 14. Levophed requirements initially uptrending up to 1.44. All sedation turned off in the early hours of yesterday. At bedside today, GCS is 3T. Pupil reflex very minimal and sluggish, no corneal or oculocephalic reflex. pH this morning 7.28 with CO2 of 30 and bicarb of 14. Lactic acid at 14.6, had CRRT yesterday for about 12 hours. Per nephrology, will have another session today. Other labs reviewed, significant elevated transaminases and bilirubin, downtrending leukocytosis, stable hemoglobin at 8.3. Blood cultures returned for micrococcus in 1 bottle, likely to be contamination. Cheeta put on evaluate for fluid responsiveness, patient is not fluid responsive. Will continue to down titrate pressors as tolerated. Goals of care discussion had with family today, will follow-up on decision as regarding CODE STATUS. patient was seen and examined at bedside Patient overnight had a fever of approximately 100.0. The likely source of infection is suspected to do pneumonia. Patient is covered with Zosyn and vancomycin. Peritoneal fluid culture is still pending and leukocytosis has shown improvement. Chest x-ray is positive for PNA. Recent blood culture preliminary result is negative. Sputum culture still pending It was noted that the previous blood culture, collected on 09/29/2024, showed a positive result for GPC. However the lab has determined this result to be likely due to contamination, possible due to issues with precipitation process or reading error. The patient?s hemoglobin dropped from 8.1 to 6.2. An NG lavage was performed, revealing an upper GI bleed. The patient will receive 2 units of PRBCs and 2 units of FFPs. A Cheetah monitor has been placed, and the patient is responsive to fluid resuscitation. A repeat ABG showed primary respiratory alkalosis with a pH of 7.45 and a CO2 of 31. We will maintain safe ventilatory settings with low tidal volume, reducing tidal volume from 450 mL to 380 mL. A follow-up ABG will be performed. The AGMA has resolved, and the patient underwent CRRT therapy. However, lactic acidosis increased to 10.8, and the patient is currently too unstable to undergo another session of CRRT. Minimal urine output is noted. Ammonia level was 118. Given the concern for GI bleed, we will defer increasing the lactulose dose and continue the current dosage of lactulose 20 mg four times daily. The patient's condition remains critical, and the family will be updated on the clinical course. Exam Vital Signs Temp Pulse Resp BP Pulse Ox O2 Del Method O2 Flow Rate 100.4 F 121 H 35 H 110/53 L 97 Mechanical Ventilation 30 10/06/24 04:01 10/06/24 07:00 10/05/24 09:00 10/06/24 07:00 10/06/24 07:00 10/05/24 17:00 10/02/24 13:05 FiO2 55 10/06/24 06:13 Narrative Exam GENERAL: GCS-3T, no sedation NEURO: GCS-3T, minimal and sluggish pupillary reflexes, no corneal or oculocephalic HEENT: Dry mucosa. Icteric sclera CARDIO: No chest pain on palpation. Tachycardic, regular rhythm, no murmurs PULM: Crackles and rhonchi mainly on left side. GI: Abdomen firm, distended, positive fluid wave. 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 SKIN/MSK/EXT: Icteric skin. Bilateral trace pitting edema in lower extremities. Upper extremities edema R>L Objective Labs 10/06/24 07:30 10/06/24 10:03 Labs: Laboratory Results - last 24 hr 10/05/24 10/05/24 10/05/24 07:12 15:39 19:00 WBC RBC Hgb Hct MCV MCH MCHC RDW Std Deviation Plt Count Neut % (Auto) Lymph % (Auto) Brown % (Auto) Eos % (Auto) Baso % (Auto) Neut # (Auto) Lymph # (Auto) Brown # (Auto) Eos # (Auto) Baso # (Auto) Immature Gran # (Auto) Absolute Nucleated RBC Immature Gran % Neutrophils % (Manual) 81 H Monocytes % (Manual) 6 Nucleated RBC % Band Neutrophils 9 H Lymphocytes (Manual) 4 L PT 37.0 H* D INR 3.7 H APTT 126.1 H* D Fibrinogen 108 L D-Dimer > 3820 H Puncture Site ABG pH ABG pCO2 ABG pO2 ABG HCO3 ABG O2 Saturation ABG Base Excess FiO2 Sodium 132 L Potassium 4.2 D Chloride 97 L Carbon Dioxide 21.9 Anion Gap 13 BUN 11 Creatinine 1.0 D Estim Creat Clear Calc 96.4 eGFR > 60 BUN/Creatinine Ratio 11 L Glucose 93 Calculated Osmolality 263 L Lactic Acid 6.8 H* 2.2 H Calcium 8.7 Corrected Calcium 9.7 Phosphorus 2.3 L Total Bilirubin AST ALT Alkaline Phosphatase Total Protein Albumin 2.7 L Globulin Albumin/Globulin Ratio Misc Test Result 10/05/24 10/05/24 10/06/24 21:52 22:57 03:25 WBC 14.2 H D RBC 2.64 L Hgb 7.3 L Hct 21.3 L* MCV 81 MCH 27.7 MCHC 34.3 RDW Std Deviation 71.6 H Plt Count 68 L D Neut % (Auto) 84 H Lymph % (Auto) 9 L Brown % (Auto) 6 Eos % (Auto) 0 Baso % (Auto) 0 Neut # (Auto) 11.9 H Lymph # (Auto) 1.3 Brown # (Auto) 0.9 H Eos # (Auto) 0.0 Baso # (Auto) 0.0 Immature Gran # (Auto) 0.19 H Absolute Nucleated RBC 0.60 H Immature Gran % 1 H Neutrophils % (Manual) Monocytes % (Manual) Nucleated RBC % 4 H Band Neutrophils Lymphocytes (Manual) PT INR APTT Fibrinogen D-Dimer Puncture Site ABG pH ABG pCO2 ABG pO2 ABG HCO3 ABG O2 Saturation ABG Base Excess FiO2 Sodium 134 L 134 L Potassium 3.6 D 3.6 Chloride 98 98 Carbon Dioxide 22.5 21.1 Anion Gap 14 15 BUN 9 11 Creatinine 1.1 1.4 H Estim Creat Clear Calc 87.7 68.9 eGFR > 60 > 60 BUN/Creatinine Ratio 8 L 8 L Glucose 79 79 Calculated Osmolality 265 L 266 L Lactic Acid 7.0 H* 8.5 H* Calcium 9.1 9.1 Corrected Calcium 10.3 H 10.4 H Phosphorus 2.2 L 2.3 L Total Bilirubin 21.9 H* D AST 1497 H* ALT 471 H Alkaline Phosphatase 265 H Total Protein 5.7 Albumin 2.5 L 2.4 L Globulin 3.3 Albumin/Globulin Ratio 0.7 L Misc Test Result Platelets confirmed 10/06/24 10/06/24 06:22 07:30 WBC RBC Hgb Hct MCV MCH MCHC RDW Std Deviation Plt Count Neut % (Auto) Lymph % (Auto) Brown % (Auto) Eos % (Auto) Baso % (Auto) Neut # (Auto) Lymph # (Auto) Brown # (Auto) Eos # (Auto) Baso # (Auto) Immature Gran # (Auto) Absolute Nucleated RBC Immature Gran % Neutrophils % (Manual) Monocytes % (Manual) Nucleated RBC % Band Neutrophils Lymphocytes (Manual) PT INR APTT Fibrinogen D-Dimer Puncture Site Arterial Line ABG pH 7.45 D ABG pCO2 30 L ABG pO2 72 L ABG HCO3 20 ABG O2 Saturation 95 ABG Base Excess -4 L FiO2 55 Sodium Potassium Chloride Carbon Dioxide Anion Gap BUN Creatinine Estim Creat Clear Calc eGFR BUN/Creatinine Ratio Glucose Calculated Osmolality Lactic Acid 10.8 H* Calcium Corrected Calcium Phosphorus Total Bilirubin AST ALT Alkaline Phosphatase Total Protein Albumin Globulin Albumin/Globulin Ratio Misc Test Result ABG Interpretation ABG results: 09/29/24 10/02/24 10/02/24 19:27 11:59 17:09 ABG pH 7.41 7.39 7.29 L D ABG pCO2 24 L 24 L 32 ABG pO2 58 L* 108 D 86 D ABG HCO3 15 L 14 L 15 L ABG O2 Saturation 92 99 H 97 ABG Base Excess -8 L -10 L -10 L VBG pH VBG pCO2 VBG pO2 VBG Base Excess 10/02/24 10/02/24 10/02/24 19:42 21:33 22:35 ABG pH 7.12 L* D 7.21 L 7.25 L ABG pCO2 51 H D 41 D 33 ABG pO2 334 H D 54 L* D 233 H D ABG HCO3 17 L 16 L 14 L ABG O2 Saturation 101 H 84 L 101 H ABG Base Excess -12 L -11 L -12 L VBG pH VBG pCO2 VBG pO2 VBG Base Excess 10/03/24 10/03/24 10/03/24 06:49 09:59 11:35 ABG pH 7.17 L* 7.10 L* 7.10 L* ABG pCO2 37 36 33 ABG pO2 85 D 83 92 ABG HCO3 14 L 11 L 10 L ABG O2 Saturation 96 95 97 ABG Base Excess -14 L -17 L -18 L VBG pH VBG pCO2 VBG pO2 VBG Base Excess 10/04/24 10/04/24 10/04/24 06:00 06:44 11:26 ABG pH 6.87 L* D 6.99 L* D ABG pCO2 29 L 34 ABG pO2 100 62 L D ABG HCO3 5 L* 8 L* ABG O2 Saturation 96 87 L ABG Base Excess -27 L -22 L VBG pH 6.88 L VBG pCO2 29 L VBG pO2 95 H VBG Base Excess -26 L 10/04/24 10/04/24 10/05/24 16:02 18:33 06:27 ABG pH 7.22 L D 7.29 L 7.28 L ABG pCO2 32 32 30 L ABG pO2 58 L* 93 D 82 L ABG HCO3 13 L 15 L 14 L ABG O2 Saturation 88 L 98 97 ABG Base Excess -14 L -10 L -11 L VBG pH VBG pCO2 VBG pO2 VBG Base Excess 10/06/24 06:22 ABG pH 7.45 D ABG pCO2 30 L ABG pO2 72 L ABG HCO3 20 ABG O2 Saturation 95 ABG Base Excess -4 L VBG pH VBG pCO2 VBG pO2 VBG Base Excess Quality Measures Quality Measures sepsis Current suspected stage: sepsis Possible source: GI tract/intra-abdominal Blood cultures ordered: yes Antibiotic ordered: Yes Assessment & Plan Assessment Current Active Medications: Generic Name Dose Route Start Last Admin Trade Name Freq PRN Reason Stop Dose Admin Acetaminophen 650 mg 09/30/24 01:41 10/01/24 21:46 Acetaminophen 325 Mg Tablet PO 10/30/24 01:40 650 mg Q8H PRN Administration Fever >101.5 Citric Acid/Sodium Citrate 30 ml 09/30/24 11:30 10/03/24 12:54 Citric Acid/Sodium Citr 15 Ml Udc (Bicitra) PO 10/30/24 11:29 Not Given BID CATHY Heparin Sodium (Porcine) 5,000 unit 10/06/24 09:00 Heparin Sod Inj 5000 Unit/Ml Vial SC 10/20/24 08:59 BID CATHY Hydrocortisone Sodium Succinate 50 mg 10/03/24 18:00 10/06/24 05:31 Hydrocortisone Sod Succ Inj 100 Mg Vial IV 11/02/24 17:59 50 mg Q6HR CATHY Administration Piperacillin/Tazobactam/Dextrose 3.375 gm in 50 mls @ 12.5 mls/hr 09/30/24 14:00 10/06/24 05:33 Zosyn IV 10/07/24 13:59 12.5 mls/hr Q8HR CATHY Administration Protocol Fentanyl Citrate 2,500 mcg in 250 mls @ 2.5 mls/hr 10/02/24 18:31 10/04/24 09:00 Sublimaze Inj 2,500 Mcg/250 Ml Bag IV 10/07/24 18:30 0 mcg/hr .Q24H PRN 0 mls/hr PER PROTOCOL Titration Protocol 25 MCG/HR Propofol 1,000 mg in 100 mls @ 2.256 mls/hr 10/03/24 08:09 10/04/24 09:15 Diprivan Ivpb IV 11/01/24 18:04 0 mcg/kg/min .Q24H PRN 0 mls/hr PER PROTOCOL Titration Protocol 5 MCG/KG/MIN Vasopressin/Sodium Chloride 20 unit in 100 mls @ 9 mls/hr 10/03/24 07:42 10/06/24 00:15 Vasostrict/Ns Ivpb IV 11/02/24 07:41 0.03 unit/min .Q11H7M PRN 9 mls/hr PER PROTOCOL Administration Protocol 0.03 UNIT/MIN Albumin Human 25 gm in 100 mls @ 100 mls/hr 10/04/24 03:31 10/05/24 09:16 Albuminar-25 Ivpb IV 10/07/24 03:30 100 mls/hr QDAY CATHY Administration Epinephrine/Sodium Chloride 4 mg in 250 mls @ 15.563 mls/hr 10/04/24 11:40 Adrenalin/Ns 4 Mg Ivpb IV 11/03/24 11:39 .Q16H4M PRN per protocol Protocol 0.05 MCG/KG/MIN Norepinephrine Bitartrate 16 mg in 250 mls @ 3.891 mls/hr 10/04/24 11:43 10/06/24 07:10 Levophed In Ns 16mg/250ml IV 11/01/24 17:21 1.36 mcg/kg/min .Q24H PRN 105.825 mls/hr PER PROTOCOL Titration Protocol 0.05 MCG/KG/MIN Dextrose 500 mls @ 40 mls/hr 10/04/24 14:30 10/06/24 04:33 D10w IV 11/03/24 14:29 40 mls/hr .[id number] CATHY Administration Vancomycin/Sodium Chloride 750 mg in 150 mls @ 120 mls/hr 10/05/24 10:00 10/05/24 10:00 Vancomycin/Ns 750 Mg Ivpb IV 10/12/24 09:59 120 mls/hr QDAY@1000 CATHY Administration Protocol Lactulose 20 gm 09/30/24 02:45 10/06/24 05:32 Lactulose Syrup 20 Gm/30 Ml Udc PO 10/30/24 02:44 20 gm QID CATHY Administration Protocol Ondansetron HCl 4 mg 09/30/24 01:50 10/01/24 18:18 Ondansetron Inj 2 Mg/Ml Inj 2 Ml IV 10/30/24 01:49 4 mg Q6H PRN Administration NAUSEA OR VOMITING Protocol Pantoprazole Sodium 40 mg 10/02/24 20:00 10/05/24 22:02 Pantoprazole Inj 40 Mg Vial IVP 11/01/24 19:59 40 mg BID CATHY Administration Pharmacy Consult 1 each 09/30/24 02:31 Pharmacy Renal Dose Adjustment 1 Ea XX 10/30/24 02:30 PRN PRN CONSULT Pharmacy Consult 1 each 10/04/24 09:45 Vancomycin Pharmacy To Dose 1 Each Each IV 11/03/24 09:44 QDAY PRN CONSULT Rifaximin 550 mg 09/30/24 02:45 10/05/24 22:03 Rifaximin 550 Mg Tablet PO 10/07/24 02:44 550 mg BID CATHY Administration Plan Summary: The patient is a 44-year-old male with a past medical history of end- stage liver disease, alcoholic liver cirrhosis with esophageal varices status post banding who presented to the ED on 09/30/2024, brought in by sister due to altered mental status that was noticed about a day prior to presentation. Admitted to the ICU for intubation and airway support. Neuro Acute hepatic encephalopathy secondary due to hyperammonemia The patient has been sedation-free for more than 48 hours but remains with a Finesse Coma Scale (GCS) of 3. Pupils are sluggish and do not react to light. There is no response to painful stimuli, and the oculocephalic reflexes are absent. Cardiovascular # Septic shock Patient does have pneumonia, community vs acquired based on recent discharge. Started on broad spectrum antibiotics. Overnight patient pressor requirement increased, Levophed currently running at 1.4 along with vasopressin. Patient is also on hydrocortisone 50 every 6 hours. Patient yesterday had CRRT, 2 L of fluid was removed. Digital monitor was placed, patient is responsive to fluid will receive 2 FFP's and 2 PRBCs since hemoglobin significantly dropped Continue pressor support 10/06/2024:Patient overnight had a fever of approximately 100.0. The likely source of infection is suspected to do pneumonia. Patient is covered with Zosyn and vancomycin. Peritoneal fluid culture is still pending and leukocytosis has shown improvement. Chest x-ray is positive for PNA. Recent blood culture preliminary result is negative. Sputum culture still pending It was noted that the previous blood culture, collected on 09/29/2024, showed a positive result for GPC. However the lab has determined this result to be likely due to contamination, possible due to issues with precipitation process or reading error. Plan: -Continue Broad spectrum antibiotics -Continue pressor support, titrating for MAP >60 or SBP>90 -Ultrasound pending, will follow-up with results Respiratory #Acute respiratory failure #Acute lung injury #Pneumonia #Primary respiratory alkalosis The patient presented with chills and productive cough. ED, meds SIRS criteria with tachycardia and elevated WBCs. Chest x-ray was positive for lobar infiltrate. At the time, pH six 7.41 with pCO2 of 24 and bicarb of 15. Labs significant for leukocytosis and lactic acidosis. Patient was started on IV Zosyn for pneumonia, likely hospital-acquired based on recent discharge from hospital. MRSA nares negative. The patient developed worsening respiratory distress with tachypnea and increased work of breathing. Was placed on BiPAP and continued to be in respiratory distress. He was upgraded to the ICU for ARF and consequent intubation. 10/03/2024- At bedside today, patient is sedated and paralyzed on propofol, fentanyl and Nimbex. ABG ths morning- pH-7.17, CO2-36, HCO3- 13.3. Vent settings adjusted, increased TV , RR already at 34 10/04/2024- Permissive hypercapnia allowed for ARDS. pH this morning showed- 6.87, CO2- 29, HCO3- 5. While still attempting to maintaining lung protective strategies, adjusting the tidal volume and RR. 10/05/2024-intubated and on MV. Tidal volumes of 450 with respiratory rate in the 30s and PEEP of 10 to compensate for metabolic acidosis. pH this morning 7.28, CO2 37 bicarb 14 10/06/2024-patient is intubated and on mechanical ventilation. Sedation free, GCS of score 3.A repeat ABG showed primary respiratory alkalosis with a pH of 7.45 and a CO2 of 30. We will maintain safe ventilatory settings with low tidal volume, reducing tidal volume from 450 mL to 380 mL. Allowing permissive hypercapnia, A follow-up ABG will be performed. Plan: -Lung protective strategies- Ventilator settings with low tidal volume (6cc/kg), plateau pressure <30 permissive hypercapnia if tolerable, otherwise -Blood culture preliminary negative, sputum culture still pending,It was noted that the previous blood culture, collected on 09/29/2024, showed a positive result for GPC. However the lab has determined this result to be likely due to contamination, possible due to issues with precipitation process or reading error. Will follow-up with final blood culture results. Most likely the source of the sepsis is PNA seen on imaging. -Continue IV Zosyn and vancomycin GI #End-stage liver disease #Hyperbilirubinemia #Ascites #History of esophageal varices s/p banding #Upper GI bleed #Hyperammonemia On admission his hemoglobin stable at 8.7. Coagulation panel showed prolonged PTT of 21.4, INR of 2.1, PTT 49.7, however there was no signs of active bleeding. Total bilirubin 25.1, magnesium 1.5, total bilirubin of 25.1, AST 68, ALT 46 with a ratio of 2:1 which possibly indicate exogenous hepatic consult such as alcohol or drugs. Ammonia level of 46, Pro-Adin 1.86. Patient has history of recurrent hepatic encephalopathy despite compliance to medications. Patient was sent to ultrasound-guided paracentesis, however there is not enough ascitic fluid for drainage. MELD score-29, 19.6 %/month mortality, child Hale class C 10/04/2024- Diagnostic paracentesis done, follow up culture, stain and cytology Plan: -Continue lactulose per OG tube, 20 3 times daily -Continue rifaximin -Follow up culture, stain and cytology of peritoneal fluid analysis -10/06/24:The patient?s hemoglobin dropped from 8.1 to 6.2. An NG lavage was performed, revealing an upper GI bleed. The patient will receive 2 units of PRBCs and 2 units of FFPs. A Cheetah monitor has been placed, and the patient is responsive to fluid resuscitation. Ammonia level noted to be elevated 118, given the concern of GI bleed, we will defer increasing lactulose. Renal #Acute kidney injury-resolved On admission, the patient had a creatinine of 1.2. Creatinine about a week prior was 0.8. On date of admission, increased to 1.5. Today, creatinine still at 1.2 10/03/2024-creatinine this morning elevated at 2.3, likely as a result of shock. Will give IV fluids if patient is fluid responsive and repeat renal panel. Urine output 160 cc overnight. 10/04/2024- Creatinine at 4.1 today, urine output [id number] only overnight. Patient continues to be in acidosis. Nephrology consulted, hemodialysis/CRRT initiated. 10/05/2024: Post CRRT yesterday, creatinine 1.9. Still anuric with 10 cc overnight. Another session of CRRT to be had today. Continue strict urine output per nephrology every 6 hours. 10/06/2024: Patient underwent CRRT yesterday, 2 L was removed, patient was hypotensive today in the morning, Cheetah monitor was placed patient is responsive to fluid , fluid resuscitation with 2 PRBCs and 2 FFP's as patient is having upper GI bleed. Patient currently is too unstable for another CRRT session. Lactic acid is uptrending Plan: -Avoid nephrotoxic medications -Renally dose medications -Repeat panel every 6hrs -To stable for another CRRT/ # Metabolic acidosis-resolved # Anion gap metabolic acidosis-resolved Anion gap of 11 with bicarb of 15 Likely due to increased bowel movements from lactulose administration 10/03/2024: Initial pH this morning significant for acidosis with bicarb of 13.3. Lactic acid of 5.3. Normal BHB Delta delta gap-0.85. Will obtain urine lytes evaluate urine anion gap and for etiology of NAGMA. 10/04/2024- Patient still has AGMA and NAGMA today. Bicarb this morning at 5, received 2 amps of bicarb. Patient has only made about 20ccs of urine in total. 10/05/2024: Lactic acid today at 14.6, bicarb of 14. Delta delta gap and 1.45, pure AGMA 10/06/2024: Today bicarb was 21.1, anion gap within normal limit, pH is 7.45. Patient underwent CRRT therapy yesterday. Currently too unstable to undergo another session Plan: -Continue to monitor Heme #Leukocytosis improving #Acute blood loss anemia #Coagulopathy in the setting of liver disease In the setting of end-stage liver disease with esophageal varices status post banding. Patient also found to have sepsis. 10/03/2024-leukocytosis with downtrending WBC, Anemia with hemoglobin of 8, stable for patient. 10/04/2024- Uptrending WBC today. Anemia but stable hemoglobin. Elevated PT, PTT and low fibrinogen 10/05/2024-significant elevated PT, INR and APTT with fibrinogen of 108. 10/06/2024-DIC panel was ordered, hemoglobin significantly dropped, patient is having upper GI bleed, will be receiving 2 FFP's and 2 PRBCs, will follow-up with repeat H&H . Endo #Hypoglycemia Blood glucose this morning is 66, repeat at 64. on D10 drip at 30 cc/h. Continue blood glucose checks every 4 hours. 10/04/2024- Blood glucose overight was low on D10 at 50cc/hr, received DS-LR. Blood glcose this morning at 93. Will continue glucose checks Q4h and start on D10 drip if hypoglycemic. 10/05/2024: Blood glucose this morning at 78, patient continues to be on D10 drip. 10/06/2024 glucose still in the low 70s, continue D10 drip Plan: -Bedside glucose check every 4hrs ID #Sepsis secondary to pneumonia On IV Zosyn and vancomycin, see resp above 10/04/2024- Vancomycin trough elevated on 10/02/2024. Pharmacy dosing, medication was held. 10/05/2024-continue IV Zosyn and vancomycin 10/06/2024-Patient overnight had a fever of approximately 100.0. The likely source of infection is suspected to do pneumonia. Patient is covered with Zosyn and vancomycin. Peritoneal fluid culture is still pending and leukocytosis has shown improvement. Chest x-ray is positive for PNA. Recent blood culture preliminary result is negative. Sputum culture still pending It was noted that the previous blood culture, collected on 09/29/2024, showed a positive result for GPC. However the lab has determined this result to be likely due to contamination, possible due to issues with precipitation process or reading error. MSK #Upper extremity edema Bilateral upper extremity edema, R>L. Doppler US done yesterday was negative for DVT but was positive for thrombus in the superficial cephalic vein Health maintenance: Dispo: ICU for acute respiratory failure Diet: N.p.o. GI: Pantoprazole 40 mg twice daily DVT: SC heparin Lines: Peripheral, right IJ, right HD Cath Code:DNR Patient care was discussed with attending physician Dr. Yoselin Capps MD PGY-2
[2024-10-06 07:59] LABS: Basophils % (Auto) 0 % (0-2.5); Eosinophils % (Auto) 0 % (0-10); Immature Granulocytes % (Auto) 1 % (0-0); Immature Granulocytes Auto 0.21 Thou/mm3 (0.00-0.00); Lymphocytes # (Auto) 1.4 Thou/mm3 (1.0-4.8); Lymphocytes % (Auto) 9 % (10-50); Mean Corpuscular HGB Conc 33.3 g/dl (31.0-37.0); Mean Corpuscular Hemoglobin 27.7 pg (25.0-35.0); Mean Corpuscular Volume 83 fL (80-100); Monocytes % (Auto) 7 % (0-12); Neutrophils # (Auto) 12.7 Thou/mm3 (1.8-7.7); Neutrophils % (Auto) 83 % (37-80); Nucleated Red Blood Cell # 0.72 Thou/mm3 (0.00-0.00); Nucleated Red Blood Cell % 5 /100 WBC (0); RDW Standard Deviation 75.2 fL (35.1-43.9); Red Blood Count 2.24 Miln/mm3 (4.50-5.90); White Blood Count 15.4 Thou/mm3 (3.8-10.6)
[2024-10-06 08:08] LABS: Ammonia 118 uMol/L (11-32)
[2024-10-06 08:10] LABS: Hematocrit 18.6 % (41.0-53.0); Hemoglobin 6.2 g/dL (13.5-16.0)
[2024-10-06 08:11] LABS: Platelet Count 69 Thou/mm3 (140-440)
[2024-10-06] MEDS: Norepinephrine/NS 16mg/250ml 16 MG/250 ML BAG 108.938 MG IV (08:13)
[2024-10-06] MEDS: ALBUMIN HUMAN 25% IVPB 25 GM/100 ML BTL IV (08:15)
[2024-10-06] MEDS: PANTOPRAZOLE INJ 40 MG VIAL IVP (08:15)
[2024-10-06] MEDS: rifaximin 550 MG TABLET PO (08:16)
[2024-10-06 08:37] LABS: D-Dimer 3510 ng/mL (<600)
[2024-10-06 09:16] LABS: INR 3.7 (0.9-1.3)
[2024-10-06 09:18] LABS: Fibrinogen 81 mg/dL (175-375); Partial Thromboplastin Time 124.2 Seconds (22.0-36.0); Prothrombin Time 36.5 Seconds (9.0-12.2)
[2024-10-06 09:27] LABS: Slide Review Platelets confirmed
--- NOTE | 2024-10-06 10:17 | PD.NEPHPROG ---
Documentation for date of: 10/06/24 Subjective Subjective Interval history: Mr. Villegas is a 44-year-old male patient with past medical history of end-stage liver disease secondary to alcohol use disorder, esophageal varices s/p banding came to the hospital with complaints of altered mental status on 09/30/2024. Compliant with all his medications and is using lactulose. Last EGD was done in September 2024 that showed grade 1 esophageal varices, ulcers. Patient was admitted to the hospital for acute metabolic encephalopathy, likely due to hepatic encephalopathy from decompensated liver disease. Initially patient was admitted to floors and patient was found to have acute renal failure initially which resolved eventually but on 10/02/2024 patient was upgraded to the ICU as patient is tachypneic, tachycardic and was unable to tolerate BiPAP and intubated in ICU for acute respiratory failure. Nephrology was consulted in view of acute renal failure Labs as of 10/04/2024 showed WBC 26.7, Hb 8.4, platelets 209, sodium 134, potassium 5.6, bicarb <10, anion gap 17, BUN 43, creatinine 4.1, lactate 11.8, total bilirubin 22.7, AST 1391, ALT 232, albumin 2.7 At the time of examination, patient was intubated and sedated Patient was getting triflow catheter for CRRT On physical examination, patient appears icteric with swollen bilateral upper extremities and easy bruisability Will continue CRRT for 10 hours in view of electrolyte imbalance, severe metabolic acidosis, lactic acidosis 10/05/2024 Patient is seen and examined with his family at bedside in the ICU Vitals are stable with vasopressors physical examination remains unchanged Labs chest WBC 19.4, sodium 131, potassium 4.8, chloride 95, bicarb 14.5, BUN 21, creatinine 1.9, lactate 14.6 Patient is still anuric Will do HD today But the patient prognosis still remains poor. 10/06/2024 patient currently seen in ICU. Remains on pressors. On ventilator. Noted family decided on comfort care. Are planning to visit and after that probable withdrawal. Review of Systems Review of Systems ROS Unobtainable: unobtainable due to medical condition and due to endotracheal tube Exam Vital Signs Temp Pulse Resp BP Pulse Ox O2 Del Method O2 Flow Rate 37.8 C 120 H 35 H 91/36 L 98 Mechanical Ventilation 30 10/06/24 08:00 10/06/24 10:13 10/05/24 09:00 10/06/24 10:13 10/06/24 10:13 10/06/24 08:00 10/02/24 13:05 FiO2 55 10/06/24 10:13 Narrative Exam General: Comatose and intubated-in ICU. HEENT: Normocephalic, atraumatic, mucous membranes moist. icteric Heart: Regular rate and rhythm, no murmurs. Lungs: Clear to auscultation with no wheezing or crackles. Abdomen: Soft, severely distended, nontender, positive bowel sounds. ?No guarding or rebound tenderness. Neurologic: Unresponsive Extremities: No edema in the lower extremities and edematous bilateral upper extremities Skin: Easy bruisability noted at the site of IV access Objective Labs 10/06/24 07:30 10/06/24 10:03 Labs: Laboratory Results - last 24 hr 10/05/24 10/05/24 10/05/24 07:12 15:39 19:00 WBC RBC Hgb Hct MCV MCH MCHC RDW Std Deviation Plt Count Neut % (Auto) Lymph % (Auto) [place] % (Auto) Eos % (Auto) Baso % (Auto) Neut # (Auto) Lymph # (Auto) [place] # (Auto) Eos # (Auto) Baso # (Auto) Immature Gran # (Auto) Absolute Nucleated RBC Immature Gran % Neutrophils % (Manual) 81 H Monocytes % (Manual) 6 Nucleated RBC % Band Neutrophils 9 H Lymphocytes (Manual) 4 L PT INR APTT Fibrinogen D-Dimer Puncture Site ABG pH ABG pCO2 ABG pO2 ABG HCO3 ABG O2 Saturation ABG Base Excess FiO2 Sodium 132 L Potassium 4.2 D Chloride 97 L Carbon Dioxide 21.9 Anion Gap 13 BUN 11 Creatinine 1.0 D Estim Creat Clear Calc 96.4 eGFR > 60 BUN/Creatinine Ratio 11 L Glucose 93 Calculated Osmolality 263 L Lactic Acid 6.8 H* 2.2 H Calcium 8.7 Corrected Calcium 9.7 Phosphorus 2.3 L Total Bilirubin AST ALT Alkaline Phosphatase Ammonia Total Protein Albumin 2.7 L Globulin Albumin/Globulin Ratio Misc Test Result Crossmatch 10/05/24 10/05/24 10/06/24 21:52 22:57 03:25 WBC 14.2 H D RBC 2.64 L Hgb 7.3 L Hct 21.3 L* MCV 81 MCH 27.7 MCHC 34.3 RDW Std Deviation 71.6 H Plt Count 68 L D Neut % (Auto) 84 H Lymph % (Auto) 9 L [place] % (Auto) 6 Eos % (Auto) 0 Baso % (Auto) 0 Neut # (Auto) 11.9 H Lymph # (Auto) 1.3 [place] # (Auto) 0.9 H Eos # (Auto) 0.0 Baso # (Auto) 0.0 Immature Gran # (Auto) 0.19 H Absolute Nucleated RBC 0.60 H Immature Gran % 1 H Neutrophils % (Manual) Monocytes % (Manual) Nucleated RBC % 4 H Band Neutrophils Lymphocytes (Manual) PT 36.5 H* INR 3.7 H APTT 124.2 H* Fibrinogen 81 L* D-Dimer 3510 H Puncture Site ABG pH ABG pCO2 ABG pO2 ABG HCO3 ABG O2 Saturation ABG Base Excess FiO2 Sodium 134 L 134 L Potassium 3.6 D 3.6 Chloride 98 98 Carbon Dioxide 22.5 21.1 Anion Gap 14 15 BUN 9 11 Creatinine 1.1 1.4 H Estim Creat Clear Calc 87.7 68.9 eGFR > 60 > 60 BUN/Creatinine Ratio 8 L 8 L Glucose 79 79 Calculated Osmolality 265 L 266 L Lactic Acid 7.0 H* 8.5 H* Calcium 9.1 9.1 Corrected Calcium 10.3 H 10.4 H Phosphorus 2.2 L 2.3 L Total Bilirubin 21.9 H* D AST 1497 H* ALT 471 H Alkaline Phosphatase 265 H Ammonia Total Protein 5.7 Albumin 2.5 L 2.4 L Globulin 3.3 Albumin/Globulin Ratio 0.7 L Misc Test Result Platelets confirmed Crossmatch 10/06/24 10/06/24 10/06/24 06:22 07:30 10:03 WBC 15.4 H RBC 2.24 L Hgb 6.2 L* Hct 18.6 L* MCV 83 MCH 27.7 MCHC 33.3 RDW Std Deviation 75.2 H Plt Count 69 L Neut % (Auto) 83 H Lymph % (Auto) 9 L [place] % (Auto) 7 Eos % (Auto) 0 Baso % (Auto) 0 Neut # (Auto) 12.7 H Lymph # (Auto) 1.4 [place] # (Auto) 1.0 H Eos # (Auto) 0.0 Baso # (Auto) 0.0 Immature Gran # (Auto) 0.21 H Absolute Nucleated RBC 0.72 H Immature Gran % 1 H Neutrophils % (Manual) Monocytes % (Manual) Nucleated RBC % 5 H Band Neutrophils Lymphocytes (Manual) PT INR APTT Fibrinogen D-Dimer Puncture Site Arterial Line ABG pH 7.45 D ABG pCO2 30 L ABG pO2 72 L ABG HCO3 20 ABG O2 Saturation 95 ABG Base Excess -4 L FiO2 55 Sodium Potassium Chloride Carbon Dioxide Anion Gap BUN Creatinine Estim Creat Clear Calc eGFR BUN/Creatinine Ratio Glucose Calculated Osmolality Lactic Acid 10.8 H* Calcium Corrected Calcium Phosphorus Total Bilirubin AST ALT Alkaline Phosphatase Ammonia 118 H* Total Protein Albumin Globulin Albumin/Globulin Ratio Misc Test Result Platelets confirmed Crossmatch See Detail ABG Interpretation ABG results: 09/29/24 10/02/24 10/02/24 19:27 11:59 17:09 ABG pH 7.41 7.39 7.29 L D ABG pCO2 24 L 24 L 32 ABG pO2 58 L* 108 D 86 D ABG HCO3 15 L 14 L 15 L ABG O2 Saturation 92 99 H 97 ABG Base Excess -8 L -10 L -10 L VBG pH VBG pCO2 VBG pO2 VBG Base Excess 10/02/24 10/02/24 10/02/24 19:42 21:33 22:35 ABG pH 7.12 L* D 7.21 L 7.25 L ABG pCO2 51 H D 41 D 33 ABG pO2 334 H D 54 L* D 233 H D ABG HCO3 17 L 16 L 14 L ABG O2 Saturation 101 H 84 L 101 H ABG Base Excess -12 L -11 L -12 L VBG pH VBG pCO2 VBG pO2 VBG Base Excess 10/03/24 10/03/24 10/03/24 06:49 09:59 11:35 ABG pH 7.17 L* 7.10 L* 7.10 L* ABG pCO2 37 36 33 ABG pO2 85 D 83 92 ABG HCO3 14 L 11 L 10 L ABG O2 Saturation 96 95 97 ABG Base Excess -14 L -17 L -18 L VBG pH VBG pCO2 VBG pO2 VBG Base Excess 10/04/24 10/04/24 10/04/24 06:00 06:44 11:26 ABG pH 6.87 L* D 6.99 L* D ABG pCO2 29 L 34 ABG pO2 100 62 L D ABG HCO3 5 L* 8 L* ABG O2 Saturation 96 87 L ABG Base Excess -27 L -22 L VBG pH 6.88 L VBG pCO2 29 L VBG pO2 95 H VBG Base Excess -26 L 10/04/24 10/04/24 10/05/24 16:02 18:33 06:27 ABG pH 7.22 L D 7.29 L 7.28 L ABG pCO2 32 32 30 L ABG pO2 58 L* 93 D 82 L ABG HCO3 13 L 15 L 14 L ABG O2 Saturation 88 L 98 97 ABG Base Excess -14 L -10 L -11 L VBG pH VBG pCO2 VBG pO2 VBG Base Excess 10/06/24 06:22 ABG pH 7.45 D ABG pCO2 30 L ABG pO2 72 L ABG HCO3 20 ABG O2 Saturation 95 ABG Base Excess -4 L VBG pH VBG pCO2 VBG pO2 VBG Base Excess Assessment & Plan Additional Assessment & Plan Additional Plan: 44-year-old male patient with past medical history of end-stage liver disease secondary to alcohol use disorder, esophageal varices s/p banding came to the hospital with complaints of altered mental status on 09/30/2024 and consulted for acute renal failure and electrolyte imbalance # Acute renal failure Hepatorenal syndrome in the setting of decompensated liver failure versus ATN Patient with multiple system organ failure-acute respiratory failure needing ventilator, acute liver failure, acute renal failure with abdominal urinary output, coagulopathy, sepsis, hypotension needing pressors. Decided to proceed with CRRT. Patient received 2 CRRT sessions with no improvement in his overall prognosis. Plan of care discussed with ICU and ICU team. Prognosis remains guarded. Last drink was in July. Not a candidate for liver transplant at this point. Family aware. Explained that his prognosis overall is poor. Family made him comfort care. Critical care time spent more than 40 minutes regarding plan of care and disease management. # Severe metabolic acidosis # Lactic acidosis #Shock, unknown etiology #Likely distributive from end stage liver disease vs sepsis #Acute hypoxic respiratory failure #Moderate ARDS #Pneumonia #End-stage liver disease #Hyperbilirubinemia #Ascites #Leukocytosis #Anemia #Coagulopathy #Hypoglycemia #Sepsis secondary to pneumonia #Upper extremity edema -Rest of the medical conditions to be treated as per ICU team
[2024-10-06] MEDS: Norepinephrine/NS 16mg/250ml 16 MG/250 ML BAG 116.719 MG IV (10:33)
[2024-10-06 10:34] LABS: Albumin, Serum 2.4 gm/dL (3.5-5.0); Anion Gap 17 (7-16); BUN/Creatinine Ratio 8 Ratio (12-20); Blood Urea Nitrogen 13 mg/dL (9-23); Calcium 8.1 mg/dL (8.3-10.6); Calcium (Corrected) 9.4 mg/dL (8.5-10.1); Carbon Dioxide 17.3 mMol/L (20.0-31.0); Chloride 98 mMol/L (98-107); Creatinine (Component) 1.7 mg/dL (0.6-1.3); Estimated Creatinine Clearance 56.8 mL/min (>60); Glucose 73 mg/dL (74-106); Osmolality,Calculated 263 (275-295); Phosphorous 3.8 mg/dL (2.4-5.1); Potassium 4.6 mMol/L (3.4-5.1); Sodium 132 mMol/L (136-145); eGFR 50 See Note
--- NOTE | 2024-10-06 11:18 | EVENTNT_ITS ---
<Statement entered by Wilfred Wyatt MD - 10/07/24 07:50> I saw and evaluated the patient. I reviewed the resident?s note and agree with findings and plan as documented in the resident?s note. We were informed by the bedside nurse that family requested to transition to comfort care. Family conference was requested to clarify family's goals of care. A clinical update was provided including the patient's continued coma state. Family was informed that there were multiple reasons for this, including hepatic encephalopathy septic encephalopathy prolonged effects of sedation, possible intracranial complications due to severe coagulopathy such bleeding, versus prolonged effects of metabolic acidosis. The family was also informed of the patient's hemodynamic status was deteriorating. Davion copious GI bleeding was identified with a gastric lavage. The patient has new acute on chronic anemia and esophageal varices were the most likely etiology. They understood that GI consult was requested but endoscopy was considered very high risk. They were also informed that blood products were ordered including FFP. Due to the worsening hemodynamics, renal replacement therapy would have to be placed on hold. A new fever was concerning as well as to a possible new source of infection. The family felt that due to the patient's poor baseline health, noncompliance with medical care, and severe critical current state, comfort care would be best. The patient avoided physician appointments and the family did not think continued aggressive medical care and management especially given his poor prognosis. They felt the best medical therapeutic option for him would be to allow him to pass away peacefully with comfort care. Documentation for date of: 10/06/24 Event Note Event Note: A goals of care meeting was held earlier today, with all family members present, including the patient?s mother and two sisters. Marianna, the patient's sister who serves as the primary point of contact and decision-maker, was also in attendance. During the meeting, we discussed in depth the patient?s current critical condition. The medical team explained that the patient has developed progressive multiorgan system failure, which has significantly worsened. . Additionally, there has been a substantial increase in the patient?s vasopressor requirements in an attempt to maintain blood pressure. Unfortunately, despite these efforts, the patient is now also suffering from an acute gastrointestinal bleed, which further complicates the situation. At this stage, we made it clear to the family that there are no further medical interventions or treatments that are likely to improve the patient?s chances of achieving a meaningful recovery. The focus of care has shifted, as it is unlikely that any additional treatments will reverse the patient's deteriorating condition. In addition to the physical issues, a neurological examination was conducted. Despite being off sedation for the past 72 hours, the patient has shown no signs of awakening, indicating a poor prognosis in terms of neurological recovery. After thoroughly reviewing the patient's clinical/unstable condition and prognosis, the family, including Marianna, discussed the situation at length. Following this discussion, they made the difficult but informed decision to transition the patient to comfort care. The decision was made with the goal of allowing the patient to pass peacefully and without further aggressive interventions. Family wishes will be respected. Comfort care measures set was ordered. Family will be given a time to say goodbye before patient transitions to comfort care. Patient care was discussed with attending physician Dr. Wyatt. Tierney Capps MD PGY-2
--- NOTE | 2024-10-06 11:20 | PC.NURSE ---
[facility] and spoke to Jenny, Patient not suitable for donation. ref # [id number]
[2024-10-06] MEDS: fentaNYL CIT INJ 50 mCg/ML AMP 2ML IVP ×3 (12:50→13:02)
[2024-10-06] MEDS: SCOPOLAMINE 1 MG TDSY TOP (12:51)
--- NOTE | 2024-10-06 13:38 | DES_ITS ---
<Statement entered by Wilfred Wyatt MD - 10/07/24 07:51> I saw and evaluated the patient. I reviewed the resident?s note and agree with findings and plan as documented in the resident?s note. Documentation for date of: 10/06/24 Pronouncement Note Date and Time of Date of : 10/06/24 Time of : 13:35 PCOD Preliminary cause of : Cardiopulmonary arrest Summary Additional details: Our team was called to pronounce the of patient Bakari Moore in Room 257. Upon examination, no active heart or breath sounds were noted after 1 continuous minute of auscultation. Pupils were unresponsive to light/touch/external stimuli. Patient was pronounced on 10/06/2024 at 13:35[address] Dr. Wyatt was notified. The patient's family was present & consoled. Above was discussed with attending physician Dr. Yoselin Capps MD PGY-2 Additional Data Confirmation of : no pulse, no respirations, no heart sounds and pupils fixed and dilated Family: at bedside Attending physician: Wilfred Wyatt MD Was code activated?: No Autopsy requested?: No coat examiner notified?: Yes Organ bank notified?: Yes
--- NOTE | 2024-10-06 13:42 | DES_ITS ---
<Statement entered by Wilfred Wyatt MD - 10/07/24 07:52> TOTAL TIME: 45MINUTES ON DIRECT MEDICAL CARE, MANAGEMENT - COORDINATION AND COUNSELING > 50% OF TOTAL TIME I saw and evaluated the patient. I reviewed the resident?s note and agree with findings and plan as documented in the resident?s note. Documentation for date of: 10/06/24 Summary Date and Time Date of admission: 09/30/24 01:41 Summary Hospital Course: The patient is a 44-year-old male with a significant medical history, including end-stage liver disease and alcoholic cirrhosis, as well as a history of gastrointestinal bleeding, status post esophageal varices banding. The patient presented to the emergency department with acute shortness of breath. Upon arrival, the patient was initially diagnosed with sepsis secondary to pneumonia and was admitted for further management. He was placed on telemetry monitoring to monitor his vital signs and rhythm. However, his clinical status rapidly worsened as he became progressively tachypneic and tachycardic . In an attempt to reduce his work of breathing, the patient was placed on BiPAP . Despite this intervention, the patient remained tachypneic and had significant difficulty tolerating the BiPAP. Further diagnostic workup revealed that the patient had developed acute respiratory failure. Given the persistence of respiratory distress and the worsening clinical situation, the decision was made to transfer the patient to the ICU for more intensive monitoring and management. As his condition continued to deteriorate, the team decided to intubate the patient and initiate mechanical ventilation to protect the airway and provide respiratory support. 10/03/24 Patient seen and examined at bedside. Overnight, patient had a temperature of 100.5. Additionally, blood pressure was soft, he received 1 L of fluids and was still hypotensive. Pressors-Levophed and vasopressin which started. Lactic acid this morning at 5.3, repeat at 7.0 At bedside today, patient is sedated and paralyzed on propofol, fentanyl and Nimbex. ABG ths morning- pH-7.17, CO2-36, HCO3- 13.3. Vent settings adjusted, increased TV , RR already at 34, PEEP at 12. On examination, icteric with ascitic abdomen, also has right upper extremity edema which will follow-up with a Doppler ultrasound to rule out DVT. Labs reviewed, downtrending WBCs, stable anemia, hypokalemia, acute kidney injury with creatinine of 2.3, hyperglycemia. T. bili at 23.3, mild transaminitis and hypoalbuminemia. Will add on Versed as patient is currently paralyzed, will repeat all cultures. Will also put on a Cheetah to evaluate hemodynamic parameters for etiology of shock and continue lung protective strategies for ARDS. In the interim, continue antibiotics, repeat ABGs as Vent settings adjusted for respiratory compensation of metabolic acidosis, as well as obtain urine lytes to evaluate urine anion gap and causes of NAGMA 10/04/24: Patient seen and examined at bedside. Overnight, continue to be in high pressors demand. Levophed at 0.7 with vaso at 0.03, continues to be on fentanyl and propofol. IV hydrocortisone added to attempt to reduce pressor requirements. Patient received another liter of IV fluids overnight as well as albumin. Lactic acid continues to be elevated, currently at 13.6. Patient has continued to be anuric, with only able to 10 cc urine output overnight. His CO2 in the 90s. Other labs evaluated, creatinine elevated to 4.1, potassium of 5.6, elevated transaminases within the values of ischemic hepatitis and uptrending WBCs. Nephrology consulted for emergent dialysis, consent obtained from family for CRRT. Bicarb pushes also given Will continue renal panel as well as ABGs every 6 hours Additionally, will do a diagnostic paracentesis to exclude SBP as additional source of sepsis. Family has been contacted and updated, patient remains to be full code, will h ave a goals of care discussion once all concerned parties are available 10/05/24: 10/05/2024- Patient seen and examined at bedside. Overnight, continued to have very minimal urine output, 10 cc only, lactates continue to be elevated up to 14. Levophed requirements initially uptrending up to 1.44. All sedation turned off in the early hours of yesterday. At bedside today, GCS is 3T. Pupil reflex very minimal and sluggish, no corneal or oculocephalic reflex. pH this morning 7.28 with CO2 of 30 and bicarb of 14. Lactic acid at 14.6, had CRRT yesterday for about 12 hours. Per nephrology, will have another session today. Other labs reviewed, significant elevated transaminases and bilirubin, downtrending leukocytosis, stable hemoglobin at 8.3. Blood cultures returned for micrococcus in 1 bottle, likely to be contamination. Cheetah put on evaluate for fluid responsiveness, patient is not fluid responsive. Will continue to down titrate pressors as tolerated. Goals of care discussion had with family today, patient transitioned to DNR. 10/06/24: Patient overnight had a fever of approximately 100.0. The likely source of infection is suspected to do pneumonia. Patient is covered with Zosyn and vancomycin. Peritoneal fluid culture is still pending and leukocytosis has shown improvement. Chest x-ray is positive for PNA. Recent blood culture preliminary result is negative. Sputum culture still pending It was noted that the previous blood culture, collected on 09/29/2024, showed a positive result for GPC. However the lab has determined this result to be likely due to contamination, possible due to issues with precipitation process or reading error. The patient?s hemoglobin dropped from 8.1 to 6.2. An NG lavage was performed, r evealing an upper GI bleed. The patient will receive 2 units of PRBCs and 2 units of FFPs. A Cheetah monitor has been placed, and the patient is responsive to fluid resuscitation. A repeat ABG showed primary respiratory alkalosis with a pH of 7.45 and a CO2 of 31. We will maintain safe ventilatory settings with low tidal volume, reducing tidal volume from 450 mL to 380 mL. A follow-up ABG will be performed. The AGMA has resolved, and the patient underwent CRRT therapy. However, lactic acidosis increased to 10.8, and the patient is currently too unstable to undergo another session of CRRT. Minimal urine output is noted. Ammonia level was 118. Given the concern for GI bleed, we will defer increasing the lactulose dose and continue the current dosage of lactulose 20 mg four times daily. The patient's condition remains critical, and the family was updated on the clinical course. Throughout his hospital stay, the patient?s condition continued to decline. He developed septic shock and required significant pressor support. His lactic acid levels were severely elevated, indicating poor tissue perfusion, and an arterial blood gas revealed severe mixed acidotic disorder. A chest X-ray raised concern for the development of acute respiratory distress syndrome. Despite being placed on safe ventilatory settings, the patient?s condition worsened, and he developed multiorgan failure. This included renal failure, with anuria , and liver failure,. As his condition progressed, his vasopressor requirements increased significantly in an effort to maintain perfusion. Given the renal failure, nephrology was consulted, and the patient was started on continuous renal replacement therapy. Despite this intervention, there was no significant improvement in his condition. His acidotic state persisted, he remained anuric, and his liver panel continued to worsen. His vasopressor requirements remained high. The patient was off sedation, but his neurological status did not improve. He de monstrated fixed, non-reactive pupils, was unresponsive, and had a [place] Coma Scale score of 3 . There was no gag reflex or oculocephalic reflexes, further indicating a poor neurological prognosis. Goals of Care and Family Discussion: In light of the patient?s rapid clinical deterioration, multiple goals of care discussions were held with the family. The family was kept informed about the patient?s poor prognosis, multisystem failure, and the likelihood that the patient would not recover meaningfully. The family was also updated about the patient?s worsening condition, including the lack of improvement despite all efforts to stabilize him. After thoroughly discussing the prognosis and the medical options available, the family made the difficult decision to transition the patient to comfort care, focusing on providing relief from suffering and allowing him to pass peacefully. Patient transitioned to comfort care, and at 13:35 patient pronounced . Family was at bedside and consoled. Patient care was discussed with attending physician Dr. Yoselin Capps MD PGY-2 I have carefully reviewed this document. Due to imperfections in the voice software, there could be grammatical errors including phonetic/typographic errors. This in no way compromises the medical care the patient is receiving Additional Data Attending physician: Wilfred Wyatt MD Visit Providers Provider Primary care physician: Physician Brianda Primary/Family Consults: 10/04/24 07:12 Consult to Nephrology Stat Comment: Consulting Provider: Cecily Arriaga Discharge Plan Problem List Was Problem List Reviewed/Reconciled?: Yes Plan Patient Disposition: Prescriptions/Referrals Prescriptions/Med Rec: No Action midodrine 5 mg Tablet 10 mg PO TID 30 Days Qty: 180 0RF Xifaxan 550 mg Tablet 550 mg PO BID 30 Days Qty: 60 0RF fluconazole [Diflucan] 200 mg tablet 400 mg PO QDAY 30 Days Qty: 60 0RF furosemide 40 mg tablet 40 mg PO QDAY Qty: 30 0RF lactulose 10 gram/15 mL solution 30 g PO QID Qty: 3785 0RF pantoprazole 40 mg tablet,delayed release (DR/EC) 40 mg PO BID Qty: 60 0RF prednisone 20 mg tablet 20 mg PO DAILY Patient Comments: TAKE ONE TABLET BY MOUTH DAILY WITH FOOD nicotine 14 mg/24 hr Patch 24 Hour 14 mg top QDAY Qty: 14 0RF spironolactone 25 mg Tablet 25 mg PO BID 30 Days Qty: 60 0RF Referrals: No Primary/Family,Physician [Primary Care Provider] - Patient/Caregiver Discharge Instructions Education Materials: Paracentesis Dc Print Language: Tristanian
== END 2024-10-06 13:35 | disposition expired | DRG 720 ==
LOC: SERX 09-30 01:58 → SERHOLD 09-30 02:20 → S3NX 09-30 05:45 → S2SX 10-02 17:01
PROVIDERS: Internal Medicine; Student in an Organized Health Care Education/Training Program; Admitting Provider Internal Medicine; Emergency Provider Emergency Medicine; Visit Provider Internal Medicine
DX: A41.9 Sepsis, unspecified organism (principal); K76.82 Hepatic encephalopathy; K70.40 Alcoholic hepatic failure without coma; N17.9 Acute kidney failure, unspecified; G93.41 Metabolic encephalopathy; E03.9 Hypothyroidism, unspecified; J18.9 Pneumonia, unspecified organism; Y95 Nosocomial condition; D62 Acute posthemorrhagic anemia; K70.31 Alcoholic cirrhosis of liver with ascites; K22.11 Ulcer of esophagus with bleeding; D68.4 Acquired coagulation factor deficiency; R65.21 Severe sepsis with septic shock; I85.11 Secondary esophageal varices with bleeding; F41.9 Anxiety disorder, unspecified; E88.09 Other disorders of plasma-protein metabolism, not elsewhere classified; E83.39 Other disorders of phosphorus metabolism; E87.6 Hypokalemia; E87.5 Hyperkalemia; E87.4 Mixed disorder of acid-base balance; I46.8 Cardiac arrest due to other underlying condition; Z91.199 Patient's noncompliance with other medical treatment and regimen due to unspecified reason; Z51.5 Encounter for palliative care; Z79.899 Other long term (current) drug therapy; Z66 Do not resuscitate; I80.9 Phlebitis and thrombophlebitis of unspecified site
CPT/HCPCS: 36415; 36600; 70450; 71045; 71275; 74176; 76705; 80053; 80069; 80202; 80307; 80320; 81001; 82010; 82042; 82140; 82150; 82436; 82803; 82945; 83605; 83615; 83690; 83735; 83880; 84100; 84133; 84145; 84157; 84300; 84439; 84443; 84484; 85007; 85014; 85018; 85025; 85027; 85379; 85384; 85610; 85730; 86850; 86900; 86901; 86921; 86922; 86927; 87040; 87070; 87075; 87077; 87081; 87086; 87205; 87449; 87502; 87634; 87811; 89051; 93005; 93225; 93306; 93971; 94002; 94003; 94660; 94762; 96365; 96366; 96367; 96368; 99291; A4649; J0330; J1642; J1643; J1720; J1940; J2251; J2405; J2470; J2543; J2598; J2704; J3010; J3370; J3430; J3475; J3480; J3490; J7030; J7040; J7050; J7120; J7121; P9047; Q9967; Q9968; A9270; G0480